=== PATIENT | male | born 1975 | race American Indian/Alaskan Native ===

== ENCOUNTER 2020-06-17 09:53 | Inpatient (IN) | payer OTHER ==
[2020-06-17] MEDS ORDERED: LORazepam 2 MG/ML VIAL ONE (10:26)
[2020-06-17] MEDS ORDERED: SODIUM CHLORIDE 0.9% 1000 ML 1,000 ML IV ONE ×2 (10:27)
[2020-06-17] MEDS ORDERED: LORazepam 2 MG/ML VIAL IV ONE (10:27)
--- NOTE | 2020-06-17 10:35 | Emergency Department Report ---
HPI - General Chief Complaint: Hypoglycemia Time Seen by Provider: 06/17/20 10:19 - HPI HPI: Room 17 The patient is a 44-year-old male present with chief complaint of altered mental status. Per EMS the patient was found lying on the ground outside in the rain. No past medical history was obtained the patient was found to be hyperglycemic. The patient does not answer questions ED Past Medical Hx - Past Medical History Additional medical history: unknown found down in front of home - Surgical History Past Surgical History?: No Additional Surgical History: unknown - Family History Family history: no significant - Social History Smoking Status: Unknown if ever smoked Substance Use Type: Other ED Review of Systems ROS: Stated complaint: UNRESPONSIVE Other details as noted in HPI Comment: Unobtainable due to pts medical conditions Physical Exam - Physical Exam Vital Signs: Vital Signs 06/17/20 10:20 Temperature 97.0 F L Pulse Rate 98 H Respiratory 22 Rate Blood Pressure 96/56 Blood Pressure 96/56 [Right] O2 Sat by Pulse 100 Oximetry Physical Exam: GENERAL: The patient is well-developed well-nourished male lying on stretcher under Aida hugger bilateral upper extremities drawn and similar to decorticate positioning. Patient appears to be shivering HEENT: Normocephalic. Atraumatic. NECK: Supple. Trachea midline CHEST/LUNGS: Clear to auscultation. There is no respiratory distress noted. HEART/CARDIOVASCULAR: Regular. There is no tachycardia. There is no gallop rub or murmur. ABDOMEN: Abdomen is soft, nontender. Patient has normal bowel sounds. There is no abdominal distention. SKIN: There is no rash. There is no edema. There is no diaphoresis. NEURO: The patient does not respond to verbal or tactile stimuli. Patient does not make eye contact MUSCULOSKELETAL: There is no evidence of acute injury. ED Course Vital Signs 06/17/20 10:20 Temperature 97.0 F L Pulse Rate 98 H Respiratory 22 Rate Blood Pressure 96/56 Blood Pressure 96/56 [Right] O2 Sat by Pulse 100 Oximetry ED Medical Decision Making - Lab Data Result diagrams: 06/17/20 11:24 06/17/20 11:24 Laboratory Tests 06/17/20 06/17/20 12 11:24 11:24 11:24 WBC 14.7 H RBC 5.38 H Hgb 14.4 Hct 49.1 H MCV 91 MCH 27 L MCHC 29 L RDW 14.4 Plt Count 265 Lymph % (Auto) 9.9 L Raw[place] % (Auto) 2.8 Eos % (Auto) 0.0 Baso % (Auto) 0.5 Lymph # (Auto) 1.5 [place] # (Auto) 0.4 Eos # (Auto) 0.0 Baso # (Auto) 0.1 Seg Neutrophils % 86.8 H Seg Neutrophils # 12.8 H PT 22.1 H INR 1.92 H APTT 38.9 H VBG pH Sodium 149 H Potassium 3.8 Chloride 100.6 Carbon Dioxide 23 Anion Gap 29 BUN 84 H Creatinine 3.6 H Estimated GFR 19 BUN/Creatinine Ratio 23 Glucose 1394 H* Calcium 9.8 Magnesium Total Bilirubin 0.40 AST 59 H ALT 25 Alkaline Phosphatase 82 Ammonia Total Creatine Kinase 5507 H CK-MB (CK-2) 7.9 H CK-MB (CK-2) Rel Index 0.1 Troponin T Total Protein 9.0 H Albumin 3.7 L Albumin/Globulin Ratio 0.7 TSH Free T4 Plasma/Serum Alcohol 06/17/20 06/17/20 06/17/20 11:24 11:24 11:24 WBC RBC Hgb Hct MCV MCH MCHC RDW Plt Count Lymph % (Auto) Rawlins % (Auto) Eos % (Auto) Baso % (Auto) Lymph # (Auto) [place] # (Auto) Eos # (Auto) Baso # (Auto) Seg Neutrophils % Seg Neutrophils # PT INR APTT VBG pH Sodium Potassium Chloride Carbon Dioxide Anion Gap BUN Creatinine Estimated GFR BUN/Creatinine Ratio Glucose Calcium Magnesium 6.20 H Total Bilirubin AST ALT Alkaline Phosphatase Ammonia 56.0 Total Creatine Kinase CK-MB (CK-2) CK-MB (CK-2) Rel Index Troponin T < 0.010 Total Protein Albumin Albumin/Globulin Ratio TSH 0.914 Free T4 1.65 H Plasma/Serum Alcohol 06/17/20 06/17/20 11:24 11:24 WBC RBC Hgb Hct MCV MCH MCHC RDW Plt Count Lymph % (Auto) [place] % (Auto) Eos % (Auto) Baso % (Auto) Lymph # (Auto) [place] # (Auto) Eos # (Auto) Baso # (Auto) Seg Neutrophils % Seg Neutrophils # PT INR APTT VBG pH 7.123 L* Sodium Potassium Chloride Carbon Dioxide Anion Gap BUN Creatinine Estimated GFR BUN/Creatinine Ratio Glucose Calcium Magnesium Total Bilirubin AST ALT Alkaline Phosphatase Ammonia Total Creatine Kinase CK-MB (CK-2) CK-MB (CK-2) Rel Index Troponin T Total Protein Albumin Albumin/Globulin Ratio TSH Free T4 Plasma/Serum Alcohol < 0.01 - Radiology Data Radiology results: report reviewed (CT head, CT cervical spine), image reviewed (CT head, CT cervical spine) [facility] [address] [place] [address] Cat Scan Report Signed Patient: JERARDO LOPEZ MR #: [id number] : 1975 Acct:[id number] Age/Sex: 44 / M ADM Date: 06/17/20 Loc: ED Attending Dr: Ordering Physician: ANNE MYERS MD Date of Service: 06/17/20 Procedure(s): CT head/brain wo con Accession Number(s): [id number] cc: ANNE MYERS MD CT HEAD WITHOUT CONTRAST INDICATION / CLINICAL INFORMATION: Found lying outside in the rain, AMS. TECHNIQUE: All CT scans at this location are performed using CT dose reduction for ALARA by means of automated exposure control. COMPARISON: None available. FINDINGS: HEMORRHAGE: No evidence of intracranial hemorrhage or extra-axial fluid collection. EXTRA-AXIAL SPACES: Cortical sulci, sylvian fissures and basilar cisterns have an unremarkable appearance. VENTRICULAR SYSTEM: The third and lateral ventricles are of normal size and configuration. CEREBRAL PARENCHYMA: No areas of abnormal brain parenchymal attenuation are identified. There is no indication of recent infarction. MIDLINE SHIFT OR HERNIATION: There is no mass effect. CEREBELLUM / BRAINSTEM: Brainstem and cerebellum have an unremarkable appearance. MIDLINE STRUCTURES:No abnormalities of the pituitary gland or pineal region are identified. INTRACRANIAL VESSELS:No abnormalities are identified on this noncontrast head CT. ORBITS: visualized portions of the orbits have an unremarkable appearance. SOFT TISSUES of HEAD: No significant abnormality. CALVARIUM: Evaluation of bone windows reveals no abnormalities. PARANASAL SINUSES / MASTOID AIR CELLS: Visualized portions of the paranasal sinuses are free from inflammatory mucosal disease. Mastoid air cells are normally pneumatized. IMPRESSION: 1. No acute intracranial abnormality. Signer Name: Donnie Malave MD Signed: 06/17/2020 12:43 PM Workstation Name: [id number] Transcribed By: Dictated By: Donnie Malave MD Electronically Authenticated By: Donnie Malave MD Signed Date/Time: 06/17/20 1243 DD/ 1236 TD/TT: [facility] [address] [place] [address] Cat Scan Report Signed Patient: JERARDO LOPEZ MR #: [id number] : 1975 Acct:[id number] Age/Sex: 44 / M ADM Date: 06/17/20 Loc: ED Attending Dr: Ordering Physician: ANNE MYERS MD Date of Service: 06/17/20 Procedure(s): CT cervical spine wo con Accession Number(s): [id number] cc: ANNE MYERS MD CT CERVICAL SPINE WITHOUT CONTRAST INDICATION / CLINICAL INFORMATION: Found lying outside in the rain, AMS. TECHNIQUE: Axial CT images were obtained through the cervical spine. Sagittal and coronal reformatted images were produced. All CT scans at this location are performed using CT dose reduction for ALARA by means of automated exposure control. COMPARISON: None available. FINDINGS: ALIGNMENT: No significant abnormalities of alignment are identified. There is no indication of traumatic subluxation. VERTEBRAE: No indication of fracture. Incidental note is made of a bone island at the superior endplate of C7 vertebral body. DISC SPACES: Disc height is decreased at the C5-6 level. DEGENERATIVE CHANGES: Anterior osteophyte formation is noted at the C4-5, C5-6 and C6-7 levels. Uncovertebral arthropathy is observed at the C5-6 and C6-7 levels. Multifocal neuroforaminal narrowing is observed. There is no indication of central canal stenosis. CRANIOCERVICAL JUNCTION:No significant abnormality. SPINAL CANAL: Central spinal canal is adequately maintained throughout. PARASPINAL SOFT TISSUES: No significant abnormality. LUNG APICES: Lung apices were entirely excluded from this examination. IMPRESSION: 1. No indication of fracture or traumatic subluxation. 2. Mild cervical spondylosis with multifocal neuroforaminal narrowing. Signer Name: Donnie Malave MD Signed: 06/17/2020 1:03 PM Workstation Name: [id number] Transcribed By: Dictated By: Donnie Malave MD Electronically Authenticated By: Donnie D. Frieda, MD Signed Date/Time: 06/17/20 1303 DD/ 1300 TD/TT: - Differential Diagnosis ICH, substance abuse, intoxication, rhabdomyolysis, seizures Critical care attestation.: If time is entered above; I have spent that time in minutes in the direct care of this critically ill patient, excluding procedure time. ED Disposition Clinical Impression: DKA (diabetic ketoacidoses), Rhabdomyolysis, Altered mental status Disposition: DC-09 OP ADMIT IP TO THIS HOSP Is pt being admited?: Yes Does the pt Need Aspirin: No Condition: Stable Instructions: Diabetic Ketoacidosis (ED) Referrals: PRIMARY CARE, [Primary Care Provider] - 3-5 Days Time of Disposition: 13:46 (Hospitalist notified (Dr. Dent))
[2020-06-17 11:44] LABS: Basophils # (Auto) 0.1 K/mm3 (0.0-0.1); Basophils % (Auto) 0.5 % (0.0-1.8); Lymphocytes # (Auto) 1.5 K/mm3 (1.2-5.4); Lymphocytes % (Auto) 9.9 % (13.4-35.0); Mean Corpuscular HGB Conc 29 % (32-34); Mean Corpuscular Volume 91 fl (84-94); Monocytes # (Auto) 0.4 K/mm3 (0.0-0.8); Monocytes % (Auto) 2.8 % (0.0-7.3); Platelet Count 265 K/mm3 (140-440); Red Blood Count 5.38 M/mm3 (3.65-5.03); Red Cell Distribution Width 14.4 % (13.2-15.2)
[2020-06-17 11:58] LABS: INR 1.92 (0.87-1.13)
[2020-06-17 11:59] LABS: Partial Thromboplastin Time 38.9 Sec. (24.2-36.6)
[2020-06-17 12:10] LABS: Albumin 3.7 g/dL (3.9-5); Calcium 9.8 mg/dL (8.4-10.2); Creatine Kinase MB 7.9 ng/mL (0.0-4.0)
[2020-06-17 12:17] LABS: Hematocrit 49.1 % (35.5-45.6); Hemoglobin 14.4 gm/dl (11.8-15.2)
[2020-06-17 12:20] LABS: Free T4 (Free Thyroxine) 1.65 ng/dL (0.76-1.46)
--- NOTE | 2020-06-17 12:47 | Cat Scan Report ---
CT HEAD WITHOUT CONTRAST INDICATION / CLINICAL INFORMATION: Found lying outside in the [facility], [facility]. TECHNIQUE: All CT scans at this location are performed using CT dose reduction for ALARA by means of automated e xposure control. COMPARISON: None available. FINDINGS: HEMORRHAGE: No evidence of intracranial hemorrhage or extra-axial fluid collection. EXTRA-AXIAL SPACES: Cortical sulci, sylvian fissures and basilar cisterns have an unremarkable appear ance. VENTRICULAR SYSTEM: The third and lateral ventricles are of normal size and configuration. CEREBRAL PARENCHYMA: No areas of abnormal brain parenchymal attenuation are identified. There is no i ndication of recent infarction. MIDLINE SHIFT OR HERNIATION: There is no mass effect. CEREBELLUM / BRAINSTEM: Brainstem and cerebellum have an unremarkable appearance. MIDLINE STRUCTURES:No abnormalities of the pituitary gland or pineal region are identified. INTRACRANIAL VESSELS:No abnormalities are identified on this noncontrast head CT. ORBITS: visualized portions of the orbits have an unremarkable appearance. SOFT TISSUES of HEAD: No significant abnormality. CALVARIUM: Evaluation of bone windows reveals no abnormalities. PARANASAL SINUSES / MASTOID AIR CELLS: Visualized portions of the paranasal sinuses are free from inf lammatory mucosal disease. Mastoid air cells are normally pneumatized. IMPRESSION: 1. No acute intracranial abnormality. Signer Name: Donnie Malave MD Signed: 06/17/2020 12:43 PM Workstation Name: [id number]
--- NOTE | 2020-06-17 13:07 | Cat Scan Report ---
CT CERVICAL SPINE WITHOUT CONTRAST INDICATION / CLINICAL INFORMATION: Found lying outside in the [facility]. TECHNIQUE: Axial CT images were obtained through the cervical spine. Sagittal and coronal reformatted images wer e produced. All CT scans at this location are performed using CT dose reduction for ALARA by means of automated exposure control. COMPARISON: None available. FINDINGS: ALIGNMENT: No significant abnormalities of alignment are identified. There is no indication of trauma tic subluxation. VERTEBRAE: No indication of fracture. Incidental note is made of a bone island at the superior endpla te of C7 vertebral body. DISC SPACES: Disc height is decreased at the C5-6 level. DEGENERATIVE CHANGES: Anterior osteophyte formation is noted at the C4-5, C5-6 and C6-7 levels. Uncov ertebral arthropathy is observed at the C5-6 and C6-7 levels. Multifocal neuroforaminal narrowing is observed. There is no indication of central canal stenosis. CRANIOCERVICAL JUNCTION:No significant abnormality. SPINAL CANAL: Central spinal canal is adequately maintained throughout. PARASPINAL SOFT TISSUES: No significant abnormality. LUNG APICES: Lung apices were entirely excluded from this examination. IMPRESSION: 1. No indication of fracture or traumatic subluxation. 2. Mild cervical spondylosis with multifocal neuroforaminal narrowing. Signer Name: Donnie Malave MD Signed: 06/17/2020 1:03 PM Workstation Name: [id number]
[2020-06-17] MEDS ORDERED: ALBUTEROL 2.5 MG/3 ML NEBU IH PRN (13:40)
[2020-06-17] MEDS ORDERED: HYDROmorphone 1 MG/1 ML INJ IV PRN (13:40)
[2020-06-17] MEDS ORDERED: SODIUM CHLORIDE 0.9% 1000 ML IV SOLN IV ONE (13:40)
--- NOTE | 2020-06-17 13:40 | History and Physical Report ---
History of Present Illness Chief complaint: Unresponsive History of present illness: 44 YO Male with unknown PMH presents to ED for evaluation. The patient is lethargic and unable to provide history at the time of my evaluation. Patient history taken from EMS staff, ED staff. As per staff, the patient was found hay n and unresponsive and lying on the ground outside his home by a neighbor who subsequently notified EMS. Upon arrival the patient was found to be lethargic and in distress and subsequently transported to [facility] for further care and evaluation of the aforementioned symptoms. The patient was seen and evaluated in the emergency department. All lab and imaging studies reviewed. The patient was found to have a body core temperature of 96 F, hypotensive with a blood pressure of 96/56, sepsis, toxic metabolic encephalopathy, acute kidney injury, rhabdomyolysis, as well as concomitant diabetic ketoacidosis. Patient admitted to ICU and initiated on sepsis as well as DKA protocols respectively. No further history obtainable. No prior admission for review. No medication listed for review at time of admission. Patient is confused and lethargic at time of my evaluation but has a positive gag reflex and is able to protect his airway without difficulty. Critical care team consulted in ED. Past History Past Medical History: other (Unknown, unable to obtain) Past Surgical History: Other (Unable to obtain) Social history: single, other (Unable to obtain) Family history: other (Unable to obtain) Medications and Allergies Allergies Allergy/AdvReac Type Severity Reaction Status Date / Time Unable to Assess Allergy Unverified 06/17/20 12:54 Active Meds: Active Medications Insulin Human Regular 100 (units/ Sodium Chloride) 100 mls @ 10 mls/hr IV TITR JERMAINE; Protocol Review of Systems ROS unobtainable: due to mental status Exam - Constitutional Vitals: Temp Pulse Resp BP Pulse Ox 97.0 F L 73 26 H 95/64 97 06/17/20 10:20 06/17/20 12:00 06/17/20 12:00 06/17/20 12:00 06/17/20 12:00 General appearance: Present: severe distress - EENT Eyes: Present: PERRL ENT: clear oral mucosa, hearing decreased - Neck Neck: Present: supple, normal ROM - Respiratory Respiratory: bilateral: CTA - Cardiovascular Rhythm: other (Tachycardia) Peripheral Pulses: abnormal (Capillary refill greater than 3.5 seconds) HEART Score - HEART Score Troponin: Troponin T < 0.010 ng/mL (0.00-0.029) 06/17/20 11:24 Results - Labs CBC & Chem 7: 06/17/20 11:24 06/18/20 11:40 Labs: Abnormal lab results 06/17/20 06/17/20 06/17/20 Range/Units 11:24 11:24 11:24 WBC 14.7 H (4.5-11.0) K/mm3 RBC 5.38 H (3.65-5.03) M/mm3 Hct 49.1 H (35.5-45.6) % MCH 27 L (28-32) pg MCHC 29 L (32-34) % Lymph % (Auto) 9.9 L (13.4-35.0) % Seg Neutrophils % 86.8 H (40.0-70.0) % Seg Neutrophils # 12.8 H (1.8-7.7) K/mm3 PT 22.1 H (12.2-14.9) Sec. INR 1.92 H (0.87-1.13) APTT 38.9 H (24.2-36.6) Sec. VBG pH (7.320-7.420) Sodium 149 H (137-145) mmol/L BUN 84 H (9-20) mg/dL Creatinine 3.6 H (0.8-1.3) mg/dL Glucose 1394 H* (75-100) mg/dL Magnesium (1.7-2.3) mg/dL AST 59 H (5-40) units/L Total Creatine Kinase 5507 H (55-170) units/L CK-MB (CK-2) 7.9 H (0.0-4.0) ng/mL Total Protein 9.0 H (6.3-8.2) g/dL Albumin 3.7 L (3.9-5) g/dL Free T4 (0.76-1.46) ng/dL 06/17/20 06/17/20 06/17/20 Range/Units 11: 11:24 11:24 WBC (4.5-11.0) K/mm3 RBC (3.65-5.03) M/mm3 Hct (35.5-45.6) % MCH (28-32) pg MCHC (32-34) % Lymph % (Auto) (13.4-35.0) % Seg Neutrophils % (40.0-70.0) % Seg Neutrophils # (1.8-7.7) K/mm3 PT (12.2-14.9) Sec. INR (0.87-1.13) APTT (24.2-36.6) Sec. VBG pH 7.123 L* (7.320-7.420) Sodium (137-145) mmol/L BUN (9-20) mg/dL Creatinine (0.8-1.3) mg/dL Glucose (75-100) mg/dL Magnesium 6.20 H (1.7-2.3) mg/dL AST (5-40) units/L Total Creatine Kinase (55-170) units/L CK-MB (CK-2) (0.0-4.0) ng/mL Total Protein (6.3-8.2) g/dL Albumin (3.9-5) g/dL Free T4 1.65 H (0.76-1.46) ng/dL Assessment and Plan - Patient Problems (1) Sepsis Current Visit: Yes Status: Acute Plan to address problem: Sepsis protocol: CBC, CMP, chest x-ray, urinalysis, IV fluid resuscitation therapy, IV antibiotic therapy, serial lactic acid, blood culture, monitor urine output every shift, monitor fluid balance, maintain mean arterial pressure grea ter than or equal to 65, The high probability of a clinically significant, sudden or life threatening deterioration of the [cardiac, neuro, pulmonary, renal, endocrine] system(s) required my full and direct attention, intervention and personal management. The aggregate critical care time was [65] minutes. This time is in addition to time spent performing reported procedures but includes the following: [x] Data Review and interpretation [x] Patient assessment and monitoring of vital signs [x] Documentation [x] Medication orders and management (2) Toxic metabolic encephalopathy Current Visit: Yes Status: Acute Plan to address problem: CT head without contrast, neuro check, seizure precautions, aspiration precautions (3) Rhabdomyolysis Current Visit: Yes Status: Acute Qualifiers: Encounter type: initial encounter Plan to address problem: IV fluid resuscitation therapy, repeat CK level, monitor urine output every shift, monitor fluid balance. (4) YUNI (acute kidney injury) Current Visit: Yes Status: Acute Plan to address problem: IV fluid resuscitation therapy, BMP, repeat BMP in a.m. to monitor serum GFR as well as serum creatinine. (5) DKA (diabetic ketoacidoses) Current Visit: Yes Status: Acute Qualifiers: Diabetes mellitus complication detail: with coma Plan to address problem: DKA protocol: Insulin drip, IV fluid resuscitation therapy, monitor urine output every shift, serial BMP, monitor anion gap, (6) Rhabdomyolysis Current Visit: Yes Status: Acute Qualifiers: Encounter type: initial encounter Plan to address problem: IV fluid resuscitation therapy, monitor urine output every shift, (7) DVT prophylaxis Current Visit: Yes Status: Acute Plan to address problem: SCD to bilateral lower extremities while in bed, prophylactic anticoagulation
[2020-06-17] MEDS ORDERED: SODIUM CHLORIDE 0.9% 1000 ML 1,000 ML IV SCH (14:00)
[2020-06-17] MEDS: INSULIN REGULAR, HUMAN 100 UNITS in SODIUM CHLORIDE 0.9% 99 ML IV SCH ×2 (14:01→22:23)
[2020-06-17 16:25] LABS: Calcium 7.8 mg/dL (8.4-10.2)
[2020-06-17] MEDS ORDERED: SODIUM BICARB 8.4% 50 MEQ/50 ML SYRINGE IV ONE ×2 (17:44→19:53)
[2020-06-17] MEDS ORDERED: SODIUM CHLORIDE 0.9% 1000 ML 3,000 ML IV ONE (17:44)
[2020-06-17 19:35] LABS: Calcium 7.9 mg/dL (8.4-10.2)
[2020-06-17] MEDS ORDERED: SODIUM CHLORIDE 0.45% IV SCH (20:00)
[2020-06-17 21:40] LABS: Bilirubin,Urine NEG (Negative); Blood,Urine LG (Negative); Color,Urine Yellow (Yellow); Mucus,Urine FEW /HPF; Urobilinogen,Urine < 2.0 mg/dL (<2.0)
[2020-06-17 21:48] LABS: Amphetamine Screen,Urine Negative; Benzodiazepines Screen,Urine Negative; Cannabinoid Screen,Urine Negative; Cocaine Screen,Urine Negative; Methadone Screen,Urine Negative; Opiate Screen,Urine Negative
[2020-06-17 21:59] LABS: Calcium 7.8 mg/dL (8.4-10.2)
[2020-06-17] MEDS ORDERED: NACL 0.45%/KCL 20 MEQ 20 MEQ/1,000 ML BAG IV SCH (22:00)
[2020-06-17] MEDS: HEPARIN 5,000 UNIT/1 ML VIAL SUB-Q SCH (22:24)
[2020-06-18 00:45] LABS: Calcium 7.8 mg/dL (8.4-10.2)
[2020-06-18] MEDS ORDERED: D5W/0.45% NACL/KCL 20 MEQ 20 MEQ/1,000 ML BAG IV SCH (07:00)
[2020-06-18 07:35] LABS: Calcium 8.1 mg/dL (8.4-10.2)
[2020-06-18] MEDS: INSULIN REGULAR, HUMAN 100 UNITS in SODIUM CHLORIDE 0.9% 99 ML IV SCH (10:49)
[2020-06-18] MEDS ORDERED: SODIUM BICARB 8.4% 50 MEQ/50 ML SYRINGE IV ONE (11:08)
[2020-06-18] MEDS ORDERED: SODIUM BICARBONATE 150 MEQ in DEXTROSE 5% IN WATER 1,000 ML IV SCH (12:00)
[2020-06-18 12:24] LABS: Calcium 7.8 mg/dL (8.4-10.2)
[2020-06-18] MEDS: HEPARIN 5,000 UNIT/1 ML VIAL SUB-Q SCH ×2 (13:22→21:59)
[2020-06-18] MEDS: INSULIN LISPRO 100 UNIT/ML VIAL 3 mL SUB-Q SCH ×2 (16:34→22:08)
--- NOTE | 2020-06-18 18:07 | Consultation ---
History of Present Illness Consult date: 06/18/20 Requesting physician: RAN VO Reason for consult: other (Severe Sepsis; DKA) History of present illness: PULMONARY/CCM CONSULT NOTE (Full dictation # [id number]) Please see dictated notes for full details Past History Past Medical History: other (Unknown, unable to obtain) Past Surgical History: Other (Unable to obtain) Social history: single, other (Unable to obtain) Family history: other (Unable to obtain) Medications and Allergies Allergies Allergy/AdvReac Type Severity Reaction Status Date / Time Unable to Assess Allergy Unverified 06/17/20 12:54 Active Meds: Active Medications Acetaminophen (Acetaminophen 325 Mg Tab) 650 mg PO Q6H PRN PRN Reason: Pain, Mild (1-3) Albuterol (Albuterol 2.5 Mg/3 Ml Nebu) 2.5 mg IH Q3HRT PRN PRN Reason: Shortness Of Breath Heparin Sodium (Porcine) (Heparin 5,000 Unit/1 Ml Vial) 5,000 unit SUB-Q Q12HR JERMAINE Last Admin: 06/18/20 13:22 Dose: 5,000 unit Documented by: Hydromorphone HCl (Hydromorphone 1 Mg/1 Ml Inj) 0.25 mg IV Q4H PRN PRN Reason: Pain, Moderate (4-6) Insulin Human Regular 100 (units/ Sodium Chloride) 100 mls @ 10 mls/hr IV TITR JERMAINE; Protocol Last Titration: 06/18/20 15:27 Dose: 0 units/hr, 0 mls/hr Documented by: Levofloxacin/Dextrose (Levaquin 750mg/150ml) 750 mg in 150 mls @ 100 mls/hr IV Q48H JERMAINE; Protocol Last Admin: 06/17/20 15:01 Dose: 100 mls/hr Documented by: Sodium Chloride (Nacl 0.9% 1000 Ml) 1,000 mls @ 150 mls/hr IV DIRECT JERMAINE Sodium Chloride (Nacl 0.45% 1000 Ml) 3,000 mls @ 999 mls/hr IV DIRECT JERMAINE Last Admin: 06/17/20 20:08 Dose: 999 mls/hr Documented by: Potassium Chloride/Sodium Chloride (Ns 0.45/Kcl 20meq) 20 meq in 1,000 mls @ 150 mls/hr IV DIRECT JERMAINE Last Admin: 06/17/20 21:56 Dose: 150 mls/hr Documented by: Potassium Chloride/Dextrose/Sod Cl (D5w/0.45% Nacl/Kcl 20 Meq) 20 meq in 1,000 mls @ 150 mls/hr IV DIRECT [facility] Last Admin: 06/18/20 15:24 Dose: 150 mls/hr Documented by: Insulin Human Lispro (Insulin Lispro 100 Unit/Ml Vial 3 Ml) 0 unit SUB-Q Q6H SC H; Protocol Last Admin: 06/18/20 16:34 Dose: 3 unit Documented by: Sodium Chloride (Sodium Chloride 0.9% 10 Ml Flush Syringe) 10 ml IV BID [facility] Last Admin: 06/18/20 13:23 Dose: 10 ml Documented by: Sodium Chloride (Sodium Chloride 0.9% 10 Ml Flush Syringe) 10 ml IV PRN PRN PRN Reason: LINE FLUSH Physical Examination Vital signs: Vital Signs Temp Pulse Resp BP Pulse Ox 97.0 F L 68 22 96/56 100 06/17/20 10:20 06/17/20 10:20 06/17/20 10:20 06/17/20 10:20 06/17/20 10:20 Results - Laboratory Findings CBC and BMP: 06/17/20 11:24 06/18/20 11:40 PT/INR, D-dimer PT 22.1 Sec. (12.2-14.9) H 06/17/20 11:24 INR 1.92 (0.87-1.13) H 06/17/20 11:24 Abnormal lab findings: Abnormal Labs 06/17/20 06/17/20 06/17/20 11:24 11:24 11:24 WBC 14.7 H RBC 5.38 H Hct 49.1 H MCH 27 L MCHC 29 L Lymph % (Auto) 9.9 L Seg Neutrophils % 86.8 H Seg Neutrophils # 12.8 H PT 22.1 H INR 1.92 H APTT 38.9 H VBG pH Sodium 149 H Potassium Chloride Carbon Dioxide BUN 84 H Creatinine 3.6 H Glucose 1394 H* POC Glucose Lactic Acid Calcium Phosphorus Magnesium AST 59 H Total Creatine Kinase 5507 H CK-MB (CK-2) 7.9 H Total Protein 9.0 H Albumin 3.7 L Free T4 Urine WBC (Auto) 12/2406/17/20 06/17/20 11:24 11:24 11:24 WBC RBC Hct MCH MCHC Lymph % (Auto) Seg Neutrophils % Seg Neutrophils # PT INR APTT VBG pH 7.123 L* Sodium Potassium Chloride Carbon Dioxide BUN Creatinine Glucose POC Glucose Lactic Acid Calcium Phosphorus Magnesium 6.20 H AST Total Creatine Kinase CK-MB (CK-2) Total Protein Albumin Free T4 1.65 H Urine WBC (Auto) 06/17/20 06/17/20 06/17/20 15:27 15:33 15:33 WBC RBC Hct MCH MCHC Lymph % (Auto) Seg Neutrophils % Seg Neutrophils # PT INR APTT VBG pH Sodium Potassium Chloride Carbon Dioxide BUN Creatinine Glucose 1086 H* POC Glucose > 600 H Lactic Acid Calcium Phosphorus 9.40 H Magnesium 4.50 H AST Total Creatine Kinase CK-MB (CK-2) Total Protein Albumin Free T4 Urine WBC (Auto) 06/17/20 06/17/20 06/17/20 16:58 18:39 18:41 WBC RBC Hct MCH MCHC Lymph % (Auto) Seg Neutrophils % Seg Neutrophils # PT INR APTT VBG pH Sodium 155 H 154 H Potassium 3.0 L D 2.8 L* Chloride 114.0 H 117.3 H Carbon Dioxide 20 L 19 L BUN 83 H 84 H Creatinine 3.2 H 3.3 H Glucose 1046 H* 830 H* POC Glucose > 600 H Lactic Acid Calcium 7.8 L D 7.9 L Phosphorus Magnesium AST Total Creatine Kinase CK-MB (CK-2) Total Protein Albumin Free T4 Urine WBC (Auto) 06/17/20 06/17/20 06/17/20 21:15 21:15 Unknown WBC RBC Hct MCH MCHC Lymph % (Auto) Seg Neutrophils % Seg Neutrophils # PT INR APTT VBG pH Sodium 157 H Potassium 2.9 L* Chloride 118.8 H Carbon Dioxide 19 L BUN 84 H Creatinine 3.3 H Glucose 666 H* POC Glucose Lactic Acid 2.80 H* Calcium 7.8 L Phosphorus Magnesium AST Total Creatine Kinase CK-MB (CK-2) Total Protein Albumin Free T4 Urine WBC (Auto) 7.0 H 06/18/20 06/18/20 06/18/20 00:10 00:20 03:20 WBC RBC Hct MCH MCHC Lymph % (Auto) Seg Neutrophils % Seg Neutrophils # PT INR APTT VBG pH Sodium 160 H Potassium 3.0 L Chloride 118.8 H Carbon Dioxide BUN 89 H Creatinine 3.8 H Glucose 650 H* POC Glucose 291 H Lactic Acid 2.40 H* Calcium 7.8 L Phosphorus Magnesium AST Total Creatine Kinase CK-MB (CK-2) Total Protein Albumin Free T4 Urine WBC (Auto) 06/18/20 06/18/20 06/18/20 05:19 06:27 06:27 WBC RBC Hct MCH MCHC Lymph % (Auto) Seg Neutrophils % Seg Neutrophils # PT INR APTT VBG pH Sodium 167 H* Potassium 3.4 L Chloride 126.4 H Carbon Dioxide 21 L BUN 99 H Creatinine 4.5 H Glucose 291 H POC Glucose 276 H Lactic Acid 2.80 H* Calcium 8.1 L Phosphorus Magnesium AST Total Creatine Kinase CK-MB (CK-2) Total Protein Albumin Free T4 Urine WBC (Auto) 06/18/20 06/18/20 06/18/20 06:45 08:40 08:49 WBC RBC Hct MCH MCHC Lymph % (Auto) Seg Neutrophils % Seg Neutrophils # PT INR APTT VBG pH Sodium Potassium Chloride Carbon Dioxide BUN Creatinine Glucose POC Glucose 215 H 182 H Lactic Acid 2.20 H* Calcium Phosphorus Magnesium AST Total Creatine Kinase CK-MB (CK-2) Total Protein Albumin Free T4 Urine WBC (Auto) 06/18/20 06/18/20 06/18/20 10:01 10:28 11:40 WBC RBC Hct MCH MCHC Lymph % (Auto) Seg Neutrophils % Seg Neutrophils # PT INR APTT VBG pH Sodium 161 H* Potassium Chloride 125.4 H Carbon Dioxide 21 L BUN 98 H Creatinine 5.0 H Glucose 247 H POC Glucose 217 H Lactic Acid 3.20 H* Calcium 7.8 L Phosphorus Magnesium AST Total Creatine Kinase CK-MB (CK-2) Total Protein Albumin Free T4 Urine WBC (Auto) 06/18/20 06/18/20 06/18/20 11:40 11:40 12:33 WBC RBC Hct MCH MCHC Lymph % (Auto) Seg Neutrophils % Seg Neutrophils # PT INR APTT VBG pH Sodium Potassium Chloride Carbon Dioxide BUN Creatinine Glucose POC Glucose 199 H Lactic Acid 2.40 H* Calcium Phosphorus Magnesium AST Total Creatine Kinase 18253 H CK-MB (CK-2) Total Protein Albumin Free T4 Urine WBC (Auto) 12/25/20 12/25/20 13:57 16:27 WBC RBC Hct MCH MCHC Lymph % (Auto) Seg Neutrophils % Seg Neutrophils # PT INR APTT VBG pH Sodium Potassium Chloride Carbon Dioxide BUN Creatinine Glucose POC Glucose 198 H 185 H Lactic Acid Calcium Phosphorus Magnesium AST Total Creatine Kinase CK-MB (CK-2) Total Protein Albumin Free T4 Urine WBC (Auto)
--- NOTE | 2020-06-18 18:57 | Progress Note ---
Assessment and Plan - Patient Problems (1) Sepsis Current Visit: Yes Status: Acute Plan to address problem: Sepsis protocol: CBC, CMP, chest x-ray, urinalysis, IV fluid resuscitation therapy, IV antibiotic therapy, serial lactic acid, blood culture, monitor urine output every shift, monitor fluid balance, maintain mean arterial pressure greater than or equal to 65, The high probability of a clinically significant, sudden or life threatening deterioration of the [cardiac, neuro, pulmonary, renal, endocrine] system(s) required my full and direct attention, intervention and personal management. The aggregate critical care time was [65] minutes. This time is in addition to time spent performing reported procedures but includes the following: [x] Data Review and interpretation [x] Patient assessment and monitoring of vital signs [x] Documentation [x] Medication orders and management (2) Toxic metabolic encephalopathy Current Visit: Yes Status: Acute Plan to address problem: CT head without contrast reviewed, neuro check, seizure precautions, aspiration precautions (3) Rhabdomyolysis Current Visit: Yes Status: Acute Qualifiers: Encounter type: initial encounter Plan to address problem: IV fluid resuscitation therapy, repeat CK level, monitor urine output every shift, monitor fluid balance. (4) YUNI (acute kidney injury) Current Visit: Yes Status: Acute Plan to address problem: IV fluid resuscitation therapy, BMP, repeat BMP in a.m. to monitor serum GFR as well as serum creatinine. (5) DKA (diabetic ketoacidoses) Current Visit: Yes Status: Acute Qualifiers: Diabetes mellitus complication detail: with coma Plan to address problem: DKA resolved, sliding-scale insulin therapy, Accu-Chek, hypoglycemia protocol (6) Rhabdomyolysis Current Visit: Yes Status: Acute Qualifiers: Encounter type: initial encounter Plan to address problem: IV fluid resuscitation therapy, monitor urine output every shift, CK level improving today. Repeat CK in a.m. (7) DVT prophylaxis Current Visit: Yes Status: Acute Plan to address problem: SCD to bilateral lower extremities while in bed, prophylactic anticoagulation History Interval history: 44 YO Male HD #2 with Sepsis, DKA, Toxic Metabolic Encephalopathy, YUNI, Rhabdomyolysis, Hypothermia. Patient status mildly improved today. Patient is more alert and responsive. Patient DKA has resolved. DKA protocol has been discontinued. Patient remains critically ill. We will continue current care plan. Was encourage oral free water intake as tolerated. No reported nursing events. Hospitalist Physical - Constitutional Vitals: Temp Pulse Resp BP Pulse Ox 98.2 F 116 H 32 H 122/92 96 06/18/20 12:20 06/18/20 13:00 06/18/20 13:00 06/18/20 13:00 06/18/20 13:00 General appearance: Present: severe distress - EENT Eyes: Present: PERRL - Neck Neck: Present: supple - Respiratory Respiratory: bilateral: CTA - Cardiovascular Rhythm: regular Heart Sounds: Present: S1 & S2 - Extremities Extremities: no ischemia Peripheral Pulses: within normal limits - Abdominal General gastrointestinal: soft, non-tender, non-distended - Integumentary Integumentary: Present: clear, dry - Psychiatric Psychiatric: agitated - Neurologic Neurologic: CNII-XII intact, no focal deficits, moves all extremities, no gait normal HEART Score - HEART Score Troponin: Troponin T < 0.010 ng/mL (0.00-0.029) 06/17/20 11:24 Results - Labs CBC & Chem 7: 06/17/20 11:24 06/18/20 11:40 Labs: Laboratory Last Values WBC 14.7 K/mm3 (4.5-11.0) H 06/17/20 11:24 RBC 5.38 M/mm3 (3.65-5.03) H 06/17/20 11:24 Hgb 14.4 gm/dl (11.8-15.2) 06/17/20 11:24 Hct 49.1 % (35.5-45.6) H 06/17/20 11:24 MCV 91 fl (84-94) 06/17/20 11:24 MCH 27 pg (28-32) L 06/17/20 11:24 MCHC 29 % (32-34) L 06/17/20 11:24 RDW 14.4 % (13.2-15.2) 06/17/20 11:24 Plt Count 265 K/mm3 (140-440) 06/17/20 11:24 Lymph % (Auto) 9.9 % (13.4-35.0) L 06/17/20 11:24 King % (Auto) 2.8 % (0.0-7.3) 06/17/20 11:24 Eos % (Auto) 0.0 % (0.0-4.3) 06/17/20 11:24 Baso % (Auto) 0.5 % (0.0-1.8) 06/17/20 11:24 Lymph # (Auto) 1.5 K/mm3 (1.2-5.4) 06/17/20 11:24 King # (Auto) 0.4 K/mm3 (0.0-0.8) 06/17/20 11:24 Eos # (Auto) 0.0 K/mm3 (0.0-0.4) 06/17/20 11:24 Baso # (Auto) 0.1 K/mm3 (0.0-0.1) 06/17/20 11:24 Seg Neutrophils % 86.8 % (40.0-70.0) H 06/17/20 11:24 Seg Neutrophils # 12.8 K/mm3 (1.8-7.7) H 06/17/20 11:24 PT 22.1 Sec. (12.2-14.9) H 06/17/20 11:24 INR 1.92 (0.87-1.13) H 06/17/20 11:24 APTT 38.9 Sec. (24.2-36.6) H 06/17/20 11:24 VBG pH 7.123 (7.320-7.420) L* 06/17/20 11:24 Sodium 161 mmol/L (137-145) H* 06/18/20 11:40 Potassium 3.9 mmol/L (3.6-5.0) 06/18/20 11:40 Chloride 125.4 mmol/L (98-107) H 06/18/20 11:40 Carbon Dioxide 21 mmol/L (22-30) L 06/18/20 11:40 Anion Gap 19 mmol/L 06/18/20 11:40 BUN 98 mg/dL (9-20) H 06/18/20 11:40 Creatinine 5.0 mg/dL (0.8-1.3) H 06/18/20 11:40 Estimated GFR 15 ml/min 06/18/20 11:40 BUN/Creatinine Ratio 20 % 06/18/20 11:40 Glucose 247 mg/dL (75-100) H 06/18/20 11:40 POC Glucose 185 mg/dL (70-105) H 06/18/20 16:27 Lactic Acid 2.40 mmol/L (0.7-2.0) H* 06/18/20 11:40 Calcium 7.8 mg/dL (8.4-10.2) L 06/18/20 11:40 Phosphorus 9.40 mg/dL (2.5-4.5) H 06/17/20 15:33 Magnesium 4.50 mg/dL (1.7-2.3) H 06/17/20 15:33 Total Bilirubin 0.40 mg/dL (0.1-1.2) 06/17/20 11:24 AST 59 units/L (5-40) H 06/17/20 11:24 ALT 25 units/L (7-56) 06/17/20 11:24 Alkaline Phosphatase 82 units/L (35-129) 06/17/20 11:24 Ammonia 56.0 umol/L (25-60) 06/17/20 11:24 Total Creatine Kinase 19824 units/L (55-170) H 06/18/20 11:40 CK-MB (CK-2) 7.9 ng/mL (0.0-4.0) H 06/17/20 11:24 CK-MB (CK-2) Rel Index 0.1 (0-4) 06/17/20 11:24 Troponin T < 0.010 ng/mL (0.00-0.029) 06/17/20 11:24 Total Protein 9.0 g/dL (6.3-8.2) H 06/17/20 11:24 Albumin 3.7 g/dL (3.9-5) L 06/17/20 11:24 Albumin/Globulin Ratio 0.7 % 06/17/20 11:24 TSH 0.914 mlU/mL (0.270-4.200) 06/17/20 11:24 Free T4 1.65 ng/dL (0.76-1.46) H 06/17/20 11:24 Urine Color Yellow (Yellow) 06/17/20 Unknown Urine Turbidity Slightly-cloudy (Clear) 06/17/20 Unknown Urine pH 5.0 (5.0-7.0) 06/17/20 Unknown Ur Specific [place] 1.022 (1.003-1.030) 06/17/20 Unknown Urine Protein 100 mg/dl mg/dL (Negative) 06/17/20 Unknown Urine Glucose (UA) >=500 mg/dL (Negative) 06/17/20 Unknown Urine Ketones Neg mg/dL (Negative) 06/17/20 Unknown Urine Blood Lg (Negative) 06/17/20 Unknown Urine Nitrite Neg (Negative) 06/17/20 Unknown Urine Bilirubin Neg (Negative) 06/17/20 Unknown Urine Urobilinogen < 2.0 mg/dL (<2.0) 06/17/20 Unknown Ur Leukocyte Esterase Neg (Negative) 06/17/20 Unknown Urine WBC (Auto) 7.0 /HPF (0.0-6.0) H 06/17/20 Unknown Urine RBC (Auto) 5.0 /HPF (0.0-6.0) 06/17/20 Unknown U Epithel Cells (Auto) < 1.0 /HPF (0-13.0) 06/17/20 Unknown Urine Mucus Few /HPF 06/17/20 Unknown Urine Opiates Screen Negative 06/17/20 Unknown Urine Methadone Screen Negative 06/17/20 Unknown Ur Barbiturates Screen Negative 06/17/20 Unknown Ur Phencyclidine Scrn Negative 06/17/20 Unknown Ur Amphetamines Screen Negative 06/17/20 Unknown U Benzodiazepines Scrn Negative 06/17/20 Unknown Urine Cocaine Screen Negative 06/17/20 Unknown U Marijuana (THC) Screen Negative 06/17/20 Unknown Drugs of Abuse Note Disclamer 06/17/20 Unknown Plasma/Serum Alcohol < 0.01 % (0-0.07) 06/17/20 11:24 Blood Type B POSITIVE 06/17/20 15:40 Antibody Screen Negative 06/17/20 15:40 Microbiology: Microbiology 06/17/20 15:33 Peripheral/Venous Blood Culture - Preliminary NO GROWTH AFTER 24 HOURS 06/17/20 15:33 Peripheral/Venous Blood Culture - Preliminary NO GROWTH AFTER 24 HOURS Garcia/IV: IV Catheter Type [Left Hand] Peripheral IV IV Catheter Type [Right INT / Saline Lock Antecubital] Active Medications - Current Medications Current Medications: Generic Name Dose Route Start Last Admin Trade Name Freq PRN Reason Stop Dose Admin Acetaminophen 650 mg 06/17/20 13:40 Acetaminophen 325 Mg Tab PO Q6H PRN Pain, Mild (1-3) Albuterol 2.5 mg 06/17/20 13:40 Albuterol 2.5 Mg/3 Ml Nebu IH Q3HRT PRN Shortness Of Breath Heparin Sodium (Porcine) 5,000 unit 06/17/20 22:00 06/18/20 13:22 Heparin 5,000 Unit/1 Ml Vial SUB-Q 5,000 unit Q12HR JERMAINE Administration Heparin Sodium (Porcine) 5,000 unit 06/18/20 22:00 Heparin 5,000 Unit/1 Ml Vial SUB-Q Q12HR JERMAINE Hydromorphone HCl 0.25 mg 06/17/20 13:40 Hydromorphone 1 Mg/1 Ml Inj IV Q4H PRN Pain, Moderate (4-6) Insulin Human Regular 100 100 mls @ 10 mls/hr 06/17/20 13:00 06/18/20 15:27 units/ Sodium Chloride IV 0 units/hr TITR JERMAINE 0 mls/hr Titration Protocol 10 UNITS/HR Levofloxacin/Dextrose 750 mg in 150 mls @ 100 mls/hr 06/17/20 14:00 06/17/20 15:01 Levaquin 750mg/150ml IV 100 mls/hr Q48H JERMAINE Administration Protocol Sodium Chloride 1,000 mls @ 150 mls/hr 06/17/20 14:00 Nacl 0.9% 1000 Ml IV DIRECT JERMAINE Sodium Chloride 3,000 mls @ 999 mls/hr 06/17/20 20:00 06/17/20 20:08 Nacl 0.45% 1000 Ml IV 999 mls/hr DIRECT JERMAINE Administration Potassium Chloride/Sodium Chloride 20 meq in 1,000 mls @ 150 mls/hr 06/17/20 22:00 06/17/20 21:56 Ns 0.45/Kcl 20meq IV 150 mls/hr DIRECT JERMAINE Administration Potassium Chloride/Dextrose/Sod Cl 20 meq in 1,000 mls @ 150 mls/hr 06/18/20 07:00 06/18/20 15:24 D5w/0.45% Nacl/Kcl 20 Meq IV 150 mls/hr DIRECT JERMAINE Administration Insulin Human Lispro 0 unit 06/18/20 16:00 06/18/20 16:34 Insulin Lispro 100 Unit/Ml Vial 3 Ml SUB-Q 3 unit Q6H JREMAINE Administration Protocol Sodium Chloride 10 ml 06/17/20 22:00 06/18/20 13:23 Sodium Chloride 0.9% 10 Ml Flush Syringe IV 10 ml BID JERMAINE Administration Sodium Chloride 10 ml 06/17/20 13:40 Sodium Chloride 0.9% 10 Ml Flush Syringe IV PRN PRN LINE FLUSH
[2020-06-18] MEDS ORDERED: HEPARIN 5,000 UNIT/1 ML VIAL SUB-Q SCH (22:00)
--- NOTE | 2020-06-18 23:38 | Consultation ---
PULMONARY CRITICAL CARE CONSULT NOTE CONSULTING PHYSICIAN: Dr. Pedro Pablo Dent REASON FOR CONSULTATION: Diabetic ketoacidosis, sepsis. CHIEF COMPLAINT AND HISTORY OF PRESENT ILLNESS: The patient is a now 44-year-old male with a past medical history that is still described as being unknown secondary to a large extent to the patient having an acute encephalopathy/psychotic episode and being unable to give me much of the history, came into the Emergency Room, lethargic. According to the records, he was found down unresponsive outside his home by a neighbor. In the ER, he was not hypothermic. He was hypotensive. He had what was felt to be in acute toxic metabolic encephalopathy. He showed signs of an acute kidney injury/rhabdomyolysis and was found to be in diabetic ketoacidosis. He was started on IV insulin drip and Critical Care was asked to assist with management. When I stopped by to see him, he was resting in bed. He was on IV insulin drip that was just about to be stopped. His numbers and gap was getting better. His nurse denied any nausea or vomiting as did the patient. When I asked if he was a tobacco use/abuse, he nodded his head no. When I asked about his father's symptoms if he was having nausea, vomiting at home, if he had any pain, he burst out laughing and really did not tell me much except to say that he was really thirsty. This really is as much of the history of presentation as I have. PAST MEDICAL HISTORY: Unknown, presumed diabetic. PAST SURGICAL HISTORY: Unknown. MEDICATIONS: He was on at the time I stopped by to see him, according to medication physician record included the following: Tylenol 650 mg p.o. q. 6 hours p.r.n. mild pain or fevers, albuterol 2.5 mg nebulized q.3 hours p.r.n. shortness of breath, heparin 5000 units subcutaneous q. 12 hours, Dilaudid 0.25 mg IV q. 4 hours p.r.n. moderate pain. He had been on an insulin drip, I believe at 3 units per hour, Levaquin 750 mg IV q. 48 hours, D5 half NS with 20 mEq of KCl per liter was going at 150 per hour and being adjusted per protocol. ALLERGIES: Unknown. DIET: Thin gentleman, acute weight loss or gain history is unknown. FAMILY AND SOCIAL HISTORY: Apparently brought in from the community. According to the record in front of his house, alcohol, tobacco, or illicit drug use or abuse history is unknown. FAMILY HISTORY: Otherwise, unknown. REVIEW OF SYSTEMS: Unobtainable secondary to patient's medical and mental condition. Since he has been here, no gross hematochezia or melena, no gross hematuria, no hematemesis, no hemoptysis and no witnessed seizures have been reported. Review of systems otherwise unobtainable or as in the body of history above. PHYSICAL EXAMINATION: VITAL SIGNS: On examination at presentation in the Emergency Room and since he has been afebrile, presentation, temperature 97.0 degrees Fahrenheit with a pulse of 68, respiratory rate of 22, blood pressure 96/56, O2 sats 100%, inspired oxygen concentration at that time was not recorded. When I stopped by to see him, he was 98% on room air. GENERAL: He is a middle-aged male, normocephalic, looks atraumatic, resting in bed with normal respiratory effort at rest. HEAD, EYES, EARS, NOSE AND THROAT: Anicteric. No conjunctival erythema. Oropharynx was dry. His lips are parched. No gross jugular venous distention, no thyromegaly. NECK: Grossly, there were no palpable lymph nodes in the supraclavicular or submandibular lymph node chains. LUNGS: Auscultation of both lung morocho unremarkable. Lungs are clear bilaterally with good bilateral air movement. HEART: Heart sounds 1 and 2 are heard, regular rate and rhythm at time of my evaluation without overt rubs or murmurs. ABDOMEN: Soft, flat. Bowel sounds positive, nontender, no palpable hepatosplenomegaly. EXTREMITIES: Without overt digital clubbing, no cyanosis, no pedal edema. Pedal pulses are 2+ bilaterally. NEUROLOGIC: Pupils are equal, round, about 4 mm, reactive to light. Extraocular muscle movements are intact. He moves all 4 extremities spontaneously. SKIN: Poor turgor in the areas examined; however, without overt cellulitis or rash. Please see the wound care nurse's notes for full description of his skin. PSYCHIATRIC: Mood and affect were happy. He appeared to have some element of psychosis and he had a tangential thinking and thoughts. LABORATORY DATA: From my review as follows: Admission white cell count 14,700; hemoglobin 14.4; hematocrit 49.1; platelet count was 265. INR 1.92. Venous blood gas at presentation showed a pH of 7.123. Serum sodium was 149, potassium 3.8, chloride 101, bicarbonate 23, BUN 84, creatinine 0.6, glucose was 1394. AST was up at 59, otherwise liver function tests essentially within normal limits. CPK was up 5507. Troponin within normal limits. TSH within normal limits. Urinalysis was negative for nitrites and leukocyte esterase, essentially bland. Urine drug screen was negative. Blood alcohol level was less than 0.01 mg/dL. Two sets of blood cultures, no growth to date. CT scan of his head was done, it was read as no acute intracranial abnormality. A CT scan of the C-spine was also done. It was read as no indication of fracture or traumatic subluxation. He had some mild cervical spondylosis. ASSESSMENT: 1. Diabetic ketoacidosis. 2. Acute toxic metabolic encephalopathy. 3. Severe sepsis at presentation. 4. Leukocytosis, presumably stress leukocytosis. 5. Hypernatremia. 6. Rhabdomyolysis. 7. Acute kidney injury, but I cannot rule out a chronic component. 8. Acute encephalopathy. PLAN: I will continue the diabetic ketoacidosis protocol. He will be continued on IV insulin and is about to be stopped. He will be transitioned to oral nutrition. Electrolytes will be followed and corrected as necessary. Nephrology consultation has been placed. The serum creatinine level is actually worsening and he may well end up on dialysis. He is making some urine at this point. Inputs and outputs will be strictly monitored. Electrolytes again will be corrected as necessary. We will continue empiric Levaquin monotherapy at this point in time. Cultures will be followed. Anti-infectives will be deescalated based on results of clinical and microbiologic data. I will order a procalcitonin level to also help guide clinical decision making. His lactic acid level has actually headed up. We will continue volume resuscitation. I will repeat a lactic acid level in the morning. He is appropriately on DVT prophylaxis. I will put him on GI prophylaxis with Pepcid. Flu and pneumonia vaccination will be addressed per protocol. Blood pressure is responding to volume. Otherwise, vasopressors will be weaned for target mean arterial pressure greater than about or equal to 65 mmHg. Thank you very much for the consult. We will follow along and make further recommendations as picture progresses/becomes clearer. JOB# [id number] YUKO/TELLO CHRISTIAN
[2020-06-18] MEDS ORDERED: SODIUM CHLORIDE 0.9% 1000 ML 1,000 ML IV SCH (23:45)
[2020-06-19 01:46] LABS: Calcium 7.4 mg/dL (8.4-10.2)
[2020-06-19] MEDS ORDERED: SODIUM CHLORIDE 0.45% 1000 ML IV SOLN IV SCH ×2 (02:00→02:08)
[2020-06-19] MEDS ORDERED: SODIUM CHLORIDE 0.45% 1000 ML 1,000 ML IV SCH (03:00)
[2020-06-19] MEDS: INSULIN LISPRO 100 UNIT/ML VIAL 3 mL SUB-Q SCH ×4 (04:38→22:37)
[2020-06-19] MEDS: FREE WATER PO SCH ×4 (10:00→22:00)
[2020-06-19] MEDS ORDERED: LACTATED RINGERS 1,000 ML IV SCH (12:15)
[2020-06-19] MEDS ORDERED: SODIUM BICARBONATE 150 MEQ in DEXTROSE 5% IN WATER 1,000 ML IV SCH (13:00)
[2020-06-19] MEDS: FAMOTIDINE 20 MG TAB PO SCH (13:29)
[2020-06-19] MEDS: HEPARIN 5,000 UNIT/1 ML VIAL SUB-Q SCH ×2 (13:29→22:00)
[2020-06-19] MEDS ORDERED: DEXTROSE 50% IN WATER (25GM) 50 ML SYRINGE IV PRN (15:28)
--- NOTE | 2020-06-19 18:46 | Progress Note ---
Assessment and Plan Diabetic ketoacidosis. Acute toxic metabolic encephalopathy. Severe sepsis at presentation. Leukocytosis, presumably stress leukocytosis. Hypernatremia. Rhabdomyolysis. Acute kidney injury - nephrology evaluation opngoing - gentle hydration while monitoring electrolytes - supplemental oxygen to keep O2 sats > 90% - prn Bronchodilators (INÉS) with pulm hygiene per RT - continue to avoid nephrotoxins, renally dose all medications - mobility protocols to prevent pressure ulcers - PT/OT as tolerated - prn analgesia per pain score - continue accuchecks with glycemic control per SSI for target blood glucose < 180 mg/dL - GI & VTE prophylaxis - Flu & pneumovax per protocol - continue other care per attending / other consultants ... re-evaluate in am & prn Subjective Date of service: 06/19/20 Principal diagnosis: DKA; Ac encephalopathy; Severe sepsis; Rhabdomyolysis; YUNI. Interval history: Patient is seen today for: Diabetic ketoacidosis; Acute toxic metabolic encephalopathy; Severe sepsis; Rhabdomyolysis; Acute kidney injury Seen and examined at bedside; 24hour events reviewed; nursing and respiratory care staff consulted; no adverse overnight events reported to me; resting in bed; of IV insulin; remains NPO; YUNI is persistent and worse since admission; No N/V/F/C/chest pains or SOB Objective Vital Signs - 12hr 06/19/20 06/19/20 06/19/20 07:01 08:01 08:38 Temperature 98.5 F Pulse Rate 122 H Respiratory 22 Rate Blood Pressure 127/86 127/86 Blood Pressure 135/85 [Left] O2 Sat by Pulse 100 100 100 Oximetry 06/19/20 06/19/20 06/19/20 08:40 09:01 10:00 Temperature Pulse Rate 124 H Respiratory 30 H 25 H Rate Blood Pressure 131/93 134/83 Blood Pressure [Left] O2 Sat by Pulse 100 98 99 Oximetry 06/19/20 06/19/20 06/19/20 11:00 12:01 13:00 Temperature Pulse Rate Respiratory 30 H 25 H Rate Blood Pressure 135/80 134/87 138/90 Blood Pressure [Left] O2 Sat by Pulse 100 100 95 Oximetry 06/19/20 06/19/20 06/19/20 14:00 15:00 15:19 Temperature 98.9 F Pulse Rate 117 H Respiratory 16 Rate Blood Pressure 137/86 156/101 Blood Pressure 156/101 [Left] O2 Sat by Pulse 94 96 98 Oximetry Constitutional: no acute distress, other (middle aged male with normal respiratory effort at rest) Eyes: non-icteric ENT: oropharynx moist Neck: supple, no lymphadenopathy, no JVD Effort: normal Ascultation: Bilateral: clear Percussion: Bilateral: not dull Cardiovascular: regular rate and rhythm Gastrointestinal: normoactive bowel sounds, soft, non-tender, non-distended Integumentary: rash (xeroderma) Extremities: no cyanosis, no edema, pulses normal, no ischemia or petechiae Neurologic: non-focal exam, pupils equal and round, CN II-XII normal, motor stre ngth normal and Psychiatric: mood appropriate, affect normal CBC and BMP: 06/20/20 14:47 06/20/20 14:47 ABG, PT/INR, D-dimer: PT/INR, D-dimer PT 22.1 Sec. (12.2-14.9) H 06/17/20 11:24 INR 1.92 (0.87-1.13) H 06/17/20 11:24 Abnormal lab findings: Abnormal Labs 06/17/20 06/17/20 06/17/20 11:24 11:24 11:24 WBC 14.7 H RBC 5.38 H Hct 49.1 H MCH 27 L MCHC 29 L Lymph % (Auto) 9.9 L Seg Neutrophils % 86.8 H Seg Neutrophils # 12.8 H PT 22.1 H INR 1.92 H APTT 38.9 H VBG pH Sodium 149 H Potassium Chloride Carbon Dioxide BUN 84 H Creatinine 3.6 H Glucose 1394 H* POC Glucose Lactic Acid Calcium Phosphorus Magnesium AST 59 H Total Creatine Kinase 5507 H CK-MB (CK-2) 7.9 H Total Protein 9.0 H Albumin 3.7 L Free T4 Urine WBC (Auto) 06/17/20 06/17/20 06/17/20 11:24 11:24 11:24 WBC RBC Hct MCH MCHC Lymph % (Auto) Seg Neutrophils % Seg Neutrophils # PT INR APTT VBG pH 7.123 L* Sodium Potassium Chloride Carbon Dioxide BUN Creatinine Glucose POC Glucose Lactic Acid Calcium Phosphorus Magnesium 6.20 H AST Total Creatine Kinase CK-MB (CK-2) Total Protein Albumin Free T4 1.65 H Urine WBC (Auto) 06/17/20 06/17/20 06/17/20 15:27 15:33 15:33 WBC RBC Hct MCH MCHC Lymph % (Auto) Seg Neutrophils % Seg Neutrophils # PT INR APTT VBG pH Sodium Potassium Chloride Carbon Dioxide BUN Creatinine Glucose 1086 H* POC Glucose > 600 H Lactic Acid Calcium Phosphorus 9.40 H Magnesium 4.50 H AST Total Creatine Kinase CK-MB (CK-2) Total Protein Albumin Free T4 Urine WBC (Auto) 06/17/20 06/17/20 06/17/20 16:58 18:39 18:41 WBC RBC Hct MCH MCHC Lymph % (Auto) Seg Neutrophils % Seg Neutrophils # PT INR APTT VBG pH Sodium 155 H 154 H Potassium 3.0 L D 2.8 L* Chloride 114.0 H 117.3 H Carbon Dioxide 20 L 19 L BUN 83 H 84 H Creatinine 3.2 H 3.3 H Glucose 1046 H* 830 H* POC Glucose > 600 H Lactic Acid Calcium 7.8 L D 7.9 L Phosphorus Magnesium AST Total Creatine Kinase CK-MB (CK-2) Total Protein Albumin Free T4 Urine WBC (Auto) 06/17/20 06/17/20 06/17/20 21:15 21:15 Unknown WBC RBC Hct MCH MCHC Lymph % (Auto) Seg Neutrophils % Seg Neutrophils # PT INR APTT VBG pH Sodium 157 H Potassium 2.9 L* Chloride 118.8 H Carbon Dioxide 19 L BUN 84 H Creatinine 3.3 H Glucose 666 H* POC Glucose Lactic Acid 2.80 H* Calcium 7.8 L Phosphorus Magnesium AST Total Creatine Kinase CK-MB (CK-2) Total Protein Albumin Free T4 Urine WBC (Auto) 7.0 H 06/18/20 06/18/20 06/18/20 00:10 00:20 03:20 WBC RBC Hct MCH MCHC Lymph % (Auto) Seg Neutrophils % Seg Neutrophils # PT INR APTT VBG pH Sodium 160 H Potassium 3.0 L Chloride 118.8 H Carbon Dioxide BUN 89 H Creatinine 3.8 H Glucose 650 H* POC Glucose 291 H Lactic Acid 2.40 H* Calcium 7.8 L Phosphorus Magnesium AST Total Creatine Kinase CK-MB (CK-2) Total Protein Albumin Free T4 Urine WBC (Auto) 06/18/20 06/18/20 06/18/20 05:19 06:27 06:27 WBC RBC Hct MCH MCHC Lymph % (Auto) Seg Neutrophils % Seg Neutrophils # PT INR APTT VBG pH Sodium 167 H* Potassium 3.4 L Chloride 126.4 H Carbon Dioxide 21 L BUN 99 H Creatinine 4.5 H Glucose 291 H POC Glucose 276 H Lactic Acid 2.80 H* Calcium 8.1 L Phosphorus Magnesium AST Total Creatine Kinase CK-MB (CK-2) Total Protein Albumin Free T4 Urine WBC (Auto) 06/18/20 06/18/20 06/18/20 06:45 08:40 08:49 WBC RBC Hct MCH MCHC Lymph % (Auto) Seg Neutrophils % Seg Neutrophils # PT INR APTT VBG pH Sodium Potassium Chloride Carbon Dioxide BUN Creatinine Glucose POC Glucose 215 H 182 H Lactic Acid 2.20 H* Calcium Phosphorus Magnesium AST Total Creatine Kinase CK-MB (CK-2) Total Protein Albumin Free T4 Urine WBC (Auto) 06/18/20 06/18/20 06/18/20 10:01 10:28 11:40 WBC RBC Hct MCH MCHC Lymph % (Auto) Seg Neutrophils % Seg Neutrophils # PT INR APTT VBG pH Sodium 161 H* Potassium Chloride 125.4 H Carbon Dioxide 21 L BUN 98 H Creatinine 5.0 H Glucose 247 H POC Glucose 217 H Lactic Acid 3.20 H* Calcium 7.8 L Phosphorus Magnesium AST Total Creatine Kinase CK-MB (CK-2) Total Protein Albumin Free T4 Urine WBC (Auto) 06/18/20 06/18/20 06/18/20 11:40 11:40 12:33 WBC RBC Hct MCH MCHC Lymph % (Auto) Seg Neutrophils % Seg Neutrophils # PT INR APTT VBG pH Sodium Potassium Chloride Carbon Dioxide BUN Creatinine Glucose POC Glucose 199 H Lactic Acid 2.40 H* Calcium Phosphorus Magnesium AST Total Creatine Kinase 56631 H CK-MB (CK-2) Total Protein Albumin Free T4 Urine WBC (Auto) 06/18/20 06/18/20 06/18/20 13:57 16:27 21:58 WBC RBC Hct MCH MCHC Lymph % (Auto) Seg Neutrophils % Seg Neutrophils # PT INR APTT VBG pH Sodium Potassium Chloride Carbon Dioxide BUN Creatinine Glucose POC Glucose 198 H 185 H 281 H Lactic Acid Calcium Phosphorus Magnesium AST Total Creatine Kinase CK-MB (CK-2) Total Protein Albumin Free T4 Urine WBC (Auto) 06/19/20 06/19/20 06/19/20 00:55 00:55 04:25 WBC RBC Hct MCH MCHC Lymph % (Auto) Seg Neutrophils % Seg Neutrophils # PT INR APTT VBG pH Sodium 164 H* Potassium Chloride 125.8 H Carbon Dioxide 21 L BUN 100 H Creatinine 6.4 H Glucose 370 H POC Glucose 366 H Lactic Acid 2.30 H* Calcium 7.4 L Phosphorus Magnesium AST Total Creatine Kinase CK-MB (CK-2) Total Protein Albumin Free T4 Urine WBC (Auto) 06/19/20 06/19/20 06/19/20 11:49 14:24 15:44 WBC RBC Hct MCH MCHC Lymph % (Auto) Seg Neutrophils % Seg Neutrophils # PT INR APTT VBG pH Sodium Potassium Chloride Carbon Dioxide BUN Creatinine Glucose POC Glucose 411 H Lactic Acid 2.90 H* Calcium Phosphorus Magnesium AST Total Creatine Kinase 63765 H CK-MB (CK-2) Total Protein Albumin Free T4 Urine WBC (Auto) Allied health notes reviewed: nursing
[2020-06-19] MEDS: LACTATED RINGERS IV SCH (20:28)
--- NOTE | 2020-06-19 21:15 | Consultation ---
History of Present Illness - Reason for Consult Consult date: 06/19/20 acute renal failure, hypernatremia - History of Present Illness This a 44-year-old man with no known past medical history who was brought in by EMS. ER was informed that patient was found down by his neighbors outside his [place]. Upon presentation to the emergency department he was noted to be hypothermic with temperature 96 F, hypotensive, septic and encephalopathic. He was subsequently admitted for further management. His renal function continued to decline during the hospital stay and nephrology was consulted for further management. Patient was confused during my visit and was unable to provide detailed history which was subsequently obtained from the chart. Vitals reviewed. Input/output reviewed. Labs reviewed. Events since hospitalizations reviewed. Consult notes reviewed. Patient examined at bedside. Total critical care time 33 minutes. Past History Past Medical History: other (Unknown, unable to obtain) Past Surgical History: Other (Unable to obtain) Social history: single, other (Unable to obtain) Family history: other (Unable to obtain) Medications and Allergies Allergies Allergy/AdvReac Type Severity Reaction Status Date / Time Unable to Assess Allergy Unverified 06/17/20 12:54 Active Meds: Active Medications Acetaminophen (Acetaminophen 325 Mg Tab) 650 mg PO Q6H PRN PRN Reason: Pain, Mild (1-3) Albuterol (Albuterol 2.5 Mg/3 Ml Nebu) 2.5 mg IH Q3HRT PRN PRN Reason: Shortness Of Breath Dextrose (Dextrose 50% In Water (25gm) 50 Ml Syringe) 50 ml IV Q30MIN PRN; Protocol PRN Reason: Hypoglycemia Famotidine (Famotidine 20 Mg Tab) 20 mg PO QDAY [facility] Last Admin: 06/19/20 13:29 Dose: Not Given Documented by: Heparin Sodium (Porcine) (Heparin 5,000 Unit/1 Ml Vial) 5,000 unit SUB-Q Q12HR JERMAINE Last Admin: 06/19/20 13:29 Dose: 5,000 unit Documented by: Hydromorphone HCl (Hydromorphone 1 Mg/1 Ml Inj) 0.25 mg IV Q4H PRN PRN Reason: Pain, Moderate (4-6) Levofloxacin/Dextrose (Levaquin 750mg/150ml) 750 mg in 150 mls @ 100 mls/hr IV Q48H JERMAINE; Protocol Last Admin: 06/19/20 15:01 Dose: 100 mls/hr Documented by: Lactated Ringer's (Lactated Ringers) 5,000 mls @ 250 mls/hr IV DIRECT JERMAINE Last Admin: 06/19/20 20:28 Dose: 250 mls/hr Documented by: Insulin Human Lispro (Insulin Lispro 100 Unit/Ml Vial 3 Ml) 0 unit SUB-Q Q6H [facility]; Protocol Last Admin: 06/19/20 18:49 Dose: 10 unit Documented by: Sodium Chloride (Sodium Chloride 0.9% 10 Ml Flush Syringe) 10 ml IV BID JERMAINE Last Admin: 06/19/20 13:29 Dose: 10 ml Documented by: Sodium Chloride (Sodium Chloride 0.9% 10 Ml Flush Syringe) 10 ml IV PRN PRN PRN Reason: LINE FLUSH Review of Systems ROS unobtainable: due to mental status Exam - Vital Signs Vital signs: Vital Signs Temp Pulse Resp BP Pulse Ox 97.0 F L 68 22 96/56 100 06/17/20 10:20 06/17/20 10:20 06/17/20 10:20 06/17/20 10:20 06/17/20 10:20 - Physical Exam Narrative exam: Constitutional: No acute distress Head: Normocephalic/atraumatic Neck: Supple Lungs: Clear to auscultation bilaterally Cardiovascular: RRR, no M/R/G Abdomen: Soft, nontender, NABS Back, nontender Extremities: No edema, pulses within normal limits Skin: Intact, no rash Neuro: Alert and oriented only to self and time Results - Lab Results 06/17/20 11:24 06/19/20 00:55 Most recent lab results Calcium 7.4 mg/dL (8.4-10.2) L 06/19/20 00:55 Phosphorus 9.40 mg/dL (2.5-4.5) H 06/17/20 15:33 Magnesium 4.50 mg/dL (1.7-2.3) H 06/17/20 15:33 Assessment and Plan Assessment * Severe hypernatremia * Acute kidney injury * Rhabdomyolysis * Acidosis * Acute encephalopathy * Sepsis * DKA Recommendations * Stop IV bicarb fluids * Start Ringer's lactate at 250 cc/h * Place Jose, domitila I's/O * Check CPK daily * Check renal ultrasound * Check UDS * No immediate need for HD but if no improvement noted or decline in clinical status noted, will need to start renal replacement therapy * Please notify if any change in clinical status noted * DKA protocol per primary * Renally dose medications * Avoid nephrotoxins
[2020-06-19 23:33] LABS: Amphetamine Screen,Urine PRESUMPTIVE NEGATIVE; Benzodiazepines Screen,Urine PRESUMPTIVE NEGATIVE; Cannabinoid Screen,Urine PRESUMPTIVE NEGATIVE; Cocaine Screen,Urine PRESUMPTIVE NEGATIVE; Methadone Screen,Urine PRESUMPTIVE NEGATIVE; Opiate Screen,Urine PRESUMPTIVE NEGATIVE
[2020-06-20] MEDS: FREE WATER PO SCH ×6 (02:00→22:00)
[2020-06-20] MEDS: LACTATED RINGERS IV SCH ×3 (04:03→14:02)
[2020-06-20] MEDS: INSULIN LISPRO 100 UNIT/ML VIAL 3 mL SUB-Q SCH ×4 (04:47→22:10)
[2020-06-20] MEDS: FAMOTIDINE 20 MG TAB PO SCH (11:13)
[2020-06-20] MEDS: HEPARIN 5,000 UNIT/1 ML VIAL SUB-Q SCH ×2 (11:13→22:00)
[2020-06-20 15:20] LABS: Hemoglobin 10.2 gm/dl (11.8-15.2); Mean Corpuscular HGB Conc 32 % (32-34); Mean Corpuscular Volume 85 fl (84-94); Platelet Count 199 K/mm3 (140-440); Red Blood Count 3.78 M/mm3 (3.65-5.03)
[2020-06-20 15:33] LABS: Albumin 2.3 g/dL (3.9-5); Calcium 7.7 mg/dL (8.4-10.2)
[2020-06-20 15:59] LABS: Total Cells Counted 100
[2020-06-20 16:00] LABS: RBC Morphology Normal
--- NOTE | 2020-06-20 18:14 | Progress Note ---
Assessment and Plan - Patient Problems (1) Sepsis Current Visit: Yes Status: Acute Plan to address problem: Sepsis protocol: CBC, CMP, chest x-ray, urinalysis, IV fluid resuscitation therapy, IV antibiotic therapy, serial lactic acid, blood culture, monitor urine output every shift, monitor fluid balance, maintain mean arterial pressure greater than or equal to 65, The high probability of a clinically significant, sudden or life threatening deterioration of the [cardiac, neuro, pulmonary, renal, endocrine] system(s) required my full and direct attention, intervention and personal management. The aggregate critical care time was [65] minutes. This time is in addition to time spent performing reported procedures but includes the following: [x] Data Review and interpretation [x] Patient assessment and monitoring of vital signs [x] Documentation [x] Medication orders and management (2) Toxic metabolic encephalopathy Current Visit: Yes Status: Acute Plan to address problem: CT head without contrast reviewed, neuro check, seizure precautions, aspiration precautions (3) Rhabdomyolysis Current Visit: Yes Status: Acute Qualifiers: Encounter type: initial encounter Plan to address problem: IV fluid resuscitation therapy with lactated Ringer's, nephrology team consulted, supportive care, increase free water intake, repeat CK level. (4) YUNI (acute kidney injury) Current Visit: Yes Status: Acute Plan to address problem: IV fluid resuscitation therapy, BMP, repeat BMP in a.m. to monitor serum GFR as well as serum creatinine. (5) DKA (diabetic ketoacidoses) Current Visit: Yes Status: Acute Qualifiers: Diabetes mellitus complication detail: with coma Plan to address problem: DKA resolved, sliding-scale insulin therapy, Accu-Chek, hypoglycemia protocol (6) Rhabdomyolysis Current Visit: Yes Status: Acute Qualifiers: Encounter type: initial encounter Plan to address problem: IV fluid resuscitation therapy, monitor urine output every shift, CK level improving today. Repeat CK in a.m. (7) DVT prophylaxis Current Visit: Yes Status: Acute Plan to address problem: SCD to bilateral lower extremities while in bed, prophylactic anticoagulation History Interval history: 44 YO Male HD #3 with Sepsis, DKA, Toxic Metabolic Encephalopathy, YUNI, Rhabdomyolysis, Hypothermia. Patient status mildly improved today. Patient is more alert and responsive. Patient DKA has resolved. DKA protocol has been discontinued. Patient remains critically ill. We will continue current care plan. Was encourage oral free water intake as tolerated. No reported nursing events. Hospitalist Physical - Constitutional Vitals: Temp Pulse Resp BP Pulse Ox 98.6 F 111 H 22 137/96 95 06/20/20 08:07 06/20/20 17:00 06/20/20 17:00 06/20/20 17:00 06/20/20 17:00 General appearance: Present: severe distress - EENT Eyes: Present: PERRL ENT: hearing intact - Neck Neck: Present: supple - Respiratory Respiratory effort: normal Respiratory: bilateral: CTA - Cardiovascular Rhythm: regular Heart Sounds: Present: S1 & S2 - Extremities Extremities: no ischemia Peripheral Pulses: within normal limits - Abdominal General gastrointestinal: soft, non-tender, non-distended - Integumentary Integumentary: Present: clear, dry - Psychiatric Psychiatric: no intact judgment & insight, cooperative - Neurologic Neurologic: CNII-XII intact, no focal deficits, moves all extremities, no gait normal HEART Score - HEART Score Troponin: Troponin T < 0.010 ng/mL (0.00-0.029) 06/17/20 11:24 Results - Labs CBC & Chem 7: 06/20/20 14:47 06/20/20 14:47 Labs: Laboratory Last Values WBC 15.1 K/mm3 (4.5-11.0) H 06/20/20 14:47 RBC 3.78 M/mm3 (3.65-5.03) 06/20/20 14:47 Hgb 10.2 gm/dl (11.8-15.2) L 06/20/20 14:47 Hct 32.0 % (35.5-45.6) L 06/20/20 14:47 MCV 85 fl (84-94) 06/20/20 14:47 MCH 27 pg (28-32) L 06/20/20 14:47 MCHC 32 % (32-34) 06/20/20 14:47 RDW 14.0 % (13.2-15.2) 06/20/20 14:47 Plt Count 199 K/mm3 (140-440) 06/20/20 14:47 Lymph % (Auto) 9.9 % (13.4-35.0) L 06/17/20 11:24 [place] % (Auto) 2.8 % (0.0-7.3) 06/17/20 11:24 Eos % (Auto) 0.0 % (0.0-4.3) 06/17/20 11:24 Baso % (Auto) 0.5 % (0.0-1.8) 06/17/20 11:24 Lymph # (Auto) 1.5 K/mm3 (1.2-5.4) 06/17/20 11:24 [place] # (Auto) 0.4 K/mm3 (0.0-0.8) 06/17/20 11:24 Eos # (Auto) 0.0 K/mm3 (0.0-0.4) 06/17/20 11:24 Baso # (Auto) 0.1 K/mm3 (0.0-0.1) 06/17/20 11:24 Add Manual Diff Complete 06/20/20 14:47 Total Counted 100 06/20/20 14:47 Seg Neutrophils % 86.8 % (40.0-70.0) H 06/17/20 11:24 Seg Neuts % (Manual) 79.0 % (40.0-70.0) H 06/20/20 14:47 Lymphocytes % (Manual) 12.0 % (13.4-35.0) L 06/20/20 14:47 Monocytes % (Manual) 7.0 % (0.0-7.3) 06/20/20 14:47 Eosinophils % (Manual) 1.0 % (0.0-4.3) 06/20/20 14:47 Basophils % (Manual) 1.0 % (0.0-1.8) 06/20/20 14:47 Nucleated RBC % Not Reportable 06/20/20 14:47 Seg Neutrophils # 12.8 K/mm3 (1.8-7.7) H 06/17/20 11:24 Seg Neutrophils # Man 11.9 K/mm3 (1.8-7.7) H 06/20/20 14:47 Band Neutrophils # 0.0 K/mm3 06/20/20 14:47 Lymphocytes # (Manual) 1.8 K/mm3 (1.2-5.4) 06/20/20 14:47 Abs React Lymphs (Man) 0.0 K/mm3 06/20/20 14:47 Monocytes # (Manual) 1.1 K/mm3 (0.0-0.8) H 06/20/20 14:47 Eosinophils # (Manual) 0.2 K/mm3 (0.0-0.4) 06/20/20 14:47 Basophils # (Manual) 0.2 K/mm3 (0.0-0.1) H 06/20/20 14:47 Metamyelocytes # 0.0 K/mm3 06/20/20 14:47 Myelocytes # 0.0 K/mm3 06/20/20 14:47 Promyelocytes # 0.0 K/mm3 06/20/20 14:47 Blast Cells # 0.0 K/mm3 06/20/20 14:47 WBC Morphology Not Reportable 06/20/20 14:47 Hypersegmented Neuts Not Reportable 06/20/20 14:47 Hyposegmented Neuts Not Reportable 06/20/20 14:47 Hypogranular Neuts Not Reportable 06/20/20 14:47 Smudge Cells Not Reportable 06/20/20 14:47 Toxic Granulation Not Reportable 06/20/20 14:47 Toxic Vacuolation Not Reportable 06/20/20 14:47 Dohle Bodies Not Reportable 06/20/20 14:47 Pelger-Huet Anomaly Not Reportable 06/20/20 14:47 Seth Rods Not Reportable 06/20/20 14:47 Platelet Estimate Not Reportable 06/20/20 14:47 Clumped Platelets Not Reportable 06/20/20 14:47 Plt Clumps, EDTA Not Reportable 06/20/20 14:47 Large Platelets Not Reportable 06/20/20 14:47 Giant Platelets Not Reportable 06/20/20 14:47 Platelet Satelliting Not Reportable 06/20/20 14:47 Plt Morphology Comment Not Reportable 06/20/20 14:47 RBC Morphology Normal 06/20/20 14:47 Dimorphic RBCs Not Reportable 06/20/20 14:47 Polychromasia Not Reportable 06/20/20 14:47 Hypochromasia Not Reportable 06/20/20 14:47 Poikilocytosis Not Reportable 06/20/20 14:47 Anisocytosis Not Reportable 06/20/20 14:47 Microcytosis Not Reportable 06/20/20 14:47 Macrocytosis Not Reportable 06/20/20 14:47 Spherocytes Not Reportable 06/20/20 14:47 Pappenheimer Bodies Not Reportable 06/20/20 14:47 Sickle Cells Not Reportable 06/20/20 14:47 Target Cells Not Reportable 06/20/20 14:47 Tear Drop Cells Not Reportable 06/20/20 14:47 Ovalocytes Not Reportable 06/20/20 14:47 Helmet Cells Not Reportable 06/20/20 14:47 Yo-[place] Bodies Not Reportable 06/20/20 14:47 [place] Rings Not Reportable 06/20/20 14:47 Jc Cells Not Reportable 06/20/20 14:47 Bite Cells Not Reportable 06/20/20 14:47 Crenated Cell Not Reportable 06/20/20 14:47 Elliptocytes Not Reportable 06/20/20 14:47 Acanthocytes (Spur) Not Reportable 06/20/20 14:47 Rouleaux Not Reportable 06/20/20 14:47 Hemoglobin C Crystals Not Reportable 06/20/20 14:47 Schistocytes Not Reportable 06/20/20 14:47 Malaria parasites Not Reportable 06/20/20 14:47 Mick Bodies Not Reportable 06/20/20 14:47 Hem Pathologist Commnt No 06/20/20 14:47 PT 22.1 Sec. (12.2-14.9) H 06/17/20 11:24 INR 1.92 (0.87-1.13) H 06/17/20 11:24 APTT 38.9 Sec. (24.2-36.6) H 06/17/20 11:24 VBG pH 7.123 (7.320-7.420) L* 06/17/20 11:24 Sodium 156 mmol/L (137-145) H 06/20/20 14:47 Potassium 5.9 mmol/L (3.6-5.0) H D 06/20/20 14:47 Chloride 118.3 mmol/L (98-107) H 06/20/20 14:47 Carbon Dioxide 20 mmol/L (22-30) L 06/20/20 14:47 Anion Gap 24 mmol/L 06/20/20 14:47 BUN 159 mg/dL (9-20) H 06/20/20 14:47 Creatinine 9.4 mg/dL (0.8-1.3) H 06/20/20 14:47 Estimated GFR 7 ml/min 06/20/20 14:47 BUN/Creatinine Ratio 17 % 06/20/20 14:47 Glucose 283 mg/dL (75-100) H 06/20/20 14:47 POC Glucose 248 mg/dL (70-105) H 06/20/20 17:02 Lactic Acid 1.40 mmol/L (0.7-2.0) 06/20/20 05:08 Calcium 7.7 mg/dL (8.4-10.2) L 06/20/20 14:47 Phosphorus 9.40 mg/dL (2.5-4.5) H 06/17/20 15:33 Magnesium 4.50 mg/dL (1.7-2.3) H 06/17/20 15:33 Total Bilirubin 0.60 mg/dL (0.1-1.2) 06/20/20 14:47 AST 149 units/L (5-40) H 06/20/20 14:47 ALT 89 units/L (7-56) H 06/20/20 14:47 Alkaline Phosphatase 60 units/L (35-129) 06/20/20 14:47 Ammonia 56.0 umol/L (25-60) 06/17/20 11:24 Total Creatine Kinase 54562 units/L (55-170) H 06/20/20 05:08 CK-MB (CK-2) 7.9 ng/mL (0.0-4.0) H 06/17/20 11:24 CK-MB (CK-2) Rel Index 0.1 (0-4) 06/17/20 11:24 Troponin T < 0.010 ng/mL (0.00-0.029) 06/17/20 11:24 Total Protein 5.9 g/dL (6.3-8.2) L D 06/20/20 14:47 Albumin 2.3 g/dL (3.9-5) L 06/20/20 14:47 Albumin/Globulin Ratio 0.6 % 06/20/20 14:47 Procalcitonin 8.18 ng/mL (<0.15) 06/18/20 21:36 TSH 0.914 mlU/mL (0.270-4.200) 06/17/20 11:24 Free T4 1.65 ng/dL (0.76-1.46) H 06/17/20 11:24 Urine Color Yellow (Yellow) 06/17/20 Unknown Urine Turbidity Slightly-cloudy (Clear) 06/17/20 Unknown Urine pH 5.0 (5.0-7.0) 06/17/20 Unknown Ur Specific [place] 1.022 (1.003-1.030) 06/17/20 Unknown Urine Protein 100 mg/dl mg/dL (Negative) 06/17/20 Unknown Urine Glucose (UA) >=500 mg/dL (Negative) 06/17/20 Unknown Urine Ketones Neg mg/dL (Negative) 06/17/20 Unknown Urine Blood Lg (Negative) 06/17/20 Unknown Urine Nitrite Neg (Negative) 06/17/20 Unknown Urine Bilirubin Neg (Negative) 06/17/20 Unknown Urine Urobilinogen < 2.0 mg/dL (<2.0) 06/17/20 Unknown Ur Leukocyte Esterase Neg (Negative) 06/17/20 Unknown Urine WBC (Auto) 7.0 /HPF (0.0-6.0) H 06/17/20 Unknown Urine RBC (Auto) 5.0 /HPF (0.0-6.0) 06/17/20 Unknown U Epithel Cells (Auto) < 1.0 /HPF (0-13.0) 06/17/20 Unknown Urine Mucus Few /HPF 06/17/20 Unknown Urine Opiates Screen Presumptive negative 06/19/20 19:00 Urine Methadone Screen Presumptive negative 06/19/20 19:00 Ur Barbiturates Screen Presumptive negative 06/19/20 19:00 Ur Phencyclidine Scrn Presumptive negative 06/19/20 19:00 Ur Amphetamines Screen Presumptive negative 06/19/20 19:00 U Benzodiazepines Scrn Presumptive negative 06/19/20 19:00 Urine Cocaine Screen Presumptive negative 06/19/20 19:00 U Marijuana (THC) Screen Presumptive negative 06/19/20 19:00 Drugs of Abuse Note Disclamer 06/19/20 19:00 Plasma/Serum Alcohol < 0.01 % (0-0.07) 06/17/20 11:24 Blood Type B POSITIVE 06/17/20 15:40 Antibody Screen Negative 06/17/20 15:40 Microbiology: Microbiology 06/17/20 15:33 Peripheral/Venous Blood Culture - Preliminary NO GROWTH AFTER 72 HOURS 06/17/20 15:33 Peripheral/Venous Blood Culture - Preliminary NO GROWTH AFTER 72 HOURS Garcia/IV: IV Catheter Type [Left Hand] Peripheral IV IV Catheter Type [Right INT / Saline Lock Antecubital] Active Medications - Current Medications Current Medications: Generic Name Dose Route Start Last Admin Trade Name Freq PRN Reason Stop Dose Admin Acetaminophen 650 mg 06/17/20 13:40 Acetaminophen 325 Mg Tab PO Q6H PRN Pain, Mild (1-3) Albuterol 2.5 mg 06/17/20 13:40 Albuterol 2.5 Mg/3 Ml Nebu IH Q3HRT PRN Shortness Of Breath Dextrose 50 ml 06/19/20 15:28 Dextrose 50% In Water (25gm) 50 Ml Syringe IV Q30MIN PRN Hypoglycemia Protocol Famotidine 20 mg 06/19/20 10:00 06/20/20 11:13 Famotidine 20 Mg Tab PO 20 mg QDAY JERMAINE Administration Heparin Sodium (Porcine) 5,000 unit 06/17/20 22:00 06/20/20 11:13 Heparin 5,000 Unit/1 Ml Vial SUB-Q 5,000 unit Q12HR JERMAINE Administration Hydromorphone HCl 0.25 mg 06/17/20 13:40 Hydromorphone 1 Mg/1 Ml Inj IV Q4H PRN Pain, Moderate (4-6) Lactated Ringer's 5,000 mls @ 250 mls/hr 06/19/20 15:26 06/20/20 14:02 Lactated Ringers IV 250 mls/hr DIRECT JERMAINE Administration Levofloxacin/Dextrose 500 mg in 100 mls @ 100 mls/hr 06/21/20 15:00 Levaquin 500mg/100ml IV Q48H JERMAINE Insulin Human Lispro 0 unit 06/18/20 16:00 06/20/20 17:09 Insulin Lispro 100 Unit/Ml Vial 3 Ml SUB-Q 6 unit Q6H JERMAINE Administration Protocol Sodium Chloride 10 ml 06/17/20 22:00 06/20/20 11:20 Sodium Chloride 0.9% 10 Ml Flush Syringe IV 10 ml BID JERMAINE Administration Sodium Chloride 10 ml 06/17/20 13:40 Sodium Chloride 0.9% 10 Ml Flush Syringe IV PRN PRN LINE FLUSH
--- NOTE | 2020-06-20 18:17 | Progress Note ---
Assessment and Plan - Patient Problems (1) Sepsis Current Visit: Yes Status: Acute Plan to address problem: Sepsis protocol: CBC, CMP, chest x-ray, urinalysis, IV fluid resuscitation therapy, IV antibiotic therapy, serial lactic acid, blood culture, monitor urine output every shift, monitor fluid balance, maintain mean arterial pressure greater than or equal to 65, The high probability of a clinically significant, sudden or life threatening deterioration of the [cardiac, neuro, pulmonary, renal, endocrine] system(s) required my full and direct attention, intervention and personal management. The aggregate critical care time was [65] minutes. This time is in addition to time spent performing reported procedures but includes the following: [x] Data Review and interpretation [x] Patient assessment and monitoring of vital signs [x] Documentation [x] Medication orders and management (2) Toxic metabolic encephalopathy Current Visit: Yes Status: Acute Plan to address problem: Improved, continue current care, (3) YUNI (acute kidney injury) Current Visit: Yes Status: Acute Plan to address problem: IV fluid resuscitation therapy, BMP, repeat BMP in a.m. to monitor serum GFR as well as serum creatinine. (4) DKA (diabetic ketoacidoses) Current Visit: Yes Status: Acute Qualifiers: Diabetes mellitus complication detail: with coma Plan to address problem: DKA resolved, sliding-scale insulin therapy, Accu-Chek, hypoglycemia protocol (5) Rhabdomyolysis Current Visit: Yes Status: Acute Qualifiers: Encounter type: initial encounter Plan to address problem: IV fluid resuscitation therapy, monitor urine output every shift, CK level improving today. Repeat CK in a.m. (6) DVT prophylaxis Current Visit: Yes Status: Acute Plan to address problem: SCD to bilateral lower extremities while in bed, prophylactic anticoagulation History Interval history: 44 YO Male HD #4 with Sepsis, resolved DKA, improved Toxic Metabolic Encephalopathy, YUNI, Rhabdomyolysis, Hypothermia. Patient status improved today. Patient is more alert and responsive. Was encourage oral free water intake as tolerated. No reported nursing events. Patient denies pain. Hospitalist Physical - Constitutional Vitals: Temp Pulse Resp BP Pulse Ox 98.6 F 111 H 22 137/96 95 06/20/20 08:07 06/20/20 17:00 06/20/20 17:00 06/20/20 17:00 06/20/20 17:00 General appearance: Present: severe distress - EENT Eyes: Present: PERRL, EOM intact ENT: hearing intact - Neck Neck: Present: supple - Respiratory Respiratory: bilateral: CTA - Cardiovascular Rhythm: regular Heart Sounds: Present: S1 & S2 - Extremities Extremities: no ischemia Peripheral Pulses: within normal limits - Abdominal General gastrointestinal: soft, non-tender, non-distended - Integumentary Integumentary: Present: clear, dry - Psychiatric Psychiatric: cooperative - Neurologic Neurologic: CNII-XII intact, no focal deficits, moves all extremities, no gait normal HEART Score - HEART Score Troponin: Troponin T < 0.010 ng/mL (0.00-0.029) 06/17/20 11:24 Results - Labs CBC & Chem 7: 06/20/20 14:47 06/20/20 14:47 Labs: Laboratory Last Values WBC 15.1 K/mm3 (4.5-11.0) H 06/20/20 14:47 RBC 3.78 M/mm3 (3.65-5.03) 06/20/20 14:47 Hgb 10.2 gm/dl (11.8-15.2) L 06/20/20 14:47 Hct 32.0 % (35.5-45.6) L 06/20/20 14:47 MCV 85 fl (84-94) 06/20/20 14:47 MCH 27 pg (28-32) L 06/20/20 14:47 MCHC 32 % (32-34) 06/20/20 14:47 RDW 14.0 % (13.2-15.2) 06/20/20 14:47 Plt Count 199 K/mm3 (140-440) 06/20/20 14:47 Lymph % (Auto) 9.9 % (13.4-35.0) L 06/17/20 11:24 [place] % (Auto) 2.8 % (0.0-7.3) 06/17/20 11:24 Eos % (Auto) 0.0 % (0.0-4.3) 06/17/20 11:24 Baso % (Auto) 0.5 % (0.0-1.8) 06/17/20 11:24 Lymph # (Auto) 1.5 K/mm3 (1.2-5.4) 06/17/20 11:24 [place] # (Auto) 0.4 K/mm3 (0.0-0.8) 06/17/20 11:24 Eos # (Auto) 0.0 K/mm3 (0.0-0.4) 06/17/20 11:24 Baso # (Auto) 0.1 K/mm3 (0.0-0.1) 06/17/20 11:24 Add Manual Diff Complete 06/20/20 14:47 Total Counted 100 06/20/20 14:47 Seg Neutrophils % 86.8 % (40.0-70.0) H 06/17/20 11:24 Seg Neuts % (Manual) 79.0 % (40.0-70.0) H 06/20/20 14:47 Lymphocytes % (Manual) 12.0 % (13.4-35.0) L 06/20/20 14:47 Monocytes % (Manual) 7.0 % (0.0-7.3) 06/20/20 14:47 Eosinophils % (Manual) 1.0 % (0.0-4.3) 06/20/20 14:47 Basophils % (Manual) 1.0 % (0.0-1.8) 06/20/20 14:47 Nucleated RBC % Not Reportable 06/20/20 14:47 Seg Neutrophils # 12.8 K/mm3 (1.8-7.7) H 06/17/20 11:24 Seg Neutrophils # Man 11.9 K/mm3 (1.8-7.7) H 06/20/20 14:47 Band Neutrophils # 0.0 K/mm3 06/20/20 14:47 Lymphocytes # (Manual) 1.8 K/mm3 (1.2-5.4) 06/20/20 14:47 Abs React Lymphs (Man) 0.0 K/mm3 06/20/20 14:47 Monocytes # (Manual) 1.1 K/mm3 (0.0-0.8) H 06/20/20 14:47 Eosinophils # (Manual) 0.2 K/mm3 (0.0-0.4) 06/20/20 14:47 Basophils # (Manual) 0.2 K/mm3 (0.0-0.1) H 06/20/20 14:47 Metamyelocytes # 0.0 K/mm3 06/20/20 14:47 Myelocytes # 0.0 K/mm3 06/20/20 14:47 Promyelocytes # 0.0 K/mm3 06/20/20 14:47 Blast Cells # 0.0 K/mm3 06/20/20 14:47 WBC Morphology Not Reportable 06/20/20 14:47 Hypersegmented Neuts Not Reportable 06/20/20 14:47 Hyposegmented Neuts Not Reportable 06/20/20 14:47 Hypogranular Neuts Not Reportable 06/20/20 14:47 Smudge Cells Not Reportable 06/20/20 14:47 Toxic Granulation Not Reportable 06/20/20 14:47 Toxic Vacuolation Not Reportable 06/20/20 14:47 Dohle Bodies Not Reportable 06/20/20 14:47 Pelger-Huet Anomaly Not Reportable 06/20/20 14:47 Seth Rods Not Reportable 06/20/20 14:47 Platelet Estimate Not Reportable 06/20/20 14:47 Clumped Platelets Not Reportable 06/20/20 14:47 Plt Clumps, EDTA Not Reportable 06/20/20 14:47 Large Platelets Not Reportable 06/20/20 14:47 Giant Platelets Not Reportable 06/20/20 14:47 Platelet Satelliting Not Reportable 06/20/20 14:47 Plt Morphology Comment Not Reportable 06/20/20 14:47 RBC Morphology Normal 06/20/20 14:47 Dimorphic RBCs Not Reportable 06/20/20 14:47 Polychromasia Not Reportable 06/20/20 14:47 Hypochromasia Not Reportable 06/20/20 14:47 Poikilocytosis Not Reportable 06/20/20 14:47 Anisocytosis Not Reportable 06/20/20 14:47 Microcytosis Not Reportable 06/20/20 14:47 Macrocytosis Not Reportable 06/20/20 14:47 Spherocytes Not Reportable 06/20/20 14:47 Pappenheimer Bodies Not Reportable 06/20/20 14:47 Sickle Cells Not Reportable 06/20/20 14:47 Target Cells Not Reportable 06/20/20 14:47 Tear Drop Cells Not Reportable 06/20/20 14:47 Ovalocytes Not Reportable 06/20/20 14:47 Helmet Cells Not Reportable 06/20/20 14:47 [place] Bodies Not Reportable 06/20/20 14:47 [place] Rings Not Reportable 06/20/20 14:47 [place] Cells Not Reportable 06/20/20 14:47 Bite Cells Not Reportable 06/20/20 14:47 Crenated Cell Not Reportable 06/20/20 14:47 Elliptocytes Not Reportable 06/20/20 14:47 Acanthocytes (Spur) Not Reportable 06/20/20 14:47 Rouleaux Not Reportable 06/20/20 14:47 Hemoglobin C Crystals Not Reportable 06/20/20 14:47 Schistocytes Not Reportable 06/20/20 14:47 Malaria parasites Not Reportable 06/20/20 14:47 Mick Bodies Not Reportable 06/20/20 14:47 Hem Pathologist Commnt No 06/20/20 14:47 PT 22.1 Sec. (12.2-14.9) H 06/17/20 11:24 INR 1.92 (0.87-1.13) H 06/17/20 11:24 APTT 38.9 Sec. (24.2-36.6) H 06/17/20 11:24 VBG pH 7.123 (7.320-7.420) L* 06/17/20 11:24 Sodium 156 mmol/L (137-145) H 06/20/20 14:47 Potassium 5.9 mmol/L (3.6-5.0) H D 06/20/20 14:47 Chloride 118.3 mmol/L (98-107) H 06/20/20 14:47 Carbon Dioxide 20 mmol/L (22-30) L 06/20/20 14:47 Anion Gap 24 mmol/L 06/20/20 14:47 BUN 159 mg/dL (9-20) H 06/20/20 14:47 Creatinine 9.4 mg/dL (0.8-1.3) H 06/20/20 14:47 Estimated GFR 7 ml/min 06/20/20 14:47 BUN/Creatinine Ratio 17 % 06/20/20 14:47 Glucose 283 mg/dL (75-100) H 06/20/20 14:47 POC Glucose 248 mg/dL (70-105) H 06/20/20 17:02 Lactic Acid 1.40 mmol/L (0.7-2.0) 06/20/20 05:08 Calcium 7.7 mg/dL (8.4-10.2) L 06/20/20 14:47 Phosphorus 9.40 mg/dL (2.5-4.5) H 06/17/20 15:33 Magnesium 4.50 mg/dL (1.7-2.3) H 06/17/20 15:33 Total Bilirubin 0.60 mg/dL (0.1-1.2) 06/20/20 14:47 AST 149 units/L (5-40) H 06/20/20 14:47 ALT 89 units/L (7-56) H 06/20/20 14:47 Alkaline Phosphatase 60 units/L (35-129) 06/20/20 14:47 Ammonia 56.0 umol/L (25-60) 06/17/20 11:24 Total Creatine Kinase 98323 units/L (55-170) H 06/20/20 05:08 CK-MB (CK-2) 7.9 ng/mL (0.0-4.0) H 06/17/20 11:24 CK-MB (CK-2) Rel Index 0.1 (0-4) 06/17/20 11:24 Troponin T < 0.010 ng/mL (0.00-0.029) 06/17/20 11:24 Total Protein 5.9 g/dL (6.3-8.2) L D 06/20/20 14:47 Albumin 2.3 g/dL (3.9-5) L 06/20/20 14:47 Albumin/Globulin Ratio 0.6 % 06/20/20 14:47 Procalcitonin 8.18 ng/mL (<0.15) 06/18/20 21:36 TSH 0.914 mlU/mL (0.270-4.200) 06/17/20 11:24 Free T4 1.65 ng/dL (0.76-1.46) H 06/17/20 11:24 Urine Color Yellow (Yellow) 06/17/20 Unknown Urine Turbidity Slightly-cloudy (Clear) 06/17/20 Unknown Urine pH 5.0 (5.0-7.0) 06/17/20 Unknown Ur Specific [place] 1.022 (1.003-1.030) 06/17/20 Unknown Urine Protein 100 mg/dl mg/dL (Negative) 06/17/20 Unknown Urine Glucose (UA) >=500 mg/dL (Negative) 06/17/20 Unknown Urine Ketones Neg mg/dL (Negative) 06/17/20 Unknown Urine Blood Lg (Negative) 06/17/20 Unknown Urine Nitrite Neg (Negative) 06/17/20 Unknown Urine Bilirubin Neg (Negative) 06/17/20 Unknown Urine Urobilinogen < 2.0 mg/dL (<2.0) 06/17/20 Unknown Ur Leukocyte Esterase Neg (Negative) 06/17/20 Unknown Urine WBC (Auto) 7.0 /HPF (0.0-6.0) H 06/17/20 Unknown Urine RBC (Auto) 5.0 /HPF (0.0-6.0) 06/17/20 Unknown U Epithel Cells (Auto) < 1.0 /HPF (0-13.0) 06/17/20 Unknown Urine Mucus Few /HPF 06/17/20 Unknown Urine Opiates Screen Presumptive negative 06/19/20 19:00 Urine Methadone Screen Presumptive negative 06/19/20 19:00 Ur Barbiturates Screen Presumptive negative 06/19/20 19:00 Ur Phencyclidine Scrn Presumptive negative 06/19/20 19:00 Ur Amphetamines Screen Presumptive negative 06/19/20 19:00 U Benzodiazepines Scrn Presumptive negative 06/19/20 19:00 Urine Cocaine Screen Presumptive negative 06/19/20 19:00 U Marijuana (THC) Screen Presumptive negative 06/19/20 19:00 Drugs of Abuse Note Disclamer 06/19/20 19:00 Plasma/Serum Alcohol < 0.01 % (0-0.07) 06/17/20 11:24 Blood Type B POSITIVE 06/17/20 15:40 Antibody Screen Negative 06/17/20 15:40 Microbiology: Microbiology 06/17/20 15:33 Peripheral/Venous Blood Culture - Preliminary NO GROWTH AFTER 72 HOURS 06/17/20 15:33 Peripheral/Venous Blood Culture - Preliminary NO GROWTH AFTER 72 HOURS Garcia/IV: IV Catheter Type [Left Hand] Peripheral IV IV Catheter Type [Right INT / Saline Lock Antecubital] Active Medications - Current Medications Current Medications: Generic Name Dose Route Start Last Admin Trade Name Freq PRN Reason Stop Dose Admin Acetaminophen 650 mg 06/17/20 13:40 Acetaminophen 325 Mg Tab PO Q6H PRN Pain, Mild (1-3) Albuterol 2.5 mg 06/17/20 13:40 Albuterol 2.5 Mg/3 Ml Nebu IH Q3HRT PRN Shortness Of Breath Dextrose 50 ml 06/19/20 15:28 Dextrose 50% In Water (25gm) 50 Ml Syringe IV Q30MIN PRN Hypoglycemia Protocol Famotidine 20 mg 06/19/20 10:00 06/20/20 11:13 Famotidine 20 Mg Tab PO 20 mg QDAY JERMAINE Administration Heparin Sodium (Porcine) 5,000 unit 06/17/20 22:00 06/20/20 11:13 Heparin 5,000 Unit/1 Ml Vial SUB-Q 5,000 unit Q12HR JERMAINE Administration Hydromorphone HCl 0.25 mg 06/17/20 13:40 Hydromorphone 1 Mg/1 Ml Inj IV Q4H PRN Pain, Moderate (4-6) Lactated Ringer's 5,000 mls @ 250 mls/hr 06/19/20 15:26 06/20/20 14:02 Lactated Ringers IV 250 mls/hr DIRECT JERMAINE Administration Levofloxacin/Dextrose 500 mg in 100 mls @ 100 mls/hr 06/21/20 15:00 Levaquin 500mg/100ml IV Q48H JERMAINE Insulin Human Lispro 0 unit 06/18/20 16:00 06/20/20 17:09 Insulin Lispro 100 Unit/Ml Vial 3 Ml SUB-Q 6 unit Q6H JERMAINE Administration Protocol Sodium Chloride 10 ml 06/17/20 22:00 06/20/20 11:20 Sodium Chloride 0.9% 10 Ml Flush Syringe IV 10 ml BID JERMAINE Administration Sodium Chloride 10 ml 06/17/20 13:40 Sodium Chloride 0.9% 10 Ml Flush Syringe IV PRN PRN LINE FLUSH
[2020-06-20] MEDS ORDERED: SODIUM CHLORIDE 0.9% 100 ML IV PRN (18:47)
--- NOTE | 2020-06-20 19:19 | Progress Note ---
Assessment and Plan Assessment * Acute kidney injury * Uremia * Severe hypernatremia * Hyperkalemia * Rhabdomyolysis, severe * Acidosis * Acute encephalopathy * Sepsis * DKA Recommendations * Plan for HD today following vasc-cath placement for clearance * Continue Ringer's lactate at 250 cc/h * S/p Garcia, strict I's/O * Trend CPK daily * Check ionized calcium and phosphorus * F/u renal ultrasound * UDS ordered but not collected * DKA protocol per primary * Renally dose medications * Avoid nephrotoxins Subjective Date of service: 06/20/20 Principal diagnosis: DKA; Ac encephalopathy; Severe sepsis; Rhabdomyolysis; YUNI. Interval history: Patient was seen for his renal issues Nursing, interdisciplinary and consult notes were reviewed Vitals, input and output, medications and labs were reviewed Tremulous Objective - Exam Narrative Exam: Constitutional: No acute distress Head: Normocephalic/atraumatic Neck: Supple Lungs: Clear to auscultation bilaterally Cardiovascular: RRR, no M/R/G Abdomen: Soft, nontender, NABS Back, nontender Extremities: No edema, pulses within normal limits Skin: Intact, no rash Neuro: Tremulous, oriented only to self and time - Vital Signs Vital signs: Vital Signs - 12hr 06/20/20 06/20/20 06/20/20 07:57 08:00 08:07 Temperature 98.6 F Pulse Rate 110 H 102 H Respiratory 20 20 22 Rate Blood Pressure 132/93 Blood Pressure 132/93 [Left] O2 Sat by Pulse 96 94 96 Oximetry 06/20/20 06/20/20 06/20/20 09:00 10:00 11:00 Temperature Pulse Rate 106 H 107 H 103 H Respiratory 26 H 20 21 Rate Blood Pressure 135/88 131/89 135/93 Blood Pressure [Left] O2 Sat by Pulse 93 95 95 Oximetry 06/20/20 06/20/20 06/20/20 12:00 13:00 14:00 Temperature Pulse Rate 110 H 112 H 112 H Respiratory 21 24 21 Rate Blood Pressure 130/87 139/91 136/93 Blood Pressure [Left] O2 Sat by Pulse 95 94 95 Oximetry 06/20/20 06/20/20 06/20/20 15:00 16:00 17:00 Temperature Pulse Rate 110 H 108 H 111 H Respiratory 20 25 H 22 Rate Blood Pressure 137/90 133/89 137/96 Blood Pressure [Left] O2 Sat by Pulse 95 94 95 Oximetry - Lab 06/20/20 14:47 06/20/20 14:47 Most recent lab results Calcium 7.7 mg/dL (8.4-10.2) L 06/20/20 14:47 Phosphorus 9.40 mg/dL (2.5-4.5) H 06/17/20 15:33 Magnesium 4.50 mg/dL (1.7-2.3) H 06/17/20 15:33 Medications & Allergies - Medications Allergies/Adverse Reactions: Allergies Unable to Assess Allergy (Unverified 06/17/20 12:54) Pt not verbal at this time Active Medications: Generic Name Dose Route Start Last Admin Trade Name Freq PRN Reason Stop Dose Admin Acetaminophen 650 mg 06/17/20 13:40 Acetaminophen 325 Mg Tab PO Q6H PRN Pain, Mild (1-3) Albuterol 2.5 mg 06/17/20 13:40 Albuterol 2.5 Mg/3 Ml Nebu IH Q3HRT PRN Shortness Of Breath Dextrose 50 ml 06/19/20 15:28 Dextrose 50% In Water (25gm) 50 Ml Syringe IV Q30MIN PRN Hypoglycemia Protocol Famotidine 20 mg 06/19/20 10:00 06/20/20 11:13 Famotidine 20 Mg Tab PO 20 mg QDAY JERMAINE Administration Heparin Sodium (Porcine) 5,000 unit 06/17/20 22:00 06/20/20 11:13 Heparin 5,000 Unit/1 Ml Vial SUB-Q 5,000 unit Q12HR JERMAINE Administration Hydromorphone HCl 0.25 mg 06/17/20 13:40 Hydromorphone 1 Mg/1 Ml Inj IV Q4H PRN Pain, Moderate (4-6) Lactated Ringer's 5,000 mls @ 250 mls/hr 06/19/20 15:26 06/20/20 18:31 Lactated Ringers IV 250 mls/hr DIRECT JERMAINE Infusion Levofloxacin/Dextrose 500 mg in 100 mls @ 100 mls/hr 06/21/20 15:00 Levaquin 500mg/100ml IV Q48H JERMAINE Sodium Chloride 100 mls @ 999 mls/hr 06/20/20 18:47 Nacl 0.9% IV MARIELLE PRN Hypotension Insulin Human Lispro 0 unit 06/18/20 16:00 06/20/20 17:09 Insulin Lispro 100 Unit/Ml Vial 3 Ml SUB-Q 6 unit Q6H JERMAINE Administration Protocol Sodium Chloride 10 ml 06/17/20 22:00 06/20/20 11:20 Sodium Chloride 0.9% 10 Ml Flush Syringe IV 10 ml BID JERMAINE Administration Sodium Chloride 10 ml 06/17/20 13:40 Sodium Chloride 0.9% 10 Ml Flush Syringe IV PRN PRN LINE FLUSH
--- NOTE | 2020-06-20 20:11 | Progress Note ---
Assessment and Plan Diabetic ketoacidosis. Acute toxic metabolic encephalopathy. Severe sepsis at presentation. Leukocytosis, presumably stress leukocytosis. Hypernatremia. Rhabdomyolysis. Acute kidney injury - nephrology evaluation ongoing - gentle hydration while monitoring electrolytes - supplemental oxygen to keep O2 sats > 90% - prn Bronchodilators (INÉS) with pulm hygiene per RT - continue to avoid nephrotoxins, renally dose all medications - mobility protocols to prevent pressure ulcers - PT/OT as tolerated - prn analgesia per pain score - continue accuchecks with glycemic control per SSI for target blood glucose < 180 mg/dL - GI & VTE prophylaxis - Flu & pneumovax per protocol - continue other care per attending / other consultants ... re-evaluate in am & prn Subjective Date of service: 06/20/20 Principal diagnosis: DKA; Ac encephalopathy; Severe sepsis; Rhabdomyolysis; YUNI. Interval history: Patient is seen today for: Diabetic ketoacidosis; Acute toxic metabolic encephalopathy; Severe sepsis; Rhabdomyolysis; Acute kidney injury Seen and examined at bedside; 24hour events reviewed; nursing and respiratory care staff consulted; no adverse overnight events reported to me; resting in bed; off IV insulin; denies N/V/F/C Objective Vital Signs - 12hr 06/20/20 06/20/20 06/20/20 09:00 10:00 11:00 Pulse Rate 106 H 107 H 103 H Respiratory 26 H 20 21 Rate Blood Pressure 135/88 131/89 135/93 O2 Sat by Pulse 93 95 95 Oximetry 06/20/20 06/20/20 06/20/20 12:00 13:00 14:00 Pulse Rate 110 H 112 H 112 H Respiratory 21 24 21 Rate Blood Pressure 130/87 139/91 136/93 O2 Sat by Pulse 95 94 95 Oximetry 06/20/20 06/20/20 06/20/20 15:00 16:00 17:00 Pulse Rate 110 H 108 H 111 H Respiratory 20 25 H 22 Rate Blood Pressure 137/90 133/89 137/96 O2 Sat by Pulse 95 94 95 Oximetry Constitutional: no acute distress, other (middle aged male with normal respiratory effort at rest) Eyes: non-icteric ENT: oropharynx moist Neck: supple, no lymphadenopathy, no JVD Effort: normal Ascultation: Bilateral: clear Percussion: Bilateral: not dull Cardiovascular: regular rate and rhythm Gastrointestinal: normoactive bowel sounds, soft, non-tender, non-distended Integumentary: rash (xeroderma) Extremities: no cyanosis, no edema, pulses normal, no ischemia or petechiae Neurologic: non-focal exam, pupils equal and round, CN II-XII normal, motor strength normal and Psychiatric: mood appropriate, affect normal CBC and BMP: 06/22/20 05:51 06/22/20 05:51 ABG, PT/INR, D-dimer: PT/INR, D-dimer PT 22.1 Sec. (12.2-14.9) H 06/17/20 11:24 INR 1.92 (0.87-1.13) H 06/17/20 11:24 Abnormal lab findings: Abnormal Labs 06/17/20 06/17/20 06/17/20 11:24 11:24 11:24 WBC 14.7 H RBC 5.38 H Hgb Hct 49.1 H MCH 27 L MCHC 29 L Lymph % (Auto) 9.9 L Seg Neutrophils % 86.8 H Seg Neuts % (Manual) Lymphocytes % (Manual) Seg Neutrophils # 12.8 H Seg Neutrophils # Man Monocytes # (Manual) Basophils # (Manual) PT 22.1 H INR 1.92 H APTT 38.9 H VBG pH Sodium 149 H Potassium Chloride Carbon Dioxide BUN 84 H Creatinine 3.6 H Glucose 1394 H* POC Glucose Lactic Acid Calcium Phosphorus Magnesium AST 59 H ALT Total Creatine Kinase 5507 H CK-MB (CK-2) 7.9 H Total Protein 9.0 H Albumin 3.7 L Free T4 Urine WBC (Auto) 06/17/20 06/17/20 06/17/20 11:24 11:24 11:24 WBC RBC Hgb Hct MCH MCHC Lymph % (Auto) Seg Neutrophils % Seg Neuts % (Manual) Lymphocytes % (Manual) Seg Neutrophils # Seg Neutrophils # Man Monocytes # (Manual) Basophils # (Manual) PT INR APTT VBG pH 7.123 L* Sodium Potassium Chloride Carbon Dioxide BUN Creatinine Glucose POC Glucose Lactic Acid Calcium Phosphorus Magnesium 6.20 H AST ALT Total Creatine Kinase CK-MB (CK-2) Total Protein Albumin Free T4 1.65 H Urine WBC (Auto) 06/17/20 06/17/20 06/17/20 15:27 15:33 15:33 WBC RBC Hgb Hct MCH MCHC Lymph % (Auto) Seg Neutrophils % Seg Neuts % (Manual) Lymphocytes % (Manual) Seg Neutrophils # Seg Neutrophils # Man Monocytes # (Manual) Basophils # (Manual) PT INR APTT VBG pH Sodium Potassium Chloride Carbon Dioxide BUN Creatinine Glucose 1086 H* POC Glucose > 600 H Lactic Acid Calcium Phosphorus 9.40 H Magnesium 4.50 H AST ALT Total Creatine Kinase CK-MB (CK-2) Total Protein Albumin Free T4 Urine WBC (Auto) 06/17/20 06/17/20 06/17/20 16:58 18:39 18:41 WBC RBC Hgb Hct MCH MCHC Lymph % (Auto) Seg Neutrophils % Seg Neuts % (Manual) Lymphocytes % (Manual) Seg Neutrophils # Seg Neutrophils # Man Monocytes # (Manual) Basophils # (Manual) PT INR APTT VBG pH Sodium 155 H 154 H Potassium 3.0 L D 2.8 L* Chloride 114.0 H 117.3 H Carbon Dioxide 20 L 19 L BUN 83 H 84 H Creatinine 3.2 H 3.3 H Glucose 1046 H* 830 H* POC Glucose > 600 H Lactic Acid Calcium 7.8 L D 7.9 L Phosphorus Magnesium AST ALT Total Creatine Kinase CK-MB (CK-2) Total Protein Albumin Free T4 Urine WBC (Auto) 06/17/20 06/17/20 06/17/20 21:15 21:15 Unknown WBC RBC Hgb Hct MCH MCHC Lymph % (Auto) Seg Neutrophils % Seg Neuts % (Manual) Lymphocytes % (Manual) Seg Neutrophils # Seg Neutrophils # Man Monocytes # (Manual) Basophils # (Manual) PT INR APTT VBG pH Sodium 157 H Potassium 2.9 L* Chloride 118.8 H Carbon Dioxide 19 L BUN 84 H Creatinine 3.3 H Glucose 666 H* POC Glucose Lactic Acid 2.80 H* Calcium 7.8 L Phosphorus Magnesium AST ALT Total Creatine Kinase CK-MB (CK-2) Total Protein Albumin Free T4 Urine WBC (Auto) 7.0 H 06/18/20 06/18/20 06/18/20 00:10 00:20 03:20 WBC RBC Hgb Hct MCH MCHC Lymph % (Auto) Seg Neutrophils % Seg Neuts % (Manual) Lymphocytes % (Manual) Seg Neutrophils # Seg Neutrophils # Man Monocytes # (Manual) Basophils # (Manual) PT INR APTT VBG pH Sodium 160 H Potassium 3.0 L Chloride 118.8 H Carbon Dioxide BUN 89 H Creatinine 3.8 H Glucose 650 H* POC Glucose 291 H Lactic Acid 2.40 H* Calcium 7.8 L Phosphorus Magnesium AST ALT Total Creatine Kinase CK-MB (CK-2) Total Protein Albumin Free T4 Urine WBC (Auto) 06/18/20 06/18/20 06/18/20 05:19 06:27 06:27 WBC RBC Hgb Hct MCH MCHC Lymph % (Auto) Seg Neutrophils % Seg Neuts % (Manual) Lymphocytes % (Manual) Seg Neutrophils # Seg Neutrophils # Man Monocytes # (Manual) Basophils # (Manual) PT INR APTT VBG pH Sodium 167 H* Potassium 3.4 L Chloride 126.4 H Carbon Dioxide 21 L BUN 99 H Creatinine 4.5 H Glucose 291 H POC Glucose 276 H Lactic Acid 2.80 H* Calcium 8.1 L Phosphorus Magnesium AST ALT Total Creatine Kinase CK-MB (CK-2) Total Protein Albumin Free T4 Urine WBC (Auto) 06/18/20 06/18/20 06/18/20 06:45 08:40 08:49 WBC RBC Hgb Hct MCH MCHC Lymph % (Auto) Seg Neutrophils % Seg Neuts % (Manual) Lymphocytes % (Manual) Seg Neutrophils # Seg Neutrophils # Man Monocytes # (Manual) Basophils # (Manual) PT INR APTT VBG pH Sodium Potassium Chloride Carbon Dioxide BUN Creatinine Glucose POC Glucose 215 H 182 H Lactic Acid 2.20 H* Calcium Phosphorus Magnesium AST ALT Total Creatine Kinase CK-MB (CK-2) Total Protein Albumin Free T4 Urine WBC (Auto) 06/18/20 06/18/20 06/18/20 10:01 10:28 11:40 WBC RBC Hgb Hct MCH MCHC Lymph % (Auto) Seg Neutrophils % Seg Neuts % (Manual) Lymphocytes % (Manual) Seg Neutrophils # Seg Neutrophils # Man Monocytes # (Manual) Basophils # (Manual) PT INR APTT VBG pH Sodium 161 H* Potassium Chloride 125.4 H Carbon Dioxide 21 L BUN 98 H Creatinine 5.0 H Glucose 247 H POC Glucose 217 H Lactic Acid 3.20 H* Calcium 7.8 L Phosphorus Magnesium AST ALT Total Creatine Kinase CK-MB (CK-2) Total Protein Albumin Free T4 Urine WBC (Auto) 06/18/20 06/18/20 06/18/20 11:40 11:40 12:33 WBC RBC Hgb Hct MCH MCHC Lymph % (Auto) Seg Neutrophils % Seg Neuts % (Manual) Lymphocytes % (Manual) Seg Neutrophils # Seg Neutrophils # Man Monocytes # (Manual) Basophils # (Manual) PT INR APTT VBG pH Sodium Potassium Chloride Carbon Dioxide BUN Creatinine Glucose POC Glucose 199 H Lactic Acid 2.40 H* Calcium Phosphorus Magnesium AST ALT Total Creatine Kinase 41914 H CK-MB (CK-2) Total Protein Albumin Free T4 Urine WBC (Auto) 06/18/20 06/18/20 06/18/20 13:57 16:27 21:58 WBC RBC Hgb Hct MCH MCHC Lymph % (Auto) Seg Neutrophils % Seg Neuts % (Manual) Lymphocytes % (Manual) Seg Neutrophils # Seg Neutrophils # Man Monocytes # (Manual) Basophils # (Manual) PT INR APTT VBG pH Sodium Potassium Chloride Carbon Dioxide BUN Creatinine Glucose POC Glucose 198 H 185 H 281 H Lactic Acid Calcium Phosphorus Magnesium AST ALT Total Creatine Kinase CK-MB (CK-2) Total Protein Albumin Free T4 Urine WBC (Auto) 06/19/20 06/19/20 06/19/20 00:55 00:55 04:25 WBC RBC Hgb Hct MCH MCHC Lymph % (Auto) Seg Neutrophils % Seg Neuts % (Manual) Lymphocytes % (Manual) Seg Neutrophils # Seg Neutrophils # Man Monocytes # (Manual) Basophils # (Manual) PT INR APTT VBG pH Sodium 164 H* Potassium Chloride 125.8 H Carbon Dioxide 21 L BUN 100 H Creatinine 6.4 H Glucose 370 H POC Glucose 366 H Lactic Acid 2.30 H* Calcium 7.4 L Phosphorus Magnesium AST ALT Total Creatine Kinase CK-MB (CK-2) Total Protein Albumin Free T4 Urine WBC (Auto) 06/19/20 06/19/20 06/19/20 11:49 14:24 15:44 WBC RBC Hgb Hct MCH MCHC Lymph % (Auto) Seg Neutrophils % Seg Neuts % (Manual) Lymphocytes % (Manual) Seg Neutrophils # Seg Neutrophils # Man Monocytes # (Manual) Basophils # (Manual) PT INR APTT VBG pH Sodium Potassium Chloride Carbon Dioxide BUN Creatinine Glucose POC Glucose 411 H Lactic Acid 2.90 H* Calcium Phosphorus Magnesium AST ALT Total Creatine Kinase 40699 H CK-MB (CK-2) Total Protein Albumin Free T4 Urine WBC (Auto) 06/19/20 06/19/20 06/19/20 18:41 21:44 22:16 WBC RBC Hgb Hct MCH MCHC Lymph % (Auto) Seg Neutrophils % Seg Neuts % (Manual) Lymphocytes % (Manual) Seg Neutrophils # Seg Neutrophils # Man Monocytes # (Manual) Basophils # (Manual) PT INR APTT VBG pH Sodium Potassium Chloride Carbon Dioxide BUN Creatinine Glucose POC Glucose 404 H 333 H Lactic Acid 2.50 H* Calcium Phosphorus Magnesium AST ALT Total Creatine Kinase CK-MB (CK-2) Total Protein Albumin Free T4 Urine WBC (Auto) 06/20/20 06/20/20 06/20/20 00:12 04:37 05:08 WBC RBC Hgb Hct MCH MCHC Lymph % (Auto) Seg Neutrophils % Seg Neuts % (Manual) Lymphocytes % (Manual) Seg Neutrophils # Seg Neutrophils # Man Monocytes # (Manual) Basophils # (Manual) PT INR APTT VBG pH Sodium Potassium Chloride Carbon Dioxide BUN Creatinine Glucose POC Glucose 318 H Lactic Acid 2.10 H* Calcium Phosphorus Magnesium AST ALT Total Creatine Kinase 79082 H CK-MB (CK-2) Total Protein Albumin Free T4 Urine WBC (Auto) 06/20/20 06/20/20 06/20/20 10:19 14:47 14:47 WBC 15.1 H RBC Hgb 10.2 L Hct 32.0 L MCH 27 L MCHC Lymph % (Auto) Seg Neutrophils % Seg Neuts % (Manual) 79.0 H Lymphocytes % (Manual) 12.0 L Seg Neutrophils # Seg Neutrophils # Man 11.9 H Monocytes # (Manual) 1.1 H Basophils # (Manual) 0.2 H PT INR APTT VBG pH Sodium 156 H Potassium 5.9 H D Chloride 118.3 H Carbon Dioxide 20 L BUN 159 H Creatinine 9.4 H Glucose 283 H POC Glucose 220 H Lactic Acid Calcium 7.7 L Phosphorus Magnesium AST 149 H ALT 89 H Total Creatine Kinase CK-MB (CK-2) Total Protein 5.9 L D Albumin 2.3 L Free T4 Urine WBC (Auto) 06/20/20 17:02 WBC RBC Hgb Hct MCH MCHC Lymph % (Auto) Seg Neutrophils % Seg Neuts % (Manual) Lymphocytes % (Manual) Seg Neutrophils # Seg Neutrophils # Man Monocytes # (Manual) Basophils # (Manual) PT INR APTT VBG pH Sodium Potassium Chloride Carbon Dioxide BUN Creatinine Glucose POC Glucose 248 H Lactic Acid Calcium Phosphorus Magnesium AST ALT Total Creatine Kinase CK-MB (CK-2) Total Protein Albumin Free T4 Urine WBC (Auto) Allied health notes reviewed: nursing
[2020-06-20 20:41] LABS: Hepatitis B Surface Antigen Non-Reactive (Negative); Hepatitis C Virus Antibody Non-Reactive (NonReactive)
--- NOTE | 2020-06-20 20:44 | Consultation ---
History of Present Illness - Reason for Consult Consult date: 06/20/20 Vas-Cath Insertion Requesting physician: INÉS STEPHENSON - History of Present Illness The patient is a 44-year-old male with a history of diabetes who was found down outside. He was admitted to the emergency department with DKA and rhabdomyolysis. He has been treated with sodium bicarbonate drip over the past several days however he has progressed to acute kidney injury. His CK levels peaked at 46,000 but have trended down to 22,000. He denies any pain or numbness at this time. He denies fever or chills. He has no additional complaints at this time. Past History Past Medical History: diabetes Past Surgical History: No surgical history, Other Social history: single, other Family history: no significant family history Medications and Allergies Allergies Allergy/AdvReac Type Severity Reaction Status Date / Time Unable to Assess Allergy Unverified 06/17/20 12:54 Active Meds: Active Medications Acetaminophen (Acetaminophen 325 Mg Tab) 650 mg PO Q6H PRN PRN Reason: Pain, Mild (1-3) Albuterol (Albuterol 2.5 Mg/3 Ml Nebu) 2.5 mg IH Q3HRT PRN PRN Reason: Shortness Of Breath Dextrose (Dextrose 50% In Water (25gm) 50 Ml Syringe) 50 ml IV Q30MIN PRN; Protocol PRN Reason: Hypoglycemia Famotidine (Famotidine 20 Mg Tab) 20 mg PO QDAY [facility], [facility] Last Admin: 06/20/20 11:13 Dose: 20 mg Documented by: Heparin Sodium (Porcine) (Heparin 5,000 Unit/1 Ml Vial) 5,000 unit SUB-Q Q12HR [facility] Last Admin: 06/20/20 11:13 Dose: 5,000 unit Documented by: Hydromorphone HCl (Hydromorphone 1 Mg/1 Ml Inj) 0.25 mg IV Q4H PRN PRN Reason: Pain, Moderate (4-6) Lactated Ringer's (Lactated Ringers) 5,000 mls @ 250 mls/hr IV DIRECT [facility], [facility] Last Infusion: 06/20/20 18:31 Dose: 250 mls/hr Documented by: Levofloxacin/Dextrose (Levaquin 500mg/100ml) 500 mg in 100 mls @ 100 mls/hr IV Q48H JERMAINE Sodium Chloride (Nacl 0.9%) 100 mls @ 999 mls/hr IV MARIELLE PRN PRN Reason: Hypotension Insulin Human Lispro (Insulin Lispro 100 Unit/Ml Vial 3 Ml) 0 unit SUB-Q Q6H [facility], [facility]; Protocol Last Admin: 06/20/20 17:09 Dose: 6 unit Documented by: Sodium Chloride (Sodium Chloride 0.9% 10 Ml Flush Syringe) 10 ml IV BID [facility] Last Admin: 06/20/20 11:20 Dose: 10 ml Documented by: Sodium Chloride (Sodium Chloride 0.9% 10 Ml Flush Syringe) 10 ml IV PRN PRN PRN Reason: LINE FLUSH Review of Systems All systems: negative Exam - Constitutional Vitals: Temp Pulse Resp BP Pulse Ox 98.6 F 111 H 22 137/96 95 06/20/20 08:07 06/20/20 17:00 06/20/20 17:00 06/20/20 17:00 06/20/20 17:00 General appearance: Present: no acute distress - Neck Neck: Present: supple - Respiratory Respiratory effort: normal - Cardiovascular Heart rate: 115 Rhythm: other (Tachycardia) - Extremities Extremities: no ischemia, pulses intact (Palpable DP and PT bilateral), pulses symmetrical, No edema, abnormal (All compartments of his lower extremity and upper extremity are soft and nontender) - Abdominal General gastrointestinal: Present: soft, non-tender, non-distended Male genitourinary: Present: deferred - Rectal Rectal Exam: deferred Results - Labs CBC & Chem 7: 06/20/20 14:47 06/20/20 14:47 Labs: Abnormal lab results 06/19/20 06/19/20 06/20/20 Range/Units 21:44 22:16 00:12 WBC (4.5-11.0) K/mm3 Hgb (11.8-15.2) gm/dl Hct (35.5-45.6) % MCH (28-32) pg Seg Neuts % (Manual) (40.0-70.0) % Lymphocytes % (Manual) (13.4-35.0) % Seg Neutrophils # Man (1.8-7.7) K/mm3 Monocytes # (Manual) (0.0-0.8) K/mm3 Basophils # (Manual) (0.0-0.1) K/mm3 Sodium (137-145) mmol/L Potassium (3.6-5.0) mmol/L Chloride (98-107) mmol/L Carbon Dioxide (22-30) mmol/L BUN (9-20) mg/dL Creatinine (0.8-1.3) mg/dL Glucose (75-100) mg/dL POC Glucose 333 H (70-105) mg/dL Lactic Acid 2.50 H* 2.10 H* (0.7-2.0) mmol/L Calcium (8.4-10.2) mg/dL Phosphorus (2.5-4.5) mg/dL AST (5-40) units/L ALT (7-56) units/L Total Creatine Kinase (55-170) units/L Total Protein (6.3-8.2) g/dL Albumin (3.9-5) g/dL 06/20/20 06/20/20 06/20/20 Range/Units 04:37 05:08 10:19 WBC (4.5-11.0) K/mm3 Hgb (11.8-15.2) gm/dl Hct (35.5-45.6) % MCH (28-32) pg Seg Neuts % (Manual) (40.0-70.0) % Lymphocytes % (Manual) (13.4-35.0) % Seg Neutrophils # Man (1.8-7.7) K/mm3 Monocytes # (Manual) (0.0-0.8) K/mm3 Basophils # (Manual) (0.0-0.1) K/mm3 Sodium (137-145) mmol/L Potassium (3.6-5.0) mmol/L Chloride (98-107) mmol/L Carbon Dioxide (22-30) mmol/L BUN (9-20) mg/dL Creatinine (0.8-1.3) mg/dL Glucose (75-100) mg/dL POC Glucose 318 H 220 H (70-105) mg/dL Lactic Acid (0.7-2.0) mmol/L Calcium (8.4-10.2) mg/dL Phosphorus (2.5-4.5) mg/dL AST (5-40) units/L ALT (7-56) units/L Total Creatine Kinase 28163 H (55-170) units/L Total Protein (6.3-8.2) g/dL Albumin (3.9-5) g/dL 06/20/20 06/20/20 06/20/20 Range/Units 14:47 14:47 17:02 WBC 15.1 H (4.5-11.0) K/mm3 Hgb 10.2 L (11.8-15.2) gm/dl Hct 32.0 L (35.5-45.6) % MCH 27 L (28-32) pg Seg Neuts % (Manual) 79.0 H (40.0-70.0) % Lymphocytes % (Manual) 12.0 L (13.4-35.0) % Seg Neutrophils # Man 11.9 H (1.8-7.7) K/mm3 Monocytes # (Manual) 1.1 H (0.0-0.8) K/mm3 Basophils # (Manual) 0.2 H (0.0-0.1) K/mm3 Sodium 156 H (137-145) mmol/L Potassium 5.9 H D (3.6-5.0) mmol/L Chloride 118.3 H (98-107) mmol/L Carbon Dioxide 20 L (22-30) mmol/L BUN 159 H (9-20) mg/dL Creatinine 9.4 H (0.8-1.3) mg/dL Glucose 283 H (75-100) mg/dL POC Glucose 248 H (70-105) mg/dL Lactic Acid (0.7-2.0) mmol/L Calcium 7.7 L (8.4-10.2) mg/dL Phosphorus (2.5-4.5) mg/dL AST 149 H (5-40) units/L ALT 89 H (7-56) units/L Total Creatine Kinase (55-170) units/L Total Protein 5.9 L D (6.3-8.2) g/dL Albumin 2.3 L (3.9-5) g/dL 06/20/20 Range/Units 19:43 WBC (4.5-11.0) K/mm3 Hgb (11.8-15.2) gm/dl Hct (35.5-45.6) % MCH (28-32) pg Seg Neuts % (Manual) (40.0-70.0) % Lymphocytes % (Manual) (13.4-35.0) % Seg Neutrophils # Man (1.8-7.7) K/mm3 Monocytes # (Manual) (0.0-0.8) K/mm3 Basophils # (Manual) (0.0-0.1) K/mm3 Sodium (137-145) mmol/L Potassium (3.6-5.0) mmol/L Chloride (98-107) mmol/L Carbon Dioxide (22-30) mmol/L BUN (9-20) mg/dL Creatinine (0.8-1.3) mg/dL Glucose (75-100) mg/dL POC Glucose (70-105) mg/dL Lactic Acid (0.7-2.0) mmol/L Calcium (8.4-10.2) mg/dL Phosphorus 6.70 H (2.5-4.5) mg/dL AST (5-40) units/L ALT (7-56) units/L Total Creatine Kinase (55-170) units/L Total Protein (6.3-8.2) g/dL Albumin (3.9-5) g/dL Assessment and Plan The patient is a 44-year-old male who was found down and brought into the emerge ncy department with severe DKA and rhabdomyolysis. Despite treatment with fluids including sodium bicarbonate to protect his kidneys he has progressively worsening acute kidney injury with uremia and a potassium of 5.9. I discussed placement of a Vas-Cath for urgent dialysis however the patient states that he is not comfortable with being placed on dialysis at this time. He states that he feels that the medical team should discuss other means of treating his renal failure prior to initiating dialysis. He has declined placement of the Vas-Cath at this time. I will make him n.p.o. after midnight just in case he does change his mind.
[2020-06-21] MEDS: LACTATED RINGERS IV SCH ×2 (00:46→05:04)
[2020-06-21] MEDS: FREE WATER PO SCH ×4 (02:25→13:59)
[2020-06-21] MEDS: INSULIN LISPRO 100 UNIT/ML VIAL 3 mL SUB-Q SCH ×3 (04:41→18:09)
[2020-06-21] MEDS: FAMOTIDINE 20 MG TAB PO SCH (09:49)
[2020-06-21] MEDS: HEPARIN 5,000 UNIT/1 ML VIAL SUB-Q SCH ×2 (09:49→23:28)
--- NOTE | 2020-06-21 10:11 | Progress Note ---
Assessment and Plan Assessment * Acute kidney injury * Uremia * Severe hypernatremia * Hyperkalemia * Rhabdomyolysis, severe * Acidosis * Acute encephalopathy * Sepsis * DKA Recommendations * Plan for HD today following vasc-cath placement for clearance * Continue ivfs * S/p Garcia, strict I's/O * Trend CPK daily * Check ionized calcium and phosphorus * F/u renal ultrasound * add sodium bicarb to alkalize urine in rhabo * refused hd yesterday, vascular to place vasc cath today * DKA protocol per primary * Renally dose medications * Avoid nephrotoxins Subjective Date of service: 06/21/20 Principal diagnosis: DKA; Ac encephalopathy; Severe sepsis; Rhabdomyolysis; YUNI. Interval history: resting in bed today Objective - Exam Narrative Exam: Constitutional: No acute distress Head: Normocephalic/atraumatic Neck: Supple Lungs: Clear to auscultation bilaterally Cardiovascular: RRR, no M/R/G Abdomen: Soft, nontender, NABS Back, nontender Extremities: No edema, pulses within normal limits Skin: Intact, no rash Neuro: Tremulous, oriented only to self and time - Vital Signs Vital signs: Vital Signs - 12hr 06/20/20 06/21/20 06/21/20 23:00 00:00 01:00 Pulse Rate 112 H 115 H 111 H Respiratory 20 24 24 Rate Blood Pressure 134/86 128/89 146/82 O2 Sat by Pulse Oximetry 06/21/20 06/21/20 06/21/20 02:00 03:00 04:00 Pulse Rate 115 H 106 H 109 H Respiratory 23 21 25 H Rate Blood Pressure 134/88 135/81 136/83 O2 Sat by Pulse 93 Oximetry 06/21/20 06/21/20 05:00 06:00 Pulse Rate 110 H 115 H Respiratory 25 H 22 Rate Blood Pressure 136/82 145/93 O2 Sat by Pulse 95 Oximetry - Lab 06/20/20 14:47 06/20/20 14:47 Most recent lab results Calcium 7.7 mg/dL (8.4-10.2) L 06/20/20 14:47 Phosphorus 6.70 mg/dL (2.5-4.5) H 06/20/20 19:43 Magnesium 4.50 mg/dL (1.7-2.3) H 06/17/20 15:33 Medications & Allergies - Medications Allergies/Adverse Reactions: Allergies Unable to Assess Allergy (Unverified 06/17/20 12:54) Pt not verbal at this time Active Medications: Generic Name Dose Route Start Last Admin Trade Name Freq PRN Reason Stop Dose Admin Acetaminophen 650 mg 06/17/20 13:40 Acetaminophen 325 Mg Tab PO Q6H PRN Pain, Mild (1-3) Albuterol 2.5 mg 06/17/20 13:40 Albuterol 2.5 Mg/3 Ml Nebu IH Q3HRT PRN Shortness Of Breath Dextrose 50 ml 06/19/20 15:28 Dextrose 50% In Water (25gm) 50 Ml Syringe IV Q30MIN PRN Hypoglycemia Protocol Famotidine 20 mg 06/19/20 10:00 06/21/20 09:49 Famotidine 20 Mg Tab PO 20 mg QDAY JERMAINE Administration Heparin Sodium (Porcine) 5,000 unit 06/17/20 22:00 06/21/20 09:49 Heparin 5,000 Unit/1 Ml Vial SUB-Q 5,000 unit Q12HR JERMAINE Administration Hydromorphone HCl 0.25 mg 06/17/20 13:40 Hydromorphone 1 Mg/1 Ml Inj IV Q4H PRN Pain, Moderate (4-6) Lactated Ringer's 5,000 mls @ 250 mls/hr 06/19/20 15:26 06/21/20 05:04 Lactated Ringers IV 250 mls/hr DIRECT JERMAINE Administration Levofloxacin/Dextrose 500 mg in 100 mls @ 100 mls/hr 06/21/20 15:00 Levaquin 500mg/100ml IV 06/25/20 15:59 Q48H JERMAINE Sodium Chloride 100 mls @ 999 mls/hr 06/20/20 18:47 Nacl 0.9% IV MARIELLE PRN Hypotension Insulin Human Lispro 0 unit 06/18/20 16:00 06/21/20 09:48 Insulin Lispro 100 Unit/Ml Vial 3 Ml SUB-Q 6 unit Q6H JERMAINE Administration Protocol Sodium Chloride 10 ml 06/17/20 22:00 06/21/20 09:49 Sodium Chloride 0.9% 10 Ml Flush Syringe IV 10 ml BID JERMAINE Administration Sodium Chloride 10 ml 06/17/20 13:40 Sodium Chloride 0.9% 10 Ml Flush Syringe IV PRN PRN LINE FLUSH
[2020-06-21] MEDS: SODIUM BICARBONATE 50 MEQ in DEXTROSE 5% IN WATER 1,000 ML IV SCH ×2 (10:56→20:40)
[2020-06-21] MEDS ORDERED: MIDAZOLAM 2 MG/2 ML INJ ONE (12:32)
[2020-06-21] MEDS ORDERED: fentaNYL 100 MCG/2 ML INJ ONE (12:32)
[2020-06-21] MEDS ORDERED: HEPARIN/NS 5000 UNIT/500ML 500 ML IR ONE (12:34)
[2020-06-21] MEDS ORDERED: LIDOCAINE (2%) 20 MG/1 ML VIAL 20 ML MDV INFILTRATI ONE (12:35)
[2020-06-21] MEDS ORDERED: SODIUM CHLORIDE 0.9% 500 ML 500 ML ONE (12:36)
--- NOTE | 2020-06-21 12:45 | Progress Note ---
Assessment and Plan Diabetic ketoacidosis. Acute toxic metabolic encephalopathy. Severe sepsis at presentation. Leukocytosis, presumably stress leukocytosis. Hypernatremia. Rhabdomyolysis. Acute kidney injury - azotemia per nephrology; for vas-cath - gentle hydration while monitoring electrolytes - supplemental oxygen to keep O2 sats > 90% - prn Bronchodilators (INÉS) with pulm hygiene per RT - continue to avoid nephrotoxins, renally dose all medications - mobility protocols to prevent pressure ulcers - PT/OT as tolerated - prn analgesia per pain score - continue accuchecks with glycemic control per SSI for target blood glucose < 180 mg/dL - GI & VTE prophylaxis - Flu & pneumovax per protocol - continue other care per attending / other consultants ... re-evaluate in am & prn Subjective Date of service: 06/21/20 Principal diagnosis: DKA; Ac encephalopathy; Severe sepsis; Rhabdomyolysis; YUNI. Interval history: Patient is seen today for: Diabetic ketoacidosis; Acute toxic metabolic encephalopathy; Severe sepsis; Rhabdomyolysis; Acute kidney injury Seen and examined at bedside; 24hour events reviewed; nursing and respiratory care staff consulted; no adverse overnight events reported to me; resting in bed; tentatively to begin dialysis; NPO status discontinued; No N/V/F/C Objective Vital Signs - 12hr 06/21/20 06/21/20 06/21/20 01:00 02:00 03:00 Temperature Pulse Rate 111 H 115 H 106 H Respiratory 24 23 21 Rate Blood Pressure 146/82 134/88 135/81 Blood Pressure [Right] O2 Sat by Pulse Oximetry 06/21/20 06/21/20 06/21/20 04:00 05:00 06:00 Temperature Pulse Rate 109 H 110 H 115 H Respiratory 25 H 25 H 22 Rate Blood Pressure 136/83 136/82 145/93 Blood Pressure [Right] O2 Sat by Pulse 93 95 Oximetry 06/21/20 12:19 Temperature 98.6 F Pulse Rate 110 H Respiratory 13 Rate Blood Pressure Blood Pressure 140/88 [Right] O2 Sat by Pulse 94 Oximetry Constitutional: no acute distress, other (middle aged male with normal respiratory effort at rest) Eyes: non-icteric ENT: oropharynx moist Neck: supple, no lymphadenopathy, no JVD Effort: normal Ascultation: Bilateral: clear Percussion: Bilateral: not dull Cardiovascular: regular rate and rhythm Gastrointestinal: normoactive bowel sounds, soft, non-tender, non-distended Integumentary: rash (xeroderma) Extremities: no cyanosis, no edema, pulses normal, no ischemia or petechiae Neurologic: non-focal exam, pupils equal and round, CN II-XII normal, motor strength normal and Psychiatric: mood appropriate, affect normal CBC and BMP: 06/22/20 05:51 06/22/20 05:51 ABG, PT/INR, D-dimer: PT/INR, D-dimer PT 22.1 Sec. (12.2-14.9) H 06/17/20 11:24 INR 1.92 (0.87-1.13) H 06/17/20 11:24 Abnormal lab findings: Abnormal Labs 06/17/20 06/17/20 06/17/20 11:24 11:24 11:24 WBC 14.7 H RBC 5.38 H Hgb Hct 49.1 H MCH 27 L MCHC 29 L Lymph % (Auto) 9.9 L Seg Neutrophils % 86.8 H Seg Neuts % (Manual) Lymphocytes % (Manual) Seg Neutrophils # 12.8 H Seg Neutrophils # Man Monocytes # (Manual) Basophils # (Manual) PT 22.1 H INR 1.92 H APTT 38.9 H VBG pH Sodium 149 H Potassium Chloride Carbon Dioxide BUN 84 H Creatinine 3.6 H Glucose 1394 H* POC Glucose Lactic Acid Calcium Phosphorus Magnesium AST 59 H ALT Total Creatine Kinase 5507 H CK-MB (CK-2) 7.9 H Total Protein 9.0 H Albumin 3.7 L Free T4 Urine WBC (Auto) 06/17/20 06/17/20 06/17/20 11:24 11:24 11:24 WBC RBC Hgb Hct MCH MCHC Lymph % (Auto) Seg Neutrophils % Seg Neuts % (Manual) Lymphocytes % (Manual) Seg Neutrophils # Seg Neutrophils # Man Monocytes # (Manual) Basophils # (Manual) PT INR APTT VBG pH 7.123 L* Sodium Potassium Chloride Carbon Dioxide BUN Creatinine Glucose POC Glucose Lactic Acid Calcium Phosphorus Magnesium 6.20 H AST ALT Total Creatine Kinase CK-MB (CK-2) Total Protein Albumin Free T4 1.65 H Urine WBC (Auto) 06/17/20 06/17/20 06/17/20 15:27 15:33 15:33 WBC RBC Hgb Hct MCH MCHC Lymph % (Auto) Seg Neutrophils % Seg Neuts % (Manual) Lymphocytes % (Manual) Seg Neutrophils # Seg Neutrophils # Man Monocytes # (Manual) Basophils # (Manual) PT INR APTT VBG pH Sodium Potassium Chloride Carbon Dioxide BUN Creatinine Glucose 1086 H* POC Glucose > 600 H Lactic Acid Calcium Phosphorus 9.40 H Magnesium 4.50 H AST ALT Total Creatine Kinase CK-MB (CK-2) Total Protein Albumin Free T4 Urine WBC (Auto) 06/17/20 06/17/20 06/17/20 16:58 18:39 18:41 WBC RBC Hgb Hct MCH MCHC Lymph % (Auto) Seg Neutrophils % Seg Neuts % (Manual) Lymphocytes % (Manual) Seg Neutrophils # Seg Neutrophils # Man Monocytes # (Manual) Basophils # (Manual) PT INR APTT VBG pH Sodium 155 H 154 H Potassium 3.0 L D 2.8 L* Chloride 114.0 H 117.3 H Carbon Dioxide 20 L 19 L BUN 83 H 84 H Creatinine 3.2 H 3.3 H Glucose 1046 H* 830 H* POC Glucose > 600 H Lactic Acid Calcium 7.8 L D 7.9 L Phosphorus Magnesium AST ALT Total Creatine Kinase CK-MB (CK-2) Total Protein Albumin Free T4 Urine WBC (Auto) 06/17/20 06/17/20 06/17/20 21:15 21:15 Unknown WBC RBC Hgb Hct MCH MCHC Lymph % (Auto) Seg Neutrophils % Seg Neuts % (Manual) Lymphocytes % (Manual) Seg Neutrophils # Seg Neutrophils # Man Monocytes # (Manual) Basophils # (Manual) PT INR APTT VBG pH Sodium 157 H Potassium 2.9 L* Chloride 118.8 H Carbon Dioxide 19 L BUN 84 H Creatinine 3.3 H Glucose 666 H* POC Glucose Lactic Acid 2.80 H* Calcium 7.8 L Phosphorus Magnesium AST ALT Total Creatine Kinase CK-MB (CK-2) Total Protein Albumin Free T4 Urine WBC (Auto) 7.0 H 06/18/20 06/18/20 06/18/20 00:10 00:20 03:20 WBC RBC Hgb Hct MCH MCHC Lymph % (Auto) Seg Neutrophils % Seg Neuts % (Manual) Lymphocytes % (Manual) Seg Neutrophils # Seg Neutrophils # Man Monocytes # (Manual) Basophils # (Manual) PT INR APTT VBG pH Sodium 160 H Potassium 3.0 L Chloride 118.8 H Carbon Dioxide BUN 89 H Creatinine 3.8 H Glucose 650 H* POC Glucose 291 H Lactic Acid 2.40 H* Calcium 7.8 L Phosphorus Magnesium AST ALT Total Creatine Kinase CK-MB (CK-2) Total Protein Albumin Free T4 Urine WBC (Auto) 06/18/20 06/18/20 06/18/20 05:19 06:27 06:27 WBC RBC Hgb Hct MCH MCHC Lymph % (Auto) Seg Neutrophils % Seg Neuts % (Manual) Lymphocytes % (Manual) Seg Neutrophils # Seg Neutrophils # Man Monocytes # (Manual) Basophils # (Manual) PT INR APTT VBG pH Sodium 167 H* Potassium 3.4 L Chloride 126.4 H Carbon Dioxide 21 L BUN 99 H Creatinine 4.5 H Glucose 291 H POC Glucose 276 H Lactic Acid 2.80 H* Calcium 8.1 L Phosphorus Magnesium AST ALT Total Creatine Kinase CK-MB (CK-2) Total Protein Albumin Free T4 Urine WBC (Auto) 06/18/20 06/18/20 06/18/20 06:45 08:40 08:49 WBC RBC Hgb Hct MCH MCHC Lymph % (Auto) Seg Neutrophils % Seg Neuts % (Manual) Lymphocytes % (Manual) Seg Neutrophils # Seg Neutrophils # Man Monocytes # (Manual) Basophils # (Manual) PT INR APTT VBG pH Sodium Potassium Chloride Carbon Dioxide BUN Creatinine Glucose POC Glucose 215 H 182 H Lactic Acid 2.20 H* Calcium Phosphorus Magnesium AST ALT Total Creatine Kinase CK-MB (CK-2) Total Protein Albumin Free T4 Urine WBC (Auto) 06/18/20 06/18/20 06/18/20 10:01 10:28 11:40 WBC RBC Hgb Hct MCH MCHC Lymph % (Auto) Seg Neutrophils % Seg Neuts % (Manual) Lymphocytes % (Manual) Seg Neutrophils # Seg Neutrophils # Man Monocytes # (Manual) Basophils # (Manual) PT INR APTT VBG pH Sodium 161 H* Potassium Chloride 125.4 H Carbon Dioxide 21 L BUN 98 H Creatinine 5.0 H Glucose 247 H POC Glucose 217 H Lactic Acid 3.20 H* Calcium 7.8 L Phosphorus Magnesium AST ALT Total Creatine Kinase CK-MB (CK-2) Total Protein Albumin Free T4 Urine WBC (Auto) 06/18/20 06/18/20 06/18/20 11:40 11:40 12:33 WBC RBC Hgb Hct MCH MCHC Lymph % (Auto) Seg Neutrophils % Seg Neuts % (Manual) Lymphocytes % (Manual) Seg Neutrophils # Seg Neutrophils # Man Monocytes # (Manual) Basophils # (Manual) PT INR APTT VBG pH Sodium Potassium Chloride Carbon Dioxide BUN Creatinine Glucose POC Glucose 199 H Lactic Acid 2.40 H* Calcium Phosphorus Magnesium AST ALT Total Creatine Kinase 77716 H CK-MB (CK-2) Total Protein Albumin Free T4 Urine WBC (Auto) 06/18/20 06/18/20 06/18/20 13:57 16:27 21:58 WBC RBC Hgb Hct MCH MCHC Lymph % (Auto) Seg Neutrophils % Seg Neuts % (Manual) Lymphocytes % (Manual) Seg Neutrophils # Seg Neutrophils # Man Monocytes # (Manual) Basophils # (Manual) PT INR APTT VBG pH Sodium Potassium Chloride Carbon Dioxide BUN Creatinine Glucose POC Glucose 198 H 185 H 281 H Lactic Acid Calcium Phosphorus Magnesium AST ALT Total Creatine Kinase CK-MB (CK-2) Total Protein Albumin Free T4 Urine WBC (Auto) 06/19/20 06/19/20 06/19/20 00:55 00:55 04:25 WBC RBC Hgb Hct MCH MCHC Lymph % (Auto) Seg Neutrophils % Seg Neuts % (Manual) Lymphocytes % (Manual) Seg Neutrophils # Seg Neutrophils # Man Monocytes # (Manual) Basophils # (Manual) PT INR APTT VBG pH Sodium 164 H* Potassium Chloride 125.8 H Carbon Dioxide 21 L BUN 100 H Creatinine 6.4 H Glucose 370 H POC Glucose 366 H Lactic Acid 2.30 H* Calcium 7.4 L Phosphorus Magnesium AST ALT Total Creatine Kinase CK-MB (CK-2) Total Protein Albumin Free T4 Urine WBC (Auto) 06/19/20 06/19/20 06/19/20 11:49 14:24 15:44 WBC RBC Hgb Hct MCH MCHC Lymph % (Auto) Seg Neutrophils % Seg Neuts % (Manual) Lymphocytes % (Manual) Seg Neutrophils # Seg Neutrophils # Man Monocytes # (Manual) Basophils # (Manual) PT INR APTT VBG pH Sodium Potassium Chloride Carbon Dioxide BUN Creatinine Glucose POC Glucose 411 H Lactic Acid 2.90 H* Calcium Phosphorus Magnesium AST ALT Total Creatine Kinase 41508 H CK-MB (CK-2) Total Protein Albumin Free T4 Urine WBC (Auto) 06/19/20 06/19/20 06/19/20 18:41 21:44 22:16 WBC RBC Hgb Hct MCH MCHC Lymph % (Auto) Seg Neutrophils % Seg Neuts % (Manual) Lymphocytes % (Manual) Seg Neutrophils # Seg Neutrophils # Man Monocytes # (Manual) Basophils # (Manual) PT INR APTT VBG pH Sodium Potassium Chloride Carbon Dioxide BUN Creatinine Glucose POC Glucose 404 H 333 H Lactic Acid 2.50 H* Calcium Phosphorus Magnesium AST ALT Total Creatine Kinase CK-MB (CK-2) Total Protein Albumin Free T4 Urine WBC (Auto) 06/20/20 06/20/20 06/20/20 00:12 04:37 05:08 WBC RBC Hgb Hct MCH MCHC Lymph % (Auto) Seg Neutrophils % Seg Neuts % (Manual) Lymphocytes % (Manual) Seg Neutrophils # Seg Neutrophils # Man Monocytes # (Manual) Basophils # (Manual) PT INR APTT VBG pH Sodium Potassium Chloride Carbon Dioxide BUN Creatinine Glucose POC Glucose 318 H Lactic Acid 2.10 H* Calcium Phosphorus Magnesium AST ALT Total Creatine Kinase 45376 H CK-MB (CK-2) Total Protein Albumin Free T4 Urine WBC (Auto) 06/20/20 06/20/20 06/20/20 10:19 14:47 14:47 WBC 15.1 H RBC Hgb 10.2 L Hct 32.0 L MCH 27 L MCHC Lymph % (Auto) Seg Neutrophils % Seg Neuts % (Manual) 79.0 H Lymphocytes % (Manual) 12.0 L Seg Neutrophils # Seg Neutrophils # Man 11.9 H Monocytes # (Manual) 1.1 H Basophils # (Manual) 0.2 H PT INR APTT VBG pH Sodium 156 H Potassium 5.9 H D Chloride 118.3 H Carbon Dioxide 20 L BUN 159 H Creatinine 9.4 H Glucose 283 H POC Glucose 220 H Lactic Acid Calcium 7.7 L Phosphorus Magnesium AST 149 H ALT 89 H Total Creatine Kinase CK-MB (CK-2) Total Protein 5.9 L D Albumin 2.3 L Free T4 Urine WBC (Auto) 06/20/20 06/20/20 06/20/20 17:02 19:43 22:01 WBC RBC Hgb Hct MCH MCHC Lymph % (Auto) Seg Neutrophils % Seg Neuts % (Manual) Lymphocytes % (Manual) Seg Neutrophils # Seg Neutrophils # Man Monocytes # (Manual) Basophils # (Manual) PT INR APTT VBG pH Sodium Potassium Chloride Carbon Dioxide BUN Creatinine Glucose POC Glucose 248 H 268 H Lactic Acid Calcium Phosphorus 6.70 H Magnesium AST ALT Total Creatine Kinase CK-MB (CK-2) Total Protein Albumin Free T4 Urine WBC (Auto) 06/21/20 06/21/20 06/21/20 02:22 04:28 09:45 WBC RBC Hgb Hct MCH MCHC Lymph % (Auto) Seg Neutrophils % Seg Neuts % (Manual) Lymphocytes % (Manual) Seg Neutrophils # Seg Neutrophils # Man Monocytes # (Manual) Basophils # (Manual) PT INR APTT VBG pH Sodium Potassium Chloride Carbon Dioxide BUN Creatinine Glucose POC Glucose 248 H 237 H 234 H Lactic Acid Calcium Phosphorus Magnesium AST ALT Total Creatine Kinase CK-MB (CK-2) Total Protein Albumin Free T4 Urine WBC (Auto) Allied health notes reviewed: nursing
[2020-06-21] MEDS: HEPARIN 10,000 UNITS/10 ML VIAL ONE ×3 (13:09→13:18)
--- NOTE | 2020-06-21 13:39 | Operative Report ---
Operative Report Operative Report: EXAM: 1. Ultrasound-guided puncture of the right internal jugular vein 2. Fluoroscopic-guided placement of a right internal jugular nontunneled noncuffed hemodialysis catheter. DATE: 06/21/2020 INDICATION: Acute renal failure requiring hemodialysis. MEDICATIONS: Please see nursing report for full details. DEVICES: 15 cm dual lumen hemodialysis catheter VICE PRESIDENT PAYER: RADHIKA DUNCAN MD CONTRAST: None PROCEDURE: The risks, benefits, and alternatives were discussed and informed consent was obtained. The patient was transported to the angiography suite in satisfactory/stable condition and was transported onto the angiography table. The patient's right internal jugular vein was assessed with ultrasound and determined to be patent prior to procedure. The patient was prepped and draped in a sterile fashion. The puncture site was anesthetized. The right internal jugular vein was patent on ultrasound. Under sonographic guidance, the right internal jugular vein was punctured with a 21-gauge micropuncture needle and a 0.018 inch wire was advanced through the needle. Needle was exchanged for transitional dilator. The inner dilator and wire was removed and a 0.035 inch wire was advanced through the transitional dilator into the inferior vena cava. Over the 0.035 inch wire, serial dilatation was performed. The catheter was advanced over the wire and positioned centrally under fluoroscopic guidance. 2-0 nylon suture was used to secure the catheter. The catheter was charged with heparin 1000 units/mL of space. Sterile dressing and Biopatch applied. The patient was transferred from the angiography suite back to the floor in stable condition. FINDINGS: 1. Excellent flow was obtained through the dialysis catheter with 20 mL syringes. 2. The catheter tip is in the right atrium. IMPRESSION: 1. Successful sonographically and fluoroscopically guided placement of a right internal jugular nontunneled noncuffed hemodialysis catheter.
[2020-06-21] MEDS ORDERED: SODIUM CHLORIDE 0.9% 100 ML IV PRN (14:40)
[2020-06-21 16:12] LABS: Hematocrit 29.8 % (35.5-45.6); Hemoglobin 9.3 gm/dl (11.8-15.2); Mean Corpuscular HGB Conc 31 % (32-34); Mean Corpuscular Volume 85 fl (84-94); Platelet Count 190 K/mm3 (140-440); Red Blood Count 3.51 M/mm3 (3.65-5.03); Red Cell Distribution Width 13.9 % (13.2-15.2)
[2020-06-21 16:28] LABS: Calcium 7.9 mg/dL (8.4-10.2)
[2020-06-21 17:01] LABS: Band Neutrophils # (Manual) 0.1 K/mm3; Total Cells Counted 100
[2020-06-21 17:02] LABS: Anisocytosis 1+; Burr Cells 1+; Large Platelets Few; Platelet Estimate Consistent w Auto; Poikilocytosis 1+
--- NOTE | 2020-06-21 20:40 | Progress Note ---
Assessment and Plan - Patient Problems (1) Sepsis Current Visit: Yes Status: Acute Plan to address problem: Sepsis protocol: CBC, CMP, chest x-ray, urinalysis, IV fluid resuscitation therapy, IV antibiotic therapy, serial lactic acid, blood culture, monitor urine output every shift, monitor fluid balance, maintain mean arterial pressure greater than or equal to 65, The high probability of a clinically significant, sudden or life threatening deterioration of the [cardiac, neuro, pulmonary, renal, endocrine] system(s) required my full and direct attention, intervention and personal management. The aggregate critical care time was [65] minutes. This time is in addition to time spent performing reported procedures but includes the following: [x] Data Review and interpretation [x] Patient assessment and monitoring of vital signs [x] Documentation [x] Medication orders and management (2) Toxic metabolic encephalopathy Current Visit: Yes Status: Acute Plan to address problem: Resolved, continue current care, (3) DKA (diabetic ketoacidoses) Current Visit: Yes Status: Acute Qualifiers: Diabetes mellitus complication detail: with coma Plan to address problem: DKA resolved, sliding-scale insulin therapy, Accu-Chek, hypoglycemia protocol (4) Rhabdomyolysis Current Visit: Yes Status: Acute Qualifiers: Encounter type: initial encounter Plan to address problem: IV fluid resuscitation therapy, monitor urine output every shift, CK level improving today. Repeat CK in a.m. (5) End stage renal disease Current Visit: Yes Status: Acute Plan to address problem: Hemodialysis catheter placed as per vascular surgery team, dialysis as per renal team. Avoid nephrotoxic agents. (6) DVT prophylaxis Current Visit: Yes Status: Acute Plan to address problem: SCD to bilateral lower extremities while in bed, prophylactic anticoagulation History Interval history: 44 YO Male HD #5 with Sepsis, resolved DKA, improved Toxic Metabolic Encephalopathy, ESRD requiring Hemodialysis, Rhabdomyolysis, Hypothermia. Patient status improved today. Patient is alert and oriented x3 and resting comfortably in bed. Patient denies pain. Patient states that he is feeling b janet today. Patient encouraged to increase oral free water intake as tolerated. No reported nursing events. Patient denies pain. Hospitalist Physical - Constitutional Vitals: Temp Pulse Resp BP Pulse Ox 98.6 F 124 H 24 128/92 95 06/21/20 18:45 06/21/20 20:30 06/21/20 18:45 06/21/20 20:30 06/21/20 18:45 General appearance: Present: no acute distress - EENT Eyes: Present: PERRL, EOM intact ENT: hearing intact - Neck Neck: Present: supple - Respiratory Respiratory effort: normal Respiratory: bilateral: CTA - Cardiovascular Rhythm: regular Heart Sounds: Present: S1 & S2 - Extremities Extremities: no ischemia Peripheral Pulses: within normal limits - Abdominal General gastrointestinal: soft, non-tender, non-distended - Integumentary Integumentary: Present: clear, dry - Psychiatric Psychiatric: appropriate mood/affect, cooperative - Neurologic Neurologic: CNII-XII intact HEART Score - HEART Score Troponin: Troponin T < 0.010 ng/mL (0.00-0.029) 06/17/20 11:24 Results - Labs CBC & Chem 7: 06/21/20 15:29 06/21/20 15:29 Labs: Laboratory Last Values WBC 11.8 K/mm3 (4.5-11.0) H 06/21/20 15:29 RBC 3.51 M/mm3 (3.65-5.03) L 06/21/20 15:29 Hgb 9.3 gm/dl (11.8-15.2) L 06/21/20 15:29 Hct 29.8 % (35.5-45.6) L 06/21/20 15:29 MCV 85 fl (84-94) 06/21/20 15:29 MCH 27 pg (28-32) L 06/21/20 15:29 MCHC 31 % (32-34) L 06/21/20 15:29 RDW 13.9 % (13.2-15.2) 06/21/20 15:29 Plt Count 190 K/mm3 (140-440) 06/21/20 15:29 Lymph % (Auto) 9.9 % (13.4-35.0) L 06/17/20 11:24 Cassia % (Auto) 2.8 % (0.0-7.3) 06/17/20 11:24 Eos % (Auto) 0.0 % (0.0-4.3) 06/17/20 11:24 Baso % (Auto) 0.5 % (0.0-1.8) 06/17/20 11:24 Lymph # (Auto) 1.5 K/mm3 (1.2-5.4) 06/17/20 11:24 Cassia # (Auto) 0.4 K/mm3 (0.0-0.8) 06/17/20 11:24 Eos # (Auto) 0.0 K/mm3 (0.0-0.4) 06/17/20 11:24 Baso # (Auto) 0.1 K/mm3 (0.0-0.1) 06/17/20 11:24 Add Manual Diff Complete 06/21/20 15:29 Total Counted 100 06/21/20 15:29 Seg Neutrophils % 86.8 % (40.0-70.0) H 06/17/20 11:24 Seg Neuts % (Manual) 81.0 % (40.0-70.0) H 06/21/20 15:29 Band Neutrophils % 1.0 % 06/21/20 15:29 Lymphocytes % (Manual) 6.0 % (13.4-35.0) L 06/21/20 15:29 Monocytes % (Manual) 10.0 % (0.0-7.3) H 06/21/20 15:29 Eosinophils % (Manual) 1.0 % (0.0-4.3) 06/20/20 14:47 Basophils % (Manual) 1.0 % (0.0-1.8) 06/20/20 14:47 Metamyelocytes % 2.0 % 06/21/20 15:29 Nucleated RBC % Not Reportable 06/21/20 15:29 Seg Neutrophils # 12.8 K/mm3 (1.8-7.7) H 06/17/20 11:24 Seg Neutrophils # Man 9.6 K/mm3 (1.8-7.7) H 06/21/20 15:29 Band Neutrophils # 0.1 K/mm3 06/21/20 15:29 Lymphocytes # (Manual) 0.7 K/mm3 (1.2-5.4) L 06/21/20 15:29 Abs React Lymphs (Man) 0.0 K/mm3 06/21/20 15:29 Monocytes # (Manual) 1.2 K/mm3 (0.0-0.8) H 06/21/20 15:29 Eosinophils # (Manual) 0.0 K/mm3 (0.0-0.4) 06/21/20 15:29 Basophils # (Manual) 0.0 K/mm3 (0.0-0.1) 06/21/20 15:29 Metamyelocytes # 0.2 K/mm3 06/21/20 15:29 Myelocytes # 0.0 K/mm3 06/21/20 15:29 Promyelocytes # 0.0 K/mm3 06/21/20 15:29 Blast Cells # 0.0 K/mm3 06/21/20 15:29 WBC Morphology Not Reportable 06/21/20 15:29 Hypersegmented Neuts Not Reportable 06/21/20 15:29 Hyposegmented Neuts Not Reportable 06/21/20 15:29 Hypogranular Neuts Not Reportable 06/21/20 15:29 Smudge Cells Not Reportable 06/21/20 15:29 Toxic Granulation Not Reportable 06/21/20 15:29 Toxic Vacuolation Not Reportable 06/21/20 15:29 Dohle Bodies Not Reportable 06/21/20 15:29 Pelger-Huet Anomaly Not Reportable 06/21/20 15:29 Seth Rods Not Reportable 06/21/20 15:29 Platelet Estimate Consistent w auto 06/21/20 15:29 Clumped Platelets Not Reportable 06/21/20 15:29 Plt Clumps, EDTA Not Reportable 06/21/20 15:29 Large Platelets Few 06/21/20 15:29 Giant Platelets Not Reportable 06/21/20 15:29 Platelet Satelliting Not Reportable 06/21/20 15:29 Plt Morphology Comment Not Reportable 06/21/20 15:29 RBC Morphology Not Reportable 06/21/20 15:29 Dimorphic RBCs Not Reportable 06/21/20 15:29 Polychromasia Not Reportable 06/21/20 15:29 Hypochromasia Not Reportable 06/21/20 15:29 Poikilocytosis 1+ 06/21/20 15:29 Anisocytosis 1+ 06/21/20 15:29 Microcytosis Not Reportable 06/21/20 15:29 Macrocytosis Not Reportable 06/21/20 15:29 Spherocytes Not Reportable 06/21/20 15:29 Pappenheimer Bodies Not Reportable 06/21/20 15:29 Sickle Cells Not Reportable 06/21/20 15:29 Target Cells Not Reportable 06/21/20 15:29 Tear Drop Cells Not Reportable 06/21/20 15:29 Ovalocytes Not Reportable 06/21/20 15:29 Helmet Cells Not Reportable 06/21/20 15:29 Yo-Marcy Bodies Not Reportable 06/21/20 15:29 [place] Rings Not Reportable 06/21/20 15:29 Sheridan Cells 1+ 06/21/20 15:29 Bite Cells Not Reportable 06/21/20 15:29 Crenated Cell Not Reportable 06/21/20 15:29 Elliptocytes Not Reportable 06/21/20 15:29 Acanthocytes (Spur) Not Reportable 06/21/20 15:29 Rouleaux Not Reportable 06/21/20 15:29 Hemoglobin C Crystals Not Reportable 06/21/20 15:29 Schistocytes Not Reportable 06/21/20 15:29 Malaria parasites Not Reportable 06/21/20 15:29 Mick Bodies Not Reportable 06/21/20 15:29 Hem Pathologist Commnt No 06/21/20 15:29 PT 22.1 Sec. (12.2-14.9) H 06/17/20 11:24 INR 1.92 (0.87-1.13) H 06/17/20 11:24 APTT 38.9 Sec. (24.2-36.6) H 06/17/20 11:24 VBG pH 7.123 (7.320-7.420) L* 06/17/20 11:24 Sodium 152 mmol/L (137-145) H 06/21/20 15:29 Potassium 6.0 mmol/L (3.6-5.0) H 06/21/20 15:29 Chloride 115.0 mmol/L (98-107) H 06/21/20 15:29 Carbon Dioxide 18 mmol/L (22-30) L 06/21/20 15:29 Anion Gap 25 mmol/L 06/21/20 15:29 BUN 161 mg/dL (9-20) H 06/21/20 15:29 Creatinine 9.7 mg/dL (0.8-1.3) H 06/21/20 15:29 Estimated GFR 7 ml/min 06/21/20 15:29 BUN/Creatinine Ratio 17 % 06/21/20 15:29 Glucose 310 mg/dL (75-100) H 06/21/20 15:29 POC Glucose 320 mg/dL (70-105) H 06/21/20 18:07 Lactic Acid 1.40 mmol/L (0.7-2.0) 06/20/20 05:08 Calcium 7.9 mg/dL (8.4-10.2) L 06/21/20 15:29 Phosphorus 6.70 mg/dL (2.5-4.5) H 06/20/20 19:43 Magnesium 4.50 mg/dL (1.7-2.3) H 06/17/20 15:33 Total Bilirubin 0.60 mg/dL (0.1-1.2) 06/20/20 14:47 AST 149 units/L (5-40) H 06/20/20 14:47 ALT 89 units/L (7-56) H 06/20/20 14:47 Alkaline Phosphatase 60 units/L (35-129) 06/20/20 14:47 Ammonia 56.0 umol/L (25-60) 06/17/20 11:24 Total Creatine Kinase 82507 units/L (55-170) H 06/21/20 15:29 CK-MB (CK-2) 7.9 ng/mL (0.0-4.0) H 06/17/20 11:24 CK-MB (CK-2) Rel Index 0.1 (0-4) 06/17/20 11:24 Troponin T < 0.010 ng/mL (0.00-0.029) 06/17/20 11:24 Total Protein 5.9 g/dL (6.3-8.2) L D 06/20/20 14:47 Albumin 2.3 g/dL (3.9-5) L 06/20/20 14:47 Albumin/Globulin Ratio 0.6 % 06/20/20 14:47 Procalcitonin 8.18 ng/mL (<0.15) 06/18/20 21:36 TSH 0.914 mlU/mL (0.270-4.200) 06/17/20 11:24 Free T4 1.65 ng/dL (0.76-1.46) H 06/17/20 11:24 Urine Color Yellow (Yellow) 06/17/20 Unknown Urine Turbidity Slightly-cloudy (Clear) 06/17/20 Unknown Urine pH 5.0 (5.0-7.0) 06/17/20 Unknown Ur Specific [place] 1.022 (1.003-1.030) 06/17/20 Unknown Urine Protein 100 mg/dl mg/dL (Negative) 06/17/20 Unknown Urine Glucose (UA) >=500 mg/dL (Negative) 06/17/20 Unknown Urine Ketones Neg mg/dL (Negative) 06/17/20 Unknown Urine Blood Lg (Negative) 06/17/20 Unknown Urine Nitrite Neg (Negative) 06/17/20 Unknown Urine Bilirubin Neg (Negative) 06/17/20 Unknown Urine Urobilinogen < 2.0 mg/dL (<2.0) 06/17/20 Unknown Ur Leukocyte Esterase Neg (Negative) 06/17/20 Unknown Urine WBC (Auto) 7.0 /HPF (0.0-6.0) H 06/17/20 Unknown Urine RBC (Auto) 5.0 /HPF (0.0-6.0) 06/17/20 Unknown U Epithel Cells (Auto) < 1.0 /HPF (0-13.0) 06/17/20 Unknown Urine Mucus Few /HPF 06/17/20 Unknown Urine Opiates Screen Presumptive negative 06/19/20 19:00 Urine Methadone Screen Presumptive negative 06/19/20 19:00 Ur Barbiturates Screen Presumptive negative 06/19/20 19:00 Ur Phencyclidine Scrn Presumptive negative 06/19/20 19:00 Ur Amphetamines Screen Presumptive negative 06/19/20 19:00 U Benzodiazepines Scrn Presumptive negative 06/19/20 19:00 Urine Cocaine Screen Presumptive negative 06/19/20 19:00 U Marijuana (THC) Screen Presumptive negative 06/19/20 19:00 Drugs of Abuse Note Disclamer 06/19/20 19:00 Plasma/Serum Alcohol < 0.01 % (0-0.07) 06/17/20 11:24 Hepatitis A IgM Ab Non-reactive (NonReactive) 06/20/20 19:43 Hep Bs Antigen Non-reactive (Negative) 06/20/20 19:43 Hep B Core IgM Ab Non-reactive (NonReactive) 06/20/20 19:43 Hepatitis C Antibody Non-reactive (NonReactive) 06/20/20 19:43 Blood Type B POSITIVE 06/17/20 15:40 Antibody Screen Negative 06/17/20 15:40 Microbiology: Microbiology 06/17/20 15:33 Peripheral/Venous Blood Culture - Preliminary NO GROWTH AFTER 4 DAYS 06/17/20 15:33 Peripheral/Venous Blood Culture - Preliminary NO GROWTH AFTER 4 DAYS Garcia/IV: IV Catheter Type [Left Hand] Peripheral IV IV Catheter Type [Right INT / Saline Lock Antecubital] Active Medications - Current Medications Current Medications: Generic Name Dose Route Start Last Admin Trade Name Freq PRN Reason Stop Dose Admin Acetaminophen 650 mg 06/17/20 13:40 Acetaminophen 325 Mg Tab PO Q6H PRN Pain, Mild (1-3) Albuterol 2.5 mg 06/17/20 13:40 Albuterol 2.5 Mg/3 Ml Nebu IH Q3HRT PRN Shortness Of Breath Dextrose 50 ml 06/19/20 15:28 Dextrose 50% In Water (25gm) 50 Ml Syringe IV Q30MIN PRN Hypoglycemia Protocol Famotidine 20 mg 06/19/20 10:00 06/21/20 09:49 Famotidine 20 Mg Tab PO 20 mg QDAY JERMAINE Administration Heparin Sodium (Porcine) 5,000 unit 06/17/20 22:00 06/21/20 09:49 Heparin 5,000 Unit/1 Ml Vial SUB-Q 5,000 unit Q12HR JERMAINE Administration Hydromorphone HCl 0.25 mg 06/17/20 13:40 Hydromorphone 1 Mg/1 Ml Inj IV Q4H PRN Pain, Moderate (4-6) Levofloxacin/Dextrose 500 mg in 100 mls @ 100 mls/hr 06/21/20 15:00 Levaquin 500mg/100ml IV 06/25/20 15:59 Q48H JERMAINE Sodium Chloride 100 mls @ 999 mls/hr 06/20/20 18:47 Nacl 0.9% IV MARIELLE PRN Hypotension Sodium Bicarbonate 50 meq/ 1,050 mls @ 125 mls/hr 06/21/20 11:00 06/21/20 10:56 Dextrose IV 125 mls/hr DIRECT JERMAINE Administration Insulin Human Lispro 0 unit 06/18/20 16:00 06/21/20 18:09 Insulin Lispro 100 Unit/Ml Vial 3 Ml SUB-Q 11 unit Q6H JERMAINE Administration Protocol Sodium Chloride 10 ml 06/17/20 22:00 06/21/20 09:49 Sodium Chloride 0.9% 10 Ml Flush Syringe IV 10 ml BID JERMAINE Administration Sodium Chloride 10 ml 06/17/20 13:40 Sodium Chloride 0.9% 10 Ml Flush Syringe IV PRN PRN LINE FLUSH
[2020-06-22] MEDS: FREE WATER PO SCH ×6 (02:56→23:40)
[2020-06-22] MEDS: INSULIN LISPRO 100 UNIT/ML VIAL 3 mL SUB-Q SCH ×4 (02:58→16:13)
[2020-06-22] MEDS: SODIUM BICARBONATE 50 MEQ in DEXTROSE 5% IN WATER 1,000 ML IV SCH (03:13)
[2020-06-22 06:24] LABS: Basophils % (Auto) 0.1 % (0.0-1.8); Eosinophils % (Auto) 0.3 % (0.0-4.3); Hematocrit 26.7 % (35.5-45.6); Hemoglobin 8.6 gm/dl (11.8-15.2); Lymphocytes # (Auto) 1.5 K/mm3 (1.2-5.4); Lymphocytes % (Auto) 13.2 % (13.4-35.0); Mean Corpuscular HGB Conc 32 % (32-34); Mean Corpuscular Volume 84 fl (84-94); Monocytes # (Auto) 1.2 K/mm3 (0.0-0.8); Monocytes % (Auto) 10.8 % (0.0-7.3); Platelet Count 174 K/mm3 (140-440); Red Blood Count 3.18 M/mm3 (3.65-5.03); Red Cell Distribution Width 14.2 % (13.2-15.2)
[2020-06-22] MEDS: FAMOTIDINE 20 MG TAB PO SCH (10:45)
[2020-06-22] MEDS: HEPARIN 5,000 UNIT/1 ML VIAL SUB-Q SCH (11:17)
--- NOTE | 2020-06-22 12:02 | Progress Note ---
Assessment and Plan Assessment * Acute kidney injury * Uremia * Severe hypernatremia * Hyperkalemia * Rhabdomyolysis, severe * Acidosis * Acute encephalopathy * Sepsis * DKA Recommendations * Plan for HD today again, lytes improving after hd * Continue ivfs * S/p Garcia, strict I's/O * Trend CPK daily * Check ionized calcium and phosphorus * F/u renal ultrasound * add sodium bicarb to alkalize urine in rhabdo * DKA protocol per primary * Renally dose medications * Avoid nephrotoxins Subjective Date of service: 06/22/20 Principal diagnosis: DKA; Ac encephalopathy; Severe sepsis; Rhabdomyolysis; YUNI. Interval history: resting in bed today Objective - Exam Narrative Exam: Constitutional: No acute distress Head: Normocephalic/atraumatic Neck: Supple Lungs: Clear to auscultation bilaterally Cardiovascular: RRR, no M/R/G Abdomen: Soft, nontender, NABS Back, nontender Extremities: No edema, pulses within normal limits Skin: Intact, no rash Neuro: Tremulous, oriented only to self and time - Vital Signs Vital signs: Vital Signs - 12hr 06/22/20 06/22/20 06/22/20 01:00 02:00 03:00 Pulse Rate 121 H 118 H 121 H Respiratory 28 H 16 17 Rate Blood Pressure 119/76 132/80 130/82 O2 Sat by Pulse 93 95 93 Oximetry 06/22/20 06/22/20 06/22/20 04:00 05:00 06:00 Pulse Rate 120 H 124 H 122 H Respiratory 20 27 H 22 Rate Blood Pressure 132/81 114/62 131/84 O2 Sat by Pulse 94 93 94 Oximetry 06/22/20 06/22/20 07:00 08:00 Pulse Rate 122 H 120 H Respiratory 23 18 Rate Blood Pressure 116/70 123/77 O2 Sat by Pulse 93 94 Oximetry - Lab 06/22/20 05:51 06/22/20 05:51 Most recent lab results Calcium 8.0 mg/dL (8.4-10.2) L 06/22/20 05:51 Phosphorus 6.70 mg/dL (2.5-4.5) H 06/20/20 19:43 Magnesium 4.50 mg/dL (1.7-2.3) H 06/17/20 15:33 Medications & Allergies - Medications Allergies/Adverse Reactions: Allergies No Known Allergies Allergy (Unverified 06/21/20 20:38) Active Medications: Generic Name Dose Route Start Last Admin Trade Name Freq PRN Reason Stop Dose Admin Acetaminophen 650 mg 06/17/20 13:40 Acetaminophen 325 Mg Tab PO Q6H PRN Pain, Mild (1-3) Albuterol 2.5 mg 06/17/20 13:40 Albuterol 2.5 Mg/3 Ml Nebu IH Q3HRT PRN Shortness Of Breath Dextrose 50 ml 06/19/20 15:28 Dextrose 50% In Water (25gm) 50 Ml Syringe IV Q30MIN PRN Hypoglycemia Protocol Famotidine 20 mg 06/19/20 10:00 06/22/20 10:45 Famotidine 20 Mg Tab PO 20 mg QDAY JERMAINE Administration Heparin Sodium (Porcine) 5,000 unit 06/17/20 22:00 06/22/20 11:17 Heparin 5,000 Unit/1 Ml Vial SUB-Q 5,000 unit Q12HR JERMAINE Administration Hydromorphone HCl 0.25 mg 06/17/20 13:40 Hydromorphone 1 Mg/1 Ml Inj IV Q4H PRN Pain, Moderate (4-6) Levofloxacin/Dextrose 500 mg in 100 mls @ 100 mls/hr 06/21/20 15:00 06/21/20 22:00 Levaquin 500mg/100ml IV 06/25/20 15:59 100 mls/hr Q48H JERMAINE Administration Sodium Chloride 100 mls @ 999 mls/hr 06/20/20 18:47 Nacl 0.9% IV MARIELLE PRN Hypotension Sodium Bicarbonate 50 meq/ 1,050 mls @ 125 mls/hr 06/21/20 11:00 06/22/20 03:13 Dextrose IV 125 mls/hr DIRECT JERMAINE Administration Insulin Human Lispro 0 unit 06/18/20 16:00 06/22/20 10:45 Insulin Lispro 100 Unit/Ml Vial 3 Ml SUB-Q 15 unit Q6H JERMAINE Administration Protocol Sodium Chloride 10 ml 06/17/20 22:00 06/21/20 23:28 Sodium Chloride 0.9% 10 Ml Flush Syringe IV 10 ml BID JERMAINE Administration Sodium Chloride 10 ml 06/17/20 13:40 Sodium Chloride 0.9% 10 Ml Flush Syringe IV PRN PRN LINE FLUSH
--- NOTE | 2020-06-22 14:52 | Progress Note ---
Assessment and Plan Diabetic ketoacidosis. Acute toxic metabolic encephalopathy. Severe sepsis at presentation. Leukocytosis, presumably stress leukocytosis. Hypernatremia. Rhabdomyolysis. Acute kidney injury - continue HD/UF for toxin and volume control - supplemental oxygen to keep O2 sats > 90% - prn Bronchodilators (INÉS) with pulm hygiene per RT - continue to avoid nephrotoxins, renally dose all medications - mobility protocols to prevent pressure ulcers - PT/OT as tolerated - prn analgesia per pain score - continue accuchecks with glycemic control per SSI for target blood glucose < 180 mg/dL - GI & VTE prophylaxis - Flu & pneumovax per protocol - continue other care per attending / other consultants ... re-evaluate in am & prn Subjective Date of service: 06/22/20 Principal diagnosis: DKA; Ac encephalopathy; Severe sepsis; Rhabdomyolysis; YUNI. Interval history: Patient is seen today for: Diabetic ketoacidosis; Acute toxic metabolic encephalopathy; Severe sepsis; Rhabdomyolysis; Acute kidney injury Seen and examined at bedside; 24hour events reviewed; nursing and respiratory care staff consulted; no adverse overnight events reported to me; resting in bed; tolerated dialysis; No N/V/F/C Objective Vital Signs - 12hr 06/22/20 06/22/20 06/22/20 03:00 04:00 05:00 Temperature Pulse Rate 121 H 120 H 124 H Respiratory 17 20 27 H Rate Blood Pressure 130/82 132/81 114/62 O2 Sat by Pulse 93 94 93 Oximetry O2 Sat by Pulse Oximetry [ Anterior Bilateral Throughout] 06/22/20 06/22/20 06/22/20 06:00 07:00 08:00 Temperature Pulse Rate 122 H 122 H 120 H Respiratory 22 23 18 Rate Blood Pressure 131/84 116/70 123/77 O2 Sat by Pulse 94 93 94 Oximetry O2 Sat by Pulse Oximetry [ Anterior Bilateral Throughout] 06/22/20 06/22/20 06/22/20 13:00 13:10 13:15 Temperature 98.3 F Pulse Rate 128 H 128 H 127 H Respiratory 16 Rate Blood Pressure 111/77 111/77 118/77 O2 Sat by Pulse Oximetry O2 Sat by Pulse 95 Oximetry [ Anterior Bilateral Throughout] 06/22/20 06/22/20 06/22/20 13:30 13:45 14:00 Temperature Pulse Rate 123 H 123 H 123 H Respiratory Rate Blood Pressure 117/78 123/75 120/78 O2 Sat by Pulse Oximetry O2 Sat by Pulse Oximetry [ Anterior Bilateral Throughout] Constitutional: no acute distress, other (middle aged male with normal respiratory effort at rest) Eyes: non-icteric ENT: oropharynx moist Neck: supple, no lymphadenopathy, no JVD Effort: normal Ascultation: Bilateral: clear Percussion: Bilateral: not dull Cardiovascular: regular rate and rhythm Gastrointestinal: normoactive bowel sounds, soft, non-tender, non-distended Integumentary: rash (xeroderma) Extremities: no cyanosis, no edema, pulses normal, no ischemia or petechiae Neurologic: non-focal exam, pupils equal and round, CN II-XII normal, motor strength normal and Psychiatric: mood appropriate, affect normal CBC and BMP: 06/24/20 06:35 06/24/20 06:35 ABG, PT/INR, D-dimer: PT/INR, D-dimer PT 22.1 Sec. (12.2-14.9) H 06/17/20 11:24 INR 1.92 (0.87-1.13) H 06/17/20 11:24 Abnormal lab findings: Abnormal Labs 06/17/20 06/17/20 06/17/20 11:24 11:24 11:24 WBC 14.7 H RBC 5.38 H Hgb Hct 49.1 H MCH 27 L MCHC 29 L Lymph % (Auto) 9.9 L [place] % (Auto) [place] # (Auto) Seg Neutrophils % 86.8 H Seg Neuts % (Manual) Lymphocytes % (Manual) Monocytes % (Manual) Seg Neutrophils # 12.8 H Seg Neutrophils # Man Lymphocytes # (Manual) Monocytes # (Manual) Basophils # (Manual) PT 22.1 H INR 1.92 H APTT 38.9 H VBG pH Sodium 149 H Potassium Chloride Carbon Dioxide BUN 84 H Creatinine 3.6 H Glucose 1394 H* POC Glucose Lactic Acid Calcium Phosphorus Magnesium AST 59 H ALT Total Creatine Kinase 5507 H CK-MB (CK-2) 7.9 H Total Protein 9.0 H Albumin 3.7 L Free T4 Urine WBC (Auto) 06/17/20 06/17/20 06/17/20 11:24 11:24 11:24 WBC RBC Hgb Hct MCH MCHC Lymph % (Auto) [place] % (Auto) [place] # (Auto) Seg Neutrophils % Seg Neuts % (Manual) Lymphocytes % (Manual) Monocytes % (Manual) Seg Neutrophils # Seg Neutrophils # Man Lymphocytes # (Manual) Monocytes # (Manual) Basophils # (Manual) PT INR APTT VBG pH 7.123 L* Sodium Potassium Chloride Carbon Dioxide BUN Creatinine Glucose POC Glucose Lactic Acid Calcium Phosphorus Magnesium 6.20 H AST ALT Total Creatine Kinase CK-MB (CK-2) Total Protein Albumin Free T4 1.65 H Urine WBC (Auto) 06/17/20 06/17/20 06/17/20 15:27 15:33 15:33 WBC RBC Hgb Hct MCH MCHC Lymph % (Auto) [place] % (Auto) [place] # (Auto) Seg Neutrophils % Seg Neuts % (Manual) Lymphocytes % (Manual) Monocytes % (Manual) Seg Neutrophils # Seg Neutrophils # Man Lymphocytes # (Manual) Monocytes # (Manual) Basophils # (Manual) PT INR APTT VBG pH Sodium Potassium Chloride Carbon Dioxide BUN Creatinine Glucose 1086 H* POC Glucose > 600 H Lactic Acid Calcium Phosphorus 9.40 H Magnesium 4.50 H AST ALT Total Creatine Kinase CK-MB (CK-2) Total Protein Albumin Free T4 Urine WBC (Auto) 06/17/20 06/17/20 06/17/20 16:58 18:39 18:41 WBC RBC Hgb Hct MCH MCHC Lymph % (Auto) [place] % (Auto) [place] # (Auto) Seg Neutrophils % Seg Neuts % (Manual) Lymphocytes % (Manual) Monocytes % (Manual) Seg Neutrophils # Seg Neutrophils # Man Lymphocytes # (Manual) Monocytes # (Manual) Basophils # (Manual) PT INR APTT VBG pH Sodium 155 H 154 H Potassium 3.0 L D 2.8 L* Chloride 114.0 H 117.3 H Carbon Dioxide 20 L 19 L BUN 83 H 84 H Creatinine 3.2 H 3.3 H Glucose 1046 H* 830 H* POC Glucose > 600 H Lactic Acid Calcium 7.8 L D 7.9 L Phosphorus Magnesium AST ALT Total Creatine Kinase CK-MB (CK-2) Total Protein Albumin Free T4 Urine WBC (Auto) 06/17/20 06/17/20 06/17/20 21:15 21:15 Unknown WBC RBC Hgb Hct MCH MCHC Lymph % (Auto) [place] % (Auto) [place] # (Auto) Seg Neutrophils % Seg Neuts % (Manual) Lymphocytes % (Manual) Monocytes % (Manual) Seg Neutrophils # Seg Neutrophils # Man Lymphocytes # (Manual) Monocytes # (Manual) Basophils # (Manual) PT INR APTT VBG pH Sodium 157 H Potassium 2.9 L* Chloride 118.8 H Carbon Dioxide 19 L BUN 84 H Creatinine 3.3 H Glucose 666 H* POC Glucose Lactic Acid 2.80 H* Calcium 7.8 L Phosphorus Magnesium AST ALT Total Creatine Kinase CK-MB (CK-2) Total Protein Albumin Free T4 Urine WBC (Auto) 7.0 H 06/18/20 06/18/20 06/18/20 00:10 00:20 03:20 WBC RBC Hgb Hct MCH MCHC Lymph % (Auto) [place] % (Auto) [place] # (Auto) Seg Neutrophils % Seg Neuts % (Manual) Lymphocytes % (Manual) Monocytes % (Manual) Seg Neutrophils # Seg Neutrophils # Man Lymphocytes # (Manual) Monocytes # (Manual) Basophils # (Manual) PT INR APTT VBG pH Sodium 160 H Potassium 3.0 L Chloride 118.8 H Carbon Dioxide BUN 89 H Creatinine 3.8 H Glucose 650 H* POC Glucose 291 H Lactic Acid 2.40 H* Calcium 7.8 L Phosphorus Magnesium AST ALT Total Creatine Kinase CK-MB (CK-2) Total Protein Albumin Free T4 Urine WBC (Auto) 06/18/20 06/18/20 06/18/20 05:19 06:27 06:27 WBC RBC Hgb Hct MCH MCHC Lymph % (Auto) [place] % (Auto) [place] # (Auto) Seg Neutrophils % Seg Neuts % (Manual) Lymphocytes % (Manual) Monocytes % (Manual) Seg Neutrophils # Seg Neutrophils # Man Lymphocytes # (Manual) Monocytes # (Manual) Basophils # (Manual) PT INR APTT VBG pH Sodium 167 H* Potassium 3.4 L Chloride 126.4 H Carbon Dioxide 21 L BUN 99 H Creatinine 4.5 H Glucose 291 H POC Glucose 276 H Lactic Acid 2.80 H* Calcium 8.1 L Phosphorus Magnesium AST ALT Total Creatine Kinase CK-MB (CK-2) Total Protein Albumin Free T4 Urine WBC (Auto) 06/18/20 06/18/20 06/18/20 06:45 08:40 08:49 WBC RBC Hgb Hct MCH MCHC Lymph % (Auto) [place] % (Auto) [place] # (Auto) Seg Neutrophils % Seg Neuts % (Manual) Lymphocytes % (Manual) Monocytes % (Manual) Seg Neutrophils # Seg Neutrophils # Man Lymphocytes # (Manual) Monocytes # (Manual) Basophils # (Manual) PT INR APTT VBG pH Sodium Potassium Chloride Carbon Dioxide BUN Creatinine Glucose POC Glucose 215 H 182 H Lactic Acid 2.20 H* Calcium Phosphorus Magnesium AST ALT Total Creatine Kinase CK-MB (CK-2) Total Protein Albumin Free T4 Urine WBC (Auto) 06/18/20 06/18/20 06/18/20 10:01 10:28 11:40 WBC RBC Hgb Hct MCH MCHC Lymph % (Auto) [place] % (Auto) [place] # (Auto) Seg Neutrophils % Seg Neuts % (Manual) Lymphocytes % (Manual) Monocytes % (Manual) Seg Neutrophils # Seg Neutrophils # Man Lymphocytes # (Manual) Monocytes # (Manual) Basophils # (Manual) PT INR APTT VBG pH Sodium 161 H* Potassium Chloride 125.4 H Carbon Dioxide 21 L BUN 98 H Creatinine 5.0 H Glucose 247 H POC Glucose 217 H Lactic Acid 3.20 H* Calcium 7.8 L Phosphorus Magnesium AST ALT Total Creatine Kinase CK-MB (CK-2) Total Protein Albumin Free T4 Urine WBC (Auto) 06/18/20 06/18/20 06/18/20 11:40 11:40 12:33 WBC RBC Hgb Hct MCH MCHC Lymph % (Auto) [place] % (Auto) [place] # (Auto) Seg Neutrophils % Seg Neuts % (Manual) Lymphocytes % (Manual) Monocytes % (Manual) Seg Neutrophils # Seg Neutrophils # Man Lymphocytes # (Manual) Monocytes # (Manual) Basophils # (Manual) PT INR APTT VBG pH Sodium Potassium Chloride Carbon Dioxide BUN Creatinine Glucose POC Glucose 199 H Lactic Acid 2.40 H* Calcium Phosphorus Magnesium AST ALT Total Creatine Kinase 03271 H CK-MB (CK-2) Total Protein Albumin Free T4 Urine WBC (Auto) 06/18/20 06/18/20 06/18/20 13:57 16:27 21:58 WBC RBC Hgb Hct MCH MCHC Lymph % (Auto) [place] % (Auto) [place] # (Auto) Seg Neutrophils % Seg Neuts % (Manual) Lymphocytes % (Manual) Monocytes % (Manual) Seg Neutrophils # Seg Neutrophils # Man Lymphocytes # (Manual) Monocytes # (Manual) Basophils # (Manual) PT INR APTT VBG pH Sodium Potassium Chloride Carbon Dioxide BUN Creatinine Glucose POC Glucose 198 H 185 H 281 H Lactic Acid Calcium Phosphorus Magnesium AST ALT Total Creatine Kinase CK-MB (CK-2) Total Protein Albumin Free T4 Urine WBC (Auto) 06/19/20 06/19/20 06/19/20 00:55 00:55 04:25 WBC RBC Hgb Hct MCH MCHC Lymph % (Auto) [place] % (Auto) [place] # (Auto) Seg Neutrophils % Seg Neuts % (Manual) Lymphocytes % (Manual) Monocytes % (Manual) Seg Neutrophils # Seg Neutrophils # Man Lymphocytes # (Manual) Monocytes # (Manual) Basophils # (Manual) PT INR APTT VBG pH Sodium 164 H* Potassium Chloride 125.8 H Carbon Dioxide 21 L BUN 100 H Creatinine 6.4 H Glucose 370 H POC Glucose 366 H Lactic Acid 2.30 H* Calcium 7.4 L Phosphorus Magnesium AST ALT Total Creatine Kinase CK-MB (CK-2) Total Protein Albumin Free T4 Urine WBC (Auto) 06/19/20 06/19/20 06/19/20 11:49 14:24 15:44 WBC RBC Hgb Hct MCH MCHC Lymph % (Auto) [place] % (Auto) [place] # (Auto) Seg Neutrophils % Seg Neuts % (Manual) Lymphocytes % (Manual) Monocytes % (Manual) Seg Neutrophils # Seg Neutrophils # Man Lymphocytes # (Manual) Monocytes # (Manual) Basophils # (Manual) PT INR APTT VBG pH Sodium Potassium Chloride Carbon Dioxide BUN Creatinine Glucose POC Glucose 411 H Lactic Acid 2.90 H* Calcium Phosphorus Magnesium AST ALT Total Creatine Kinase 72314 H CK-MB (CK-2) Total Protein Albumin Free T4 Urine WBC (Auto) 06/19/20 06/19/20 06/19/20 18:41 21:44 22:16 WBC RBC Hgb Hct MCH MCHC Lymph % (Auto) [place] % (Auto) [place] # (Auto) Seg Neutrophils % Seg Neuts % (Manual) Lymphocytes % (Manual) Monocytes % (Manual) Seg Neutrophils # Seg Neutrophils # Man Lymphocytes # (Manual) Monocytes # (Manual) Basophils # (Manual) PT INR APTT VBG pH Sodium Potassium Chloride Carbon Dioxide BUN Creatinine Glucose POC Glucose 404 H 333 H Lactic Acid 2.50 H* Calcium Phosphorus Magnesium AST ALT Total Creatine Kinase CK-MB (CK-2) Total Protein Albumin Free T4 Urine WBC (Auto) 06/20/20 06/20/20 06/20/20 00:12 04:37 05:08 WBC RBC Hgb Hct MCH MCHC Lymph % (Auto) [place] % (Auto) [place] # (Auto) Seg Neutrophils % Seg Neuts % (Manual) Lymphocytes % (Manual) Monocytes % (Manual) Seg Neutrophils # Seg Neutrophils # Man Lymphocytes # (Manual) Monocytes # (Manual) Basophils # (Manual) PT INR APTT VBG pH Sodium Potassium Chloride Carbon Dioxide BUN Creatinine Glucose POC Glucose 318 H Lactic Acid 2.10 H* Calcium Phosphorus Magnesium AST ALT Total Creatine Kinase 79738 H CK-MB (CK-2) Total Protein Albumin Free T4 Urine WBC (Auto) 06/20/20 06/20/20 06/20/20 10:19 14:47 14:47 WBC 15.1 H RBC Hgb 10.2 L Hct 32.0 L MCH 27 L MCHC Lymph % (Auto) [place] % (Auto) [place] # (Auto) Seg Neutrophils % Seg Neuts % (Manual) 79.0 H Lymphocytes % (Manual) 12.0 L Monocytes % (Manual) Seg Neutrophils # Seg Neutrophils # Man 11.9 H Lymphocytes # (Manual) Monocytes # (Manual) 1.1 H Basophils # (Manual) 0.2 H PT INR APTT VBG pH Sodium 156 H Potassium 5.9 H D Chloride 118.3 H Carbon Dioxide 20 L BUN 159 H Creatinine 9.4 H Glucose 283 H POC Glucose 220 H Lactic Acid Calcium 7.7 L Phosphorus Magnesium AST 149 H ALT 89 H Total Creatine Kinase CK-MB (CK-2) Total Protein 5.9 L D Albumin 2.3 L Free T4 Urine WBC (Auto) 06/20/20 06/20/20 06/20/20 17:02 19:43 22:01 WBC RBC Hgb Hct MCH MCHC Lymph % (Auto) [place] % (Auto) [place] # (Auto) Seg Neutrophils % Seg Neuts % (Manual) Lymphocytes % (Manual) Monocytes % (Manual) Seg Neutrophils # Seg Neutrophils # Man Lymphocytes # (Manual) Monocytes # (Manual) Basophils # (Manual) PT INR APTT VBG pH Sodium Potassium Chloride Carbon Dioxide BUN Creatinine Glucose POC Glucose 248 H 268 H Lactic Acid Calcium Phosphorus 6.70 H Magnesium AST ALT Total Creatine Kinase CK-MB (CK-2) Total Protein Albumin Free T4 Urine WBC (Auto) 06/21/20 06/21/20 06/21/20 02:22 04:28 09:45 WBC RBC Hgb Hct MCH MCHC Lymph % (Auto) [place] % (Auto) [place] # (Auto) Seg Neutrophils % Seg Neuts % (Manual) Lymphocytes % (Manual) Monocytes % (Manual) Seg Neutrophils # Seg Neutrophils # Man Lymphocytes # (Manual) Monocytes # (Manual) Basophils # (Manual) PT INR APTT VBG pH Sodium Potassium Chloride Carbon Dioxide BUN Creatinine Glucose POC Glucose 248 H 237 H 234 H Lactic Acid Calcium Phosphorus Magnesium AST ALT Total Creatine Kinase CK-MB (CK-2) Total Protein Albumin Free T4 Urine WBC (Auto) 06/21/20 06/21/20 06/21/20 15:29 15:29 15:29 WBC 11.8 H RBC 3.51 L Hgb 9.3 L Hct 29.8 L MCH 27 L MCHC 31 L Lymph % (Auto) [place] % (Auto) [place] # (Auto) Seg Neutrophils % Seg Neuts % (Manual) 81.0 H Lymphocytes % (Manual) 6.0 L Monocytes % (Manual) 10.0 H Seg Neutrophils # Seg Neutrophils # Man 9.6 H Lymphocytes # (Manual) 0.7 L Monocytes # (Manual) 1.2 H Basophils # (Manual) PT INR APTT VBG pH Sodium 152 H Potassium 6.0 H Chloride 115.0 H Carbon Dioxide 18 L BUN 161 H Creatinine 9.7 H Glucose 310 H POC Glucose Lactic Acid Calcium 7.9 L Phosphorus Magnesium AST ALT Total Creatine Kinase 89241 H CK-MB (CK-2) Total Protein Albumin Free T4 Urine WBC (Auto) 06/21/20 06/22/20 06/22/20 18:07 02:33 05:51 WBC 11.3 H RBC 3.18 L Hgb 8.6 L Hct 26.7 L MCH 27 L MCHC Lymph % (Auto) 13.2 L [place] % (Auto) 10.8 H [place] # (Auto) 1.2 H Seg Neutrophils % 75.6 H Seg Neuts % (Manual) Lymphocytes % (Manual) Monocytes % (Manual) Seg Neutrophils # 8.5 H Seg Neutrophils # Man Lymphocytes # (Manual) Monocytes # (Manual) Basophils # (Manual) PT INR APTT VBG pH Sodium Potassium Chloride Carbon Dioxide BUN Creatinine Glucose POC Glucose 320 H 302 H Lactic Acid Calcium Phosphorus Magnesium AST ALT Total Creatine Kinase CK-MB (CK-2) Total Protein Albumin Free T4 Urine WBC (Auto) 06/22/20 06/22/20 06/22/20 05:51 10:57 11:47 WBC RBC Hgb Hct MCH MCHC Lymph % (Auto) [place] % (Auto) [place] # (Auto) Seg Neutrophils % Seg Neuts % (Manual) Lymphocytes % (Manual) Monocytes % (Manual) Seg Neutrophils # Seg Neutrophils # Man Lymphocytes # (Manual) Monocytes # (Manual) Basophils # (Manual) PT INR APTT VBG pH Sodium Potassium Chloride Carbon Dioxide BUN 102 H Creatinine 7.1 H Glucose 357 H POC Glucose 438 H Lactic Acid Calcium 8.0 L Phosphorus Magnesium AST ALT Total Creatine Kinase 8530 H CK-MB (CK-2) Total Protein Albumin Free T4 Urine WBC (Auto) Allied health notes reviewed: nursing
--- NOTE | 2020-06-22 17:01 | Ultrasound Report ---
ULTRASOUND RENAL INDICATION / CLINICAL INFORMATION: YUNI. COMPARISON: None available. FINDINGS: RIGHT KIDNEY: Length = 11.0 cm. - Echogenicity: Normal. - Cortical Thickness: Normal. - Hydronephrosis: None. - Cyst or mass: No significant abnormality. - Stones: None seen. LEFT KIDNEY: Length = 13.6 cm. - Echogenicity: Normal. - Cortical Thickness: Normal. - Hydronephrosis: None. - Cyst or mass: No significant abnormality. - Stones: None seen. URINARY BLADDER: No significant abnormality. FREE FLUID: None. ADDITIONAL FINDINGS: None. IMPRESSION: 1. No significant abnormality. Signer Name: Ross Ervin MD Signed: 06/22/2020 4:57 PM Workstation Name: [id number]
[2020-06-23] MEDS: INSULIN LISPRO 100 UNIT/ML VIAL 3 mL SUB-Q SCH ×5 (02:20→21:27)
[2020-06-23] MEDS: HEPARIN 5,000 UNIT/1 ML VIAL SUB-Q SCH ×3 (02:20→21:27)
[2020-06-23 06:03] LABS: Basophils % (Auto) 0.2 % (0.0-1.8); Eosinophils % (Auto) 0.3 % (0.0-4.3); Hematocrit 24.8 % (35.5-45.6); Lymphocytes # (Auto) 1.3 K/mm3 (1.2-5.4); Mean Corpuscular HGB Conc 32 % (32-34); Mean Corpuscular Volume 85 fl (84-94); Monocytes # (Auto) 1.5 K/mm3 (0.0-0.8); Monocytes % (Auto) 14.1 % (0.0-7.3); Platelet Count 165 K/mm3 (140-440); Red Blood Count 2.93 M/mm3 (3.65-5.03); Red Cell Distribution Width 13.7 % (13.2-15.2)
[2020-06-23 06:14] LABS: Calcium 7.8 mg/dL (8.4-10.2)
[2020-06-23] MEDS ORDERED: INSULIN GLARGINE 100 UNITS/ML SUB-Q SCH (08:00)
--- NOTE | 2020-06-23 08:53 | Progress Note ---
Assessment and Plan Critical care statement The high probability of a clinically significant, sudden or life threatening deterioration of the [cardiac, neuro, pulmonary, renal, endocrine] system(s) required my full and direct attention, intervention and personal management. The aggregate critical care time was [31] minutes. This time is in addition to time spent performing reported procedures but includes the following: [x] Data Review and interpretation [x] Patient assessment and monitoring of vital signs [x] Documentation [x] Medication orders and management - Patient Problems (1) Sepsis Current Visit: Yes Status: Acute Plan to address problem: Sepsis protocol: CBC, CMP, chest x-ray, urinalysis, IV fluid resuscitation therapy, IV antibiotic therapy, serial lactic acid, blood culture, monitor urine output every shift, monitor fluid balance, maintain mean arterial pressure greater than or equal to 65, (2) Toxic metabolic encephalopathy Current Visit: Yes Status: Acute Plan to address problem: Resolved, continue current care, (3) DKA (diabetic ketoacidoses) Current Visit: Yes Status: Acute Qualifiers: Diabetes mellitus complication detail: with coma Plan to address problem: DKA resolved, sliding-scale insulin therapy, Accu-Chek, hypoglycemia protocol (4) Rhabdomyolysis Current Visit: Yes Status: Acute Qualifiers: Encounter type: initial encounter Plan to address problem: IV fluid resuscitation therapy, monitor urine output every shift, CK level improving today. Repeat CK in a.m. (5) End stage renal disease Current Visit: Yes Status: Acute Plan to address problem: Hemodialysis catheter placed as per vascular surgery team, dialysis as per renal team. Avoid nephrotoxic agents. (6) DVT prophylaxis Current Visit: Yes Status: Acute Plan to address problem: SCD to bilateral lower extremities while in bed, prophylactic anticoagulation Subjective Date of service: 06/22/20 Principal diagnosis: DKA; Ac encephalopathy; Severe sepsis; Rhabdomyolysis; YUNI. Interval history: History Interval history: 44 YO Male HD #5 with Sepsis, resolved DKA, improved Toxic Metabolic Encephalopathy, ESRD requiring Hemodialysis, Rhabdomyolysis, Hypothermia. Pat ient status improved today. Patient is alert and oriented x3 and resting comfortably in bed. Patient denies pain. Patient states that he is feeling better today. Patient encouraged to increase oral free water intake as tolerated. No reported nursing events. Patient denies pain. Objective - Constitutional Vitals: Vital Signs - 12hr 06/22/20 06/22/20 06/22/20 21:00 22:00 23:00 Pulse Rate 127 H 129 H 128 H Respiratory 29 H 39 H 25 H Rate Blood Pressure 119/66 118/77 111/69 O2 Sat by Pulse 92 88 91 Oximetry 06/23/20 06/23/20 06/23/20 00:00 01:00 02:00 Pulse Rate 133 H 134 H 133 H Respiratory 22 28 H 27 H Rate Blood Pressure 115/70 102/60 106/71 O2 Sat by Pulse 94 91 93 Oximetry 06/23/20 06/23/20 06/23/20 03:00 07:15 07:30 Pulse Rate 132 H 116 H 119 H Respiratory 26 H 25 H 28 H Rate Blood Pressure 112/68 105/65 102/70 O2 Sat by Pulse 97 94 Oximetry 06/23/20 06/23/20 08:00 08:30 Pulse Rate 114 H 115 H Respiratory 22 24 Rate Blood Pressure 111/68 130/79 O2 Sat by Pulse Oximetry General appearance: Present: no acute distress, well-nourished - EENT Eyes: PERRL, EOM intact ENT: hearing intact, clear oral mucosa Ears: bilateral: normal - Neck Neck: supple, normal ROM - Respiratory Respiratory effort: normal Respiratory: bilateral: CTA - Breasts Breasts: normal - Cardiovascular Heart rate: 78 Rhythm: regular Heart Sounds: Present: S1 & S2. Absent: gallop, rub Extremities: pulses intact, No edema, normal color, Full ROM - Gastrointestinal General gastrointestinal: Present: soft, non-tender, non-distended, normal bowel sounds - Genitourinary Male genitourinary: normal - Integumentary Integumentary: clear, warm, dry - Musculoskeletal Musculoskeletal: 1, strength equal bilaterally - Neurologic Neurologic: moves all extremities - Psychiatric Psychiatric: memory intact, appropriate mood/affect, intact judgment & insight - Labs CBC & Chem 7: 06/23/20 05:13 06/23/20 05:13 Labs: Abnormal lab results 06/22/20 06/22/20 06/23/20 Range/Units 10:57 11:47 02:12 RBC (3.65-5.03) M/mm3 Hgb (11.8-15.2) gm/dl Hct (35.5-45.6) % MCH (28-32) pg Lymph % (Auto) (13.4-35.0) % [place] % (Auto) (0.0-7.3) % [place] # (Auto) (0.0-0.8) K/mm3 Seg Neutrophils % (40.0-70.0) % BUN (9-20) mg/dL Creatinine (0.8-1.3) mg/dL Glucose (75-100) mg/dL POC Glucose 438 H 417 H (70-105) mg/dL Calcium (8.4-10.2) mg/dL Total Creatine Kinase 8530 H (55-170) units/L 06/23/20 06/23/20 06/23/20 Range/Units 04:38 05:13 05:13 RBC 2.93 L (3.65-5.03) M/mm3 Hgb 8.0 L (11.8-15.2) gm/dl Hct 24.8 L (35.5-45.6) % MCH 27 L (28-32) pg Lymph % (Auto) 13.0 L (13.4-35.0) % [place] % (Auto) 14.1 H (0.0-7.3) % [place] # (Auto) 1.5 H (0.0-0.8) K/mm3 Seg Neutrophils % 72.4 H (40.0-70.0) % BUN 90 H (9-20) mg/dL Creatinine 6.2 H (0.8-1.3) mg/dL Glucose 424 H (75-100) mg/dL POC Glucose 390 H (70-105) mg/dL Calcium 7.8 L (8.4-10.2) mg/dL Total Creatine Kinase (55-170) units/L HEART Score - HEART Score Troponin: Troponin T < 0.010 ng/mL (0.00-0.029) 06/17/20 11:24
--- NOTE | 2020-06-23 09:31 | Progress Note ---
Assessment and Plan Assessment * Acute kidney injury * Uremia * Severe hypernatremia * Hyperkalemia * Rhabdomyolysis, severe * Acidosis * Acute encephalopathy * Sepsis * DKA Recommendations * Plan for HD in AM, lytes improving after hd * Continue ivfs to alkalize urine in rhabdo * S/p Garcia, strict I's/O * Trend CPK daily, improving * F/u renal ultrasound * continue sodium bicarb to alkalize urine in rhabdo * DKA protocol per primary * Renally dose medications * Avoid nephrotoxins Subjective Date of service: 06/23/20 Principal diagnosis: DKA; Ac encephalopathy; Severe sepsis; Rhabdomyolysis; YUNI. Interval history: resting in bed today Objective - Exam Narrative Exam: Constitutional: No acute distress Head: Normocephalic/atraumatic Neck: Supple Lungs: Clear to auscultation bilaterally Cardiovascular: RRR, no M/R/G Abdomen: Soft, nontender, NABS Back, nontender Extremities: No edema, pulses within normal limits Skin: Intact, no rash Neuro: Tremulous, oriented only to self and time - Vital Signs Vital signs: Vital Signs - 12hr 06/22/20 06/22/20 06/23/20 22:00 23:00 00:00 Pulse Rate 129 H 128 H 133 H Respiratory 39 H 25 H 22 Rate Blood Pressure 118/77 111/69 115/70 O2 Sat by Pulse 88 91 94 Oximetry 06/23/20 06/23/20 06/23/20 01:00 02:00 03:00 Pulse Rate 134 H 133 H 132 H Respiratory 28 H 27 H 26 H Rate Blood Pressure 102/60 106/71 112/68 O2 Sat by Pulse 91 93 97 Oximetry 06/23/20 06/23/20 06/23/20 07:15 07:30 08:00 Pulse Rate 116 H 119 H 114 H Respiratory 25 H 28 H 22 Rate Blood Pressure 105/65 102/70 111/68 O2 Sat by Pulse 94 Oximetry 06/23/20 06/23/20 08:30 09:00 Pulse Rate 115 H 117 H Respiratory 24 25 H Rate Blood Pressure 130/79 124/77 O2 Sat by Pulse Oximetry - Lab 06/23/20 05:13 06/23/20 05:13 Most recent lab results Calcium 7.8 mg/dL (8.4-10.2) L 06/23/20 05:13 Phosphorus 6.70 mg/dL (2.5-4.5) H 06/20/20 19:43 Magnesium 4.50 mg/dL (1.7-2.3) H 06/17/20 15:33 Medications & Allergies - Medications Allergies/Adverse Reactions: Allergies No Known Allergies Allergy (Unverified 06/21/20 20:38) Active Medications: Generic Name Dose Route Start Last Admin Trade Name Freq PRN Reason Stop Dose Admin Acetaminophen 650 mg 06/17/20 13:40 Acetaminophen 325 Mg Tab PO Q6H PRN Pain, Mild (1-3) Albuterol 2.5 mg 06/17/20 13:40 Albuterol 2.5 Mg/3 Ml Nebu IH Q3HRT PRN Shortness Of Breath Dextrose 50 ml 06/19/20 15:28 Dextrose 50% In Water (25gm) 50 Ml Syringe IV Q30MIN PRN Hypoglycemia Protocol Famotidine 20 mg 06/19/20 10:00 06/22/20 10:45 Famotidine 20 Mg Tab PO 20 mg QDAY JERMAINE Administration Heparin Sodium (Porcine) 5,000 unit 06/17/20 22:00 06/23/20 02:20 Heparin 5,000 Unit/1 Ml Vial SUB-Q 5,000 unit Q12HR JERMAINE Administration Hydromorphone HCl 0.25 mg 06/17/20 13:40 Hydromorphone 1 Mg/1 Ml Inj IV Q4H PRN Pain, Moderate (4-6) Levofloxacin/Dextrose 500 mg in 100 mls @ 100 mls/hr 06/21/20 15:00 06/21/20 22:00 Levaquin 500mg/100ml IV 06/25/20 15:59 100 mls/hr Q48H JERMAINE Administration Sodium Chloride 100 mls @ 999 mls/hr 06/20/20 18:47 Nacl 0.9% IV MARIELLE PRN Hypotension Sodium Bicarbonate 50 meq/ 1,050 mls @ 75 mls/hr 06/21/20 11:00 06/22/20 03:13 Dextrose IV 125 mls/hr DIRECT JERMAINE Administration Insulin Glargine 10 units 06/23/20 08:00 06/23/20 08:25 Insulin Glargine 100 Units/Ml SUB-Q 10 units QAM@0800 JERMAINE Administration Insulin Human Lispro 0 unit 06/18/20 16:00 06/23/20 05:13 Insulin Lispro 100 Unit/Ml Vial 3 Ml SUB-Q 15 unit Q6H JERMAINE Administration Protocol Sodium Chloride 10 ml 06/17/20 22:00 06/22/20 23:40 Sodium Chloride 0.9% 10 Ml Flush Syringe IV 10 ml BID JERMAINE Administration Sodium Chloride 10 ml 06/17/20 13:40 Sodium Chloride 0.9% 10 Ml Flush Syringe IV PRN PRN LINE FLUSH
[2020-06-23] MEDS: FAMOTIDINE 20 MG TAB PO SCH (10:12)
--- NOTE | 2020-06-23 14:05 | Progress Note ---
Assessment and Plan atient alert, awake. Resting on room air. no complaint of chest pain, shortness of breath or cough. Patients O2 saturation 98% on room air. Patient afebrile. No leukocytosis. Obtaining Chest xray and ABGs. - Patient Problems (1) DKA (diabetic ketoacidoses) Current Visit: Yes Status: Acute Qualifiers: Diabetes mellitus complication detail: with coma Plan to address problem: Patients blood sugur 283, Anion gap 19. management as per primary care. (2) YUNI (acute kidney injury) Current Visit: Yes Status: Acute Plan to address problem: Management as per nephrology. (3) Altered mental status Current Visit: Yes Status: Acute Plan to address problem: Improving management as per primary care. (4) End stage renal disease Current Visit: Yes Status: Acute Plan to address problem: Management as per nephrology. (5) Rhabdomyolysis Current Visit: Yes Status: Acute Qualifiers: Encounter type: initial encounter Plan to address problem: Total CPK 8940. patient is on I/V fluids. (6) Sepsis Current Visit: Yes Status: Acute Plan to address problem: Patient is on I/V levaquin. Subjective Date of service: 06/23/20 Principal diagnosis: DKA; Ac encephalopathy; Severe sepsis; Rhabdomyolysis; UYNI. Interval history: Patient alert, awake. Resting on room air. no complaint of chest pain, shortness of breath or cough. Patients O2 saturation 98% on room air. Patient afebrile. No leukocytosis. Obtaining Chest xray and ABGs. Objective Vital Signs - 12hr 06/23/20 06/23/20 06/23/20 03:00 07:15 07:30 Temperature Pulse Rate 132 H 116 H 119 H Respiratory 26 H 25 H 28 H Rate Blood Pressure 112/68 105/65 102/70 O2 Sat by Pulse 97 94 Oximetry 06/23/20 06/23/20 06/23/20 08:00 08:30 09:00 Temperature Pulse Rate 114 H 115 H 117 H Respiratory 22 24 25 H Rate Blood Pressure 111/68 130/79 124/77 O2 Sat by Pulse Oximetry 06/23/20 06/23/20 06/23/20 09:30 10:00 10:30 Temperature Pulse Rate 118 H 118 H 119 H Respiratory 15 23 34 H Rate Blood Pressure 116/76 113/67 109/62 O2 Sat by Pulse 94 95 Oximetry 06/23/20 06/23/20 06/23/20 11:00 11:10 11:38 Temperature Pulse Rate 119 H 116 H 120 H Respiratory 28 H 28 H Rate Blood Pressure 108/74 108/74 O2 Sat by Pulse 91 93 Oximetry 06/23/20 12:51 Temperature 98.4 F Pulse Rate 69 Respiratory 18 Rate Blood Pressure 109/66 O2 Sat by Pulse 98 Oximetry Constitutional: no acute distress, alert, other (middle aged male with normal respiratory effort at rest) Eyes: non-icteric ENT: oropharynx moist Neck: supple, no lymphadenopathy, no JVD Effort: normal Ascultation: Bilateral: clear Percussion: Bilateral: not dull Cardiovascular: regular rate and rhythm Gastrointestinal: normoactive bowel sounds, soft, non-tender, non-distended Integumentary: rash (xeroderma) Extremities: no cyanosis, no edema, pulses normal, no ischemia or petechiae Neurologic: non-focal exam, pupils equal and round, CN II-XII normal, motor strength normal and Psychiatric: mood appropriate, affect normal CBC and BMP: 06/23/20 05:13 06/23/20 05:13 ABG, PT/INR, D-dimer: PT/INR, D-dimer PT 22.1 Sec. (12.2-14.9) H 06/17/20 11:24 INR 1.92 (0.87-1.13) H 06/17/20 11:24 Abnormal lab findings: Abnormal Labs 06/17/20 06/17/20 06/17/20 11:24 11:24 11:24 WBC 14.7 H RBC 5.38 H Hgb Hct 49.1 H MCH 27 L MCHC 29 L Lymph % (Auto) 9.[address] [place] % (Auto) [place] # (Auto) Seg Neutrophils % 86.8 H Seg Neuts % (Manual) Lymphocytes % (Manual) Monocytes % (Manual) Seg Neutrophils # 12.8 H Seg Neutrophils # Man Lymphocytes # (Manual) Monocytes # (Manual) Basophils # (Manual) PT 22.1 H INR 1.92 H APTT 38.9 H VBG pH Sodium 149 H Potassium Chloride Carbon Dioxide BUN 84 H Creatinine 3.6 H Glucose 1394 H* POC Glucose Lactic Acid Calcium Phosphorus Magnesium AST 59 H ALT Total Creatine Kinase 5507 H CK-MB (CK-2) 7.9 H Total Protein 9.0 H Albumin 3.7 L Free T4 Urine WBC (Auto) 06/17/20 06/17/20 06/17/20 11:24 11:24 11:24 WBC RBC Hgb Hct MCH MCHC Lymph % (Auto) [place] % (Auto) [place] # (Auto) Seg Neutrophils % Seg Neuts % (Manual) Lymphocytes % (Manual) Monocytes % (Manual) Seg Neutrophils # Seg Neutrophils # Man Lymphocytes # (Manual) Monocytes # (Manual) Basophils # (Manual) PT INR APTT VBG pH 7.123 L* Sodium Potassium Chloride Carbon Dioxide BUN Creatinine Glucose POC Glucose Lactic Acid Calcium Phosphorus Magnesium 6.20 H AST ALT Total Creatine Kinase CK-MB (CK-2) Total Protein Albumin Free T4 1.65 H Urine WBC (Auto) 06/17/20 06/17/20 06/17/20 15:27 15:33 15:33 WBC RBC Hgb Hct MCH MCHC Lymph % (Auto) [place] % (Auto) [place] # (Auto) Seg Neutrophils % Seg Neuts % (Manual) Lymphocytes % (Manual) Monocytes % (Manual) Seg Neutrophils # Seg Neutrophils # Man Lymphocytes # (Manual) Monocytes # (Manual) Basophils # (Manual) PT INR APTT VBG pH Sodium Potassium Chloride Carbon Dioxide BUN Creatinine Glucose 1086 H* POC Glucose > 600 H Lactic Acid Calcium Phosphorus 9.40 H Magnesium 4.50 H AST ALT Total Creatine Kinase CK-MB (CK-2) Total Protein Albumin Free T4 Urine WBC (Auto) 06/17/20 06/17/20 06/17/20 16:58 18:39 18:41 WBC RBC Hgb Hct MCH MCHC Lymph % (Auto) [place] % (Auto) [place] # (Auto) Seg Neutrophils % Seg Neuts % (Manual) Lymphocytes % (Manual) Monocytes % (Manual) Seg Neutrophils # Seg Neutrophils # Man Lymphocytes # (Manual) Monocytes # (Manual) Basophils # (Manual) PT INR APTT VBG pH Sodium 155 H 154 H Potassium 3.0 L D 2.8 L* Chloride 114.0 H 117.3 H Carbon Dioxide 20 L 19 L BUN 83 H 84 H Creatinine 3.2 H 3.3 H Glucose 1046 H* 830 H* POC Glucose > 600 H Lactic Acid Calcium 7.8 L D 7.9 L Phosphorus Magnesium AST ALT Total Creatine Kinase CK-MB (CK-2) Total Protein Albumin Free T4 Urine WBC (Auto) 06/17/20 06/17/20 06/17/20 21:15 21:15 Unknown WBC RBC Hgb Hct MCH MCHC Lymph % (Auto) [place] % (Auto) [place] # (Auto) Seg Neutrophils % Seg Neuts % (Manual) Lymphocytes % (Manual) Monocytes % (Manual) Seg Neutrophils # Seg Neutrophils # Man Lymphocytes # (Manual) Monocytes # (Manual) Basophils # (Manual) PT INR APTT VBG pH Sodium 157 H Potassium 2.9 L* Chloride 118.8 H Carbon Dioxide 19 L BUN 84 H Creatinine 3.3 H Glucose 666 H* POC Glucose Lactic Acid 2.80 H* Calcium 7.8 L Phosphorus Magnesium AST ALT Total Creatine Kinase CK-MB (CK-2) Total Protein Albumin Free T4 Urine WBC (Auto) 7.0 H 06/18/20 06/18/20 06/18/20 00:10 00:20 03:20 WBC RBC Hgb Hct MCH MCHC Lymph % (Auto) [place] % (Auto) [place] # (Auto) Seg Neutrophils % Seg Neuts % (Manual) Lymphocytes % (Manual) Monocytes % (Manual) Seg Neutrophils # Seg Neutrophils # Man Lymphocytes # (Manual) Monocytes # (Manual) Basophils # (Manual) PT INR APTT VBG pH Sodium 160 H Potassium 3.0 L Chloride 118.8 H Carbon Dioxide BUN 89 H Creatinine 3.8 H Glucose 650 H* POC Glucose 291 H Lactic Acid 2.40 H* Calcium 7.8 L Phosphorus Magnesium AST ALT Total Creatine Kinase CK-MB (CK-2) Total Protein Albumin Free T4 Urine WBC (Auto) 06/18/20 06/18/20 06/18/20 05:19 06:27 06:27 WBC RBC Hgb Hct MCH MCHC Lymph % (Auto) [place] % (Auto) [place] # (Auto) Seg Neutrophils % Seg Neuts % (Manual) Lymphocytes % (Manual) Monocytes % (Manual) Seg Neutrophils # Seg Neutrophils # Man Lymphocytes # (Manual) Monocytes # (Manual) Basophils # (Manual) PT INR APTT VBG pH Sodium 167 H* Potassium 3.4 L Chloride 126.4 H Carbon Dioxide 21 L BUN 99 H Creatinine 4.5 H Glucose 291 H POC Glucose 276 H Lactic Acid 2.80 H* Calcium 8.1 L Phosphorus Magnesium AST ALT Total Creatine Kinase CK-MB (CK-2) Total Protein Albumin Free T4 Urine WBC (Auto) 06/18/20 06/18/20 06/18/20 06:45 08:40 08:49 WBC RBC Hgb Hct MCH MCHC Lymph % (Auto) [place] % (Auto) [place] # (Auto) Seg Neutrophils % Seg Neuts % (Manual) Lymphocytes % (Manual) Monocytes % (Manual) Seg Neutrophils # Seg Neutrophils # Man Lymphocytes # (Manual) Monocytes # (Manual) Basophils # (Manual) PT INR APTT VBG pH Sodium Potassium Chloride Carbon Dioxide BUN Creatinine Glucose POC Glucose 215 H 182 H Lactic Acid 2.20 H* Calcium Phosphorus Magnesium AST ALT Total Creatine Kinase CK-MB (CK-2) Total Protein Albumin Free T4 Urine WBC (Auto) 06/18/20 06/18/20 06/18/20 10:01 10:28 11:40 WBC RBC Hgb Hct MCH MCHC Lymph % (Auto) [place] % (Auto) [place] # (Auto) Seg Neutrophils % Seg Neuts % (Manual) Lymphocytes % (Manual) Monocytes % (Manual) Seg Neutrophils # Seg Neutrophils # Man Lymphocytes # (Manual) Monocytes # (Manual) Basophils # (Manual) PT INR APTT VBG pH Sodium 161 H* Potassium Chloride 125.4 H Carbon Dioxide 21 L BUN 98 H Creatinine 5.0 H Glucose 247 H POC Glucose 217 H Lactic Acid 3.20 H* Calcium 7.8 L Phosphorus Magnesium AST ALT Total Creatine Kinase CK-MB (CK-2) Total Protein Albumin Free T4 Urine WBC (Auto) 06/18/20 06/18/20 06/18/20 11:40 11:40 12:33 WBC RBC Hgb Hct MCH MCHC Lymph % (Auto) [place] % (Auto) [place] # (Auto) Seg Neutrophils % Seg Neuts % (Manual) Lymphocytes % (Manual) Monocytes % (Manual) Seg Neutrophils # Seg Neutrophils # Man Lymphocytes # (Manual) Monocytes # (Manual) Basophils # (Manual) PT INR APTT VBG pH Sodium Potassium Chloride Carbon Dioxide BUN Creatinine Glucose POC Glucose 199 H Lactic Acid 2.40 H* Calcium Phosphorus Magnesium AST ALT Total Creatine Kinase 47573 H CK-MB (CK-2) Total Protein Albumin Free T4 Urine WBC (Auto) 06/18/20 06/18/20 06/18/20 13:57 16:27 21:58 WBC RBC Hgb Hct MCH MCHC Lymph % (Auto) [place] % (Auto) [place] # (Auto) Seg Neutrophils % Seg Neuts % (Manual) Lymphocytes % (Manual) Monocytes % (Manual) Seg Neutrophils # Seg Neutrophils # Man Lymphocytes # (Manual) Monocytes # (Manual) Basophils # (Manual) PT INR APTT VBG pH Sodium Potassium Chloride Carbon Dioxide BUN Creatinine Glucose POC Glucose 198 H 185 H 281 H Lactic Acid Calcium Phosphorus Magnesium AST ALT Total Creatine Kinase CK-MB (CK-2) Total Protein Albumin Free T4 Urine WBC (Auto) 06/19/20 06/19/20 06/19/20 00:55 00:55 04:25 WBC RBC Hgb Hct MCH MCHC Lymph % (Auto) [place] % (Auto) [place] # (Auto) Seg Neutrophils % Seg Neuts % (Manual) Lymphocytes % (Manual) Monocytes % (Manual) Seg Neutrophils # Seg Neutrophils # Man Lymphocytes # (Manual) Monocytes # (Manual) Basophils # (Manual) PT INR APTT VBG pH Sodium 164 H* Potassium Chloride 125.8 H Carbon Dioxide 21 L BUN 100 H Creatinine 6.4 H Glucose 370 H POC Glucose 366 H Lactic Acid 2.30 H* Calcium 7.4 L Phosphorus Magnesium AST ALT Total Creatine Kinase CK-MB (CK-2) Total Protein Albumin Free T4 Urine WBC (Auto) 06/19/20 06/19/20 06/19/20 11:49 14:24 15:44 WBC RBC Hgb Hct MCH MCHC Lymph % (Auto) [place] % (Auto) [place] # (Auto) Seg Neutrophils % Seg Neuts % (Manual) Lymphocytes % (Manual) Monocytes % (Manual) Seg Neutrophils # Seg Neutrophils # Man Lymphocytes # (Manual) Monocytes # (Manual) Basophils # (Manual) PT INR APTT VBG pH Sodium Potassium Chloride Carbon Dioxide BUN Creatinine Glucose POC Glucose 411 H Lactic Acid 2.90 H* Calcium Phosphorus Magnesium AST ALT Total Creatine Kinase 97702 H CK-MB (CK-2) Total Protein Albumin Free T4 Urine WBC (Auto) 06/19/20 06/19/20 06/19/20 18:41 21:44 22:16 WBC RBC Hgb Hct MCH MCHC Lymph % (Auto) [place] % (Auto) [place] # (Auto) Seg Neutrophils % Seg Neuts % (Manual) Lymphocytes % (Manual) Monocytes % (Manual) Seg Neutrophils # Seg Neutrophils # Man Lymphocytes # (Manual) Monocytes # (Manual) Basophils # (Manual) PT INR APTT VBG pH Sodium Potassium Chloride Carbon Dioxide BUN Creatinine Glucose POC Glucose 404 H 333 H Lactic Acid 2.50 H* Calcium Phosphorus Magnesium AST ALT Total Creatine Kinase CK-MB (CK-2) Total Protein Albumin Free T4 Urine WBC (Auto) 06/20/20 06/20/20 06/20/20 00:12 04:37 05:08 WBC RBC Hgb Hct MCH MCHC Lymph % (Auto) [place] % (Auto) [place] # (Auto) Seg Neutrophils % Seg Neuts % (Manual) Lymphocytes % (Manual) Monocytes % (Manual) Seg Neutrophils # Seg Neutrophils # Man Lymphocytes # (Manual) Monocytes # (Manual) Basophils # (Manual) PT INR APTT VBG pH Sodium Potassium Chloride Carbon Dioxide BUN Creatinine Glucose POC Glucose 318 H Lactic Acid 2.10 H* Calcium Phosphorus Magnesium AST ALT Total Creatine Kinase 08094 H CK-MB (CK-2) Total Protein Albumin Free T4 Urine WBC (Auto) 06/20/20 06/20/20 06/20/20 10:19 14:47 14:47 WBC 15.1 H RBC Hgb 10.2 L Hct 32.0 L MCH 27 L MCHC Lymph % (Auto) [place] % (Auto) [place] # (Auto) Seg Neutrophils % Seg Neuts % (Manual) 79.0 H Lymphocytes % (Manual) 12.0 L Monocytes % (Manual) Seg Neutrophils # Seg Neutrophils # Man 11.9 H Lymphocytes # (Manual) Monocytes # (Manual) 1.1 H Basophils # (Manual) 0.2 H PT INR APTT VBG pH Sodium 156 H Potassium 5.9 H D Chloride 118.3 H Carbon Dioxide 20 L BUN 159 H Creatinine 9.4 H Glucose 283 H POC Glucose 220 H Lactic Acid Calcium 7.7 L Phosphorus Magnesium AST 149 H ALT 89 H Total Creatine Kinase CK-MB (CK-2) Total Protein 5.9 L D Albumin 2.3 L Free T4 Urine WBC (Auto) 06/20/20 06/20/20 06/20/20 17:02 19:43 22:01 WBC RBC Hgb Hct MCH MCHC Lymph % (Auto) [place] % (Auto) [place] # (Auto) Seg Neutrophils % Seg Neuts % (Manual) Lymphocytes % (Manual) Monocytes % (Manual) Seg Neutrophils # Seg Neutrophils # Man Lymphocytes # (Manual) Monocytes # (Manual) Basophils # (Manual) PT INR APTT VBG pH Sodium Potassium Chloride Carbon Dioxide BUN Creatinine Glucose POC Glucose 248 H 268 H Lactic Acid Calcium Phosphorus 6.70 H Magnesium AST ALT Total Creatine Kinase CK-MB (CK-2) Total Protein Albumin Free T4 Urine WBC (Auto) 06/21/20 06/21/20 06/21/20 02:22 04:28 09:45 WBC RBC Hgb Hct MCH MCHC Lymph % (Auto) [place] % (Auto) [place] # (Auto) Seg Neutrophils % Seg Neuts % (Manual) Lymphocytes % (Manual) Monocytes % (Manual) Seg Neutrophils # Seg Neutrophils # Man Lymphocytes # (Manual) Monocytes # (Manual) Basophils # (Manual) PT INR APTT VBG pH Sodium Potassium Chloride Carbon Dioxide BUN Creatinine Glucose POC Glucose 248 H 237 H 234 H Lactic Acid Calcium Phosphorus Magnesium AST ALT Total Creatine Kinase CK-MB (CK-2) Total Protein Albumin Free T4 Urine WBC (Auto) 06/21/20 06/21/20 06/21/20 15:29 15:29 15:29 WBC 11.8 H RBC 3.51 L Hgb 9.3 L Hct 29.8 L MCH 27 L MCHC 31 L Lymph % (Auto) [place] % (Auto) [place] # (Auto) Seg Neutrophils % Seg Neuts % (Manual) 81.0 H Lymphocytes % (Manual) 6.0 L Monocytes % (Manual) 10.0 H Seg Neutrophils # Seg Neutrophils # Man 9.6 H Lymphocytes # (Manual) 0.7 L Monocytes # (Manual) 1.2 H Basophils # (Manual) PT INR APTT VBG pH Sodium 152 H Potassium 6.0 H Chloride 115.0 H Carbon Dioxide 18 L BUN 161 H Creatinine 9.7 H Glucose 310 H POC Glucose Lactic Acid Calcium 7.9 L Phosphorus Magnesium AST ALT Total Creatine Kinase 09824 H CK-MB (CK-2) Total Protein Albumin Free T4 Urine WBC (Auto) 06/21/20 06/22/20 06/22/20 18:07 02:33 05:51 WBC 11.3 H RBC 3.18 L Hgb 8.6 L Hct 26.7 L MCH 27 L MCHC Lymph % (Auto) 13.[address] [place] % (Auto) 10.[address] [place] # (Auto) 1.2 H Seg Neutrophils % 75.6 H Seg Neuts % (Manual) Lymphocytes % (Manual) Monocytes % (Manual) Seg Neutrophils # 8.5 H Seg Neutrophils # Man Lymphocytes # (Manual) Monocytes # (Manual) Basophils # (Manual) PT INR APTT VBG pH Sodium Potassium Chloride Carbon Dioxide BUN Creatinine Glucose POC Glucose 320 H 302 H Lactic Acid Calcium Phosphorus Magnesium AST ALT Total Creatine Kinase CK-MB (CK-2) Total Protein Albumin Free T4 Urine WBC (Auto) 06/22/20 06/22/20 06/22/20 05:51 10:57 11:47 WBC RBC Hgb Hct MCH MCHC Lymph % (Auto) [place] % (Auto) [place] # (Auto) Seg Neutrophils % Seg Neuts % (Manual) Lymphocytes % (Manual) Monocytes % (Manual) Seg Neutrophils # Seg Neutrophils # Man Lymphocytes # (Manual) Monocytes # (Manual) Basophils # (Manual) PT INR APTT VBG pH Sodium Potassium Chloride Carbon Dioxide BUN 102 H Creatinine 7.1 H Glucose 357 H POC Glucose 438 H Lactic Acid Calcium 8.0 L Phosphorus Magnesium AST ALT Total Creatine Kinase 8530 H CK-MB (CK-2) Total Protein Albumin Free T4 Urine WBC (Auto) 06/23/20 06/23/20 06/23/20 02:12 04:38 05:13 WBC RBC 2.93 L Hgb 8.0 L Hct 24.8 L MCH 27 L MCHC Lymph % (Auto) 13.[address] % (Auto) 14.[address] [place] # (Auto) 1.5 H Seg Neutrophils % 72.4 H Seg Neuts % (Manual) Lymphocytes % (Manual) Monocytes % (Manual) Seg Neutrophils # Seg Neutrophils # Man Lymphocytes # (Manual) Monocytes # (Manual) Basophils # (Manual) PT INR APTT VBG pH Sodium Potassium Chloride Carbon Dioxide BUN Creatinine Glucose POC Glucose 417 H 390 H Lactic Acid Calcium Phosphorus Magnesium AST ALT Total Creatine Kinase CK-MB (CK-2) Total Protein Albumin Free T4 Urine WBC (Auto) 06/23/20 06/23/20 06/23/20 05:13 05:13 10:06 WBC RBC Hgb Hct MCH MCHC Lymph % (Auto) [place] % (Auto) [place] # (Auto) Seg Neutrophils % Seg Neuts % (Manual) Lymphocytes % (Manual) Monocytes % (Manual) Seg Neutrophils # Seg Neutrophils # Man Lymphocytes # (Manual) Monocytes # (Manual) Basophils # (Manual) PT INR APTT VBG pH Sodium Potassium Chloride Carbon Dioxide BUN 90 H Creatinine 6.2 H Glucose 424 H POC Glucose 248 H Lactic Acid Calcium 7.8 L Phosphorus Magnesium AST ALT Total Creatine Kinase 8540 H CK-MB (CK-2) Total Protein Albumin Free T4 Urine WBC (Auto) 06/23/20 11:44 WBC RBC Hgb Hct MCH MCHC Lymph % (Auto) [place] % (Auto) [place] # (Auto) Seg Neutrophils % Seg Neuts % (Manual) Lymphocytes % (Manual) Monocytes % (Manual) Seg Neutrophils # Seg Neutrophils # Man Lymphocytes # (Manual) Monocytes # (Manual) Basophils # (Manual) PT INR APTT VBG pH Sodium Potassium Chloride Carbon Dioxide BUN Creatinine Glucose POC Glucose 243 H Lactic Acid Calcium Phosphorus Magnesium AST ALT Total Creatine Kinase CK-MB (CK-2) Total Protein Albumin Free T4 Urine WBC (Auto) Allied health notes reviewed: nursing
--- NOTE | 2020-06-23 22:27 | Progress Note ---
Assessment and Plan - Patient Problems (1) Sepsis Current Visit: Yes Status: Acute Plan to address problem: Sepsis protocol: CBC, CMP, chest x-ray, urinalysis, IV fluid resuscitation therapy, IV antibiotic therapy, serial lactic acid, blood culture, monitor urine output every shift, monitor fluid balance, maintain mean arterial pressure greater than or equal to 65, (2) Toxic metabolic encephalopathy Current Visit: Yes Status: Acute Plan to address problem: Resolved, continue current care, (3) DKA (diabetic ketoacidoses) Current Visit: Yes Status: Acute Qualifiers: Diabetes mellitus complication detail: with coma Plan to address problem: DKA resolved, sliding-scale insulin therapy, Accu-Chek, hypoglycemia protocol (4) Rhabdomyolysis Current Visit: Yes Status: Acute Qualifiers: Encounter type: initial encounter Plan to address problem: Improving (5) End stage renal disease Current Visit: Yes Status: Acute Plan to address problem: Patient undergoing hemodialysis Renal team still assessing whether patient needs hemodialysis as outpatient (6) DVT prophylaxis Current Visit: Yes Status: Acute Plan to address problem: SCD to bilateral lower extremities while in bed, prophylactic anticoagulation Subjective Date of service: 06/22/20 Principal diagnosis: DKA; Ac encephalopathy; Severe sepsis; Rhabdomyolysis; YUNI. Interval history: History Interval history: 44 YO Male HD #5 with Sepsis, resolved DKA, improved Toxic Metabolic Encephalopathy, ESRD requiring Hemodialysis, Rhabdomyolysis, Hypothermia. Patient status improved today. Patient is alert and oriented x3 and resting comfortably in bed. Patient denies pain. Patient states that he is feeling better today. Patient encouraged to increase oral free water intake as tolerated. No reported nursing events. Patient denies pain. Objective - Constitutional Vitals: Vital Signs - 12hr 06/23/20 06/23/20 06/23/20 10:30 11:00 11:10 Temperature Pulse Rate 119 H 119 H 116 H Respiratory 34 H 28 H 28 H Rate Blood Pressure 109/62 108/74 108/74 O2 Sat by Pulse 95 91 Oximetry 06/23/20 06/23/20 06/23/20 11:38 12:51 16:59 Temperature 98.4 F 98.3 F Pulse Rate 120 H 69 118 H Respiratory 18 20 Rate Blood Pressure 109/66 108/65 O2 Sat by Pulse 93 98 91 Oximetry 06/23/20 19:53 Temperature 98.6 F Pulse Rate 116 H Respiratory 20 Rate Blood Pressure 120/73 O2 Sat by Pulse 98 Oximetry General appearance: Present: no acute distress, well-nourished - EENT Eyes: PERRL, EOM intact ENT: hearing intact, clear oral mucosa Ears: bilateral: normal - Neck Neck: supple, normal ROM - Respiratory Respiratory effort: normal Respiratory: bilateral: CTA - Breasts Breasts: normal - Cardiovascular Rhythm: regular Heart Sounds: Present: S1 & S2. Absent: gallop, rub Extremities: pulses intact, No edema, normal color, Full ROM - Gastrointestinal General gastrointestinal: Present: soft, non-tender, non-distended, normal bowel sounds - Genitourinary Male genitourinary: normal - Integumentary Integumentary: clear, warm, dry - Musculoskeletal Musculoskeletal: 1, strength equal bilaterally - Neurologic Neurologic: moves all extremities - Psychiatric Psychiatric: memory intact, appropriate mood/affect, intact judgment & insight - Labs CBC & Chem 7: 06/27/20 07:10 06/27/20 07:10 Labs: Abnormal lab results 06/23/20 06/23/20 06/23/20 Range/Units 02:12 04:38 05:13 RBC 2.93 L (3.65-5.03) M/mm3 Hgb 8.0 L (11.8-15.2) gm/dl Hct 24.8 L (35.5-45.6) % MCH 27 L (28-32) pg Lymph % (Auto) 13.0 L (13.4-35.0) % Stafford % (Auto) 14.1 H (0.0-7.3) % Stafford # (Auto) 1.5 H (0.0-0.8) K/mm3 Seg Neutrophils % 72.4 H (40.0-70.0) % BUN (9-20) mg/dL Creatinine (0.8-1.3) mg/dL Glucose (75-100) mg/dL POC Glucose 417 H 390 H (70-105) mg/dL Calcium (8.4-10.2) mg/dL Total Creatine Kinase (55-170) units/L 06/23/20 06/23/20 06/23/20 Range/Units 05:13 05:13 10:06 RBC (3.65-5.03) M/mm3 Hgb (11.8-15.2) gm/dl Hct (35.5-45.6) % MCH (28-32) pg Lymph % (Auto) (13.4-35.0) % Stafford % (Auto) (0.0-7.3) % Stafford # (Auto) (0.0-0.8) K/mm3 Seg Neutrophils % (40.0-70.0) % BUN 90 H (9-20) mg/dL Creatinine 6.2 H (0.8-1.3) mg/dL Glucose 424 H (75-100) mg/dL POC Glucose 248 H (70-105) mg/dL Calcium 7.8 L (8.4-10.2) mg/dL Total Creatine Kinase 8540 H (55-170) units/L 06/23/20 06/23/20 06/23/20 Range/Units 11:44 15:51 20:30 RBC (3.65-5.03) M/mm3 Hgb (11.8-15.2) gm/dl Hct (35.5-45.6) % MCH (28-32) pg Lymph % (Auto) (13.4-35.0) % Stafford % (Auto) (0.0-7.3) % Stafford # (Auto) (0.0-0.8) K/mm3 Seg Neutrophils % (40.0-70.0) % BUN (9-20) mg/dL Creatinine (0.8-1.3) mg/dL Glucose (75-100) mg/dL POC Glucose 243 H 283 H 275 H (70-105) mg/dL Calcium (8.4-10.2) mg/dL Total Creatine Kinase (55-170) units/L HEART Score - HEART Score Troponin: Troponin T < 0.010 ng/mL (0.00-0.029) 06/17/20 11:24
[2020-06-24] MEDS: INSULIN LISPRO 100 UNIT/ML VIAL 3 mL SUB-Q SCH ×3 (05:02→16:53)
[2020-06-24 07:28] LABS: Hematocrit 23.2 % (35.5-45.6); Hemoglobin 7.5 gm/dl (11.8-15.2); Mean Corpuscular HGB Conc 32 % (32-34); Mean Corpuscular Volume 84 fl (84-94); Platelet Count 186 K/mm3 (140-440); Red Blood Count 2.78 M/mm3 (3.65-5.03); Red Cell Distribution Width 13.8 % (13.2-15.2)
[2020-06-24 07:49] LABS: Calcium 8.4 mg/dL (8.4-10.2)
[2020-06-24 09:38] LABS: Myelocytes # (Manual) 0.1 K/mm3; Total Cells Counted 100
[2020-06-24 09:39] LABS: Platelet Estimate Consistent w Auto; RBC Morphology Normal
--- NOTE | 2020-06-24 10:22 | XRay Report ---
CHEST 2 VIEWS INDICATION / CLINICAL INFORMATION: Sepsis, possible aspiration.. COMPARISON: None available. FINDINGS: SUPPORT DEVICES: There is a right jugular CVL with the tip overlying the upper right atrium. HEART / MEDIASTINUM: The heart size and pulmonary vasculature are normal. LUNGS / PLEURA: Lung volumes are mildly decreased with mild bibasilar dependent atelectasis. There is mild patchy parenchymal disease in the right mid-upper lung laterally. No pleural effusion. No pneum othorax. ADDITIONAL FINDINGS: No significant additional findings. IMPRESSION: 1. Mild patchy parenchymal disease in the right upper lobe may be related to pneumonia but is nonspec ific. 2. Mildly decreased lung volumes with mild bibasilar dependent atelectasis. Signer Name: Pablo Bryant MD Signed: 06/24/2020 10:17 AM Workstation Name: [id number]
[2020-06-24] MEDS: FAMOTIDINE 20 MG TAB PO SCH (10:34)
[2020-06-24] MEDS: ACETAMINOPHEN 325 MG TAB PO PRN (10:34)
[2020-06-24] MEDS: HEPARIN 5,000 UNIT/1 ML VIAL SUB-Q SCH ×2 (10:35→23:40)
[2020-06-24] MEDS: INSULIN GLARGINE 100 UNITS/ML SUB-Q SCH ×2 (10:36→10:48)
--- NOTE | 2020-06-24 11:42 | Progress Note ---
Assessment and Plan Assessment * Acute kidney injury * Uremia * Severe hypernatremia * Hyperkalemia * Rhabdomyolysis, severe * Acidosis * Acute encephalopathy * Sepsis * DKA Recommendations * Plan for HD today and q TTHSAT * stop ivfs * S/p Garcia, strict I's/O * Trend CPK daily, improving * F/u renal ultrasoud noted * DKA protocol per primary * Renally dose medications * Avoid nephrotoxins Subjective Date of service: 06/24/20 Principal diagnosis: DKA; Ac encephalopathy; Severe sepsis; Rhabdomyolysis; YUNI. Interval history: resting in bed today Objective - Exam Narrative Exam: Constitutional: No acute distress Head: Normocephalic/atraumatic Neck: Supple Lungs: Clear to auscultation bilaterally Cardiovascular: RRR, no M/R/G Abdomen: Soft, nontender, NABS Back, nontender Extremities: No edema, pulses within normal limits Skin: Intact, no rash Neuro: Tremulous, oriented only to self and time - Vital Signs Vital signs: Vital Signs - 12hr 06/24/20 06/24/20 06/24/20 00:00 04:24 09:09 Temperature 98.5 F 99.5 F Pulse Rate 116 H 118 H 112 H Respiratory 14 18 Rate Blood Pressure 109/54 117/73 O2 Sat by Pulse 94 94 Oximetry - Lab 06/24/20 06:35 06/24/20 06:35 Most recent lab results Calcium 8.4 mg/dL (8.4-10.2) 06/24/20 06:35 Phosphorus 6.70 mg/dL (2.5-4.5) H 06/20/20 19:43 Magnesium 4.50 mg/dL (1.7-2.3) H 06/17/20 15:33 Medications & Allergies - Medications Allergies/Adverse Reactions: Allergies No Known Allergies Allergy (Unverified 06/21/20 20:38) Home Medications: Home Medications Medication Instructions Recorded Confirmed Last Taken Type Atenolol 50 mg PO DAILY 06/23/20 06/23/20 Unknown History Insulin Degludec [Tresiba 52 unit SQ QHS 06/23/20 06/23/20 Unknown History Flextouch U-200] Insulin Lispro [Humalog Kwikpen 15 units SQ AC 06/23/20 06/23/20 Unknown History 200 UNITS/ML] Lisinopril [Zestril] 10 mg PO DAILY 06/23/20 06/23/20 Unknown History Semaglutide [Ozempic] 0.25 mg SQ 1XW 06/23/20 06/23/20 Unknown History Simvastatin 40 mg PO DAILY 06/23/20 06/23/20 Unknown History Active Medications: Generic Name Dose Route Start Last Admin Trade Name Freq PRN Reason Stop Dose Admin Acetaminophen 650 mg 06/17/20 13:40 06/24/20 10:34 Acetaminophen 325 Mg Tab PO 650 mg Q6H PRN Administration Pain, Mild (1-3) Albuterol 2.5 mg 06/17/20 13:40 Albuterol 2.5 Mg/3 Ml Nebu IH Q3HRT PRN Shortness Of Breath Dextrose 50 ml 06/19/20 15:28 Dextrose 50% In Water (25gm) 50 Ml Syringe IV Q30MIN PRN Hypoglycemia Protocol Famotidine 20 mg 06/19/20 10:00 06/24/20 10:34 Famotidine 20 Mg Tab PO 20 mg QDAY JERMAINE Administration Heparin Sodium (Porcine) 5,000 unit 06/17/20 22:00 06/24/20 10:35 Heparin 5,000 Unit/1 Ml Vial SUB-Q 5,000 unit Q12HR JERMAINE Administration Hydromorphone HCl 0.25 mg 06/17/20 13:40 06/22/20 23:58 Hydromorphone 1 Mg/1 Ml Inj IV 0.25 mg Q4H PRN Administration Pain, Moderate (4-6) Levofloxacin/Dextrose 500 mg in 100 mls @ 100 mls/hr 06/21/20 15:00 06/23/20 15:07 Levaquin 500mg/100ml IV 06/25/20 15:59 100 mls/hr Q48H JERMAINE Administration Sodium Chloride 100 mls @ 999 mls/hr 06/20/20 18:47 Nacl 0.9% IV MARIELLE PRN Hypotension Sodium Bicarbonate 50 meq/ 1,050 mls @ 75 mls/hr 06/21/20 11:00 06/22/20 03:13 Dextrose IV 125 mls/hr DIRECT JERMAINE Administration Insulin Glargine 15 units 06/23/20 23:00 06/24/20 10:48 Insulin Glargine 100 Units/Ml SUB-Q 15 units BID JERMAINE Administration Insulin Human Lispro 0 unit 06/18/20 16:00 06/24/20 10:29 Insulin Lispro 100 Unit/Ml Vial 3 Ml SUB-Q 11 unit Q6H JERMAINE Administration Protocol Sodium Chloride 10 ml 06/17/20 22:00 06/24/20 10:46 Sodium Chloride 0.9% 10 Ml Flush Syringe IV 10 ml BID JERMAINE Administration Sodium Chloride 10 ml 06/17/20 13:40 Sodium Chloride 0.9% 10 Ml Flush Syringe IV PRN PRN LINE FLUSH
[2020-06-24] MEDS ORDERED: SODIUM CHLORIDE 0.9% 100 ML IV PRN (12:00)
[2020-06-24] MEDS: SODIUM BICARBONATE 650 MG TAB PO SCH ×2 (12:14→23:39)
--- NOTE | 2020-06-24 14:02 | Progress Note ---
Assessment and Plan Diabetic ketoacidosis. Acute toxic metabolic encephalopathy. Severe sepsis at presentation. Leukocytosis, presumably stress leukocytosis. Hypernatremia. Rhabdomyolysis. Acute kidney injury - ABG reviewed and addressed - continue HD/UF for toxin and volume control - supplemental oxygen to keep O2 sats > 90% - prn Bronchodilators (INÉS) with pulm hygiene per RT - continue to avoid nephrotoxins, renally dose all medications - mobility protocols to prevent pressure ulcers - PT/OT as tolerated - prn analgesia per pain score - continue accuchecks with glycemic control per SSI for target blood glucose < 180 mg/dL - GI & VTE prophylaxis - Flu & pneumovax per protocol - continue other care per attending / other consultants ... re-evaluate in am & prn Subjective Date of service: 06/24/20 Principal diagnosis: DKA; Ac encephalopathy; Severe sepsis; Rhabdomyolysis; YUNI. Interval history: Patient is seen today for: Diabetic ketoacidosis; Acute toxic metabolic encephalopathy; Severe sepsis; Rhabdomyolysis; Acute kidney injury Seen and examined at bedside; 24hour events reviewed; nursing and respiratory care staff consulted; no adverse overnight events reported to me; resting in bed; tolerating BIPAP; No N/V/F/C; off oxygen Objective Vital Signs - 12hr 06/24/20 06/24/20 06/24/20 04:24 09:09 12:15 Temperature 98.5 F 99.5 F 98.8 F Pulse Rate 118 H 112 H 103 H Respiratory 14 18 16 Rate Blood Pressure 109/54 117/73 136/77 O2 Sat by Pulse 94 94 Oximetry 06/24/20 13:30 Temperature Pulse Rate 103 H Respiratory Rate Blood Pressure 136/77 O2 Sat by Pulse Oximetry Constitutional: no acute distress, other (middle aged male with normal respira tory effort at rest) Eyes: non-icteric ENT: oropharynx moist Neck: supple, no lymphadenopathy, no JVD Effort: normal Ascultation: Bilateral: clear Percussion: Bilateral: not dull Cardiovascular: regular rate and rhythm Gastrointestinal: normoactive bowel sounds, soft, non-tender, non-distended Integumentary: rash (xeroderma) Extremities: no cyanosis, no edema, pulses normal, no ischemia or petechiae Neurologic: non-focal exam, pupils equal and round, CN II-XII normal, motor strength normal and Psychiatric: mood appropriate, affect normal CBC and BMP: 06/24/20 06:35 06/24/20 06:35 ABG, PT/INR, D-dimer: PT/INR, D-dimer PT 22.1 Sec. (12.2-14.9) H 06/17/20 11:24 INR 1.92 (0.87-1.13) H 06/17/20 11:24 Abnormal lab findings: Abnormal Labs 06/17/20 06/17/20 06/17/20 11:24 11:24 11:24 WBC 14.7 H RBC 5.38 H Hgb Hct 49.1 H MCH 27 L MCHC 29 L Lymph % (Auto) 9.9 L Bibb % (Auto) Bibb # (Auto) Seg Neutrophils % 86.8 H Seg Neuts % (Manual) Lymphocytes % (Manual) Monocytes % (Manual) Seg Neutrophils # 12.8 H Seg Neutrophils # Man Lymphocytes # (Manual) Monocytes # (Manual) Basophils # (Manual) PT 22.1 H INR 1.92 H APTT 38.9 H VBG pH Sodium 149 H Potassium Chloride Carbon Dioxide BUN 84 H Creatinine 3.6 H Glucose 1394 H* POC Glucose Lactic Acid Calcium Phosphorus Magnesium AST 59 H ALT Total Creatine Kinase 5507 H CK-MB (CK-2) 7.9 H Total Protein 9.0 H Albumin 3.7 L Free T4 Urine WBC (Auto) 06/17/20 06/17/20 06/17/20 11:24 11:24 11:24 WBC RBC Hgb Hct MCH MCHC Lymph % (Auto) Bibb % (Auto) Bibb # (Auto) Seg Neutrophils % Seg Neuts % (Manual) Lymphocytes % (Manual) Monocytes % (Manual) Seg Neutrophils # Seg Neutrophils # Man Lymphocytes # (Manual) Monocytes # (Manual) Basophils # (Manual) PT INR APTT VBG pH 7.123 L* Sodium Potassium Chloride Carbon Dioxide BUN Creatinine Glucose POC Glucose Lactic Acid Calcium Phosphorus Magnesium 6.20 H AST ALT Total Creatine Kinase CK-MB (CK-2) Total Protein Albumin Free T4 1.65 H Urine WBC (Auto) 06/17/20 06/17/20 06/17/20 15:27 15:33 15:33 WBC RBC Hgb Hct MCH MCHC Lymph % (Auto) Bibb % (Auto) Bibb # (Auto) Seg Neutrophils % Seg Neuts % (Manual) Lymphocytes % (Manual) Monocytes % (Manual) Seg Neutrophils # Seg Neutrophils # Man Lymphocytes # (Manual) Monocytes # (Manual) Basophils # (Manual) PT INR APTT VBG pH Sodium Potassium Chloride Carbon Dioxide BUN Creatinine Glucose 1086 H* POC Glucose > 600 H Lactic Acid Calcium Phosphorus 9.40 H Magnesium 4.50 H AST ALT Total Creatine Kinase CK-MB (CK-2) Total Protein Albumin Free T4 Urine WBC (Auto) 06/17/20 06/17/20 06/17/20 16:58 18:39 18:41 WBC RBC Hgb Hct MCH MCHC Lymph % (Auto) Bibb % (Auto) Bibb # (Auto) Seg Neutrophils % Seg Neuts % (Manual) Lymphocytes % (Manual) Monocytes % (Manual) Seg Neutrophils # Seg Neutrophils # Man Lymphocytes # (Manual) Monocytes # (Manual) Basophils # (Manual) PT INR APTT VBG pH Sodium 155 H 154 H Potassium 3.0 L D 2.8 L* Chloride 114.0 H 117.3 H Carbon Dioxide 20 L 19 L BUN 83 H 84 H Creatinine 3.2 H 3.3 H Glucose 1046 H* 830 H* POC Glucose > 600 H Lactic Acid Calcium 7.8 L D 7.9 L Phosphorus Magnesium AST ALT Total Creatine Kinase CK-MB (CK-2) Total Protein Albumin Free T4 Urine WBC (Auto) 06/17/20 06/17/20 06/17/20 21:15 21:15 Unknown WBC RBC Hgb Hct MCH MCHC Lymph % (Auto) Bibb % (Auto) Bibb # (Auto) Seg Neutrophils % Seg Neuts % (Manual) Lymphocytes % (Manual) Monocytes % (Manual) Seg Neutrophils # Seg Neutrophils # Man Lymphocytes # (Manual) Monocytes # (Manual) Basophils # (Manual) PT INR APTT VBG pH Sodium 157 H Potassium 2.9 L* Chloride 118.8 H Carbon Dioxide 19 L BUN 84 H Creatinine 3.3 H Glucose 666 H* POC Glucose Lactic Acid 2.80 H* Calcium 7.8 L Phosphorus Magnesium AST ALT Total Creatine Kinase CK-MB (CK-2) Total Protein Albumin Free T4 Urine WBC (Auto) 7.0 H 06/18/20 06/18/20 06/18/20 00:10 00:20 03:20 WBC RBC Hgb Hct MCH MCHC Lymph % (Auto) Bibb % (Auto) Bibb # (Auto) Seg Neutrophils % Seg Neuts % (Manual) Lymphocytes % (Manual) Monocytes % (Manual) Seg Neutrophils # Seg Neutrophils # Man Lymphocytes # (Manual) Monocytes # (Manual) Basophils # (Manual) PT INR APTT VBG pH Sodium 160 H Potassium 3.0 L Chloride 118.8 H Carbon Dioxide BUN 89 H Creatinine 3.8 H Glucose 650 H* POC Glucose 291 H Lactic Acid 2.40 H* Calcium 7.8 L Phosphorus Magnesium AST ALT Total Creatine Kinase CK-MB (CK-2) Total Protein Albumin Free T4 Urine WBC (Auto) 06/18/20 06/18/20 06/18/20 05:19 06:27 06:27 WBC RBC Hgb Hct MCH MCHC Lymph % (Auto) Bibb % (Auto) Bibb # (Auto) Seg Neutrophils % Seg Neuts % (Manual) Lymphocytes % (Manual) Monocytes % (Manual) Seg Neutrophils # Seg Neutrophils # Man Lymphocytes # (Manual) Monocytes # (Manual) Basophils # (Manual) PT INR APTT VBG pH Sodium 167 H* Potassium 3.4 L Chloride 126.4 H Carbon Dioxide 21 L BUN 99 H Creatinine 4.5 H Glucose 291 H POC Glucose 276 H Lactic Acid 2.80 H* Calcium 8.1 L Phosphorus Magnesium AST ALT Total Creatine Kinase CK-MB (CK-2) Total Protein Albumin Free T4 Urine WBC (Auto) 06/18/20 06/18/20 06/18/20 06:45 08:40 08:49 WBC RBC Hgb Hct MCH MCHC Lymph % (Auto) Bibb % (Auto) Bibb # (Auto) Seg Neutrophils % Seg Neuts % (Manual) Lymphocytes % (Manual) Monocytes % (Manual) Seg Neutrophils # Seg Neutrophils # Man Lymphocytes # (Manual) Monocytes # (Manual) Basophils # (Manual) PT INR APTT VBG pH Sodium Potassium Chloride Carbon Dioxide BUN Creatinine Glucose POC Glucose 215 H 182 H Lactic Acid 2.20 H* Calcium Phosphorus Magnesium AST ALT Total Creatine Kinase CK-MB (CK-2) Total Protein Albumin Free T4 Urine WBC (Auto) 06/18/20 06/18/20 06/18/20 10:01 10:28 11:40 WBC RBC Hgb Hct MCH MCHC Lymph % (Auto) Bibb % (Auto) Bibb # (Auto) Seg Neutrophils % Seg Neuts % (Manual) Lymphocytes % (Manual) Monocytes % (Manual) Seg Neutrophils # Seg Neutrophils # Man Lymphocytes # (Manual) Monocytes # (Manual) Basophils # (Manual) PT INR APTT VBG pH Sodium 161 H* Potassium Chloride 125.4 H Carbon Dioxide 21 L BUN 98 H Creatinine 5.0 H Glucose 247 H POC Glucose 217 H Lactic Acid 3.20 H* Calcium 7.8 L Phosphorus Magnesium AST ALT Total Creatine Kinase CK-MB (CK-2) Total Protein Albumin Free T4 Urine WBC (Auto) 06/18/20 06/18/20 06/18/20 11:40 11:40 12:33 WBC RBC Hgb Hct MCH MCHC Lymph % (Auto) Bibb % (Auto) Bibb # (Auto) Seg Neutrophils % Seg Neuts % (Manual) Lymphocytes % (Manual) Monocytes % (Manual) Seg Neutrophils # Seg Neutrophils # Man Lymphocytes # (Manual) Monocytes # (Manual) Basophils # (Manual) PT INR APTT VBG pH Sodium Potassium Chloride Carbon Dioxide BUN Creatinine Glucose POC Glucose 199 H Lactic Acid 2.40 H* Calcium Phosphorus Magnesium AST ALT Total Creatine Kinase 07331 H CK-MB (CK-2) Total Protein Albumin Free T4 Urine WBC (Auto) 06/18/20 06/18/20 06/18/20 13:57 16:27 21:58 WBC RBC Hgb Hct MCH MCHC Lymph % (Auto) Bibb % (Auto) Bibb # (Auto) Seg Neutrophils % Seg Neuts % (Manual) Lymphocytes % (Manual) Monocytes % (Manual) Seg Neutrophils # Seg Neutrophils # Man Lymphocytes # (Manual) Monocytes # (Manual) Basophils # (Manual) PT INR APTT VBG pH Sodium Potassium Chloride Carbon Dioxide BUN Creatinine Glucose POC Glucose 198 H 185 H 281 H Lactic Acid Calcium Phosphorus Magnesium AST ALT Total Creatine Kinase CK-MB (CK-2) Total Protein Albumin Free T4 Urine WBC (Auto) 06/19/20 06/19/20 06/19/20 00:55 00:55 04:25 WBC RBC Hgb Hct MCH MCHC Lymph % (Auto) Bibb % (Auto) Bibb # (Auto) Seg Neutrophils % Seg Neuts % (Manual) Lymphocytes % (Manual) Monocytes % (Manual) Seg Neutrophils # Seg Neutrophils # Man Lymphocytes # (Manual) Monocytes # (Manual) Basophils # (Manual) PT INR APTT VBG pH Sodium 164 H* Potassium Chloride 125.8 H Carbon Dioxide 21 L BUN 100 H Creatinine 6.4 H Glucose 370 H POC Glucose 366 H Lactic Acid 2.30 H* Calcium 7.4 L Phosphorus Magnesium AST ALT Total Creatine Kinase CK-MB (CK-2) Total Protein Albumin Free T4 Urine WBC (Auto) 06/19/20 06/19/20 06/19/20 11:49 14:24 15:44 WBC RBC Hgb Hct MCH MCHC Lymph % (Auto) Bibb % (Auto) Bibb # (Auto) Seg Neutrophils % Seg Neuts % (Manual) Lymphocytes % (Manual) Monocytes % (Manual) Seg Neutrophils # Seg Neutrophils # Man Lymphocytes # (Manual) Monocytes # (Manual) Basophils # (Manual) PT INR APTT VBG pH Sodium Potassium Chloride Carbon Dioxide BUN Creatinine Glucose POC Glucose 411 H Lactic Acid 2.90 H* Calcium Phosphorus Magnesium AST ALT Total Creatine Kinase 43611 H CK-MB (CK-2) Total Protein Albumin Free T4 Urine WBC (Auto) 06/19/20 06/19/20 06/19/20 18:41 21:44 22:16 WBC RBC Hgb Hct MCH MCHC Lymph % (Auto) Bibb % (Auto) Bibb # (Auto) Seg Neutrophils % Seg Neuts % (Manual) Lymphocytes % (Manual) Monocytes % (Manual) Seg Neutrophils # Seg Neutrophils # Man Lymphocytes # (Manual) Monocytes # (Manual) Basophils # (Manual) PT INR APTT VBG pH Sodium Potassium Chloride Carbon Dioxide BUN Creatinine Glucose POC Glucose 404 H 333 H Lactic Acid 2.50 H* Calcium Phosphorus Magnesium AST ALT Total Creatine Kinase CK-MB (CK-2) Total Protein Albumin Free T4 Urine WBC (Auto) 06/20/20 06/20/20 06/20/20 00:12 04:37 05:08 WBC RBC Hgb Hct MCH MCHC Lymph % (Auto) Bibb % (Auto) Bibb # (Auto) Seg Neutrophils % Seg Neuts % (Manual) Lymphocytes % (Manual) Monocytes % (Manual) Seg Neutrophils # Seg Neutrophils # Man Lymphocytes # (Manual) Monocytes # (Manual) Basophils # (Manual) PT INR APTT VBG pH Sodium Potassium Chloride Carbon Dioxide BUN Creatinine Glucose POC Glucose 318 H Lactic Acid 2.10 H* Calcium Phosphorus Magnesium AST ALT Total Creatine Kinase 90025 H CK-MB (CK-2) Total Protein Albumin Free T4 Urine WBC (Auto) 06/20/20 06/20/20 06/20/20 10:19 14:47 14:47 WBC 15.1 H RBC Hgb 10.2 L Hct 32.0 L MCH 27 L MCHC Lymph % (Auto) Bibb % (Auto) Bibb # (Auto) Seg Neutrophils % Seg Neuts % (Manual) 79.0 H Lymphocytes % (Manual) 12.0 L Monocytes % (Manual) Seg Neutrophils # Seg Neutrophils # Man 11.9 H Lymphocytes # (Manual) Monocytes # (Manual) 1.1 H Basophils # (Manual) 0.2 H PT INR APTT VBG pH Sodium 156 H Potassium 5.9 H D Chloride 118.3 H Carbon Dioxide 20 L BUN 159 H Creatinine 9.4 H Glucose 283 H POC Glucose 220 H Lactic Acid Calcium 7.7 L Phosphorus Magnesium AST 149 H ALT 89 H Total Creatine Kinase CK-MB (CK-2) Total Protein 5.9 L D Albumin 2.3 L Free T4 Urine WBC (Auto) 06/20/20 06/20/20 06/20/20 17:02 19:43 22:01 WBC RBC Hgb Hct MCH MCHC Lymph % (Auto) Bibb % (Auto) Bibb # (Auto) Seg Neutrophils % Seg Neuts % (Manual) Lymphocytes % (Manual) Monocytes % (Manual) Seg Neutrophils # Seg Neutrophils # Man Lymphocytes # (Manual) Monocytes # (Manual) Basophils # (Manual) PT INR APTT VBG pH Sodium Potassium Chloride Carbon Dioxide BUN Creatinine Glucose POC Glucose 248 H 268 H Lactic Acid Calcium Phosphorus 6.70 H Magnesium AST ALT Total Creatine Kinase CK-MB (CK-2) Total Protein Albumin Free T4 Urine WBC (Auto) 06/21/20 06/21/20 06/21/20 02:22 04:28 09:45 WBC RBC Hgb Hct MCH MCHC Lymph % (Auto) Bibb % (Auto) Bibb # (Auto) Seg Neutrophils % Seg Neuts % (Manual) Lymphocytes % (Manual) Monocytes % (Manual) Seg Neutrophils # Seg Neutrophils # Man Lymphocytes # (Manual) Monocytes # (Manual) Basophils # (Manual) PT INR APTT VBG pH Sodium Potassium Chloride Carbon Dioxide BUN Creatinine Glucose POC Glucose 248 H 237 H 234 H Lactic Acid Calcium Phosphorus Magnesium AST ALT Total Creatine Kinase CK-MB (CK-2) Total Protein Albumin Free T4 Urine WBC (Auto) 06/21/20 06/21/20 06/21/20 15:29 15:29 15:29 WBC 11.8 H RBC 3.51 L Hgb 9.3 L Hct 29.8 L MCH 27 L MCHC 31 L Lymph % (Auto) Bibb % (Auto) Bibb # (Auto) Seg Neutrophils % Seg Neuts % (Manual) 81.0 H Lymphocytes % (Manual) 6.0 L Monocytes % (Manual) 10.0 H Seg Neutrophils # Seg Neutrophils # Man 9.6 H Lymphocytes # (Manual) 0.7 L Monocytes # (Manual) 1.2 H Basophils # (Manual) PT INR APTT VBG pH Sodium 152 H Potassium 6.0 H Chloride 115.0 H Carbon Dioxide 18 L BUN 161 H Creatinine 9.7 H Glucose 310 H POC Glucose Lactic Acid Calcium 7.9 L Phosphorus Magnesium AST ALT Total Creatine Kinase 96327 H CK-MB (CK-2) Total Protein Albumin Free T4 Urine WBC (Auto) 06/21/20 06/22/20 06/22/20 18:07 02:33 05:51 WBC 11.3 H RBC 3.18 L Hgb 8.6 L Hct 26.7 L MCH 27 L MCHC Lymph % (Auto) 13.2 L Bibb % (Auto) 10.8 H Bibb # (Auto) 1.2 H Seg Neutrophils % 75.6 H Seg Neuts % (Manual) Lymphocytes % (Manual) Monocytes % (Manual) Seg Neutrophils # 8.5 H Seg Neutrophils # Man Lymphocytes # (Manual) Monocytes # (Manual) Basophils # (Manual) PT INR APTT VBG pH Sodium Potassium Chloride Carbon Dioxide BUN Creatinine Glucose POC Glucose 320 H 302 H Lactic Acid Calcium Phosphorus Magnesium AST ALT Total Creatine Kinase CK-MB (CK-2) Total Protein Albumin Free T4 Urine WBC (Auto) 06/22/20 06/22/20 06/22/20 05:51 10:57 11:47 WBC RBC Hgb Hct MCH MCHC Lymph % (Auto) Bibb % (Auto) Bibb # (Auto) Seg Neutrophils % Seg Neuts % (Manual) Lymphocytes % (Manual) Monocytes % (Manual) Seg Neutrophils # Seg Neutrophils # Man Lymphocytes # (Manual) Monocytes # (Manual) Basophils # (Manual) PT INR APTT VBG pH Sodium Potassium Chloride Carbon Dioxide BUN 102 H Creatinine 7.1 H Glucose 357 H POC Glucose 438 H Lactic Acid Calcium 8.0 L Phosphorus Magnesium AST ALT Total Creatine Kinase 8530 H CK-MB (CK-2) Total Protein Albumin Free T4 Urine WBC (Auto) 06/23/20 06/23/20 06/23/20 02:12 04:38 05:13 WBC RBC 2.93 L Hgb 8.0 L Hct 24.8 L MCH 27 L MCHC Lymph % (Auto) 13.0 L Bibb % (Auto) 14.1 H Bibb # (Auto) 1.5 H Seg Neutrophils % 72.4 H Seg Neuts % (Manual) Lymphocytes % (Manual) Monocytes % (Manual) Seg Neutrophils # Seg Neutrophils # Man Lymphocytes # (Manual) Monocytes # (Manual) Basophils # (Manual) PT INR APTT VBG pH Sodium Potassium Chloride Carbon Dioxide BUN Creatinine Glucose POC Glucose 417 H 390 H Lactic Acid Calcium Phosphorus Magnesium AST ALT Total Creatine Kinase CK-MB (CK-2) Total Protein Albumin Free T4 Urine WBC (Auto) 06/23/20 06/23/20 06/23/20 05:13 05:13 10:06 WBC RBC Hgb Hct MCH MCHC Lymph % (Auto) Bibb % (Auto) Bibb # (Auto) Seg Neutrophils % Seg Neuts % (Manual) Lymphocytes % (Manual) Monocytes % (Manual) Seg Neutrophils # Seg Neutrophils # Man Lymphocytes # (Manual) Monocytes # (Manual) Basophils # (Manual) PT INR APTT VBG pH Sodium Potassium Chloride Carbon Dioxide BUN 90 H Creatinine 6.2 H Glucose 424 H POC Glucose 248 H Lactic Acid Calcium 7.8 L Phosphorus Magnesium AST ALT Total Creatine Kinase 8540 H CK-MB (CK-2) Total Protein Albumin Free T4 Urine WBC (Auto) 06/23/20 06/23/20 06/23/20 11:44 15:51 20:30 WBC RBC Hgb Hct MCH MCHC Lymph % (Auto) Bibb % (Auto) Bibb # (Auto) Seg Neutrophils % Seg Neuts % (Manual) Lymphocytes % (Manual) Monocytes % (Manual) Seg Neutrophils # Seg Neutrophils # Man Lymphocytes # (Manual) Monocytes # (Manual) Basophils # (Manual) PT INR APTT VBG pH Sodium Potassium Chloride Carbon Dioxide BUN Creatinine Glucose POC Glucose 243 H 283 H 275 H Lactic Acid Calcium Phosphorus Magnesium AST ALT Total Creatine Kinase CK-MB (CK-2) Total Protein Albumin Free T4 Urine WBC (Auto) 06/24/20 06/24/20 06/24/20 04:56 06:35 06:35 WBC 12.1 H RBC 2.78 L Hgb 7.5 L Hct 23.2 L MCH 27 L MCHC Lymph % (Auto) Bibb % (Auto) Bibb # (Auto) Seg Neutrophils % Seg Neuts % (Manual) 81.0 H Lymphocytes % (Manual) Monocytes % (Manual) Seg Neutrophils # Seg Neutrophils # Man 9.8 H Lymphocytes # (Manual) Monocytes # (Manual) Basophils # (Manual) PT INR APTT VBG pH Sodium Potassium Chloride Carbon Dioxide BUN 102 H Creatinine 7.1 H Glucose 324 H POC Glucose 269 H Lactic Acid Calcium Phosphorus Magnesium AST ALT Total Creatine Kinase 6347 H CK-MB (CK-2) Total Protein Albumin Free T4 Urine WBC (Auto) 06/24/20 06/24/20 10:22 12:11 WBC RBC Hgb Hct MCH MCHC Lymph % (Auto) Bibb % (Auto) Bibb # (Auto) Seg Neutrophils % Seg Neuts % (Manual) Lymphocytes % (Manual) Monocytes % (Manual) Seg Neutrophils # Seg Neutrophils # Man Lymphocytes # (Manual) Monocytes # (Manual) Basophils # (Manual) PT INR APTT VBG pH Sodium Potassium Chloride Carbon Dioxide BUN Creatinine Glucose POC Glucose 331 H 303 H Lactic Acid Calcium Phosphorus Magnesium AST ALT Total Creatine Kinase CK-MB (CK-2) Total Protein Albumin Free T4 Urine WBC (Auto) Allied health notes reviewed: nursing
--- NOTE | 2020-06-25 00:43 | Progress Note ---
Assessment and Plan - Patient Problems (1) Sepsis Current Visit: Yes Status: Acute Plan to address problem: Sepsis improved (2) Toxic metabolic encephalopathy Current Visit: Yes Status: Acute Plan to address problem: Resolved, continue current care, (3) DKA (diabetic ketoacidoses) Current Visit: Yes Status: Acute Qualifiers: Diabetes mellitus complication detail: with coma Plan to address problem: DKA resolved, sliding-scale insulin therapy, Accu-Chek, hypoglycemia protocol (4) Rhabdomyolysis Current Visit: Yes Status: Acute Qualifiers: Encounter type: initial encounter Plan to address problem: IV fluid resuscitation therapy, monitor urine output every shift, CK level improving today. Repeat CK in a.m. (5) End stage renal disease Current Visit: Yes Status: Acute Plan to address problem: Hemodialysis catheter placed as per vascular surgery team, dialysis as per renal team. Avoid nephrotoxic agents. (6) DVT prophylaxis Current Visit: Yes Status: Acute Plan to address problem: SCD to bilateral lower extremities while in bed, prophylactic anticoagulation Subjective Date of service: 07/25/20 Principal diagnosis: DKA; Ac encephalopathy; Severe sepsis; Rhabdomyolysis; YUNI. Interval history: History Interval history: 44 YO Male HD #5 with Sepsis, resolved DKA, improved Toxic Metabolic Encephalopathy, ESRD requiring Hemodialysis, Rhabdomyolysis, Hypothermia. Pa tient status improved today. Patient is alert and oriented x3 and resting comfortably in bed. Patient denies pain. Patient states that he is feeling better today. Patient encouraged to increase oral free water intake as tolerated. No reported nursing events. Patient denies pain. Symptomatically better Objective - Constitutional Vitals: Vital Signs - 12hr 06/24/20 06/24/20 06/24/20 12:45 13:00 13:15 Temperature Pulse Rate 111 H 110 H 112 H Respiratory Rate Blood Pressure 122/76 108/76 120/70 Blood Pressure [Left] O2 Sat by Pulse Oximetry 06/24/20 06/24/20 06/24/20 13:30 13:45 14:00 Temperature Pulse Rate 110 H 109 H 107 H Respiratory Rate Blood Pressure 112/66 107/73 113/80 Blood Pressure [Left] O2 Sat by Pulse Oximetry 06/24/20 06/24/20 06/24/20 14:15 14:30 14:45 Temperature Pulse Rate 108 H 108 H 106 H Respiratory Rate Blood Pressure 112/78 118/82 108/78 Blood Pressure [Left] O2 Sat by Pulse Oximetry 06/24/20 06/24/20 06/24/20 15:00 15:30 16:04 Temperature 98.8 F Pulse Rate 106 H 106 H 108 H Respiratory 16 Rate Blood Pressure 126/80 125/80 Blood Pressure [Left] O2 Sat by Pulse Oximetry 06/24/20 06/24/20 06/24/20 16:36 17:18 20:04 Temperature 98.5 F 98.5 F Pulse Rate 104 H 104 H 115 H Respiratory 18 20 Rate Blood Pressure 115/82 113/65 Blood Pressure 115/84 [Left] O2 Sat by Pulse 95 95 91 Oximetry 06/24/20 23:46 Temperature 98.0 F Pulse Rate 115 H Respiratory 18 Rate Blood Pressure 127/84 Blood Pressure [Left] O2 Sat by Pulse 94 Oximetry General appearance: Present: no acute distress, well-nourished - EENT Eyes: PERRL, EOM intact ENT: hearing intact, clear oral mucosa Ears: bilateral: normal - Neck Neck: supple, normal ROM - Respiratory Respiratory effort: normal Respiratory: bilateral: CTA - Breasts Breasts: normal - Cardiovascular Heart rate: 78 Rhythm: regular Heart Sounds: Present: S1 & S2. Absent: gallop, rub Extremities: pulses intact, No edema, normal color, Full ROM - Gastrointestinal General gastrointestinal: Present: soft, non-tender, non-distended, normal bowel sounds - Genitourinary Male genitourinary: normal - Integumentary Integumentary: clear, warm, dry - Musculoskeletal Musculoskeletal: 1, strength equal bilaterally - Neurologic Neurologic: moves all extremities - Psychiatric Psychiatric: memory intact, appropriate mood/affect, intact judgment & insight - Labs CBC & Chem 7: 06/27/20 07:10 06/27/20 07:10 Labs: Abnormal lab results 06/24/20 06/24/20 06/24/20 Range/Units 04:56 06:35 06:35 WBC 12.1 H (4.5-11.0) K/mm3 RBC 2.78 L (3.65-5.03) M/mm3 Hgb 7.5 L (11.8-15.2) gm/dl Hct 23.2 L (35.5-45.6) % MCH 27 L (28-32) pg Seg Neuts % (Manual) 81.0 H (40.0-70.0) % Seg Neutrophils # Man 9.8 H (1.8-7.7) K/mm3 ABG pH (7.320-7.450) POC ABG pO2 (83-108) mmHg ABG Hemoglobin (12.0-17.5) ABG Oxyhemoglobin (94-98) ABG Sodium (136.0-145.0) mmol/L ABG Potassium (3.40-4.50) mmol/L ABG Glucose (65-95) mg/dL Carboxyhemoglobin (0.5-1.5) BUN 102 H (9-20) mg/dL Creatinine 7.1 H (0.8-1.3) mg/dL Glucose 324 H (75-100) mg/dL POC Glucose 269 H (70-105) mg/dL Total Creatine Kinase 6347 H (55-170) units/L Arterial Blood Glucose (65-95) mg/dL Arterial Blood Ionized Calcium (4.6-5.3) mg/dL 06/24/20 06/24/20 06/24/20 Range/Units 10:22 12:11 16:17 WBC (4.5-11.0) K/mm3 RBC (3.65-5.03) M/mm3 Hgb (11.8-15.2) gm/dl Hct (35.5-45.6) % MCH (28-32) pg Seg Neuts % (Manual) (40.0-70.0) % Seg Neutrophils # Man (1.8-7.7) K/mm3 ABG pH 7.545 H (7.320-7.450) POC ABG pO2 68.9 L (83-108) mmHg ABG Hemoglobin 6.8 L (12.0-17.5) ABG Oxyhemoglobin 92.4 L (94-98) ABG Sodium 135.1 L (136.0-145.0) mmol/L ABG Potassium 3.0 L (3.40-4.50) mmol/L ABG Glucose 199 H (65-95) mg/dL Carboxyhemoglobin 1.7 H (0.5-1.5) BUN (9-20) mg/dL Creatinine (0.8-1.3) mg/dL Glucose (75-100) mg/dL POC Glucose 331 H 303 H (70-105) mg/dL Total Creatine Kinase (55-170) units/L Arterial Blood Glucose 199 H (65-95) mg/dL Arterial Blood Ionized Calcium 4.3 L (4.6-5.3) mg/dL 06/24/20 Range/Units 16:22 WBC (4.5-11.0) K/mm3 RBC (3.65-5.03) M/mm3 Hgb (11.8-15.2) gm/dl Hct (35.5-45.6) % MCH (28-32) pg Seg Neuts % (Manual) (40.0-70.0) % Seg Neutrophils # Man (1.8-7.7) K/mm3 ABG pH (7.320-7.450) POC ABG pO2 (83-108) mmHg ABG Hemoglobin (12.0-17.5) ABG Oxyhemoglobin (94-98) ABG Sodium (136.0-145.0) mmol/L ABG Potassium (3.40-4.50) mmol/L ABG Glucose (65-95) mg/dL Carboxyhemoglobin (0.5-1.5) BUN (9-20) mg/dL Creatinine (0.8-1.3) mg/dL Glucose (75-100) mg/dL POC Glucose 173 H (70-105) mg/dL Total Creatine Kinase (55-170) units/L Arterial Blood Glucose (65-95) mg/dL Arterial Blood Ionized Calcium (4.6-5.3) mg/dL HEART Score - HEART Score Troponin: Troponin T < 0.010 ng/mL (0.00-0.029) 06/17/20 11:24
[2020-06-25] MEDS: INSULIN LISPRO 100 UNIT/ML VIAL 3 mL SUB-Q SCH ×5 (01:31→22:13)
[2020-06-25] MEDS: INSULIN GLARGINE 100 UNITS/ML SUB-Q SCH ×3 (01:32→22:13)
[2020-06-25 05:43] LABS: Hematocrit 21.2 % (35.5-45.6); Hemoglobin 6.9 gm/dl (11.8-15.2); Mean Corpuscular HGB Conc 33 % (32-34); Mean Corpuscular Volume 83 fl (84-94); Platelet Count 213 K/mm3 (140-440); Red Blood Count 2.56 M/mm3 (3.65-5.03); Red Cell Distribution Width 13.9 % (13.2-15.2)
[2020-06-25 05:55] LABS: Calcium 8.2 mg/dL (8.4-10.2)
[2020-06-25 06:00] LABS: Basophils % (Auto) 0.2 % (0.0-1.8); Eosinophils # (Auto) 0.1 K/mm3 (0.0-0.4); Eosinophils % (Auto) 0.5 % (0.0-4.3); Lymphocytes # (Auto) 1.8 K/mm3 (1.2-5.4); Lymphocytes % (Auto) 15.4 % (13.4-35.0); Monocytes % (Auto) 16.3 % (0.0-7.3)
--- NOTE | 2020-06-25 08:14 | Progress Note ---
Assessment and Plan Assessment * Acute kidney injury vs advanced CKD, unknown previous baseline * Uremia * Severe hypernatremia * Hyperkalemia * Rhabdomyolysis, severe * Acidosis * Acute encephalopathy * Sepsis * DKA Recommendations * Plan for HD q MWF and prn * stopped ivfs * S/p Garcia, strict I's/O * check 24hr crcl * Trend CPK daily, improving * F/u renal ultrasoud noted * DKA protocol per primary * Renally dose medications * Avoid nephrotoxins Subjective Date of service: 06/25/20 Principal diagnosis: DKA; Ac encephalopathy; Severe sepsis; Rhabdomyolysis; YUNI. Interval history: resting in bed today Objective - Exam Narrative Exam: Constitutional: No acute distress Head: Normocephalic/atraumatic Neck: Supple Lungs: Clear to auscultation bilaterally Cardiovascular: RRR, no M/R/G Abdomen: Soft, nontender, NABS Back, nontender Extremities: No edema, pulses within normal limits Skin: Intact, no rash Neuro: Tremulous, oriented only to self and time - Vital Signs Vital signs: Vital Signs - 12hr 06/24/20 06/25/20 23:46 05:20 Temperature 98.0 F 98.0 F Pulse Rate 115 H 106 H Respiratory 18 18 Rate Blood Pressure 127/84 108/58 O2 Sat by Pulse 94 96 Oximetry - Lab 06/25/20 04:44 06/25/20 04:44 Most recent lab results ABG pH 7.545 (7.320-7.450) H 06/24/20 16:17 Calcium 8.2 mg/dL (8.4-10.2) L 06/25/20 04:44 Phosphorus 6.70 mg/dL (2.5-4.5) H 06/20/20 19:43 Magnesium 4.50 mg/dL (1.7-2.3) H 06/17/20 15:33 Medications & Allergies - Medications Allergies/Adverse Reactions: Allergies No Known Allergies Allergy (Unverified 06/21/20 20:38) Home Medications: Home Medications Medication Instructions Recorded Confirmed Last Taken Type Atenolol 50 mg PO DAILY 06/23/20 06/23/20 Unknown History Insulin Degludec [Tresiba 52 unit SQ QHS 06/23/20 06/23/20 Unknown History Flextouch U-200] Insulin Lispro [Humalog Kwikpen 15 units SQ AC 06/23/20 06/23/20 Unknown History 200 UNITS/ML] Lisinopril [Zestril] 10 mg PO DAILY 06/23/20 06/23/20 Unknown History Semaglutide [Ozempic] 0.25 mg SQ 1XW 06/23/20 06/23/20 Unknown History Simvastatin 40 mg PO DAILY 06/23/20 06/23/20 Unknown History Active Medications: Generic Name Dose Route Start Last Admin Trade Name Freq PRN Reason Stop Dose Admin Acetaminophen 650 mg 06/17/20 13:40 06/24/20 10:34 Acetaminophen 325 Mg Tab PO 650 mg Q6H PRN Administration Pain, Mild (1-3) Albuterol 2.5 mg 06/17/20 13:40 Albuterol 2.5 Mg/3 Ml Nebu IH Q3HRT PRN Shortness Of Breath Dextrose 50 ml 06/19/20 15:28 Dextrose 50% In Water (25gm) 50 Ml Syringe IV Q30MIN PRN Hypoglycemia Protocol Famotidine 20 mg 06/19/20 10:00 06/24/20 10:34 Famotidine 20 Mg Tab PO 20 mg QDAY JERMAINE Administration Heparin Sodium (Porcine) 5,000 unit 06/17/20 22:00 06/24/20 23:40 Heparin 5,000 Unit/1 Ml Vial SUB-Q 5,000 unit Q12HR JERMAINE Administration Hydromorphone HCl 0.25 mg 06/17/20 13:40 06/22/20 23:58 Hydromorphone 1 Mg/1 Ml Inj IV 0.25 mg Q4H PRN Administration Pain, Moderate (4-6) Levofloxacin/Dextrose 500 mg in 100 mls @ 100 mls/hr 06/21/20 15:00 06/23/20 15:07 Levaquin 500mg/100ml IV 06/25/20 15:59 100 mls/hr Q48H JERMAINE Administration Sodium Chloride 100 mls @ 999 mls/hr 06/24/20 12:00 Nacl 0.9% IV MARIELLE PRN Hypotension Insulin Glargine 15 units 06/23/20 23:00 06/25/20 01:32 Insulin Glargine 100 Units/Ml SUB-Q 15 units BID JERMAINE Administration Insulin Human Lispro 0 unit 06/18/20 16:00 06/25/20 06:54 Insulin Lispro 100 Unit/Ml Vial 3 Ml SUB-Q 6 unit Q6H JERMAINE Administration Protocol Sodium Bicarbonate 1,300 mg 06/24/20 12:00 06/24/20 23:39 Sodium Bicarbonate 650 Mg Tab PO 1,300 mg BID JERMAINE Administration Sodium Chloride 10 ml 06/17/20 22:00 06/24/20 23:41 Sodium Chloride 0.9% 10 Ml Flush Syringe IV 10 ml BID JERMAINE Administration Sodium Chloride 10 ml 06/17/20 13:40 Sodium Chloride 0.9% 10 Ml Flush Syringe IV PRN PRN LINE FLUSH
[2020-06-25] MEDS ORDERED: EPOETIN ALFA 20,000 UNIT/1 ML INJ IV PRN (08:16)
[2020-06-25] MEDS: SODIUM BICARBONATE 650 MG TAB PO SCH ×2 (11:00→22:31)
[2020-06-25] MEDS: HEPARIN 5,000 UNIT/1 ML VIAL SUB-Q SCH ×2 (11:00→22:14)
[2020-06-25] MEDS: ACETAMINOPHEN 325 MG TAB PO PRN (15:09)
[2020-06-25] MEDS: FAMOTIDINE 20 MG TAB PO SCH (15:13)
--- NOTE | 2020-06-25 15:46 | Progress Note ---
Assessment and Plan Diabetic ketoacidosis. Acute toxic metabolic encephalopathy. Severe sepsis at presentation. Leukocytosis, presumably stress leukocytosis. Hypernatremia. Rhabdomyolysis. Acute kidney injury - no new issues, continue care as below; - continue HD/UF for toxin and volume control - supplemental oxygen to keep O2 sats > 90% - prn Bronchodilators (INÉS) with pulm hygiene per RT - continue to avoid nephrotoxins, renally dose all medications - mobility protocols to prevent pressure ulcers - PT/OT as tolerated - prn analgesia per pain score - continue accuchecks with glycemic control per SSI for target blood glucose < 180 mg/dL - GI & VTE prophylaxis - Flu & pneumovax per protocol - continue other care per attending / other consultants ... re-evaluate in am & prn Subjective Date of service: 06/25/20 Principal diagnosis: DKA; Ac encephalopathy; Severe sepsis; Rhabdomyolysis; YUNI. Interval history: Patient is seen today for: Diabetic ketoacidosis; Acute toxic metabolic encephalopathy; Severe sepsis; Rhabdomyolysis; Acute kidney injury Seen and examined at bedside; 24hour events reviewed; nursing and respiratory care staff consulted; no adverse overnight events reported to me; resting in bed; states he is fine; No N/V/F/C Objective Vital Signs - 12hr 06/25/20 06/25/20 06/25/20 05:20 08:25 11:00 Temperature 98.0 F 99.8 F H 99.7 F H Pulse Rate 106 H 108 H 111 H Respiratory 18 16 16 Rate Blood Pressure 108/58 108/69 122/63 Blood Pressure [Left] O2 Sat by Pulse 96 93 Oximetry 06/25/20 06/25/20 06/25/20 11:15 11:30 11:45 Temperature Pulse Rate 110 H 111 H 116 H Respiratory Rate Blood Pressure 128/74 128/74 112/70 Blood Pressure [Left] O2 Sat by Pulse Oximetry 06/25/20 06/25/20 06/25/20 12:00 12:15 12:30 Temperature Pulse Rate 110 H 108 H 108 H Respiratory Rate Blood Pressure 116/64 117/64 114/68 Blood Pressure [Left] O2 Sat by Pulse Oximetry 06/25/20 06/25/20 06/25/20 12:45 13:00 13:15 Temperature Pulse Rate 104 H 106 H 105 H Respiratory Rate Blood Pressure 121/67 124/72 123/68 Blood Pressure [Left] O2 Sat by Pulse Oximetry 06/25/20 06/25/20 06/25/20 13:30 13:45 14:02 Temperature 98.1 F Pulse Rate 106 H 104 H 106 H Respiratory 16 Rate Blood Pressure 125/74 130/77 126/69 Blood Pressure [Left] O2 Sat by Pulse Oximetry 06/25/20 15:04 Temperature 100.2 F H Pulse Rate 110 H Respiratory 18 Rate Blood Pressure Blood Pressure 114/75 [Left] O2 Sat by Pulse 93 Oximetry Constitutional: no acute distress, other (middle aged male with normal respiratory effort at rest) Eyes: non-icteric ENT: oropharynx moist Neck: supple, no lymphadenopathy, no JVD Effort: normal Ascultation: Bilateral: clear Percussion: Bilateral: not dull Cardiovascular: regular rate and rhythm Gastrointestinal: normoactive bowel sounds, soft, non-tender, non-distended Integumentary: rash (xeroderma) Extremities: no cyanosis, no edema, pulses normal, no ischemia or petechiae Neurologic: non-focal exam, pupils equal and round, CN II-XII normal, motor strength normal and Psychiatric: mood appropriate, affect normal CBC and BMP: 06/26/20 07:18 06/26/20 07:18 ABG, PT/INR, D-dimer: ABG ABG pH 7.545 (7.320-7.450) H 06/24/20 16:17 POC ABG pCO2 34.2 mmHg (32.0-48.0) 06/24/20 16:17 POC ABG pO2 68.9 mmHg (83-108) L 06/24/20 16:17 POC ABG HCO3 28.9 06/24/20 16:17 PT/INR, D-dimer PT 22.1 Sec. (12.2-14.9) H 06/17/20 11:24 INR 1.92 (0.87-1.13) H 06/17/20 11:24 Abnormal lab findings: Abnormal Labs 06/17/20 06/17/20 06/17/20 11:24 11:24 11:24 WBC 14.7 H RBC 5.38 H Hgb Hct 49.1 H MCV MCH 27 L MCHC 29 L Lymph % (Auto) 9.9 L [place] % (Auto) [place] # (Auto) Seg Neutrophils % 86.8 H Seg Neuts % (Manual) Lymphocytes % (Manual) Monocytes % (Manual) Seg Neutrophils # 12.8 H Seg Neutrophils # Man Lymphocytes # (Manual) Monocytes # (Manual) Basophils # (Manual) PT 22.1 H INR 1.92 H APTT 38.9 H ABG pH POC ABG pO2 ABG Hemoglobin ABG Oxyhemoglobin ABG Sodium ABG Potassium ABG Glucose VBG pH Carboxyhemoglobin Sodium 149 H Potassium Chloride Carbon Dioxide BUN 84 H Creatinine 3.6 H Glucose 1394 H* POC Glucose Lactic Acid Calcium Phosphorus Magnesium AST 59 H ALT Total Creatine Kinase 5507 H CK-MB (CK-2) 7.9 H Total Protein 9.0 H Albumin 3.7 L Free T4 Arterial Blood Glucose Arterial Blood Ionized Calcium Urine WBC (Auto) 06/17/20 06/17/20 06/17/20 11:24 11:24 11:24 WBC RBC Hgb Hct MCV MCH MCHC Lymph % (Auto) [place] % (Auto) [place] # (Auto) Seg Neutrophils % Seg Neuts % (Manual) Lymphocytes % (Manual) Monocytes % (Manual) Seg Neutrophils # Seg Neutrophils # Man Lymphocytes # (Manual) Monocytes # (Manual) Basophils # (Manual) PT INR APTT ABG pH POC ABG pO2 ABG Hemoglobin ABG Oxyhemoglobin ABG Sodium ABG Potassium ABG Glucose VBG pH 7.123 L* Carboxyhemoglobin Sodium Potassium Chloride Carbon Dioxide BUN Creatinine Glucose POC Glucose Lactic Acid Calcium Phosphorus Magnesium 6.20 H AST ALT Total Creatine Kinase CK-MB (CK-2) Total Protein Albumin Free T4 1.65 H Arterial Blood Glucose Arterial Blood Ionized Calcium Urine WBC (Auto) 06/17/20 06/17/20 06/17/20 15:27 15:33 15:33 WBC RBC Hgb Hct MCV MCH MCHC Lymph % (Auto) [place] % (Auto) [place] # (Auto) Seg Neutrophils % Seg Neuts % (Manual) Lymphocytes % (Manual) Monocytes % (Manual) Seg Neutrophils # Seg Neutrophils # Man Lymphocytes # (Manual) Monocytes # (Manual) Basophils # (Manual) PT INR APTT ABG pH POC ABG pO2 ABG Hemoglobin ABG Oxyhemoglobin ABG Sodium ABG Potassium ABG Glucose VBG pH Carboxyhemoglobin Sodium Potassium Chloride Carbon Dioxide BUN Creatinine Glucose 1086 H* POC Glucose > 600 H Lactic Acid Calcium Phosphorus 9.40 H Magnesium 4.50 H AST ALT Total Creatine Kinase CK-MB (CK-2) Total Protein Albumin Free T4 Arterial Blood Glucose Arterial Blood Ionized Calcium Urine WBC (Auto) 06/17/20 06/17/20 06/17/20 16:58 18:39 18:41 WBC RBC Hgb Hct MCV MCH MCHC Lymph % (Auto) [place] % (Auto) [place] # (Auto) Seg Neutrophils % Seg Neuts % (Manual) Lymphocytes % (Manual) Monocytes % (Manual) Seg Neutrophils # Seg Neutrophils # Man Lymphocytes # (Manual) Monocytes # (Manual) Basophils # (Manual) PT INR APTT ABG pH POC ABG pO2 ABG Hemoglobin ABG Oxyhemoglobin ABG Sodium ABG Potassium ABG Glucose VBG pH Carboxyhemoglobin Sodium 155 H 154 H Potassium 3.0 L D 2.8 L* Chloride 114.0 H 117.3 H Carbon Dioxide 20 L 19 L BUN 83 H 84 H Creatinine 3.2 H 3.3 H Glucose 1046 H* 830 H* POC Glucose > 600 H Lactic Acid Calcium 7.8 L D 7.9 L Phosphorus Magnesium AST ALT Total Creatine Kinase CK-MB (CK-2) Total Protein Albumin Free T4 Arterial Blood Glucose Arterial Blood Ionized Calcium Urine WBC (Auto) 06/17/20 06/17/20 06/17/20 21:15 21:15 Unknown WBC RBC Hgb Hct MCV MCH MCHC Lymph % (Auto) [place] % (Auto) [place] # (Auto) Seg Neutrophils % Seg Neuts % (Manual) Lymphocytes % (Manual) Monocytes % (Manual) Seg Neutrophils # Seg Neutrophils # Man Lymphocytes # (Manual) Monocytes # (Manual) Basophils # (Manual) PT INR APTT ABG pH POC ABG pO2 ABG Hemoglobin ABG Oxyhemoglobin ABG Sodium ABG Potassium ABG Glucose VBG pH Carboxyhemoglobin Sodium 157 H Potassium 2.9 L* Chloride 118.8 H Carbon Dioxide 19 L BUN 84 H Creatinine 3.3 H Glucose 666 H* POC Glucose Lactic Acid 2.80 H* Calcium 7.8 L Phosphorus Magnesium AST ALT Total Creatine Kinase CK-MB (CK-2) Total Protein Albumin Free T4 Arterial Blood Glucose Arterial Blood Ionized Calcium Urine WBC (Auto) 7.0 H 06/18/20 06/18/20 06/18/20 00:10 00:20 03:20 WBC RBC Hgb Hct MCV MCH MCHC Lymph % (Auto) [place] % (Auto) [place] # (Auto) Seg Neutrophils % Seg Neuts % (Manual) Lymphocytes % (Manual) Monocytes % (Manual) Seg Neutrophils # Seg Neutrophils # Man Lymphocytes # (Manual) Monocytes # (Manual) Basophils # (Manual) PT INR APTT ABG pH POC ABG pO2 ABG Hemoglobin ABG Oxyhemoglobin ABG Sodium ABG Potassium ABG Glucose VBG pH Carboxyhemoglobin Sodium 160 H Potassium 3.0 L Chloride 118.8 H Carbon Dioxide BUN 89 H Creatinine 3.8 H Glucose 650 H* POC Glucose 291 H Lactic Acid 2.40 H* Calcium 7.8 L Phosphorus Magnesium AST ALT Total Creatine Kinase CK-MB (CK-2) Total Protein Albumin Free T4 Arterial Blood Glucose Arterial Blood Ionized Calcium Urine WBC (Auto) 06/18/20 06/18/20 06/18/20 05:19 06:27 06:27 WBC RBC Hgb Hct MCV MCH MCHC Lymph % (Auto) [place] % (Auto) [place] # (Auto) Seg Neutrophils % Seg Neuts % (Manual) Lymphocytes % (Manual) Monocytes % (Manual) Seg Neutrophils # Seg Neutrophils # Man Lymphocytes # (Manual) Monocytes # (Manual) Basophils # (Manual) PT INR APTT ABG pH POC ABG pO2 ABG Hemoglobin ABG Oxyhemoglobin ABG Sodium ABG Potassium ABG Glucose VBG pH Carboxyhemoglobin Sodium 167 H* Potassium 3.4 L Chloride 126.4 H Carbon Dioxide 21 L BUN 99 H Creatinine 4.5 H Glucose 291 H POC Glucose 276 H Lactic Acid 2.80 H* Calcium 8.1 L Phosphorus Magnesium AST ALT Total Creatine Kinase CK-MB (CK-2) Total Protein Albumin Free T4 Arterial Blood Glucose Arterial Blood Ionized Calcium Urine WBC (Auto) 06/18/20 06/18/20 06/18/20 06:45 08:40 08:49 WBC RBC Hgb Hct MCV MCH MCHC Lymph % (Auto) [place] % (Auto) [place] # (Auto) Seg Neutrophils % Seg Neuts % (Manual) Lymphocytes % (Manual) Monocytes % (Manual) Seg Neutrophils # Seg Neutrophils # Man Lymphocytes # (Manual) Monocytes # (Manual) Basophils # (Manual) PT INR APTT ABG pH POC ABG pO2 ABG Hemoglobin ABG Oxyhemoglobin ABG Sodium ABG Potassium ABG Glucose VBG pH Carboxyhemoglobin Sodium Potassium Chloride Carbon Dioxide BUN Creatinine Glucose POC Glucose 215 H 182 H Lactic Acid 2.20 H* Calcium Phosphorus Magnesium AST ALT Total Creatine Kinase CK-MB (CK-2) Total Protein Albumin Free T4 Arterial Blood Glucose Arterial Blood Ionized Calcium Urine WBC (Auto) 06/18/20 06/18/20 06/18/20 10:01 10:28 11:40 WBC RBC Hgb Hct MCV MCH MCHC Lymph % (Auto) [place] % (Auto) [place] # (Auto) Seg Neutrophils % Seg Neuts % (Manual) Lymphocytes % (Manual) Monocytes % (Manual) Seg Neutrophils # Seg Neutrophils # Man Lymphocytes # (Manual) Monocytes # (Manual) Basophils # (Manual) PT INR APTT ABG pH POC ABG pO2 ABG Hemoglobin ABG Oxyhemoglobin ABG Sodium ABG Potassium ABG Glucose VBG pH Carboxyhemoglobin Sodium 161 H* Potassium Chloride 125.4 H Carbon Dioxide 21 L BUN 98 H Creatinine 5.0 H Glucose 247 H POC Glucose 217 H Lactic Acid 3.20 H* Calcium 7.8 L Phosphorus Magnesium AST ALT Total Creatine Kinase CK-MB (CK-2) Total Protein Albumin Free T4 Arterial Blood Glucose Arterial Blood Ionized Calcium Urine WBC (Auto) 06/18/20 06/18/20 06/18/20 11:40 11:40 12:33 WBC RBC Hgb Hct MCV MCH MCHC Lymph % (Auto) [place] % (Auto) [place] # (Auto) Seg Neutrophils % Seg Neuts % (Manual) Lymphocytes % (Manual) Monocytes % (Manual) Seg Neutrophils # Seg Neutrophils # Man Lymphocytes # (Manual) Monocytes # (Manual) Basophils # (Manual) PT INR APTT ABG pH POC ABG pO2 ABG Hemoglobin ABG Oxyhemoglobin ABG Sodium ABG Potassium ABG Glucose VBG pH Carboxyhemoglobin Sodium Potassium Chloride Carbon Dioxide BUN Creatinine Glucose POC Glucose 199 H Lactic Acid 2.40 H* Calcium Phosphorus Magnesium AST ALT Total Creatine Kinase 60406 H CK-MB (CK-2) Total Protein Albumin Free T4 Arterial Blood Glucose Arterial Blood Ionized Calcium Urine WBC (Auto) 06/18/20 06/18/20 06/18/20 13:57 16:27 21:58 WBC RBC Hgb Hct MCV MCH MCHC Lymph % (Auto) [place] % (Auto) [place] # (Auto) Seg Neutrophils % Seg Neuts % (Manual) Lymphocytes % (Manual) Monocytes % (Manual) Seg Neutrophils # Seg Neutrophils # Man Lymphocytes # (Manual) Monocytes # (Manual) Basophils # (Manual) PT INR APTT ABG pH POC ABG pO2 ABG Hemoglobin ABG Oxyhemoglobin ABG Sodium ABG Potassium ABG Glucose VBG pH Carboxyhemoglobin Sodium Potassium Chloride Carbon Dioxide BUN Creatinine Glucose POC Glucose 198 H 185 H 281 H Lactic Acid Calcium Phosphorus Magnesium AST ALT Total Creatine Kinase CK-MB (CK-2) Total Protein Albumin Free T4 Arterial Blood Glucose Arterial Blood Ionized Calcium Urine WBC (Auto) 06/19/20 06/19/20 06/19/20 00:55 00:55 04:25 WBC RBC Hgb Hct MCV MCH MCHC Lymph % (Auto) [place] % (Auto) [place] # (Auto) Seg Neutrophils % Seg Neuts % (Manual) Lymphocytes % (Manual) Monocytes % (Manual) Seg Neutrophils # Seg Neutrophils # Man Lymphocytes # (Manual) Monocytes # (Manual) Basophils # (Manual) PT INR APTT ABG pH POC ABG pO2 ABG Hemoglobin ABG Oxyhemoglobin ABG Sodium ABG Potassium ABG Glucose VBG pH Carboxyhemoglobin Sodium 164 H* Potassium Chloride 125.8 H Carbon Dioxide 21 L BUN 100 H Creatinine 6.4 H Glucose 370 H POC Glucose 366 H Lactic Acid 2.30 H* Calcium 7.4 L Phosphorus Magnesium AST ALT Total Creatine Kinase CK-MB (CK-2) Total Protein Albumin Free T4 Arterial Blood Glucose Arterial Blood Ionized Calcium Urine WBC (Auto) 06/19/20 06/19/20 06/19/20 11:49 14:24 15:44 WBC RBC Hgb Hct MCV MCH MCHC Lymph % (Auto) [place] % (Auto) [place] # (Auto) Seg Neutrophils % Seg Neuts % (Manual) Lymphocytes % (Manual) Monocytes % (Manual) Seg Neutrophils # Seg Neutrophils # Man Lymphocytes # (Manual) Monocytes # (Manual) Basophils # (Manual) PT INR APTT ABG pH POC ABG pO2 ABG Hemoglobin ABG Oxyhemoglobin ABG Sodium ABG Potassium ABG Glucose VBG pH Carboxyhemoglobin Sodium Potassium Chloride Carbon Dioxide BUN Creatinine Glucose POC Glucose 411 H Lactic Acid 2.90 H* Calcium Phosphorus Magnesium AST ALT Total Creatine Kinase 31553 H CK-MB (CK-2) Total Protein Albumin Free T4 Arterial Blood Glucose Arterial Blood Ionized Calcium Urine WBC (Auto) 06/19/20 06/19/20 06/19/20 18:41 21:44 22:16 WBC RBC Hgb Hct MCV MCH MCHC Lymph % (Auto) [place] % (Auto) [place] # (Auto) Seg Neutrophils % Seg Neuts % (Manual) Lymphocytes % (Manual) Monocytes % (Manual) Seg Neutrophils # Seg Neutrophils # Man Lymphocytes # (Manual) Monocytes # (Manual) Basophils # (Manual) PT INR APTT ABG pH POC ABG pO2 ABG Hemoglobin ABG Oxyhemoglobin ABG Sodium ABG Potassium ABG Glucose VBG pH Carboxyhemoglobin Sodium Potassium Chloride Carbon Dioxide BUN Creatinine Glucose POC Glucose 404 H 333 H Lactic Acid 2.50 H* Calcium Phosphorus Magnesium AST ALT Total Creatine Kinase CK-MB (CK-2) Total Protein Albumin Free T4 Arterial Blood Glucose Arterial Blood Ionized Calcium Urine WBC (Auto) 06/20/20 06/20/20 06/20/20 00:12 04:37 05:08 WBC RBC Hgb Hct MCV MCH MCHC Lymph % (Auto) [place] % (Auto) [place] # (Auto) Seg Neutrophils % Seg Neuts % (Manual) Lymphocytes % (Manual) Monocytes % (Manual) Seg Neutrophils # Seg Neutrophils # Man Lymphocytes # (Manual) Monocytes # (Manual) Basophils # (Manual) PT INR APTT ABG pH POC ABG pO2 ABG Hemoglobin ABG Oxyhemoglobin ABG Sodium ABG Potassium ABG Glucose VBG pH Carboxyhemoglobin Sodium Potassium Chloride Carbon Dioxide BUN Creatinine Glucose POC Glucose 318 H Lactic Acid 2.10 H* Calcium Phosphorus Magnesium AST ALT Total Creatine Kinase 11384 H CK-MB (CK-2) Total Protein Albumin Free T4 Arterial Blood Glucose Arterial Blood Ionized Calcium Urine WBC (Auto) 06/20/20 06/20/20 06/20/20 10:19 14:47 14:47 WBC 15.1 H RBC Hgb 10.2 L Hct 32.0 L MCV MCH 27 L MCHC Lymph % (Auto) [place] % (Auto) [place] # (Auto) Seg Neutrophils % Seg Neuts % (Manual) 79.0 H Lymphocytes % (Manual) 12.0 L Monocytes % (Manual) Seg Neutrophils # Seg Neutrophils # Man 11.9 H Lymphocytes # (Manual) Monocytes # (Manual) 1.1 H Basophils # (Manual) 0.2 H PT INR APTT ABG pH POC ABG pO2 ABG Hemoglobin ABG Oxyhemoglobin ABG Sodium ABG Potassium ABG Glucose VBG pH Carboxyhemoglobin Sodium 156 H Potassium 5.9 H D Chloride 118.3 H Carbon Dioxide 20 L BUN 159 H Creatinine 9.4 H Glucose 283 H POC Glucose 220 H Lactic Acid Calcium 7.7 L Phosphorus Magnesium AST 149 H ALT 89 H Total Creatine Kinase CK-MB (CK-2) Total Protein 5.9 L D Albumin 2.3 L Free T4 Arterial Blood Glucose Arterial Blood Ionized Calcium Urine WBC (Auto) 06/20/20 06/20/20 06/20/20 17:02 19:43 22:01 WBC RBC Hgb Hct MCV MCH MCHC Lymph % (Auto) [place] % (Auto) [place] # (Auto) Seg Neutrophils % Seg Neuts % (Manual) Lymphocytes % (Manual) Monocytes % (Manual) Seg Neutrophils # Seg Neutrophils # Man Lymphocytes # (Manual) Monocytes # (Manual) Basophils # (Manual) PT INR APTT ABG pH POC ABG pO2 ABG Hemoglobin ABG Oxyhemoglobin ABG Sodium ABG Potassium ABG Glucose VBG pH Carboxyhemoglobin Sodium Potassium Chloride Carbon Dioxide BUN Creatinine Glucose POC Glucose 248 H 268 H Lactic Acid Calcium Phosphorus 6.70 H Magnesium AST ALT Total Creatine Kinase CK-MB (CK-2) Total Protein Albumin Free T4 Arterial Blood Glucose Arterial Blood Ionized Calcium Urine WBC (Auto) 06/21/20 06/21/20 06/21/20 02:22 04:28 09:45 WBC RBC Hgb Hct MCV MCH MCHC Lymph % (Auto) [place] % (Auto) [place] # (Auto) Seg Neutrophils % Seg Neuts % (Manual) Lymphocytes % (Manual) Monocytes % (Manual) Seg Neutrophils # Seg Neutrophils # Man Lymphocytes # (Manual) Monocytes # (Manual) Basophils # (Manual) PT INR APTT ABG pH POC ABG pO2 ABG Hemoglobin ABG Oxyhemoglobin ABG Sodium ABG Potassium ABG Glucose VBG pH Carboxyhemoglobin Sodium Potassium Chloride Carbon Dioxide BUN Creatinine Glucose POC Glucose 248 H 237 H 234 H Lactic Acid Calcium Phosphorus Magnesium AST ALT Total Creatine Kinase CK-MB (CK-2) Total Protein Albumin Free T4 Arterial Blood Glucose Arterial Blood Ionized Calcium Urine WBC (Auto) 06/21/20 06/21/20 06/21/20 15:29 15:29 15:29 WBC 11.8 H RBC 3.51 L Hgb 9.3 L Hct 29.8 L MCV MCH 27 L MCHC 31 L Lymph % (Auto) [place] % (Auto) [place] # (Auto) Seg Neutrophils % Seg Neuts % (Manual) 81.0 H Lymphocytes % (Manual) 6.0 L Monocytes % (Manual) 10.0 H Seg Neutrophils # Seg Neutrophils # Man 9.6 H Lymphocytes # (Manual) 0.7 L Monocytes # (Manual) 1.2 H Basophils # (Manual) PT INR APTT ABG pH POC ABG pO2 ABG Hemoglobin ABG Oxyhemoglobin ABG Sodium ABG Potassium ABG Glucose VBG pH Carboxyhemoglobin Sodium 152 H Potassium 6.0 H Chloride 115.0 H Carbon Dioxide 18 L BUN 161 H Creatinine 9.7 H Glucose 310 H POC Glucose Lactic Acid Calcium 7.9 L Phosphorus Magnesium AST ALT Total Creatine Kinase 72293 H CK-MB (CK-2) Total Protein Albumin Free T4 Arterial Blood Glucose Arterial Blood Ionized Calcium Urine WBC (Auto) 06/21/20 06/22/20 06/22/20 18:07 02:33 05:51 WBC 11.3 H RBC 3.18 L Hgb 8.6 L Hct 26.7 L MCV MCH 27 L MCHC Lymph % (Auto) 13.2 L [place] % (Auto) 10.8 H [place] # (Auto) 1.2 H Seg Neutrophils % 75.6 H Seg Neuts % (Manual) Lymphocytes % (Manual) Monocytes % (Manual) Seg Neutrophils # 8.5 H Seg Neutrophils # Man Lymphocytes # (Manual) Monocytes # (Manual) Basophils # (Manual) PT INR APTT ABG pH POC ABG pO2 ABG Hemoglobin ABG Oxyhemoglobin ABG Sodium ABG Potassium ABG Glucose VBG pH Carboxyhemoglobin Sodium Potassium Chloride Carbon Dioxide BUN Creatinine Glucose POC Glucose 320 H 302 H Lactic Acid Calcium Phosphorus Magnesium AST ALT Total Creatine Kinase CK-MB (CK-2) Total Protein Albumin Free T4 Arterial Blood Glucose Arterial Blood Ionized Calcium Urine WBC (Auto) 06/22/20 06/22/20 06/22/20 05:51 10:57 11:47 WBC RBC Hgb Hct MCV MCH MCHC Lymph % (Auto) [place] % (Auto) [place] # (Auto) Seg Neutrophils % Seg Neuts % (Manual) Lymphocytes % (Manual) Monocytes % (Manual) Seg Neutrophils # Seg Neutrophils # Man Lymphocytes # (Manual) Monocytes # (Manual) Basophils # (Manual) PT INR APTT ABG pH POC ABG pO2 ABG Hemoglobin ABG Oxyhemoglobin ABG Sodium ABG Potassium ABG Glucose VBG pH Carboxyhemoglobin Sodium Potassium Chloride Carbon Dioxide BUN 102 H Creatinine 7.1 H Glucose 357 H POC Glucose 438 H Lactic Acid Calcium 8.0 L Phosphorus Magnesium AST ALT Total Creatine Kinase 8530 H CK-MB (CK-2) Total Protein Albumin Free T4 Arterial Blood Glucose Arterial Blood Ionized Calcium Urine WBC (Auto) 06/23/20 06/23/20 06/23/20 02:12 04:38 05:13 WBC RBC 2.93 L Hgb 8.0 L Hct 24.8 L MCV MCH 27 L MCHC Lymph % (Auto) 13.0 L [place] % (Auto) 14.1 H [place] # (Auto) 1.5 H Seg Neutrophils % 72.4 H Seg Neuts % (Manual) Lymphocytes % (Manual) Monocytes % (Manual) Seg Neutrophils # Seg Neutrophils # Man Lymphocytes # (Manual) Monocytes # (Manual) Basophils # (Manual) PT INR APTT ABG pH POC ABG pO2 ABG Hemoglobin ABG Oxyhemoglobin ABG Sodium ABG Potassium ABG Glucose VBG pH Carboxyhemoglobin Sodium Potassium Chloride Carbon Dioxide BUN Creatinine Glucose POC Glucose 417 H 390 H Lactic Acid Calcium Phosphorus Magnesium AST ALT Total Creatine Kinase CK-MB (CK-2) Total Protein Albumin Free T4 Arterial Blood Glucose Arterial Blood Ionized Calcium Urine WBC (Auto) 06/23/20 06/23/20 06/23/20 05:13 05:13 10:06 WBC RBC Hgb Hct MCV MCH MCHC Lymph % (Auto) [place] % (Auto) [place] # (Auto) Seg Neutrophils % Seg Neuts % (Manual) Lymphocytes % (Manual) Monocytes % (Manual) Seg Neutrophils # Seg Neutrophils # Man Lymphocytes # (Manual) Monocytes # (Manual) Basophils # (Manual) PT INR APTT ABG pH POC ABG pO2 ABG Hemoglobin ABG Oxyhemoglobin ABG Sodium ABG Potassium ABG Glucose VBG pH Carboxyhemoglobin Sodium Potassium Chloride Carbon Dioxide BUN 90 H Creatinine 6.2 H Glucose 424 H POC Glucose 248 H Lactic Acid Calcium 7.8 L Phosphorus Magnesium AST ALT Total Creatine Kinase 8540 H CK-MB (CK-2) Total Protein Albumin Free T4 Arterial Blood Glucose Arterial Blood Ionized Calcium Urine WBC (Auto) 06/23/20 06/23/20 06/23/20 11:44 15:51 20:30 WBC RBC Hgb Hct MCV MCH MCHC Lymph % (Auto) [place] % (Auto) [place] # (Auto) Seg Neutrophils % Seg Neuts % (Manual) Lymphocytes % (Manual) Monocytes % (Manual) Seg Neutrophils # Seg Neutrophils # Man Lymphocytes # (Manual) Monocytes # (Manual) Basophils # (Manual) PT INR APTT ABG pH POC ABG pO2 ABG Hemoglobin ABG Oxyhemoglobin ABG Sodium ABG Potassium ABG Glucose VBG pH Carboxyhemoglobin Sodium Potassium Chloride Carbon Dioxide BUN Creatinine Glucose POC Glucose 243 H 283 H 275 H Lactic Acid Calcium Phosphorus Magnesium AST ALT Total Creatine Kinase CK-MB (CK-2) Total Protein Albumin Free T4 Arterial Blood Glucose Arterial Blood Ionized Calcium Urine WBC (Auto) 06/24/20 06/24/20 06/24/20 04:56 06:35 06:35 WBC 12.1 H RBC 2.78 L Hgb 7.5 L Hct 23.2 L MCV MCH 27 L MCHC Lymph % (Auto) [place] % (Auto) [place] # (Auto) Seg Neutrophils % Seg Neuts % (Manual) 81.0 H Lymphocytes % (Manual) Monocytes % (Manual) Seg Neutrophils # Seg Neutrophils # Man 9.8 H Lymphocytes # (Manual) Monocytes # (Manual) Basophils # (Manual) PT INR APTT ABG pH POC ABG pO2 ABG Hemoglobin ABG Oxyhemoglobin ABG Sodium ABG Potassium ABG Glucose VBG pH Carboxyhemoglobin Sodium Potassium Chloride Carbon Dioxide BUN 102 H Creatinine 7.1 H Glucose 324 H POC Glucose 269 H Lactic Acid Calcium Phosphorus Magnesium AST ALT Total Creatine Kinase 6347 H CK-MB (CK-2) Total Protein Albumin Free T4 Arterial Blood Glucose Arterial Blood Ionized Calcium Urine WBC (Auto) 06/24/20 06/24/20 06/24/20 10:22 12:11 16:17 WBC RBC Hgb Hct MCV MCH MCHC Lymph % (Auto) [place] % (Auto) [place] # (Auto) Seg Neutrophils % Seg Neuts % (Manual) Lymphocytes % (Manual) Monocytes % (Manual) Seg Neutrophils # Seg Neutrophils # Man Lymphocytes # (Manual) Monocytes # (Manual) Basophils # (Manual) PT INR APTT ABG pH 7.545 H POC ABG pO2 68.9 L ABG Hemoglobin 6.8 L ABG Oxyhemoglobin 92.4 L ABG Sodium 135.1 L ABG Potassium 3.0 L ABG Glucose 199 H VBG pH Carboxyhemoglobin 1.7 H Sodium Potassium Chloride Carbon Dioxide BUN Creatinine Glucose POC Glucose 331 H 303 H Lactic Acid Calcium Phosphorus Magnesium AST ALT Total Creatine Kinase CK-MB (CK-2) Total Protein Albumin Free T4 Arterial Blood Glucose 199 H Arterial Blood Ionized Calcium 4.3 L Urine WBC (Auto) 06/24/20 06/25/20 06/25/20 16:22 00:46 04:44 WBC 12.0 H RBC 2.56 L Hgb 6.9 L Hct 21.2 L MCV 83 L MCH 27 L MCHC Lymph % (Auto) [place] % (Auto) 16.3 H [place] # (Auto) 2.0 H Seg Neutrophils % Seg Neuts % (Manual) Lymphocytes % (Manual) Monocytes % (Manual) Seg Neutrophils # 8.1 H Seg Neutrophils # Man Lymphocytes # (Manual) Monocytes # (Manual) Basophils # (Manual) PT INR APTT ABG pH POC ABG pO2 ABG Hemoglobin ABG Oxyhemoglobin ABG Sodium ABG Potassium ABG Glucose VBG pH Carboxyhemoglobin Sodium Potassium Chloride Carbon Dioxide BUN Creatinine Glucose POC Glucose 173 H 391 H Lactic Acid Calcium Phosphorus Magnesium AST ALT Total Creatine Kinase CK-MB (CK-2) Total Protein Albumin Free T4 Arterial Blood Glucose Arterial Blood Ionized Calcium Urine WBC (Auto) 06/25/20 06/25/20 06/25/20 04:44 04:44 06:20 WBC RBC Hgb Hct MCV MCH MCHC Lymph % (Auto) [place] % (Auto) [place] # (Auto) Seg Neutrophils % Seg Neuts % (Manual) Lymphocytes % (Manual) Monocytes % (Manual) Seg Neutrophils # Seg Neutrophils # Man Lymphocytes # (Manual) Monocytes # (Manual) Basophils # (Manual) PT INR APTT ABG pH POC ABG pO2 ABG Hemoglobin ABG Oxyhemoglobin ABG Sodium ABG Potassium ABG Glucose VBG pH Carboxyhemoglobin Sodium Potassium 3.4 L Chloride Carbon Dioxide BUN 63 H Creatinine 4.7 H Glucose 300 H POC Glucose 240 H Lactic Acid Calcium 8.2 L Phosphorus Magnesium AST ALT Total Creatine Kinase 3017 H CK-MB (CK-2) Total Protein Albumin Free T4 Arterial Blood Glucose Arterial Blood Ionized Calcium Urine WBC (Auto) 06/25/20 08:20 WBC RBC Hgb Hct MCV MCH MCHC Lymph % (Auto) [place] % (Auto) [place] # (Auto) Seg Neutrophils % Seg Neuts % (Manual) Lymphocytes % (Manual) Monocytes % (Manual) Seg Neutrophils # Seg Neutrophils # Man Lymphocytes # (Manual) Monocytes # (Manual) Basophils # (Manual) PT INR APTT ABG pH POC ABG pO2 ABG Hemoglobin ABG Oxyhemoglobin ABG Sodium ABG Potassium ABG Glucose VBG pH Carboxyhemoglobin Sodium Potassium Chloride Carbon Dioxide BUN Creatinine Glucose POC Glucose 207 H Lactic Acid Calcium Phosphorus Magnesium AST ALT Total Creatine Kinase CK-MB (CK-2) Total Protein Albumin Free T4 Arterial Blood Glucose Arterial Blood Ionized Calcium Urine WBC (Auto) Chest x-ray: other (none) Allied health notes reviewed: nursing
--- NOTE | 2020-06-25 21:02 | Progress Note ---
Assessment and Plan - Patient Problems (1) Sepsis Current Visit: Yes Status: Acute Plan to address problem: Sepsis resolved (2) Toxic metabolic encephalopathy Current Visit: Yes Status: Acute Plan to address problem: Resolved, continue current care, (3) DKA (diabetic ketoacidoses) Current Visit: Yes Status: Acute Qualifiers: Diabetes mellitus complication detail: with coma Plan to address problem: DKA resolved, sliding-scale insulin therapy, Accu-Chek, hypoglycemia protocol (4) Rhabdomyolysis Current Visit: Yes Status: Acute Qualifiers: Encounter type: initial encounter Plan to address problem: IV fluid resuscitation therapy, monitor urine output every shift, CK level improving today. Repeat CK in a.m. (5) End stage renal disease Current Visit: Yes Status: Acute Plan to address problem: Hemodialysis catheter placed as per vascular surgery team, dialysis as per renal team. Avoid nephrotoxic agents. (6) DVT prophylaxis Current Visit: Yes Status: Acute Plan to address problem: SCD to bilateral lower extremities while in bed, prophylactic anticoagulation Subjective Date of service: 06/25/20 Principal diagnosis: DKA; Ac encephalopathy; Severe sepsis; Rhabdomyolysis; YUNI. Interval history: History Interval history: 44 YO Male HD #5 with Sepsis, resolved DKA, improved Toxic Metabolic Encephalopathy, ESRD requiring Hemodialysis, Rhabdomyolysis, Hypothermia. Pa tient status improved today. Patient is alert and oriented x3 and resting comfortably in bed. Patient denies pain. Patient states that he is feeling better today. Patient encouraged to increase oral free water intake as tolerated. No reported nursing events. Patient denies pain. Symptomatically better Undergoing dialysis Objective - Constitutional Vitals: Vital Signs - 12hr 06/25/20 06/25/20 06/25/20 10:00 11:00 11:15 Temperature 99.7 F H Pulse Rate 103 H 111 H 110 H Respiratory 16 Rate Blood Pressure 122/63 128/74 Blood Pressure [Left] O2 Sat by Pulse Oximetry 06/25/20 06/25/20 06/25/20 11:30 11:45 12:00 Temperature Pulse Rate 111 H 116 H 110 H Respiratory Rate Blood Pressure 128/74 112/70 116/64 Blood Pressure [Left] O2 Sat by Pulse Oximetry 06/25/20 06/25/20 06/25/20 12:15 12:30 12:45 Temperature Pulse Rate 108 H 108 H 104 H Respiratory Rate Blood Pressure 117/64 114/68 121/67 Blood Pressure [Left] O2 Sat by Pulse Oximetry 06/25/20 06/25/20 06/25/20 13:00 13:15 13:30 Temperature Pulse Rate 106 H 105 H 106 H Respiratory Rate Blood Pressure 124/72 123/68 125/74 Blood Pressure [Left] O2 Sat by Pulse Oximetry 06/25/20 06/25/20 06/25/20 13:45 14:02 15:04 Temperature 98.1 F 100.2 F H Pulse Rate 104 H 106 H 110 H Respiratory 16 18 Rate Blood Pressure 130/77 126/69 Blood Pressure 114/75 [Left] O2 Sat by Pulse 93 Oximetry 06/25/20 06/25/20 16:00 19:19 Temperature 98.6 F Pulse Rate 111 H 111 H Respiratory 14 Rate Blood Pressure 114/75 110/62 Blood Pressure [Left] O2 Sat by Pulse 94 93 Oximetry General appearance: Present: no acute distress, well-nourished - EENT Eyes: PERRL, EOM intact ENT: hearing intact, clear oral mucosa Ears: bilateral: normal - Neck Neck: supple, normal ROM - Respiratory Respiratory effort: normal Respiratory: bilateral: CTA - Breasts Breasts: normal - Cardiovascular Heart rate: 78 Rhythm: regular Heart Sounds: Present: S1 & S2. Absent: gallop, rub Extremities: pulses intact, No edema, normal color, Full ROM - Gastrointestinal General gastrointestinal: Present: soft, non-tender, non-distended, normal bowel sounds - Genitourinary Male genitourinary: normal - Integumentary Integumentary: clear, warm, dry - Musculoskeletal Musculoskeletal: 1, strength equal bilaterally - Neurologic Neurologic: moves all extremities - Psychiatric Psychiatric: memory intact, appropriate mood/affect, intact judgment & insight - Labs CBC & Chem 7: 06/27/20 07:10 06/27/20 07:10 Labs: Abnormal lab results 06/25/20 06/25/20 06/25/20 Range/Units 00:46 04:44 04:44 WBC 12.0 H (4.5-11.0) K/mm3 RBC 2.56 L (3.65-5.03) M/mm3 Hgb 6.9 L (11.8-15.2) gm/dl Hct 21.2 L (35.5-45.6) % MCV 83 L (84-94) fl MCH 27 L (28-32) pg Benzie % (Auto) 16.3 H (0.0-7.3) % Benzie # (Auto) 2.0 H (0.0-0.8) K/mm3 Seg Neutrophils # 8.1 H (1.8-7.7) K/mm3 Potassium 3.4 L (3.6-5.0) mmol/L BUN 63 H (9-20) mg/dL Creatinine 4.7 H (0.8-1.3) mg/dL Glucose 300 H (75-100) mg/dL POC Glucose 391 H (70-105) mg/dL Calcium 8.2 L (8.4-10.2) mg/dL Total Creatine Kinase (55-170) units/L 06/25/20 06/25/20 06/25/20 Range/Units 04:44 06:20 08:20 WBC (4.5-11.0) K/mm3 RBC (3.65-5.03) M/mm3 Hgb (11.8-15.2) gm/dl Hct (35.5-45.6) % MCV (84-94) fl MCH (28-32) pg Benzie % (Auto) (0.0-7.3) % Benzie # (Auto) (0.0-0.8) K/mm3 Seg Neutrophils # (1.8-7.7) K/mm3 Potassium (3.6-5.0) mmol/L BUN (9-20) mg/dL Creatinine (0.8-1.3) mg/dL Glucose (75-100) mg/dL POC Glucose 240 H 207 H (70-105) mg/dL Calcium (8.4-10.2) mg/dL Total Creatine Kinase 3017 H (55-170) units/L 06/25/20 Range/Units 16:57 WBC (4.5-11.0) K/mm3 RBC (3.65-5.03) M/mm3 Hgb (11.8-15.2) gm/dl Hct (35.5-45.6) % MCV (84-94) fl MCH (28-32) pg Benzie % (Auto) (0.0-7.3) % Benzie # (Auto) (0.0-0.8) K/mm3 Seg Neutrophils # (1.8-7.7) K/mm3 Potassium (3.6-5.0) mmol/L BUN (9-20) mg/dL Creatinine (0.8-1.3) mg/dL Glucose (75-100) mg/dL POC Glucose 284 H (70-105) mg/dL Calcium (8.4-10.2) mg/dL Total Creatine Kinase (55-170) units/L HEART Score - HEART Score Troponin: Troponin T < 0.010 ng/mL (0.00-0.029) 06/17/20 11:24
[2020-06-26] MEDS: INSULIN LISPRO 100 UNIT/ML VIAL 3 mL SUB-Q SCH ×4 (06:00→22:07)
--- NOTE | 2020-06-26 07:34 | Progress Note ---
Assessment and Plan Assessment * Acute kidney injury vs advanced CKD, unknown previous baseline * Uremia * Severe hypernatremia * Hyperkalemia * Rhabdomyolysis, severe * Acidosis * Acute encephalopathy * Sepsis * DKA Recommendations * Plan for HD q MWF and prn * stopped ivfs * S/p Garcia, strict I's/O * check 24hr crcl * Trend CPK daily, improving * F/u renal ultrasoud noted * DKA protocol per primary * Renally dose medications * Avoid nephrotoxins Subjective Date of service: 06/26/20 Principal diagnosis: DKA; Ac encephalopathy; Severe sepsis; Rhabdomyolysis; YUNI. Interval history: resting in bed today Objective - Exam Narrative Exam: Constitutional: No acute distress Head: Normocephalic/atraumatic Neck: Supple Lungs: Clear to auscultation bilaterally Cardiovascular: RRR, no M/R/G Abdomen: Soft, nontender, NABS Back, nontender Extremities: No edema, pulses within normal limits Skin: Intact, no rash Neuro: Tremulous, oriented only to self and time - Vital Signs Vital signs: Vital Signs - 12hr 06/25/20 06/25/20 06/26/20 22:00 23:17 04:07 Temperature 98.9 F 98.8 F Pulse Rate 109 H 111 H 104 H Respiratory 18 18 Rate Blood Pressure 112/62 110/64 O2 Sat by Pulse 97 96 Oximetry - Lab 06/25/20 04:44 06/25/20 04:44 Most recent lab results ABG pH 7.545 (7.320-7.450) H 06/24/20 16:17 Calcium 8.2 mg/dL (8.4-10.2) L 06/25/20 04:44 Phosphorus 6.70 mg/dL (2.5-4.5) H 06/20/20 19:43 Magnesium 4.50 mg/dL (1.7-2.3) H 06/17/20 15:33 Medications & Allergies - Medications Allergies/Adverse Reactions: Allergies No Known Allergies Allergy (Unverified 06/21/20 20:38) Home Medications: Home Medications Medication Instructions Recorded Confirmed Last Taken Type Atenolol 50 mg PO DAILY 06/23/20 06/23/20 Unknown History Insulin Degludec [Tresiba 52 unit SQ QHS 06/23/20 06/23/20 Unknown History Flextouch U-200] Insulin Lispro [Humalog Kwikpen 15 units SQ AC 06/23/20 06/23/20 Unknown History 200 UNITS/ML] Lisinopril [Zestril] 10 mg PO DAILY 06/23/20 06/23/20 Unknown History Semaglutide [Ozempic] 0.25 mg SQ 1XW 06/23/20 06/23/20 Unknown History Simvastatin 40 mg PO DAILY 06/23/20 06/23/20 Unknown History Active Medications: Generic Name Dose Route Start Last Admin Trade Name Freq PRN Reason Stop Dose Admin Acetaminophen 650 mg 06/17/20 13:40 06/25/20 15:09 Acetaminophen 325 Mg Tab PO 650 mg Q6H PRN Administration Pain, Mild (1-3) Albuterol 2.5 mg 06/17/20 13:40 Albuterol 2.5 Mg/3 Ml Nebu IH Q3HRT PRN Shortness Of Breath Dextrose 50 ml 06/19/20 15:28 Dextrose 50% In Water (25gm) 50 Ml Syringe IV Q30MIN PRN Hypoglycemia Protocol Epoetin Germán 20,000 unit 06/25/20 08:16 Epoetin Germán 20,000 Unit/1 Ml Inj IV MARIELLE PRN hemodialysis Famotidine 20 mg 06/19/20 10:00 06/25/20 15:13 Famotidine 20 Mg Tab PO 20 mg QDAY JERMAINE Administration Heparin Sodium (Porcine) 5,000 unit 06/17/20 22:00 06/25/20 22:14 Heparin 5,000 Unit/1 Ml Vial SUB-Q 5,000 unit Q12HR JERMAINE Administration Hydromorphone HCl 0.25 mg 06/17/20 13:40 06/22/20 23:58 Hydromorphone 1 Mg/1 Ml Inj IV 0.25 mg Q4H PRN Administration Pain, Moderate (4-6) Sodium Chloride 100 mls @ 999 mls/hr 06/24/20 12:00 Nacl 0.9% IV MARIELLE PRN Hypotension Insulin Glargine 15 units 06/23/20 23:00 06/25/20 22:13 Insulin Glargine 100 Units/Ml SUB-Q 15 units BID JERMAINE Administration Insulin Human Lispro 0 unit 06/18/20 16:00 06/26/20 06:00 Insulin Lispro 100 Unit/Ml Vial 3 Ml SUB-Q 6 unit Q6H JERMAINE Administration Protocol Sodium Bicarbonate 1,300 mg 06/24/20 12:00 06/25/20 22:31 Sodium Bicarbonate 650 Mg Tab PO 1,300 mg BID JERMAINE Administration Sodium Chloride 10 ml 06/17/20 22:00 06/25/20 15:11 Sodium Chloride 0.9% 10 Ml Flush Syringe IV 10 ml BID JERMAINE Administration Sodium Chloride 10 ml 06/17/20 13:40 Sodium Chloride 0.9% 10 Ml Flush Syringe IV PRN PRN LINE FLUSH
[2020-06-26 08:22] LABS: Hemoglobin 6.8 gm/dl (11.8-15.2); Mean Corpuscular HGB Conc 32 % (32-34); Mean Corpuscular Volume 83 fl (84-94); Platelet Count 257 K/mm3 (140-440); Red Blood Count 2.52 M/mm3 (3.65-5.03)
[2020-06-26 08:28] LABS: Calcium 8.2 mg/dL (8.4-10.2)
[2020-06-26 09:47] LABS: Anisocytosis 1+; Band Neutrophils # (Manual) 0.1 K/mm3; Platelet Estimate Consistent w Auto; Total Cells Counted 100
[2020-06-26] MEDS: HEPARIN 5,000 UNIT/1 ML VIAL SUB-Q SCH ×2 (09:48→22:06)
[2020-06-26] MEDS: FAMOTIDINE 20 MG TAB PO SCH ×2 (10:14→14:03)
[2020-06-26] MEDS: SODIUM BICARBONATE 650 MG TAB PO SCH ×3 (10:14→22:06)
[2020-06-26] MEDS: INSULIN GLARGINE 100 UNITS/ML SUB-Q SCH ×3 (10:14→22:07)
--- NOTE | 2020-06-26 12:16 | Progress Note ---
Assessment and Plan Patient sleeping on room air. no Respiratory distress. Patients O2 saturation 98% on room air. Patient afebrile. No leukocytosis. ABG on room air. ABG pH 7.545 (7.320-7.450) H 06/24/20 16:17 POC ABG pCO2 34.2 mmHg (32.0-48.0) 06/24/20 16:17 POC ABG pO2 68.9 mmHg (83-108) L 06/24/20 16:17 POC ABG HCO3 28.9 06/24/20 16:17 Chest xray ordered but not done. - Patient Problems (1) DKA (diabetic ketoacidoses) Current Visit: Yes Status: Acute Qualifiers: Diabetes mellitus complication detail: with coma Plan to address problem: Patients blood sugur 234, Anion gap 11. management as per primary care. (2) YUNI (acute kidney injury) Current Visit: Yes Status: Acute Plan to address problem: Management as per nephrology. (3) Altered mental status Current Visit: Yes Status: Acute Plan to address problem: Improving management as per primary care. (4) End stage renal disease Current Visit: Yes Status: Acute Plan to address problem: Management as per nephrology. (5) Rhabdomyolysis Current Visit: Yes Status: Acute Qualifiers: Encounter type: initial encounter Plan to address problem: Total CPK 1353. patient is on I/V fluids. (6) Sepsis Current Visit: Yes Status: Acute Plan to address problem: Patient treated with I/V levaquin. Subjective Date of service: 06/26/20 Principal diagnosis: DKA; Ac encephalopathy; Severe sepsis; Rhabdomyolysis; YUNI. Interval history: Patient sleeping on room air. no Respiratory distress. Patients O2 saturation 98% on room air. Patient afebrile. No leukocytosis. ABG on room air. ABG pH 7.545 (7.320-7.450) H 06/24/20 16:17 POC ABG pCO2 34.2 mmHg (32.0-48.0) 06/24/20 16:17 POC ABG pO2 68.9 mmHg (83-108) L 06/24/20 16:17 POC ABG HCO3 28.9 06/24/20 16:17 Chest xray ordered but not done. Objective Vital Signs - 12hr 06/26/20 06/26/20 06/26/20 04:07 08:02 09:45 Temperature 98.8 F 98.3 F 98.3 F Pulse Rate 104 H 102 H 100 H Respiratory 18 18 16 Rate Blood Pressure 110/64 109/66 128/73 O2 Sat by Pulse 96 94 Oximetry 06/26/20 06/26/20 06/26/20 10:00 10:15 10:30 Temperature Pulse Rate 100 H 100 H 105 H Respiratory Rate Blood Pressure 128/73 128/73 125/71 O2 Sat by Pulse Oximetry 06/26/20 06/26/20 06/26/20 10:45 11:00 11:15 Temperature Pulse Rate 107 H 107 H 107 H Respiratory Rate Blood Pressure 134/77 122/74 123/78 O2 Sat by Pulse Oximetry 06/26/20 11:30 Temperature Pulse Rate 107 H Respiratory Rate Blood Pressure 122/74 O2 Sat by Pulse Oximetry Constitutional: no acute distress, asleep, other (middle aged male with normal respiratory effort at rest) Eyes: non-icteric ENT: oropharynx moist Neck: supple, no lymphadenopathy, no JVD Effort: normal Ascultation: Bilateral: clear Percussion: Bilateral: not dull Cardiovascular: regular rate and rhythm Gastrointestinal: normoactive bowel sounds, soft, non-tender, non-distended Integumentary: rash (xeroderma) Extremities: no cyanosis, no edema, pulses normal, no ischemia or petechiae Neurologic: non-focal exam, pupils equal and round, CN II-XII normal, motor strength normal and Psychiatric: mood appropriate, affect normal CBC and BMP: 06/26/20 07:18 06/26/20 07:18 ABG, PT/INR, D-dimer: ABG ABG pH 7.545 (7.320-7.450) H 06/24/20 16:17 POC ABG pCO2 34.2 mmHg (32.0-48.0) 06/24/20 16:17 POC ABG pO2 68.9 mmHg (83-108) L 06/24/20 16:17 POC ABG HCO3 28.9 06/24/20 16:17 PT/INR, D-dimer PT 22.1 Sec. (12.2-14.9) H 06/17/20 11:24 INR 1.92 (0.87-1.13) H 06/17/20 11:24 Abnormal lab findings: Abnormal Labs 06/17/20 06/17/20 06/17/20 11:24 11:24 11:24 WBC 14.7 H RBC 5.38 H Hgb Hct 49.1 H MCV MCH 27 L MCHC 29 L Lymph % (Auto) 9.9 L Park % (Auto) Park # (Auto) Seg Neutrophils % 86.8 H Seg Neuts % (Manual) Lymphocytes % (Manual) Monocytes % (Manual) Seg Neutrophils # 12.8 H Seg Neutrophils # Man Lymphocytes # (Manual) Monocytes # (Manual) Basophils # (Manual) PT 22.1 H INR 1.92 H APTT 38.9 H ABG pH POC ABG pO2 ABG Hemoglobin ABG Oxyhemoglobin ABG Sodium ABG Potassium ABG Glucose VBG pH Carboxyhemoglobin Sodium 149 H Potassium Chloride Carbon Dioxide BUN 84 H Creatinine 3.6 H Glucose 1394 H* POC Glucose Lactic Acid Calcium Phosphorus Magnesium AST 59 H ALT Total Creatine Kinase 5507 H CK-MB (CK-2) 7.9 H Total Protein 9.0 H Albumin 3.7 L Free T4 Arterial Blood Glucose Arterial Blood Ionized Calcium Urine WBC (Auto) 06/17/20 06/17/20 06/17/20 11:24 11:24 11:24 WBC RBC Hgb Hct MCV MCH MCHC Lymph % (Auto) Park % (Auto) Park # (Auto) Seg Neutrophils % Seg Neuts % (Manual) Lymphocytes % (Manual) Monocytes % (Manual) Seg Neutrophils # Seg Neutrophils # Man Lymphocytes # (Manual) Monocytes # (Manual) Basophils # (Manual) PT INR APTT ABG pH POC ABG pO2 ABG Hemoglobin ABG Oxyhemoglobin ABG Sodium ABG Potassium ABG Glucose VBG pH 7.123 L* Carboxyhemoglobin Sodium Potassium Chloride Carbon Dioxide BUN Creatinine Glucose POC Glucose Lactic Acid Calcium Phosphorus Magnesium 6.20 H AST ALT Total Creatine Kinase CK-MB (CK-2) Total Protein Albumin Free T4 1.65 H Arterial Blood Glucose Arterial Blood Ionized Calcium Urine WBC (Auto) 06/17/20 06/17/20 06/17/20 15:27 15:33 15:33 WBC RBC Hgb Hct MCV MCH MCHC Lymph % (Auto) Park % (Auto) Park # (Auto) Seg Neutrophils % Seg Neuts % (Manual) Lymphocytes % (Manual) Monocytes % (Manual) Seg Neutrophils # Seg Neutrophils # Man Lymphocytes # (Manual) Monocytes # (Manual) Basophils # (Manual) PT INR APTT ABG pH POC ABG pO2 ABG Hemoglobin ABG Oxyhemoglobin ABG Sodium ABG Potassium ABG Glucose VBG pH Carboxyhemoglobin Sodium Potassium Chloride Carbon Dioxide BUN Creatinine Glucose 1086 H* POC Glucose > 600 H Lactic Acid Calcium Phosphorus 9.40 H Magnesium 4.50 H AST ALT Total Creatine Kinase CK-MB (CK-2) Total Protein Albumin Free T4 Arterial Blood Glucose Arterial Blood Ionized Calcium Urine WBC (Auto) 06/17/20 06/17/20 06/17/20 16:58 18:39 18:41 WBC RBC Hgb Hct MCV MCH MCHC Lymph % (Auto) Park % (Auto) Park # (Auto) Seg Neutrophils % Seg Neuts % (Manual) Lymphocytes % (Manual) Monocytes % (Manual) Seg Neutrophils # Seg Neutrophils # Man Lymphocytes # (Manual) Monocytes # (Manual) Basophils # (Manual) PT INR APTT ABG pH POC ABG pO2 ABG Hemoglobin ABG Oxyhemoglobin ABG Sodium ABG Potassium ABG Glucose VBG pH Carboxyhemoglobin Sodium 155 H 154 H Potassium 3.0 L D 2.8 L* Chloride 114.0 H 117.3 H Carbon Dioxide 20 L 19 L BUN 83 H 84 H Creatinine 3.2 H 3.3 H Glucose 1046 H* 830 H* POC Glucose > 600 H Lactic Acid Calcium 7.8 L D 7.9 L Phosphorus Magnesium AST ALT Total Creatine Kinase CK-MB (CK-2) Total Protein Albumin Free T4 Arterial Blood Glucose Arterial Blood Ionized Calcium Urine WBC (Auto) 06/17/20 06/17/20 06/17/20 21:15 21:15 Unknown WBC RBC Hgb Hct MCV MCH MCHC Lymph % (Auto) Park % (Auto) Park # (Auto) Seg Neutrophils % Seg Neuts % (Manual) Lymphocytes % (Manual) Monocytes % (Manual) Seg Neutrophils # Seg Neutrophils # Man Lymphocytes # (Manual) Monocytes # (Manual) Basophils # (Manual) PT INR APTT ABG pH POC ABG pO2 ABG Hemoglobin ABG Oxyhemoglobin ABG Sodium ABG Potassium ABG Glucose VBG pH Carboxyhemoglobin Sodium 157 H Potassium 2.9 L* Chloride 118.8 H Carbon Dioxide 19 L BUN 84 H Creatinine 3.3 H Glucose 666 H* POC Glucose Lactic Acid 2.80 H* Calcium 7.8 L Phosphorus Magnesium AST ALT Total Creatine Kinase CK-MB (CK-2) Total Protein Albumin Free T4 Arterial Blood Glucose Arterial Blood Ionized Calcium Urine WBC (Auto) 7.0 H 06/18/20 06/18/20 06/18/20 00:10 00:20 03:20 WBC RBC Hgb Hct MCV MCH MCHC Lymph % (Auto) Park % (Auto) Park # (Auto) Seg Neutrophils % Seg Neuts % (Manual) Lymphocytes % (Manual) Monocytes % (Manual) Seg Neutrophils # Seg Neutrophils # Man Lymphocytes # (Manual) Monocytes # (Manual) Basophils # (Manual) PT INR APTT ABG pH POC ABG pO2 ABG Hemoglobin ABG Oxyhemoglobin ABG Sodium ABG Potassium ABG Glucose VBG pH Carboxyhemoglobin Sodium 160 H Potassium 3.0 L Chloride 118.8 H Carbon Dioxide BUN 89 H Creatinine 3.8 H Glucose 650 H* POC Glucose 291 H Lactic Acid 2.40 H* Calcium 7.8 L Phosphorus Magnesium AST ALT Total Creatine Kinase CK-MB (CK-2) Total Protein Albumin Free T4 Arterial Blood Glucose Arterial Blood Ionized Calcium Urine WBC (Auto) 06/18/20 06/18/20 06/18/20 05:19 06:27 06:27 WBC RBC Hgb Hct MCV MCH MCHC Lymph % (Auto) Park % (Auto) Park # (Auto) Seg Neutrophils % Seg Neuts % (Manual) Lymphocytes % (Manual) Monocytes % (Manual) Seg Neutrophils # Seg Neutrophils # Man Lymphocytes # (Manual) Monocytes # (Manual) Basophils # (Manual) PT INR APTT ABG pH POC ABG pO2 ABG Hemoglobin ABG Oxyhemoglobin ABG Sodium ABG Potassium ABG Glucose VBG pH Carboxyhemoglobin Sodium 167 H* Potassium 3.4 L Chloride 126.4 H Carbon Dioxide 21 L BUN 99 H Creatinine 4.5 H Glucose 291 H POC Glucose 276 H Lactic Acid 2.80 H* Calcium 8.1 L Phosphorus Magnesium AST ALT Total Creatine Kinase CK-MB (CK-2) Total Protein Albumin Free T4 Arterial Blood Glucose Arterial Blood Ionized Calcium Urine WBC (Auto) 06/18/20 06/18/20 06/18/20 06:45 08:40 08:49 WBC RBC Hgb Hct MCV MCH MCHC Lymph % (Auto) Park % (Auto) Park # (Auto) Seg Neutrophils % Seg Neuts % (Manual) Lymphocytes % (Manual) Monocytes % (Manual) Seg Neutrophils # Seg Neutrophils # Man Lymphocytes # (Manual) Monocytes # (Manual) Basophils # (Manual) PT INR APTT ABG pH POC ABG pO2 ABG Hemoglobin ABG Oxyhemoglobin ABG Sodium ABG Potassium ABG Glucose VBG pH Carboxyhemoglobin Sodium Potassium Chloride Carbon Dioxide BUN Creatinine Glucose POC Glucose 215 H 182 H Lactic Acid 2.20 H* Calcium Phosphorus Magnesium AST ALT Total Creatine Kinase CK-MB (CK-2) Total Protein Albumin Free T4 Arterial Blood Glucose Arterial Blood Ionized Calcium Urine WBC (Auto) 06/18/20 06/18/20 06/18/20 10:01 10:28 11:40 WBC RBC Hgb Hct MCV MCH MCHC Lymph % (Auto) Park % (Auto) Park # (Auto) Seg Neutrophils % Seg Neuts % (Manual) Lymphocytes % (Manual) Monocytes % (Manual) Seg Neutrophils # Seg Neutrophils # Man Lymphocytes # (Manual) Monocytes # (Manual) Basophils # (Manual) PT INR APTT ABG pH POC ABG pO2 ABG Hemoglobin ABG Oxyhemoglobin ABG Sodium ABG Potassium ABG Glucose VBG pH Carboxyhemoglobin Sodium 161 H* Potassium Chloride 125.4 H Carbon Dioxide 21 L BUN 98 H Creatinine 5.0 H Glucose 247 H POC Glucose 217 H Lactic Acid 3.20 H* Calcium 7.8 L Phosphorus Magnesium AST ALT Total Creatine Kinase CK-MB (CK-2) Total Protein Albumin Free T4 Arterial Blood Glucose Arterial Blood Ionized Calcium Urine WBC (Auto) 06/18/20 06/18/20 06/18/20 11:40 11:40 12:33 WBC RBC Hgb Hct MCV MCH MCHC Lymph % (Auto) Park % (Auto) Park # (Auto) Seg Neutrophils % Seg Neuts % (Manual) Lymphocytes % (Manual) Monocytes % (Manual) Seg Neutrophils # Seg Neutrophils # Man Lymphocytes # (Manual) Monocytes # (Manual) Basophils # (Manual) PT INR APTT ABG pH POC ABG pO2 ABG Hemoglobin ABG Oxyhemoglobin ABG Sodium ABG Potassium ABG Glucose VBG pH Carboxyhemoglobin Sodium Potassium Chloride Carbon Dioxide BUN Creatinine Glucose POC Glucose 199 H Lactic Acid 2.40 H* Calcium Phosphorus Magnesium AST ALT Total Creatine Kinase 89942 H CK-MB (CK-2) Total Protein Albumin Free T4 Arterial Blood Glucose Arterial Blood Ionized Calcium Urine WBC (Auto) 06/18/20 06/18/20 06/18/20 13:57 16:27 21:58 WBC RBC Hgb Hct MCV MCH MCHC Lymph % (Auto) Park % (Auto) Park # (Auto) Seg Neutrophils % Seg Neuts % (Manual) Lymphocytes % (Manual) Monocytes % (Manual) Seg Neutrophils # Seg Neutrophils # Man Lymphocytes # (Manual) Monocytes # (Manual) Basophils # (Manual) PT INR APTT ABG pH POC ABG pO2 ABG Hemoglobin ABG Oxyhemoglobin ABG Sodium ABG Potassium ABG Glucose VBG pH Carboxyhemoglobin Sodium Potassium Chloride Carbon Dioxide BUN Creatinine Glucose POC Glucose 198 H 185 H 281 H Lactic Acid Calcium Phosphorus Magnesium AST ALT Total Creatine Kinase CK-MB (CK-2) Total Protein Albumin Free T4 Arterial Blood Glucose Arterial Blood Ionized Calcium Urine WBC (Auto) 06/19/20 06/19/20 06/19/20 00:55 00:55 04:25 WBC RBC Hgb Hct MCV MCH MCHC Lymph % (Auto) Park % (Auto) Park # (Auto) Seg Neutrophils % Seg Neuts % (Manual) Lymphocytes % (Manual) Monocytes % (Manual) Seg Neutrophils # Seg Neutrophils # Man Lymphocytes # (Manual) Monocytes # (Manual) Basophils # (Manual) PT INR APTT ABG pH POC ABG pO2 ABG Hemoglobin ABG Oxyhemoglobin ABG Sodium ABG Potassium ABG Glucose VBG pH Carboxyhemoglobin Sodium 164 H* Potassium Chloride 125.8 H Carbon Dioxide 21 L BUN 100 H Creatinine 6.4 H Glucose 370 H POC Glucose 366 H Lactic Acid 2.30 H* Calcium 7.4 L Phosphorus Magnesium AST ALT Total Creatine Kinase CK-MB (CK-2) Total Protein Albumin Free T4 Arterial Blood Glucose Arterial Blood Ionized Calcium Urine WBC (Auto) 06/19/20 06/19/20 06/19/20 11:49 14:24 15:44 WBC RBC Hgb Hct MCV MCH MCHC Lymph % (Auto) Park % (Auto) Park # (Auto) Seg Neutrophils % Seg Neuts % (Manual) Lymphocytes % (Manual) Monocytes % (Manual) Seg Neutrophils # Seg Neutrophils # Man Lymphocytes # (Manual) Monocytes # (Manual) Basophils # (Manual) PT INR APTT ABG pH POC ABG pO2 ABG Hemoglobin ABG Oxyhemoglobin ABG Sodium ABG Potassium ABG Glucose VBG pH Carboxyhemoglobin Sodium Potassium Chloride Carbon Dioxide BUN Creatinine Glucose POC Glucose 411 H Lactic Acid 2.90 H* Calcium Phosphorus Magnesium AST ALT Total Creatine Kinase 09977 H CK-MB (CK-2) Total Protein Albumin Free T4 Arterial Blood Glucose Arterial Blood Ionized Calcium Urine WBC (Auto) 06/19/20 06/19/20 06/19/20 18:41 21:44 22:16 WBC RBC Hgb Hct MCV MCH MCHC Lymph % (Auto) Park % (Auto) Park # (Auto) Seg Neutrophils % Seg Neuts % (Manual) Lymphocytes % (Manual) Monocytes % (Manual) Seg Neutrophils # Seg Neutrophils # Man Lymphocytes # (Manual) Monocytes # (Manual) Basophils # (Manual) PT INR APTT ABG pH POC ABG pO2 ABG Hemoglobin ABG Oxyhemoglobin ABG Sodium ABG Potassium ABG Glucose VBG pH Carboxyhemoglobin Sodium Potassium Chloride Carbon Dioxide BUN Creatinine Glucose POC Glucose 404 H 333 H Lactic Acid 2.50 H* Calcium Phosphorus Magnesium AST ALT Total Creatine Kinase CK-MB (CK-2) Total Protein Albumin Free T4 Arterial Blood Glucose Arterial Blood Ionized Calcium Urine WBC (Auto) 06/20/20 06/20/20 06/20/20 00:12 04:37 05:08 WBC RBC Hgb Hct MCV MCH MCHC Lymph % (Auto) Park % (Auto) Park # (Auto) Seg Neutrophils % Seg Neuts % (Manual) Lymphocytes % (Manual) Monocytes % (Manual) Seg Neutrophils # Seg Neutrophils # Man Lymphocytes # (Manual) Monocytes # (Manual) Basophils # (Manual) PT INR APTT ABG pH POC ABG pO2 ABG Hemoglobin ABG Oxyhemoglobin ABG Sodium ABG Potassium ABG Glucose VBG pH Carboxyhemoglobin Sodium Potassium Chloride Carbon Dioxide BUN Creatinine Glucose POC Glucose 318 H Lactic Acid 2.10 H* Calcium Phosphorus Magnesium AST ALT Total Creatine Kinase 40484 H CK-MB (CK-2) Total Protein Albumin Free T4 Arterial Blood Glucose Arterial Blood Ionized Calcium Urine WBC (Auto) 06/20/20 06/20/20 06/20/20 10:19 14:47 14:47 WBC 15.1 H RBC Hgb 10.2 L Hct 32.0 L MCV MCH 27 L MCHC Lymph % (Auto) Park % (Auto) Park # (Auto) Seg Neutrophils % Seg Neuts % (Manual) 79.0 H Lymphocytes % (Manual) 12.0 L Monocytes % (Manual) Seg Neutrophils # Seg Neutrophils # Man 11.9 H Lymphocytes # (Manual) Monocytes # (Manual) 1.1 H Basophils # (Manual) 0.2 H PT INR APTT ABG pH POC ABG pO2 ABG Hemoglobin ABG Oxyhemoglobin ABG Sodium ABG Potassium ABG Glucose VBG pH Carboxyhemoglobin Sodium 156 H Potassium 5.9 H D Chloride 118.3 H Carbon Dioxide 20 L BUN 159 H Creatinine 9.4 H Glucose 283 H POC Glucose 220 H Lactic Acid Calcium 7.7 L Phosphorus Magnesium AST 149 H ALT 89 H Total Creatine Kinase CK-MB (CK-2) Total Protein 5.9 L D Albumin 2.3 L Free T4 Arterial Blood Glucose Arterial Blood Ionized Calcium Urine WBC (Auto) 06/20/20 06/20/20 06/20/20 17:02 19:43 22:01 WBC RBC Hgb Hct MCV MCH MCHC Lymph % (Auto) Park % (Auto) Park # (Auto) Seg Neutrophils % Seg Neuts % (Manual) Lymphocytes % (Manual) Monocytes % (Manual) Seg Neutrophils # Seg Neutrophils # Man Lymphocytes # (Manual) Monocytes # (Manual) Basophils # (Manual) PT INR APTT ABG pH POC ABG pO2 ABG Hemoglobin ABG Oxyhemoglobin ABG Sodium ABG Potassium ABG Glucose VBG pH Carboxyhemoglobin Sodium Potassium Chloride Carbon Dioxide BUN Creatinine Glucose POC Glucose 248 H 268 H Lactic Acid Calcium Phosphorus 6.70 H Magnesium AST ALT Total Creatine Kinase CK-MB (CK-2) Total Protein Albumin Free T4 Arterial Blood Glucose Arterial Blood Ionized Calcium Urine WBC (Auto) 06/21/20 06/21/20 06/21/20 02:22 04:28 09:45 WBC RBC Hgb Hct MCV MCH MCHC Lymph % (Auto) Park % (Auto) Park # (Auto) Seg Neutrophils % Seg Neuts % (Manual) Lymphocytes % (Manual) Monocytes % (Manual) Seg Neutrophils # Seg Neutrophils # Man Lymphocytes # (Manual) Monocytes # (Manual) Basophils # (Manual) PT INR APTT ABG pH POC ABG pO2 ABG Hemoglobin ABG Oxyhemoglobin ABG Sodium ABG Potassium ABG Glucose VBG pH Carboxyhemoglobin Sodium Potassium Chloride Carbon Dioxide BUN Creatinine Glucose POC Glucose 248 H 237 H 234 H Lactic Acid Calcium Phosphorus Magnesium AST ALT Total Creatine Kinase CK-MB (CK-2) Total Protein Albumin Free T4 Arterial Blood Glucose Arterial Blood Ionized Calcium Urine WBC (Auto) 06/21/20 06/21/20 06/21/20 15:29 15:29 15:29 WBC 11.8 H RBC 3.51 L Hgb 9.3 L Hct 29.8 L MCV MCH 27 L MCHC 31 L Lymph % (Auto) Park % (Auto) Park # (Auto) Seg Neutrophils % Seg Neuts % (Manual) 81.0 H Lymphocytes % (Manual) 6.0 L Monocytes % (Manual) 10.0 H Seg Neutrophils # Seg Neutrophils # Man 9.6 H Lymphocytes # (Manual) 0.7 L Monocytes # (Manual) 1.2 H Basophils # (Manual) PT INR APTT ABG pH POC ABG pO2 ABG Hemoglobin ABG Oxyhemoglobin ABG Sodium ABG Potassium ABG Glucose VBG pH Carboxyhemoglobin Sodium 152 H Potassium 6.0 H Chloride 115.0 H Carbon Dioxide 18 L BUN 161 H Creatinine 9.7 H Glucose 310 H POC Glucose Lactic Acid Calcium 7.9 L Phosphorus Magnesium AST ALT Total Creatine Kinase 16614 H CK-MB (CK-2) Total Protein Albumin Free T4 Arterial Blood Glucose Arterial Blood Ionized Calcium Urine WBC (Auto) 06/21/20 06/22/20 06/22/20 18:07 02:33 05:51 WBC 11.3 H RBC 3.18 L Hgb 8.6 L Hct 26.7 L MCV MCH 27 L MCHC Lymph % (Auto) 13.2 L Park % (Auto) 10.8 H Park # (Auto) 1.2 H Seg Neutrophils % 75.6 H Seg Neuts % (Manual) Lymphocytes % (Manual) Monocytes % (Manual) Seg Neutrophils # 8.5 H Seg Neutrophils # Man Lymphocytes # (Manual) Monocytes # (Manual) Basophils # (Manual) PT INR APTT ABG pH POC ABG pO2 ABG Hemoglobin ABG Oxyhemoglobin ABG Sodium ABG Potassium ABG Glucose VBG pH Carboxyhemoglobin Sodium Potassium Chloride Carbon Dioxide BUN Creatinine Glucose POC Glucose 320 H 302 H Lactic Acid Calcium Phosphorus Magnesium AST ALT Total Creatine Kinase CK-MB (CK-2) Total Protein Albumin Free T4 Arterial Blood Glucose Arterial Blood Ionized Calcium Urine WBC (Auto) 06/22/20 06/22/20 06/22/20 05:51 10:57 11:47 WBC RBC Hgb Hct MCV MCH MCHC Lymph % (Auto) Park % (Auto) Park # (Auto) Seg Neutrophils % Seg Neuts % (Manual) Lymphocytes % (Manual) Monocytes % (Manual) Seg Neutrophils # Seg Neutrophils # Man Lymphocytes # (Manual) Monocytes # (Manual) Basophils # (Manual) PT INR APTT ABG pH POC ABG pO2 ABG Hemoglobin ABG Oxyhemoglobin ABG Sodium ABG Potassium ABG Glucose VBG pH Carboxyhemoglobin Sodium Potassium Chloride Carbon Dioxide BUN 102 H Creatinine 7.1 H Glucose 357 H POC Glucose 438 H Lactic Acid Calcium 8.0 L Phosphorus Magnesium AST ALT Total Creatine Kinase 8530 H CK-MB (CK-2) Total Protein Albumin Free T4 Arterial Blood Glucose Arterial Blood Ionized Calcium Urine WBC (Auto) 06/23/20 06/23/20 06/23/20 02:12 04:38 05:13 WBC RBC 2.93 L Hgb 8.0 L Hct 24.8 L MCV MCH 27 L MCHC Lymph % (Auto) 13.0 L Park % (Auto) 14.1 H Park # (Auto) 1.5 H Seg Neutrophils % 72.4 H Seg Neuts % (Manual) Lymphocytes % (Manual) Monocytes % (Manual) Seg Neutrophils # Seg Neutrophils # Man Lymphocytes # (Manual) Monocytes # (Manual) Basophils # (Manual) PT INR APTT ABG pH POC ABG pO2 ABG Hemoglobin ABG Oxyhemoglobin ABG Sodium ABG Potassium ABG Glucose VBG pH Carboxyhemoglobin Sodium Potassium Chloride Carbon Dioxide BUN Creatinine Glucose POC Glucose 417 H 390 H Lactic Acid Calcium Phosphorus Magnesium AST ALT Total Creatine Kinase CK-MB (CK-2) Total Protein Albumin Free T4 Arterial Blood Glucose Arterial Blood Ionized Calcium Urine WBC (Auto) 06/23/20 06/23/20 06/23/20 05:13 05:13 10:06 WBC RBC Hgb Hct MCV MCH MCHC Lymph % (Auto) Park % (Auto) Park # (Auto) Seg Neutrophils % Seg Neuts % (Manual) Lymphocytes % (Manual) Monocytes % (Manual) Seg Neutrophils # Seg Neutrophils # Man Lymphocytes # (Manual) Monocytes # (Manual) Basophils # (Manual) PT INR APTT ABG pH POC ABG pO2 ABG Hemoglobin ABG Oxyhemoglobin ABG Sodium ABG Potassium ABG Glucose VBG pH Carboxyhemoglobin Sodium Potassium Chloride Carbon Dioxide BUN 90 H Creatinine 6.2 H Glucose 424 H POC Glucose 248 H Lactic Acid Calcium 7.8 L Phosphorus Magnesium AST ALT Total Creatine Kinase 8540 H CK-MB (CK-2) Total Protein Albumin Free T4 Arterial Blood Glucose Arterial Blood Ionized Calcium Urine WBC (Auto) 06/23/20 06/23/20 06/23/20 11:44 15:51 20:30 WBC RBC Hgb Hct MCV MCH MCHC Lymph % (Auto) Park % (Auto) Park # (Auto) Seg Neutrophils % Seg Neuts % (Manual) Lymphocytes % (Manual) Monocytes % (Manual) Seg Neutrophils # Seg Neutrophils # Man Lymphocytes # (Manual) Monocytes # (Manual) Basophils # (Manual) PT INR APTT ABG pH POC ABG pO2 ABG Hemoglobin ABG Oxyhemoglobin ABG Sodium ABG Potassium ABG Glucose VBG pH Carboxyhemoglobin Sodium Potassium Chloride Carbon Dioxide BUN Creatinine Glucose POC Glucose 243 H 283 H 275 H Lactic Acid Calcium Phosphorus Magnesium AST ALT Total Creatine Kinase CK-MB (CK-2) Total Protein Albumin Free T4 Arterial Blood Glucose Arterial Blood Ionized Calcium Urine WBC (Auto) 06/24/20 06/24/20 06/24/20 04:56 06:35 06:35 WBC 12.1 H RBC 2.78 L Hgb 7.5 L Hct 23.2 L MCV MCH 27 L MCHC Lymph % (Auto) Park % (Auto) Park # (Auto) Seg Neutrophils % Seg Neuts % (Manual) 81.0 H Lymphocytes % (Manual) Monocytes % (Manual) Seg Neutrophils # Seg Neutrophils # Man 9.8 H Lymphocytes # (Manual) Monocytes # (Manual) Basophils # (Manual) PT INR APTT ABG pH POC ABG pO2 ABG Hemoglobin ABG Oxyhemoglobin ABG Sodium ABG Potassium ABG Glucose VBG pH Carboxyhemoglobin Sodium Potassium Chloride Carbon Dioxide BUN 102 H Creatinine 7.1 H Glucose 324 H POC Glucose 269 H Lactic Acid Calcium Phosphorus Magnesium AST ALT Total Creatine Kinase 6347 H CK-MB (CK-2) Total Protein Albumin Free T4 Arterial Blood Glucose Arterial Blood Ionized Calcium Urine WBC (Auto) 06/24/20 06/24/20 06/24/20 10:22 12:11 16:17 WBC RBC Hgb Hct MCV MCH MCHC Lymph % (Auto) Park % (Auto) Park # (Auto) Seg Neutrophils % Seg Neuts % (Manual) Lymphocytes % (Manual) Monocytes % (Manual) Seg Neutrophils # Seg Neutrophils # Man Lymphocytes # (Manual) Monocytes # (Manual) Basophils # (Manual) PT INR APTT ABG pH 7.545 H POC ABG pO2 68.9 L ABG Hemoglobin 6.8 L ABG Oxyhemoglobin 92.4 L ABG Sodium 135.1 L ABG Potassium 3.0 L ABG Glucose 199 H VBG pH Carboxyhemoglobin 1.7 H Sodium Potassium Chloride Carbon Dioxide BUN Creatinine Glucose POC Glucose 331 H 303 H Lactic Acid Calcium Phosphorus Magnesium AST ALT Total Creatine Kinase CK-MB (CK-2) Total Protein Albumin Free T4 Arterial Blood Glucose 199 H Arterial Blood Ionized Calcium 4.3 L Urine WBC (Auto) 06/24/20 06/25/20 06/25/20 16:22 00:46 04:44 WBC 12.0 H RBC 2.56 L Hgb 6.9 L Hct 21.2 L MCV 83 L MCH 27 L MCHC Lymph % (Auto) Park % (Auto) 16.3 H Park # (Auto) 2.0 H Seg Neutrophils % Seg Neuts % (Manual) Lymphocytes % (Manual) Monocytes % (Manual) Seg Neutrophils # 8.1 H Seg Neutrophils # Man Lymphocytes # (Manual) Monocytes # (Manual) Basophils # (Manual) PT INR APTT ABG pH POC ABG pO2 ABG Hemoglobin ABG Oxyhemoglobin ABG Sodium ABG Potassium ABG Glucose VBG pH Carboxyhemoglobin Sodium Potassium Chloride Carbon Dioxide BUN Creatinine Glucose POC Glucose 173 H 391 H Lactic Acid Calcium Phosphorus Magnesium AST ALT Total Creatine Kinase CK-MB (CK-2) Total Protein Albumin Free T4 Arterial Blood Glucose Arterial Blood Ionized Calcium Urine WBC (Auto) 06/25/20 06/25/20 06/25/20 04:44 04:44 06:20 WBC RBC Hgb Hct MCV MCH MCHC Lymph % (Auto) Park % (Auto) Park # (Auto) Seg Neutrophils % Seg Neuts % (Manual) Lymphocytes % (Manual) Monocytes % (Manual) Seg Neutrophils # Seg Neutrophils # Man Lymphocytes # (Manual) Monocytes # (Manual) Basophils # (Manual) PT INR APTT ABG pH POC ABG pO2 ABG Hemoglobin ABG Oxyhemoglobin ABG Sodium ABG Potassium ABG Glucose VBG pH Carboxyhemoglobin Sodium Potassium 3.4 L Chloride Carbon Dioxide BUN 63 H Creatinine 4.7 H Glucose 300 H POC Glucose 240 H Lactic Acid Calcium 8.2 L Phosphorus Magnesium AST ALT Total Creatine Kinase 3017 H CK-MB (CK-2) Total Protein Albumin Free T4 Arterial Blood Glucose Arterial Blood Ionized Calcium Urine WBC (Auto) 06/25/20 06/25/20 06/25/20 08:20 16:57 21:20 WBC RBC Hgb Hct MCV MCH MCHC Lymph % (Auto) Park % (Auto) Park # (Auto) Seg Neutrophils % Seg Neuts % (Manual) Lymphocytes % (Manual) Monocytes % (Manual) Seg Neutrophils # Seg Neutrophils # Man Lymphocytes # (Manual) Monocytes # (Manual) Basophils # (Manual) PT INR APTT ABG pH POC ABG pO2 ABG Hemoglobin ABG Oxyhemoglobin ABG Sodium ABG Potassium ABG Glucose VBG pH Carboxyhemoglobin Sodium Potassium Chloride Carbon Dioxide BUN Creatinine Glucose POC Glucose 207 H 284 H 259 H Lactic Acid Calcium Phosphorus Magnesium AST ALT Total Creatine Kinase CK-MB (CK-2) Total Protein Albumin Free T4 Arterial Blood Glucose Arterial Blood Ionized Calcium Urine WBC (Auto) 06/26/20 06/26/20 06/26/20 04:06 07:18 07:18 WBC 14.0 H RBC 2.52 L Hgb 6.8 L Hct 21.0 L MCV 83 L MCH 27 L MCHC Lymph % (Auto) Park % (Auto) Park # (Auto) Seg Neutrophils % Seg Neuts % (Manual) 77.0 H Lymphocytes % (Manual) 12.0 L Monocytes % (Manual) Seg Neutrophils # Seg Neutrophils # Man 10.8 H Lymphocytes # (Manual) Monocytes # (Manual) 1.0 H Basophils # (Manual) PT INR APTT ABG pH POC ABG pO2 ABG Hemoglobin ABG Oxyhemoglobin ABG Sodium ABG Potassium ABG Glucose VBG pH Carboxyhemoglobin Sodium Potassium 3.0 L Chloride Carbon Dioxide BUN 46 H Creatinine 3.7 H Glucose 234 H POC Glucose 204 H Lactic Acid Calcium 8.2 L Phosphorus Magnesium AST ALT Total Creatine Kinase CK-MB (CK-2) Total Protein Albumin Free T4 Arterial Blood Glucose Arterial Blood Ionized Calcium Urine WBC (Auto) 06/26/20 06/26/20 07:18 09:18 WBC RBC Hgb Hct MCV MCH MCHC Lymph % (Auto) Park % (Auto) Park # (Auto) Seg Neutrophils % Seg Neuts % (Manual) Lymphocytes % (Manual) Monocytes % (Manual) Seg Neutrophils # Seg Neutrophils # Man Lymphocytes # (Manual) Monocytes # (Manual) Basophils # (Manual) PT INR APTT ABG pH POC ABG pO2 ABG Hemoglobin ABG Oxyhemoglobin ABG Sodium ABG Potassium ABG Glucose VBG pH Carboxyhemoglobin Sodium Potassium Chloride Carbon Dioxide BUN Creatinine Glucose POC Glucose 235 H Lactic Acid Calcium Phosphorus Magnesium AST ALT Total Creatine Kinase 1353 H CK-MB (CK-2) Total Protein Albumin Free T4 Arterial Blood Glucose Arterial Blood Ionized Calcium Urine WBC (Auto) Allied health notes reviewed: nursing
[2020-06-26 17:54] LABS: Creatinine,Urine 73.8 mg/dL (0.1-20.0)
--- NOTE | 2020-06-26 21:37 | Progress Note ---
Assessment and Plan - Patient Problems (1) Sepsis Current Visit: Yes Status: Acute Plan to address problem: Sepsis resolved (2) Toxic metabolic encephalopathy Current Visit: Yes Status: Acute Plan to address problem: Resolved, continue current care, (3) DKA (diabetic ketoacidoses) Current Visit: Yes Status: Acute Qualifiers: Diabetes mellitus complication detail: with coma Plan to address problem: DKA resolved, sliding-scale insulin therapy, Accu-Chek, hypoglycemia protocol (4) Rhabdomyolysis Current Visit: Yes Status: Acute Qualifiers: Encounter type: initial encounter Plan to address problem: IV fluid resuscitation therapy, monitor urine output every shift, CK level improving today. Repeat CK in a.m. (5) End stage renal disease Current Visit: Yes Status: Acute Plan to address problem: Hemodialysis catheter placed as per vascular surgery team, dialysis as per renal team. Avoid nephrotoxic agents. Nephrology to decide about whether the patient needs outpatient hemodialysis. (6) DVT prophylaxis Current Visit: Yes Status: Acute Plan to address problem: SCD to bilateral lower extremities while in bed, prophylactic anticoagulation Subjective Date of service: 06/26/20 Principal diagnosis: DKA; Ac encephalopathy; Severe sepsis; Rhabdomyolysis; YUNI. Interval history: History Interval history: 44 YO Male HD #5 with Sepsis, resolved DKA, improved Toxic Metabolic Encephalopathy, ESRD requiring Hemodialysis, Rhabdomyolysis, Hypothermia. Patient status improved today. Patient is alert and oriented x3 and resting comfortably in bed. Patient denies pain. Patient states that he is feeling better today. Patient encouraged to increase oral free water intake as tolerated. No reported nursing events. Patient denies pain. Symptomatically better Patient undergoing hemodialysis Creatinine around 3.5 Good urine output Objective - Constitutional Vitals: Vital Signs - 12hr 06/26/20 06/26/20 06/26/20 09:45 10:00 10:15 Temperature 98.3 F Pulse Rate 100 H 99 H 100 H Respiratory 16 Rate Blood Pressure 128/73 128/73 128/73 O2 Sat by Pulse Oximetry 06/26/20 06/26/20 06/26/20 10:30 10:45 11:00 Temperature Pulse Rate 105 H 107 H 107 H Respiratory Rate Blood Pressure 125/71 134/77 122/74 O2 Sat by Pulse Oximetry 06/26/20 06/26/20 06/26/20 11:15 11:30 11:45 Temperature Pulse Rate 107 H 107 H 109 H Respiratory Rate Blood Pressure 123/78 122/74 115/72 O2 Sat by Pulse Oximetry 06/26/20 06/26/20 06/26/20 12:00 12:15 12:30 Temperature Pulse Rate 109 H 111 H 108 H Respiratory Rate Blood Pressure 119/79 113/75 120/75 O2 Sat by Pulse Oximetry 06/26/20 06/26/20 17:44 20:09 Temperature 98.0 F 98.9 F Pulse Rate 114 H 111 H Respiratory 18 18 Rate Blood Pressure 107/65 96/56 O2 Sat by Pulse 92 95 Oximetry General appearance: Present: no acute distress, well-nourished - EENT Eyes: PERRL, EOM intact ENT: hearing intact, clear oral mucosa Ears: bilateral: normal - Neck Neck: supple, normal ROM - Respiratory Respiratory effort: normal Respiratory: bilateral: CTA - Breasts Breasts: normal - Cardiovascular Heart rate: 78 Rhythm: regular Heart Sounds: Present: S1 & S2. Absent: gallop, rub Extremities: pulses intact, No edema, normal color, Full ROM - Gastrointestinal General gastrointestinal: Present: soft, non-tender, non-distended, normal bowel sounds - Genitourinary Male genitourinary: normal - Integumentary Integumentary: clear, warm, dry - Musculoskeletal Musculoskeletal: 1, strength equal bilaterally - Neurologic Neurologic: moves all extremities - Psychiatric Psychiatric: memory intact, appropriate mood/affect, intact judgment & insight - Labs CBC & Chem 7: 06/27/20 07:10 06/27/20 07:10 Labs: Abnormal lab results 06/25/20 06/26/20 06/26/20 Range/Units 16:58 04:06 07:18 WBC 14.0 H (4.5-11.0) K/mm3 RBC 2.52 L (3.65-5.03) M/mm3 Hgb 6.8 L (11.8-15.2) gm/dl Hct 21.0 L (35.5-45.6) % MCV 83 L (84-94) fl MCH 27 L (28-32) pg Seg Neuts % (Manual) 77.0 H (40.0-70.0) % Lymphocytes % (Manual) 12.0 L (13.4-35.0) % Seg Neutrophils # Man 10.8 H (1.8-7.7) K/mm3 Monocytes # (Manual) 1.0 H (0.0-0.8) K/mm3 Potassium (3.6-5.0) mmol/L BUN (9-20) mg/dL Creatinine (0.8-1.3) mg/dL Glucose (75-100) mg/dL POC Glucose 204 H (70-105) mg/dL Calcium (8.4-10.2) mg/dL Total Creatine Kinase (55-170) units/L Urine Creatinine 73.8 H (0.1-20.0) mg/dL Ur Total Protein 24 Hr 644.00 H (2-200) mg/dL Urine Total Protein 46 H (5-11.8) mg/dL 06/26/20 06/26/20 06/26/20 Range/Units 07:18 07:18 09:18 WBC (4.5-11.0) K/mm3 RBC (3.65-5.03) M/mm3 Hgb (11.8-15.2) gm/dl Hct (35.5-45.6) % MCV (84-94) fl MCH (28-32) pg Seg Neuts % (Manual) (40.0-70.0) % Lymphocytes % (Manual) (13.4-35.0) % Seg Neutrophils # Man (1.8-7.7) K/mm3 Monocytes # (Manual) (0.0-0.8) K/mm3 Potassium 3.0 L (3.6-5.0) mmol/L BUN 46 H (9-20) mg/dL Creatinine 3.7 H (0.8-1.3) mg/dL Glucose 234 H (75-100) mg/dL POC Glucose 235 H (70-105) mg/dL Calcium 8.2 L (8.4-10.2) mg/dL Total Creatine Kinase 1353 H (55-170) units/L Urine Creatinine (0.1-20.0) mg/dL Ur Total Protein 24 Hr (2-200) mg/dL Urine Total Protein (5-11.8) mg/dL 06/26/20 06/26/20 Range/Units 13:18 16:48 WBC (4.5-11.0) K/mm3 RBC (3.65-5.03) M/mm3 Hgb (11.8-15.2) gm/dl Hct (35.5-45.6) % MCV (84-94) fl MCH (28-32) pg Seg Neuts % (Manual) (40.0-70.0) % Lymphocytes % (Manual) (13.4-35.0) % Seg Neutrophils # Man (1.8-7.7) K/mm3 Monocytes # (Manual) (0.0-0.8) K/mm3 Potassium (3.6-5.0) mmol/L BUN (9-20) mg/dL Creatinine (0.8-1.3) mg/dL Glucose (75-100) mg/dL POC Glucose 175 H 205 H (70-105) mg/dL Calcium (8.4-10.2) mg/dL Total Creatine Kinase (55-170) units/L Urine Creatinine (0.1-20.0) mg/dL Ur Total Protein 24 Hr (2-200) mg/dL Urine Total Protein (5-11.8) mg/dL HEART Score - HEART Score Troponin: Troponin T < 0.010 ng/mL (0.00-0.029) 06/17/20 11:24
[2020-06-27] MEDS: INSULIN LISPRO 100 UNIT/ML VIAL 3 mL SUB-Q SCH ×4 (04:31→22:36)
[2020-06-27 08:52] LABS: Hemoglobin 6.3 gm/dl (11.8-15.2); Mean Corpuscular HGB Conc 33 % (32-34); Mean Corpuscular Volume 84 fl (84-94); Platelet Count 291 K/mm3 (140-440); Red Cell Distribution Width 14.3 % (13.2-15.2)
[2020-06-27 09:04] LABS: Hematocrit 19.4 % (35.5-45.6)
[2020-06-27 09:16] LABS: Calcium 8.5 mg/dL (8.4-10.2)
[2020-06-27] MEDS: FAMOTIDINE 20 MG TAB PO SCH (09:25)
[2020-06-27] MEDS: HEPARIN 5,000 UNIT/1 ML VIAL SUB-Q SCH ×2 (09:26→22:34)
[2020-06-27] MEDS: INSULIN GLARGINE 100 UNITS/ML SUB-Q SCH (09:41)
[2020-06-27 09:44] LABS: Anisocytosis 1+; Band Neutrophils # (Manual) 0.3 K/mm3; Total Cells Counted 100
[2020-06-27 09:45] LABS: Large Platelets Few; Platelet Estimate Consistent w Auto
--- NOTE | 2020-06-27 12:10 | Progress Note ---
Assessment and Plan Assessment * Acute kidney injury vs advanced CKD, unknown previous baseline * Uremia * Severe hypernatremia * Hyperkalemia * Rhabdomyolysis, severe * Acidosis * Acute encephalopathy * Sepsis * DKA Recommendations * Plan for HD q MWF and prn * stopped ivfs * k noted, increase k bath with hd * S/p Garcia, strict I's/O * 24hr [id number] with 1400ml UOP, monitor for renal recovery * Trend CPK daily, improving * F/u renal ultrasoud noted * DKA protocol per primary * Renally dose medications * Avoid nephrotoxins * if no continued improvement, may need outpatient hd clinic Subjective Date of service: 06/27/20 Principal diagnosis: DKA; Ac encephalopathy; Severe sepsis; Rhabdomyolysis; YUNI. Interval history: resting in bed today Objective - Exam Narrative Exam: Constitutional: No acute distress Head: Normocephalic/atraumatic Neck: Supple Lungs: Clear to auscultation bilaterally Cardiovascular: RRR, no M/R/G Abdomen: Soft, nontender, NABS Back, nontender Extremities: No edema, pulses within normal limits Skin: Intact, no rash Neuro: Tremulous, oriented only to self and time - Vital Signs Vital signs: Vital Signs - 12hr 06/27/20 06/27/20 03:54 07:44 Temperature 98.3 F 98.0 F Pulse Rate 104 H 101 H Respiratory 18 18 Rate Blood Pressure 110/70 101/65 O2 Sat by Pulse 94 95 Oximetry - Lab 06/27/20 07:10 06/27/20 07:10 Most recent lab results ABG pH 7.545 (7.320-7.450) H 06/24/20 16:17 Calcium 8.5 mg/dL (8.4-10.2) 06/27/20 07:10 Phosphorus 6.70 mg/dL (2.5-4.5) H 06/20/20 19:43 Magnesium 4.50 mg/dL (1.7-2.3) H 06/17/20 15:33 Urine Creatinine 73.8 mg/dL (0.1-20.0) H 06/25/20 16:58 Ur Total Protein 24 Hr 644.00 mg/dL (2-200) H 06/25/20 16:58 Urine Total Protein 46 mg/dL (5-11.8) H 06/25/20 16:58 Medications & Allergies - Medications Allergies/Adverse Reactions: Allergies No Known Allergies Allergy (Unverified 06/21/20 20:38) Home Medications: Home Medications Medication Instructions Recorded Confirmed Last Taken Type Atenolol 50 mg PO DAILY 06/23/20 06/23/20 Unknown History Insulin Degludec [Tresiba 52 unit SQ QHS 06/23/20 06/23/20 Unknown History Flextouch U-200] Insulin Lispro [Humalog Kwikpen 15 units SQ AC 06/23/20 06/23/20 Unknown History 200 UNITS/ML] Lisinopril [Zestril] 10 mg PO DAILY 06/23/20 06/23/20 Unknown History Semaglutide [Ozempic] 0.25 mg SQ 1XW 06/23/20 06/23/20 Unknown History Simvastatin 40 mg PO DAILY 06/23/20 06/23/20 Unknown History Active Medications: Generic Name Dose Route Start Last Admin Trade Name Freq PRN Reason Stop Dose Admin Acetaminophen 650 mg 06/17/20 13:40 06/25/20 15:09 Acetaminophen 325 Mg Tab PO 650 mg Q6H PRN Administration Pain, Mild (1-3) Albuterol 2.5 mg 06/17/20 13:40 Albuterol 2.5 Mg/3 Ml Nebu IH Q3HRT PRN Shortness Of Breath Dextrose 50 ml 06/19/20 15:28 Dextrose 50% In Water (25gm) 50 Ml Syringe IV Q30MIN PRN Hypoglycemia Protocol Epoetin Germán 20,000 unit 06/25/20 08:16 Epoetin Germán 20,000 Unit/1 Ml Inj IV MARIELLE PRN hemodialysis Famotidine 20 mg 06/19/20 10:00 06/27/20 09:25 Famotidine 20 Mg Tab PO 20 mg QDAY JERMAINE Administration Heparin Sodium (Porcine) 5,000 unit 06/17/20 22:00 06/27/20 09:26 Heparin 5,000 Unit/1 Ml Vial SUB-Q Not Given Q12HR JERMAINE Hydromorphone HCl 0.25 mg 06/17/20 13:40 06/22/20 23:58 Hydromorphone 1 Mg/1 Ml Inj IV 0.25 mg Q4H PRN Administration Pain, Moderate (4-6) Sodium Chloride 100 mls @ 999 mls/hr 06/24/20 12:00 Nacl 0.9% IV MARIELLE PRN Hypotension Insulin Glargine 15 units 06/23/20 23:00 06/26/20 22:07 Insulin Glargine 100 Units/Ml SUB-Q 15 units BID JERMAINE Administration Insulin Human Lispro 0 unit 06/18/20 16:00 06/27/20 04:31 Insulin Lispro 100 Unit/Ml Vial 3 Ml SUB-Q 6 unit Q6H JERMAINE Administration Protocol Sodium Bicarbonate 1,300 mg 06/24/20 12:00 06/26/20 22:06 Sodium Bicarbonate 650 Mg Tab PO 1,300 mg BID JERMAINE Administration Sodium Chloride 10 ml 06/17/20 22:00 06/27/20 09:26 Sodium Chloride 0.9% 10 Ml Flush Syringe IV 10 ml BID JERMAINE Administration Sodium Chloride 10 ml 06/17/20 13:40 Sodium Chloride 0.9% 10 Ml Flush Syringe IV PRN PRN LINE FLUSH
[2020-06-27] MEDS: SODIUM BICARBONATE 650 MG TAB PO SCH ×2 (13:15→22:35)
--- NOTE | 2020-06-27 14:17 | Progress Note ---
Assessment and Plan Patient sleeping on room air. no Respiratory distress. Patients O2 saturation 95% on room air. Patient afebrile. Has leukocytosis. Patients HGB dropped to 6.3. Patient scheduled for blood transfusion. ABG on room air. ABG pH 7.545 (7.320-7.450) H 06/24/20 16:17 POC ABG pCO2 34.2 mmHg (32.0-48.0) 06/24/20 16:17 POC ABG pO2 68.9 mmHg (83-108) L 06/24/20 16:17 POC ABG HCO3 28.9 06/24/20 16:17 Chest xray ordered but not done. - Patient Problems (1) DKA (diabetic ketoacidoses) Current Visit: Yes Status: Acute Qualifiers: Diabetes mellitus complication detail: with coma Plan to address problem: Patients blood sugur 155, Anion gap 12. management as per primary care. (2) YUNI (acute kidney injury) Current Visit: Yes Status: Acute Plan to address problem: Management as per nephrology. (3) Altered mental status Current Visit: Yes Status: Acute Plan to address problem: Improving management as per primary care. (4) End stage renal disease Current Visit: Yes Status: Acute Plan to address problem: Management as per nephrology. (5) Rhabdomyolysis Current Visit: Yes Status: Acute Qualifiers: Encounter type: initial encounter Plan to address problem: Total CPK 1353. patient is on I/V fluids. (6) Sepsis Current Visit: Yes Status: Acute Plan to address problem: Patient treated with I/V levaquin. (7) Anemia Current Visit: Yes Status: Acute Plan to address problem: Patients HGB dropped to 6.3. Patient scheduled for blood transfusion. Subjective Date of service: 06/27/20 Principal diagnosis: DKA; Ac encephalopathy; Severe sepsis; Rhabdomyolysis; YUNI. Interval history: Patient sleeping on room air. no Respiratory distress. Patients O2 saturation 95% on room air. Patient afebrile. Has leukocytosis. Patients HGB dropped to 6 .3. Patient scheduled for blood transfusion. ABG on room air. ABG pH 7.545 (7.320-7.450) H 06/24/20 16:17 POC ABG pCO2 34.2 mmHg (32.0-48.0) 06/24/20 16:17 POC ABG pO2 68.9 mmHg (83-108) L 06/24/20 16:17 POC ABG HCO3 28.9 06/24/20 16:17 Chest xray ordered but not done. Objective Vital Signs - 12hr 06/27/20 06/27/20 06/27/20 03:54 07:44 10:00 Temperature 98.3 F 98.0 F Pulse Rate 104 H 101 H 103 H Respiratory 18 18 Rate Blood Pressure 110/70 101/65 O2 Sat by Pulse 94 95 Oximetry Constitutional: no acute distress, alert, other (middle aged male with normal respiratory effort at rest) Eyes: non-icteric ENT: oropharynx moist Neck: supple, no lymphadenopathy, no JVD Effort: normal Ascultation: Bilateral: clear Percussion: Bilateral: not dull Cardiovascular: regular rate and rhythm Gastrointestinal: normoactive bowel sounds, soft, non-tender, non-distended Integumentary: rash (xeroderma) Extremities: no cyanosis, no edema, pulses normal, no ischemia or petechiae Neurologic: non-focal exam, pupils equal and round, CN II-XII normal, motor strength normal and Psychiatric: mood appropriate, affect normal CBC and BMP: 06/27/20 07:10 06/27/20 07:10 ABG, PT/INR, D-dimer: ABG ABG pH 7.545 (7.320-7.450) H 06/24/20 16:17 POC ABG pCO2 34.2 mmHg (32.0-48.0) 06/24/20 16:17 POC ABG pO2 68.9 mmHg (83-108) L 06/24/20 16:17 POC ABG HCO3 28.9 06/24/20 16:17 PT/INR, D-dimer PT 22.1 Sec. (12.2-14.9) H 06/17/20 11:24 INR 1.92 (0.87-1.13) H 06/17/20 11:24 Abnormal lab findings: Abnormal Labs 06/17/20 06/17/20 06/17/20 11:24 11:24 11:24 WBC 14.7 H RBC 5.38 H Hgb Hct 49.1 H MCV MCH 27 L MCHC 29 L Lymph % (Auto) 9.9 L [place] % (Auto) [place] # (Auto) Seg Neutrophils % 86.8 H Seg Neuts % (Manual) Lymphocytes % (Manual) Monocytes % (Manual) Nucleated RBC % Seg Neutrophils # 12.8 H Seg Neutrophils # Man Lymphocytes # (Manual) Monocytes # (Manual) Basophils # (Manual) PT 22.1 H INR 1.92 H APTT 38.9 H ABG pH POC ABG pO2 ABG Hemoglobin ABG Oxyhemoglobin ABG Sodium ABG Potassium ABG Glucose VBG pH Carboxyhemoglobin Sodium 149 H Potassium Chloride Carbon Dioxide BUN 84 H Creatinine 3.6 H Glucose 1394 H* POC Glucose Lactic Acid Calcium Phosphorus Magnesium AST 59 H ALT Total Creatine Kinase 5507 H CK-MB (CK-2) 7.9 H Total Protein 9.0 H Albumin 3.7 L Free T4 Arterial Blood Glucose Arterial Blood Ionized Calcium Urine WBC (Auto) Urine Creatinine Ur Total Protein 24 Hr Urine Total Protein 06/17/20 06/17/20 06/17/20 11:24 11:24 11:24 WBC RBC Hgb Hct MCV MCH MCHC Lymph % (Auto) [place] % (Auto) [place] # (Auto) Seg Neutrophils % Seg Neuts % (Manual) Lymphocytes % (Manual) Monocytes % (Manual) Nucleated RBC % Seg Neutrophils # Seg Neutrophils # Man Lymphocytes # (Manual) Monocytes # (Manual) Basophils # (Manual) PT INR APTT ABG pH POC ABG pO2 ABG Hemoglobin ABG Oxyhemoglobin ABG Sodium ABG Potassium ABG Glucose VBG pH 7.123 L* Carboxyhemoglobin Sodium Potassium Chloride Carbon Dioxide BUN Creatinine Glucose POC Glucose Lactic Acid Calcium Phosphorus Magnesium 6.20 H AST ALT Total Creatine Kinase CK-MB (CK-2) Total Protein Albumin Free T4 1.65 H Arterial Blood Glucose Arterial Blood Ionized Calcium Urine WBC (Auto) Urine Creatinine Ur Total Protein 24 Hr Urine Total Protein 06/17/20 06/17/20 06/17/20 15:27 15:33 15:33 WBC RBC Hgb Hct MCV MCH MCHC Lymph % (Auto) [place] % (Auto) [place] # (Auto) Seg Neutrophils % Seg Neuts % (Manual) Lymphocytes % (Manual) Monocytes % (Manual) Nucleated RBC % Seg Neutrophils # Seg Neutrophils # Man Lymphocytes # (Manual) Monocytes # (Manual) Basophils # (Manual) PT INR APTT ABG pH POC ABG pO2 ABG Hemoglobin ABG Oxyhemoglobin ABG Sodium ABG Potassium ABG Glucose VBG pH Carboxyhemoglobin Sodium Potassium Chloride Carbon Dioxide BUN Creatinine Glucose 1086 H* POC Glucose > 600 H Lactic Acid Calcium Phosphorus 9.40 H Magnesium 4.50 H AST ALT Total Creatine Kinase CK-MB (CK-2) Total Protein Albumin Free T4 Arterial Blood Glucose Arterial Blood Ionized Calcium Urine WBC (Auto) Urine Creatinine Ur Total Protein 24 Hr Urine Total Protein 06/17/20 06/17/20 06/17/20 16:58 18:39 18:41 WBC RBC Hgb Hct MCV MCH MCHC Lymph % (Auto) [place] % (Auto) [place] # (Auto) Seg Neutrophils % Seg Neuts % (Manual) Lymphocytes % (Manual) Monocytes % (Manual) Nucleated RBC % Seg Neutrophils # Seg Neutrophils # Man Lymphocytes # (Manual) Monocytes # (Manual) Basophils # (Manual) PT INR APTT ABG pH POC ABG pO2 ABG Hemoglobin ABG Oxyhemoglobin ABG Sodium ABG Potassium ABG Glucose VBG pH Carboxyhemoglobin Sodium 155 H 154 H Potassium 3.0 L D 2.8 L* Chloride 114.0 H 117.3 H Carbon Dioxide 20 L 19 L BUN 83 H 84 H Creatinine 3.2 H 3.3 H Glucose 1046 H* 830 H* POC Glucose > 600 H Lactic Acid Calcium 7.8 L D 7.9 L Phosphorus Magnesium AST ALT Total Creatine Kinase CK-MB (CK-2) Total Protein Albumin Free T4 Arterial Blood Glucose Arterial Blood Ionized Calcium Urine WBC (Auto) Urine Creatinine Ur Total Protein 24 Hr Urine Total Protein 06/17/20 06/17/20 06/17/20 21:15 21:15 Unknown WBC RBC Hgb Hct MCV MCH MCHC Lymph % (Auto) [place] % (Auto) [place] # (Auto) Seg Neutrophils % Seg Neuts % (Manual) Lymphocytes % (Manual) Monocytes % (Manual) Nucleated RBC % Seg Neutrophils # Seg Neutrophils # Man Lymphocytes # (Manual) Monocytes # (Manual) Basophils # (Manual) PT INR APTT ABG pH POC ABG pO2 ABG Hemoglobin ABG Oxyhemoglobin ABG Sodium ABG Potassium ABG Glucose VBG pH Carboxyhemoglobin Sodium 157 H Potassium 2.9 L* Chloride 118.8 H Carbon Dioxide 19 L BUN 84 H Creatinine 3.3 H Glucose 666 H* POC Glucose Lactic Acid 2.80 H* Calcium 7.8 L Phosphorus Magnesium AST ALT Total Creatine Kinase CK-MB (CK-2) Total Protein Albumin Free T4 Arterial Blood Glucose Arterial Blood Ionized Calcium Urine WBC (Auto) 7.0 H Urine Creatinine Ur Total Protein 24 Hr Urine Total Protein 06/18/20 06/18/20 06/18/20 00:10 00:20 03:20 WBC RBC Hgb Hct MCV MCH MCHC Lymph % (Auto) [place] % (Auto) [place] # (Auto) Seg Neutrophils % Seg Neuts % (Manual) Lymphocytes % (Manual) Monocytes % (Manual) Nucleated RBC % Seg Neutrophils # Seg Neutrophils # Man Lymphocytes # (Manual) Monocytes # (Manual) Basophils # (Manual) PT INR APTT ABG pH POC ABG pO2 ABG Hemoglobin ABG Oxyhemoglobin ABG Sodium ABG Potassium ABG Glucose VBG pH Carboxyhemoglobin Sodium 160 H Potassium 3.0 L Chloride 118.8 H Carbon Dioxide BUN 89 H Creatinine 3.8 H Glucose 650 H* POC Glucose 291 H Lactic Acid 2.40 H* Calcium 7.8 L Phosphorus Magnesium AST ALT Total Creatine Kinase CK-MB (CK-2) Total Protein Albumin Free T4 Arterial Blood Glucose Arterial Blood Ionized Calcium Urine WBC (Auto) Urine Creatinine Ur Total Protein 24 Hr Urine Total Protein 06/18/20 06/18/20 06/18/20 05:19 06:27 06:27 WBC RBC Hgb Hct MCV MCH MCHC Lymph % (Auto) [place] % (Auto) [place] # (Auto) Seg Neutrophils % Seg Neuts % (Manual) Lymphocytes % (Manual) Monocytes % (Manual) Nucleated RBC % Seg Neutrophils # Seg Neutrophils # Man Lymphocytes # (Manual) Monocytes # (Manual) Basophils # (Manual) PT INR APTT ABG pH POC ABG pO2 ABG Hemoglobin ABG Oxyhemoglobin ABG Sodium ABG Potassium ABG Glucose VBG pH Carboxyhemoglobin Sodium 167 H* Potassium 3.4 L Chloride 126.4 H Carbon Dioxide 21 L BUN 99 H Creatinine 4.5 H Glucose 291 H POC Glucose 276 H Lactic Acid 2.80 H* Calcium 8.1 L Phosphorus Magnesium AST ALT Total Creatine Kinase CK-MB (CK-2) Total Protein Albumin Free T4 Arterial Blood Glucose Arterial Blood Ionized Calcium Urine WBC (Auto) Urine Creatinine Ur Total Protein 24 Hr Urine Total Protein 06/18/20 06/18/20 06/18/20 06:45 08:40 08:49 WBC RBC Hgb Hct MCV MCH MCHC Lymph % (Auto) [place] % (Auto) [place] # (Auto) Seg Neutrophils % Seg Neuts % (Manual) Lymphocytes % (Manual) Monocytes % (Manual) Nucleated RBC % Seg Neutrophils # Seg Neutrophils # Man Lymphocytes # (Manual) Monocytes # (Manual) Basophils # (Manual) PT INR APTT ABG pH POC ABG pO2 ABG Hemoglobin ABG Oxyhemoglobin ABG Sodium ABG Potassium ABG Glucose VBG pH Carboxyhemoglobin Sodium Potassium Chloride Carbon Dioxide BUN Creatinine Glucose POC Glucose 215 H 182 H Lactic Acid 2.20 H* Calcium Phosphorus Magnesium AST ALT Total Creatine Kinase CK-MB (CK-2) Total Protein Albumin Free T4 Arterial Blood Glucose Arterial Blood Ionized Calcium Urine WBC (Auto) Urine Creatinine Ur Total Protein 24 Hr Urine Total Protein 06/18/20 06/18/20 06/18/20 10:01 10:28 11:40 WBC RBC Hgb Hct MCV MCH MCHC Lymph % (Auto) [place] % (Auto) [place] # (Auto) Seg Neutrophils % Seg Neuts % (Manual) Lymphocytes % (Manual) Monocytes % (Manual) Nucleated RBC % Seg Neutrophils # Seg Neutrophils # Man Lymphocytes # (Manual) Monocytes # (Manual) Basophils # (Manual) PT INR APTT ABG pH POC ABG pO2 ABG Hemoglobin ABG Oxyhemoglobin ABG Sodium ABG Potassium ABG Glucose VBG pH Carboxyhemoglobin Sodium 161 H* Potassium Chloride 125.4 H Carbon Dioxide 21 L BUN 98 H Creatinine 5.0 H Glucose 247 H POC Glucose 217 H Lactic Acid 3.20 H* Calcium 7.8 L Phosphorus Magnesium AST ALT Total Creatine Kinase CK-MB (CK-2) Total Protein Albumin Free T4 Arterial Blood Glucose Arterial Blood Ionized Calcium Urine WBC (Auto) Urine Creatinine Ur Total Protein 24 Hr Urine Total Protein 06/18/20 06/18/20 06/18/20 11:40 11:40 12:33 WBC RBC Hgb Hct MCV MCH MCHC Lymph % (Auto) [place] % (Auto) [place] # (Auto) Seg Neutrophils % Seg Neuts % (Manual) Lymphocytes % (Manual) Monocytes % (Manual) Nucleated RBC % Seg Neutrophils # Seg Neutrophils # Man Lymphocytes # (Manual) Monocytes # (Manual) Basophils # (Manual) PT INR APTT ABG pH POC ABG pO2 ABG Hemoglobin ABG Oxyhemoglobin ABG Sodium ABG Potassium ABG Glucose VBG pH Carboxyhemoglobin Sodium Potassium Chloride Carbon Dioxide BUN Creatinine Glucose POC Glucose 199 H Lactic Acid 2.40 H* Calcium Phosphorus Magnesium AST ALT Total Creatine Kinase 69119 H CK-MB (CK-2) Total Protein Albumin Free T4 Arterial Blood Glucose Arterial Blood Ionized Calcium Urine WBC (Auto) Urine Creatinine Ur Total Protein 24 Hr Urine Total Protein 06/18/20 06/18/20 06/18/20 13:57 16:27 21:58 WBC RBC Hgb Hct MCV MCH MCHC Lymph % (Auto) [place] % (Auto) [place] # (Auto) Seg Neutrophils % Seg Neuts % (Manual) Lymphocytes % (Manual) Monocytes % (Manual) Nucleated RBC % Seg Neutrophils # Seg Neutrophils # Man Lymphocytes # (Manual) Monocytes # (Manual) Basophils # (Manual) PT INR APTT ABG pH POC ABG pO2 ABG Hemoglobin ABG Oxyhemoglobin ABG Sodium ABG Potassium ABG Glucose VBG pH Carboxyhemoglobin Sodium Potassium Chloride Carbon Dioxide BUN Creatinine Glucose POC Glucose 198 H 185 H 281 H Lactic Acid Calcium Phosphorus Magnesium AST ALT Total Creatine Kinase CK-MB (CK-2) Total Protein Albumin Free T4 Arterial Blood Glucose Arterial Blood Ionized Calcium Urine WBC (Auto) Urine Creatinine Ur Total Protein 24 Hr Urine Total Protein 06/19/20 06/19/20 06/19/20 00:55 00:55 04:25 WBC RBC Hgb Hct MCV MCH MCHC Lymph % (Auto) [place] % (Auto) [place] # (Auto) Seg Neutrophils % Seg Neuts % (Manual) Lymphocytes % (Manual) Monocytes % (Manual) Nucleated RBC % Seg Neutrophils # Seg Neutrophils # Man Lymphocytes # (Manual) Monocytes # (Manual) Basophils # (Manual) PT INR APTT ABG pH POC ABG pO2 ABG Hemoglobin ABG Oxyhemoglobin ABG Sodium ABG Potassium ABG Glucose VBG pH Carboxyhemoglobin Sodium 164 H* Potassium Chloride 125.8 H Carbon Dioxide 21 L BUN 100 H Creatinine 6.4 H Glucose 370 H POC Glucose 366 H Lactic Acid 2.30 H* Calcium 7.4 L Phosphorus Magnesium AST ALT Total Creatine Kinase CK-MB (CK-2) Total Protein Albumin Free T4 Arterial Blood Glucose Arterial Blood Ionized Calcium Urine WBC (Auto) Urine Creatinine Ur Total Protein 24 Hr Urine Total Protein 06/19/20 06/19/20 06/19/20 11:49 14:24 15:44 WBC RBC Hgb Hct MCV MCH MCHC Lymph % (Auto) [place] % (Auto) [place] # (Auto) Seg Neutrophils % Seg Neuts % (Manual) Lymphocytes % (Manual) Monocytes % (Manual) Nucleated RBC % Seg Neutrophils # Seg Neutrophils # Man Lymphocytes # (Manual) Monocytes # (Manual) Basophils # (Manual) PT INR APTT ABG pH POC ABG pO2 ABG Hemoglobin ABG Oxyhemoglobin ABG Sodium ABG Potassium ABG Glucose VBG pH Carboxyhemoglobin Sodium Potassium Chloride Carbon Dioxide BUN Creatinine Glucose POC Glucose 411 H Lactic Acid 2.90 H* Calcium Phosphorus Magnesium AST ALT Total Creatine Kinase 93816 H CK-MB (CK-2) Total Protein Albumin Free T4 Arterial Blood Glucose Arterial Blood Ionized Calcium Urine WBC (Auto) Urine Creatinine Ur Total Protein 24 Hr Urine Total Protein 06/19/20 06/19/20 06/19/20 18:41 21:44 22:16 WBC RBC Hgb Hct MCV MCH MCHC Lymph % (Auto) [place] % (Auto) [place] # (Auto) Seg Neutrophils % Seg Neuts % (Manual) Lymphocytes % (Manual) Monocytes % (Manual) Nucleated RBC % Seg Neutrophils # Seg Neutrophils # Man Lymphocytes # (Manual) Monocytes # (Manual) Basophils # (Manual) PT INR APTT ABG pH POC ABG pO2 ABG Hemoglobin ABG Oxyhemoglobin ABG Sodium ABG Potassium ABG Glucose VBG pH Carboxyhemoglobin Sodium Potassium Chloride Carbon Dioxide BUN Creatinine Glucose POC Glucose 404 H 333 H Lactic Acid 2.50 H* Calcium Phosphorus Magnesium AST ALT Total Creatine Kinase CK-MB (CK-2) Total Protein Albumin Free T4 Arterial Blood Glucose Arterial Blood Ionized Calcium Urine WBC (Auto) Urine Creatinine Ur Total Protein 24 Hr Urine Total Protein 06/20/20 06/20/20 06/20/20 00:12 04:37 05:08 WBC RBC Hgb Hct MCV MCH MCHC Lymph % (Auto) [place] % (Auto) [place] # (Auto) Seg Neutrophils % Seg Neuts % (Manual) Lymphocytes % (Manual) Monocytes % (Manual) Nucleated RBC % Seg Neutrophils # Seg Neutrophils # Man Lymphocytes # (Manual) Monocytes # (Manual) Basophils # (Manual) PT INR APTT ABG pH POC ABG pO2 ABG Hemoglobin ABG Oxyhemoglobin ABG Sodium ABG Potassium ABG Glucose VBG pH Carboxyhemoglobin Sodium Potassium Chloride Carbon Dioxide BUN Creatinine Glucose POC Glucose 318 H Lactic Acid 2.10 H* Calcium Phosphorus Magnesium AST ALT Total Creatine Kinase 63583 H CK-MB (CK-2) Total Protein Albumin Free T4 Arterial Blood Glucose Arterial Blood Ionized Calcium Urine WBC (Auto) Urine Creatinine Ur Total Protein 24 Hr Urine Total Protein 06/20/20 06/20/20 06/20/20 10:19 14:47 14:47 WBC 15.1 H RBC Hgb 10.2 L Hct 32.0 L MCV MCH 27 L MCHC Lymph % (Auto) [place] % (Auto) [place] # (Auto) Seg Neutrophils % Seg Neuts % (Manual) 79.0 H Lymphocytes % (Manual) 12.0 L Monocytes % (Manual) Nucleated RBC % Seg Neutrophils # Seg Neutrophils # Man 11.9 H Lymphocytes # (Manual) Monocytes # (Manual) 1.1 H Basophils # (Manual) 0.2 H PT INR APTT ABG pH POC ABG pO2 ABG Hemoglobin ABG Oxyhemoglobin ABG Sodium ABG Potassium ABG Glucose VBG pH Carboxyhemoglobin Sodium 156 H Potassium 5.9 H D Chloride 118.3 H Carbon Dioxide 20 L BUN 159 H Creatinine 9.4 H Glucose 283 H POC Glucose 220 H Lactic Acid Calcium 7.7 L Phosphorus Magnesium AST 149 H ALT 89 H Total Creatine Kinase CK-MB (CK-2) Total Protein 5.9 L D Albumin 2.3 L Free T4 Arterial Blood Glucose Arterial Blood Ionized Calcium Urine WBC (Auto) Urine Creatinine Ur Total Protein 24 Hr Urine Total Protein 06/20/20 06/20/20 06/20/20 17:02 19:43 22:01 WBC RBC Hgb Hct MCV MCH MCHC Lymph % (Auto) [place] % (Auto) [place] # (Auto) Seg Neutrophils % Seg Neuts % (Manual) Lymphocytes % (Manual) Monocytes % (Manual) Nucleated RBC % Seg Neutrophils # Seg Neutrophils # Man Lymphocytes # (Manual) Monocytes # (Manual) Basophils # (Manual) PT INR APTT ABG pH POC ABG pO2 ABG Hemoglobin ABG Oxyhemoglobin ABG Sodium ABG Potassium ABG Glucose VBG pH Carboxyhemoglobin Sodium Potassium Chloride Carbon Dioxide BUN Creatinine Glucose POC Glucose 248 H 268 H Lactic Acid Calcium Phosphorus 6.70 H Magnesium AST ALT Total Creatine Kinase CK-MB (CK-2) Total Protein Albumin Free T4 Arterial Blood Glucose Arterial Blood Ionized Calcium Urine WBC (Auto) Urine Creatinine Ur Total Protein 24 Hr Urine Total Protein 06/21/20 06/21/20 06/21/20 02:22 04:28 09:45 WBC RBC Hgb Hct MCV MCH MCHC Lymph % (Auto) [place] % (Auto) [place] # (Auto) Seg Neutrophils % Seg Neuts % (Manual) Lymphocytes % (Manual) Monocytes % (Manual) Nucleated RBC % Seg Neutrophils # Seg Neutrophils # Man Lymphocytes # (Manual) Monocytes # (Manual) Basophils # (Manual) PT INR APTT ABG pH POC ABG pO2 ABG Hemoglobin ABG Oxyhemoglobin ABG Sodium ABG Potassium ABG Glucose VBG pH Carboxyhemoglobin Sodium Potassium Chloride Carbon Dioxide BUN Creatinine Glucose POC Glucose 248 H 237 H 234 H Lactic Acid Calcium Phosphorus Magnesium AST ALT Total Creatine Kinase CK-MB (CK-2) Total Protein Albumin Free T4 Arterial Blood Glucose Arterial Blood Ionized Calcium Urine WBC (Auto) Urine Creatinine Ur Total Protein 24 Hr Urine Total Protein 06/21/20 06/21/20 06/21/20 15:29 15:29 15:29 WBC 11.8 H RBC 3.51 L Hgb 9.3 L Hct 29.8 L MCV MCH 27 L MCHC 31 L Lymph % (Auto) [place] % (Auto) [place] # (Auto) Seg Neutrophils % Seg Neuts % (Manual) 81.0 H Lymphocytes % (Manual) 6.0 L Monocytes % (Manual) 10.0 H Nucleated RBC % Seg Neutrophils # Seg Neutrophils # Man 9.6 H Lymphocytes # (Manual) 0.7 L Monocytes # (Manual) 1.2 H Basophils # (Manual) PT INR APTT ABG pH POC ABG pO2 ABG Hemoglobin ABG Oxyhemoglobin ABG Sodium ABG Potassium ABG Glucose VBG pH Carboxyhemoglobin Sodium 152 H Potassium 6.0 H Chloride 115.0 H Carbon Dioxide 18 L BUN 161 H Creatinine 9.7 H Glucose 310 H POC Glucose Lactic Acid Calcium 7.9 L Phosphorus Magnesium AST ALT Total Creatine Kinase 55349 H CK-MB (CK-2) Total Protein Albumin Free T4 Arterial Blood Glucose Arterial Blood Ionized Calcium Urine WBC (Auto) Urine Creatinine Ur Total Protein 24 Hr Urine Total Protein 06/21/20 06/22/20 06/22/20 18:07 02:33 05:51 WBC 11.3 H RBC 3.18 L Hgb 8.6 L Hct 26.7 L MCV MCH 27 L MCHC Lymph % (Auto) 13.2 L [place] % (Auto) 10.8 H [place] # (Auto) 1.2 H Seg Neutrophils % 75.6 H Seg Neuts % (Manual) Lymphocytes % (Manual) Monocytes % (Manual) Nucleated RBC % Seg Neutrophils # 8.5 H Seg Neutrophils # Man Lymphocytes # (Manual) Monocytes # (Manual) Basophils # (Manual) PT INR APTT ABG pH POC ABG pO2 ABG Hemoglobin ABG Oxyhemoglobin ABG Sodium ABG Potassium ABG Glucose VBG pH Carboxyhemoglobin Sodium Potassium Chloride Carbon Dioxide BUN Creatinine Glucose POC Glucose 320 H 302 H Lactic Acid Calcium Phosphorus Magnesium AST ALT Total Creatine Kinase CK-MB (CK-2) Total Protein Albumin Free T4 Arterial Blood Glucose Arterial Blood Ionized Calcium Urine WBC (Auto) Urine Creatinine Ur Total Protein 24 Hr Urine Total Protein 06/22/20 06/22/20 06/22/20 05:51 10:57 11:47 WBC RBC Hgb Hct MCV MCH MCHC Lymph % (Auto) [place] % (Auto) [place] # (Auto) Seg Neutrophils % Seg Neuts % (Manual) Lymphocytes % (Manual) Monocytes % (Manual) Nucleated RBC % Seg Neutrophils # Seg Neutrophils # Man Lymphocytes # (Manual) Monocytes # (Manual) Basophils # (Manual) PT INR APTT ABG pH POC ABG pO2 ABG Hemoglobin ABG Oxyhemoglobin ABG Sodium ABG Potassium ABG Glucose VBG pH Carboxyhemoglobin Sodium Potassium Chloride Carbon Dioxide BUN 102 H Creatinine 7.1 H Glucose 357 H POC Glucose 438 H Lactic Acid Calcium 8.0 L Phosphorus Magnesium AST ALT Total Creatine Kinase 8530 H CK-MB (CK-2) Total Protein Albumin Free T4 Arterial Blood Glucose Arterial Blood Ionized Calcium Urine WBC (Auto) Urine Creatinine Ur Total Protein 24 Hr Urine Total Protein 06/23/20 06/23/20 06/23/20 02:12 04:38 05:13 WBC RBC 2.93 L Hgb 8.0 L Hct 24.8 L MCV MCH 27 L MCHC Lymph % (Auto) 13.0 L [place] % (Auto) 14.1 H [place] # (Auto) 1.5 H Seg Neutrophils % 72.4 H Seg Neuts % (Manual) Lymphocytes % (Manual) Monocytes % (Manual) Nucleated RBC % Seg Neutrophils # Seg Neutrophils # Man Lymphocytes # (Manual) Monocytes # (Manual) Basophils # (Manual) PT INR APTT ABG pH POC ABG pO2 ABG Hemoglobin ABG Oxyhemoglobin ABG Sodium ABG Potassium ABG Glucose VBG pH Carboxyhemoglobin Sodium Potassium Chloride Carbon Dioxide BUN Creatinine Glucose POC Glucose 417 H 390 H Lactic Acid Calcium Phosphorus Magnesium AST ALT Total Creatine Kinase CK-MB (CK-2) Total Protein Albumin Free T4 Arterial Blood Glucose Arterial Blood Ionized Calcium Urine WBC (Auto) Urine Creatinine Ur Total Protein 24 Hr Urine Total Protein 06/23/20 06/23/20 06/23/20 05:13 05:13 10:06 WBC RBC Hgb Hct MCV MCH MCHC Lymph % (Auto) [place] % (Auto) [place] # (Auto) Seg Neutrophils % Seg Neuts % (Manual) Lymphocytes % (Manual) Monocytes % (Manual) Nucleated RBC % Seg Neutrophils # Seg Neutrophils # Man Lymphocytes # (Manual) Monocytes # (Manual) Basophils # (Manual) PT INR APTT ABG pH POC ABG pO2 ABG Hemoglobin ABG Oxyhemoglobin ABG Sodium ABG Potassium ABG Glucose VBG pH Carboxyhemoglobin Sodium Potassium Chloride Carbon Dioxide BUN 90 H Creatinine 6.2 H Glucose 424 H POC Glucose 248 H Lactic Acid Calcium 7.8 L Phosphorus Magnesium AST ALT Total Creatine Kinase 8540 H CK-MB (CK-2) Total Protein Albumin Free T4 Arterial Blood Glucose Arterial Blood Ionized Calcium Urine WBC (Auto) Urine Creatinine Ur Total Protein 24 Hr Urine Total Protein 06/23/20 06/23/20 06/23/20 11:44 15:51 20:30 WBC RBC Hgb Hct MCV MCH MCHC Lymph % (Auto) [place] % (Auto) [place] # (Auto) Seg Neutrophils % Seg Neuts % (Manual) Lymphocytes % (Manual) Monocytes % (Manual) Nucleated RBC % Seg Neutrophils # Seg Neutrophils # Man Lymphocytes # (Manual) Monocytes # (Manual) Basophils # (Manual) PT INR APTT ABG pH POC ABG pO2 ABG Hemoglobin ABG Oxyhemoglobin ABG Sodium ABG Potassium ABG Glucose VBG pH Carboxyhemoglobin Sodium Potassium Chloride Carbon Dioxide BUN Creatinine Glucose POC Glucose 243 H 283 H 275 H Lactic Acid Calcium Phosphorus Magnesium AST ALT Total Creatine Kinase CK-MB (CK-2) Total Protein Albumin Free T4 Arterial Blood Glucose Arterial Blood Ionized Calcium Urine WBC (Auto) Urine Creatinine Ur Total Protein 24 Hr Urine Total Protein 06/24/20 06/24/20 06/24/20 04:56 06:35 06:35 WBC 12.1 H RBC 2.78 L Hgb 7.5 L Hct 23.2 L MCV MCH 27 L MCHC Lymph % (Auto) [place] % (Auto) [place] # (Auto) Seg Neutrophils % Seg Neuts % (Manual) 81.0 H Lymphocytes % (Manual) Monocytes % (Manual) Nucleated RBC % Seg Neutrophils # Seg Neutrophils # Man 9.8 H Lymphocytes # (Manual) Monocytes # (Manual) Basophils # (Manual) PT INR APTT ABG pH POC ABG pO2 ABG Hemoglobin ABG Oxyhemoglobin ABG Sodium ABG Potassium ABG Glucose VBG pH Carboxyhemoglobin Sodium Potassium Chloride Carbon Dioxide BUN 102 H Creatinine 7.1 H Glucose 324 H POC Glucose 269 H Lactic Acid Calcium Phosphorus Magnesium AST ALT Total Creatine Kinase 6347 H CK-MB (CK-2) Total Protein Albumin Free T4 Arterial Blood Glucose Arterial Blood Ionized Calcium Urine WBC (Auto) Urine Creatinine Ur Total Protein 24 Hr Urine Total Protein 06/24/20 06/24/20 06/24/20 10:22 12:11 16:17 WBC RBC Hgb Hct MCV MCH MCHC Lymph % (Auto) [place] % (Auto) [place] # (Auto) Seg Neutrophils % Seg Neuts % (Manual) Lymphocytes % (Manual) Monocytes % (Manual) Nucleated RBC % Seg Neutrophils # Seg Neutrophils # Man Lymphocytes # (Manual) Monocytes # (Manual) Basophils # (Manual) PT INR APTT ABG pH 7.545 H POC ABG pO2 68.9 L ABG Hemoglobin 6.8 L ABG Oxyhemoglobin 92.4 L ABG Sodium 135.1 L ABG Potassium 3.0 L ABG Glucose 199 H VBG pH Carboxyhemoglobin 1.7 H Sodium Potassium Chloride Carbon Dioxide BUN Creatinine Glucose POC Glucose 331 H 303 H Lactic Acid Calcium Phosphorus Magnesium AST ALT Total Creatine Kinase CK-MB (CK-2) Total Protein Albumin Free T4 Arterial Blood Glucose 199 H Arterial Blood Ionized Calcium 4.3 L Urine WBC (Auto) Urine Creatinine Ur Total Protein 24 Hr Urine Total Protein 06/24/20 06/25/20 06/25/20 16:22 00:46 04:44 WBC 12.0 H RBC 2.56 L Hgb 6.9 L Hct 21.2 L MCV 83 L MCH 27 L MCHC Lymph % (Auto) [place] % (Auto) 16.3 H [place] # (Auto) 2.0 H Seg Neutrophils % Seg Neuts % (Manual) Lymphocytes % (Manual) Monocytes % (Manual) Nucleated RBC % Seg Neutrophils # 8.1 H Seg Neutrophils # Man Lymphocytes # (Manual) Monocytes # (Manual) Basophils # (Manual) PT INR APTT ABG pH POC ABG pO2 ABG Hemoglobin ABG Oxyhemoglobin ABG Sodium ABG Potassium ABG Glucose VBG pH Carboxyhemoglobin Sodium Potassium Chloride Carbon Dioxide BUN Creatinine Glucose POC Glucose 173 H 391 H Lactic Acid Calcium Phosphorus Magnesium AST ALT Total Creatine Kinase CK-MB (CK-2) Total Protein Albumin Free T4 Arterial Blood Glucose Arterial Blood Ionized Calcium Urine WBC (Auto) Urine Creatinine Ur Total Protein 24 Hr Urine Total Protein 06/25/20 06/25/20 06/25/20 04:44 04:44 06:20 WBC RBC Hgb Hct MCV MCH MCHC Lymph % (Auto) [place] % (Auto) [place] # (Auto) Seg Neutrophils % Seg Neuts % (Manual) Lymphocytes % (Manual) Monocytes % (Manual) Nucleated RBC % Seg Neutrophils # Seg Neutrophils # Man Lymphocytes # (Manual) Monocytes # (Manual) Basophils # (Manual) PT INR APTT ABG pH POC ABG pO2 ABG Hemoglobin ABG Oxyhemoglobin ABG Sodium ABG Potassium ABG Glucose VBG pH Carboxyhemoglobin Sodium Potassium 3.4 L Chloride Carbon Dioxide BUN 63 H Creatinine 4.7 H Glucose 300 H POC Glucose 240 H Lactic Acid Calcium 8.2 L Phosphorus Magnesium AST ALT Total Creatine Kinase 3017 H CK-MB (CK-2) Total Protein Albumin Free T4 Arterial Blood Glucose Arterial Blood Ionized Calcium Urine WBC (Auto) Urine Creatinine Ur Total Protein 24 Hr Urine Total Protein 06/25/20 06/25/20 06/25/20 08:20 16:57 16:58 WBC RBC Hgb Hct MCV MCH MCHC Lymph % (Auto) [place] % (Auto) [place] # (Auto) Seg Neutrophils % Seg Neuts % (Manual) Lymphocytes % (Manual) Monocytes % (Manual) Nucleated RBC % Seg Neutrophils # Seg Neutrophils # Man Lymphocytes # (Manual) Monocytes # (Manual) Basophils # (Manual) PT INR APTT ABG pH POC ABG pO2 ABG Hemoglobin ABG Oxyhemoglobin ABG Sodium ABG Potassium ABG Glucose VBG pH Carboxyhemoglobin Sodium Potassium Chloride Carbon Dioxide BUN Creatinine Glucose POC Glucose 207 H 284 H Lactic Acid Calcium Phosphorus Magnesium AST ALT Total Creatine Kinase CK-MB (CK-2) Total Protein Albumin Free T4 Arterial Blood Glucose Arterial Blood Ionized Calcium Urine WBC (Auto) Urine Creatinine 73.8 H Ur Total Protein 24 Hr 644.00 H Urine Total Protein 46 H 06/25/20 06/26/20 06/26/20 21:20 04:06 07:18 WBC 14.0 H RBC 2.52 L Hgb 6.8 L Hct 21.0 L MCV 83 L MCH 27 L MCHC Lymph % (Auto) [place] % (Auto) [place] # (Auto) Seg Neutrophils % Seg Neuts % (Manual) 77.0 H Lymphocytes % (Manual) 12.0 L Monocytes % (Manual) Nucleated RBC % Seg Neutrophils # Seg Neutrophils # Man 10.8 H Lymphocytes # (Manual) Monocytes # (Manual) 1.0 H Basophils # (Manual) PT INR APTT ABG pH POC ABG pO2 ABG Hemoglobin ABG Oxyhemoglobin ABG Sodium ABG Potassium ABG Glucose VBG pH Carboxyhemoglobin Sodium Potassium Chloride Carbon Dioxide BUN Creatinine Glucose POC Glucose 259 H 204 H Lactic Acid Calcium Phosphorus Magnesium AST ALT Total Creatine Kinase CK-MB (CK-2) Total Protein Albumin Free T4 Arterial Blood Glucose Arterial Blood Ionized Calcium Urine WBC (Auto) Urine Creatinine Ur Total Protein 24 Hr Urine Total Protein 06/26/20 06/26/20 06/26/20 07:18 07:18 09:18 WBC RBC Hgb Hct MCV MCH MCHC Lymph % (Auto) [place] % (Auto) [place] # (Auto) Seg Neutrophils % Seg Neuts % (Manual) Lymphocytes % (Manual) Monocytes % (Manual) Nucleated RBC % Seg Neutrophils # Seg Neutrophils # Man Lymphocytes # (Manual) Monocytes # (Manual) Basophils # (Manual) PT INR APTT ABG pH POC ABG pO2 ABG Hemoglobin ABG Oxyhemoglobin ABG Sodium ABG Potassium ABG Glucose VBG pH Carboxyhemoglobin Sodium Potassium 3.0 L Chloride Carbon Dioxide BUN 46 H Creatinine 3.7 H Glucose 234 H POC Glucose 235 H Lactic Acid Calcium 8.2 L Phosphorus Magnesium AST ALT Total Creatine Kinase 1353 H CK-MB (CK-2) Total Protein Albumin Free T4 Arterial Blood Glucose Arterial Blood Ionized Calcium Urine WBC (Auto) Urine Creatinine Ur Total Protein 24 Hr Urine Total Protein 06/26/20 06/26/20 06/26/20 13:18 16:48 21:57 WBC RBC Hgb Hct MCV MCH MCHC Lymph % (Auto) [place] % (Auto) [place] # (Auto) Seg Neutrophils % Seg Neuts % (Manual) Lymphocytes % (Manual) Monocytes % (Manual) Nucleated RBC % Seg Neutrophils # Seg Neutrophils # Man Lymphocytes # (Manual) Monocytes # (Manual) Basophils # (Manual) PT INR APTT ABG pH POC ABG pO2 ABG Hemoglobin ABG Oxyhemoglobin ABG Sodium ABG Potassium ABG Glucose VBG pH Carboxyhemoglobin Sodium Potassium Chloride Carbon Dioxide BUN Creatinine Glucose POC Glucose 175 H 205 H 201 H Lactic Acid Calcium Phosphorus Magnesium AST ALT Total Creatine Kinase CK-MB (CK-2) Total Protein Albumin Free T4 Arterial Blood Glucose Arterial Blood Ionized Calcium Urine WBC (Auto) Urine Creatinine Ur Total Protein 24 Hr Urine Total Protein 06/27/20 06/27/20 06/27/20 03:51 07:10 07:10 WBC 13.3 H RBC 2.30 L Hgb 6.3 L Hct 19.4 L* MCV MCH 27 L MCHC Lymph % (Auto) [place] % (Auto) [place] # (Auto) Seg Neutrophils % Seg Neuts % (Manual) 77.0 H Lymphocytes % (Manual) 13.0 L Monocytes % (Manual) Nucleated RBC % 1.0 H Seg Neutrophils # Seg Neutrophils # Man 10.2 H Lymphocytes # (Manual) Monocytes # (Manual) 0.9 H Basophils # (Manual) PT INR APTT ABG pH POC ABG pO2 ABG Hemoglobin ABG Oxyhemoglobin ABG Sodium ABG Potassium ABG Glucose VBG pH Carboxyhemoglobin Sodium Potassium 3.1 L Chloride Carbon Dioxide 31 H BUN 36 H Creatinine 3.2 H Glucose 176 H POC Glucose 208 H Lactic Acid Calcium Phosphorus Magnesium AST ALT Total Creatine Kinase CK-MB (CK-2) Total Protein Albumin Free T4 Arterial Blood Glucose Arterial Blood Ionized Calcium Urine WBC (Auto) Urine Creatinine Ur Total Protein 24 Hr Urine Total Protein 06/27/20 06/27/20 06/27/20 07:10 07:43 09:41 WBC RBC Hgb Hct MCV MCH MCHC Lymph % (Auto) [place] % (Auto) [place] # (Auto) Seg Neutrophils % Seg Neuts % (Manual) Lymphocytes % (Manual) Monocytes % (Manual) Nucleated RBC % Seg Neutrophils # Seg Neutrophils # Man Lymphocytes # (Manual) Monocytes # (Manual) Basophils # (Manual) PT INR APTT ABG pH POC ABG pO2 ABG Hemoglobin ABG Oxyhemoglobin ABG Sodium ABG Potassium ABG Glucose VBG pH Carboxyhemoglobin Sodium Potassium Chloride Carbon Dioxide BUN Creatinine Glucose POC Glucose 155 H 328 H Lactic Acid Calcium Phosphorus Magnesium AST ALT Total Creatine Kinase 801 H CK-MB (CK-2) Total Protein Albumin Free T4 Arterial Blood Glucose Arterial Blood Ionized Calcium Urine WBC (Auto) Urine Creatinine Ur Total Protein 24 Hr Urine Total Protein Allied health notes reviewed: nursing
[2020-06-27] MEDS ORDERED: SODIUM CHLORIDE 0.9% 500 ML 500 ML IV NR (18:10)
--- NOTE | 2020-06-27 18:37 | Progress Note ---
Assessment and Plan - Patient Problems (1) Sepsis Current Visit: Yes Status: Acute Plan to address problem: Sepsis resolved (2) Toxic metabolic encephalopathy Current Visit: Yes Status: Acute Plan to address problem: Resolved, continue current care, (3) IDDM Current Visit: Yes Status: Acute Qualifiers: Diabetes mellitus complication detail: with coma Plan to address problem: DKA resolved, sliding-scale insulin therapy, Accu-Chek, hypoglycemia protocol Insulin changed to Humulin 70/30 20 units twice a day for better control and compliance (4) Rhabdomyolysis Current Visit: Yes Status: Acute Qualifiers: Encounter type: initial encounter Plan to address problem: IV fluid resuscitation therapy, monitor urine output every shift, CK level improving today. Repeat CK in a.m. Creatinine kinase every 12 hours reordered (5) End stage renal disease Current Visit: Yes Status: Acute Plan to address problem: Hemodialysis catheter placed as per vascular surgery team, dialysis as per renal team. Avoid nephrotoxic agents. Nephrology to decide about whether the patient needs outpatient hemodialysis. (6) DVT prophylaxis Current Visit: Yes Status: Acute Plan to address problem: SCD to bilateral lower extremities while in bed, prophylactic anticoagulation Subjective Date of service: 06/27/20 Principal diagnosis: DKA; Ac encephalopathy; Severe sepsis; Rhabdomyolysis; YUNI. Interval history: History Interval history: 44 YO Male HD #5 with Sepsis, resolved DKA, improved Toxic Metabolic Encephalopathy, ESRD requiring Hemodialysis, Rhabdomyolysis, Hypothermia. Patient status improved today. Patient is alert and oriented x3 and resting comfortably in bed. Patient denies pain. Patient states that he is feeling better today. Patient encouraged to increase oral free water intake as tolerated. No reported nursing events. Patient denies pain. Symptomatically better Patient undergoing hemodialysis Creatinine around 3.5 Good urine output Objective - Constitutional Vitals: Vital Signs - 12hr 06/27/20 06/27/20 06/27/20 07:44 10:00 16:02 Temperature 98.0 F 98.0 F Pulse Rate 101 H 103 H 104 H Respiratory 18 18 Rate Blood Pressure 101/65 116/78 O2 Sat by Pulse 95 94 Oximetry General appearance: Present: no acute distress, well-nourished - EENT Eyes: PERRL, EOM intact ENT: hearing intact, clear oral mucosa Ears: bilateral: normal - Neck Neck: supple, normal ROM - Respiratory Respiratory effort: normal Respiratory: bilateral: CTA - Breasts Breasts: normal - Cardiovascular Heart rate: 78 Rhythm: regular Heart Sounds: Present: S1 & S2. Absent: gallop, rub Extremities: pulses intact, No edema, normal color, Full ROM - Gastrointestinal General gastrointestinal: Present: soft, non-tender, non-distended, normal bowel sounds - Genitourinary Male genitourinary: normal - Integumentary Integumentary: clear, warm, dry - Musculoskeletal Musculoskeletal: 1, strength equal bilaterally - Neurologic Neurologic: moves all extremities - Psychiatric Psychiatric: memory intact, appropriate mood/affect, intact judgment & insight - Labs CBC & Chem 7: 06/27/20 07:10 06/27/20 07:10 Labs: Abnormal lab results 06/26/20 06/27/20 06/27/20 Range/Units 21:57 03:51 07:10 WBC 13.3 H (4.5-11.0) K/mm3 RBC 2.30 L (3.65-5.03) M/mm3 Hgb 6.3 L (11.8-15.2) gm/dl Hct 19.4 L* (35.5-45.6) % MCH 27 L (28-32) pg Seg Neuts % (Manual) 77.0 H (40.0-70.0) % Lymphocytes % (Manual) 13.0 L (13.4-35.0) % Nucleated RBC % 1.0 H (0.0-0.9) % Seg Neutrophils # Man 10.2 H (1.8-7.7) K/mm3 Monocytes # (Manual) 0.9 H (0.0-0.8) K/mm3 Potassium (3.6-5.0) mmol/L Carbon Dioxide (22-30) mmol/L BUN (9-20) mg/dL Creatinine (0.8-1.3) mg/dL Glucose (75-100) mg/dL POC Glucose 201 H 208 H (70-105) mg/dL Total Creatine Kinase (55-170) units/L Crossmatch 06/27/20 06/27/20 06/27/20 Range/Units 07:10 07:10 07:43 WBC (4.5-11.0) K/mm3 RBC (3.65-5.03) M/mm3 Hgb (11.8-15.2) gm/dl Hct (35.5-45.6) % MCH (28-32) pg Seg Neuts % (Manual) (40.0-70.0) % Lymphocytes % (Manual) (13.4-35.0) % Nucleated RBC % (0.0-0.9) % Seg Neutrophils # Man (1.8-7.7) K/mm3 Monocytes # (Manual) (0.0-0.8) K/mm3 Potassium 3.1 L (3.6-5.0) mmol/L Carbon Dioxide 31 H (22-30) mmol/L BUN 36 H (9-20) mg/dL Creatinine 3.2 H (0.8-1.3) mg/dL Glucose 176 H (75-100) mg/dL POC Glucose 155 H (70-105) mg/dL Total Creatine Kinase 801 H (55-170) units/L Crossmatch 06/27/20 06/27/20 06/27/20 Range/Units 09:41 10:54 16:01 WBC (4.5-11.0) K/mm3 RBC (3.65-5.03) M/mm3 Hgb (11.8-15.2) gm/dl Hct (35.5-45.6) % MCH (28-32) pg Seg Neuts % (Manual) (40.0-70.0) % Lymphocytes % (Manual) (13.4-35.0) % Nucleated RBC % (0.0-0.9) % Seg Neutrophils # Man (1.8-7.7) K/mm3 Monocytes # (Manual) (0.0-0.8) K/mm3 Potassium (3.6-5.0) mmol/L Carbon Dioxide (22-30) mmol/L BUN (9-20) mg/dL Creatinine (0.8-1.3) mg/dL Glucose (75-100) mg/dL POC Glucose 328 H 394 H (70-105) mg/dL Total Creatine Kinase (55-170) units/L Crossmatch See Detail HEART Score - HEART Score Troponin: Troponin T < 0.010 ng/mL (0.00-0.029) 06/17/20 11:24
[2020-06-28] MEDS: INSULIN LISPRO 100 UNIT/ML VIAL 3 mL SUB-Q SCH ×4 (04:45→21:43)
[2020-06-28 07:33] LABS: Hematocrit 20.5 % (35.5-45.6); Hemoglobin 6.6 gm/dl (11.8-15.2); Mean Corpuscular HGB Conc 32 % (32-34); Mean Corpuscular Volume 83 fl (84-94); Platelet Count 279 K/mm3 (140-440); Red Blood Count 2.49 M/mm3 (3.65-5.03); Red Cell Distribution Width 15.7 % (13.2-15.2)
[2020-06-28 07:53] LABS: Calcium 8.6 mg/dL (8.4-10.2)
--- NOTE | 2020-06-28 08:29 | XRay Report ---
CHEST 2 VIEWS INDICATION / CLINICAL INFORMATION: sepsis, possible aspiration.. COMPARISON: 06/24/20 FINDINGS: SUPPORT DEVICES: Right central line is unchanged. HEART / MEDIASTINUM: No significant abnormality. LUNGS / PLEURA: Patchy density in the right mid to upper lung is unchanged. No pneumothorax. ADDITIONAL FINDINGS: No significant additional findings. IMPRESSION: 1. No significant change. Signer Name: Domenic Rendon MD Signed: 06/28/2020 8:24 AM Workstation Name: [id number]
[2020-06-28 08:50] LABS: Band Neutrophils # (Manual) 0.5 K/mm3; Hypochromasia 1+; Myelocytes # (Manual) 0.4 K/mm3; Platelet Estimate Consistent w Auto; Total Cells Counted 100
[2020-06-28] MEDS: SODIUM BICARBONATE 650 MG TAB PO SCH ×2 (09:41→21:43)
[2020-06-28] MEDS: HEPARIN 5,000 UNIT/1 ML VIAL SUB-Q SCH ×2 (09:41→21:43)
[2020-06-28] MEDS: FAMOTIDINE 20 MG TAB PO SCH (09:41)
[2020-06-28] MEDS: INSULIN NPH/REGULAR 70/30 INJ SUB-Q SCH ×2 (09:42→17:39)
--- NOTE | 2020-06-28 13:49 | Progress Note ---
Assessment and Plan Assessment * Acute kidney injury vs advanced CKD, unknown previous baseline * Uremia * Severe hypernatremia * Hyperkalemia * Rhabdomyolysis, severe * Acidosis * Acute encephalopathy * Sepsis * DKA Recommendations * Plan for HD q MWF, due today * k noted, increase k bath with hd to 3K * S/p Garcia, strict I's/O * 24hr [id number] with 1600ml UOP over past 24 hours, monitor for renal recovery * Creatinine did increase off HD, continue HD for now * Trend CPK daily * Reviewed prior imaging * DKA protocol per primary * Renally dose medications * Avoid nephrotoxins * if no continued improvement, may need outpatient hd clinic, appreciate case management Subjective Date of service: 06/28/20 Principal diagnosis: DKA; Ac encephalopathy; Severe sepsis; Rhabdomyolysis; YUNI. Interval history: No acute issues noted this AM, notes feeling well. No issues with last HD treatment, no cramping, dizziness Objective - Exam Narrative Exam: Constitutional: No acute distress Head: Normocephalic/atraumatic Neck: Supple Lungs: Clear to auscultation bilaterally Cardiovascular: RRR, no M/R/G Abdomen: Soft, nontender, NABS Back, nontender Extremities: No edema, pulses within normal limits Skin: Intact, no rash Neuro: alert and oriented x3 - Vital Signs Vital signs: Vital Signs - 12hr 06/28/20 06/28/20 06/28/20 01:55 02:25 02:55 Temperature 98.9 F 99.2 F 98.5 F Pulse Rate 105 H 105 H 101 H Pulse Rate [ Apical] Respiratory 18 16 18 Rate Blood Pressure 109/64 112/63 113/73 O2 Sat by Pulse 99 97 96 Oximetry 06/28/20 06/28/20 06/28/20 04:47 08:53 10:00 Temperature 98.0 F 97.9 F Pulse Rate 103 H 105 H Pulse Rate [ 100 H Apical] Respiratory 18 18 Rate Blood Pressure 101/58 120/75 O2 Sat by Pulse 95 97 96 Oximetry 06/28/20 06/28/20 06/28/20 10:20 10:25 10:30 Temperature 98.9 F Pulse Rate 104 H 103 H 110 H Pulse Rate [ Apical] Respiratory 18 Rate Blood Pressure 130/70 126/71 119/70 O2 Sat by Pulse Oximetry 06/28/20 06/28/20 06/28/20 10:45 11:00 11:30 Temperature Pulse Rate 106 H 108 H 108 H Pulse Rate [ Apical] Respiratory Rate Blood Pressure 120/83 115/78 124/75 O2 Sat by Pulse Oximetry 06/28/20 06/28/20 06/28/20 11:45 12:00 12:15 Temperature Pulse Rate 106 H 107 H 107 H Pulse Rate [ Apical] Respiratory Rate Blood Pressure 130/75 122/76 123/74 O2 Sat by Pulse Oximetry 06/28/20 06/28/20 12:30 12:45 Temperature Pulse Rate 107 H 109 H Pulse Rate [ Apical] Respiratory Rate Blood Pressure 120/73 120/74 O2 Sat by Pulse Oximetry - Lab 06/28/20 07:12 06/28/20 07:12 Most recent lab results ABG pH 7.545 (7.320-7.450) H 06/24/20 16:17 Calcium 8.6 mg/dL (8.4-10.2) 06/28/20 07:12 Phosphorus 6.70 mg/dL (2.5-4.5) H 06/20/20 19:43 Magnesium 4.50 mg/dL (1.7-2.3) H 06/17/20 15:33 Urine Creatinine 73.8 mg/dL (0.1-20.0) H 06/25/20 16:58 Ur Total Protein 24 Hr 644.00 mg/dL (2-200) H 06/25/20 16:58 Urine Total Protein 46 mg/dL (5-11.8) H 06/25/20 16:58 Medications & Allergies - Medications Allergies/Adverse Reactions: Allergies No Known Allergies Allergy (Unverified 06/21/20 20:38) Home Medications: Home Medications Medication Instructions Recorded Confirmed Last Taken Type Atenolol 50 mg PO DAILY 06/23/20 06/23/20 Unknown History Insulin Degludec [Tresiba 52 unit SQ QHS 06/23/20 06/23/20 Unknown History Flextouch U-200] Insulin Lispro [Humalog Kwikpen 15 units SQ AC 06/23/20 06/23/20 Unknown History 200 UNITS/ML] Lisinopril [Zestril] 10 mg PO DAILY 06/23/20 06/23/20 Unknown History Semaglutide [Ozempic] 0.25 mg SQ 1XW 06/23/20 06/23/20 Unknown History Simvastatin 40 mg PO DAILY 06/23/20 06/23/20 Unknown History Active Medications: Generic Name Dose Route Start Last Admin Trade Name Freq PRN Reason Stop Dose Admin Acetaminophen 650 mg 06/17/20 13:40 06/25/20 15:09 Acetaminophen 325 Mg Tab PO 650 mg Q6H PRN Administration Pain, Mild (1-3) Albuterol 2.5 mg 06/17/20 13:40 Albuterol 2.5 Mg/3 Ml Nebu IH Q3HRT PRN Shortness Of Breath Dextrose 50 ml 06/19/20 15:28 Dextrose 50% In Water (25gm) 50 Ml Syringe IV Q30MIN PRN Hypoglycemia Protocol Epoetin Germán 20,000 unit 06/25/20 08:16 Epoetin Germán 20,000 Unit/1 Ml Inj IV MARIELLE PRN hemodialysis Famotidine 20 mg 06/19/20 10:00 06/28/20 09:41 Famotidine 20 Mg Tab PO 20 mg QDAY JERMAINE Administration Heparin Sodium (Porcine) 5,000 unit 06/17/20 22:00 06/28/20 09:41 Heparin 5,000 Unit/1 Ml Vial SUB-Q 5,000 unit Q12HR JERMAINE Administration Hydromorphone HCl 0.25 mg 06/17/20 13:40 06/22/20 23:58 Hydromorphone 1 Mg/1 Ml Inj IV 0.25 mg Q4H PRN Administration Pain, Moderate (4-6) Sodium Chloride 100 mls @ 999 mls/hr 06/24/20 12:00 Nacl 0.9% IV MARIELLE PRN Hypotension Insulin Human Isoph/Insulin Regular 20 unit 06/28/20 08:00 06/28/20 09:42 Insulin Nph/Regular 70/30 Inj SUB-Q 20 unit BIDDIAB JERMAINE Administration Insulin Human Lispro 0 unit 06/18/20 16:00 06/28/20 04:45 Insulin Lispro 100 Unit/Ml Vial 3 Ml SUB-Q 6 unit Q6H JERMAINE Administration Protocol Sodium Bicarbonate 1,300 mg 06/24/20 12:00 06/28/20 09:41 Sodium Bicarbonate 650 Mg Tab PO 1,300 mg BID JERMAINE Administration Sodium Chloride 10 ml 06/17/20 22:00 06/27/20 22:36 Sodium Chloride 0.9% 10 Ml Flush Syringe IV 10 ml BID JERMAINE Administration Sodium Chloride 10 ml 06/17/20 13:40 Sodium Chloride 0.9% 10 Ml Flush Syringe IV PRN PRN LINE FLUSH
--- NOTE | 2020-06-28 14:17 | Progress Note ---
Assessment and Plan PPatient just came from dialysis. Patient on room air. no Respiratory distress. Patients O2 saturation 95% on room air. Patient afebrile. Has leukocytosis. Patients HGB dropped to 6.3. Patient received blood transfusion. Repeat HGB 6.6. Recommend other unit of blood transfusion. ABG on room air. ABG pH 7.545 (7.320-7.450) H 06/24/20 16:17 POC ABG pCO2 34.2 mmHg (32.0-48.0) 06/24/20 16:17 POC ABG pO2 68.9 mmHg (83-108) L 06/24/20 16:17 POC ABG HCO3 28.9 06/24/20 16:17 Chest xray done 06/28/19 done reported Patchy density in the right mid to upper lung is unchanged. No pneumothorax. - Patient Problems (1) DKA (diabetic ketoacidoses) Current Visit: Yes Status: Acute Qualifiers: Diabetes mellitus complication detail: with coma Plan to address problem: Patients blood sugur 261, Anion gap 9. management as per primary care. (2) YUNI (acute kidney injury) Current Visit: Yes Status: Acute Plan to address problem: Management as per nephrology. (3) Altered mental status Current Visit: Yes Status: Acute Plan to address problem: Improving management as per primary care. (4) End stage renal disease Current Visit: Yes Status: Acute Plan to address problem: Management as per nephrology. (5) Rhabdomyolysis Current Visit: Yes Status: Acute Qualifiers: Encounter type: initial encounter Plan to address problem: Total CPK came down to 418. patient is on I/V fluids. (6) Sepsis Current Visit: Yes Status: Acute Plan to address problem: Patient treated with I/V levaquin. (7) Anemia Current Visit: Yes Status: Acute Plan to address problem: Patients HGB dropped to 6.3. Patient received blood transfusion. Repeat HGB 6.6. Recommend to transfuse other unit. Subjective Date of service: 06/28/20 Principal diagnosis: DKA; Ac encephalopathy; Severe sepsis; Rhabdomyolysis; YUNI. Interval history: Patient just came from dialysis. Patient on room air. no Respiratory distress. Patients O2 saturation 95% on room air. Patient afebrile. Has leukocytosis. Patients HGB dropped to 6.3. Patient received blood transfusion. Repeat HGB 6.6. Recommend other unit of blood transfusion. ABG on room air. ABG pH 7.545 (7.320-7.450) H 06/24/20 16:17 POC ABG pCO2 34.2 mmHg (32.0-48.0) 06/24/20 16:17 POC ABG pO2 68.9 mmHg (83-108) L 06/24/20 16:17 POC ABG HCO3 28.9 06/24/20 16:17 Chest xray done 06/28/19 done reported Patchy density in the right mid to upper lung is unchanged. No pneumothorax. Objective Vital Signs - 12hr 06/28/20 06/28/20 06/28/20 02:25 02:55 04:47 Temperature 99.2 F 98.5 F 98.0 F Pulse Rate 105 H 101 H 103 H Pulse Rate [ Apical] Respiratory 16 18 18 Rate Blood Pressure 112/63 113/73 101/58 O2 Sat by Pulse 97 96 95 Oximetry 06/28/20 06/28/20 06/28/20 08:53 10:00 10:20 Temperature 97.9 F 98.9 F Pulse Rate 105 H 104 H Pulse Rate [ 100 H Apical] Respiratory 18 18 Rate Blood Pressure 120/75 130/70 O2 Sat by Pulse 97 96 Oximetry 06/28/20 06/28/20 06/28/20 10:25 10:30 10:45 Temperature Pulse Rate 103 H 110 H 106 H Pulse Rate [ Apical] Respiratory Rate Blood Pressure 126/71 119/70 120/83 O2 Sat by Pulse Oximetry 06/28/20 06/28/20 06/28/20 11:00 11:30 11:45 Temperature Pulse Rate 108 H 108 H 106 H Pulse Rate [ Apical] Respiratory Rate Blood Pressure 115/78 124/75 130/75 O2 Sat by Pulse Oximetry 06/28/20 06/28/20 06/28/20 12:00 12:15 12:30 Temperature Pulse Rate 107 H 107 H 107 H Pulse Rate [ Apical] Respiratory Rate Blood Pressure 122/76 123/74 120/73 O2 Sat by Pulse Oximetry 06/28/20 12:45 Temperature Pulse Rate 109 H Pulse Rate [ Apical] Respiratory Rate Blood Pressure 120/74 O2 Sat by Pulse Oximetry Constitutional: no acute distress, alert, other (middle aged male with normal respiratory effort at rest) Eyes: non-icteric ENT: oropharynx moist Neck: supple, no lymphadenopathy, no JVD Effort: normal Ascultation: Bilateral: clear Percussion: Bilateral: not dull Cardiovascular: regular rate and rhythm Gastrointestinal: normoactive bowel sounds, soft, non-tender, non-distended Integumentary: rash (xeroderma) Extremities: no cyanosis, no edema, pulses normal, no ischemia or petechiae Neurologic: non-focal exam, pupils equal and round, CN II-XII normal, motor strength normal and Psychiatric: mood appropriate, affect normal CBC and BMP: 06/28/20 07:12 06/28/20 07:12 ABG, PT/INR, D-dimer: ABG ABG pH 7.545 (7.320-7.450) H 06/24/20 16:17 POC ABG pCO2 34.2 mmHg (32.0-48.0) 06/24/20 16:17 POC ABG pO2 68.9 mmHg (83-108) L 06/24/20 16:17 POC ABG HCO3 28.9 06/24/20 16:17 PT/INR, D-dimer PT 22.1 Sec. (12.2-14.9) H 06/17/20 11:24 INR 1.92 (0.87-1.13) H 06/17/20 11:24 Abnormal lab findings: Abnormal Labs 06/17/20 06/17/20 06/17/20 11:24 11:24 11:24 WBC 14.7 H RBC 5.38 H Hgb Hct 49.1 H MCV MCH 27 L MCHC 29 L RDW Lymph % (Auto) 9.9 L Wilkes % (Auto) Wilkes # (Auto) Seg Neutrophils % 86.8 H Seg Neuts % (Manual) Lymphocytes % (Manual) Monocytes % (Manual) Nucleated RBC % Seg Neutrophils # 12.8 H Seg Neutrophils # Man Lymphocytes # (Manual) Monocytes # (Manual) Basophils # (Manual) PT 22.1 H INR 1.92 H APTT 38.9 H ABG pH POC ABG pO2 ABG Hemoglobin ABG Oxyhemoglobin ABG Sodium ABG Potassium ABG Glucose VBG pH Carboxyhemoglobin Sodium 149 H Potassium Chloride Carbon Dioxide BUN 84 H Creatinine 3.6 H Glucose 1394 H* POC Glucose Lactic Acid Calcium Phosphorus Magnesium AST 59 H ALT Total Creatine Kinase 5507 H CK-MB (CK-2) 7.9 H Total Protein 9.0 H Albumin 3.7 L Free T4 Arterial Blood Glucose Arterial Blood Ionized Calcium Urine WBC (Auto) Urine Creatinine Ur Total Protein 24 Hr Urine Total Protein Crossmatch 06/17/20 06/17/20 06/17/20 11:24 11:24 11:24 WBC RBC Hgb Hct MCV MCH MCHC RDW Lymph % (Auto) Wilkes % (Auto) [place] # (Auto) Seg Neutrophils % Seg Neuts % (Manual) Lymphocytes % (Manual) Monocytes % (Manual) Nucleated RBC % Seg Neutrophils # Seg Neutrophils # Man Lymphocytes # (Manual) Monocytes # (Manual) Basophils # (Manual) PT INR APTT ABG pH POC ABG pO2 ABG Hemoglobin ABG Oxyhemoglobin ABG Sodium ABG Potassium ABG Glucose VBG pH 7.123 L* Carboxyhemoglobin Sodium Potassium Chloride Carbon Dioxide BUN Creatinine Glucose POC Glucose Lactic Acid Calcium Phosphorus Magnesium 6.20 H AST ALT Total Creatine Kinase CK-MB (CK-2) Total Protein Albumin Free T4 1.65 H Arterial Blood Glucose Arterial Blood Ionized Calcium Urine WBC (Auto) Urine Creatinine Ur Total Protein 24 Hr Urine Total Protein Crossmatch 06/17/20 06/17/20 06/17/20 15:27 15:33 15:33 WBC RBC Hgb Hct MCV MCH MCHC RDW Lymph % (Auto) [place]kes % (Auto) [place] # (Auto) Seg Neutrophils % Seg Neuts % (Manual) Lymphocytes % (Manual) Monocytes % (Manual) Nucleated RBC % Seg Neutrophils # Seg Neutrophils # Man Lymphocytes # (Manual) Monocytes # (Manual) Basophils # (Manual) PT INR APTT ABG pH POC ABG pO2 ABG Hemoglobin ABG Oxyhemoglobin ABG Sodium ABG Potassium ABG Glucose VBG pH Carboxyhemoglobin Sodium Potassium Chloride Carbon Dioxide BUN Creatinine Glucose 1086 H* POC Glucose > 600 H Lactic Acid Calcium Phosphorus 9.40 H Magnesium 4.50 H AST ALT Total Creatine Kinase CK-MB (CK-2) Total Protein Albumin Free T4 Arterial Blood Glucose Arterial Blood Ionized Calcium Urine WBC (Auto) Urine Creatinine Ur Total Protein 24 Hr Urine Total Protein Crossmatch 06/17/20 06/17/20 06/17/20 16:58 18:39 18:41 WBC RBC Hgb Hct MCV MCH MCHC RDW Lymph % (Auto) [place] % (Auto) [place] # (Auto) Seg Neutrophils % Seg Neuts % (Manual) Lymphocytes % (Manual) Monocytes % (Manual) Nucleated RBC % Seg Neutrophils # Seg Neutrophils # Man Lymphocytes # (Manual) Monocytes # (Manual) Basophils # (Manual) PT INR APTT ABG pH POC ABG pO2 ABG Hemoglobin ABG Oxyhemoglobin ABG Sodium ABG Potassium ABG Glucose VBG pH Carboxyhemoglobin Sodium 155 H 154 H Potassium 3.0 L D 2.8 L* Chloride 114.0 H 117.3 H Carbon Dioxide 20 L 19 L BUN 83 H 84 H Creatinine 3.2 H 3.3 H Glucose 1046 H* 830 H* POC Glucose > 600 H Lactic Acid Calcium 7.8 L D 7.9 L Phosphorus Magnesium AST ALT Total Creatine Kinase CK-MB (CK-2) Total Protein Albumin Free T4 Arterial Blood Glucose Arterial Blood Ionized Calcium Urine WBC (Auto) Urine Creatinine Ur Total Protein 24 Hr Urine Total Protein Crossmatch 06/17/20 06/17/20 06/17/20 21:15 21:15 Unknown WBC RBC Hgb Hct MCV MCH MCHC RDW Lymph % (Auto) [place]kes % (Auto) [place] # (Auto) Seg Neutrophils % Seg Neuts % (Manual) Lymphocytes % (Manual) Monocytes % (Manual) Nucleated RBC % Seg Neutrophils # Seg Neutrophils # Man Lymphocytes # (Manual) Monocytes # (Manual) Basophils # (Manual) PT INR APTT ABG pH POC ABG pO2 ABG Hemoglobin ABG Oxyhemoglobin ABG Sodium ABG Potassium ABG Glucose VBG pH Carboxyhemoglobin Sodium 157 H Potassium 2.9 L* Chloride 118.8 H Carbon Dioxide 19 L BUN 84 H Creatinine 3.3 H Glucose 666 H* POC Glucose Lactic Acid 2.80 H* Calcium 7.8 L Phosphorus Magnesium AST ALT Total Creatine Kinase CK-MB (CK-2) Total Protein Albumin Free T4 Arterial Blood Glucose Arterial Blood Ionized Calcium Urine WBC (Auto) 7.0 H Urine Creatinine Ur Total Protein 24 Hr Urine Total Protein Crossmatch 06/18/20 06/18/20 06/18/20 00:10 00:20 03:20 WBC RBC Hgb Hct MCV MCH MCHC RDW Lymph % (Auto) [place]kes % (Auto) [place] # (Auto) Seg Neutrophils % Seg Neuts % (Manual) Lymphocytes % (Manual) Monocytes % (Manual) Nucleated RBC % Seg Neutrophils # Seg Neutrophils # Man Lymphocytes # (Manual) Monocytes # (Manual) Basophils # (Manual) PT INR APTT ABG pH POC ABG pO2 ABG Hemoglobin ABG Oxyhemoglobin ABG Sodium ABG Potassium ABG Glucose VBG pH Carboxyhemoglobin Sodium 160 H Potassium 3.0 L Chloride 118.8 H Carbon Dioxide BUN 89 H Creatinine 3.8 H Glucose 650 H* POC Glucose 291 H Lactic Acid 2.40 H* Calcium 7.8 L Phosphorus Magnesium AST ALT Total Creatine Kinase CK-MB (CK-2) Total Protein Albumin Free T4 Arterial Blood Glucose Arterial Blood Ionized Calcium Urine WBC (Auto) Urine Creatinine Ur Total Protein 24 Hr Urine Total Protein Crossmatch 06/18/20 06/18/20 06/18/20 05:19 06:27 06:27 WBC RBC Hgb Hct MCV MCH MCHC RDW Lymph % (Auto) [place]kes % (Auto) [place] # (Auto) Seg Neutrophils % Seg Neuts % (Manual) Lymphocytes % (Manual) Monocytes % (Manual) Nucleated RBC % Seg Neutrophils # Seg Neutrophils # Man Lymphocytes # (Manual) Monocytes # (Manual) Basophils # (Manual) PT INR APTT ABG pH POC ABG pO2 ABG Hemoglobin ABG Oxyhemoglobin ABG Sodium ABG Potassium ABG Glucose VBG pH Carboxyhemoglobin Sodium 167 H* Potassium 3.4 L Chloride 126.4 H Carbon Dioxide 21 L BUN 99 H Creatinine 4.5 H Glucose 291 H POC Glucose 276 H Lactic Acid 2.80 H* Calcium 8.1 L Phosphorus Magnesium AST ALT Total Creatine Kinase CK-MB (CK-2) Total Protein Albumin Free T4 Arterial Blood Glucose Arterial Blood Ionized Calcium Urine WBC (Auto) Urine Creatinine Ur Total Protein 24 Hr Urine Total Protein Crossmatch 06/18/20 06/18/20 06/18/20 06:45 08:40 08:49 WBC RBC Hgb Hct MCV MCH MCHC RDW Lymph % (Auto) [place] % (Auto) [place] # (Auto) Seg Neutrophils % Seg Neuts % (Manual) Lymphocytes % (Manual) Monocytes % (Manual) Nucleated RBC % Seg Neutrophils # Seg Neutrophils # Man Lymphocytes # (Manual) Monocytes # (Manual) Basophils # (Manual) PT INR APTT ABG pH POC ABG pO2 ABG Hemoglobin ABG Oxyhemoglobin ABG Sodium ABG Potassium ABG Glucose VBG pH Carboxyhemoglobin Sodium Potassium Chloride Carbon Dioxide BUN Creatinine Glucose POC Glucose 215 H 182 H Lactic Acid 2.20 H* Calcium Phosphorus Magnesium AST ALT Total Creatine Kinase CK-MB (CK-2) Total Protein Albumin Free T4 Arterial Blood Glucose Arterial Blood Ionized Calcium Urine WBC (Auto) Urine Creatinine Ur Total Protein 24 Hr Urine Total Protein Crossmatch 06/18/20 06/18/20 06/18/20 10:01 10:28 11:40 WBC RBC Hgb Hct MCV MCH MCHC RDW Lymph % (Auto) [place] % (Auto) [place] # (Auto) Seg Neutrophils % Seg Neuts % (Manual) Lymphocytes % (Manual) Monocytes % (Manual) Nucleated RBC % Seg Neutrophils # Seg Neutrophils # Man Lymphocytes # (Manual) Monocytes # (Manual) Basophils # (Manual) PT INR APTT ABG pH POC ABG pO2 ABG Hemoglobin ABG Oxyhemoglobin ABG Sodium ABG Potassium ABG Glucose VBG pH Carboxyhemoglobin Sodium 161 H* Potassium Chloride 125.4 H Carbon Dioxide 21 L BUN 98 H Creatinine 5.0 H Glucose 247 H POC Glucose 217 H Lactic Acid 3.20 H* Calcium 7.8 L Phosphorus Magnesium AST ALT Total Creatine Kinase CK-MB (CK-2) Total Protein Albumin Free T4 Arterial Blood Glucose Arterial Blood Ionized Calcium Urine WBC (Auto) Urine Creatinine Ur Total Protein 24 Hr Urine Total Protein Crossmatch 06/18/20 06/18/20 06/18/20 11:40 11:40 12:33 WBC RBC Hgb Hct MCV MCH MCHC RDW Lymph % (Auto) [place]kes % (Auto) [place] # (Auto) Seg Neutrophils % Seg Neuts % (Manual) Lymphocytes % (Manual) Monocytes % (Manual) Nucleated RBC % Seg Neutrophils # Seg Neutrophils # Man Lymphocytes # (Manual) Monocytes # (Manual) Basophils # (Manual) PT INR APTT ABG pH POC ABG pO2 ABG Hemoglobin ABG Oxyhemoglobin ABG Sodium ABG Potassium ABG Glucose VBG pH Carboxyhemoglobin Sodium Potassium Chloride Carbon Dioxide BUN Creatinine Glucose POC Glucose 199 H Lactic Acid 2.40 H* Calcium Phosphorus Magnesium AST ALT Total Creatine Kinase 03680 H CK-MB (CK-2) Total Protein Albumin Free T4 Arterial Blood Glucose Arterial Blood Ionized Calcium Urine WBC (Auto) Urine Creatinine Ur Total Protein 24 Hr Urine Total Protein Crossmatch 06/18/20 06/18/20 06/18/20 13:57 16:27 21:58 WBC RBC Hgb Hct MCV MCH MCHC RDW Lymph % (Auto) [place]kes % (Auto) [place] # (Auto) Seg Neutrophils % Seg Neuts % (Manual) Lymphocytes % (Manual) Monocytes % (Manual) Nucleated RBC % Seg Neutrophils # Seg Neutrophils # Man Lymphocytes # (Manual) Monocytes # (Manual) Basophils # (Manual) PT INR APTT ABG pH POC ABG pO2 ABG Hemoglobin ABG Oxyhemoglobin ABG Sodium ABG Potassium ABG Glucose VBG pH Carboxyhemoglobin Sodium Potassium Chloride Carbon Dioxide BUN Creatinine Glucose POC Glucose 198 H 185 H 281 H Lactic Acid Calcium Phosphorus Magnesium AST ALT Total Creatine Kinase CK-MB (CK-2) Total Protein Albumin Free T4 Arterial Blood Glucose Arterial Blood Ionized Calcium Urine WBC (Auto) Urine Creatinine Ur Total Protein 24 Hr Urine Total Protein Crossmatch 06/19/20 06/19/20 06/19/20 00:55 00:55 04:25 WBC RBC Hgb Hct MCV MCH MCHC RDW Lymph % (Auto) [place] % (Auto) [place] # (Auto) Seg Neutrophils % Seg Neuts % (Manual) Lymphocytes % (Manual) Monocytes % (Manual) Nucleated RBC % Seg Neutrophils # Seg Neutrophils # Man Lymphocytes # (Manual) Monocytes # (Manual) Basophils # (Manual) PT INR APTT ABG pH POC ABG pO2 ABG Hemoglobin ABG Oxyhemoglobin ABG Sodium ABG Potassium ABG Glucose VBG pH Carboxyhemoglobin Sodium 164 H* Potassium Chloride 125.8 H Carbon Dioxide 21 L BUN 100 H Creatinine 6.4 H Glucose 370 H POC Glucose 366 H Lactic Acid 2.30 H* Calcium 7.4 L Phosphorus Magnesium AST ALT Total Creatine Kinase CK-MB (CK-2) Total Protein Albumin Free T4 Arterial Blood Glucose Arterial Blood Ionized Calcium Urine WBC (Auto) Urine Creatinine Ur Total Protein 24 Hr Urine Total Protein Crossmatch 06/19/20 06/19/20 06/19/20 11:49 14:24 15:44 WBC RBC Hgb Hct MCV MCH MCHC RDW Lymph % (Auto) [place] % (Auto) [place] # (Auto) Seg Neutrophils % Seg Neuts % (Manual) Lymphocytes % (Manual) Monocytes % (Manual) Nucleated RBC % Seg Neutrophils # Seg Neutrophils # Man Lymphocytes # (Manual) Monocytes # (Manual) Basophils # (Manual) PT INR APTT ABG pH POC ABG pO2 ABG Hemoglobin ABG Oxyhemoglobin ABG Sodium ABG Potassium ABG Glucose VBG pH Carboxyhemoglobin Sodium Potassium Chloride Carbon Dioxide BUN Creatinine Glucose POC Glucose 411 H Lactic Acid 2.90 H* Calcium Phosphorus Magnesium AST ALT Total Creatine Kinase 37896 H CK-MB (CK-2) Total Protein Albumin Free T4 Arterial Blood Glucose Arterial Blood Ionized Calcium Urine WBC (Auto) Urine Creatinine Ur Total Protein 24 Hr Urine Total Protein Crossmatch 06/19/20 06/19/20 06/19/20 18:41 21:44 22:16 WBC RBC Hgb Hct MCV MCH MCHC RDW Lymph % (Auto) [place] % (Auto) [place] # (Auto) Seg Neutrophils % Seg Neuts % (Manual) Lymphocytes % (Manual) Monocytes % (Manual) Nucleated RBC % Seg Neutrophils # Seg Neutrophils # Man Lymphocytes # (Manual) Monocytes # (Manual) Basophils # (Manual) PT INR APTT ABG pH POC ABG pO2 ABG Hemoglobin ABG Oxyhemoglobin ABG Sodium ABG Potassium ABG Glucose VBG pH Carboxyhemoglobin Sodium Potassium Chloride Carbon Dioxide BUN Creatinine Glucose POC Glucose 404 H 333 H Lactic Acid 2.50 H* Calcium Phosphorus Magnesium AST ALT Total Creatine Kinase CK-MB (CK-2) Total Protein Albumin Free T4 Arterial Blood Glucose Arterial Blood Ionized Calcium Urine WBC (Auto) Urine Creatinine Ur Total Protein 24 Hr Urine Total Protein Crossmatch 06/20/20 06/20/20 06/20/20 00:12 04:37 05:08 WBC RBC Hgb Hct MCV MCH MCHC RDW Lymph % (Auto) [place] % (Auto) [place] # (Auto) Seg Neutrophils % Seg Neuts % (Manual) Lymphocytes % (Manual) Monocytes % (Manual) Nucleated RBC % Seg Neutrophils # Seg Neutrophils # Man Lymphocytes # (Manual) Monocytes # (Manual) Basophils # (Manual) PT INR APTT ABG pH POC ABG pO2 ABG Hemoglobin ABG Oxyhemoglobin ABG Sodium ABG Potassium ABG Glucose VBG pH Carboxyhemoglobin Sodium Potassium Chloride Carbon Dioxide BUN Creatinine Glucose POC Glucose 318 H Lactic Acid 2.10 H* Calcium Phosphorus Magnesium AST ALT Total Creatine Kinase 14005 H CK-MB (CK-2) Total Protein Albumin Free T4 Arterial Blood Glucose Arterial Blood Ionized Calcium Urine WBC (Auto) Urine Creatinine Ur Total Protein 24 Hr Urine Total Protein Crossmatch 06/20/20 06/20/20 06/20/20 10:19 14:47 14:47 WBC 15.1 H RBC Hgb 10.2 L Hct 32.0 L MCV MCH 27 L MCHC RDW Lymph % (Auto) [place]kes % (Auto) [place] # (Auto) Seg Neutrophils % Seg Neuts % (Manual) 79.0 H Lymphocytes % (Manual) 12.0 L Monocytes % (Manual) Nucleated RBC % Seg Neutrophils # Seg Neutrophils # Man 11.9 H Lymphocytes # (Manual) Monocytes # (Manual) 1.1 H Basophils # (Manual) 0.2 H PT INR APTT ABG pH POC ABG pO2 ABG Hemoglobin ABG Oxyhemoglobin ABG Sodium ABG Potassium ABG Glucose VBG pH Carboxyhemoglobin Sodium 156 H Potassium 5.9 H D Chloride 118.3 H Carbon Dioxide 20 L BUN 159 H Creatinine 9.4 H Glucose 283 H POC Glucose 220 H Lactic Acid Calcium 7.7 L Phosphorus Magnesium AST 149 H ALT 89 H Total Creatine Kinase CK-MB (CK-2) Total Protein 5.9 L D Albumin 2.3 L Free T4 Arterial Blood Glucose Arterial Blood Ionized Calcium Urine WBC (Auto) Urine Creatinine Ur Total Protein 24 Hr Urine Total Protein Crossmatch 06/20/20 06/20/20 06/20/20 17:02 19:43 22:01 WBC RBC Hgb Hct MCV MCH MCHC RDW Lymph % (Auto) [place] % (Auto) [place] # (Auto) Seg Neutrophils % Seg Neuts % (Manual) Lymphocytes % (Manual) Monocytes % (Manual) Nucleated RBC % Seg Neutrophils # Seg Neutrophils # Man Lymphocytes # (Manual) Monocytes # (Manual) Basophils # (Manual) PT INR APTT ABG pH POC ABG pO2 ABG Hemoglobin ABG Oxyhemoglobin ABG Sodium ABG Potassium ABG Glucose VBG pH Carboxyhemoglobin Sodium Potassium Chloride Carbon Dioxide BUN Creatinine Glucose POC Glucose 248 H 268 H Lactic Acid Calcium Phosphorus 6.70 H Magnesium AST ALT Total Creatine Kinase CK-MB (CK-2) Total Protein Albumin Free T4 Arterial Blood Glucose Arterial Blood Ionized Calcium Urine WBC (Auto) Urine Creatinine Ur Total Protein 24 Hr Urine Total Protein Crossmatch 06/21/20 06/21/20 06/21/20 02:22 04:28 09:45 WBC RBC Hgb Hct MCV MCH MCHC RDW Lymph % (Auto) [place] % (Auto) [place] # (Auto) Seg Neutrophils % Seg Neuts % (Manual) Lymphocytes % (Manual) Monocytes % (Manual) Nucleated RBC % Seg Neutrophils # Seg Neutrophils # Man Lymphocytes # (Manual) Monocytes # (Manual) Basophils # (Manual) PT INR APTT ABG pH POC ABG pO2 ABG Hemoglobin ABG Oxyhemoglobin ABG Sodium ABG Potassium ABG Glucose VBG pH Carboxyhemoglobin Sodium Potassium Chloride Carbon Dioxide BUN Creatinine Glucose POC Glucose 248 H 237 H 234 H Lactic Acid Calcium Phosphorus Magnesium AST ALT Total Creatine Kinase CK-MB (CK-2) Total Protein Albumin Free T4 Arterial Blood Glucose Arterial Blood Ionized Calcium Urine WBC (Auto) Urine Creatinine Ur Total Protein 24 Hr Urine Total Protein Crossmatch 06/21/20 06/21/20 06/21/20 15:29 15:29 15:29 WBC 11.8 H RBC 3.51 L Hgb 9.3 L Hct 29.8 L MCV MCH 27 L MCHC 31 L RDW Lymph % (Auto) [place] % (Auto) [place] # (Auto) Seg Neutrophils % Seg Neuts % (Manual) 81.0 H Lymphocytes % (Manual) 6.0 L Monocytes % (Manual) 10.0 H Nucleated RBC % Seg Neutrophils # Seg Neutrophils # Man 9.6 H Lymphocytes # (Manual) 0.7 L Monocytes # (Manual) 1.2 H Basophils # (Manual) PT INR APTT ABG pH POC ABG pO2 ABG Hemoglobin ABG Oxyhemoglobin ABG Sodium ABG Potassium ABG Glucose VBG pH Carboxyhemoglobin Sodium 152 H Potassium 6.0 H Chloride 115.0 H Carbon Dioxide 18 L BUN 161 H Creatinine 9.7 H Glucose 310 H POC Glucose Lactic Acid Calcium 7.9 L Phosphorus Magnesium AST ALT Total Creatine Kinase 44317 H CK-MB (CK-2) Total Protein Albumin Free T4 Arterial Blood Glucose Arterial Blood Ionized Calcium Urine WBC (Auto) Urine Creatinine Ur Total Protein 24 Hr Urine Total Protein Crossmatch 06/21/20 06/22/20 06/22/20 18:07 02:33 05:51 WBC 11.3 H RBC 3.18 L Hgb 8.6 L Hct 26.7 L MCV MCH 27 L MCHC RDW Lymph % (Auto) 13.2 L [place]kes % (Auto) 10.8 H [place] # (Auto) 1.2 H Seg Neutrophils % 75.6 H Seg Neuts % (Manual) Lymphocytes % (Manual) Monocytes % (Manual) Nucleated RBC % Seg Neutrophils # 8.5 H Seg Neutrophils # Man Lymphocytes # (Manual) Monocytes # (Manual) Basophils # (Manual) PT INR APTT ABG pH POC ABG pO2 ABG Hemoglobin ABG Oxyhemoglobin ABG Sodium ABG Potassium ABG Glucose VBG pH Carboxyhemoglobin Sodium Potassium Chloride Carbon Dioxide BUN Creatinine Glucose POC Glucose 320 H 302 H Lactic Acid Calcium Phosphorus Magnesium AST ALT Total Creatine Kinase CK-MB (CK-2) Total Protein Albumin Free T4 Arterial Blood Glucose Arterial Blood Ionized Calcium Urine WBC (Auto) Urine Creatinine Ur Total Protein 24 Hr Urine Total Protein Crossmatch 06/22/20 06/22/20 06/22/20 05:51 10:57 11:47 WBC RBC Hgb Hct MCV MCH MCHC RDW Lymph % (Auto) [place] % (Auto) [place] # (Auto) Seg Neutrophils % Seg Neuts % (Manual) Lymphocytes % (Manual) Monocytes % (Manual) Nucleated RBC % Seg Neutrophils # Seg Neutrophils # Man Lymphocytes # (Manual) Monocytes # (Manual) Basophils # (Manual) PT INR APTT ABG pH POC ABG pO2 ABG Hemoglobin ABG Oxyhemoglobin ABG Sodium ABG Potassium ABG Glucose VBG pH Carboxyhemoglobin Sodium Potassium Chloride Carbon Dioxide BUN 102 H Creatinine 7.1 H Glucose 357 H POC Glucose 438 H Lactic Acid Calcium 8.0 L Phosphorus Magnesium AST ALT Total Creatine Kinase 8530 H CK-MB (CK-2) Total Protein Albumin Free T4 Arterial Blood Glucose Arterial Blood Ionized Calcium Urine WBC (Auto) Urine Creatinine Ur Total Protein 24 Hr Urine Total Protein Crossmatch 06/23/20 06/23/20 06/23/20 02:12 04:38 05:13 WBC RBC 2.93 L Hgb 8.0 L Hct 24.8 L MCV MCH 27 L MCHC RDW Lymph % (Auto) 13.0 L [place] % (Auto) 14.1 H [place] # (Auto) 1.5 H Seg Neutrophils % 72.4 H Seg Neuts % (Manual) Lymphocytes % (Manual) Monocytes % (Manual) Nucleated RBC % Seg Neutrophils # Seg Neutrophils # Man Lymphocytes # (Manual) Monocytes # (Manual) Basophils # (Manual) PT INR APTT ABG pH POC ABG pO2 ABG Hemoglobin ABG Oxyhemoglobin ABG Sodium ABG Potassium ABG Glucose VBG pH Carboxyhemoglobin Sodium Potassium Chloride Carbon Dioxide BUN Creatinine Glucose POC Glucose 417 H 390 H Lactic Acid Calcium Phosphorus Magnesium AST ALT Total Creatine Kinase CK-MB (CK-2) Total Protein Albumin Free T4 Arterial Blood Glucose Arterial Blood Ionized Calcium Urine WBC (Auto) Urine Creatinine Ur Total Protein 24 Hr Urine Total Protein Crossmatch 06/23/20 06/23/20 06/23/20 05:13 05:13 10:06 WBC RBC Hgb Hct MCV MCH MCHC RDW Lymph % (Auto) [place] % (Auto) [place] # (Auto) Seg Neutrophils % Seg Neuts % (Manual) Lymphocytes % (Manual) Monocytes % (Manual) Nucleated RBC % Seg Neutrophils # Seg Neutrophils # Man Lymphocytes # (Manual) Monocytes # (Manual) Basophils # (Manual) PT INR APTT ABG pH POC ABG pO2 ABG Hemoglobin ABG Oxyhemoglobin ABG Sodium ABG Potassium ABG Glucose VBG pH Carboxyhemoglobin Sodium Potassium Chloride Carbon Dioxide BUN 90 H Creatinine 6.2 H Glucose 424 H POC Glucose 248 H Lactic Acid Calcium 7.8 L Phosphorus Magnesium AST ALT Total Creatine Kinase 8540 H CK-MB (CK-2) Total Protein Albumin Free T4 Arterial Blood Glucose Arterial Blood Ionized Calcium Urine WBC (Auto) Urine Creatinine Ur Total Protein 24 Hr Urine Total Protein Crossmatch 06/23/20 06/23/20 06/23/20 11:44 15:51 20:30 WBC RBC Hgb Hct MCV MCH MCHC RDW Lymph % (Auto) [place] % (Auto) [place] # (Auto) Seg Neutrophils % Seg Neuts % (Manual) Lymphocytes % (Manual) Monocytes % (Manual) Nucleated RBC % Seg Neutrophils # Seg Neutrophils # Man Lymphocytes # (Manual) Monocytes # (Manual) Basophils # (Manual) PT INR APTT ABG pH POC ABG pO2 ABG Hemoglobin ABG Oxyhemoglobin ABG Sodium ABG Potassium ABG Glucose VBG pH Carboxyhemoglobin Sodium Potassium Chloride Carbon Dioxide BUN Creatinine Glucose POC Glucose 243 H 283 H 275 H Lactic Acid Calcium Phosphorus Magnesium AST ALT Total Creatine Kinase CK-MB (CK-2) Total Protein Albumin Free T4 Arterial Blood Glucose Arterial Blood Ionized Calcium Urine WBC (Auto) Urine Creatinine Ur Total Protein 24 Hr Urine Total Protein Crossmatch 06/24/20 06/24/20 06/24/20 04:56 06:35 06:35 WBC 12.1 H RBC 2.78 L Hgb 7.5 L Hct 23.2 L MCV MCH 27 L MCHC RDW Lymph % (Auto) [place] % (Auto) [place] # (Auto) Seg Neutrophils % Seg Neuts % (Manual) 81.0 H Lymphocytes % (Manual) Monocytes % (Manual) Nucleated RBC % Seg Neutrophils # Seg Neutrophils # Man 9.8 H Lymphocytes # (Manual) Monocytes # (Manual) Basophils # (Manual) PT INR APTT ABG pH POC ABG pO2 ABG Hemoglobin ABG Oxyhemoglobin ABG Sodium ABG Potassium ABG Glucose VBG pH Carboxyhemoglobin Sodium Potassium Chloride Carbon Dioxide BUN 102 H Creatinine 7.1 H Glucose 324 H POC Glucose 269 H Lactic Acid Calcium Phosphorus Magnesium AST ALT Total Creatine Kinase 6347 H CK-MB (CK-2) Total Protein Albumin Free T4 Arterial Blood Glucose Arterial Blood Ionized Calcium Urine WBC (Auto) Urine Creatinine Ur Total Protein 24 Hr Urine Total Protein Crossmatch 06/24/20 06/24/20 06/24/20 10:22 12:11 16:17 WBC RBC Hgb Hct MCV MCH MCHC RDW Lymph % (Auto) [place] % (Auto) [place] # (Auto) Seg Neutrophils % Seg Neuts % (Manual) Lymphocytes % (Manual) Monocytes % (Manual) Nucleated RBC % Seg Neutrophils # Seg Neutrophils # Man Lymphocytes # (Manual) Monocytes # (Manual) Basophils # (Manual) PT INR APTT ABG pH 7.545 H POC ABG pO2 68.9 L ABG Hemoglobin 6.8 L ABG Oxyhemoglobin 92.4 L ABG Sodium 135.1 L ABG Potassium 3.0 L ABG Glucose 199 H VBG pH Carboxyhemoglobin 1.7 H Sodium Potassium Chloride Carbon Dioxide BUN Creatinine Glucose POC Glucose 331 H 303 H Lactic Acid Calcium Phosphorus Magnesium AST ALT Total Creatine Kinase CK-MB (CK-2) Total Protein Albumin Free T4 Arterial Blood Glucose 199 H Arterial Blood Ionized Calcium 4.3 L Urine WBC (Auto) Urine Creatinine Ur Total Protein 24 Hr Urine Total Protein Crossmatch 06/24/20 06/25/20 06/25/20 16:22 00:46 04:44 WBC 12.0 H RBC 2.56 L Hgb 6.9 L Hct 21.2 L MCV 83 L MCH 27 L MCHC RDW Lymph % (Auto) [place] % (Auto) 16.3 H [place] # (Auto) 2.0 H Seg Neutrophils % Seg Neuts % (Manual) Lymphocytes % (Manual) Monocytes % (Manual) Nucleated RBC % Seg Neutrophils # 8.1 H Seg Neutrophils # Man Lymphocytes # (Manual) Monocytes # (Manual) Basophils # (Manual) PT INR APTT ABG pH POC ABG pO2 ABG Hemoglobin ABG Oxyhemoglobin ABG Sodium ABG Potassium ABG Glucose VBG pH Carboxyhemoglobin Sodium Potassium Chloride Carbon Dioxide BUN Creatinine Glucose POC Glucose 173 H 391 H Lactic Acid Calcium Phosphorus Magnesium AST ALT Total Creatine Kinase CK-MB (CK-2) Total Protein Albumin Free T4 Arterial Blood Glucose Arterial Blood Ionized Calcium Urine WBC (Auto) Urine Creatinine Ur Total Protein 24 Hr Urine Total Protein Crossmatch 06/25/20 06/25/20 06/25/20 04:44 04:44 06:20 WBC RBC Hgb Hct MCV MCH MCHC RDW Lymph % (Auto) [place] % (Auto) [place] # (Auto) Seg Neutrophils % Seg Neuts % (Manual) Lymphocytes % (Manual) Monocytes % (Manual) Nucleated RBC % Seg Neutrophils # Seg Neutrophils # Man Lymphocytes # (Manual) Monocytes # (Manual) Basophils # (Manual) PT INR APTT ABG pH POC ABG pO2 ABG Hemoglobin ABG Oxyhemoglobin ABG Sodium ABG Potassium ABG Glucose VBG pH Carboxyhemoglobin Sodium Potassium 3.4 L Chloride Carbon Dioxide BUN 63 H Creatinine 4.7 H Glucose 300 H POC Glucose 240 H Lactic Acid Calcium 8.2 L Phosphorus Magnesium AST ALT Total Creatine Kinase 3017 H CK-MB (CK-2) Total Protein Albumin Free T4 Arterial Blood Glucose Arterial Blood Ionized Calcium Urine WBC (Auto) Urine Creatinine Ur Total Protein 24 Hr Urine Total Protein Crossmatch 06/25/20 06/25/20 06/25/20 08:20 16:57 16:58 WBC RBC Hgb Hct MCV MCH MCHC RDW Lymph % (Auto) [place] % (Auto) [place] # (Auto) Seg Neutrophils % Seg Neuts % (Manual) Lymphocytes % (Manual) Monocytes % (Manual) Nucleated RBC % Seg Neutrophils # Seg Neutrophils # Man Lymphocytes # (Manual) Monocytes # (Manual) Basophils # (Manual) PT INR APTT ABG pH POC ABG pO2 ABG Hemoglobin ABG Oxyhemoglobin ABG Sodium ABG Potassium ABG Glucose VBG pH Carboxyhemoglobin Sodium Potassium Chloride Carbon Dioxide BUN Creatinine Glucose POC Glucose 207 H 284 H Lactic Acid Calcium Phosphorus Magnesium AST ALT Total Creatine Kinase CK-MB (CK-2) Total Protein Albumin Free T4 Arterial Blood Glucose Arterial Blood Ionized Calcium Urine WBC (Auto) Urine Creatinine 73.8 H Ur Total Protein 24 Hr 644.00 H Urine Total Protein 46 H Crossmatch 06/25/20 06/26/20 06/26/20 21:20 04:06 07:18 WBC 14.0 H RBC 2.52 L Hgb 6.8 L Hct 21.0 L MCV 83 L MCH 27 L MCHC RDW Lymph % (Auto) [place] % (Auto) [place] # (Auto) Seg Neutrophils % Seg Neuts % (Manual) 77.0 H Lymphocytes % (Manual) 12.0 L Monocytes % (Manual) Nucleated RBC % Seg Neutrophils # Seg Neutrophils # Man 10.8 H Lymphocytes # (Manual) Monocytes # (Manual) 1.0 H Basophils # (Manual) PT INR APTT ABG pH POC ABG pO2 ABG Hemoglobin ABG Oxyhemoglobin ABG Sodium ABG Potassium ABG Glucose VBG pH Carboxyhemoglobin Sodium Potassium Chloride Carbon Dioxide BUN Creatinine Glucose POC Glucose 259 H 204 H Lactic Acid Calcium Phosphorus Magnesium AST ALT Total Creatine Kinase CK-MB (CK-2) Total Protein Albumin Free T4 Arterial Blood Glucose Arterial Blood Ionized Calcium Urine WBC (Auto) Urine Creatinine Ur Total Protein 24 Hr Urine Total Protein Crossmatch 06/26/20 06/26/20 06/26/20 07:18 07:18 09:18 WBC RBC Hgb Hct MCV MCH MCHC RDW Lymph % (Auto) [place] % (Auto) [place] # (Auto) Seg Neutrophils % Seg Neuts % (Manual) Lymphocytes % (Manual) Monocytes % (Manual) Nucleated RBC % Seg Neutrophils # Seg Neutrophils # Man Lymphocytes # (Manual) Monocytes # (Manual) Basophils # (Manual) PT INR APTT ABG pH POC ABG pO2 ABG Hemoglobin ABG Oxyhemoglobin ABG Sodium ABG Potassium ABG Glucose VBG pH Carboxyhemoglobin Sodium Potassium 3.0 L Chloride Carbon Dioxide BUN 46 H Creatinine 3.7 H Glucose 234 H POC Glucose 235 H Lactic Acid Calcium 8.2 L Phosphorus Magnesium AST ALT Total Creatine Kinase 1353 H CK-MB (CK-2) Total Protein Albumin Free T4 Arterial Blood Glucose Arterial Blood Ionized Calcium Urine WBC (Auto) Urine Creatinine Ur Total Protein 24 Hr Urine Total Protein Crossmatch 06/26/20 06/26/20 06/26/20 13:18 16:48 21:57 WBC RBC Hgb Hct MCV MCH MCHC RDW Lymph % (Auto) [place] % (Auto) [place] # (Auto) Seg Neutrophils % Seg Neuts % (Manual) Lymphocytes % (Manual) Monocytes % (Manual) Nucleated RBC % Seg Neutrophils # Seg Neutrophils # Man Lymphocytes # (Manual) Monocytes # (Manual) Basophils # (Manual) PT INR APTT ABG pH POC ABG pO2 ABG Hemoglobin ABG Oxyhemoglobin ABG Sodium ABG Potassium ABG Glucose VBG pH Carboxyhemoglobin Sodium Potassium Chloride Carbon Dioxide BUN Creatinine Glucose POC Glucose 175 H 205 H 201 H Lactic Acid Calcium Phosphorus Magnesium AST ALT Total Creatine Kinase CK-MB (CK-2) Total Protein Albumin Free T4 Arterial Blood Glucose Arterial Blood Ionized Calcium Urine WBC (Auto) Urine Creatinine Ur Total Protein 24 Hr Urine Total Protein Crossmatch 06/27/20 06/27/20 06/27/20 03:51 07:10 07:10 WBC 13.3 H RBC 2.30 L Hgb 6.3 L Hct 19.4 L* MCV MCH 27 L MCHC RDW Lymph % (Auto) [place] % (Auto) [place] # (Auto) Seg Neutrophils % Seg Neuts % (Manual) 77.0 H Lymphocytes % (Manual) 13.0 L Monocytes % (Manual) Nucleated RBC % 1.0 H Seg Neutrophils # Seg Neutrophils # Man 10.2 H Lymphocytes # (Manual) Monocytes # (Manual) 0.9 H Basophils # (Manual) PT INR APTT ABG pH POC ABG pO2 ABG Hemoglobin ABG Oxyhemoglobin ABG Sodium ABG Potassium ABG Glucose VBG pH Carboxyhemoglobin Sodium Potassium 3.1 L Chloride Carbon Dioxide 31 H BUN 36 H Creatinine 3.2 H Glucose 176 H POC Glucose 208 H Lactic Acid Calcium Phosphorus Magnesium AST ALT Total Creatine Kinase CK-MB (CK-2) Total Protein Albumin Free T4 Arterial Blood Glucose Arterial Blood Ionized Calcium Urine WBC (Auto) Urine Creatinine Ur Total Protein 24 Hr Urine Total Protein Crossmatch 06/27/20 06/27/20 06/27/20 07:10 07:43 09:41 WBC RBC Hgb Hct MCV MCH MCHC RDW Lymph % (Auto) [place] % (Auto) [place] # (Auto) Seg Neutrophils % Seg Neuts % (Manual) Lymphocytes % (Manual) Monocytes % (Manual) Nucleated RBC % Seg Neutrophils # Seg Neutrophils # Man Lymphocytes # (Manual) Monocytes # (Manual) Basophils # (Manual) PT INR APTT ABG pH POC ABG pO2 ABG Hemoglobin ABG Oxyhemoglobin ABG Sodium ABG Potassium ABG Glucose VBG pH Carboxyhemoglobin Sodium Potassium Chloride Carbon Dioxide BUN Creatinine Glucose POC Glucose 155 H 328 H Lactic Acid Calcium Phosphorus Magnesium AST ALT Total Creatine Kinase 801 H CK-MB (CK-2) Total Protein Albumin Free T4 Arterial Blood Glucose Arterial Blood Ionized Calcium Urine WBC (Auto) Urine Creatinine Ur Total Protein 24 Hr Urine Total Protein Crossmatch 06/27/20 06/27/20 06/27/20 10:54 16:01 20:13 WBC RBC Hgb Hct MCV MCH MCHC RDW Lymph % (Auto) [place] % (Auto) [place] # (Auto) Seg Neutrophils % Seg Neuts % (Manual) Lymphocytes % (Manual) Monocytes % (Manual) Nucleated RBC % Seg Neutrophils # Seg Neutrophils # Man Lymphocytes # (Manual) Monocytes # (Manual) Basophils # (Manual) PT INR APTT ABG pH POC ABG pO2 ABG Hemoglobin ABG Oxyhemoglobin ABG Sodium ABG Potassium ABG Glucose VBG pH Carboxyhemoglobin Sodium Potassium Chloride Carbon Dioxide BUN Creatinine Glucose POC Glucose 394 H Lactic Acid Calcium Phosphorus Magnesium AST ALT Total Creatine Kinase 580 H CK-MB (CK-2) Total Protein Albumin Free T4 Arterial Blood Glucose Arterial Blood Ionized Calcium Urine WBC (Auto) Urine Creatinine Ur Total Protein 24 Hr Urine Total Protein Crossmatch See Detail 06/27/20 06/28/20 06/28/20 21:49 04:17 07:12 WBC 13.4 H RBC 2.49 L Hgb 6.6 L Hct 20.5 L MCV 83 L MCH 27 L MCHC RDW 15.7 H Lymph % (Auto) [place] % (Auto) [place] # (Auto) Seg Neutrophils % Seg Neuts % (Manual) 71.0 H Lymphocytes % (Manual) Monocytes % (Manual) Nucleated RBC % Seg Neutrophils # Seg Neutrophils # Man 9.5 H Lymphocytes # (Manual) Monocytes # (Manual) Basophils # (Manual) PT INR APTT ABG pH POC ABG pO2 ABG Hemoglobin ABG Oxyhemoglobin ABG Sodium ABG Potassium ABG Glucose VBG pH Carboxyhemoglobin Sodium Potassium Chloride Carbon Dioxide BUN Creatinine Glucose POC Glucose 227 H 201 H Lactic Acid Calcium Phosphorus Magnesium AST ALT Total Creatine Kinase CK-MB (CK-2) Total Protein Albumin Free T4 Arterial Blood Glucose Arterial Blood Ionized Calcium Urine WBC (Auto) Urine Creatinine Ur Total Protein 24 Hr Urine Total Protein Crossmatch 06/28/20 06/28/20 07:12 07:12 WBC RBC Hgb Hct MCV MCH MCHC RDW Lymph % (Auto) [place] % (Auto) [place] # (Auto) Seg Neutrophils % Seg Neuts % (Manual) Lymphocytes % (Manual) Monocytes % (Manual) Nucleated RBC % Seg Neutrophils # Seg Neutrophils # Man Lymphocytes # (Manual) Monocytes # (Manual) Basophils # (Manual) PT INR APTT ABG pH POC ABG pO2 ABG Hemoglobin ABG Oxyhemoglobin ABG Sodium ABG Potassium ABG Glucose VBG pH Carboxyhemoglobin Sodium Potassium 3.1 L Chloride Carbon Dioxide 33 H BUN 43 H Creatinine 3.4 H Glucose 261 H POC Glucose Lactic Acid Calcium Phosphorus Magnesium AST ALT Total Creatine Kinase 418 H CK-MB (CK-2) Total Protein Albumin Free T4 Arterial Blood Glucose Arterial Blood Ionized Calcium Urine WBC (Auto) Urine Creatinine Ur Total Protein 24 Hr Urine Total Protein Crossmatch Chest x-ray: report reviewed, image reviewed Additional Studies: CHEST 2 VIEWS 06/28/19 INDICATION / CLINICAL INFORMATION: sepsis, possible aspiration.. COMPARISON: 06/24/20 FINDINGS: SUPPORT DEVICES: Right central line is unchanged. HEART / MEDIASTINUM: No significant abnormality. LUNGS / PLEURA: Patchy density in the right mid to upper lung is unchanged. No pneumothorax. ADDITIONAL FINDINGS: No significant additional findings. IMPRESSION: 1. No significant change. Allied health notes reviewed: nursing
[2020-06-29 00:24] LABS: Basophils # (Auto) 0.1 K/mm3 (0.0-0.1); Basophils % (Auto) 0.4 % (0.0-1.8); Eosinophils # (Auto) 0.1 K/mm3 (0.0-0.4); Eosinophils % (Auto) 0.6 % (0.0-4.3); Hemoglobin 6.6 gm/dl (11.8-15.2); Lymphocytes # (Auto) 2.5 K/mm3 (1.2-5.4); Lymphocytes % (Auto) 20.1 % (13.4-35.0); Mean Corpuscular HGB Conc 33 % (32-34); Mean Corpuscular Volume 83 fl (84-94); Monocytes # (Auto) 1.2 K/mm3 (0.0-0.8); Monocytes % (Auto) 9.7 % (0.0-7.3); Platelet Count 273 K/mm3 (140-440); Red Blood Count 2.41 M/mm3 (3.65-5.03)
--- NOTE | 2020-06-29 04:28 | Progress Note ---
Assessment and Plan - Patient Problems (1) Sepsis Current Visit: Yes Status: Acute Plan to address problem: Sepsis resolved (2) Toxic metabolic encephalopathy Current Visit: Yes Status: Acute Plan to address problem: Resolved, continue current care, (3) IDDM Current Visit: Yes Status: Acute Qualifiers: Diabetes mellitus complication detail: with coma Plan to address problem: DKA resolved, sliding-scale insulin therapy, Accu-Chek, hypoglycemia protocol Insulin changed to Humulin 70/30 20 units twice a day for better control and compliance (4) Rhabdomyolysis Current Visit: Yes Status: Acute Qualifiers: Encounter type: initial encounter Plan to address problem: IV fluid resuscitation therapy, monitor urine output every shift, CK level improving today. Repeat CK in a.m. Creatinine kinase every 12 hours reordered Improved (5) End stage renal disease Current Visit: Yes Status: Acute Plan to address problem: Hemodialysis catheter placed as per vascular surgery team, dialysis as per renal team. Avoid nephrotoxic agents. Nephrology to decide about whether the patient needs outpatient hemodialysis. Patient has a hemodialysis chair and patient to get hemodialysis as outpatient Covid test ordered so that he can be discharged home and attend hemodialysis center (6) DVT prophylaxis Current Visit: Yes Status: Acute Plan to address problem: SCD to bilateral lower extremities while in bed, prophylactic anticoagulation Discharge planning issues patient may be discharged tomorrow Was waiting for hemodialysis chair COVID-19 positive test (U07.1, COVID-19) with Acute Respiratory Distress Syndrome (ARDS) (J80, ARDS) (If respiratory failure or sepsis present, add as separate assessment) Covid test to be done before his discharge Subjective Date of service: 06/28/20 Principal diagnosis: DKA; Ac encephalopathy; Severe sepsis; Rhabdomyolysis; YUNI. Interval history: History Interval history: 44 YO Male HD #5 with Sepsis, resolved DKA, improved Toxic Metabolic Encephalopathy, ESRD requiring Hemodialysis, Rhabdomyolysis, Hypothermia. Patient status improved today. Patient is alert and oriented x3 and resting comfortably in bed. Patient denies pain. Patient states that he is feeling better today. Patient encouraged to increase oral free water intake as tolerated. No reported nursing events. Patient denies pain. Symptomatically better Patient undergoing hemodialysis Creatinine around 3.5 Good urine output Covid test ordered today Has hemodialysis chair arranged from tomorrow Possible discharge tomorrow after the Covid test Objective - Constitutional Vitals: Vital Signs - 12hr 06/28/20 06/28/20 06/28/20 19:34 22:00 23:06 Temperature 98.0 F 98.0 F Pulse Rate 110 H 118 H Pulse Rate [ 102 H Apical] Respiratory 18 18 18 Rate Blood Pressure 109/66 92/53 O2 Sat by Pulse 93 98 98 Oximetry General appearance: Present: no acute distress, well-nourished - EENT Eyes: PERRL, EOM intact ENT: hearing intact, clear oral mucosa Ears: bilateral: normal - Neck Neck: supple, normal ROM - Respiratory Respiratory effort: normal Respiratory: bilateral: CTA - Breasts Breasts: normal - Cardiovascular Heart rate: 78 Rhythm: regular Heart Sounds: Present: S1 & S2. Absent: gallop, rub Extremities: pulses intact, No edema, normal color, Full ROM - Gastrointestinal General gastrointestinal: Present: soft, non-tender, non-distended, normal bowel sounds - Genitourinary Male genitourinary: normal - Integumentary Integumentary: clear, warm, dry - Musculoskeletal Musculoskeletal: 1, strength equal bilaterally - Neurologic Neurologic: moves all extremities - Psychiatric Psychiatric: memory intact, appropriate mood/affect, intact judgment & insight - Labs CBC & Chem 7: 06/28/20 23:22 06/28/20 07:12 Labs: Abnormal lab results 06/28/20 06/28/20 06/28/20 Range/Units 04:17 07:12 07:12 WBC 13.4 H (4.5-11.0) K/mm3 RBC 2.49 L (3.65-5.03) M/mm3 Hgb 6.6 L (11.8-15.2) gm/dl Hct 20.5 L (35.5-45.6) % MCV 83 L (84-94) fl MCH 27 L (28-32) pg RDW 15.7 H (13.2-15.2) % [place] % (Auto) (0.0-7.3) % [place] # (Auto) (0.0-0.8) K/mm3 Seg Neuts % (Manual) 71.0 H (40.0-70.0) % Seg Neutrophils # (1.8-7.7) K/mm3 Seg Neutrophils # Man 9.5 H (1.8-7.7) K/mm3 Potassium 3.1 L (3.6-5.0) mmol/L Carbon Dioxide 33 H (22-30) mmol/L BUN 43 H (9-20) mg/dL Creatinine 3.4 H (0.8-1.3) mg/dL Glucose 261 H (75-100) mg/dL POC Glucose 201 H (70-105) mg/dL Total Creatine Kinase (55-170) units/L 06/28/20 06/28/20 06/28/20 Range/Units 07:12 16:12 20:48 WBC (4.5-11.0) K/mm3 RBC (3.65-5.03) M/mm3 Hgb (11.8-15.2) gm/dl Hct (35.5-45.6) % MCV (84-94) fl MCH (28-32) pg RDW (13.2-15.2) % [place] % (Auto) (0.0-7.3) % [place] # (Auto) (0.0-0.8) K/mm3 Seg Neuts % (Manual) (40.0-70.0) % Seg Neutrophils # (1.8-7.7) K/mm3 Seg Neutrophils # Man (1.8-7.7) K/mm3 Potassium (3.6-5.0) mmol/L Carbon Dioxide (22-30) mmol/L BUN (9-20) mg/dL Creatinine (0.8-1.3) mg/dL Glucose (75-100) mg/dL POC Glucose 143 H 300 H (70-105) mg/dL Total Creatine Kinase 418 H (55-170) units/L 06/28/20 06/28/20 Range/Units 23:22 23:22 WBC 12.7 H (4.5-11.0) K/mm3 RBC 2.41 L (3.65-5.03) M/mm3 Hgb 6.6 L (11.8-15.2) gm/dl Hct 20.0 L (35.5-45.6) % MCV 83 L (84-94) fl MCH 27 L (28-32) pg RDW 16.0 H (13.2-15.2) % [place] % (Auto) 9.7 H (0.0-7.3) % [place] # (Auto) 1.2 H (0.0-0.8) K/mm3 Seg Neuts % (Manual) (40.0-70.0) % Seg Neutrophils # 8.8 H (1.8-7.7) K/mm3 Seg Neutrophils # Man (1.8-7.7) K/mm3 Potassium (3.6-5.0) mmol/L Carbon Dioxide (22-30) mmol/L BUN (9-20) mg/dL Creatinine (0.8-1.3) mg/dL Glucose (75-100) mg/dL POC Glucose (70-105) mg/dL Total Creatine Kinase 341 H (55-170) units/L HEART Score - HEART Score Troponin: Troponin T < 0.010 ng/mL (0.00-0.029) 06/17/20 11:24
[2020-06-29] MEDS: INSULIN LISPRO 100 UNIT/ML VIAL 3 mL SUB-Q SCH ×5 (06:15→22:39)
[2020-06-29 08:47] LABS: Basophils % (Auto) 0.3 % (0.0-1.8); Eosinophils # (Auto) 0.1 K/mm3 (0.0-0.4); Eosinophils % (Auto) 0.6 % (0.0-4.3); Hemoglobin 6.4 gm/dl (11.8-15.2); Lymphocytes # (Auto) 2.2 K/mm3 (1.2-5.4); Lymphocytes % (Auto) 18.4 % (13.4-35.0); Mean Corpuscular HGB Conc 33 % (32-34); Mean Corpuscular Volume 82 fl (84-94); Monocytes # (Auto) 1.4 K/mm3 (0.0-0.8); Monocytes % (Auto) 11.4 % (0.0-7.3); Platelet Count 272 K/mm3 (140-440); Red Blood Count 2.39 M/mm3 (3.65-5.03); Red Cell Distribution Width 15.9 % (13.2-15.2)
[2020-06-29 09:07] LABS: Calcium 8.4 mg/dL (8.4-10.2)
[2020-06-29 09:59] LABS: Hematocrit 19.7 % (35.5-45.6)
[2020-06-29] MEDS: INSULIN NPH/REGULAR 70/30 INJ SUB-Q SCH ×2 (10:07→17:23)
[2020-06-29] MEDS: SODIUM BICARBONATE 650 MG TAB PO SCH ×2 (10:08→22:39)
[2020-06-29] MEDS: FAMOTIDINE 20 MG TAB PO SCH (10:08)
[2020-06-29] MEDS: HEPARIN 5,000 UNIT/1 ML VIAL SUB-Q SCH ×2 (10:10→22:39)
--- NOTE | 2020-06-29 10:17 | Discharge Summary ---
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 ER was informed that patient was found down by his neighbors outside his home. Upon presentation to the emergency department he was noted to be hypothermic with temperature 96 F, hypotensive, septic and encephalopathic. He was subsequently admitted with diagnosis of sepsis, toxic metabolic encephalopathy, rhabdomyolysis, DKA and acute kidney injury on CKD secondary to ATN/sepsis. Patient's baseline creatinine was unknown. His renal function continued to decline during the hospital stay and nephrology was consulted for further management. Hemodialysis catheter was placed on 06/21/2020 and patient underwent hemodialysis. The patient had resolution of the sepsis and DKA with IV fluids, IV antibiotics and IV insulin. Case management was consulted for arrangements of a hemodialysis chair outpatient. Covid test screening was completed and if negative patient will be discharged today. Dedicated discharge time 35 minutes Disposition: [id number] TO HOME OR SELFCARE Time spent for discharge: 35 - Discharge Diagnoses (1) YUNI (acute kidney injury) Status: Acute (2) DKA (diabetic ketoacidoses) Status: Acute Qualifiers: Diabetes mellitus complication detail: with coma (3) End stage renal disease Status: Acute (4) Rhabdomyolysis Status: Acute Qualifiers: Encounter type: initial encounter (5) Sepsis Status: Acute (6) Toxic metabolic encephalopathy Status: Acute Core Measure Documentation - Palliative Care Palliative Care/ Comfort Measures: Not Applicable - Core Measures Any of the following diagnoses?: none Exam - Constitutional Vitals: Temp Pulse Resp BP Pulse Ox 98.3 F 109 H 18 97/55 92 06/29/20 08:22 06/29/20 08:22 06/29/20 08:22 06/29/20 08:22 06/29/20 08:22 General appearance: Present: no acute distress, well-nourished - EENT Eyes: Present: PERRL ENT: hearing intact, clear oral mucosa - Neck Neck: Present: supple, normal ROM - Respiratory Respiratory effort: normal Respiratory: bilateral: CTA - Cardiovascular Heart Sounds: Present: S1 & S2. Absent: rub, click - Extremities Extremities: pulses symmetrical, No edema Peripheral Pulses: within normal limits - Abdominal General gastrointestinal: Present: soft, non-tender, non-distended, normal bowel sounds Male genitourinary: Present: normal - Integumentary Integumentary: Present: clear, warm, dry - Musculoskeletal Musculoskeletal: gait normal, strength equal bilaterally - Psychiatric Psychiatric: appropriate mood/affect, intact judgment & insight - Neurologic Neurologic: CNII-XII intact, moves all extremities Plan Activity: advance as tolerated Weight Bearing Status: Weight Bear as Tolerated Diet: renal Follow up with: PRIMARY MD GILMAR [Primary Care Provider] - 3-5 Days STEVEN JUAREZ MD [Staff Physician] - 7 Days Prescriptions: Atenolol 50 mg PO DAILY #30 Insulin Lispro [Humalog Kwikpen 200 UNITS/ML] 15 units SQ AC 30 Days Insulin NPH/Regular [NovoLIN 70/30] 20 unit SUB-Q BIDDIAB 30 Days units Semaglutide [Ozempic] 0.25 mg SQ 1XW 30 Days Simvastatin 40 mg PO DAILY #30 Sodium Bicarbonate 1,300 mg PO BID #60 tablet Insulin Degludec [Tresiba Flextouch U-200] 52 unit SQ QHS 30 Days Lisinopril [Zestril] 10 mg PO DAILY #30
[2020-06-29] MEDS ORDERED: SODIUM CHLORIDE 0.9% 500 ML 500 ML IV ONE ×3 (10:24→20:29)
--- NOTE | 2020-06-29 11:08 | Progress Note ---
Assessment and Plan Patient alert, awake. Patient resting on room air. no Respiratory distress. Patients O2 saturation 92% on room air. Patient afebrile. Has leukocytosis. Patients HGB dropped to 6.3. Patient received blood transfusion. Patients to days HGB 6.4. blood transfusion. ABG on room air. ABG pH 7.545 (7.320-7.450) H 06/24/20 16:17 POC ABG pCO2 34.2 mmHg (32.0-48.0) 06/24/20 16:17 POC ABG pO2 68.9 mmHg (83-108) L 06/24/20 16:17 POC ABG HCO3 28.9 06/24/20 16:17 Chest xray done 06/28/19 done reported Patchy density in the right mid to upper lung is unchanged. No pneumothorax. - Patient Problems (1) DKA (diabetic ketoacidoses) Current Visit: Yes Status: Acute Qualifiers: Diabetes mellitus complication detail: with coma Plan to address problem: Patients blood sugur 204, Anion gap 10. management as per primary care. (2) YUNI (acute kidney injury) Current Visit: Yes Status: Acute Plan to address problem: Management as per nephrology. (3) Altered mental status Current Visit: Yes Status: Acute Plan to address problem: Improving management as per primary care. (4) End stage renal disease Current Visit: Yes Status: Acute Plan to address problem: Management as per nephrology. (5) Rhabdomyolysis Current Visit: Yes Status: Acute Qualifiers: Encounter type: initial encounter Plan to address problem: Total CPK came down to 418. patient is on I/V fluids. (6) Sepsis Current Visit: Yes Status: Acute Plan to address problem: Patient treated with I/V levaquin. (7) Anemia Current Visit: Yes Status: Acute Plan to address problem: Patients HGB dropped to 6.3. Patient received blood transfusion. Repeat HGB 6.6. Recommend to transfuse other unit. Subjective Date of service: 06/29/20 Principal diagnosis: DKA; Ac encephalopathy; Severe sepsis; Rhabdomyolysis; YUNI. Interval history: Patient alert, awake. Patient resting on room air. no Respiratory distress. Patients O2 saturation 92% on room air. Patient afebrile. Has leukocytosis. P atients HGB dropped to 6.3. Patient received blood transfusion. Patients to days HGB 6.4. blood transfusion. ABG on room air. ABG pH 7.545 (7.320-7.450) H 06/24/20 16:17 POC ABG pCO2 34.2 mmHg (32.0-48.0) 06/24/20 16:17 POC ABG pO2 68.9 mmHg (83-108) L 06/24/20 16:17 POC ABG HCO3 28.9 06/24/20 16:17 Chest xray done 06/28/19 done reported Patchy density in the right mid to upper lung is unchanged. No pneumothorax. Objective Vital Signs - 12hr 06/29/20 06/29/20 06/29/20 05:05 08:22 10:24 Temperature 98.0 F 98.3 F Pulse Rate 107 H 109 H 109 H Respiratory 18 18 Rate Blood Pressure 108/58 97/55 O2 Sat by Pulse 93 92 Oximetry Constitutional: no acute distress, alert, other (middle aged male with normal respiratory effort at rest) Eyes: non-icteric ENT: oropharynx moist Neck: supple, no lymphadenopathy, no JVD Effort: normal Ascultation: Bilateral: clear Percussion: Bilateral: not dull Cardiovascular: regular rate and rhythm Gastrointestinal: normoactive bowel sounds, soft, non-tender, non-distended Integumentary: rash (xeroderma) Extremities: no cyanosis, no edema, pulses normal, no ischemia or petechiae Neurologic: non-focal exam, pupils equal and round, CN II-XII normal, motor strength normal and Psychiatric: mood appropriate, affect normal CBC and BMP: 06/29/20 07:33 06/29/20 07:33 ABG, PT/INR, D-dimer: ABG ABG pH 7.545 (7.320-7.450) H 06/24/20 16:17 POC ABG pCO2 34.2 mmHg (32.0-48.0) 06/24/20 16:17 POC ABG pO2 68.9 mmHg (83-108) L 06/24/20 16:17 POC ABG HCO3 28.9 06/24/20 16:17 PT/INR, D-dimer PT 22.1 Sec. (12.2-14.9) H 06/17/20 11:24 INR 1.92 (0.87-1.13) H 06/17/20 11:24 Abnormal lab findings: Abnormal Labs 06/17/20 06/17/20 06/17/20 11:24 11:24 11:24 WBC 14.7 H RBC 5.38 H Hgb Hct 49.1 H MCV MCH 27 L MCHC 29 L RDW Lymph % (Auto) 9.9 L [place] % (Auto) [place] # (Auto) Seg Neutrophils % 86.8 H Seg Neuts % (Manual) Lymphocytes % (Manual) Monocytes % (Manual) Nucleated RBC % Seg Neutrophils # 12.8 H Seg Neutrophils # Man Lymphocytes # (Manual) Monocytes # (Manual) Basophils # (Manual) PT 22.1 H INR 1.92 H APTT 38.9 H ABG pH POC ABG pO2 ABG Hemoglobin ABG Oxyhemoglobin ABG Sodium ABG Potassium ABG Glucose VBG pH Carboxyhemoglobin Sodium 149 H Potassium Chloride Carbon Dioxide BUN 84 H Creatinine 3.6 H Glucose 1394 H* POC Glucose Lactic Acid Calcium Phosphorus Magnesium AST 59 H ALT Total Creatine Kinase 5507 H CK-MB (CK-2) 7.9 H Total Protein 9.0 H Albumin 3.7 L Free T4 Arterial Blood Glucose Arterial Blood Ionized Calcium Urine WBC (Auto) Urine Creatinine Ur Total Protein 24 Hr Urine Total Protein Crossmatch 06/17/20 06/17/20 06/17/20 11:24 11:24 11:24 WBC RBC Hgb Hct MCV MCH MCHC RDW Lymph % (Auto) [place] % (Auto) [place] # (Auto) Seg Neutrophils % Seg Neuts % (Manual) Lymphocytes % (Manual) Monocytes % (Manual) Nucleated RBC % Seg Neutrophils # Seg Neutrophils # Man Lymphocytes # (Manual) Monocytes # (Manual) Basophils # (Manual) PT INR APTT ABG pH POC ABG pO2 ABG Hemoglobin ABG Oxyhemoglobin ABG Sodium ABG Potassium ABG Glucose VBG pH 7.123 L* Carboxyhemoglobin Sodium Potassium Chloride Carbon Dioxide BUN Creatinine Glucose POC Glucose Lactic Acid Calcium Phosphorus Magnesium 6.20 H AST ALT Total Creatine Kinase CK-MB (CK-2) Total Protein Albumin Free T4 1.65 H Arterial Blood Glucose Arterial Blood Ionized Calcium Urine WBC (Auto) Urine Creatinine Ur Total Protein 24 Hr Urine Total Protein Crossmatch 06/17/20 06/17/20 06/17/20 15:27 15:33 15:33 WBC RBC Hgb Hct MCV MCH MCHC RDW Lymph % (Auto) [place] % (Auto) [place] # (Auto) Seg Neutrophils % Seg Neuts % (Manual) Lymphocytes % (Manual) Monocytes % (Manual) Nucleated RBC % Seg Neutrophils # Seg Neutrophils # Man Lymphocytes # (Manual) Monocytes # (Manual) Basophils # (Manual) PT INR APTT ABG pH POC ABG pO2 ABG Hemoglobin ABG Oxyhemoglobin ABG Sodium ABG Potassium ABG Glucose VBG pH Carboxyhemoglobin Sodium Potassium Chloride Carbon Dioxide BUN Creatinine Glucose 1086 H* POC Glucose > 600 H Lactic Acid Calcium Phosphorus 9.40 H Magnesium 4.50 H AST ALT Total Creatine Kinase CK-MB (CK-2) Total Protein Albumin Free T4 Arterial Blood Glucose Arterial Blood Ionized Calcium Urine WBC (Auto) Urine Creatinine Ur Total Protein 24 Hr Urine Total Protein Crossmatch 06/17/20 06/17/20 06/17/20 16:58 18:39 18:41 WBC RBC Hgb Hct MCV MCH MCHC RDW Lymph % (Auto) [place] % (Auto) [place] # (Auto) Seg Neutrophils % Seg Neuts % (Manual) Lymphocytes % (Manual) Monocytes % (Manual) Nucleated RBC % Seg Neutrophils # Seg Neutrophils # Man Lymphocytes # (Manual) Monocytes # (Manual) Basophils # (Manual) PT INR APTT ABG pH POC ABG pO2 ABG Hemoglobin ABG Oxyhemoglobin ABG Sodium ABG Potassium ABG Glucose VBG pH Carboxyhemoglobin Sodium 155 H 154 H Potassium 3.0 L D 2.8 L* Chloride 114.0 H 117.3 H Carbon Dioxide 20 L 19 L BUN 83 H 84 H Creatinine 3.2 H 3.3 H Glucose 1046 H* 830 H* POC Glucose > 600 H Lactic Acid Calcium 7.8 L D 7.9 L Phosphorus Magnesium AST ALT Total Creatine Kinase CK-MB (CK-2) Total Protein Albumin Free T4 Arterial Blood Glucose Arterial Blood Ionized Calcium Urine WBC (Auto) Urine Creatinine Ur Total Protein 24 Hr Urine Total Protein Crossmatch 06/17/20 06/17/20 06/17/20 21:15 21:15 Unknown WBC RBC Hgb Hct MCV MCH MCHC RDW Lymph % (Auto) [place] % (Auto) [place] # (Auto) Seg Neutrophils % Seg Neuts % (Manual) Lymphocytes % (Manual) Monocytes % (Manual) Nucleated RBC % Seg Neutrophils # Seg Neutrophils # Man Lymphocytes # (Manual) Monocytes # (Manual) Basophils # (Manual) PT INR APTT ABG pH POC ABG pO2 ABG Hemoglobin ABG Oxyhemoglobin ABG Sodium ABG Potassium ABG Glucose VBG pH Carboxyhemoglobin Sodium 157 H Potassium 2.9 L* Chloride 118.8 H Carbon Dioxide 19 L BUN 84 H Creatinine 3.3 H Glucose 666 H* POC Glucose Lactic Acid 2.80 H* Calcium 7.8 L Phosphorus Magnesium AST ALT Total Creatine Kinase CK-MB (CK-2) Total Protein Albumin Free T4 Arterial Blood Glucose Arterial Blood Ionized Calcium Urine WBC (Auto) 7.0 H Urine Creatinine Ur Total Protein 24 Hr Urine Total Protein Crossmatch 06/18/20 06/18/20 06/18/20 00:10 00:20 03:20 WBC RBC Hgb Hct MCV MCH MCHC RDW Lymph % (Auto) [place] % (Auto) [place] # (Auto) Seg Neutrophils % Seg Neuts % (Manual) Lymphocytes % (Manual) Monocytes % (Manual) Nucleated RBC % Seg Neutrophils # Seg Neutrophils # Man Lymphocytes # (Manual) Monocytes # (Manual) Basophils # (Manual) PT INR APTT ABG pH POC ABG pO2 ABG Hemoglobin ABG Oxyhemoglobin ABG Sodium ABG Potassium ABG Glucose VBG pH Carboxyhemoglobin Sodium 160 H Potassium 3.0 L Chloride 118.8 H Carbon Dioxide BUN 89 H Creatinine 3.8 H Glucose 650 H* POC Glucose 291 H Lactic Acid 2.40 H* Calcium 7.8 L Phosphorus Magnesium AST ALT Total Creatine Kinase CK-MB (CK-2) Total Protein Albumin Free T4 Arterial Blood Glucose Arterial Blood Ionized Calcium Urine WBC (Auto) Urine Creatinine Ur Total Protein 24 Hr Urine Total Protein Crossmatch 06/18/20 06/18/20 06/18/20 05:19 06:27 06:27 WBC RBC Hgb Hct MCV MCH MCHC RDW Lymph % (Auto) [place] % (Auto) [place] # (Auto) Seg Neutrophils % Seg Neuts % (Manual) Lymphocytes % (Manual) Monocytes % (Manual) Nucleated RBC % Seg Neutrophils # Seg Neutrophils # Man Lymphocytes # (Manual) Monocytes # (Manual) Basophils # (Manual) PT INR APTT ABG pH POC ABG pO2 ABG Hemoglobin ABG Oxyhemoglobin ABG Sodium ABG Potassium ABG Glucose VBG pH Carboxyhemoglobin Sodium 167 H* Potassium 3.4 L Chloride 126.4 H Carbon Dioxide 21 L BUN 99 H Creatinine 4.5 H Glucose 291 H POC Glucose 276 H Lactic Acid 2.80 H* Calcium 8.1 L Phosphorus Magnesium AST ALT Total Creatine Kinase CK-MB (CK-2) Total Protein Albumin Free T4 Arterial Blood Glucose Arterial Blood Ionized Calcium Urine WBC (Auto) Urine Creatinine Ur Total Protein 24 Hr Urine Total Protein Crossmatch 06/18/20 06/18/20 06/18/20 06:45 08:40 08:49 WBC RBC Hgb Hct MCV MCH MCHC RDW Lymph % (Auto) [place] % (Auto) [place] # (Auto) Seg Neutrophils % Seg Neuts % (Manual) Lymphocytes % (Manual) Monocytes % (Manual) Nucleated RBC % Seg Neutrophils # Seg Neutrophils # Man Lymphocytes # (Manual) Monocytes # (Manual) Basophils # (Manual) PT INR APTT ABG pH POC ABG pO2 ABG Hemoglobin ABG Oxyhemoglobin ABG Sodium ABG Potassium ABG Glucose VBG pH Carboxyhemoglobin Sodium Potassium Chloride Carbon Dioxide BUN Creatinine Glucose POC Glucose 215 H 182 H Lactic Acid 2.20 H* Calcium Phosphorus Magnesium AST ALT Total Creatine Kinase CK-MB (CK-2) Total Protein Albumin Free T4 Arterial Blood Glucose Arterial Blood Ionized Calcium Urine WBC (Auto) Urine Creatinine Ur Total Protein 24 Hr Urine Total Protein Crossmatch 06/18/20 06/18/20 06/18/20 10:01 10:28 11:40 WBC RBC Hgb Hct MCV MCH MCHC RDW Lymph % (Auto) [place] % (Auto) [place] # (Auto) Seg Neutrophils % Seg Neuts % (Manual) Lymphocytes % (Manual) Monocytes % (Manual) Nucleated RBC % Seg Neutrophils # Seg Neutrophils # Man Lymphocytes # (Manual) Monocytes # (Manual) Basophils # (Manual) PT INR APTT ABG pH POC ABG pO2 ABG Hemoglobin ABG Oxyhemoglobin ABG Sodium ABG Potassium ABG Glucose VBG pH Carboxyhemoglobin Sodium 161 H* Potassium Chloride 125.4 H Carbon Dioxide 21 L BUN 98 H Creatinine 5.0 H Glucose 247 H POC Glucose 217 H Lactic Acid 3.20 H* Calcium 7.8 L Phosphorus Magnesium AST ALT Total Creatine Kinase CK-MB (CK-2) Total Protein Albumin Free T4 Arterial Blood Glucose Arterial Blood Ionized Calcium Urine WBC (Auto) Urine Creatinine Ur Total Protein 24 Hr Urine Total Protein Crossmatch 06/18/20 06/18/20 06/18/20 11:40 11:40 12:33 WBC RBC Hgb Hct MCV MCH MCHC RDW Lymph % (Auto) [place] % (Auto) [place] # (Auto) Seg Neutrophils % Seg Neuts % (Manual) Lymphocytes % (Manual) Monocytes % (Manual) Nucleated RBC % Seg Neutrophils # Seg Neutrophils # Man Lymphocytes # (Manual) Monocytes # (Manual) Basophils # (Manual) PT INR APTT ABG pH POC ABG pO2 ABG Hemoglobin ABG Oxyhemoglobin ABG Sodium ABG Potassium ABG Glucose VBG pH Carboxyhemoglobin Sodium Potassium Chloride Carbon Dioxide BUN Creatinine Glucose POC Glucose 199 H Lactic Acid 2.40 H* Calcium Phosphorus Magnesium AST ALT Total Creatine Kinase 06378 H CK-MB (CK-2) Total Protein Albumin Free T4 Arterial Blood Glucose Arterial Blood Ionized Calcium Urine WBC (Auto) Urine Creatinine Ur Total Protein 24 Hr Urine Total Protein Crossmatch 06/18/20 06/18/20 06/18/20 13:57 16:27 21:58 WBC RBC Hgb Hct MCV MCH MCHC RDW Lymph % (Auto) [place] % (Auto) [place] # (Auto) Seg Neutrophils % Seg Neuts % (Manual) Lymphocytes % (Manual) Monocytes % (Manual) Nucleated RBC % Seg Neutrophils # Seg Neutrophils # Man Lymphocytes # (Manual) Monocytes # (Manual) Basophils # (Manual) PT INR APTT ABG pH POC ABG pO2 ABG Hemoglobin ABG Oxyhemoglobin ABG Sodium ABG Potassium ABG Glucose VBG pH Carboxyhemoglobin Sodium Potassium Chloride Carbon Dioxide BUN Creatinine Glucose POC Glucose 198 H 185 H 281 H Lactic Acid Calcium Phosphorus Magnesium AST ALT Total Creatine Kinase CK-MB (CK-2) Total Protein Albumin Free T4 Arterial Blood Glucose Arterial Blood Ionized Calcium Urine WBC (Auto) Urine Creatinine Ur Total Protein 24 Hr Urine Total Protein Crossmatch 06/19/20 06/19/20 06/19/20 00:55 00:55 04:25 WBC RBC Hgb Hct MCV MCH MCHC RDW Lymph % (Auto) [place] % (Auto) [place] # (Auto) Seg Neutrophils % Seg Neuts % (Manual) Lymphocytes % (Manual) Monocytes % (Manual) Nucleated RBC % Seg Neutrophils # Seg Neutrophils # Man Lymphocytes # (Manual) Monocytes # (Manual) Basophils # (Manual) PT INR APTT ABG pH POC ABG pO2 ABG Hemoglobin ABG Oxyhemoglobin ABG Sodium ABG Potassium ABG Glucose VBG pH Carboxyhemoglobin Sodium 164 H* Potassium Chloride 125.8 H Carbon Dioxide 21 L BUN 100 H Creatinine 6.4 H Glucose 370 H POC Glucose 366 H Lactic Acid 2.30 H* Calcium 7.4 L Phosphorus Magnesium AST ALT Total Creatine Kinase CK-MB (CK-2) Total Protein Albumin Free T4 Arterial Blood Glucose Arterial Blood Ionized Calcium Urine WBC (Auto) Urine Creatinine Ur Total Protein 24 Hr Urine Total Protein Crossmatch 06/19/20 06/19/20 06/19/20 11:49 14:24 15:44 WBC RBC Hgb Hct MCV MCH MCHC RDW Lymph % (Auto) [place] % (Auto) [place] # (Auto) Seg Neutrophils % Seg Neuts % (Manual) Lymphocytes % (Manual) Monocytes % (Manual) Nucleated RBC % Seg Neutrophils # Seg Neutrophils # Man Lymphocytes # (Manual) Monocytes # (Manual) Basophils # (Manual) PT INR APTT ABG pH POC ABG pO2 ABG Hemoglobin ABG Oxyhemoglobin ABG Sodium ABG Potassium ABG Glucose VBG pH Carboxyhemoglobin Sodium Potassium Chloride Carbon Dioxide BUN Creatinine Glucose POC Glucose 411 H Lactic Acid 2.90 H* Calcium Phosphorus Magnesium AST ALT Total Creatine Kinase 80430 H CK-MB (CK-2) Total Protein Albumin Free T4 Arterial Blood Glucose Arterial Blood Ionized Calcium Urine WBC (Auto) Urine Creatinine Ur Total Protein 24 Hr Urine Total Protein Crossmatch 06/19/20 06/19/20 06/19/20 18:41 21:44 22:16 WBC RBC Hgb Hct MCV MCH MCHC RDW Lymph % (Auto) [place] % (Auto) [place] # (Auto) Seg Neutrophils % Seg Neuts % (Manual) Lymphocytes % (Manual) Monocytes % (Manual) Nucleated RBC % Seg Neutrophils # Seg Neutrophils # Man Lymphocytes # (Manual) Monocytes # (Manual) Basophils # (Manual) PT INR APTT ABG pH POC ABG pO2 ABG Hemoglobin ABG Oxyhemoglobin ABG Sodium ABG Potassium ABG Glucose VBG pH Carboxyhemoglobin Sodium Potassium Chloride Carbon Dioxide BUN Creatinine Glucose POC Glucose 404 H 333 H Lactic Acid 2.50 H* Calcium Phosphorus Magnesium AST ALT Total Creatine Kinase CK-MB (CK-2) Total Protein Albumin Free T4 Arterial Blood Glucose Arterial Blood Ionized Calcium Urine WBC (Auto) Urine Creatinine Ur Total Protein 24 Hr Urine Total Protein Crossmatch 06/20/20 06/20/20 06/20/20 00:12 04:37 05:08 WBC RBC Hgb Hct MCV MCH MCHC RDW Lymph % (Auto) [place] % (Auto) [place] # (Auto) Seg Neutrophils % Seg Neuts % (Manual) Lymphocytes % (Manual) Monocytes % (Manual) Nucleated RBC % Seg Neutrophils # Seg Neutrophils # Man Lymphocytes # (Manual) Monocytes # (Manual) Basophils # (Manual) PT INR APTT ABG pH POC ABG pO2 ABG Hemoglobin ABG Oxyhemoglobin ABG Sodium ABG Potassium ABG Glucose VBG pH Carboxyhemoglobin Sodium Potassium Chloride Carbon Dioxide BUN Creatinine Glucose POC Glucose 318 H Lactic Acid 2.10 H* Calcium Phosphorus Magnesium AST ALT Total Creatine Kinase 06471 H CK-MB (CK-2) Total Protein Albumin Free T4 Arterial Blood Glucose Arterial Blood Ionized Calcium Urine WBC (Auto) Urine Creatinine Ur Total Protein 24 Hr Urine Total Protein Crossmatch 06/20/20 06/20/20 06/20/20 10:19 14:47 14:47 WBC 15.1 H RBC Hgb 10.2 L Hct 32.0 L MCV MCH 27 L MCHC RDW Lymph % (Auto) [place] % (Auto) [place] # (Auto) Seg Neutrophils % Seg Neuts % (Manual) 79.0 H Lymphocytes % (Manual) 12.0 L Monocytes % (Manual) Nucleated RBC % Seg Neutrophils # Seg Neutrophils # Man 11.9 H Lymphocytes # (Manual) Monocytes # (Manual) 1.1 H Basophils # (Manual) 0.2 H PT INR APTT ABG pH POC ABG pO2 ABG Hemoglobin ABG Oxyhemoglobin ABG Sodium ABG Potassium ABG Glucose VBG pH Carboxyhemoglobin Sodium 156 H Potassium 5.9 H D Chloride 118.3 H Carbon Dioxide 20 L BUN 159 H Creatinine 9.4 H Glucose 283 H POC Glucose 220 H Lactic Acid Calcium 7.7 L Phosphorus Magnesium AST 149 H ALT 89 H Total Creatine Kinase CK-MB (CK-2) Total Protein 5.9 L D Albumin 2.3 L Free T4 Arterial Blood Glucose Arterial Blood Ionized Calcium Urine WBC (Auto) Urine Creatinine Ur Total Protein 24 Hr Urine Total Protein Crossmatch 06/20/20 06/20/20 06/20/20 17:02 19:43 22:01 WBC RBC Hgb Hct MCV MCH MCHC RDW Lymph % (Auto) [place] % (Auto) [place] # (Auto) Seg Neutrophils % Seg Neuts % (Manual) Lymphocytes % (Manual) Monocytes % (Manual) Nucleated RBC % Seg Neutrophils # Seg Neutrophils # Man Lymphocytes # (Manual) Monocytes # (Manual) Basophils # (Manual) PT INR APTT ABG pH POC ABG pO2 ABG Hemoglobin ABG Oxyhemoglobin ABG Sodium ABG Potassium ABG Glucose VBG pH Carboxyhemoglobin Sodium Potassium Chloride Carbon Dioxide BUN Creatinine Glucose POC Glucose 248 H 268 H Lactic Acid Calcium Phosphorus 6.70 H Magnesium AST ALT Total Creatine Kinase CK-MB (CK-2) Total Protein Albumin Free T4 Arterial Blood Glucose Arterial Blood Ionized Calcium Urine WBC (Auto) Urine Creatinine Ur Total Protein 24 Hr Urine Total Protein Crossmatch 06/21/20 06/21/20 06/21/20 02:22 04:28 09:45 WBC RBC Hgb Hct MCV MCH MCHC RDW Lymph % (Auto) [place] % (Auto) [place] # (Auto) Seg Neutrophils % Seg Neuts % (Manual) Lymphocytes % (Manual) Monocytes % (Manual) Nucleated RBC % Seg Neutrophils # Seg Neutrophils # Man Lymphocytes # (Manual) Monocytes # (Manual) Basophils # (Manual) PT INR APTT ABG pH POC ABG pO2 ABG Hemoglobin ABG Oxyhemoglobin ABG Sodium ABG Potassium ABG Glucose VBG pH Carboxyhemoglobin Sodium Potassium Chloride Carbon Dioxide BUN Creatinine Glucose POC Glucose 248 H 237 H 234 H Lactic Acid Calcium Phosphorus Magnesium AST ALT Total Creatine Kinase CK-MB (CK-2) Total Protein Albumin Free T4 Arterial Blood Glucose Arterial Blood Ionized Calcium Urine WBC (Auto) Urine Creatinine Ur Total Protein 24 Hr Urine Total Protein Crossmatch 06/21/20 06/21/20 06/21/20 15:29 15:29 15:29 WBC 11.8 H RBC 3.51 L Hgb 9.3 L Hct 29.8 L MCV MCH 27 L MCHC 31 L RDW Lymph % (Auto) [place] % (Auto) [place] # (Auto) Seg Neutrophils % Seg Neuts % (Manual) 81.0 H Lymphocytes % (Manual) 6.0 L Monocytes % (Manual) 10.0 H Nucleated RBC % Seg Neutrophils # Seg Neutrophils # Man 9.6 H Lymphocytes # (Manual) 0.7 L Monocytes # (Manual) 1.2 H Basophils # (Manual) PT INR APTT ABG pH POC ABG pO2 ABG Hemoglobin ABG Oxyhemoglobin ABG Sodium ABG Potassium ABG Glucose VBG pH Carboxyhemoglobin Sodium 152 H Potassium 6.0 H Chloride 115.0 H Carbon Dioxide 18 L BUN 161 H Creatinine 9.7 H Glucose 310 H POC Glucose Lactic Acid Calcium 7.9 L Phosphorus Magnesium AST ALT Total Creatine Kinase 18683 H CK-MB (CK-2) Total Protein Albumin Free T4 Arterial Blood Glucose Arterial Blood Ionized Calcium Urine WBC (Auto) Urine Creatinine Ur Total Protein 24 Hr Urine Total Protein Crossmatch 06/21/20 06/22/20 06/22/20 18:07 02:33 05:51 WBC 11.3 H RBC 3.18 L Hgb 8.6 L Hct 26.7 L MCV MCH 27 L MCHC RDW Lymph % (Auto) 13.2 L [place] % (Auto) 10.8 H [place] # (Auto) 1.2 H Seg Neutrophils % 75.6 H Seg Neuts % (Manual) Lymphocytes % (Manual) Monocytes % (Manual) Nucleated RBC % Seg Neutrophils # 8.5 H Seg Neutrophils # Man Lymphocytes # (Manual) Monocytes # (Manual) Basophils # (Manual) PT INR APTT ABG pH POC ABG pO2 ABG Hemoglobin ABG Oxyhemoglobin ABG Sodium ABG Potassium ABG Glucose VBG pH Carboxyhemoglobin Sodium Potassium Chloride Carbon Dioxide BUN Creatinine Glucose POC Glucose 320 H 302 H Lactic Acid Calcium Phosphorus Magnesium AST ALT Total Creatine Kinase CK-MB (CK-2) Total Protein Albumin Free T4 Arterial Blood Glucose Arterial Blood Ionized Calcium Urine WBC (Auto) Urine Creatinine Ur Total Protein 24 Hr Urine Total Protein Crossmatch 06/22/20 06/22/20 06/22/20 05:51 10:57 11:47 WBC RBC Hgb Hct MCV MCH MCHC RDW Lymph % (Auto) [place] % (Auto) [place] # (Auto) Seg Neutrophils % Seg Neuts % (Manual) Lymphocytes % (Manual) Monocytes % (Manual) Nucleated RBC % Seg Neutrophils # Seg Neutrophils # Man Lymphocytes # (Manual) Monocytes # (Manual) Basophils # (Manual) PT INR APTT ABG pH POC ABG pO2 ABG Hemoglobin ABG Oxyhemoglobin ABG Sodium ABG Potassium ABG Glucose VBG pH Carboxyhemoglobin Sodium Potassium Chloride Carbon Dioxide BUN 102 H Creatinine 7.1 H Glucose 357 H POC Glucose 438 H Lactic Acid Calcium 8.0 L Phosphorus Magnesium AST ALT Total Creatine Kinase 8530 H CK-MB (CK-2) Total Protein Albumin Free T4 Arterial Blood Glucose Arterial Blood Ionized Calcium Urine WBC (Auto) Urine Creatinine Ur Total Protein 24 Hr Urine Total Protein Crossmatch 06/23/20 06/23/20 06/23/20 02:12 04:38 05:13 WBC RBC 2.93 L Hgb 8.0 L Hct 24.8 L MCV MCH 27 L MCHC RDW Lymph % (Auto) 13.0 L [place] % (Auto) 14.1 H [place] # (Auto) 1.5 H Seg Neutrophils % 72.4 H Seg Neuts % (Manual) Lymphocytes % (Manual) Monocytes % (Manual) Nucleated RBC % Seg Neutrophils # Seg Neutrophils # Man Lymphocytes # (Manual) Monocytes # (Manual) Basophils # (Manual) PT INR APTT ABG pH POC ABG pO2 ABG Hemoglobin ABG Oxyhemoglobin ABG Sodium ABG Potassium ABG Glucose VBG pH Carboxyhemoglobin Sodium Potassium Chloride Carbon Dioxide BUN Creatinine Glucose POC Glucose 417 H 390 H Lactic Acid Calcium Phosphorus Magnesium AST ALT Total Creatine Kinase CK-MB (CK-2) Total Protein Albumin Free T4 Arterial Blood Glucose Arterial Blood Ionized Calcium Urine WBC (Auto) Urine Creatinine Ur Total Protein 24 Hr Urine Total Protein Crossmatch 06/23/20 06/23/20 06/23/20 05:13 05:13 10:06 WBC RBC Hgb Hct MCV MCH MCHC RDW Lymph % (Auto) [place] % (Auto) [place] # (Auto) Seg Neutrophils % Seg Neuts % (Manual) Lymphocytes % (Manual) Monocytes % (Manual) Nucleated RBC % Seg Neutrophils # Seg Neutrophils # Man Lymphocytes # (Manual) Monocytes # (Manual) Basophils # (Manual) PT INR APTT ABG pH POC ABG pO2 ABG Hemoglobin ABG Oxyhemoglobin ABG Sodium ABG Potassium ABG Glucose VBG pH Carboxyhemoglobin Sodium Potassium Chloride Carbon Dioxide BUN 90 H Creatinine 6.2 H Glucose 424 H POC Glucose 248 H Lactic Acid Calcium 7.8 L Phosphorus Magnesium AST ALT Total Creatine Kinase 8540 H CK-MB (CK-2) Total Protein Albumin Free T4 Arterial Blood Glucose Arterial Blood Ionized Calcium Urine WBC (Auto) Urine Creatinine Ur Total Protein 24 Hr Urine Total Protein Crossmatch 06/23/20 06/23/20 06/23/20 11:44 15:51 20:30 WBC RBC Hgb Hct MCV MCH MCHC RDW Lymph % (Auto) [place] % (Auto) [place] # (Auto) Seg Neutrophils % Seg Neuts % (Manual) Lymphocytes % (Manual) Monocytes % (Manual) Nucleated RBC % Seg Neutrophils # Seg Neutrophils # Man Lymphocytes # (Manual) Monocytes # (Manual) Basophils # (Manual) PT INR APTT ABG pH POC ABG pO2 ABG Hemoglobin ABG Oxyhemoglobin ABG Sodium ABG Potassium ABG Glucose VBG pH Carboxyhemoglobin Sodium Potassium Chloride Carbon Dioxide BUN Creatinine Glucose POC Glucose 243 H 283 H 275 H Lactic Acid Calcium Phosphorus Magnesium AST ALT Total Creatine Kinase CK-MB (CK-2) Total Protein Albumin Free T4 Arterial Blood Glucose Arterial Blood Ionized Calcium Urine WBC (Auto) Urine Creatinine Ur Total Protein 24 Hr Urine Total Protein Crossmatch 06/24/20 06/24/20 06/24/20 04:56 06:35 06:35 WBC 12.1 H RBC 2.78 L Hgb 7.5 L Hct 23.2 L MCV MCH 27 L MCHC RDW Lymph % (Auto) [place] % (Auto) [place] # (Auto) Seg Neutrophils % Seg Neuts % (Manual) 81.0 H Lymphocytes % (Manual) Monocytes % (Manual) Nucleated RBC % Seg Neutrophils # Seg Neutrophils # Man 9.8 H Lymphocytes # (Manual) Monocytes # (Manual) Basophils # (Manual) PT INR APTT ABG pH POC ABG pO2 ABG Hemoglobin ABG Oxyhemoglobin ABG Sodium ABG Potassium ABG Glucose VBG pH Carboxyhemoglobin Sodium Potassium Chloride Carbon Dioxide BUN 102 H Creatinine 7.1 H Glucose 324 H POC Glucose 269 H Lactic Acid Calcium Phosphorus Magnesium AST ALT Total Creatine Kinase 6347 H CK-MB (CK-2) Total Protein Albumin Free T4 Arterial Blood Glucose Arterial Blood Ionized Calcium Urine WBC (Auto) Urine Creatinine Ur Total Protein 24 Hr Urine Total Protein Crossmatch 06/24/20 06/24/20 06/24/20 10:22 12:11 16:17 WBC RBC Hgb Hct MCV MCH MCHC RDW Lymph % (Auto) [place] % (Auto) [place] # (Auto) Seg Neutrophils % Seg Neuts % (Manual) Lymphocytes % (Manual) Monocytes % (Manual) Nucleated RBC % Seg Neutrophils # Seg Neutrophils # Man Lymphocytes # (Manual) Monocytes # (Manual) Basophils # (Manual) PT INR APTT ABG pH 7.545 H POC ABG pO2 68.9 L ABG Hemoglobin 6.8 L ABG Oxyhemoglobin 92.4 L ABG Sodium 135.1 L ABG Potassium 3.0 L ABG Glucose 199 H VBG pH Carboxyhemoglobin 1.7 H Sodium Potassium Chloride Carbon Dioxide BUN Creatinine Glucose POC Glucose 331 H 303 H Lactic Acid Calcium Phosphorus Magnesium AST ALT Total Creatine Kinase CK-MB (CK-2) Total Protein Albumin Free T4 Arterial Blood Glucose 199 H Arterial Blood Ionized Calcium 4.3 L Urine WBC (Auto) Urine Creatinine Ur Total Protein 24 Hr Urine Total Protein Crossmatch 06/24/20 06/25/20 06/25/20 16:22 00:46 04:44 WBC 12.0 H RBC 2.56 L Hgb 6.9 L Hct 21.2 L MCV 83 L MCH 27 L MCHC RDW Lymph % (Auto) [place] % (Auto) 16.3 H [place] # (Auto) 2.0 H Seg Neutrophils % Seg Neuts % (Manual) Lymphocytes % (Manual) Monocytes % (Manual) Nucleated RBC % Seg Neutrophils # 8.1 H Seg Neutrophils # Man Lymphocytes # (Manual) Monocytes # (Manual) Basophils # (Manual) PT INR APTT ABG pH POC ABG pO2 ABG Hemoglobin ABG Oxyhemoglobin ABG Sodium ABG Potassium ABG Glucose VBG pH Carboxyhemoglobin Sodium Potassium Chloride Carbon Dioxide BUN Creatinine Glucose POC Glucose 173 H 391 H Lactic Acid Calcium Phosphorus Magnesium AST ALT Total Creatine Kinase CK-MB (CK-2) Total Protein Albumin Free T4 Arterial Blood Glucose Arterial Blood Ionized Calcium Urine WBC (Auto) Urine Creatinine Ur Total Protein 24 Hr Urine Total Protein Crossmatch 06/25/20 06/25/20 06/25/20 04:44 04:44 06:20 WBC RBC Hgb Hct MCV MCH MCHC RDW Lymph % (Auto) [place] % (Auto) [place] # (Auto) Seg Neutrophils % Seg Neuts % (Manual) Lymphocytes % (Manual) Monocytes % (Manual) Nucleated RBC % Seg Neutrophils # Seg Neutrophils # Man Lymphocytes # (Manual) Monocytes # (Manual) Basophils # (Manual) PT INR APTT ABG pH POC ABG pO2 ABG Hemoglobin ABG Oxyhemoglobin ABG Sodium ABG Potassium ABG Glucose VBG pH Carboxyhemoglobin Sodium Potassium 3.4 L Chloride Carbon Dioxide BUN 63 H Creatinine 4.7 H Glucose 300 H POC Glucose 240 H Lactic Acid Calcium 8.2 L Phosphorus Magnesium AST ALT Total Creatine Kinase 3017 H CK-MB (CK-2) Total Protein Albumin Free T4 Arterial Blood Glucose Arterial Blood Ionized Calcium Urine WBC (Auto) Urine Creatinine Ur Total Protein 24 Hr Urine Total Protein Crossmatch 06/25/20 06/25/20 06/25/20 08:20 16:57 16:58 WBC RBC Hgb Hct MCV MCH MCHC RDW Lymph % (Auto) [place] % (Auto) [place] # (Auto) Seg Neutrophils % Seg Neuts % (Manual) Lymphocytes % (Manual) Monocytes % (Manual) Nucleated RBC % Seg Neutrophils # Seg Neutrophils # Man Lymphocytes # (Manual) Monocytes # (Manual) Basophils # (Manual) PT INR APTT ABG pH POC ABG pO2 ABG Hemoglobin ABG Oxyhemoglobin ABG Sodium ABG Potassium ABG Glucose VBG pH Carboxyhemoglobin Sodium Potassium Chloride Carbon Dioxide BUN Creatinine Glucose POC Glucose 207 H 284 H Lactic Acid Calcium Phosphorus Magnesium AST ALT Total Creatine Kinase CK-MB (CK-2) Total Protein Albumin Free T4 Arterial Blood Glucose Arterial Blood Ionized Calcium Urine WBC (Auto) Urine Creatinine 73.8 H Ur Total Protein 24 Hr 644.00 H Urine Total Protein 46 H Crossmatch 06/25/20 06/26/20 06/26/20 21:20 04:06 07:18 WBC 14.0 H RBC 2.52 L Hgb 6.8 L Hct 21.0 L MCV 83 L MCH 27 L MCHC RDW Lymph % (Auto) [place] % (Auto) [place] # (Auto) Seg Neutrophils % Seg Neuts % (Manual) 77.0 H Lymphocytes % (Manual) 12.0 L Monocytes % (Manual) Nucleated RBC % Seg Neutrophils # Seg Neutrophils # Man 10.8 H Lymphocytes # (Manual) Monocytes # (Manual) 1.0 H Basophils # (Manual) PT INR APTT ABG pH POC ABG pO2 ABG Hemoglobin ABG Oxyhemoglobin ABG Sodium ABG Potassium ABG Glucose VBG pH Carboxyhemoglobin Sodium Potassium Chloride Carbon Dioxide BUN Creatinine Glucose POC Glucose 259 H 204 H Lactic Acid Calcium Phosphorus Magnesium AST ALT Total Creatine Kinase CK-MB (CK-2) Total Protein Albumin Free T4 Arterial Blood Glucose Arterial Blood Ionized Calcium Urine WBC (Auto) Urine Creatinine Ur Total Protein 24 Hr Urine Total Protein Crossmatch 06/26/20 06/26/20 06/26/20 07:18 07:18 09:18 WBC RBC Hgb Hct MCV MCH MCHC RDW Lymph % (Auto) [place] % (Auto) [place] # (Auto) Seg Neutrophils % Seg Neuts % (Manual) Lymphocytes % (Manual) Monocytes % (Manual) Nucleated RBC % Seg Neutrophils # Seg Neutrophils # Man Lymphocytes # (Manual) Monocytes # (Manual) Basophils # (Manual) PT INR APTT ABG pH POC ABG pO2 ABG Hemoglobin ABG Oxyhemoglobin ABG Sodium ABG Potassium ABG Glucose VBG pH Carboxyhemoglobin Sodium Potassium 3.0 L Chloride Carbon Dioxide BUN 46 H Creatinine 3.7 H Glucose 234 H POC Glucose 235 H Lactic Acid Calcium 8.2 L Phosphorus Magnesium AST ALT Total Creatine Kinase 1353 H CK-MB (CK-2) Total Protein Albumin Free T4 Arterial Blood Glucose Arterial Blood Ionized Calcium Urine WBC (Auto) Urine Creatinine Ur Total Protein 24 Hr Urine Total Protein Crossmatch 06/26/20 06/26/20 06/26/20 13:18 16:48 21:57 WBC RBC Hgb Hct MCV MCH MCHC RDW Lymph % (Auto) [place] % (Auto) [place] # (Auto) Seg Neutrophils % Seg Neuts % (Manual) Lymphocytes % (Manual) Monocytes % (Manual) Nucleated RBC % Seg Neutrophils # Seg Neutrophils # Man Lymphocytes # (Manual) Monocytes # (Manual) Basophils # (Manual) PT INR APTT ABG pH POC ABG pO2 ABG Hemoglobin ABG Oxyhemoglobin ABG Sodium ABG Potassium ABG Glucose VBG pH Carboxyhemoglobin Sodium Potassium Chloride Carbon Dioxide BUN Creatinine Glucose POC Glucose 175 H 205 H 201 H Lactic Acid Calcium Phosphorus Magnesium AST ALT Total Creatine Kinase CK-MB (CK-2) Total Protein Albumin Free T4 Arterial Blood Glucose Arterial Blood Ionized Calcium Urine WBC (Auto) Urine Creatinine Ur Total Protein 24 Hr Urine Total Protein Crossmatch 06/27/20 06/27/20 06/27/20 03:51 07:10 07:10 WBC 13.3 H RBC 2.30 L Hgb 6.3 L Hct 19.4 L* MCV MCH 27 L MCHC RDW Lymph % (Auto) [place] % (Auto) [place] # (Auto) Seg Neutrophils % Seg Neuts % (Manual) 77.0 H Lymphocytes % (Manual) 13.0 L Monocytes % (Manual) Nucleated RBC % 1.0 H Seg Neutrophils # Seg Neutrophils # Man 10.2 H Lymphocytes # (Manual) Monocytes # (Manual) 0.9 H Basophils # (Manual) PT INR APTT ABG pH POC ABG pO2 ABG Hemoglobin ABG Oxyhemoglobin ABG Sodium ABG Potassium ABG Glucose VBG pH Carboxyhemoglobin Sodium Potassium 3.1 L Chloride Carbon Dioxide 31 H BUN 36 H Creatinine 3.2 H Glucose 176 H POC Glucose 208 H Lactic Acid Calcium Phosphorus Magnesium AST ALT Total Creatine Kinase CK-MB (CK-2) Total Protein Albumin Free T4 Arterial Blood Glucose Arterial Blood Ionized Calcium Urine WBC (Auto) Urine Creatinine Ur Total Protein 24 Hr Urine Total Protein Crossmatch 06/27/20 06/27/20 06/27/20 07:10 07:43 09:41 WBC RBC Hgb Hct MCV MCH MCHC RDW Lymph % (Auto) [place] % (Auto) [place] # (Auto) Seg Neutrophils % Seg Neuts % (Manual) Lymphocytes % (Manual) Monocytes % (Manual) Nucleated RBC % Seg Neutrophils # Seg Neutrophils # Man Lymphocytes # (Manual) Monocytes # (Manual) Basophils # (Manual) PT INR APTT ABG pH POC ABG pO2 ABG Hemoglobin ABG Oxyhemoglobin ABG Sodium ABG Potassium ABG Glucose VBG pH Carboxyhemoglobin Sodium Potassium Chloride Carbon Dioxide BUN Creatinine Glucose POC Glucose 155 H 328 H Lactic Acid Calcium Phosphorus Magnesium AST ALT Total Creatine Kinase 801 H CK-MB (CK-2) Total Protein Albumin Free T4 Arterial Blood Glucose Arterial Blood Ionized Calcium Urine WBC (Auto) Urine Creatinine Ur Total Protein 24 Hr Urine Total Protein Crossmatch 06/27/20 06/27/20 06/27/20 10:54 16:01 20:13 WBC RBC Hgb Hct MCV MCH MCHC RDW Lymph % (Auto) [place] % (Auto) [place] # (Auto) Seg Neutrophils % Seg Neuts % (Manual) Lymphocytes % (Manual) Monocytes % (Manual) Nucleated RBC % Seg Neutrophils # Seg Neutrophils # Man Lymphocytes # (Manual) Monocytes # (Manual) Basophils # (Manual) PT INR APTT ABG pH POC ABG pO2 ABG Hemoglobin ABG Oxyhemoglobin ABG Sodium ABG Potassium ABG Glucose VBG pH Carboxyhemoglobin Sodium Potassium Chloride Carbon Dioxide BUN Creatinine Glucose POC Glucose 394 H Lactic Acid Calcium Phosphorus Magnesium AST ALT Total Creatine Kinase 580 H CK-MB (CK-2) Total Protein Albumin Free T4 Arterial Blood Glucose Arterial Blood Ionized Calcium Urine WBC (Auto) Urine Creatinine Ur Total Protein 24 Hr Urine Total Protein Crossmatch See Detail 06/27/20 06/28/20 06/28/20 21:49 04:17 07:12 WBC 13.4 H RBC 2.49 L Hgb 6.6 L Hct 20.5 L MCV 83 L MCH 27 L MCHC RDW 15.7 H Lymph % (Auto) [place] % (Auto) [place] # (Auto) Seg Neutrophils % Seg Neuts % (Manual) 71.0 H Lymphocytes % (Manual) Monocytes % (Manual) Nucleated RBC % Seg Neutrophils # Seg Neutrophils # Man 9.5 H Lymphocytes # (Manual) Monocytes # (Manual) Basophils # (Manual) PT INR APTT ABG pH POC ABG pO2 ABG Hemoglobin ABG Oxyhemoglobin ABG Sodium ABG Potassium ABG Glucose VBG pH Carboxyhemoglobin Sodium Potassium Chloride Carbon Dioxide BUN Creatinine Glucose POC Glucose 227 H 201 H Lactic Acid Calcium Phosphorus Magnesium AST ALT Total Creatine Kinase CK-MB (CK-2) Total Protein Albumin Free T4 Arterial Blood Glucose Arterial Blood Ionized Calcium Urine WBC (Auto) Urine Creatinine Ur Total Protein 24 Hr Urine Total Protein Crossmatch 06/28/20 06/28/20 06/28/20 07:12 07:12 16:12 WBC RBC Hgb Hct MCV MCH MCHC RDW Lymph % (Auto) [place] % (Auto) [place] # (Auto) Seg Neutrophils % Seg Neuts % (Manual) Lymphocytes % (Manual) Monocytes % (Manual) Nucleated RBC % Seg Neutrophils # Seg Neutrophils # Man Lymphocytes # (Manual) Monocytes # (Manual) Basophils # (Manual) PT INR APTT ABG pH POC ABG pO2 ABG Hemoglobin ABG Oxyhemoglobin ABG Sodium ABG Potassium ABG Glucose VBG pH Carboxyhemoglobin Sodium Potassium 3.1 L Chloride Carbon Dioxide 33 H BUN 43 H Creatinine 3.4 H Glucose 261 H POC Glucose 143 H Lactic Acid Calcium Phosphorus Magnesium AST ALT Total Creatine Kinase 418 H CK-MB (CK-2) Total Protein Albumin Free T4 Arterial Blood Glucose Arterial Blood Ionized Calcium Urine WBC (Auto) Urine Creatinine Ur Total Protein 24 Hr Urine Total Protein Crossmatch 06/28/20 06/28/20 06/28/20 20:48 23:22 23:22 WBC 12.7 H RBC 2.41 L Hgb 6.6 L Hct 20.0 L MCV 83 L MCH 27 L MCHC RDW 16.0 H Lymph % (Auto) [place] % (Auto) 9.7 H [place] # (Auto) 1.2 H Seg Neutrophils % Seg Neuts % (Manual) Lymphocytes % (Manual) Monocytes % (Manual) Nucleated RBC % Seg Neutrophils # 8.8 H Seg Neutrophils # Man Lymphocytes # (Manual) Monocytes # (Manual) Basophils # (Manual) PT INR APTT ABG pH POC ABG pO2 ABG Hemoglobin ABG Oxyhemoglobin ABG Sodium ABG Potassium ABG Glucose VBG pH Carboxyhemoglobin Sodium Potassium Chloride Carbon Dioxide BUN Creatinine Glucose POC Glucose 300 H Lactic Acid Calcium Phosphorus Magnesium AST ALT Total Creatine Kinase 341 H CK-MB (CK-2) Total Protein Albumin Free T4 Arterial Blood Glucose Arterial Blood Ionized Calcium Urine WBC (Auto) Urine Creatinine Ur Total Protein 24 Hr Urine Total Protein Crossmatch 06/29/20 06/29/20 06/29/20 05:09 07:33 07:33 WBC 11.8 H RBC 2.39 L Hgb 6.4 L Hct 19.7 L* MCV 82 L MCH 27 L MCHC RDW 15.9 H Lymph % (Auto) [place] % (Auto) 11.4 H [place] # (Auto) 1.4 H Seg Neutrophils % Seg Neuts % (Manual) Lymphocytes % (Manual) Monocytes % (Manual) Nucleated RBC % Seg Neutrophils # 8.2 H Seg Neutrophils # Man Lymphocytes # (Manual) Monocytes # (Manual) Basophils # (Manual) PT INR APTT ABG pH POC ABG pO2 ABG Hemoglobin ABG Oxyhemoglobin ABG Sodium ABG Potassium ABG Glucose VBG pH Carboxyhemoglobin Sodium Potassium 3.1 L Chloride Carbon Dioxide 31 H BUN 30 H Creatinine 2.6 H Glucose 204 H POC Glucose 193 H Lactic Acid Calcium Phosphorus Magnesium AST ALT Total Creatine Kinase CK-MB (CK-2) Total Protein Albumin Free T4 Arterial Blood Glucose Arterial Blood Ionized Calcium Urine WBC (Auto) Urine Creatinine Ur Total Protein 24 Hr Urine Total Protein Crossmatch 06/29/20 07:33 WBC RBC Hgb Hct MCV MCH MCHC RDW Lymph % (Auto) [place] % (Auto) [place] # (Auto) Seg Neutrophils % Seg Neuts % (Manual) Lymphocytes % (Manual) Monocytes % (Manual) Nucleated RBC % Seg Neutrophils # Seg Neutrophils # Man Lymphocytes # (Manual) Monocytes # (Manual) Basophils # (Manual) PT INR APTT ABG pH POC ABG pO2 ABG Hemoglobin ABG Oxyhemoglobin ABG Sodium ABG Potassium ABG Glucose VBG pH Carboxyhemoglobin Sodium Potassium Chloride Carbon Dioxide BUN Creatinine Glucose POC Glucose Lactic Acid Calcium Phosphorus Magnesium AST ALT Total Creatine Kinase 290 H CK-MB (CK-2) Total Protein Albumin Free T4 Arterial Blood Glucose Arterial Blood Ionized Calcium Urine WBC (Auto) Urine Creatinine Ur Total Protein 24 Hr Urine Total Protein Crossmatch Allied health notes reviewed: nursing
--- NOTE | 2020-06-29 12:10 | Progress Note ---
Assessment and Plan Assessment * Acute kidney injury vs advanced CKD, unknown previous baseline * Uremia * Severe hypernatremia * Hyperkalemia * Rhabdomyolysis, severe * Acidosis * Acute encephalopathy * Sepsis * DKA * Anemia Recommendations * Plan for HD q MWF; given unclear renal recovery, will plan to hold HD tomorrow, will plan for next HD based on creatinine trend and urine output * k noted, increase k bath with hd to 3K * S/p Garcia, strict I's/O * 24hr [id number] with 1300ml UOP over past 24 hours, monitor for renal recovery * Remains anemic, transfuse PRBCs per primary, start ESAs with HD prn * Trend CPK daily * Reviewed prior imaging * DKA protocol per primary * Renally dose medications * Avoid nephrotoxins * if no continued improvement, will need outpatient hd clinic, appreciate case management, does have placement at [facility] Date of service: 06/29/20 Principal diagnosis: DKA; Ac encephalopathy; Severe sepsis; Rhabdomyolysis; YUNI. Interval history: No acute issues noted this AM, notes feeling well. No issues with last HD treatment yesterday, no cramping, dizziness Objective - Exam Narrative Exam: Constitutional: No acute distress Head: Normocephalic/atraumatic Neck: Supple Lungs: Clear to auscultation bilaterally Cardiovascular: RRR, no M/R/G Abdomen: Soft, nontender, NABS Back, nontender Extremities: No edema, pulses within normal limits Skin: Intact, no rash Neuro: alert and oriented x3 - Vital Signs Vital signs: Vital Signs - 12hr 06/29/20 06/29/20 06/29/20 05:05 08:22 10:24 Temperature 98.0 F 98.3 F Pulse Rate 107 H 109 H 109 H Respiratory 18 18 Rate Blood Pressure 108/58 97/55 O2 Sat by Pulse 93 92 Oximetry - Lab 06/29/20 07:33 06/29/20 07:33 Most recent lab results ABG pH 7.545 (7.320-7.450) H 06/24/20 16:17 Calcium 8.4 mg/dL (8.4-10.2) 06/29/20 07:33 Phosphorus 6.70 mg/dL (2.5-4.5) H 06/20/20 19:43 Magnesium 4.50 mg/dL (1.7-2.3) H 06/17/20 15:33 Urine Creatinine 73.8 mg/dL (0.1-20.0) H 06/25/20 16:58 Ur Total Protein 24 Hr 644.00 mg/dL (2-200) H 06/25/20 16:58 Urine Total Protein 46 mg/dL (5-11.8) H 06/25/20 16:58 Medications & Allergies - Medications Allergies/Adverse Reactions: Allergies No Known Allergies Allergy (Unverified 06/21/20 20:38) Home Medications: Home Medications Medication Instructions Recorded Confirmed Last Taken Type Atenolol 50 mg PO DAILY #30 06/29/20 Unknown Rx Epoetin Germán 20,000 Unit [Procrit] 20,000 unit IV MARIELLE PRN vial 06/29/20 Unknown Rx Insulin Degludec [Tresiba 52 unit SQ QHS 30 Days 06/29/20 Unknown Rx Flextouch U-200] Insulin Lispro [Humalog Kwikpen 15 units SQ AC 30 Days 06/29/20 Unknown Rx 200 UNITS/ML] Insulin NPH/Regular [NovoLIN 70/30] 20 unit SUB-Q BIDDIAB 30 Days 06/29/20 Un known Rx units Lisinopril [Zestril] 10 mg PO DAILY #30 06/29/20 Unknown Rx Semaglutide [Ozempic] 0.25 mg SQ 1XW 30 Days 06/29/20 Unknown Rx Simvastatin 40 mg PO DAILY #30 06/29/20 Unknown Rx Sodium Bicarbonate 1,300 mg PO BID #60 tablet 06/29/20 Unknown Rx Active Medications: Generic Name Dose Route Start Last Admin Trade Name Freq PRN Reason Stop Dose Admin Acetaminophen 650 mg 06/17/20 13:40 06/25/20 15:09 Acetaminophen 325 Mg Tab PO 650 mg Q6H PRN Administration Pain, Mild (1-3) Albuterol 2.5 mg 06/17/20 13:40 Albuterol 2.5 Mg/3 Ml Nebu IH Q3HRT PRN Shortness Of Breath Dextrose 50 ml 06/19/20 15:28 Dextrose 50% In Water (25gm) 50 Ml Syringe IV Q30MIN PRN Hypoglycemia Protocol Epoetin Germán 20,000 unit 06/25/20 08:16 Epoetin Germán 20,000 Unit/1 Ml Inj IV MARIELLE PRN hemodialysis Famotidine 20 mg 06/19/20 10:00 06/29/20 10:08 Famotidine 20 Mg Tab PO 20 mg QDAY JERMAINE Administration Heparin Sodium (Porcine) 5,000 unit 06/17/20 22:00 06/29/20 10:10 Heparin 5,000 Unit/1 Ml Vial SUB-Q 5,000 unit Q12HR JERMAINE Administration Hydromorphone HCl 0.25 mg 06/17/20 13:40 06/22/20 23:58 Hydromorphone 1 Mg/1 Ml Inj IV 0.25 mg Q4H PRN Administration Pain, Moderate (4-6) Sodium Chloride 100 mls @ 999 mls/hr 06/24/20 12:00 Nacl 0.9% IV MARIELLE PRN Hypotension Insulin Human Isoph/Insulin Regular 20 unit 06/28/20 08:00 06/29/20 10:07 Insulin Nph/Regular 70/30 Inj SUB-Q 20 unit BIDDIAB JERMAINE Administration Insulin Human Lispro 0 unit 06/29/20 11:30 06/29/20 11:47 Insulin Lispro 100 Unit/Ml Vial 3 Ml SUB-Q 8 unit ACHS JERMAINE Administration Protocol Sodium Bicarbonate 650 mg 06/29/20 22:00 Sodium Bicarbonate 650 Mg Tab PO BID JERMAINE Sodium Chloride 10 ml 06/17/20 22:00 06/29/20 10:08 Sodium Chloride 0.9% 10 Ml Flush Syringe IV 10 ml BID JERMAINE Administration Sodium Chloride 10 ml 06/17/20 13:40 Sodium Chloride 0.9% 10 Ml Flush Syringe IV PRN PRN LINE FLUSH
[2020-06-30] MEDS: INSULIN LISPRO 100 UNIT/ML VIAL 3 mL SUB-Q SCH ×4 (08:15→22:11)
[2020-06-30] MEDS: INSULIN NPH/REGULAR 70/30 INJ SUB-Q SCH ×2 (08:16→17:47)
--- NOTE | 2020-06-30 08:50 | Progress Note ---
Assessment and Plan Assessment and plan: Sepsis Sepsis resolved Toxic metabolic encephalopathy Resolved, continue current care, IDDM DKA resolved, sliding-scale insulin therapy, Accu-Chek, hypoglycemia protocol Insulin changed to Humulin 70/30 20 units twice a day for better control and compliance Rhabdomyolysis IV fluid resuscitation therapy, monitor urine output every shift, CK level improving today. Repeat CK in a.m. Creatinine kinase every 12 hours reordered Improved End stage renal disease Hemodialysis catheter placed as per vascular surgery team, dialysis as per renal team. Avoid nephrotoxic agents. Nephrology to decide about whether the patient needs outpatient hemodialysis. Patient has a hemodialysis chair and patient to get hemodialysis as outpatient Covid test ordered so that he can be discharged home and attend hemodialysis center Anemia of ESRD Patient has received 2 units PRBCs DVT prophylaxis SCD to bilateral lower extremities while in bed, prophylactic anticoagulation Disposition. Anticipate discharge in a.m. - Patient Problems (1) YUNI (acute kidney injury) Current Visit: Yes Status: Acute (2) DKA (diabetic ketoacidoses) Current Visit: Yes Status: Acute Qualifiers: Diabetes mellitus complication detail: with coma (3) End stage renal disease Current Visit: Yes Status: Acute (4) Rhabdomyolysis Current Visit: Yes Status: Acute Qualifiers: Encounter type: initial encounter (5) Sepsis Current Visit: Yes Status: Acute (6) Toxic metabolic encephalopathy Current Visit: Yes Status: Acute History Interval history: No new issues overnight Hospitalist Physical - Constitutional Vitals: Temp Pulse Resp BP Pulse Ox 98.1 F 95 H 18 124/73 96 06/30/20 04:43 06/30/20 04:43 06/30/20 04:43 06/30/20 04:43 06/30/20 04:43 General appearance: Present: no acute distress, well-nourished - EENT Eyes: Present: PERRL, EOM intact ENT: hearing intact, clear oral mucosa, dentition normal - Neck Neck: Present: supple, normal ROM - Respiratory Respiratory effort: normal Respiratory: bilateral: CTA - Cardiovascular Rhythm: regular Heart Sounds: Present: S1 & S2. Absent: gallop, rub - Extremities Extremities: no ischemia, No edema, Full ROM - Abdominal General gastrointestinal: soft, non-tender, non-distended, normal bowel sounds - Integumentary Integumentary: Present: clear, warm, dry - Neurologic Neurologic: CNII-XII intact, moves all extremities HEART Score - HEART Score Troponin: Troponin T < 0.010 ng/mL (0.00-0.029) 06/17/20 11:24 Results - Labs CBC & Chem 7: 06/29/20 07:33 06/29/20 07:33 Labs: Laboratory Last Values WBC 11.8 K/mm3 (4.5-11.0) H 06/29/20 07:33 RBC 2.39 M/mm3 (3.65-5.03) L 06/29/20 07:33 Hgb 6.4 gm/dl (11.8-15.2) L 06/29/20 07:33 Hct 19.7 % (35.5-45.6) L* 06/29/20 07:33 MCV 82 fl (84-94) L 06/29/20 07:33 MCH 27 pg (28-32) L 06/29/20 07:33 MCHC 33 % (32-34) 06/29/20 07:33 RDW 15.9 % (13.2-15.2) H 06/29/20 07:33 Plt Count 272 K/mm3 (140-440) 06/29/20 07:33 Lymph % (Auto) 18.4 % (13.4-35.0) 06/29/20 07:33 [place] % (Auto) 11.4 % (0.0-7.3) H 06/29/20 07:33 Eos % (Auto) 0.6 % (0.0-4.3) 06/29/20 07:33 Baso % (Auto) 0.3 % (0.0-1.8) 06/29/20 07:33 Lymph # (Auto) 2.2 K/mm3 (1.2-5.4) 06/29/20 07:33 [place] # (Auto) 1.4 K/mm3 (0.0-0.8) H 06/29/20 07:33 Eos # (Auto) 0.1 K/mm3 (0.0-0.4) 06/29/20 07:33 Baso # (Auto) 0.0 K/mm3 (0.0-0.1) 06/29/20 07:33 Add Manual Diff Complete 06/28/20 07:12 Total Counted 100 06/28/20 07:12 Seg Neutrophils % 69.3 % (40.0-70.0) 06/29/20 07:33 Seg Neuts % (Manual) 71.0 % (40.0-70.0) H 06/28/20 07:12 Band Neutrophils % 4.0 % 06/28/20 07:12 Lymphocytes % (Manual) 17.0 % (13.4-35.0) 06/28/20 07:12 Monocytes % (Manual) 4.0 % (0.0-7.3) 06/28/20 07:12 Eosinophils % (Manual) 1.0 % (0.0-4.3) 06/28/20 07:12 Basophils % (Manual) 1.0 % (0.0-1.8) 06/27/20 07:10 Metamyelocytes % 1.0 % 06/26/20 07:18 Myelocytes % 3.0 % 06/28/20 07:12 Nucleated RBC % Not Reportable 06/28/20 07:12 Seg Neutrophils # 8.2 K/mm3 (1.8-7.7) H 06/29/20 07:33 Seg Neutrophils # Man 9.5 K/mm3 (1.8-7.7) H 06/28/20 07:12 Band Neutrophils # 0.5 K/mm3 06/28/20 07:12 Lymphocytes # (Manual) 2.3 K/mm3 (1.2-5.4) 06/28/20 07:12 Abs React Lymphs (Man) 0.0 K/mm3 06/28/20 07:12 Monocytes # (Manual) 0.5 K/mm3 (0.0-0.8) 06/28/20 07:12 Eosinophils # (Manual) 0.1 K/mm3 (0.0-0.4) 06/28/20 07:12 Basophils # (Manual) 0.0 K/mm3 (0.0-0.1) 06/28/20 07:12 Metamyelocytes # 0.0 K/mm3 06/28/20 07:12 Myelocytes # 0.4 K/mm3 06/28/20 07:12 Promyelocytes # 0.0 K/mm3 06/28/20 07:12 Blast Cells # 0.0 K/mm3 06/28/20 07:12 WBC Morphology Not Reportable 06/28/20 07:12 Hypersegmented Neuts Not Reportable 06/28/20 07:12 Hyposegmented Neuts Not Reportable 06/28/20 07:12 Hypogranular Neuts Not Reportable 06/28/20 07:12 Smudge Cells Not Reportable 06/28/20 07:12 Toxic Granulation Not Reportable 06/28/20 07:12 Toxic Vacuolation Not Reportable 06/28/20 07:12 Dohle Bodies Not Reportable 06/28/20 07:12 Pelger-Huet Anomaly Not Reportable 06/28/20 07:12 Seth Rods Not Reportable 06/28/20 07:12 Platelet Estimate Consistent w auto 06/28/20 07:12 Clumped Platelets Not Reportable 06/28/20 07:12 Plt Clumps, EDTA Not Reportable 06/28/20 07:12 Large Platelets Not Reportable 06/28/20 07:12 Giant Platelets Not Reportable 06/28/20 07:12 Platelet Satelliting Not Reportable 06/28/20 07:12 Plt Morphology Comment Not Reportable 06/28/20 07:12 RBC Morphology Not Reportable 06/28/20 07:12 Dimorphic RBCs Not Reportable 06/28/20 07:12 Polychromasia Few 06/28/20 07:12 Hypochromasia 1+ 06/28/20 07:12 Poikilocytosis Not Reportable 06/28/20 07:12 Anisocytosis Not Reportable 06/28/20 07:12 Microcytosis Not Reportable 06/28/20 07:12 Macrocytosis Not Reportable 06/28/20 07:12 Spherocytes Not Reportable 06/28/20 07:12 Pappenheimer Bodies Not Reportable 06/28/20 07:12 Sickle Cells Not Reportable 06/28/20 07:12 Target Cells Not Reportable 06/28/20 07:12 Tear Drop Cells Not Reportable 06/28/20 07:12 Ovalocytes Not Reportable 06/28/20 07:12 Helmet Cells Not Reportable 06/28/20 07:12 [place] Bodies Not Reportable 06/28/20 07:12 [place] Rings Not Reportable 06/28/20 07:12 [place] Cells Not Reportable 06/28/20 07:12 Bite Cells Not Reportable 06/28/20 07:12 Crenated Cell Not Reportable 06/28/20 07:12 Elliptocytes Not Reportable 06/28/20 07:12 Acanthocytes (Spur) Not Reportable 06/28/20 07:12 Rouleaux Not Reportable 06/28/20 07:12 Hemoglobin C Crystals Not Reportable 06/28/20 07:12 Schistocytes Not Reportable 06/28/20 07:12 Malaria parasites Not Reportable 06/28/20 07:12 Mick Bodies Not Reportable 06/28/20 07:12 Hem Pathologist Commnt No 06/28/20 07:12 PT 22.1 Sec. (12.2-14.9) H 06/17/20 11:24 INR 1.92 (0.87-1.13) H 06/17/20 11:24 APTT 38.9 Sec. (24.2-36.6) H 06/17/20 11:24 ABG pH 7.545 (7.320-7.450) H 06/24/20 16:17 POC ABG pCO2 34.2 mmHg (32.0-48.0) 06/24/20 16:17 POC ABG pO2 68.9 mmHg (83-108) L 06/24/20 16:17 POC ABG HCO3 28.9 06/24/20 16:17 POC ABG Base Excess 6.0 06/24/20 16:17 ABG Hemoglobin 6.8 (12.0-17.5) L 06/24/20 16:17 ABG Oxyhemoglobin 92.4 (94-98) L 06/24/20 16:17 ABG Methemoglobin 0.3 (0.0-1.5) 06/24/20 16:17 ABG Sodium 135.1 mmol/L (136.0-145.0) L 06/24/20 16:17 ABG Potassium 3.0 mmol/L (3.40-4.50) L 06/24/20 16:17 ABG Chloride 101.0 mmol/L (98-107) 06/24/20 16:17 ABG Glucose 199 mg/dL (65-95) H 06/24/20 16:17 VBG pH 7.123 (7.320-7.420) L* 06/17/20 11:24 Carboxyhemoglobin 1.7 (0.5-1.5) H 06/24/20 16:17 FiO2 21 06/24/20 16:17 Sodium 141 mmol/L (137-145) 06/29/20 07:33 Potassium 3.1 mmol/L (3.6-5.0) L 06/29/20 07:33 Chloride 102.8 mmol/L (98-107) 06/29/20 07:33 Carbon Dioxide 31 mmol/L (22-30) H 06/29/20 07:33 Anion Gap 10 mmol/L 06/29/20 07:33 BUN 30 mg/dL (9-20) H 06/29/20 07:33 Creatinine 2.6 mg/dL (0.8-1.3) H 06/29/20 07:33 Estimated GFR 32 ml/min 06/29/20 07:33 BUN/Creatinine Ratio 12 % 06/29/20 07:33 Glucose 204 mg/dL (75-100) H 06/29/20 07:33 POC Glucose 226 mg/dL (70-105) H 06/30/20 07:42 Lactic Acid 1.40 mmol/L (0.7-2.0) 06/20/20 05:08 Calcium 8.4 mg/dL (8.4-10.2) 06/29/20 07:33 Phosphorus 6.70 mg/dL (2.5-4.5) H 06/20/20 19:43 Magnesium 4.50 mg/dL (1.7-2.3) H 06/17/20 15:33 Total Bilirubin 0.60 mg/dL (0.1-1.2) 06/20/20 14:47 AST 149 units/L (5-40) H 06/20/20 14:47 ALT 89 units/L (7-56) H 06/20/20 14:47 Alkaline Phosphatase 60 units/L (35-129) 06/20/20 14:47 Ammonia 56.0 umol/L (25-60) 06/17/20 11:24 Total Creatine Kinase 290 units/L (55-170) H 06/29/20 07:33 CK-MB (CK-2) 7.9 ng/mL (0.0-4.0) H 06/17/20 11:24 CK-MB (CK-2) Rel Index 0.1 (0-4) 06/17/20 11:24 Troponin T < 0.010 ng/mL (0.00-0.029) 06/17/20 11:24 Total Protein 5.9 g/dL (6.3-8.2) L D 06/20/20 14:47 Albumin 2.3 g/dL (3.9-5) L 06/20/20 14:47 Albumin/Globulin Ratio 0.6 % 06/20/20 14:47 Procalcitonin 8.18 ng/mL (<0.15) 06/18/20 21:36 TSH 0.914 mlU/mL (0.270-4.200) 06/17/20 11:24 Free T4 1.65 ng/dL (0.76-1.46) H 06/17/20 11:24 PTH Intact 25.17 pg/mL (15-65) 06/25/20 08:30 Arterial Blood Glucose 199 mg/dL (65-95) H 06/24/20 16:17 Arterial Blood Ionized Calcium 4.3 mg/dL (4.6-5.3) L 06/24/20 16:17 Urine Color Yellow (Yellow) 06/17/20 Unknown Urine Turbidity Slightly-cloudy (Clear) 06/17/20 Unknown Urine pH 5.0 (5.0-7.0) 06/17/20 Unknown Ur Specific [place] 1.022 (1.003-1.030) 06/17/20 Unknown Urine Protein 100 mg/dl mg/dL (Negative) 06/17/20 Unknown Urine Glucose (UA) >=500 mg/dL (Negative) 06/17/20 Unknown Urine Ketones Neg mg/dL (Negative) 06/17/20 Unknown Urine Blood Lg (Negative) 06/17/20 Unknown Urine Nitrite Neg (Negative) 06/17/20 Unknown Urine Bilirubin Neg (Negative) 06/17/20 Unknown Urine Urobilinogen < 2.0 mg/dL (<2.0) 06/17/20 Unknown Ur Leukocyte Esterase Neg (Negative) 06/17/20 Unknown Urine WBC (Auto) 7.0 /HPF (0.0-6.0) H 06/17/20 Unknown Urine RBC (Auto) 5.0 /HPF (0.0-6.0) 06/17/20 Unknown U Epithel Cells (Auto) < 1.0 /HPF (0-13.0) 06/17/20 Unknown Urine Mucus Few /HPF 06/17/20 Unknown Urine Total Volume 1400 ml 06/25/20 16:58 Urine Creatinine 73.8 mg/dL (0.1-20.0) H 06/25/20 16:58 Ur Creatinine 24 Hour 1.0 (0.8-2.8) 06/25/20 16:58 Ur Total Protein 24 Hr 644.00 mg/dL (2-200) H 06/25/20 16:58 Urine Total Protein 46 mg/dL (5-11.8) H 06/25/20 16:58 Urine Opiates Screen Presumptive negative 06/19/20 19:00 Urine Methadone Screen Presumptive negative 06/19/20 19:00 Ur Barbiturates Screen Presumptive negative 06/19/20 19:00 Ur Phencyclidine Scrn Presumptive negative 06/19/20 19:00 Ur Amphetamines Screen Presumptive negative 06/19/20 19:00 U Benzodiazepines Scrn Presumptive negative 06/19/20 19:00 Urine Cocaine Screen Presumptive negative 06/19/20 19:00 U Marijuana (THC) Screen Presumptive negative 06/19/20 19:00 Drugs of Abuse Note Disclamer 06/19/20 19:00 Plasma/Serum Alcohol < 0.01 % (0-0.07) 06/17/20 11:24 Coronavirus (PCR) Positive (Negative) A 06/29/20 10:43 Hepatitis A IgM Ab Non-reactive (NonReactive) 06/20/20 19:43 Hep Bs Antigen Non-reactive (Negative) 06/20/20 19:43 Hep B Core IgM Ab Non-reactive (NonReactive) 06/20/20 19:43 Hepatitis C Antibody Non-reactive (NonReactive) 06/20/20 19:43 Blood Type B POSITIVE 06/27/20 10:54 Antibody Screen Negative 06/27/20 10:54 Crossmatch See Detail 06/27/20 10:54 Garcia/IV: Voiding Method Urinal IV Catheter Type [Left Forearm INT / Saline Lock ] IV Catheter Type [Left Peripheral IV Antecubital] IV Catheter Type [Right VAS Cath Internal Jugular] IV Catheter Type [Left Hand] INT / Saline Lock IV Catheter Type [Right INT / Saline Lock Antecubital] Active Medications - Current Medications Current Medications: Generic Name Dose Route Start Last Admin Trade Name Freq PRN Reason Stop Dose Admin Acetaminophen 650 mg 06/17/20 13:40 06/25/20 15:09 Acetaminophen 325 Mg Tab PO 650 mg Q6H PRN Administration Pain, Mild (1-3) Albuterol 2.5 mg 06/17/20 13:40 Albuterol 2.5 Mg/3 Ml Nebu IH Q3HRT PRN Shortness Of Breath Dextrose 50 ml 06/19/20 15:28 Dextrose 50% In Water (25gm) 50 Ml Syringe IV Q30MIN PRN Hypoglycemia Protocol Epoetin Germán 20,000 unit 06/25/20 08:16 Epoetin Germán 20,000 Unit/1 Ml Inj IV MARIELLE PRN hemodialysis Famotidine 20 mg 06/19/20 10:00 06/29/20 10:08 Famotidine 20 Mg Tab PO 20 mg QDAY JERMAINE Administration Heparin Sodium (Porcine) 5,000 unit 06/17/20 22:00 06/29/20 22:39 Heparin 5,000 Unit/1 Ml Vial SUB-Q 5,000 unit Q12HR JERMAINE Administration Hydromorphone HCl 0.25 mg 06/17/20 13:40 06/22/20 23:58 Hydromorphone 1 Mg/1 Ml Inj IV 0.25 mg Q4H PRN Administration Pain, Moderate (4-6) Sodium Chloride 100 mls @ 999 mls/hr 06/24/20 12:00 Nacl 0.9% IV MARIELLE PRN Hypotension Insulin Human Isoph/Insulin Regular 20 unit 06/28/20 08:00 06/29/20 17:23 Insulin Nph/Regular 70/30 Inj SUB-Q 20 unit BIDDIAB JERMAINE Administration Insulin Human Lispro 0 unit 06/29/20 11:30 06/29/20 22:39 Insulin Lispro 100 Unit/Ml Vial 3 Ml SUB-Q 8 unit ACHS JERMAINE Administration Protocol Sodium Bicarbonate 650 mg 06/29/20 22:00 06/29/20 22:39 Sodium Bicarbonate 650 Mg Tab PO 650 mg BID JERMAINE Administration Sodium Chloride 10 ml 06/17/20 22:00 06/29/20 22:40 Sodium Chloride 0.9% 10 Ml Flush Syringe IV 10 ml BID JERMAINE Administration Sodium Chloride 10 ml 06/17/20 13:40 Sodium Chloride 0.9% 10 Ml Flush Syringe IV PRN PRN LINE FLUSH Nutrition/Malnutrition Assess - Dietary Evaluation Nutrition/Malnutrition Findings: Nutrition Notes Start: 06/24/20 12:21 Freq: Status: Active Protocol: Document 06/24/20 12:21 LM (Rec: 06/24/20 12:24 LM [id number]) Nutrition Notes Current Diagnosis Acute Kidney Injury,CKD (stage V CKD),Diabetes,Sepsis Other Pertinent Diagnosis Rhabdomyolysis Current Diet Renal Labs/Tests BUN 102 Cr 7.1 BG 324 Pertinent Medications Humalog Height 5 ft 10 in Weight 82.6 kg [place] Body Weight (kg) 75.45 BMI 26.1 Weight Status Overweight Subjective/Other Information Screen for LOS. Pt ate 75% of breakfast this AM and reports eating well [facility] with no wt loss. Nutrition Intervention Revisit per MD consult or patient Sign Off request:
[2020-06-30] MEDS: FAMOTIDINE 20 MG TAB PO SCH (09:16)
[2020-06-30] MEDS: HEPARIN 5,000 UNIT/1 ML VIAL SUB-Q SCH ×2 (09:17→21:07)
[2020-06-30] MEDS: SODIUM BICARBONATE 650 MG TAB PO SCH ×2 (09:17→21:07)
[2020-06-30 10:04] LABS: Hematocrit 31.7 % (35.5-45.6); Hemoglobin 10.6 gm/dl (11.8-15.2); Mean Corpuscular HGB Conc 34 % (32-34); Mean Corpuscular Volume 84 fl (84-94); Platelet Count 266 K/mm3 (140-440); Red Blood Count 3.76 M/mm3 (3.65-5.03); Red Cell Distribution Width 15.4 % (13.2-15.2)
[2020-06-30 10:17] LABS: Calcium 8.7 mg/dL (8.4-10.2)
[2020-06-30 11:03] LABS: Anisocytosis 1+; Band Neutrophils # (Manual) 0.2 K/mm3; Total Cells Counted 100
[2020-06-30 11:04] LABS: Platelet Estimate Consistent w Auto
--- NOTE | 2020-06-30 13:29 | Progress Note ---
Assessment and Plan Assessment * Acute kidney injury vs advanced CKD, unknown previous baseline * Uremia * Severe hypernatremia * Hyperkalemia * Rhabdomyolysis, severe * Acidosis * Acute encephalopathy * Sepsis * DKA * Anemia Recommendations * Creatinine 2.6->2.4 off HD; will hold HD today with potential improvement in renal function. Plan for next HD based on creatinine trend, volume, urine output * Appreciate outpatient HD placement; while hopeful for renal recovery, would continue to plan for outpatient HD, can be dialyzed at [facility] if needed * S/p Garcia, strict I's/O * 24hr [id number] with 1300ml UOP over past 24 hours, continue to monitor for renal recovery * anemia improved s/p PRBCs * Reviewed prior imaging * DKA protocol per primary * Renally dose medications * Avoid nephrotoxins Subjective Date of service: 06/30/20 Principal diagnosis: DKA; Ac encephalopathy; Severe sepsis; Rhabdomyolysis; YUNI. Interval history: No acute issues noted this AM, notes feeling well. COVID-19 positive Objective - Exam Narrative Exam: Direct examination not done due to COVID-19, exam of primary team reviewed to limit PPE use - Vital Signs Vital signs: Vital Signs - 12hr 06/30/20 06/30/20 06/30/20 04:43 08:30 10:00 Temperature 98.1 F 98.0 F Pulse Rate 95 H 100 H Respiratory 18 18 18 Rate Blood Pressure 124/73 124/84 O2 Sat by Pulse 96 96 98 Oximetry 06/30/20 12:29 Temperature 98.9 F Pulse Rate 94 H Respiratory 20 Rate Blood Pressure 127/82 O2 Sat by Pulse 97 Oximetry - Lab 06/30/20 08:16 06/30/20 08:16 Most recent lab results ABG pH 7.545 (7.320-7.450) H 06/24/20 16:17 Calcium 8.7 mg/dL (8.4-10.2) 06/30/20 08:16 Phosphorus 6.70 mg/dL (2.5-4.5) H 06/20/20 19:43 Magnesium 4.50 mg/dL (1.7-2.3) H 06/17/20 15:33 Urine Creatinine 73.8 mg/dL (0.1-20.0) H 06/25/20 16:58 Ur Total Protein 24 Hr 644.00 mg/dL (2-200) H 06/25/20 16:58 Urine Total Protein 46 mg/dL (5-11.8) H 06/25/20 16:58 Medications & Allergies - Medications Allergies/Adverse Reactions: Allergies No Known Allergies Allergy (Unverified 06/21/20 20:38) Home Medications: Home Medications Medication Instructions Recorded Confirmed Last Taken Type Atenolol 50 mg PO DAILY #30 06/29/20 Unknown Rx Epoetin Germán 20,000 Unit [Procrit] 20,000 unit IV MARIELLE PRN vial 06/29/20 Unknown Rx Insulin Degludec [Tresiba 52 unit SQ QHS 30 Days 06/29/20 Unknown Rx Flextouch U-200] Insulin Lispro [Humalog Kwikpen 15 units SQ AC 30 Days 06/29/20 Unknown Rx 200 UNITS/ML] Insulin NPH/Regular [NovoLIN 70/30] 20 unit SUB-Q BIDDIAB 30 Days 06/29/20 Unknown Rx units Lisinopril [Zestril] 10 mg PO DAILY #30 06/29/20 Unknown Rx Semaglutide [Ozempic] 0.25 mg SQ 1XW 30 Days 06/29/20 Unknown Rx Simvastatin 40 mg PO DAILY #30 06/29/20 Unknown Rx Sodium Bicarbonate 1,300 mg PO BID #60 tablet 06/29/20 Unknown Rx Active Medications: Generic Name Dose Route Start Last Admin Trade Name Freq PRN Reason Stop Dose Admin Acetaminophen 650 mg 06/17/20 13:40 06/25/20 15:09 Acetaminophen 325 Mg Tab PO 650 mg Q6H PRN Administration Pain, Mild (1-3) Albuterol 2.5 mg 06/17/20 13:40 Albuterol 2.5 Mg/3 Ml Nebu IH Q3HRT PRN Shortness Of Breath Dextrose 50 ml 06/19/20 15:28 Dextrose 50% In Water (25gm) 50 Ml Syringe IV Q30MIN PRN Hypoglycemia Protocol Epoetin Germán 20,000 unit 06/25/20 08:16 Epoetin Germán 20,000 Unit/1 Ml Inj IV MARIELLE PRN hemodialysis Famotidine 20 mg 06/19/20 10:00 06/30/20 09:16 Famotidine 20 Mg Tab PO 20 mg QDAY JERMAINE Administration Heparin Sodium (Porcine) 5,000 unit 06/17/20 22:00 06/30/20 09:17 Heparin 5,000 Unit/1 Ml Vial SUB-Q 5,000 unit Q12HR JERMAINE Administration Hydromorphone HCl 0.25 mg 06/17/20 13:40 06/22/20 23:58 Hydromorphone 1 Mg/1 Ml Inj IV 0.25 mg Q4H PRN Administration Pain, Moderate (4-6) Sodium Chloride 100 mls @ 999 mls/hr 06/24/20 12:00 Nacl 0.9% IV MARIELLE PRN Hypotension Insulin Human Isoph/Insulin Regular 20 unit 06/28/20 08:00 06/30/20 08:16 Insulin Nph/Regular 70/30 Inj SUB-Q 20 unit BIDDIAB JERMAINE Administration Insulin Human Lispro 0 unit 06/29/20 11:30 06/30/20 12:55 Insulin Lispro 100 Unit/Ml Vial 3 Ml SUB-Q 4 unit ACHS JERMAINE Administration Protocol Sodium Bicarbonate 650 mg 06/29/20 22:00 06/30/20 09:17 Sodium Bicarbonate 650 Mg Tab PO 650 mg BID JERMAINE Administration Sodium Chloride 10 ml 06/17/20 22:00 06/30/20 09:18 Sodium Chloride 0.9% 10 Ml Flush Syringe IV 10 ml BID JERMAINE Administration Sodium Chloride 10 ml 06/17/20 13:40 Sodium Chloride 0.9% 10 Ml Flush Syringe IV PRN PRN LINE FLUSH
--- NOTE | 2020-06-30 21:11 | Progress Note ---
Assessment and Plan Patient alert, awake. Patient resting on room air. no Respiratory distress. Patients O2 saturation 95% on room air. Patient afebrile. Has leukocytosis. Patients HGB dropped to 6.3. Patient received blood transfusion. Patients to days HGB 10.6. ABG on room air. ABG pH 7.545 (7.320-7.450) H 06/24/20 16:17 POC ABG pCO2 34.2 mmHg (32.0-48.0) 06/24/20 16:17 POC ABG pO2 68.9 mmHg (83-108) L 06/24/20 16:17 POC ABG HCO3 28.9 06/24/20 16:17 Chest xray done 06/28/19 done reported Patchy density in the right mid to upper lung is unchanged. No pneumothorax. - Patient Problems (1) DKA (diabetic ketoacidoses) Current Visit: Yes Status: Acute Qualifiers: Diabetes mellitus complication detail: with coma Plan to address problem: Patients blood sugur 150, Anion gap 14. management as per primary care. (2) YUNI (acute kidney injury) Current Visit: Yes Status: Acute Plan to address problem: Management as per nephrology. (3) Altered mental status Current Visit: Yes Status: Acute Plan to address problem: Improving management as per primary care. (4) End stage renal disease Current Visit: Yes Status: Acute Plan to address problem: Management as per nephrology. (5) Rhabdomyolysis Current Visit: Yes Status: Acute Qualifiers: Encounter type: initial encounter Plan to address problem: Total CPK came down to 418. patient is on I/V fluids. (6) Sepsis Current Visit: Yes Status: Acute Plan to address problem: Patient treated with I/V levaquin. (7) Anemia Current Visit: Yes Status: Acute Plan to address problem: Patients HGB dropped to 6.3. Patient received blood transfusion. Repeat HGB 10.6 Subjective Date of service: 06/30/20 Principal diagnosis: DKA; Ac encephalopathy; Severe sepsis; Rhabdomyolysis; YUNI. Interval history: Patient alert, awake. Patient resting on room air. no Respiratory distress. Patients O2 saturation 95% on room air. Patient afebrile. Has leukocytosis. Patients HGB dropped to 6.3. Patient received blood transfusion. Patients to days HGB 10.6. ABG on room air. ABG pH 7.545 (7.320-7.450) H 06/24/20 16:17 POC ABG pCO2 34.2 mmHg (32.0-48.0) 06/24/20 16:17 POC ABG pO2 68.9 mmHg (83-108) L 06/24/20 16:17 POC ABG HCO3 28.9 06/24/20 16:17 Chest xray done 06/28/19 done reported Patchy density in the right mid to upper lung is unchanged. No pneumothorax. Objective Vital Signs - 12hr 06/30/20 06/30/20 06/30/20 10:00 12:29 17:31 Temperature 98.9 F 98.1 F Pulse Rate 94 H 99 H Respiratory 18 20 20 Rate Blood Pressure 127/82 127/82 O2 Sat by Pulse 98 97 97 Oximetry Constitutional: no acute distress, alert, other (middle aged male with normal respiratory effort at rest) Eyes: non-icteric ENT: oropharynx moist Neck: supple, no lymphadenopathy, no JVD Effort: normal Ascultation: Bilateral: clear Percussion: Bilateral: not dull Cardiovascular: regular rate and rhythm Gastrointestinal: normoactive bowel sounds, soft, non-tender, non-distended Integumentary: rash (xeroderma) Extremities: no cyanosis, no edema, pulses normal, no ischemia or petechiae Neurologic: non-focal exam, pupils equal and round, CN II-XII normal, motor strength normal and Psychiatric: mood appropriate, affect normal CBC and BMP: 06/30/20 08:16 06/30/20 08:16 ABG, PT/INR, D-dimer: ABG ABG pH 7.545 (7.320-7.450) H 06/24/20 16:17 POC ABG pCO2 34.2 mmHg (32.0-48.0) 06/24/20 16:17 POC ABG pO2 68.9 mmHg (83-108) L 06/24/20 16:17 POC ABG HCO3 28.9 06/24/20 16:17 PT/INR, D-dimer PT 22.1 Sec. (12.2-14.9) H 06/17/20 11:24 INR 1.92 (0.87-1.13) H 06/17/20 11:24 Abnormal lab findings: Abnormal Labs 06/17/20 06/17/20 06/17/20 11:24 11:24 11:24 WBC 14.7 H RBC 5.38 H Hgb Hct 49.1 H MCV MCH 27 L MCHC 29 L RDW Lymph % (Auto) 9.9 L [place] % (Auto) [place] # (Auto) Seg Neutrophils % 86.8 H Seg Neuts % (Manual) Lymphocytes % (Manual) Monocytes % (Manual) Nucleated RBC % Seg Neutrophils # 12.8 H Seg Neutrophils # Man Lymphocytes # (Manual) Monocytes # (Manual) Basophils # (Manual) PT 22.1 H INR 1.92 H APTT 38.9 H ABG pH POC ABG pO2 ABG Hemoglobin ABG Oxyhemoglobin ABG Sodium ABG Potassium ABG Glucose VBG pH Carboxyhemoglobin Sodium 149 H Potassium Chloride Carbon Dioxide BUN 84 H Creatinine 3.6 H Glucose 1394 H* POC Glucose Lactic Acid Calcium Phosphorus Magnesium AST 59 H ALT Total Creatine Kinase 5507 H CK-MB (CK-2) 7.9 H Total Protein 9.0 H Albumin 3.7 L Free T4 Arterial Blood Glucose Arterial Blood Ionized Calcium Urine WBC (Auto) Urine Creatinine Ur Total Protein 24 Hr Urine Total Protein Coronavirus (PCR) Crossmatch 06/17/20 06/17/20 06/17/20 11:24 11:24 11:24 WBC RBC Hgb Hct MCV MCH MCHC RDW Lymph % (Auto) [place] % (Auto) [place] # (Auto) Seg Neutrophils % Seg Neuts % (Manual) Lymphocytes % (Manual) Monocytes % (Manual) Nucleated RBC % Seg Neutrophils # Seg Neutrophils # Man Lymphocytes # (Manual) Monocytes # (Manual) Basophils # (Manual) PT INR APTT ABG pH POC ABG pO2 ABG Hemoglobin ABG Oxyhemoglobin ABG Sodium ABG Potassium ABG Glucose VBG pH 7.123 L* Carboxyhemoglobin Sodium Potassium Chloride Carbon Dioxide BUN Creatinine Glucose POC Glucose Lactic Acid Calcium Phosphorus Magnesium 6.20 H AST ALT Total Creatine Kinase CK-MB (CK-2) Total Protein Albumin Free T4 1.65 H Arterial Blood Glucose Arterial Blood Ionized Calcium Urine WBC (Auto) Urine Creatinine Ur Total Protein 24 Hr Urine Total Protein Coronavirus (PCR) Crossmatch 06/17/20 06/17/20 06/17/20 15:27 15:33 15:33 WBC RBC Hgb Hct MCV MCH MCHC RDW Lymph % (Auto) [place] % (Auto) [place] # (Auto) Seg Neutrophils % Seg Neuts % (Manual) Lymphocytes % (Manual) Monocytes % (Manual) Nucleated RBC % Seg Neutrophils # Seg Neutrophils # Man Lymphocytes # (Manual) Monocytes # (Manual) Basophils # (Manual) PT INR APTT ABG pH POC ABG pO2 ABG Hemoglobin ABG Oxyhemoglobin ABG Sodium ABG Potassium ABG Glucose VBG pH Carboxyhemoglobin Sodium Potassium Chloride Carbon Dioxide BUN Creatinine Glucose 1086 H* POC Glucose > 600 H Lactic Acid Calcium Phosphorus 9.40 H Magnesium 4.50 H AST ALT Total Creatine Kinase CK-MB (CK-2) Total Protein Albumin Free T4 Arterial Blood Glucose Arterial Blood Ionized Calcium Urine WBC (Auto) Urine Creatinine Ur Total Protein 24 Hr Urine Total Protein Coronavirus (PCR) Crossmatch 06/17/20 06/17/20 06/17/20 16:58 18:39 18:41 WBC RBC Hgb Hct MCV MCH MCHC RDW Lymph % (Auto) [place] % (Auto) [place] # (Auto) Seg Neutrophils % Seg Neuts % (Manual) Lymphocytes % (Manual) Monocytes % (Manual) Nucleated RBC % Seg Neutrophils # Seg Neutrophils # Man Lymphocytes # (Manual) Monocytes # (Manual) Basophils # (Manual) PT INR APTT ABG pH POC ABG pO2 ABG Hemoglobin ABG Oxyhemoglobin ABG Sodium ABG Potassium ABG Glucose VBG pH Carboxyhemoglobin Sodium 155 H 154 H Potassium 3.0 L D 2.8 L* Chloride 114.0 H 117.3 H Carbon Dioxide 20 L 19 L BUN 83 H 84 H Creatinine 3.2 H 3.3 H Glucose 1046 H* 830 H* POC Glucose > 600 H Lactic Acid Calcium 7.8 L D 7.9 L Phosphorus Magnesium AST ALT Total Creatine Kinase CK-MB (CK-2) Total Protein Albumin Free T4 Arterial Blood Glucose Arterial Blood Ionized Calcium Urine WBC (Auto) Urine Creatinine Ur Total Protein 24 Hr Urine Total Protein Coronavirus (PCR) Crossmatch 06/17/20 06/17/20 06/17/20 21:15 21:15 Unknown WBC RBC Hgb Hct MCV MCH MCHC RDW Lymph % (Auto) [place] % (Auto) [place] # (Auto) Seg Neutrophils % Seg Neuts % (Manual) Lymphocytes % (Manual) Monocytes % (Manual) Nucleated RBC % Seg Neutrophils # Seg Neutrophils # Man Lymphocytes # (Manual) Monocytes # (Manual) Basophils # (Manual) PT INR APTT ABG pH POC ABG pO2 ABG Hemoglobin ABG Oxyhemoglobin ABG Sodium ABG Potassium ABG Glucose VBG pH Carboxyhemoglobin Sodium 157 H Potassium 2.9 L* Chloride 118.8 H Carbon Dioxide 19 L BUN 84 H Creatinine 3.3 H Glucose 666 H* POC Glucose Lactic Acid 2.80 H* Calcium 7.8 L Phosphorus Magnesium AST ALT Total Creatine Kinase CK-MB (CK-2) Total Protein Albumin Free T4 Arterial Blood Glucose Arterial Blood Ionized Calcium Urine WBC (Auto) 7.0 H Urine Creatinine Ur Total Protein 24 Hr Urine Total Protein Coronavirus (PCR) Crossmatch 06/18/20 06/18/20 06/18/20 00:10 00:20 03:20 WBC RBC Hgb Hct MCV MCH MCHC RDW Lymph % (Auto) [place] % (Auto) [place] # (Auto) Seg Neutrophils % Seg Neuts % (Manual) Lymphocytes % (Manual) Monocytes % (Manual) Nucleated RBC % Seg Neutrophils # Seg Neutrophils # Man Lymphocytes # (Manual) Monocytes # (Manual) Basophils # (Manual) PT INR APTT ABG pH POC ABG pO2 ABG Hemoglobin ABG Oxyhemoglobin ABG Sodium ABG Potassium ABG Glucose VBG pH Carboxyhemoglobin Sodium 160 H Potassium 3.0 L Chloride 118.8 H Carbon Dioxide BUN 89 H Creatinine 3.8 H Glucose 650 H* POC Glucose 291 H Lactic Acid 2.40 H* Calcium 7.8 L Phosphorus Magnesium AST ALT Total Creatine Kinase CK-MB (CK-2) Total Protein Albumin Free T4 Arterial Blood Glucose Arterial Blood Ionized Calcium Urine WBC (Auto) Urine Creatinine Ur Total Protein 24 Hr Urine Total Protein Coronavirus (PCR) Crossmatch 06/18/20 06/18/20 06/18/20 05:19 06:27 06:27 WBC RBC Hgb Hct MCV MCH MCHC RDW Lymph % (Auto) [place] % (Auto) [place] # (Auto) Seg Neutrophils % Seg Neuts % (Manual) Lymphocytes % (Manual) Monocytes % (Manual) Nucleated RBC % Seg Neutrophils # Seg Neutrophils # Man Lymphocytes # (Manual) Monocytes # (Manual) Basophils # (Manual) PT INR APTT ABG pH POC ABG pO2 ABG Hemoglobin ABG Oxyhemoglobin ABG Sodium ABG Potassium ABG Glucose VBG pH Carboxyhemoglobin Sodium 167 H* Potassium 3.4 L Chloride 126.4 H Carbon Dioxide 21 L BUN 99 H Creatinine 4.5 H Glucose 291 H POC Glucose 276 H Lactic Acid 2.80 H* Calcium 8.1 L Phosphorus Magnesium AST ALT Total Creatine Kinase CK-MB (CK-2) Total Protein Albumin Free T4 Arterial Blood Glucose Arterial Blood Ionized Calcium Urine WBC (Auto) Urine Creatinine Ur Total Protein 24 Hr Urine Total Protein Coronavirus (PCR) Crossmatch 06/18/20 06/18/20 06/18/20 06:45 08:40 08:49 WBC RBC Hgb Hct MCV MCH MCHC RDW Lymph % (Auto) [place] % (Auto) [place] # (Auto) Seg Neutrophils % Seg Neuts % (Manual) Lymphocytes % (Manual) Monocytes % (Manual) Nucleated RBC % Seg Neutrophils # Seg Neutrophils # Man Lymphocytes # (Manual) Monocytes # (Manual) Basophils # (Manual) PT INR APTT ABG pH POC ABG pO2 ABG Hemoglobin ABG Oxyhemoglobin ABG Sodium ABG Potassium ABG Glucose VBG pH Carboxyhemoglobin Sodium Potassium Chloride Carbon Dioxide BUN Creatinine Glucose POC Glucose 215 H 182 H Lactic Acid 2.20 H* Calcium Phosphorus Magnesium AST ALT Total Creatine Kinase CK-MB (CK-2) Total Protein Albumin Free T4 Arterial Blood Glucose Arterial Blood Ionized Calcium Urine WBC (Auto) Urine Creatinine Ur Total Protein 24 Hr Urine Total Protein Coronavirus (PCR) Crossmatch 06/18/20 06/18/20 06/18/20 10:01 10:28 11:40 WBC RBC Hgb Hct MCV MCH MCHC RDW Lymph % (Auto) [place] % (Auto) [place] # (Auto) Seg Neutrophils % Seg Neuts % (Manual) Lymphocytes % (Manual) Monocytes % (Manual) Nucleated RBC % Seg Neutrophils # Seg Neutrophils # Man Lymphocytes # (Manual) Monocytes # (Manual) Basophils # (Manual) PT INR APTT ABG pH POC ABG pO2 ABG Hemoglobin ABG Oxyhemoglobin ABG Sodium ABG Potassium ABG Glucose VBG pH Carboxyhemoglobin Sodium 161 H* Potassium Chloride 125.4 H Carbon Dioxide 21 L BUN 98 H Creatinine 5.0 H Glucose 247 H POC Glucose 217 H Lactic Acid 3.20 H* Calcium 7.8 L Phosphorus Magnesium AST ALT Total Creatine Kinase CK-MB (CK-2) Total Protein Albumin Free T4 Arterial Blood Glucose Arterial Blood Ionized Calcium Urine WBC (Auto) Urine Creatinine Ur Total Protein 24 Hr Urine Total Protein Coronavirus (PCR) Crossmatch 06/18/20 06/18/20 06/18/20 11:40 11:40 12:33 WBC RBC Hgb Hct MCV MCH MCHC RDW Lymph % (Auto) [place] % (Auto) [place] # (Auto) Seg Neutrophils % Seg Neuts % (Manual) Lymphocytes % (Manual) Monocytes % (Manual) Nucleated RBC % Seg Neutrophils # Seg Neutrophils # Man Lymphocytes # (Manual) Monocytes # (Manual) Basophils # (Manual) PT INR APTT ABG pH POC ABG pO2 ABG Hemoglobin ABG Oxyhemoglobin ABG Sodium ABG Potassium ABG Glucose VBG pH Carboxyhemoglobin Sodium Potassium Chloride Carbon Dioxide BUN Creatinine Glucose POC Glucose 199 H Lactic Acid 2.40 H* Calcium Phosphorus Magnesium AST ALT Total Creatine Kinase 90006 H CK-MB (CK-2) Total Protein Albumin Free T4 Arterial Blood Glucose Arterial Blood Ionized Calcium Urine WBC (Auto) Urine Creatinine Ur Total Protein 24 Hr Urine Total Protein Coronavirus (PCR) Crossmatch 06/18/20 06/18/20 06/18/20 13:57 16:27 21:58 WBC RBC Hgb Hct MCV MCH MCHC RDW Lymph % (Auto) [place] % (Auto) [place] # (Auto) Seg Neutrophils % Seg Neuts % (Manual) Lymphocytes % (Manual) Monocytes % (Manual) Nucleated RBC % Seg Neutrophils # Seg Neutrophils # Man Lymphocytes # (Manual) Monocytes # (Manual) Basophils # (Manual) PT INR APTT ABG pH POC ABG pO2 ABG Hemoglobin ABG Oxyhemoglobin ABG Sodium ABG Potassium ABG Glucose VBG pH Carboxyhemoglobin Sodium Potassium Chloride Carbon Dioxide BUN Creatinine Glucose POC Glucose 198 H 185 H 281 H Lactic Acid Calcium Phosphorus Magnesium AST ALT Total Creatine Kinase CK-MB (CK-2) Total Protein Albumin Free T4 Arterial Blood Glucose Arterial Blood Ionized Calcium Urine WBC (Auto) Urine Creatinine Ur Total Protein 24 Hr Urine Total Protein Coronavirus (PCR) Crossmatch 06/19/20 06/19/20 06/19/20 00:55 00:55 04:25 WBC RBC Hgb Hct MCV MCH MCHC RDW Lymph % (Auto) [place] % (Auto) [place] # (Auto) Seg Neutrophils % Seg Neuts % (Manual) Lymphocytes % (Manual) Monocytes % (Manual) Nucleated RBC % Seg Neutrophils # Seg Neutrophils # Man Lymphocytes # (Manual) Monocytes # (Manual) Basophils # (Manual) PT INR APTT ABG pH POC ABG pO2 ABG Hemoglobin ABG Oxyhemoglobin ABG Sodium ABG Potassium ABG Glucose VBG pH Carboxyhemoglobin Sodium 164 H* Potassium Chloride 125.8 H Carbon Dioxide 21 L BUN 100 H Creatinine 6.4 H Glucose 370 H POC Glucose 366 H Lactic Acid 2.30 H* Calcium 7.4 L Phosphorus Magnesium AST ALT Total Creatine Kinase CK-MB (CK-2) Total Protein Albumin Free T4 Arterial Blood Glucose Arterial Blood Ionized Calcium Urine WBC (Auto) Urine Creatinine Ur Total Protein 24 Hr Urine Total Protein Coronavirus (PCR) Crossmatch 06/19/20 06/19/20 06/19/20 11:49 14:24 15:44 WBC RBC Hgb Hct MCV MCH MCHC RDW Lymph % (Auto) [place] % (Auto) [place] # (Auto) Seg Neutrophils % Seg Neuts % (Manual) Lymphocytes % (Manual) Monocytes % (Manual) Nucleated RBC % Seg Neutrophils # Seg Neutrophils # Man Lymphocytes # (Manual) Monocytes # (Manual) Basophils # (Manual) PT INR APTT ABG pH POC ABG pO2 ABG Hemoglobin ABG Oxyhemoglobin ABG Sodium ABG Potassium ABG Glucose VBG pH Carboxyhemoglobin Sodium Potassium Chloride Carbon Dioxide BUN Creatinine Glucose POC Glucose 411 H Lactic Acid 2.90 H* Calcium Phosphorus Magnesium AST ALT Total Creatine Kinase 17271 H CK-MB (CK-2) Total Protein Albumin Free T4 Arterial Blood Glucose Arterial Blood Ionized Calcium Urine WBC (Auto) Urine Creatinine Ur Total Protein 24 Hr Urine Total Protein Coronavirus (PCR) Crossmatch 06/19/20 06/19/20 06/19/20 18:41 21:44 22:16 WBC RBC Hgb Hct MCV MCH MCHC RDW Lymph % (Auto) [place] % (Auto) [place] # (Auto) Seg Neutrophils % Seg Neuts % (Manual) Lymphocytes % (Manual) Monocytes % (Manual) Nucleated RBC % Seg Neutrophils # Seg Neutrophils # Man Lymphocytes # (Manual) Monocytes # (Manual) Basophils # (Manual) PT INR APTT ABG pH POC ABG pO2 ABG Hemoglobin ABG Oxyhemoglobin ABG Sodium ABG Potassium ABG Glucose VBG pH Carboxyhemoglobin Sodium Potassium Chloride Carbon Dioxide BUN Creatinine Glucose POC Glucose 404 H 333 H Lactic Acid 2.50 H* Calcium Phosphorus Magnesium AST ALT Total Creatine Kinase CK-MB (CK-2) Total Protein Albumin Free T4 Arterial Blood Glucose Arterial Blood Ionized Calcium Urine WBC (Auto) Urine Creatinine Ur Total Protein 24 Hr Urine Total Protein Coronavirus (PCR) Crossmatch 06/20/20 06/20/20 06/20/20 00:12 04:37 05:08 WBC RBC Hgb Hct MCV MCH MCHC RDW Lymph % (Auto) [place] % (Auto) [place] # (Auto) Seg Neutrophils % Seg Neuts % (Manual) Lymphocytes % (Manual) Monocytes % (Manual) Nucleated RBC % Seg Neutrophils # Seg Neutrophils # Man Lymphocytes # (Manual) Monocytes # (Manual) Basophils # (Manual) PT INR APTT ABG pH POC ABG pO2 ABG Hemoglobin ABG Oxyhemoglobin ABG Sodium ABG Potassium ABG Glucose VBG pH Carboxyhemoglobin Sodium Potassium Chloride Carbon Dioxide BUN Creatinine Glucose POC Glucose 318 H Lactic Acid 2.10 H* Calcium Phosphorus Magnesium AST ALT Total Creatine Kinase 79139 H CK-MB (CK-2) Total Protein Albumin Free T4 Arterial Blood Glucose Arterial Blood Ionized Calcium Urine WBC (Auto) Urine Creatinine Ur Total Protein 24 Hr Urine Total Protein Coronavirus (PCR) Crossmatch 06/20/20 06/20/20 06/20/20 10:19 14:47 14:47 WBC 15.1 H RBC Hgb 10.2 L Hct 32.0 L MCV MCH 27 L MCHC RDW Lymph % (Auto) [place] % (Auto) [place] # (Auto) Seg Neutrophils % Seg Neuts % (Manual) 79.0 H Lymphocytes % (Manual) 12.0 L Monocytes % (Manual) Nucleated RBC % Seg Neutrophils # Seg Neutrophils # Man 11.9 H Lymphocytes # (Manual) Monocytes # (Manual) 1.1 H Basophils # (Manual) 0.2 H PT INR APTT ABG pH POC ABG pO2 ABG Hemoglobin ABG Oxyhemoglobin ABG Sodium ABG Potassium ABG Glucose VBG pH Carboxyhemoglobin Sodium 156 H Potassium 5.9 H D Chloride 118.3 H Carbon Dioxide 20 L BUN 159 H Creatinine 9.4 H Glucose 283 H POC Glucose 220 H Lactic Acid Calcium 7.7 L Phosphorus Magnesium AST 149 H ALT 89 H Total Creatine Kinase CK-MB (CK-2) Total Protein 5.9 L D Albumin 2.3 L Free T4 Arterial Blood Glucose Arterial Blood Ionized Calcium Urine WBC (Auto) Urine Creatinine Ur Total Protein 24 Hr Urine Total Protein Coronavirus (PCR) Crossmatch 06/20/20 06/20/20 06/20/20 17:02 19:43 22:01 WBC RBC Hgb Hct MCV MCH MCHC RDW Lymph % (Auto) [place] % (Auto) [place] # (Auto) Seg Neutrophils % Seg Neuts % (Manual) Lymphocytes % (Manual) Monocytes % (Manual) Nucleated RBC % Seg Neutrophils # Seg Neutrophils # Man Lymphocytes # (Manual) Monocytes # (Manual) Basophils # (Manual) PT INR APTT ABG pH POC ABG pO2 ABG Hemoglobin ABG Oxyhemoglobin ABG Sodium ABG Potassium ABG Glucose VBG pH Carboxyhemoglobin Sodium Potassium Chloride Carbon Dioxide BUN Creatinine Glucose POC Glucose 248 H 268 H Lactic Acid Calcium Phosphorus 6.70 H Magnesium AST ALT Total Creatine Kinase CK-MB (CK-2) Total Protein Albumin Free T4 Arterial Blood Glucose Arterial Blood Ionized Calcium Urine WBC (Auto) Urine Creatinine Ur Total Protein 24 Hr Urine Total Protein Coronavirus (PCR) Crossmatch 06/21/20 06/21/20 06/21/20 02:22 04:28 09:45 WBC RBC Hgb Hct MCV MCH MCHC RDW Lymph % (Auto) [place] % (Auto) [place] # (Auto) Seg Neutrophils % Seg Neuts % (Manual) Lymphocytes % (Manual) Monocytes % (Manual) Nucleated RBC % Seg Neutrophils # Seg Neutrophils # Man Lymphocytes # (Manual) Monocytes # (Manual) Basophils # (Manual) PT INR APTT ABG pH POC ABG pO2 ABG Hemoglobin ABG Oxyhemoglobin ABG Sodium ABG Potassium ABG Glucose VBG pH Carboxyhemoglobin Sodium Potassium Chloride Carbon Dioxide BUN Creatinine Glucose POC Glucose 248 H 237 H 234 H Lactic Acid Calcium Phosphorus Magnesium AST ALT Total Creatine Kinase CK-MB (CK-2) Total Protein Albumin Free T4 Arterial Blood Glucose Arterial Blood Ionized Calcium Urine WBC (Auto) Urine Creatinine Ur Total Protein 24 Hr Urine Total Protein Coronavirus (PCR) Crossmatch 06/21/20 06/21/20 06/21/20 15:29 15:29 15:29 WBC 11.8 H RBC 3.51 L Hgb 9.3 L Hct 29.8 L MCV MCH 27 L MCHC 31 L RDW Lymph % (Auto) [place] % (Auto) [place] # (Auto) Seg Neutrophils % Seg Neuts % (Manual) 81.0 H Lymphocytes % (Manual) 6.0 L Monocytes % (Manual) 10.0 H Nucleated RBC % Seg Neutrophils # Seg Neutrophils # Man 9.6 H Lymphocytes # (Manual) 0.7 L Monocytes # (Manual) 1.2 H Basophils # (Manual) PT INR APTT ABG pH POC ABG pO2 ABG Hemoglobin ABG Oxyhemoglobin ABG Sodium ABG Potassium ABG Glucose VBG pH Carboxyhemoglobin Sodium 152 H Potassium 6.0 H Chloride 115.0 H Carbon Dioxide 18 L BUN 161 H Creatinine 9.7 H Glucose 310 H POC Glucose Lactic Acid Calcium 7.9 L Phosphorus Magnesium AST ALT Total Creatine Kinase 63530 H CK-MB (CK-2) Total Protein Albumin Free T4 Arterial Blood Glucose Arterial Blood Ionized Calcium Urine WBC (Auto) Urine Creatinine Ur Total Protein 24 Hr Urine Total Protein Coronavirus (PCR) Crossmatch 06/21/20 06/22/20 06/22/20 18:07 02:33 05:51 WBC 11.3 H RBC 3.18 L Hgb 8.6 L Hct 26.7 L MCV MCH 27 L MCHC RDW Lymph % (Auto) 13.2 L [place] % (Auto) 10.8 H [place] # (Auto) 1.2 H Seg Neutrophils % 75.6 H Seg Neuts % (Manual) Lymphocytes % (Manual) Monocytes % (Manual) Nucleated RBC % Seg Neutrophils # 8.5 H Seg Neutrophils # Man Lymphocytes # (Manual) Monocytes # (Manual) Basophils # (Manual) PT INR APTT ABG pH POC ABG pO2 ABG Hemoglobin ABG Oxyhemoglobin ABG Sodium ABG Potassium ABG Glucose VBG pH Carboxyhemoglobin Sodium Potassium Chloride Carbon Dioxide BUN Creatinine Glucose POC Glucose 320 H 302 H Lactic Acid Calcium Phosphorus Magnesium AST ALT Total Creatine Kinase CK-MB (CK-2) Total Protein Albumin Free T4 Arterial Blood Glucose Arterial Blood Ionized Calcium Urine WBC (Auto) Urine Creatinine Ur Total Protein 24 Hr Urine Total Protein Coronavirus (PCR) Crossmatch 06/22/20 06/22/20 06/22/20 05:51 10:57 11:47 WBC RBC Hgb Hct MCV MCH MCHC RDW Lymph % (Auto) [place] % (Auto) [place] # (Auto) Seg Neutrophils % Seg Neuts % (Manual) Lymphocytes % (Manual) Monocytes % (Manual) Nucleated RBC % Seg Neutrophils # Seg Neutrophils # Man Lymphocytes # (Manual) Monocytes # (Manual) Basophils # (Manual) PT INR APTT ABG pH POC ABG pO2 ABG Hemoglobin ABG Oxyhemoglobin ABG Sodium ABG Potassium ABG Glucose VBG pH Carboxyhemoglobin Sodium Potassium Chloride Carbon Dioxide BUN 102 H Creatinine 7.1 H Glucose 357 H POC Glucose 438 H Lactic Acid Calcium 8.0 L Phosphorus Magnesium AST ALT Total Creatine Kinase 8530 H CK-MB (CK-2) Total Protein Albumin Free T4 Arterial Blood Glucose Arterial Blood Ionized Calcium Urine WBC (Auto) Urine Creatinine Ur Total Protein 24 Hr Urine Total Protein Coronavirus (PCR) Crossmatch 06/23/20 06/23/20 06/23/20 02:12 04:38 05:13 WBC RBC 2.93 L Hgb 8.0 L Hct 24.8 L MCV MCH 27 L MCHC RDW Lymph % (Auto) 13.0 L [place] % (Auto) 14.1 H [place] # (Auto) 1.5 H Seg Neutrophils % 72.4 H Seg Neuts % (Manual) Lymphocytes % (Manual) Monocytes % (Manual) Nucleated RBC % Seg Neutrophils # Seg Neutrophils # Man Lymphocytes # (Manual) Monocytes # (Manual) Basophils # (Manual) PT INR APTT ABG pH POC ABG pO2 ABG Hemoglobin ABG Oxyhemoglobin ABG Sodium ABG Potassium ABG Glucose VBG pH Carboxyhemoglobin Sodium Potassium Chloride Carbon Dioxide BUN Creatinine Glucose POC Glucose 417 H 390 H Lactic Acid Calcium Phosphorus Magnesium AST ALT Total Creatine Kinase CK-MB (CK-2) Total Protein Albumin Free T4 Arterial Blood Glucose Arterial Blood Ionized Calcium Urine WBC (Auto) Urine Creatinine Ur Total Protein 24 Hr Urine Total Protein Coronavirus (PCR) Crossmatch 06/23/20 06/23/20 06/23/20 05:13 05:13 10:06 WBC RBC Hgb Hct MCV MCH MCHC RDW Lymph % (Auto) [place] % (Auto) [place] # (Auto) Seg Neutrophils % Seg Neuts % (Manual) Lymphocytes % (Manual) Monocytes % (Manual) Nucleated RBC % Seg Neutrophils # Seg Neutrophils # Man Lymphocytes # (Manual) Monocytes # (Manual) Basophils # (Manual) PT INR APTT ABG pH POC ABG pO2 ABG Hemoglobin ABG Oxyhemoglobin ABG Sodium ABG Potassium ABG Glucose VBG pH Carboxyhemoglobin Sodium Potassium Chloride Carbon Dioxide BUN 90 H Creatinine 6.2 H Glucose 424 H POC Glucose 248 H Lactic Acid Calcium 7.8 L Phosphorus Magnesium AST ALT Total Creatine Kinase 8540 H CK-MB (CK-2) Total Protein Albumin Free T4 Arterial Blood Glucose Arterial Blood Ionized Calcium Urine WBC (Auto) Urine Creatinine Ur Total Protein 24 Hr Urine Total Protein Coronavirus (PCR) Crossmatch 06/23/20 06/23/20 06/23/20 11:44 15:51 20:30 WBC RBC Hgb Hct MCV MCH MCHC RDW Lymph % (Auto) [place] % (Auto) [place] # (Auto) Seg Neutrophils % Seg Neuts % (Manual) Lymphocytes % (Manual) Monocytes % (Manual) Nucleated RBC % Seg Neutrophils # Seg Neutrophils # Man Lymphocytes # (Manual) Monocytes # (Manual) Basophils # (Manual) PT INR APTT ABG pH POC ABG pO2 ABG Hemoglobin ABG Oxyhemoglobin ABG Sodium ABG Potassium ABG Glucose VBG pH Carboxyhemoglobin Sodium Potassium Chloride Carbon Dioxide BUN Creatinine Glucose POC Glucose 243 H 283 H 275 H Lactic Acid Calcium Phosphorus Magnesium AST ALT Total Creatine Kinase CK-MB (CK-2) Total Protein Albumin Free T4 Arterial Blood Glucose Arterial Blood Ionized Calcium Urine WBC (Auto) Urine Creatinine Ur Total Protein 24 Hr Urine Total Protein Coronavirus (PCR) Crossmatch 06/24/20 06/24/20 06/24/20 04:56 06:35 06:35 WBC 12.1 H RBC 2.78 L Hgb 7.5 L Hct 23.2 L MCV MCH 27 L MCHC RDW Lymph % (Auto) [place] % (Auto) [place] # (Auto) Seg Neutrophils % Seg Neuts % (Manual) 81.0 H Lymphocytes % (Manual) Monocytes % (Manual) Nucleated RBC % Seg Neutrophils # Seg Neutrophils # Man 9.8 H Lymphocytes # (Manual) Monocytes # (Manual) Basophils # (Manual) PT INR APTT ABG pH POC ABG pO2 ABG Hemoglobin ABG Oxyhemoglobin ABG Sodium ABG Potassium ABG Glucose VBG pH Carboxyhemoglobin Sodium Potassium Chloride Carbon Dioxide BUN 102 H Creatinine 7.1 H Glucose 324 H POC Glucose 269 H Lactic Acid Calcium Phosphorus Magnesium AST ALT Total Creatine Kinase 6347 H CK-MB (CK-2) Total Protein Albumin Free T4 Arterial Blood Glucose Arterial Blood Ionized Calcium Urine WBC (Auto) Urine Creatinine Ur Total Protein 24 Hr Urine Total Protein Coronavirus (PCR) Crossmatch 06/24/20 06/24/20 06/24/20 10:22 12:11 16:17 WBC RBC Hgb Hct MCV MCH MCHC RDW Lymph % (Auto) [place] % (Auto) [place] # (Auto) Seg Neutrophils % Seg Neuts % (Manual) Lymphocytes % (Manual) Monocytes % (Manual) Nucleated RBC % Seg Neutrophils # Seg Neutrophils # Man Lymphocytes # (Manual) Monocytes # (Manual) Basophils # (Manual) PT INR APTT ABG pH 7.545 H POC ABG pO2 68.9 L ABG Hemoglobin 6.8 L ABG Oxyhemoglobin 92.4 L ABG Sodium 135.1 L ABG Potassium 3.0 L ABG Glucose 199 H VBG pH Carboxyhemoglobin 1.7 H Sodium Potassium Chloride Carbon Dioxide BUN Creatinine Glucose POC Glucose 331 H 303 H Lactic Acid Calcium Phosphorus Magnesium AST ALT Total Creatine Kinase CK-MB (CK-2) Total Protein Albumin Free T4 Arterial Blood Glucose 199 H Arterial Blood Ionized Calcium 4.3 L Urine WBC (Auto) Urine Creatinine Ur Total Protein 24 Hr Urine Total Protein Coronavirus (PCR) Crossmatch 06/24/20 06/25/20 06/25/20 16:22 00:46 04:44 WBC 12.0 H RBC 2.56 L Hgb 6.9 L Hct 21.2 L MCV 83 L MCH 27 L MCHC RDW Lymph % (Auto) [place] % (Auto) 16.3 H [place] # (Auto) 2.0 H Seg Neutrophils % Seg Neuts % (Manual) Lymphocytes % (Manual) Monocytes % (Manual) Nucleated RBC % Seg Neutrophils # 8.1 H Seg Neutrophils # Man Lymphocytes # (Manual) Monocytes # (Manual) Basophils # (Manual) PT INR APTT ABG pH POC ABG pO2 ABG Hemoglobin ABG Oxyhemoglobin ABG Sodium ABG Potassium ABG Glucose VBG pH Carboxyhemoglobin Sodium Potassium Chloride Carbon Dioxide BUN Creatinine Glucose POC Glucose 173 H 391 H Lactic Acid Calcium Phosphorus Magnesium AST ALT Total Creatine Kinase CK-MB (CK-2) Total Protein Albumin Free T4 Arterial Blood Glucose Arterial Blood Ionized Calcium Urine WBC (Auto) Urine Creatinine Ur Total Protein 24 Hr Urine Total Protein Coronavirus (PCR) Crossmatch 06/25/20 06/25/20 06/25/20 04:44 04:44 06:20 WBC RBC Hgb Hct MCV MCH MCHC RDW Lymph % (Auto) [place] % (Auto) [place] # (Auto) Seg Neutrophils % Seg Neuts % (Manual) Lymphocytes % (Manual) Monocytes % (Manual) Nucleated RBC % Seg Neutrophils # Seg Neutrophils # Man Lymphocytes # (Manual) Monocytes # (Manual) Basophils # (Manual) PT INR APTT ABG pH POC ABG pO2 ABG Hemoglobin ABG Oxyhemoglobin ABG Sodium ABG Potassium ABG Glucose VBG pH Carboxyhemoglobin Sodium Potassium 3.4 L Chloride Carbon Dioxide BUN 63 H Creatinine 4.7 H Glucose 300 H POC Glucose 240 H Lactic Acid Calcium 8.2 L Phosphorus Magnesium AST ALT Total Creatine Kinase 3017 H CK-MB (CK-2) Total Protein Albumin Free T4 Arterial Blood Glucose Arterial Blood Ionized Calcium Urine WBC (Auto) Urine Creatinine Ur Total Protein 24 Hr Urine Total Protein Coronavirus (PCR) Crossmatch 06/25/20 06/25/20 06/25/20 08:20 16:57 16:58 WBC RBC Hgb Hct MCV MCH MCHC RDW Lymph % (Auto) [place] % (Auto) [place] # (Auto) Seg Neutrophils % Seg Neuts % (Manual) Lymphocytes % (Manual) Monocytes % (Manual) Nucleated RBC % Seg Neutrophils # Seg Neutrophils # Man Lymphocytes # (Manual) Monocytes # (Manual) Basophils # (Manual) PT INR APTT ABG pH POC ABG pO2 ABG Hemoglobin ABG Oxyhemoglobin ABG Sodium ABG Potassium ABG Glucose VBG pH Carboxyhemoglobin Sodium Potassium Chloride Carbon Dioxide BUN Creatinine Glucose POC Glucose 207 H 284 H Lactic Acid Calcium Phosphorus Magnesium AST ALT Total Creatine Kinase CK-MB (CK-2) Total Protein Albumin Free T4 Arterial Blood Glucose Arterial Blood Ionized Calcium Urine WBC (Auto) Urine Creatinine 73.8 H Ur Total Protein 24 Hr 644.00 H Urine Total Protein 46 H Coronavirus (PCR) Crossmatch 06/25/20 06/26/20 06/26/20 21:20 04:06 07:18 WBC 14.0 H RBC 2.52 L Hgb 6.8 L Hct 21.0 L MCV 83 L MCH 27 L MCHC RDW Lymph % (Auto) [place] % (Auto) [place] # (Auto) Seg Neutrophils % Seg Neuts % (Manual) 77.0 H Lymphocytes % (Manual) 12.0 L Monocytes % (Manual) Nucleated RBC % Seg Neutrophils # Seg Neutrophils # Man 10.8 H Lymphocytes # (Manual) Monocytes # (Manual) 1.0 H Basophils # (Manual) PT INR APTT ABG pH POC ABG pO2 ABG Hemoglobin ABG Oxyhemoglobin ABG Sodium ABG Potassium ABG Glucose VBG pH Carboxyhemoglobin Sodium Potassium Chloride Carbon Dioxide BUN Creatinine Glucose POC Glucose 259 H 204 H Lactic Acid Calcium Phosphorus Magnesium AST ALT Total Creatine Kinase CK-MB (CK-2) Total Protein Albumin Free T4 Arterial Blood Glucose Arterial Blood Ionized Calcium Urine WBC (Auto) Urine Creatinine Ur Total Protein 24 Hr Urine Total Protein Coronavirus (PCR) Crossmatch 06/26/20 06/26/20 06/26/20 07:18 07:18 09:18 WBC RBC Hgb Hct MCV MCH MCHC RDW Lymph % (Auto) [place] % (Auto) [place] # (Auto) Seg Neutrophils % Seg Neuts % (Manual) Lymphocytes % (Manual) Monocytes % (Manual) Nucleated RBC % Seg Neutrophils # Seg Neutrophils # Man Lymphocytes # (Manual) Monocytes # (Manual) Basophils # (Manual) PT INR APTT ABG pH POC ABG pO2 ABG Hemoglobin ABG Oxyhemoglobin ABG Sodium ABG Potassium ABG Glucose VBG pH Carboxyhemoglobin Sodium Potassium 3.0 L Chloride Carbon Dioxide BUN 46 H Creatinine 3.7 H Glucose 234 H POC Glucose 235 H Lactic Acid Calcium 8.2 L Phosphorus Magnesium AST ALT Total Creatine Kinase 1353 H CK-MB (CK-2) Total Protein Albumin Free T4 Arterial Blood Glucose Arterial Blood Ionized Calcium Urine WBC (Auto) Urine Creatinine Ur Total Protein 24 Hr Urine Total Protein Coronavirus (PCR) Crossmatch 06/26/20 06/26/20 06/26/20 13:18 16:48 21:57 WBC RBC Hgb Hct MCV MCH MCHC RDW Lymph % (Auto) [place] % (Auto) [place] # (Auto) Seg Neutrophils % Seg Neuts % (Manual) Lymphocytes % (Manual) Monocytes % (Manual) Nucleated RBC % Seg Neutrophils # Seg Neutrophils # Man Lymphocytes # (Manual) Monocytes # (Manual) Basophils # (Manual) PT INR APTT ABG pH POC ABG pO2 ABG Hemoglobin ABG Oxyhemoglobin ABG Sodium ABG Potassium ABG Glucose VBG pH Carboxyhemoglobin Sodium Potassium Chloride Carbon Dioxide BUN Creatinine Glucose POC Glucose 175 H 205 H 201 H Lactic Acid Calcium Phosphorus Magnesium AST ALT Total Creatine Kinase CK-MB (CK-2) Total Protein Albumin Free T4 Arterial Blood Glucose Arterial Blood Ionized Calcium Urine WBC (Auto) Urine Creatinine Ur Total Protein 24 Hr Urine Total Protein Coronavirus (PCR) Crossmatch 06/27/20 06/27/20 06/27/20 03:51 07:10 07:10 WBC 13.3 H RBC 2.30 L Hgb 6.3 L Hct 19.4 L* MCV MCH 27 L MCHC RDW Lymph % (Auto) [place] % (Auto) [place] # (Auto) Seg Neutrophils % Seg Neuts % (Manual) 77.0 H Lymphocytes % (Manual) 13.0 L Monocytes % (Manual) Nucleated RBC % 1.0 H Seg Neutrophils # Seg Neutrophils # Man 10.2 H Lymphocytes # (Manual) Monocytes # (Manual) 0.9 H Basophils # (Manual) PT INR APTT ABG pH POC ABG pO2 ABG Hemoglobin ABG Oxyhemoglobin ABG Sodium ABG Potassium ABG Glucose VBG pH Carboxyhemoglobin Sodium Potassium 3.1 L Chloride Carbon Dioxide 31 H BUN 36 H Creatinine 3.2 H Glucose 176 H POC Glucose 208 H Lactic Acid Calcium Phosphorus Magnesium AST ALT Total Creatine Kinase CK-MB (CK-2) Total Protein Albumin Free T4 Arterial Blood Glucose Arterial Blood Ionized Calcium Urine WBC (Auto) Urine Creatinine Ur Total Protein 24 Hr Urine Total Protein Coronavirus (PCR) Crossmatch 06/27/20 06/27/20 06/27/20 07:10 07:43 09:41 WBC RBC Hgb Hct MCV MCH MCHC RDW Lymph % (Auto) [place] % (Auto) [place] # (Auto) Seg Neutrophils % Seg Neuts % (Manual) Lymphocytes % (Manual) Monocytes % (Manual) Nucleated RBC % Seg Neutrophils # Seg Neutrophils # Man Lymphocytes # (Manual) Monocytes # (Manual) Basophils # (Manual) PT INR APTT ABG pH POC ABG pO2 ABG Hemoglobin ABG Oxyhemoglobin ABG Sodium ABG Potassium ABG Glucose VBG pH Carboxyhemoglobin Sodium Potassium Chloride Carbon Dioxide BUN Creatinine Glucose POC Glucose 155 H 328 H Lactic Acid Calcium Phosphorus Magnesium AST ALT Total Creatine Kinase 801 H CK-MB (CK-2) Total Protein Albumin Free T4 Arterial Blood Glucose Arterial Blood Ionized Calcium Urine WBC (Auto) Urine Creatinine Ur Total Protein 24 Hr Urine Total Protein Coronavirus (PCR) Crossmatch 06/27/20 06/27/20 06/27/20 10:54 16:01 20:13 WBC RBC Hgb Hct MCV MCH MCHC RDW Lymph % (Auto) [place] % (Auto) [place] # (Auto) Seg Neutrophils % Seg Neuts % (Manual) Lymphocytes % (Manual) Monocytes % (Manual) Nucleated RBC % Seg Neutrophils # Seg Neutrophils # Man Lymphocytes # (Manual) Monocytes # (Manual) Basophils # (Manual) PT INR APTT ABG pH POC ABG pO2 ABG Hemoglobin ABG Oxyhemoglobin ABG Sodium ABG Potassium ABG Glucose VBG pH Carboxyhemoglobin Sodium Potassium Chloride Carbon Dioxide BUN Creatinine Glucose POC Glucose 394 H Lactic Acid Calcium Phosphorus Magnesium AST ALT Total Creatine Kinase 580 H CK-MB (CK-2) Total Protein Albumin Free T4 Arterial Blood Glucose Arterial Blood Ionized Calcium Urine WBC (Auto) Urine Creatinine Ur Total Protein 24 Hr Urine Total Protein Coronavirus (PCR) Crossmatch See Detail 06/27/20 06/28/20 06/28/20 21:49 04:17 07:12 WBC 13.4 H RBC 2.49 L Hgb 6.6 L Hct 20.5 L MCV 83 L MCH 27 L MCHC RDW 15.7 H Lymph % (Auto) [place] % (Auto) [place] # (Auto) Seg Neutrophils % Seg Neuts % (Manual) 71.0 H Lymphocytes % (Manual) Monocytes % (Manual) Nucleated RBC % Seg Neutrophils # Seg Neutrophils # Man 9.5 H Lymphocytes # (Manual) Monocytes # (Manual) Basophils # (Manual) PT INR APTT ABG pH POC ABG pO2 ABG Hemoglobin ABG Oxyhemoglobin ABG Sodium ABG Potassium ABG Glucose VBG pH Carboxyhemoglobin Sodium Potassium Chloride Carbon Dioxide BUN Creatinine Glucose POC Glucose 227 H 201 H Lactic Acid Calcium Phosphorus Magnesium AST ALT Total Creatine Kinase CK-MB (CK-2) Total Protein Albumin Free T4 Arterial Blood Glucose Arterial Blood Ionized Calcium Urine WBC (Auto) Urine Creatinine Ur Total Protein 24 Hr Urine Total Protein Coronavirus (PCR) Crossmatch 06/28/20 06/28/20 06/28/20 07:12 07:12 16:12 WBC RBC Hgb Hct MCV MCH MCHC RDW Lymph % (Auto) [place] % (Auto) [place] # (Auto) Seg Neutrophils % Seg Neuts % (Manual) Lymphocytes % (Manual) Monocytes % (Manual) Nucleated RBC % Seg Neutrophils # Seg Neutrophils # Man Lymphocytes # (Manual) Monocytes # (Manual) Basophils # (Manual) PT INR APTT ABG pH POC ABG pO2 ABG Hemoglobin ABG Oxyhemoglobin ABG Sodium ABG Potassium ABG Glucose VBG pH Carboxyhemoglobin Sodium Potassium 3.1 L Chloride Carbon Dioxide 33 H BUN 43 H Creatinine 3.4 H Glucose 261 H POC Glucose 143 H Lactic Acid Calcium Phosphorus Magnesium AST ALT Total Creatine Kinase 418 H CK-MB (CK-2) Total Protein Albumin Free T4 Arterial Blood Glucose Arterial Blood Ionized Calcium Urine WBC (Auto) Urine Creatinine Ur Total Protein 24 Hr Urine Total Protein Coronavirus (PCR) Crossmatch 06/28/20 06/28/20 06/28/20 20:48 23:22 23:22 WBC 12.7 H RBC 2.41 L Hgb 6.6 L Hct 20.0 L MCV 83 L MCH 27 L MCHC RDW 16.0 H Lymph % (Auto) [place] % (Auto) 9.7 H [place] # (Auto) 1.2 H Seg Neutrophils % Seg Neuts % (Manual) Lymphocytes % (Manual) Monocytes % (Manual) Nucleated RBC % Seg Neutrophils # 8.8 H Seg Neutrophils # Man Lymphocytes # (Manual) Monocytes # (Manual) Basophils # (Manual) PT INR APTT ABG pH POC ABG pO2 ABG Hemoglobin ABG Oxyhemoglobin ABG Sodium ABG Potassium ABG Glucose VBG pH Carboxyhemoglobin Sodium Potassium Chloride Carbon Dioxide BUN Creatinine Glucose POC Glucose 300 H Lactic Acid Calcium Phosphorus Magnesium AST ALT Total Creatine Kinase 341 H CK-MB (CK-2) Total Protein Albumin Free T4 Arterial Blood Glucose Arterial Blood Ionized Calcium Urine WBC (Auto) Urine Creatinine Ur Total Protein 24 Hr Urine Total Protein Coronavirus (PCR) Crossmatch 06/29/20 06/29/20 06/29/20 05:09 07:33 07:33 WBC 11.8 H RBC 2.39 L Hgb 6.4 L Hct 19.7 L* MCV 82 L MCH 27 L MCHC RDW 15.9 H Lymph % (Auto) [place] % (Auto) 11.4 H [place] # (Auto) 1.4 H Seg Neutrophils % Seg Neuts % (Manual) Lymphocytes % (Manual) Monocytes % (Manual) Nucleated RBC % Seg Neutrophils # 8.2 H Seg Neutrophils # Man Lymphocytes # (Manual) Monocytes # (Manual) Basophils # (Manual) PT INR APTT ABG pH POC ABG pO2 ABG Hemoglobin ABG Oxyhemoglobin ABG Sodium ABG Potassium ABG Glucose VBG pH Carboxyhemoglobin Sodium Potassium 3.1 L Chloride Carbon Dioxide 31 H BUN 30 H Creatinine 2.6 H Glucose 204 H POC Glucose 193 H Lactic Acid Calcium Phosphorus Magnesium AST ALT Total Creatine Kinase CK-MB (CK-2) Total Protein Albumin Free T4 Arterial Blood Glucose Arterial Blood Ionized Calcium Urine WBC (Auto) Urine Creatinine Ur Total Protein 24 Hr Urine Total Protein Coronavirus (PCR) Crossmatch 06/29/20 06/29/20 06/29/20 07:33 10:43 11:14 WBC RBC Hgb Hct MCV MCH MCHC RDW Lymph % (Auto) [place] % (Auto) [place] # (Auto) Seg Neutrophils % Seg Neuts % (Manual) Lymphocytes % (Manual) Monocytes % (Manual) Nucleated RBC % Seg Neutrophils # Seg Neutrophils # Man Lymphocytes # (Manual) Monocytes # (Manual) Basophils # (Manual) PT INR APTT ABG pH POC ABG pO2 ABG Hemoglobin ABG Oxyhemoglobin ABG Sodium ABG Potassium ABG Glucose VBG pH Carboxyhemoglobin Sodium Potassium Chloride Carbon Dioxide BUN Creatinine Glucose POC Glucose 324 H Lactic Acid Calcium Phosphorus Magnesium AST ALT Total Creatine Kinase 290 H CK-MB (CK-2) Total Protein Albumin Free T4 Arterial Blood Glucose Arterial Blood Ionized Calcium Urine WBC (Auto) Urine Creatinine Ur Total Protein 24 Hr Urine Total Protein Coronavirus (PCR) Positive A Crossmatch 06/29/20 06/29/20 06/30/20 17:07 22:36 07:42 WBC RBC Hgb Hct MCV MCH MCHC RDW Lymph % (Auto) [place] % (Auto) [place] # (Auto) Seg Neutrophils % Seg Neuts % (Manual) Lymphocytes % (Manual) Monocytes % (Manual) Nucleated RBC % Seg Neutrophils # Seg Neutrophils # Man Lymphocytes # (Manual) Monocytes # (Manual) Basophils # (Manual) PT INR APTT ABG pH POC ABG pO2 ABG Hemoglobin ABG Oxyhemoglobin ABG Sodium ABG Potassium ABG Glucose VBG pH Carboxyhemoglobin Sodium Potassium Chloride Carbon Dioxide BUN Creatinine Glucose POC Glucose 262 H 316 H 226 H Lactic Acid Calcium Phosphorus Magnesium AST ALT Total Creatine Kinase CK-MB (CK-2) Total Protein Albumin Free T4 Arterial Blood Glucose Arterial Blood Ionized Calcium Urine WBC (Auto) Urine Creatinine Ur Total Protein 24 Hr Urine Total Protein Coronavirus (PCR) Crossmatch 06/30/20 06/30/20 06/30/20 08:16 08:16 11:59 WBC RBC Hgb 10.6 L D Hct 31.7 L D MCV MCH MCHC RDW 15.4 H Lymph % (Auto) [place] % (Auto) [place] # (Auto) Seg Neutrophils % Seg Neuts % (Manual) Lymphocytes % (Manual) Monocytes % (Manual) 10.0 H Nucleated RBC % 1.0 H Seg Neutrophils # Seg Neutrophils # Man Lymphocytes # (Manual) Monocytes # (Manual) 1.0 H Basophils # (Manual) PT INR APTT ABG pH POC ABG pO2 ABG Hemoglobin ABG Oxyhemoglobin ABG Sodium ABG Potassium ABG Glucose VBG pH Carboxyhemoglobin Sodium Potassium 3.3 L Chloride Carbon Dioxide BUN 34 H Creatinine 2.4 H Glucose 238 H POC Glucose 220 H Lactic Acid Calcium Phosphorus Magnesium AST ALT Total Creatine Kinase CK-MB (CK-2) Total Protein Albumin Free T4 Arterial Blood Glucose Arterial Blood Ionized Calcium Urine WBC (Auto) Urine Creatinine Ur Total Protein 24 Hr Urine Total Protein Coronavirus (PCR) Crossmatch 06/30/20 17:31 WBC RBC Hgb Hct MCV MCH MCHC RDW Lymph % (Auto) [place] % (Auto) [place] # (Auto) Seg Neutrophils % Seg Neuts % (Manual) Lymphocytes % (Manual) Monocytes % (Manual) Nucleated RBC % Seg Neutrophils # Seg Neutrophils # Man Lymphocytes # (Manual) Monocytes # (Manual) Basophils # (Manual) PT INR APTT ABG pH POC ABG pO2 ABG Hemoglobin ABG Oxyhemoglobin ABG Sodium ABG Potassium ABG Glucose VBG pH Carboxyhemoglobin Sodium Potassium Chloride Carbon Dioxide BUN Creatinine Glucose POC Glucose 211 H Lactic Acid Calcium Phosphorus Magnesium AST ALT Total Creatine Kinase CK-MB (CK-2) Total Protein Albumin Free T4 Arterial Blood Glucose Arterial Blood Ionized Calcium Urine WBC (Auto) Urine Creatinine Ur Total Protein 24 Hr Urine Total Protein Coronavirus (PCR) Crossmatch Allied health notes reviewed: nursing
[2020-07-01 05:19] LABS: Basophils % (Auto) 0.3 % (0.0-1.8); Eosinophils # (Auto) 0.1 K/mm3 (0.0-0.4); Eosinophils % (Auto) 0.7 % (0.0-4.3); Hematocrit 28.7 % (35.5-45.6); Hemoglobin 9.6 gm/dl (11.8-15.2); Lymphocytes # (Auto) 2.2 K/mm3 (1.2-5.4); Lymphocytes % (Auto) 21.2 % (13.4-35.0); Mean Corpuscular HGB Conc 34 % (32-34); Mean Corpuscular Volume 84 fl (84-94); Monocytes # (Auto) 1.3 K/mm3 (0.0-0.8); Monocytes % (Auto) 11.9 % (0.0-7.3); Platelet Count 257 K/mm3 (140-440); Red Blood Count 3.41 M/mm3 (3.65-5.03); Red Cell Distribution Width 15.4 % (13.2-15.2)
[2020-07-01 05:37] LABS: Calcium 8.9 mg/dL (8.4-10.2)
--- NOTE | 2020-07-01 08:16 | Progress Note ---
Assessment and Plan Assessment and plan: Sepsis Sepsis resolved COVID-19 infection toxic metabolic encephalopathy Resolved, continue current care, IDDM DKA resolved, sliding-scale insulin therapy, Accu-Chek, hypoglycemia protocol Insulin changed to Humulin 70/30 20 units twice a day for better control and compliance Rhabdomyolysis IV fluid resuscitation therapy, monitor urine output every shift, CK level improving today. Repeat CK in a.m. Creatinine kinase every 12 hours reordered Improved End stage renal disease Hemodialysis catheter placed as per vascular surgery team, dialysis as per renal team. Avoid nephrotoxic agents. Nephrology recommends outpatient hemodialysis. Covid screening was positive Anemia of ESRD Patient has received 2 units PRBCs DVT prophylaxis SCD to bilateral lower extremities while in bed, prophylactic anticoagulation 07/01/2020. Awaiting for outpatient hemodialysis arrangements. Problematic placement because patient tested Covid positive. Case management following closely. - Patient Problems (1) YUNI (acute kidney injury) Current Visit: Yes Status: Acute (2) DKA (diabetic ketoacidoses) Current Visit: Yes Status: Acute Qualifiers: Diabetes mellitus complication detail: with coma (3) End stage renal disease Current Visit: Yes Status: Acute (4) Rhabdomyolysis Current Visit: Yes Status: Acute Qualifiers: Encounter type: initial encounter (5) Sepsis Current Visit: Yes Status: Acute (6) Toxic metabolic encephalopathy Current Visit: Yes Status: Acute History Interval history: No new issues overnight Hospitalist Physical - Constitutional Vitals: Temp Pulse Resp BP Pulse Ox 98.3 F 98 H 18 114/76 91 07/01/20 04:04 07/01/20 04:04 07/01/20 04:04 07/01/20 04:04 07/01/20 04:04 General appearance: Present: no acute distress, well-nourished - EENT Eyes: Present: PERRL, EOM intact ENT: hearing intact, clear oral mucosa, dentition normal - Neck Neck: Present: supple, normal ROM - Respiratory Respiratory effort: normal Respiratory: bilateral: CTA - Cardiovascular Rhythm: regular Heart Sounds: Present: S1 & S2. Absent: gallop, rub - Extremities Extremities: no ischemia, No edema, Full ROM - Abdominal General gastrointestinal: soft, non-tender, non-distended, normal bowel sounds - Integumentary Integumentary: Present: clear, warm, dry - Neurologic Neurologic: CNII-XII intact, moves all extremities HEART Score - HEART Score Troponin: Troponin T < 0.010 ng/mL (0.00-0.029) 06/17/20 11:24 Results - Labs CBC & Chem 7: 07/01/20 04:45 07/01/20 04:45 Labs: Laboratory Last Values WBC 10.6 K/mm3 (4.5-11.0) 07/01/20 04:45 RBC 3.41 M/mm3 (3.65-5.03) L 07/01/20 04:45 Hgb 9.6 gm/dl (11.8-15.2) L 07/01/20 04:45 Hct 28.7 % (35.5-45.6) L 07/01/20 04:45 MCV 84 fl (84-94) 07/01/20 04:45 MCH 28 pg (28-32) 07/01/20 04:45 MCHC 34 % (32-34) 07/01/20 04:45 RDW 15.4 % (13.2-15.2) H 07/01/20 04:45 Plt Count 257 K/mm3 (140-440) 07/01/20 04:45 Lymph % (Auto) 21.2 % (13.4-35.0) 07/01/20 04:45 [place] % (Auto) 11.9 % (0.0-7.3) H 07/01/20 04:45 Eos % (Auto) 0.7 % (0.0-4.3) 07/01/20 04:45 Baso % (Auto) 0.3 % (0.0-1.8) 07/01/20 04:45 Lymph # (Auto) 2.2 K/mm3 (1.2-5.4) 07/01/20 04:45 [place] # (Auto) 1.3 K/mm3 (0.0-0.8) H 07/01/20 04:45 Eos # (Auto) 0.1 K/mm3 (0.0-0.4) 07/01/20 04:45 Baso # (Auto) 0.0 K/mm3 (0.0-0.1) 07/01/20 04:45 Add Manual Diff Complete 06/30/20 08:16 Total Counted 100 06/30/20 08:16 Seg Neutrophils % 65.9 % (40.0-70.0) 07/01/20 04:45 Seg Neuts % (Manual) 69.0 % (40.0-70.0) 06/30/20 08:16 Band Neutrophils % 2.0 % 06/30/20 08:16 Lymphocytes % (Manual) 16.0 % (13.4-35.0) 06/30/20 08:16 Monocytes % (Manual) 10.0 % (0.0-7.3) H 06/30/20 08:16 Eosinophils % (Manual) 1.0 % (0.0-4.3) 06/28/20 07:12 Basophils % (Manual) 1.0 % (0.0-1.8) 06/27/20 07:10 Metamyelocytes % 3.0 % 06/30/20 08:16 Myelocytes % 3.0 % 06/28/20 07:12 Nucleated RBC % 1.0 % (0.0-0.9) H 06/30/20 08:16 Seg Neutrophils # 6.9 K/mm3 (1.8-7.7) 07/01/20 04:45 Seg Neutrophils # Man 7.0 K/mm3 (1.8-7.7) 06/30/20 08:16 Band Neutrophils # 0.2 K/mm3 06/30/20 08:16 Lymphocytes # (Manual) 1.6 K/mm3 (1.2-5.4) 06/30/20 08:16 Abs React Lymphs (Man) 0.0 K/mm3 06/30/20 08:16 Monocytes # (Manual) 1.0 K/mm3 (0.0-0.8) H 06/30/20 08:16 Eosinophils # (Manual) 0.0 K/mm3 (0.0-0.4) 06/30/20 08:16 Basophils # (Manual) 0.0 K/mm3 (0.0-0.1) 06/30/20 08:16 Metamyelocytes # 0.3 K/mm3 06/30/20 08:16 Myelocytes # 0.0 K/mm3 06/30/20 08:16 Promyelocytes # 0.0 K/mm3 06/30/20 08:16 Blast Cells # 0.0 K/mm3 06/30/20 08:16 WBC Morphology Not Reportable 06/30/20 08:16 Hypersegmented Neuts Not Reportable 06/30/20 08:16 Hyposegmented Neuts Not Reportable 06/30/20 08:16 Hypogranular Neuts Not Reportable 06/30/20 08:16 Smudge Cells Not Reportable 06/30/20 08:16 Toxic Granulation Not Reportable 06/30/20 08:16 Toxic Vacuolation Not Reportable 06/30/20 08:16 Dohle Bodies Not Reportable 06/30/20 08:16 Pelger-Huet Anomaly Not Reportable 06/30/20 08:16 Seth Rods Not Reportable 06/30/20 08:16 Platelet Estimate Consistent w auto 06/30/20 08:16 Clumped Platelets Not Reportable 06/30/20 08:16 Plt Clumps, EDTA Not Reportable 06/30/20 08:16 Large Platelets Not Reportable 06/30/20 08:16 Giant Platelets Not Reportable 06/30/20 08:16 Platelet Satelliting Not Reportable 06/30/20 08:16 Plt Morphology Comment Not Reportable 06/30/20 08:16 RBC Morphology Not Reportable 06/30/20 08:16 Dimorphic RBCs Not Reportable 06/30/20 08:16 Polychromasia Few 06/30/20 08:16 Hypochromasia Not Reportable 06/30/20 08:16 Poikilocytosis Not Reportable 06/30/20 08:16 Anisocytosis 1+ 06/30/20 08:16 Microcytosis Not Reportable 06/30/20 08:16 Macrocytosis Not Reportable 06/30/20 08:16 Spherocytes Not Reportable 06/30/20 08:16 Pappenheimer Bodies Not Reportable 06/30/20 08:16 Sickle Cells Not Reportable 06/30/20 08:16 Target Cells Not Reportable 06/30/20 08:16 Tear Drop Cells Not Reportable 06/30/20 08:16 Ovalocytes Not Reportable 06/30/20 08:16 Helmet Cells Not Reportable 06/30/20 08:16 [place] Bodies Not Reportable 06/30/20 08:16 [place] Rings Not Reportable 06/30/20 08:16 [place] Cells Not Reportable 06/30/20 08:16 Bite Cells Not Reportable 06/30/20 08:16 Crenated Cell Not Reportable 06/30/20 08:16 Elliptocytes Not Reportable 06/30/20 08:16 Acanthocytes (Spur) Not Reportable 06/30/20 08:16 Rouleaux Not Reportable 06/30/20 08:16 Hemoglobin C Crystals Not Reportable 06/30/20 08:16 Schistocytes Not Reportable 06/30/20 08:16 Malaria parasites Not Reportable 06/30/20 08:16 Mick Bodies Not Reportable 06/30/20 08:16 Hem Pathologist Commnt No 06/30/20 08:16 PT 22.1 Sec. (12.2-14.9) H 06/17/20 11:24 INR 1.92 (0.87-1.13) H 06/17/20 11:24 APTT 38.9 Sec. (24.2-36.6) H 06/17/20 11:24 ABG pH 7.545 (7.320-7.450) H 06/24/20 16:17 POC ABG pCO2 34.2 mmHg (32.0-48.0) 06/24/20 16:17 POC ABG pO2 68.9 mmHg (83-108) L 06/24/20 16:17 POC ABG HCO3 28.9 06/24/20 16:17 POC ABG Base Excess 6.0 06/24/20 16:17 ABG Hemoglobin 6.8 (12.0-17.5) L 06/24/20 16:17 ABG Oxyhemoglobin 92.4 (94-98) L 06/24/20 16:17 ABG Methemoglobin 0.3 (0.0-1.5) 06/24/20 16:17 ABG Sodium 135.1 mmol/L (136.0-145.0) L 06/24/20 16:17 ABG Potassium 3.0 mmol/L (3.40-4.50) L 06/24/20 16:17 ABG Chloride 101.0 mmol/L (98-107) 06/24/20 16:17 ABG Glucose 199 mg/dL (65-95) H 06/24/20 16:17 VBG pH 7.123 (7.320-7.420) L* 06/17/20 11:24 Carboxyhemoglobin 1.7 (0.5-1.5) H 06/24/20 16:17 FiO2 21 06/24/20 16:17 Sodium 145 mmol/L (137-145) 07/01/20 04:45 Potassium 3.1 mmol/L (3.6-5.0) L 07/01/20 04:45 Chloride 104.7 mmol/L (98-107) 07/01/20 04:45 Carbon Dioxide 28 mmol/L (22-30) 07/01/20 04:45 Anion Gap 15 mmol/L 07/01/20 04:45 BUN 32 mg/dL (9-20) H 07/01/20 04:45 Creatinine 2.5 mg/dL (0.8-1.3) H 07/01/20 04:45 Estimated GFR 34 ml/min 07/01/20 04:45 BUN/Creatinine Ratio 13 % 07/01/20 04:45 Glucose 127 mg/dL (75-100) H 07/01/20 04:45 POC Glucose 142 mg/dL (70-105) H 07/01/20 07:37 Lactic Acid 1.40 mmol/L (0.7-2.0) 06/20/20 05:08 Calcium 8.9 mg/dL (8.4-10.2) 07/01/20 04:45 Phosphorus 6.70 mg/dL (2.5-4.5) H 06/20/20 19:43 Magnesium 4.50 mg/dL (1.7-2.3) H 06/17/20 15:33 Total Bilirubin 0.60 mg/dL (0.1-1.2) 06/20/20 14:47 AST 149 units/L (5-40) H 06/20/20 14:47 ALT 89 units/L (7-56) H 06/20/20 14:47 Alkaline Phosphatase 60 units/L (35-129) 06/20/20 14:47 Ammonia 56.0 umol/L (25-60) 06/17/20 11:24 Total Creatine Kinase 290 units/L (55-170) H 06/29/20 07:33 CK-MB (CK-2) 7.9 ng/mL (0.0-4.0) H 06/17/20 11:24 CK-MB (CK-2) Rel Index 0.1 (0-4) 06/17/20 11:24 Troponin T < 0.010 ng/mL (0.00-0.029) 06/17/20 11:24 Total Protein 5.9 g/dL (6.3-8.2) L D 06/20/20 14:47 Albumin 2.3 g/dL (3.9-5) L 06/20/20 14:47 Albumin/Globulin Ratio 0.6 % 06/20/20 14:47 Procalcitonin 8.18 ng/mL (<0.15) 06/18/20 21:36 TSH 0.914 mlU/mL (0.270-4.200) 06/17/20 11:24 Free T4 1.65 ng/dL (0.76-1.46) H 06/17/20 11:24 PTH Intact 25.17 pg/mL (15-65) 06/25/20 08:30 Arterial Blood Glucose 199 mg/dL (65-95) H 06/24/20 16:17 Arterial Blood Ionized Calcium 4.3 mg/dL (4.6-5.3) L 06/24/20 16:17 Urine Color Yellow (Yellow) 06/17/20 Unknown Urine Turbidity Slightly-cloudy (Clear) 06/17/20 Unknown Urine pH 5.0 (5.0-7.0) 06/17/20 Unknown Ur Specific [place] 1.022 (1.003-1.030) 06/17/20 Unknown Urine Protein 100 mg/dl mg/dL (Negative) 06/17/20 Unknown Urine Glucose (UA) >=500 mg/dL (Negative) 06/17/20 Unknown Urine Ketones Neg mg/dL (Negative) 06/17/20 Unknown Urine Blood Lg (Negative) 06/17/20 Unknown Urine Nitrite Neg (Negative) 06/17/20 Unknown Urine Bilirubin Neg (Negative) 06/17/20 Unknown Urine Urobilinogen < 2.0 mg/dL (<2.0) 06/17/20 Unknown Ur Leukocyte Esterase Neg (Negative) 06/17/20 Unknown Urine WBC (Auto) 7.0 /HPF (0.0-6.0) H 06/17/20 Unknown Urine RBC (Auto) 5.0 /HPF (0.0-6.0) 06/17/20 Unknown U Epithel Cells (Auto) < 1.0 /HPF (0-13.0) 06/17/20 Unknown Urine Mucus Few /HPF 06/17/20 Unknown Urine Total Volume 1400 ml 06/25/20 16:58 Urine Creatinine 73.8 mg/dL (0.1-20.0) H 06/25/20 16:58 Ur Creatinine 24 Hour 1.0 (0.8-2.8) 06/25/20 16:58 Ur Total Protein 24 Hr 644.00 mg/dL (2-200) H 06/25/20 16:58 Urine Total Protein 46 mg/dL (5-11.8) H 06/25/20 16:58 Urine Opiates Screen Presumptive negative 06/19/20 19:00 Urine Methadone Screen Presumptive negative 06/19/20 19:00 Ur Barbiturates Screen Presumptive negative 06/19/20 19:00 Ur Phencyclidine Scrn Presumptive negative 06/19/20 19:00 Ur Amphetamines Screen Presumptive negative 06/19/20 19:00 U Benzodiazepines Scrn Presumptive negative 06/19/20 19:00 Urine Cocaine Screen Presumptive negative 06/19/20 19:00 U Marijuana (THC) Screen Presumptive negative 06/19/20 19:00 Drugs of Abuse Note Disclamer 06/19/20 19:00 Plasma/Serum Alcohol < 0.01 % (0-0.07) 06/17/20 11:24 Coronavirus (PCR) Positive (Negative) A 06/29/20 10:43 Hepatitis A IgM Ab Non-reactive (NonReactive) 06/20/20 19:43 Hep Bs Antigen Non-reactive (Negative) 06/20/20 19:43 Hep B Core IgM Ab Non-reactive (NonReactive) 06/20/20 19:43 Hepatitis C Antibody Non-reactive (NonReactive) 06/20/20 19:43 Blood Type B POSITIVE 06/27/20 10:54 Antibody Screen Negative 06/27/20 10:54 Crossmatch See Detail 06/27/20 10:54 Garcia/IV: Voiding Method Urinal IV Catheter Type [Left Forearm INT / Saline Lock ] IV Catheter Type [Left Peripheral IV Antecubital] IV Catheter Type [Right VAS Cath Internal Jugular] IV Catheter Type [Left Hand] INT / Saline Lock IV Catheter Type [Right INT / Saline Lock Antecubital] Active Medications - Current Medications Current Medications: Generic Name Dose Route Start Last Admin Trade Name Freq PRN Reason Stop Dose Admin Acetaminophen 650 mg 06/17/20 13:40 06/25/20 15:09 Acetaminophen 325 Mg Tab PO 650 mg Q6H PRN Administration Pain, Mild (1-3) Albuterol 2.5 mg 06/17/20 13:40 Albuterol 2.5 Mg/3 Ml Nebu IH Q3HRT PRN Shortness Of Breath Dextrose 50 ml 06/19/20 15:28 Dextrose 50% In Water (25gm) 50 Ml Syringe IV Q30MIN PRN Hypoglycemia Protocol Epoetin Germán 20,000 unit 06/25/20 08:16 Epoetin Germán 20,000 Unit/1 Ml Inj IV MARIELLE PRN hemodialysis Famotidine 20 mg 06/19/20 10:00 06/30/20 09:16 Famotidine 20 Mg Tab PO 20 mg QDAY JERMAINE Administration Heparin Sodium (Porcine) 5,000 unit 06/17/20 22:00 06/30/20 21:07 Heparin 5,000 Unit/1 Ml Vial SUB-Q 5,000 unit Q12HR JERMAINE Administration Hydromorphone HCl 0.25 mg 06/17/20 13:40 06/22/20 23:58 Hydromorphone 1 Mg/1 Ml Inj IV 0.25 mg Q4H PRN Administration Pain, Moderate (4-6) Sodium Chloride 100 mls @ 999 mls/hr 06/24/20 12:00 Nacl 0.9% IV MARIELLE PRN Hypotension Insulin Human Isoph/Insulin Regular 20 unit 06/28/20 08:00 06/30/20 17:47 Insulin Nph/Regular 70/30 Inj SUB-Q 20 unit BIDDIAB JERMAINE Administration Insulin Human Lispro 0 unit 06/29/20 11:30 06/30/20 22:11 Insulin Lispro 100 Unit/Ml Vial 3 Ml SUB-Q 3 unit ACHS JERMAINE Administration Protocol Sodium Bicarbonate 650 mg 06/29/20 22:00 06/30/20 21:07 Sodium Bicarbonate 650 Mg Tab PO 650 mg BID JERMAINE Administration Sodium Chloride 10 ml 06/17/20 22:00 06/30/20 21:07 Sodium Chloride 0.9% 10 Ml Flush Syringe IV 10 ml BID JERMAINE Administration Sodium Chloride 10 ml 06/17/20 13:40 Sodium Chloride 0.9% 10 Ml Flush Syringe IV PRN PRN LINE FLUSH Nutrition/Malnutrition Assess - Dietary Evaluation Nutrition/Malnutrition Findings: Nutrition Notes Start: 06/24/20 12:21 Freq: Status: Active Protocol: Document 06/24/20 12:21 LM (Rec: 06/24/20 12:24 LM [id number]) Nutrition Notes Current Diagnosis Acute Kidney Injury,CKD (stage V CKD),Diabetes,Sepsis Other Pertinent Diagnosis Rhabdomyolysis Current Diet Renal Labs/Tests BUN 102 Cr 7.1 BG 324 Pertinent Medications Humalog Height 5 ft 10 in Weight 82.6 kg [place] Body Weight (kg) 75.45 BMI 26.1 Weight Status Overweight Subjective/Other Information Screen for LOS. Pt ate 75% of breakfast this AM and reports eating well INTAKE MAN with no wt loss. Nutrition Intervention Revisit per MD consult or patient Sign Off request:
[2020-07-01] MEDS: INSULIN LISPRO 100 UNIT/ML VIAL 3 mL SUB-Q SCH ×4 (08:53→22:17)
[2020-07-01] MEDS: INSULIN NPH/REGULAR 70/30 INJ SUB-Q SCH ×2 (09:00→17:09)
[2020-07-01] MEDS: FAMOTIDINE 20 MG TAB PO SCH (10:24)
[2020-07-01] MEDS: SODIUM BICARBONATE 650 MG TAB PO SCH ×2 (10:24→22:14)
[2020-07-01] MEDS: HEPARIN 5,000 UNIT/1 ML VIAL SUB-Q SCH ×2 (10:25→22:15)
--- NOTE | 2020-07-01 13:19 | Progress Note ---
Subjective Principal diagnosis: DKA; Ac encephalopathy; Severe sepsis; Rhabdomyolysis; YUNI. Interval history: Time of evaluation 8:45 in the morning Patient was seen today for follow-up of multiple renal related issues, has been initiated on renal replacement therapy due to acute kidney injury in the setting of sepsis as well as rhabdomyolysis Events of 24 hours vitals labs intake output medications were reviewed Past medical history: Reviewed Family history: Reviewed Social history: Reviewed Allergies: Reviewed Physical examination: Vitals: Reviewed HEENT: No pallor or icterus oral mucosa moist Neck: Supple no JVD no thyromegaly Chest: Bilateral clear to auscultation anteriorly Heart: Regular rate and rhythm S1-S2 heard no S3-S4 Abdomen: Soft nontender no voluntary guarding rigidity rebound Extremity: Dry skin less than 1+ peripheral edema Psychiatric: No evidence of agitation and aggression noted Dermatology: No petechial rashes Labs and x-rays: Reviewed from today Assessment and plan Acute kidney injury: Patient's creatinine appears to be relatively stable continue to monitor intake and output #As of today creatinine is 2.5 potassium 3.1, hemoglobin currently 9.6, creatinine was 2.6 as of 06/29/2020 Renal ultrasonogram shows no significant abnormality There is no acute emergent indication for renal phase 1 therapy at this time,, discussed with dialysis nurse Admitted with uremia, hypernatremia, hyperkalemia, severe rhabdomyolysis as well as encephalopathy in the setting of DKA and sepsis Avoid any nephrotoxic medication continue to monitor renal function periodically We'll continue to follow and make recommendation for renal standpoint Objective - Vital Signs Vital signs: Vital Signs - 12hr 07/01/20 07/01/20 04:04 10:00 Temperature 98.3 F Pulse Rate 98 H Respiratory 18 18 Rate Blood Pressure 114/76 O2 Sat by Pulse 91 95 Oximetry - Lab 07/01/20 04:45 07/01/20 04:45 Most recent lab results ABG pH 7.545 (7.320-7.450) H 06/24/20 16:17 Calcium 8.9 mg/dL (8.4-10.2) 07/01/20 04:45 Phosphorus 6.70 mg/dL (2.5-4.5) H 06/20/20 19:43 Magnesium 4.50 mg/dL (1.7-2.3) H 06/17/20 15:33 Urine Creatinine 73.8 mg/dL (0.1-20.0) H 06/25/20 16:58 Ur Total Protein 24 Hr 644.00 mg/dL (2-200) H 06/25/20 16:58 Urine Total Protein 46 mg/dL (5-11.8) H 06/25/20 16:58 Medications & Allergies - Medications Allergies/Adverse Reactions: Allergies No Known Allergies Allergy (Unverified 06/21/20 20:38) Home Medications: Home Medications Medication Instructions Recorded Confirmed Last Taken Type Atenolol 50 mg PO DAILY #30 06/29/20 Unknown Rx Epoetin Germán 20,000 Unit [Procrit] 20,000 unit IV MARIELLE PRN vial 06/29/20 Unknown Rx Insulin Degludec [Tresiba 52 unit SQ QHS 30 Days 06/29/20 Unknown Rx Flextouch U-200] Insulin Lispro [Humalog Kwikpen 15 units SQ AC 30 Days 06/29/20 Unknown Rx 200 UNITS/ML] Insulin NPH/Regular [NovoLIN 70/30] 20 unit SUB-Q BIDDIAB 30 Days 06/29/20 Unknown Rx units Lisinopril [Zestril] 10 mg PO DAILY #30 06/29/20 Unknown Rx Semaglutide [Ozempic] 0.25 mg SQ 1XW 30 Days 06/29/20 Unknown Rx Simvastatin 40 mg PO DAILY #30 06/29/20 Unknown Rx Sodium Bicarbonate 1,300 mg PO BID #60 tablet 06/29/20 Unknown Rx Active Medications: Generic Name Dose Route Start Last Admin Trade Name Freq PRN Reason Stop Dose Admin Acetaminophen 650 mg 06/17/20 13:40 06/25/20 15:09 Acetaminophen 325 Mg Tab PO 650 mg Q6H PRN Administration Pain, Mild (1-3) Albuterol 2.5 mg 06/17/20 13:40 Albuterol 2.5 Mg/3 Ml Nebu IH Q3HRT PRN Shortness Of Breath Dextrose 50 ml 06/19/20 15:28 Dextrose 50% In Water (25gm) 50 Ml Syringe IV Q30MIN PRN Hypoglycemia Protocol Epoetin Germán 20,000 unit 06/25/20 08:16 Epoetin Germán 20,000 Unit/1 Ml Inj IV MARIELLE PRN hemodialysis Famotidine 20 mg 06/19/20 10:00 07/01/20 10:24 Famotidine 20 Mg Tab PO 20 mg QDAY JERMAINE Administration Heparin Sodium (Porcine) 5,000 unit 06/17/20 22:00 07/01/20 10:25 Heparin 5,000 Unit/1 Ml Vial SUB-Q 5,000 unit Q12HR JERMAINE Administration Hydromorphone HCl 0.25 mg 06/17/20 13:40 06/22/20 23:58 Hydromorphone 1 Mg/1 Ml Inj IV 0.25 mg Q4H PRN Administration Pain, Moderate (4-6) Sodium Chloride 100 mls @ 999 mls/hr 06/24/20 12:00 Nacl 0.9% IV MARIELLE PRN Hypotension Insulin Human Isoph/Insulin Regular 20 unit 06/28/20 08:00 07/01/20 09:00 Insulin Nph/Regular 70/30 Inj SUB-Q 20 unit BIDDIAB JERMAINE Administration Insulin Human Lispro 0 unit 06/29/20 11:30 07/01/20 13:10 Insulin Lispro 100 Unit/Ml Vial 3 Ml SUB-Q 4 unit ACHS JERMAINE Administration Protocol Sodium Bicarbonate 650 mg 06/29/20 22:00 07/01/20 10:24 Sodium Bicarbonate 650 Mg Tab PO 650 mg BID JERMAINE Administration Sodium Chloride 10 ml 06/17/20 22:00 07/01/20 10:25 Sodium Chloride 0.9% 10 Ml Flush Syringe IV 10 ml BID JERMAINE Administration Sodium Chloride 10 ml 06/17/20 13:40 Sodium Chloride 0.9% 10 Ml Flush Syringe IV PRN PRN LINE FLUSH
[2020-07-01] MEDS ORDERED: POTASSIUM CHLORIDE ER 20 MEQ TAB PO ONE (20:30)
[2020-07-02 06:23] LABS: Basophils % (Auto) 0.4 % (0.0-1.8); Eosinophils # (Auto) 0.1 K/mm3 (0.0-0.4); Eosinophils % (Auto) 0.8 % (0.0-4.3); Hematocrit 26.8 % (35.5-45.6); Lymphocytes # (Auto) 2.4 K/mm3 (1.2-5.4); Lymphocytes % (Auto) 22.4 % (13.4-35.0); Mean Corpuscular HGB Conc 34 % (32-34); Mean Corpuscular Volume 84 fl (84-94); Monocytes # (Auto) 1.2 K/mm3 (0.0-0.8); Monocytes % (Auto) 11.7 % (0.0-7.3); Platelet Count 249 K/mm3 (140-440); Red Blood Count 3.18 M/mm3 (3.65-5.03); Red Cell Distribution Width 15.6 % (13.2-15.2)
[2020-07-02 06:44] LABS: Calcium 8.7 mg/dL (8.4-10.2)
[2020-07-02] MEDS: INSULIN LISPRO 100 UNIT/ML VIAL 3 mL SUB-Q SCH ×4 (07:30→23:40)
[2020-07-02] MEDS: INSULIN NPH/REGULAR 70/30 INJ SUB-Q SCH ×2 (08:00→16:35)
--- NOTE | 2020-07-02 08:53 | Progress Note ---
Subjective Principal diagnosis: DKA; Ac encephalopathy; Severe sepsis; Rhabdomyolysis; YUNI. Interval history: Time of evaluation 11:30 AM Patient was evaluated today from renal standpoint but not physically examined due to patient tested positive for Covid 19 Urine output has not been documented for past 36 or more hours Events of 24 hours vitals labs intake output medications were reviewed Past medical history: Reviewed Family history: Reviewed Social history: Reviewed Allergies: Reviewed Physical examination: Vitals: Reviewed due to limited availability of PPE, and consideration strategy due to ongoing pandemic physical examination portion was reviewed from hospital medicine service Labs and x-rays: Reviewed from today Assessment and plan Acute kidney injury: Patient's creatinine appears to be relatively stable continue to monitor intake and output creatinine appears to be at 2.3 today which was 2.5 yesterday potassium borderline low consider replacement Patient will need strict intake and output monitoring, if patient is nonoliguric and renal function remains stable dialysis can be stopped altogether As of today there is no acute indication for renal replacement therapy we will continue to hold dialysis and monitor renal function, please replace the potassium level Case was also discussed with hospital medicine service attending physician If stable tomorrow without dialysis and urine output is satisfactory he can be discharged he does not need any outpatient dialysis at this time Admitted with uremia, hypernatremia, hyperkalemia, severe rhabdomyolysis as well as encephalopathy in the setting of DKA and sepsis Avoid any nephrotoxic medication continue to monitor renal function periodically We'll continue to follow and make recommendation for renal standpoint Objective - Vital Signs Vital signs: Vital Signs - 12hr 07/01/20 07/01/20 07/02/20 21:02 22:00 03:52 Temperature 98.8 F 98.5 F Pulse Rate 104 H 95 H Respiratory 18 18 18 Rate Blood Pressure 116/74 115/78 O2 Sat by Pulse 94 94 93 Oximetry - Lab 07/02/20 04:22 07/02/20 04:22 Most recent lab results ABG pH 7.545 (7.320-7.450) H 06/24/20 16:17 Calcium 8.7 mg/dL (8.4-10.2) 07/02/20 04:22 Phosphorus 6.70 mg/dL (2.5-4.5) H 06/20/20 19:43 Magnesium 4.50 mg/dL (1.7-2.3) H 06/17/20 15:33 Urine Creatinine 73.8 mg/dL (0.1-20.0) H 06/25/20 16:58 Ur Total Protein 24 Hr 644.00 mg/dL (2-200) H 06/25/20 16:58 Urine Total Protein 46 mg/dL (5-11.8) H 06/25/20 16:58 Medications & Allergies - Medications Allergies/Adverse Reactions: Allergies No Known Allergies Allergy (Unverified 06/21/20 20:38) Home Medications: Home Medications Medication Instructions Recorded Confirmed Last Taken Type Atenolol 50 mg PO DAILY #30 06/29/20 Unknown Rx Epoetin Germán 20,000 Unit [Procrit] 20,000 unit IV MARIELLE PRN vial 06/29/20 Unknown Rx Insulin Degludec [Tresiba 52 unit SQ QHS 30 Days 06/29/20 Unknown Rx Flextouch U-200] Insulin Lispro [Humalog Kwikpen 15 units SQ AC 30 Days 06/29/20 Unknown Rx 200 UNITS/ML] Insulin NPH/Regular [NovoLIN 70/30] 20 unit SUB-Q BIDDIAB 30 Days 06/29/20 Unknown Rx units Lisinopril [Zestril] 10 mg PO DAILY #30 06/29/20 Unknown Rx Semaglutide [Ozempic] 0.25 mg SQ 1XW 30 Days 06/29/20 Unknown Rx Simvastatin 40 mg PO DAILY #30 06/29/20 Unknown Rx Sodium Bicarbonate 1,300 mg PO BID #60 tablet 06/29/20 Unknown Rx Active Medications: Generic Name Dose Route Start Last Admin Trade Name Peterq PRN Reason Stop Dose Admin Acetaminophen 650 mg 06/17/20 13:40 06/25/20 15:09 Acetaminophen 325 Mg Tab PO 650 mg Q6H PRN Administration Pain, Mild (1-3) Albuterol 2.5 mg 06/17/20 13:40 Albuterol 2.5 Mg/3 Ml Nebu IH Q3HRT PRN Shortness Of Breath Dextrose 50 ml 06/19/20 15:28 Dextrose 50% In Water (25gm) 50 Ml Syringe IV Q30MIN PRN Hypoglycemia Protocol Epoetin Germán 20,000 unit 06/25/20 08:16 Epoetin Germán 20,000 Unit/1 Ml Inj IV MARIELLE PRN hemodialysis Famotidine 20 mg 06/19/20 10:00 07/01/20 10:24 Famotidine 20 Mg Tab PO 20 mg QDAY JERMAINE Administration Heparin Sodium (Porcine) 5,000 unit 06/17/20 22:00 07/01/20 22:15 Heparin 5,000 Unit/1 Ml Vial SUB-Q 5,000 unit Q12HR JERMAINE Administration Hydromorphone HCl 0.25 mg 06/17/20 13:40 06/22/20 23:58 Hydromorphone 1 Mg/1 Ml Inj IV 0.25 mg Q4H PRN Administration Pain, Moderate (4-6) Sodium Chloride 100 mls @ 999 mls/hr 06/24/20 12:00 Nacl 0.9% IV MARIELLE PRN Hypotension Insulin Human Isoph/Insulin Regular 20 unit 06/28/20 08:00 07/01/20 17:09 Insulin Nph/Regular 70/30 Inj SUB-Q 20 unit BIDDIAB JERMAINE Administration Insulin Human Lispro 0 unit 06/29/20 11:30 07/01/20 22:17 Insulin Lispro 100 Unit/Ml Vial 3 Ml SUB-Q 4 unit ACHS JERMAINE Administration Protocol Sodium Bicarbonate 650 mg 06/29/20 22:00 07/01/20 22:14 Sodium Bicarbonate 650 Mg Tab PO 650 mg BID JERMAINE Administration Sodium Chloride 10 ml 06/17/20 22:00 07/01/20 22:15 Sodium Chloride 0.9% 10 Ml Flush Syringe IV 10 ml BID JERMAINE Administration Sodium Chloride 10 ml 06/17/20 13:40 Sodium Chloride 0.9% 10 Ml Flush Syringe IV PRN PRN LINE FLUSH
--- NOTE | 2020-07-02 09:26 | Progress Note ---
Assessment and Plan Assessment and plan: Sepsis Sepsis resolved COVID-19 infection toxic metabolic encephalopathy Resolved, continue current care, IDDM DKA resolved, sliding-scale insulin therapy, Accu-Chek, hypoglycemia protocol Insulin changed to Humulin 70/30 20 units twice a day for better control and compliance Rhabdomyolysis IV fluid resuscitation therapy, monitor urine output every shift, CK level improving today. Repeat CK in a.m. Creatinine kinase every 12 hours reordered Improved End stage renal disease Hemodialysis catheter placed as per vascular surgery team, dialysis as per renal team. Avoid nephrotoxic agents. Nephrology recommends outpatient hemodialysis. Covid screening was positive Anemia of ESRD Patient has received 2 units PRBCs DVT prophylaxis SCD to bilateral lower extremities while in bed, prophylactic anticoagulation 06/30/2020. Awaiting for outpatient hemodialysis arrangements. Problematic placement because patient tested Covid positive. Case management following closely. - Patient Problems (1) YUNI (acute kidney injury) Current Visit: Yes Status: Acute (2) DKA (diabetic ketoacidoses) Current Visit: Yes Status: Acute Qualifiers: Diabetes mellitus complication detail: with coma (3) End stage renal disease Current Visit: Yes Status: Acute (4) Rhabdomyolysis Current Visit: Yes Status: Acute Qualifiers: Encounter type: initial encounter (5) Sepsis Current Visit: Yes Status: Acute (6) Toxic metabolic encephalopathy Current Visit: Yes Status: Acute History Interval history: No new issues overnight Hospitalist Physical - Constitutional Vitals: Temp Pulse Resp BP Pulse Ox 98.5 F 95 H 18 115/78 93 07/02/20 03:52 07/02/20 03:52 07/02/20 03:52 07/02/20 03:52 07/02/20 03:52 General appearance: Present: no acute distress, well-nourished - EENT Eyes: Present: PERRL, EOM intact ENT: hearing intact, clear oral mucosa, dentition normal - Neck Neck: Present: supple, normal ROM - Respiratory Respiratory effort: normal Respiratory: bilateral: CTA - Cardiovascular Rhythm: regular Heart Sounds: Present: S1 & S2. Absent: gallop, rub - Extremities Extremities: no ischemia, No edema, Full ROM - Abdominal General gastrointestinal: soft, non-tender, non-distended, normal bowel sounds - Integumentary Integumentary: Present: clear, warm, dry - Neurologic Neurologic: CNII-XII intact, moves all extremities HEART Score - HEART Score Troponin: Troponin T < 0.010 ng/mL (0.00-0.029) 06/17/20 11:24 Results - Labs CBC & Chem 7: 07/02/20 04:22 07/02/20 04:22 Labs: Laboratory Last Values WBC 10.6 K/mm3 (4.5-11.0) 07/02/20 04:22 RBC 3.18 M/mm3 (3.65-5.03) L 07/02/20 04:22 Hgb 9.0 gm/dl (11.8-15.2) L 07/02/20 04:22 Hct 26.8 % (35.5-45.6) L 07/02/20 04:22 MCV 84 fl (84-94) 07/02/20 04:22 MCH 28 pg (28-32) 07/02/20 04:22 MCHC 34 % (32-34) 07/02/20 04:22 RDW 15.6 % (13.2-15.2) H 07/02/20 04:22 Plt Count 249 K/mm3 (140-440) 07/02/20 04:22 Lymph % (Auto) 22.4 % (13.4-35.0) 07/02/20 04:22 [place] % (Auto) 11.7 % (0.0-7.3) H 07/02/20 04:22 Eos % (Auto) 0.8 % (0.0-4.3) 07/02/20 04:22 Baso % (Auto) 0.4 % (0.0-1.8) 07/02/20 04:22 Lymph # (Auto) 2.4 K/mm3 (1.2-5.4) 07/02/20 04:22 [place] # (Auto) 1.2 K/mm3 (0.0-0.8) H 07/02/20 04:22 Eos # (Auto) 0.1 K/mm3 (0.0-0.4) 07/02/20 04:22 Baso # (Auto) 0.0 K/mm3 (0.0-0.1) 07/02/20 04:22 Add Manual Diff Complete 06/30/20 08:16 Total Counted 100 06/30/20 08:16 Seg Neutrophils % 64.7 % (40.0-70.0) 07/02/20 04:22 Seg Neuts % (Manual) 69.0 % (40.0-70.0) 06/30/20 08:16 Band Neutrophils % 2.0 % 06/30/20 08:16 Lymphocytes % (Manual) 16.0 % (13.4-35.0) 06/30/20 08:16 Monocytes % (Manual) 10.0 % (0.0-7.3) H 06/30/20 08:16 Eosinophils % (Manual) 1.0 % (0.0-4.3) 06/28/20 07:12 Basophils % (Manual) 1.0 % (0.0-1.8) 06/27/20 07:10 Metamyelocytes % 3.0 % 06/30/20 08:16 Myelocytes % 3.0 % 06/28/20 07:12 Nucleated RBC % 1.0 % (0.0-0.9) H 06/30/20 08:16 Seg Neutrophils # 6.9 K/mm3 (1.8-7.7) 07/02/20 04:22 Seg Neutrophils # Man 7.0 K/mm3 (1.8-7.7) 06/30/20 08:16 Band Neutrophils # 0.2 K/mm3 06/30/20 08:16 Lymphocytes # (Manual) 1.6 K/mm3 (1.2-5.4) 06/30/20 08:16 Abs React Lymphs (Man) 0.0 K/mm3 06/30/20 08:16 Monocytes # (Manual) 1.0 K/mm3 (0.0-0.8) H 06/30/20 08:16 Eosinophils # (Manual) 0.0 K/mm3 (0.0-0.4) 06/30/20 08:16 Basophils # (Manual) 0.0 K/mm3 (0.0-0.1) 06/30/20 08:16 Metamyelocytes # 0.3 K/mm3 06/30/20 08:16 Myelocytes # 0.0 K/mm3 06/30/20 08:16 Promyelocytes # 0.0 K/mm3 06/30/20 08:16 Blast Cells # 0.0 K/mm3 06/30/20 08:16 WBC Morphology Not Reportable 06/30/20 08:16 Hypersegmented Neuts Not Reportable 06/30/20 08:16 Hyposegmented Neuts Not Reportable 06/30/20 08:16 Hypogranular Neuts Not Reportable 06/30/20 08:16 Smudge Cells Not Reportable 06/30/20 08:16 Toxic Granulation Not Reportable 06/30/20 08:16 Toxic Vacuolation Not Reportable 06/30/20 08:16 Dohle Bodies Not Reportable 06/30/20 08:16 Pelger-Huet Anomaly Not Reportable 06/30/20 08:16 Seth Rods Not Reportable 06/30/20 08:16 Platelet Estimate Consistent w auto 06/30/20 08:16 Clumped Platelets Not Reportable 06/30/20 08:16 Plt Clumps, EDTA Not Reportable 06/30/20 08:16 Large Platelets Not Reportable 06/30/20 08:16 Giant Platelets Not Reportable 06/30/20 08:16 Platelet Satelliting Not Reportable 06/30/20 08:16 Plt Morphology Comment Not Reportable 06/30/20 08:16 RBC Morphology Not Reportable 06/30/20 08:16 Dimorphic RBCs Not Reportable 06/30/20 08:16 Polychromasia Few 06/30/20 08:16 Hypochromasia Not Reportable 06/30/20 08:16 Poikilocytosis Not Reportable 06/30/20 08:16 Anisocytosis 1+ 06/30/20 08:16 Microcytosis Not Reportable 06/30/20 08:16 Macrocytosis Not Reportable 06/30/20 08:16 Spherocytes Not Reportable 06/30/20 08:16 Pappenheimer Bodies Not Reportable 06/30/20 08:16 Sickle Cells Not Reportable 06/30/20 08:16 Target Cells Not Reportable 06/30/20 08:16 Tear Drop Cells Not Reportable 06/30/20 08:16 Ovalocytes Not Reportable 06/30/20 08:16 Helmet Cells Not Reportable 06/30/20 08:16 Yo-[place] Bodies Not Reportable 06/30/20 08:16 [place] Rings Not Reportable 06/30/20 08:16 [place] Cells Not Reportable 06/30/20 08:16 Bite Cells Not Reportable 06/30/20 08:16 Crenated Cell Not Reportable 06/30/20 08:16 Elliptocytes Not Reportable 06/30/20 08:16 Acanthocytes (Spur) Not Reportable 06/30/20 08:16 Rouleaux Not Reportable 06/30/20 08:16 Hemoglobin C Crystals Not Reportable 06/30/20 08:16 Schistocytes Not Reportable 06/30/20 08:16 Malaria parasites Not Reportable 06/30/20 08:16 Mick Bodies Not Reportable 06/30/20 08:16 Hem Pathologist Commnt No 06/30/20 08:16 PT 22.1 Sec. (12.2-14.9) H 06/17/20 11:24 INR 1.92 (0.87-1.13) H 06/17/20 11:24 APTT 38.9 Sec. (24.2-36.6) H 06/17/20 11:24 ABG pH 7.545 (7.320-7.450) H 06/24/20 16:17 POC ABG pCO2 34.2 mmHg (32.0-48.0) 06/24/20 16:17 POC ABG pO2 68.9 mmHg (83-108) L 06/24/20 16:17 POC ABG HCO3 28.9 06/24/20 16:17 POC ABG Base Excess 6.0 06/24/20 16:17 ABG Hemoglobin 6.8 (12.0-17.5) L 06/24/20 16:17 ABG Oxyhemoglobin 92.4 (94-98) L 06/24/20 16:17 ABG Methemoglobin 0.3 (0.0-1.5) 06/24/20 16:17 ABG Sodium 135.1 mmol/L (136.0-145.0) L 06/24/20 16:17 ABG Potassium 3.0 mmol/L (3.40-4.50) L 06/24/20 16:17 ABG Chloride 101.0 mmol/L (98-107) 06/24/20 16:17 ABG Glucose 199 mg/dL (65-95) H 06/24/20 16:17 VBG pH 7.123 (7.320-7.420) L* 06/17/20 11:24 Carboxyhemoglobin 1.7 (0.5-1.5) H 06/24/20 16:17 FiO2 21 06/24/20 16:17 Sodium 143 mmol/L (137-145) 07/02/20 04:22 Potassium 3.2 mmol/L (3.6-5.0) L 07/02/20 04:22 Chloride 104.4 mmol/L (98-107) 07/02/20 04:22 Carbon Dioxide 30 mmol/L (22-30) 07/02/20 04:22 Anion Gap 12 mmol/L 07/02/20 04:22 BUN 26 mg/dL (9-20) H 07/02/20 04:22 Creatinine 2.3 mg/dL (0.8-1.3) H 07/02/20 04:22 Estimated GFR 37 ml/min 07/02/20 04:22 BUN/Creatinine Ratio 11 % 07/02/20 04:22 Glucose 101 mg/dL (75-100) H 07/02/20 04:22 POC Glucose 122 mg/dL (70-105) H 07/02/20 07:42 Lactic Acid 1.40 mmol/L (0.7-2.0) 06/20/20 05:08 Calcium 8.7 mg/dL (8.4-10.2) 07/02/20 04:22 Phosphorus 6.70 mg/dL (2.5-4.5) H 06/20/20 19:43 Magnesium 4.50 mg/dL (1.7-2.3) H 06/17/20 15:33 Total Bilirubin 0.60 mg/dL (0.1-1.2) 06/20/20 14:47 AST 149 units/L (5-40) H 06/20/20 14:47 ALT 89 units/L (7-56) H 06/20/20 14:47 Alkaline Phosphatase 60 units/L (35-129) 06/20/20 14:47 Ammonia 56.0 umol/L (25-60) 06/17/20 11:24 Total Creatine Kinase 290 units/L (55-170) H 06/29/20 07:33 CK-MB (CK-2) 7.9 ng/mL (0.0-4.0) H 06/17/20 11:24 CK-MB (CK-2) Rel Index 0.1 (0-4) 06/17/20 11:24 Troponin T < 0.010 ng/mL (0.00-0.029) 06/17/20 11:24 Total Protein 5.9 g/dL (6.3-8.2) L D 06/20/20 14:47 Albumin 2.3 g/dL (3.9-5) L 06/20/20 14:47 Albumin/Globulin Ratio 0.6 % 06/20/20 14:47 Procalcitonin 8.18 ng/mL (<0.15) 06/18/20 21:36 TSH 0.914 mlU/mL (0.270-4.200) 06/17/20 11:24 Free T4 1.65 ng/dL (0.76-1.46) H 06/17/20 11:24 PTH Intact 25.17 pg/mL (15-65) 06/25/20 08:30 Arterial Blood Glucose 199 mg/dL (65-95) H 06/24/20 16:17 Arterial Blood Ionized Calcium 4.3 mg/dL (4.6-5.3) L 06/24/20 16:17 Urine Color Yellow (Yellow) 06/17/20 Unknown Urine Turbidity Slightly-cloudy (Clear) 06/17/20 Unknown Urine pH 5.0 (5.0-7.0) 06/17/20 Unknown Ur Specific [place] 1.022 (1.003-1.030) 06/17/20 Unknown Urine Protein 100 mg/dl mg/dL (Negative) 06/17/20 Unknown Urine Glucose (UA) >=500 mg/dL (Negative) 06/17/20 Unknown Urine Ketones Neg mg/dL (Negative) 06/17/20 Unknown Urine Blood Lg (Negative) 06/17/20 Unknown Urine Nitrite Neg (Negative) 06/17/20 Unknown Urine Bilirubin Neg (Negative) 06/17/20 Unknown Urine Urobilinogen < 2.0 mg/dL (<2.0) 06/17/20 Unknown Ur Leukocyte Esterase Neg (Negative) 06/17/20 Unknown Urine WBC (Auto) 7.0 /HPF (0.0-6.0) H 06/17/20 Unknown Urine RBC (Auto) 5.0 /HPF (0.0-6.0) 06/17/20 Unknown U Epithel Cells (Auto) < 1.0 /HPF (0-13.0) 06/17/20 Unknown Urine Mucus Few /HPF 06/17/20 Unknown Urine Total Volume 1400 ml 06/25/20 16:58 Urine Creatinine 73.8 mg/dL (0.1-20.0) H 06/25/20 16:58 Ur Creatinine 24 Hour 1.0 (0.8-2.8) 06/25/20 16:58 Ur Total Protein 24 Hr 644.00 mg/dL (2-200) H 06/25/20 16:58 Urine Total Protein 46 mg/dL (5-11.8) H 06/25/20 16:58 Urine Opiates Screen Presumptive negative 06/19/20 19:00 Urine Methadone Screen Presumptive negative 06/19/20 19:00 Ur Barbiturates Screen Presumptive negative 06/19/20 19:00 Ur Phencyclidine Scrn Presumptive negative 06/19/20 19:00 Ur Amphetamines Screen Presumptive negative 06/19/20 19:00 U Benzodiazepines Scrn Presumptive negative 06/19/20 19:00 Urine Cocaine Screen Presumptive negative 06/19/20 19:00 U Marijuana (THC) Screen Presumptive negative 06/19/20 19:00 Drugs of Abuse Note Disclamer 06/19/20 19:00 Plasma/Serum Alcohol < 0.01 % (0-0.07) 06/17/20 11:24 Coronavirus (PCR) Positive (Negative) A 06/29/20 10:43 Hepatitis A IgM Ab Non-reactive (NonReactive) 06/20/20 19:43 Hep Bs Antigen Non-reactive (Negative) 06/20/20 19:43 Hep B Core IgM Ab Non-reactive (NonReactive) 06/20/20 19:43 Hepatitis C Antibody Non-reactive (NonReactive) 06/20/20 19:43 Blood Type B POSITIVE 06/27/20 10:54 Antibody Screen Negative 06/27/20 10:54 Crossmatch See Detail 06/27/20 10:54 Garcia/IV: Voiding Method Urinal IV Catheter Type [Left Forearm INT / Saline Lock ] IV Catheter Type [Left Peripheral IV Antecubital] IV Catheter Type [Right VAS Cath Internal Jugular] IV Catheter Type [Left Hand] INT / Saline Lock IV Catheter Type [Right INT / Saline Lock Antecubital] Active Medications - Current Medications Current Medications: Generic Name Dose Route Start Last Admin Trade Name Freq PRN Reason Stop Dose Admin Acetaminophen 650 mg 06/17/20 13:40 06/25/20 15:09 Acetaminophen 325 Mg Tab PO 650 mg Q6H PRN Administration Pain, Mild (1-3) Albuterol 2.5 mg 06/17/20 13:40 Albuterol 2.5 Mg/3 Ml Nebu IH Q3HRT PRN Shortness Of Breath Dextrose 50 ml 06/19/20 15:28 Dextrose 50% In Water (25gm) 50 Ml Syringe IV Q30MIN PRN Hypoglycemia Protocol Epoetin Germán 20,000 unit 06/25/20 08:16 Epoetin Germán 20,000 Unit/1 Ml Inj IV MARIELLE PRN hemodialysis Famotidine 20 mg 06/19/20 10:00 07/01/20 10:24 Famotidine 20 Mg Tab PO 20 mg QDAY JERMAINE Administration Heparin Sodium (Porcine) 5,000 unit 06/17/20 22:00 07/01/20 22:15 Heparin 5,000 Unit/1 Ml Vial SUB-Q 5,000 unit Q12HR JERMAINE Administration Hydromorphone HCl 0.25 mg 06/17/20 13:40 06/22/20 23:58 Hydromorphone 1 Mg/1 Ml Inj IV 0.25 mg Q4H PRN Administration Pain, Moderate (4-6) Sodium Chloride 100 mls @ 999 mls/hr 06/24/20 12:00 Nacl 0.9% IV MARIELLE PRN Hypotension Insulin Human Isoph/Insulin Regular 20 unit 06/28/20 08:00 07/01/20 17:09 Insulin Nph/Regular 70/30 Inj SUB-Q 20 unit BIDDIAB JERMAINE Administration Insulin Human Lispro 0 unit 06/29/20 11:30 07/01/20 22:17 Insulin Lispro 100 Unit/Ml Vial 3 Ml SUB-Q 4 unit ACHS JERMAINE Administration Protocol Sodium Bicarbonate 650 mg 06/29/20 22:00 07/01/20 22:14 Sodium Bicarbonate 650 Mg Tab PO 650 mg BID JERMAINE Administration Sodium Chloride 10 ml 06/17/20 22:00 07/01/20 22:15 Sodium Chloride 0.9% 10 Ml Flush Syringe IV 10 ml BID JERMAINE Administration Sodium Chloride 10 ml 06/17/20 13:40 Sodium Chloride 0.9% 10 Ml Flush Syringe IV PRN PRN LINE FLUSH Nutrition/Malnutrition Assess - Dietary Evaluation Nutrition/Malnutrition Findings: Nutrition Notes Start: 06/24/20 12:21 Freq: Status: Active Protocol: Document 06/24/20 12:21 LM (Rec: 06/24/20 12:24 LM [id number]) Nutrition Notes Current Diagnosis Acute Kidney Injury,CKD (stage V CKD),Diabetes,Sepsis Other Pertinent Diagnosis Rhabdomyolysis Current Diet Renal Labs/Tests BUN 102 Cr 7.1 BG 324 Pertinent Medications Humalog Height 5 ft 10 in Weight 82.6 kg [place] Body Weight (kg) 75.45 BMI 26.1 Weight Status Overweight Subjective/Other Information Screen for LOS. Pt ate 75% of breakfast this AM and reports eating well [employer] with no wt loss. Nutrition Intervention Revisit per MD consult or patient Sign Off request:
[2020-07-02] MEDS: SODIUM BICARBONATE 650 MG TAB PO SCH ×2 (09:45→21:01)
[2020-07-02] MEDS: FAMOTIDINE 20 MG TAB PO SCH (09:45)
--- NOTE | 2020-07-02 12:26 | Progress Note ---
Assessment and Plan Diabetic ketoacidosis. Acute toxic metabolic encephalopathy. Severe sepsis at presentation. Leukocytosis, presumably stress leukocytosis. Hypernatremia. Rhabdomyolysis. Acute kidney injury - awaiting outpatient dialysis placement - no new issues otherwise, continue care as below; - continue HD/UF for toxin and volume control - supplemental oxygen to keep O2 sats > 90% - prn Bronchodilators (INÉS) with pulm hygiene per RT - continue to avoid nephrotoxins, renally dose all medications - mobility protocols to prevent pressure ulcers - PT/OT as tolerated - prn analgesia per pain score - continue accuchecks with glycemic control per SSI for target blood glucose < 180 mg/dL - GI & VTE prophylaxis - Flu & pneumovax per protocol - continue other care per attending / other consultants ... re-evaluate in am & prn Subjective Date of service: 07/02/20 Principal diagnosis: DKA; Ac encephalopathy; Severe sepsis; Rhabdomyolysis; YUNI. Interval history: Patient is seen today for: Diabetic ketoacidosis; Acute toxic metabolic encephalopathy; Severe sepsis; Rhabdomyolysis; Acute kidney injury Seen and examined at bedside; 24hour events reviewed; nursing and respiratory care staff consulted; no adverse overnight events reported to me; resting in bed; tolerating HD/UF well so far; glycemic control improved; denies N/V/F/C Objective Vital Signs - 12hr 07/02/20 07/02/20 03:52 09:56 Temperature 98.5 F Pulse Rate 95 H Respiratory 18 20 Rate Blood Pressure 115/78 O2 Sat by Pulse 93 93 Oximetry Constitutional: no acute distress, alert, other (middle aged male with normal respiratory effort at rest) Eyes: non-icteric ENT: oropharynx moist Neck: supple, no lymphadenopathy, no JVD Effort: normal Ascultation: Bilateral: clear Percussion: Bilateral: not dull Cardiovascular: regular rate and rhythm Gastrointestinal: normoactive bowel sounds, soft, non-tender, non-distended Integumentary: rash (xeroderma) Extremities: no cyanosis, no edema, pulses normal, no ischemia or petechiae Neurologic: non-focal exam, pupils equal and round, CN II-XII normal, motor strength normal and Psychiatric: mood appropriate, affect normal CBC and BMP: 07/03/20 05:29 07/03/20 05:29 ABG, PT/INR, D-dimer: ABG ABG pH 7.545 (7.320-7.450) H 06/24/20 16:17 POC ABG pCO2 34.2 mmHg (32.0-48.0) 06/24/20 16:17 POC ABG pO2 68.9 mmHg (83-108) L 06/24/20 16:17 POC ABG HCO3 28.9 06/24/20 16:17 PT/INR, D-dimer PT 22.1 Sec. (12.2-14.9) H 06/17/20 11:24 INR 1.92 (0.87-1.13) H 06/17/20 11:24 Abnormal lab findings: Abnormal Labs 06/17/20 06/17/20 06/17/20 11:24 11:24 11:24 WBC 14.7 H RBC 5.38 H Hgb Hct 49.1 H MCV MCH 27 L MCHC 29 L RDW Lymph % (Auto) 9.9 L [place] % (Auto) [place] # (Auto) Seg Neutrophils % 86.8 H Seg Neuts % (Manual) Lymphocytes % (Manual) Monocytes % (Manual) Nucleated RBC % Seg Neutrophils # 12.8 H Seg Neutrophils # Man Lymphocytes # (Manual) Monocytes # (Manual) Basophils # (Manual) PT 22.1 H INR 1.92 H APTT 38.9 H ABG pH POC ABG pO2 ABG Hemoglobin ABG Oxyhemoglobin ABG Sodium ABG Potassium ABG Glucose VBG pH Carboxyhemoglobin Sodium 149 H Potassium Chloride Carbon Dioxide BUN 84 H Creatinine 3.6 H Glucose 1394 H* POC Glucose Lactic Acid Calcium Phosphorus Magnesium AST 59 H ALT Total Creatine Kinase 5507 H CK-MB (CK-2) 7.9 H Total Protein 9.0 H Albumin 3.7 L Free T4 Arterial Blood Glucose Arterial Blood Ionized Calcium Urine WBC (Auto) Urine Creatinine Ur Total Protein 24 Hr Urine Total Protein Coronavirus (PCR) Crossmatch 06/17/20 06/17/20 06/17/20 11:24 11:24 11:24 WBC RBC Hgb Hct MCV MCH MCHC RDW Lymph % (Auto) [place] % (Auto) [place] # (Auto) Seg Neutrophils % Seg Neuts % (Manual) Lymphocytes % (Manual) Monocytes % (Manual) Nucleated RBC % Seg Neutrophils # Seg Neutrophils # Man Lymphocytes # (Manual) Monocytes # (Manual) Basophils # (Manual) PT INR APTT ABG pH POC ABG pO2 ABG Hemoglobin ABG Oxyhemoglobin ABG Sodium ABG Potassium ABG Glucose VBG pH 7.123 L* Carboxyhemoglobin Sodium Potassium Chloride Carbon Dioxide BUN Creatinine Glucose POC Glucose Lactic Acid Calcium Phosphorus Magnesium 6.20 H AST ALT Total Creatine Kinase CK-MB (CK-2) Total Protein Albumin Free T4 1.65 H Arterial Blood Glucose Arterial Blood Ionized Calcium Urine WBC (Auto) Urine Creatinine Ur Total Protein 24 Hr Urine Total Protein Coronavirus (PCR) Crossmatch 06/17/20 06/17/20 06/17/20 15:27 15:33 15:33 WBC RBC Hgb Hct MCV MCH MCHC RDW Lymph % (Auto) [place] % (Auto) [place] # (Auto) Seg Neutrophils % Seg Neuts % (Manual) Lymphocytes % (Manual) Monocytes % (Manual) Nucleated RBC % Seg Neutrophils # Seg Neutrophils # Man Lymphocytes # (Manual) Monocytes # (Manual) Basophils # (Manual) PT INR APTT ABG pH POC ABG pO2 ABG Hemoglobin ABG Oxyhemoglobin ABG Sodium ABG Potassium ABG Glucose VBG pH Carboxyhemoglobin Sodium Potassium Chloride Carbon Dioxide BUN Creatinine Glucose 1086 H* POC Glucose > 600 H Lactic Acid Calcium Phosphorus 9.40 H Magnesium 4.50 H AST ALT Total Creatine Kinase CK-MB (CK-2) Total Protein Albumin Free T4 Arterial Blood Glucose Arterial Blood Ionized Calcium Urine WBC (Auto) Urine Creatinine Ur Total Protein 24 Hr Urine Total Protein Coronavirus (PCR) Crossmatch 06/17/20 06/17/20 06/17/20 16:58 18:39 18:41 WBC RBC Hgb Hct MCV MCH MCHC RDW Lymph % (Auto) [place] % (Auto) [place] # (Auto) Seg Neutrophils % Seg Neuts % (Manual) Lymphocytes % (Manual) Monocytes % (Manual) Nucleated RBC % Seg Neutrophils # Seg Neutrophils # Man Lymphocytes # (Manual) Monocytes # (Manual) Basophils # (Manual) PT INR APTT ABG pH POC ABG pO2 ABG Hemoglobin ABG Oxyhemoglobin ABG Sodium ABG Potassium ABG Glucose VBG pH Carboxyhemoglobin Sodium 155 H 154 H Potassium 3.0 L D 2.8 L* Chloride 114.0 H 117.3 H Carbon Dioxide 20 L 19 L BUN 83 H 84 H Creatinine 3.2 H 3.3 H Glucose 1046 H* 830 H* POC Glucose > 600 H Lactic Acid Calcium 7.8 L D 7.9 L Phosphorus Magnesium AST ALT Total Creatine Kinase CK-MB (CK-2) Total Protein Albumin Free T4 Arterial Blood Glucose Arterial Blood Ionized Calcium Urine WBC (Auto) Urine Creatinine Ur Total Protein 24 Hr Urine Total Protein Coronavirus (PCR) Crossmatch 06/17/20 06/17/20 06/17/20 21:15 21:15 Unknown WBC RBC Hgb Hct MCV MCH MCHC RDW Lymph % (Auto) [place] % (Auto) [place] # (Auto) Seg Neutrophils % Seg Neuts % (Manual) Lymphocytes % (Manual) Monocytes % (Manual) Nucleated RBC % Seg Neutrophils # Seg Neutrophils # Man Lymphocytes # (Manual) Monocytes # (Manual) Basophils # (Manual) PT INR APTT ABG pH POC ABG pO2 ABG Hemoglobin ABG Oxyhemoglobin ABG Sodium ABG Potassium ABG Glucose VBG pH Carboxyhemoglobin Sodium 157 H Potassium 2.9 L* Chloride 118.8 H Carbon Dioxide 19 L BUN 84 H Creatinine 3.3 H Glucose 666 H* POC Glucose Lactic Acid 2.80 H* Calcium 7.8 L Phosphorus Magnesium AST ALT Total Creatine Kinase CK-MB (CK-2) Total Protein Albumin Free T4 Arterial Blood Glucose Arterial Blood Ionized Calcium Urine WBC (Auto) 7.0 H Urine Creatinine Ur Total Protein 24 Hr Urine Total Protein Coronavirus (PCR) Crossmatch 06/18/20 06/18/20 06/18/20 00:10 00:20 03:20 WBC RBC Hgb Hct MCV MCH MCHC RDW Lymph % (Auto) [place] % (Auto) [place] # (Auto) Seg Neutrophils % Seg Neuts % (Manual) Lymphocytes % (Manual) Monocytes % (Manual) Nucleated RBC % Seg Neutrophils # Seg Neutrophils # Man Lymphocytes # (Manual) Monocytes # (Manual) Basophils # (Manual) PT INR APTT ABG pH POC ABG pO2 ABG Hemoglobin ABG Oxyhemoglobin ABG Sodium ABG Potassium ABG Glucose VBG pH Carboxyhemoglobin Sodium 160 H Potassium 3.0 L Chloride 118.8 H Carbon Dioxide BUN 89 H Creatinine 3.8 H Glucose 650 H* POC Glucose 291 H Lactic Acid 2.40 H* Calcium 7.8 L Phosphorus Magnesium AST ALT Total Creatine Kinase CK-MB (CK-2) Total Protein Albumin Free T4 Arterial Blood Glucose Arterial Blood Ionized Calcium Urine WBC (Auto) Urine Creatinine Ur Total Protein 24 Hr Urine Total Protein Coronavirus (PCR) Crossmatch 06/18/20 06/18/20 06/18/20 05:19 06:27 06:27 WBC RBC Hgb Hct MCV MCH MCHC RDW Lymph % (Auto) [place] % (Auto) [place] # (Auto) Seg Neutrophils % Seg Neuts % (Manual) Lymphocytes % (Manual) Monocytes % (Manual) Nucleated RBC % Seg Neutrophils # Seg Neutrophils # Man Lymphocytes # (Manual) Monocytes # (Manual) Basophils # (Manual) PT INR APTT ABG pH POC ABG pO2 ABG Hemoglobin ABG Oxyhemoglobin ABG Sodium ABG Potassium ABG Glucose VBG pH Carboxyhemoglobin Sodium 167 H* Potassium 3.4 L Chloride 126.4 H Carbon Dioxide 21 L BUN 99 H Creatinine 4.5 H Glucose 291 H POC Glucose 276 H Lactic Acid 2.80 H* Calcium 8.1 L Phosphorus Magnesium AST ALT Total Creatine Kinase CK-MB (CK-2) Total Protein Albumin Free T4 Arterial Blood Glucose Arterial Blood Ionized Calcium Urine WBC (Auto) Urine Creatinine Ur Total Protein 24 Hr Urine Total Protein Coronavirus (PCR) Crossmatch 06/18/20 06/18/20 06/18/20 06:45 08:40 08:49 WBC RBC Hgb Hct MCV MCH MCHC RDW Lymph % (Auto) [place] % (Auto) [place] # (Auto) Seg Neutrophils % Seg Neuts % (Manual) Lymphocytes % (Manual) Monocytes % (Manual) Nucleated RBC % Seg Neutrophils # Seg Neutrophils # Man Lymphocytes # (Manual) Monocytes # (Manual) Basophils # (Manual) PT INR APTT ABG pH POC ABG pO2 ABG Hemoglobin ABG Oxyhemoglobin ABG Sodium ABG Potassium ABG Glucose VBG pH Carboxyhemoglobin Sodium Potassium Chloride Carbon Dioxide BUN Creatinine Glucose POC Glucose 215 H 182 H Lactic Acid 2.20 H* Calcium Phosphorus Magnesium AST ALT Total Creatine Kinase CK-MB (CK-2) Total Protein Albumin Free T4 Arterial Blood Glucose Arterial Blood Ionized Calcium Urine WBC (Auto) Urine Creatinine Ur Total Protein 24 Hr Urine Total Protein Coronavirus (PCR) Crossmatch 06/18/20 06/18/20 06/18/20 10:01 10:28 11:40 WBC RBC Hgb Hct MCV MCH MCHC RDW Lymph % (Auto) [place] % (Auto) [place] # (Auto) Seg Neutrophils % Seg Neuts % (Manual) Lymphocytes % (Manual) Monocytes % (Manual) Nucleated RBC % Seg Neutrophils # Seg Neutrophils # Man Lymphocytes # (Manual) Monocytes # (Manual) Basophils # (Manual) PT INR APTT ABG pH POC ABG pO2 ABG Hemoglobin ABG Oxyhemoglobin ABG Sodium ABG Potassium ABG Glucose VBG pH Carboxyhemoglobin Sodium 161 H* Potassium Chloride 125.4 H Carbon Dioxide 21 L BUN 98 H Creatinine 5.0 H Glucose 247 H POC Glucose 217 H Lactic Acid 3.20 H* Calcium 7.8 L Phosphorus Magnesium AST ALT Total Creatine Kinase CK-MB (CK-2) Total Protein Albumin Free T4 Arterial Blood Glucose Arterial Blood Ionized Calcium Urine WBC (Auto) Urine Creatinine Ur Total Protein 24 Hr Urine Total Protein Coronavirus (PCR) Crossmatch 06/18/20 06/18/20 06/18/20 11:40 11:40 12:33 WBC RBC Hgb Hct MCV MCH MCHC RDW Lymph % (Auto) [place] % (Auto) [place] # (Auto) Seg Neutrophils % Seg Neuts % (Manual) Lymphocytes % (Manual) Monocytes % (Manual) Nucleated RBC % Seg Neutrophils # Seg Neutrophils # Man Lymphocytes # (Manual) Monocytes # (Manual) Basophils # (Manual) PT INR APTT ABG pH POC ABG pO2 ABG Hemoglobin ABG Oxyhemoglobin ABG Sodium ABG Potassium ABG Glucose VBG pH Carboxyhemoglobin Sodium Potassium Chloride Carbon Dioxide BUN Creatinine Glucose POC Glucose 199 H Lactic Acid 2.40 H* Calcium Phosphorus Magnesium AST ALT Total Creatine Kinase 76978 H CK-MB (CK-2) Total Protein Albumin Free T4 Arterial Blood Glucose Arterial Blood Ionized Calcium Urine WBC (Auto) Urine Creatinine Ur Total Protein 24 Hr Urine Total Protein Coronavirus (PCR) Crossmatch 06/18/20 06/18/20 06/18/20 13:57 16:27 21:58 WBC RBC Hgb Hct MCV MCH MCHC RDW Lymph % (Auto) [place] % (Auto) [place] # (Auto) Seg Neutrophils % Seg Neuts % (Manual) Lymphocytes % (Manual) Monocytes % (Manual) Nucleated RBC % Seg Neutrophils # Seg Neutrophils # Man Lymphocytes # (Manual) Monocytes # (Manual) Basophils # (Manual) PT INR APTT ABG pH POC ABG pO2 ABG Hemoglobin ABG Oxyhemoglobin ABG Sodium ABG Potassium ABG Glucose VBG pH Carboxyhemoglobin Sodium Potassium Chloride Carbon Dioxide BUN Creatinine Glucose POC Glucose 198 H 185 H 281 H Lactic Acid Calcium Phosphorus Magnesium AST ALT Total Creatine Kinase CK-MB (CK-2) Total Protein Albumin Free T4 Arterial Blood Glucose Arterial Blood Ionized Calcium Urine WBC (Auto) Urine Creatinine Ur Total Protein 24 Hr Urine Total Protein Coronavirus (PCR) Crossmatch 06/19/20 06/19/20 06/19/20 00:55 00:55 04:25 WBC RBC Hgb Hct MCV MCH MCHC RDW Lymph % (Auto) [place] % (Auto) [place] # (Auto) Seg Neutrophils % Seg Neuts % (Manual) Lymphocytes % (Manual) Monocytes % (Manual) Nucleated RBC % Seg Neutrophils # Seg Neutrophils # Man Lymphocytes # (Manual) Monocytes # (Manual) Basophils # (Manual) PT INR APTT ABG pH POC ABG pO2 ABG Hemoglobin ABG Oxyhemoglobin ABG Sodium ABG Potassium ABG Glucose VBG pH Carboxyhemoglobin Sodium 164 H* Potassium Chloride 125.8 H Carbon Dioxide 21 L BUN 100 H Creatinine 6.4 H Glucose 370 H POC Glucose 366 H Lactic Acid 2.30 H* Calcium 7.4 L Phosphorus Magnesium AST ALT Total Creatine Kinase CK-MB (CK-2) Total Protein Albumin Free T4 Arterial Blood Glucose Arterial Blood Ionized Calcium Urine WBC (Auto) Urine Creatinine Ur Total Protein 24 Hr Urine Total Protein Coronavirus (PCR) Crossmatch 06/19/20 06/19/20 06/19/20 11:49 14:24 15:44 WBC RBC Hgb Hct MCV MCH MCHC RDW Lymph % (Auto) [place] % (Auto) [place] # (Auto) Seg Neutrophils % Seg Neuts % (Manual) Lymphocytes % (Manual) Monocytes % (Manual) Nucleated RBC % Seg Neutrophils # Seg Neutrophils # Man Lymphocytes # (Manual) Monocytes # (Manual) Basophils # (Manual) PT INR APTT ABG pH POC ABG pO2 ABG Hemoglobin ABG Oxyhemoglobin ABG Sodium ABG Potassium ABG Glucose VBG pH Carboxyhemoglobin Sodium Potassium Chloride Carbon Dioxide BUN Creatinine Glucose POC Glucose 411 H Lactic Acid 2.90 H* Calcium Phosphorus Magnesium AST ALT Total Creatine Kinase 63809 H CK-MB (CK-2) Total Protein Albumin Free T4 Arterial Blood Glucose Arterial Blood Ionized Calcium Urine WBC (Auto) Urine Creatinine Ur Total Protein 24 Hr Urine Total Protein Coronavirus (PCR) Crossmatch 06/19/20 06/19/20 06/19/20 18:41 21:44 22:16 WBC RBC Hgb Hct MCV MCH MCHC RDW Lymph % (Auto) [place] % (Auto) [place] # (Auto) Seg Neutrophils % Seg Neuts % (Manual) Lymphocytes % (Manual) Monocytes % (Manual) Nucleated RBC % Seg Neutrophils # Seg Neutrophils # Man Lymphocytes # (Manual) Monocytes # (Manual) Basophils # (Manual) PT INR APTT ABG pH POC ABG pO2 ABG Hemoglobin ABG Oxyhemoglobin ABG Sodium ABG Potassium ABG Glucose VBG pH Carboxyhemoglobin Sodium Potassium Chloride Carbon Dioxide BUN Creatinine Glucose POC Glucose 404 H 333 H Lactic Acid 2.50 H* Calcium Phosphorus Magnesium AST ALT Total Creatine Kinase CK-MB (CK-2) Total Protein Albumin Free T4 Arterial Blood Glucose Arterial Blood Ionized Calcium Urine WBC (Auto) Urine Creatinine Ur Total Protein 24 Hr Urine Total Protein Coronavirus (PCR) Crossmatch 06/20/20 06/20/20 06/20/20 00:12 04:37 05:08 WBC RBC Hgb Hct MCV MCH MCHC RDW Lymph % (Auto) [place] % (Auto) [place] # (Auto) Seg Neutrophils % Seg Neuts % (Manual) Lymphocytes % (Manual) Monocytes % (Manual) Nucleated RBC % Seg Neutrophils # Seg Neutrophils # Man Lymphocytes # (Manual) Monocytes # (Manual) Basophils # (Manual) PT INR APTT ABG pH POC ABG pO2 ABG Hemoglobin ABG Oxyhemoglobin ABG Sodium ABG Potassium ABG Glucose VBG pH Carboxyhemoglobin Sodium Potassium Chloride Carbon Dioxide BUN Creatinine Glucose POC Glucose 318 H Lactic Acid 2.10 H* Calcium Phosphorus Magnesium AST ALT Total Creatine Kinase 36225 H CK-MB (CK-2) Total Protein Albumin Free T4 Arterial Blood Glucose Arterial Blood Ionized Calcium Urine WBC (Auto) Urine Creatinine Ur Total Protein 24 Hr Urine Total Protein Coronavirus (PCR) Crossmatch 06/20/20 06/20/20 06/20/20 10:19 14:47 14:47 WBC 15.1 H RBC Hgb 10.2 L Hct 32.0 L MCV MCH 27 L MCHC RDW Lymph % (Auto) [place] % (Auto) [place] # (Auto) Seg Neutrophils % Seg Neuts % (Manual) 79.0 H Lymphocytes % (Manual) 12.0 L Monocytes % (Manual) Nucleated RBC % Seg Neutrophils # Seg Neutrophils # Man 11.9 H Lymphocytes # (Manual) Monocytes # (Manual) 1.1 H Basophils # (Manual) 0.2 H PT INR APTT ABG pH POC ABG pO2 ABG Hemoglobin ABG Oxyhemoglobin ABG Sodium ABG Potassium ABG Glucose VBG pH Carboxyhemoglobin Sodium 156 H Potassium 5.9 H D Chloride 118.3 H Carbon Dioxide 20 L BUN 159 H Creatinine 9.4 H Glucose 283 H POC Glucose 220 H Lactic Acid Calcium 7.7 L Phosphorus Magnesium AST 149 H ALT 89 H Total Creatine Kinase CK-MB (CK-2) Total Protein 5.9 L D Albumin 2.3 L Free T4 Arterial Blood Glucose Arterial Blood Ionized Calcium Urine WBC (Auto) Urine Creatinine Ur Total Protein 24 Hr Urine Total Protein Coronavirus (PCR) Crossmatch 06/20/20 06/20/20 06/20/20 17:02 19:43 22:01 WBC RBC Hgb Hct MCV MCH MCHC RDW Lymph % (Auto) [place] % (Auto) [place] # (Auto) Seg Neutrophils % Seg Neuts % (Manual) Lymphocytes % (Manual) Monocytes % (Manual) Nucleated RBC % Seg Neutrophils # Seg Neutrophils # Man Lymphocytes # (Manual) Monocytes # (Manual) Basophils # (Manual) PT INR APTT ABG pH POC ABG pO2 ABG Hemoglobin ABG Oxyhemoglobin ABG Sodium ABG Potassium ABG Glucose VBG pH Carboxyhemoglobin Sodium Potassium Chloride Carbon Dioxide BUN Creatinine Glucose POC Glucose 248 H 268 H Lactic Acid Calcium Phosphorus 6.70 H Magnesium AST ALT Total Creatine Kinase CK-MB (CK-2) Total Protein Albumin Free T4 Arterial Blood Glucose Arterial Blood Ionized Calcium Urine WBC (Auto) Urine Creatinine Ur Total Protein 24 Hr Urine Total Protein Coronavirus (PCR) Crossmatch 06/21/20 06/21/20 06/21/20 02:22 04:28 09:45 WBC RBC Hgb Hct MCV MCH MCHC RDW Lymph % (Auto) [place] % (Auto) [place] # (Auto) Seg Neutrophils % Seg Neuts % (Manual) Lymphocytes % (Manual) Monocytes % (Manual) Nucleated RBC % Seg Neutrophils # Seg Neutrophils # Man Lymphocytes # (Manual) Monocytes # (Manual) Basophils # (Manual) PT INR APTT ABG pH POC ABG pO2 ABG Hemoglobin ABG Oxyhemoglobin ABG Sodium ABG Potassium ABG Glucose VBG pH Carboxyhemoglobin Sodium Potassium Chloride Carbon Dioxide BUN Creatinine Glucose POC Glucose 248 H 237 H 234 H Lactic Acid Calcium Phosphorus Magnesium AST ALT Total Creatine Kinase CK-MB (CK-2) Total Protein Albumin Free T4 Arterial Blood Glucose Arterial Blood Ionized Calcium Urine WBC (Auto) Urine Creatinine Ur Total Protein 24 Hr Urine Total Protein Coronavirus (PCR) Crossmatch 06/21/20 06/21/20 06/21/20 15:29 15:29 15:29 WBC 11.8 H RBC 3.51 L Hgb 9.3 L Hct 29.8 L MCV MCH 27 L MCHC 31 L RDW Lymph % (Auto) [place] % (Auto) [place] # (Auto) Seg Neutrophils % Seg Neuts % (Manual) 81.0 H Lymphocytes % (Manual) 6.0 L Monocytes % (Manual) 10.0 H Nucleated RBC % Seg Neutrophils # Seg Neutrophils # Man 9.6 H Lymphocytes # (Manual) 0.7 L Monocytes # (Manual) 1.2 H Basophils # (Manual) PT INR APTT ABG pH POC ABG pO2 ABG Hemoglobin ABG Oxyhemoglobin ABG Sodium ABG Potassium ABG Glucose VBG pH Carboxyhemoglobin Sodium 152 H Potassium 6.0 H Chloride 115.0 H Carbon Dioxide 18 L BUN 161 H Creatinine 9.7 H Glucose 310 H POC Glucose Lactic Acid Calcium 7.9 L Phosphorus Magnesium AST ALT Total Creatine Kinase 20072 H CK-MB (CK-2) Total Protein Albumin Free T4 Arterial Blood Glucose Arterial Blood Ionized Calcium Urine WBC (Auto) Urine Creatinine Ur Total Protein 24 Hr Urine Total Protein Coronavirus (PCR) Crossmatch 06/21/20 06/22/20 06/22/20 18:07 02:33 05:51 WBC 11.3 H RBC 3.18 L Hgb 8.6 L Hct 26.7 L MCV MCH 27 L MCHC RDW Lymph % (Auto) 13.2 L [place] % (Auto) 10.8 H [place] # (Auto) 1.2 H Seg Neutrophils % 75.6 H Seg Neuts % (Manual) Lymphocytes % (Manual) Monocytes % (Manual) Nucleated RBC % Seg Neutrophils # 8.5 H Seg Neutrophils # Man Lymphocytes # (Manual) Monocytes # (Manual) Basophils # (Manual) PT INR APTT ABG pH POC ABG pO2 ABG Hemoglobin ABG Oxyhemoglobin ABG Sodium ABG Potassium ABG Glucose VBG pH Carboxyhemoglobin Sodium Potassium Chloride Carbon Dioxide BUN Creatinine Glucose POC Glucose 320 H 302 H Lactic Acid Calcium Phosphorus Magnesium AST ALT Total Creatine Kinase CK-MB (CK-2) Total Protein Albumin Free T4 Arterial Blood Glucose Arterial Blood Ionized Calcium Urine WBC (Auto) Urine Creatinine Ur Total Protein 24 Hr Urine Total Protein Coronavirus (PCR) Crossmatch 06/22/20 06/22/20 06/22/20 05:51 10:57 11:47 WBC RBC Hgb Hct MCV MCH MCHC RDW Lymph % (Auto) [place] % (Auto) [place] # (Auto) Seg Neutrophils % Seg Neuts % (Manual) Lymphocytes % (Manual) Monocytes % (Manual) Nucleated RBC % Seg Neutrophils # Seg Neutrophils # Man Lymphocytes # (Manual) Monocytes # (Manual) Basophils # (Manual) PT INR APTT ABG pH POC ABG pO2 ABG Hemoglobin ABG Oxyhemoglobin ABG Sodium ABG Potassium ABG Glucose VBG pH Carboxyhemoglobin Sodium Potassium Chloride Carbon Dioxide BUN 102 H Creatinine 7.1 H Glucose 357 H POC Glucose 438 H Lactic Acid Calcium 8.0 L Phosphorus Magnesium AST ALT Total Creatine Kinase 8530 H CK-MB (CK-2) Total Protein Albumin Free T4 Arterial Blood Glucose Arterial Blood Ionized Calcium Urine WBC (Auto) Urine Creatinine Ur Total Protein 24 Hr Urine Total Protein Coronavirus (PCR) Crossmatch 06/23/20 06/23/20 06/23/20 02:12 04:38 05:13 WBC RBC 2.93 L Hgb 8.0 L Hct 24.8 L MCV MCH 27 L MCHC RDW Lymph % (Auto) 13.0 L [place] % (Auto) 14.1 H [place] # (Auto) 1.5 H Seg Neutrophils % 72.4 H Seg Neuts % (Manual) Lymphocytes % (Manual) Monocytes % (Manual) Nucleated RBC % Seg Neutrophils # Seg Neutrophils # Man Lymphocytes # (Manual) Monocytes # (Manual) Basophils # (Manual) PT INR APTT ABG pH POC ABG pO2 ABG Hemoglobin ABG Oxyhemoglobin ABG Sodium ABG Potassium ABG Glucose VBG pH Carboxyhemoglobin Sodium Potassium Chloride Carbon Dioxide BUN Creatinine Glucose POC Glucose 417 H 390 H Lactic Acid Calcium Phosphorus Magnesium AST ALT Total Creatine Kinase CK-MB (CK-2) Total Protein Albumin Free T4 Arterial Blood Glucose Arterial Blood Ionized Calcium Urine WBC (Auto) Urine Creatinine Ur Total Protein 24 Hr Urine Total Protein Coronavirus (PCR) Crossmatch 06/23/20 06/23/20 06/23/20 05:13 05:13 10:06 WBC RBC Hgb Hct MCV MCH MCHC RDW Lymph % (Auto) [place] % (Auto) [place] # (Auto) Seg Neutrophils % Seg Neuts % (Manual) Lymphocytes % (Manual) Monocytes % (Manual) Nucleated RBC % Seg Neutrophils # Seg Neutrophils # Man Lymphocytes # (Manual) Monocytes # (Manual) Basophils # (Manual) PT INR APTT ABG pH POC ABG pO2 ABG Hemoglobin ABG Oxyhemoglobin ABG Sodium ABG Potassium ABG Glucose VBG pH Carboxyhemoglobin Sodium Potassium Chloride Carbon Dioxide BUN 90 H Creatinine 6.2 H Glucose 424 H POC Glucose 248 H Lactic Acid Calcium 7.8 L Phosphorus Magnesium AST ALT Total Creatine Kinase 8540 H CK-MB (CK-2) Total Protein Albumin Free T4 Arterial Blood Glucose Arterial Blood Ionized Calcium Urine WBC (Auto) Urine Creatinine Ur Total Protein 24 Hr Urine Total Protein Coronavirus (PCR) Crossmatch 06/23/20 06/23/20 06/23/20 11:44 15:51 20:30 WBC RBC Hgb Hct MCV MCH MCHC RDW Lymph % (Auto) [place] % (Auto) [place] # (Auto) Seg Neutrophils % Seg Neuts % (Manual) Lymphocytes % (Manual) Monocytes % (Manual) Nucleated RBC % Seg Neutrophils # Seg Neutrophils # Man Lymphocytes # (Manual) Monocytes # (Manual) Basophils # (Manual) PT INR APTT ABG pH POC ABG pO2 ABG Hemoglobin ABG Oxyhemoglobin ABG Sodium ABG Potassium ABG Glucose VBG pH Carboxyhemoglobin Sodium Potassium Chloride Carbon Dioxide BUN Creatinine Glucose POC Glucose 243 H 283 H 275 H Lactic Acid Calcium Phosphorus Magnesium AST ALT Total Creatine Kinase CK-MB (CK-2) Total Protein Albumin Free T4 Arterial Blood Glucose Arterial Blood Ionized Calcium Urine WBC (Auto) Urine Creatinine Ur Total Protein 24 Hr Urine Total Protein Coronavirus (PCR) Crossmatch 06/24/20 06/24/20 06/24/20 04:56 06:35 06:35 WBC 12.1 H RBC 2.78 L Hgb 7.5 L Hct 23.2 L MCV MCH 27 L MCHC RDW Lymph % (Auto) [place] % (Auto) [place] # (Auto) Seg Neutrophils % Seg Neuts % (Manual) 81.0 H Lymphocytes % (Manual) Monocytes % (Manual) Nucleated RBC % Seg Neutrophils # Seg Neutrophils # Man 9.8 H Lymphocytes # (Manual) Monocytes # (Manual) Basophils # (Manual) PT INR APTT ABG pH POC ABG pO2 ABG Hemoglobin ABG Oxyhemoglobin ABG Sodium ABG Potassium ABG Glucose VBG pH Carboxyhemoglobin Sodium Potassium Chloride Carbon Dioxide BUN 102 H Creatinine 7.1 H Glucose 324 H POC Glucose 269 H Lactic Acid Calcium Phosphorus Magnesium AST ALT Total Creatine Kinase 6347 H CK-MB (CK-2) Total Protein Albumin Free T4 Arterial Blood Glucose Arterial Blood Ionized Calcium Urine WBC (Auto) Urine Creatinine Ur Total Protein 24 Hr Urine Total Protein Coronavirus (PCR) Crossmatch 06/24/20 06/24/20 06/24/20 10:22 12:11 16:17 WBC RBC Hgb Hct MCV MCH MCHC RDW Lymph % (Auto) [place] % (Auto) [place] # (Auto) Seg Neutrophils % Seg Neuts % (Manual) Lymphocytes % (Manual) Monocytes % (Manual) Nucleated RBC % Seg Neutrophils # Seg Neutrophils # Man Lymphocytes # (Manual) Monocytes # (Manual) Basophils # (Manual) PT INR APTT ABG pH 7.545 H POC ABG pO2 68.9 L ABG Hemoglobin 6.8 L ABG Oxyhemoglobin 92.4 L ABG Sodium 135.1 L ABG Potassium 3.0 L ABG Glucose 199 H VBG pH Carboxyhemoglobin 1.7 H Sodium Potassium Chloride Carbon Dioxide BUN Creatinine Glucose POC Glucose 331 H 303 H Lactic Acid Calcium Phosphorus Magnesium AST ALT Total Creatine Kinase CK-MB (CK-2) Total Protein Albumin Free T4 Arterial Blood Glucose 199 H Arterial Blood Ionized Calcium 4.3 L Urine WBC (Auto) Urine Creatinine Ur Total Protein 24 Hr Urine Total Protein Coronavirus (PCR) Crossmatch 06/24/20 06/25/20 06/25/20 16:22 00:46 04:44 WBC 12.0 H RBC 2.56 L Hgb 6.9 L Hct 21.2 L MCV 83 L MCH 27 L MCHC RDW Lymph % (Auto) [place] % (Auto) 16.3 H [place] # (Auto) 2.0 H Seg Neutrophils % Seg Neuts % (Manual) Lymphocytes % (Manual) Monocytes % (Manual) Nucleated RBC % Seg Neutrophils # 8.1 H Seg Neutrophils # Man Lymphocytes # (Manual) Monocytes # (Manual) Basophils # (Manual) PT INR APTT ABG pH POC ABG pO2 ABG Hemoglobin ABG Oxyhemoglobin ABG Sodium ABG Potassium ABG Glucose VBG pH Carboxyhemoglobin Sodium Potassium Chloride Carbon Dioxide BUN Creatinine Glucose POC Glucose 173 H 391 H Lactic Acid Calcium Phosphorus Magnesium AST ALT Total Creatine Kinase CK-MB (CK-2) Total Protein Albumin Free T4 Arterial Blood Glucose Arterial Blood Ionized Calcium Urine WBC (Auto) Urine Creatinine Ur Total Protein 24 Hr Urine Total Protein Coronavirus (PCR) Crossmatch 06/25/20 06/25/20 06/25/20 04:44 04:44 06:20 WBC RBC Hgb Hct MCV MCH MCHC RDW Lymph % (Auto) [place] % (Auto) [place] # (Auto) Seg Neutrophils % Seg Neuts % (Manual) Lymphocytes % (Manual) Monocytes % (Manual) Nucleated RBC % Seg Neutrophils # Seg Neutrophils # Man Lymphocytes # (Manual) Monocytes # (Manual) Basophils # (Manual) PT INR APTT ABG pH POC ABG pO2 ABG Hemoglobin ABG Oxyhemoglobin ABG Sodium ABG Potassium ABG Glucose VBG pH Carboxyhemoglobin Sodium Potassium 3.4 L Chloride Carbon Dioxide BUN 63 H Creatinine 4.7 H Glucose 300 H POC Glucose 240 H Lactic Acid Calcium 8.2 L Phosphorus Magnesium AST ALT Total Creatine Kinase 3017 H CK-MB (CK-2) Total Protein Albumin Free T4 Arterial Blood Glucose Arterial Blood Ionized Calcium Urine WBC (Auto) Urine Creatinine Ur Total Protein 24 Hr Urine Total Protein Coronavirus (PCR) Crossmatch 06/25/20 06/25/20 06/25/20 08:20 16:57 16:58 WBC RBC Hgb Hct MCV MCH MCHC RDW Lymph % (Auto) [place] % (Auto) [place] # (Auto) Seg Neutrophils % Seg Neuts % (Manual) Lymphocytes % (Manual) Monocytes % (Manual) Nucleated RBC % Seg Neutrophils # Seg Neutrophils # Man Lymphocytes # (Manual) Monocytes # (Manual) Basophils # (Manual) PT INR APTT ABG pH POC ABG pO2 ABG Hemoglobin ABG Oxyhemoglobin ABG Sodium ABG Potassium ABG Glucose VBG pH Carboxyhemoglobin Sodium Potassium Chloride Carbon Dioxide BUN Creatinine Glucose POC Glucose 207 H 284 H Lactic Acid Calcium Phosphorus Magnesium AST ALT Total Creatine Kinase CK-MB (CK-2) Total Protein Albumin Free T4 Arterial Blood Glucose Arterial Blood Ionized Calcium Urine WBC (Auto) Urine Creatinine 73.8 H Ur Total Protein 24 Hr 644.00 H Urine Total Protein 46 H Coronavirus (PCR) Crossmatch 06/25/20 06/26/20 06/26/20 21:20 04:06 07:18 WBC 14.0 H RBC 2.52 L Hgb 6.8 L Hct 21.0 L MCV 83 L MCH 27 L MCHC RDW Lymph % (Auto) [place] % (Auto) [place] # (Auto) Seg Neutrophils % Seg Neuts % (Manual) 77.0 H Lymphocytes % (Manual) 12.0 L Monocytes % (Manual) Nucleated RBC % Seg Neutrophils # Seg Neutrophils # Man 10.8 H Lymphocytes # (Manual) Monocytes # (Manual) 1.0 H Basophils # (Manual) PT INR APTT ABG pH POC ABG pO2 ABG Hemoglobin ABG Oxyhemoglobin ABG Sodium ABG Potassium ABG Glucose VBG pH Carboxyhemoglobin Sodium Potassium Chloride Carbon Dioxide BUN Creatinine Glucose POC Glucose 259 H 204 H Lactic Acid Calcium Phosphorus Magnesium AST ALT Total Creatine Kinase CK-MB (CK-2) Total Protein Albumin Free T4 Arterial Blood Glucose Arterial Blood Ionized Calcium Urine WBC (Auto) Urine Creatinine Ur Total Protein 24 Hr Urine Total Protein Coronavirus (PCR) Crossmatch 06/26/20 06/26/20 06/26/20 07:18 07:18 09:18 WBC RBC Hgb Hct MCV MCH MCHC RDW Lymph % (Auto) [place] % (Auto) [place] # (Auto) Seg Neutrophils % Seg Neuts % (Manual) Lymphocytes % (Manual) Monocytes % (Manual) Nucleated RBC % Seg Neutrophils # Seg Neutrophils # Man Lymphocytes # (Manual) Monocytes # (Manual) Basophils # (Manual) PT INR APTT ABG pH POC ABG pO2 ABG Hemoglobin ABG Oxyhemoglobin ABG Sodium ABG Potassium ABG Glucose VBG pH Carboxyhemoglobin Sodium Potassium 3.0 L Chloride Carbon Dioxide BUN 46 H Creatinine 3.7 H Glucose 234 H POC Glucose 235 H Lactic Acid Calcium 8.2 L Phosphorus Magnesium AST ALT Total Creatine Kinase 1353 H CK-MB (CK-2) Total Protein Albumin Free T4 Arterial Blood Glucose Arterial Blood Ionized Calcium Urine WBC (Auto) Urine Creatinine Ur Total Protein 24 Hr Urine Total Protein Coronavirus (PCR) Crossmatch 06/26/20 06/26/20 06/26/20 13:18 16:48 21:57 WBC RBC Hgb Hct MCV MCH MCHC RDW Lymph % (Auto) [place] % (Auto) [place] # (Auto) Seg Neutrophils % Seg Neuts % (Manual) Lymphocytes % (Manual) Monocytes % (Manual) Nucleated RBC % Seg Neutrophils # Seg Neutrophils # Man Lymphocytes # (Manual) Monocytes # (Manual) Basophils # (Manual) PT INR APTT ABG pH POC ABG pO2 ABG Hemoglobin ABG Oxyhemoglobin ABG Sodium ABG Potassium ABG Glucose VBG pH Carboxyhemoglobin Sodium Potassium Chloride Carbon Dioxide BUN Creatinine Glucose POC Glucose 175 H 205 H 201 H Lactic Acid Calcium Phosphorus Magnesium AST ALT Total Creatine Kinase CK-MB (CK-2) Total Protein Albumin Free T4 Arterial Blood Glucose Arterial Blood Ionized Calcium Urine WBC (Auto) Urine Creatinine Ur Total Protein 24 Hr Urine Total Protein Coronavirus (PCR) Crossmatch 06/27/20 06/27/20 06/27/20 03:51 07:10 07:10 WBC 13.3 H RBC 2.30 L Hgb 6.3 L Hct 19.4 L* MCV MCH 27 L MCHC RDW Lymph % (Auto) [place] % (Auto) [place] # (Auto) Seg Neutrophils % Seg Neuts % (Manual) 77.0 H Lymphocytes % (Manual) 13.0 L Monocytes % (Manual) Nucleated RBC % 1.0 H Seg Neutrophils # Seg Neutrophils # Man 10.2 H Lymphocytes # (Manual) Monocytes # (Manual) 0.9 H Basophils # (Manual) PT INR APTT ABG pH POC ABG pO2 ABG Hemoglobin ABG Oxyhemoglobin ABG Sodium ABG Potassium ABG Glucose VBG pH Carboxyhemoglobin Sodium Potassium 3.1 L Chloride Carbon Dioxide 31 H BUN 36 H Creatinine 3.2 H Glucose 176 H POC Glucose 208 H Lactic Acid Calcium Phosphorus Magnesium AST ALT Total Creatine Kinase CK-MB (CK-2) Total Protein Albumin Free T4 Arterial Blood Glucose Arterial Blood Ionized Calcium Urine WBC (Auto) Urine Creatinine Ur Total Protein 24 Hr Urine Total Protein Coronavirus (PCR) Crossmatch 06/27/20 06/27/20 06/27/20 07:10 07:43 09:41 WBC RBC Hgb Hct MCV MCH MCHC RDW Lymph % (Auto) [place] % (Auto) [place] # (Auto) Seg Neutrophils % Seg Neuts % (Manual) Lymphocytes % (Manual) Monocytes % (Manual) Nucleated RBC % Seg Neutrophils # Seg Neutrophils # Man Lymphocytes # (Manual) Monocytes # (Manual) Basophils # (Manual) PT INR APTT ABG pH POC ABG pO2 ABG Hemoglobin ABG Oxyhemoglobin ABG Sodium ABG Potassium ABG Glucose VBG pH Carboxyhemoglobin Sodium Potassium Chloride Carbon Dioxide BUN Creatinine Glucose POC Glucose 155 H 328 H Lactic Acid Calcium Phosphorus Magnesium AST ALT Total Creatine Kinase 801 H CK-MB (CK-2) Total Protein Albumin Free T4 Arterial Blood Glucose Arterial Blood Ionized Calcium Urine WBC (Auto) Urine Creatinine Ur Total Protein 24 Hr Urine Total Protein Coronavirus (PCR) Crossmatch 06/27/20 06/27/20 06/27/20 10:54 16:01 20:13 WBC RBC Hgb Hct MCV MCH MCHC RDW Lymph % (Auto) [place] % (Auto) [place] # (Auto) Seg Neutrophils % Seg Neuts % (Manual) Lymphocytes % (Manual) Monocytes % (Manual) Nucleated RBC % Seg Neutrophils # Seg Neutrophils # Man Lymphocytes # (Manual) Monocytes # (Manual) Basophils # (Manual) PT INR APTT ABG pH POC ABG pO2 ABG Hemoglobin ABG Oxyhemoglobin ABG Sodium ABG Potassium ABG Glucose VBG pH Carboxyhemoglobin Sodium Potassium Chloride Carbon Dioxide BUN Creatinine Glucose POC Glucose 394 H Lactic Acid Calcium Phosphorus Magnesium AST ALT Total Creatine Kinase 580 H CK-MB (CK-2) Total Protein Albumin Free T4 Arterial Blood Glucose Arterial Blood Ionized Calcium Urine WBC (Auto) Urine Creatinine Ur Total Protein 24 Hr Urine Total Protein Coronavirus (PCR) Crossmatch See Detail 06/27/20 06/28/20 06/28/20 21:49 04:17 07:12 WBC 13.4 H RBC 2.49 L Hgb 6.6 L Hct 20.5 L MCV 83 L MCH 27 L MCHC RDW 15.7 H Lymph % (Auto) [place] % (Auto) [place] # (Auto) Seg Neutrophils % Seg Neuts % (Manual) 71.0 H Lymphocytes % (Manual) Monocytes % (Manual) Nucleated RBC % Seg Neutrophils # Seg Neutrophils # Man 9.5 H Lymphocytes # (Manual) Monocytes # (Manual) Basophils # (Manual) PT INR APTT ABG pH POC ABG pO2 ABG Hemoglobin ABG Oxyhemoglobin ABG Sodium ABG Potassium ABG Glucose VBG pH Carboxyhemoglobin Sodium Potassium Chloride Carbon Dioxide BUN Creatinine Glucose POC Glucose 227 H 201 H Lactic Acid Calcium Phosphorus Magnesium AST ALT Total Creatine Kinase CK-MB (CK-2) Total Protein Albumin Free T4 Arterial Blood Glucose Arterial Blood Ionized Calcium Urine WBC (Auto) Urine Creatinine Ur Total Protein 24 Hr Urine Total Protein Coronavirus (PCR) Crossmatch 06/28/20 06/28/20 06/28/20 07:12 07:12 16:12 WBC RBC Hgb Hct MCV MCH MCHC RDW Lymph % (Auto) [place] % (Auto) [place] # (Auto) Seg Neutrophils % Seg Neuts % (Manual) Lymphocytes % (Manual) Monocytes % (Manual) Nucleated RBC % Seg Neutrophils # Seg Neutrophils # Man Lymphocytes # (Manual) Monocytes # (Manual) Basophils # (Manual) PT INR APTT ABG pH POC ABG pO2 ABG Hemoglobin ABG Oxyhemoglobin ABG Sodium ABG Potassium ABG Glucose VBG pH Carboxyhemoglobin Sodium Potassium 3.1 L Chloride Carbon Dioxide 33 H BUN 43 H Creatinine 3.4 H Glucose 261 H POC Glucose 143 H Lactic Acid Calcium Phosphorus Magnesium AST ALT Total Creatine Kinase 418 H CK-MB (CK-2) Total Protein Albumin Free T4 Arterial Blood Glucose Arterial Blood Ionized Calcium Urine WBC (Auto) Urine Creatinine Ur Total Protein 24 Hr Urine Total Protein Coronavirus (PCR) Crossmatch 06/28/20 06/28/20 06/28/20 20:48 23:22 23:22 WBC 12.7 H RBC 2.41 L Hgb 6.6 L Hct 20.0 L MCV 83 L MCH 27 L MCHC RDW 16.0 H Lymph % (Auto) [place] % (Auto) 9.7 H [place] # (Auto) 1.2 H Seg Neutrophils % Seg Neuts % (Manual) Lymphocytes % (Manual) Monocytes % (Manual) Nucleated RBC % Seg Neutrophils # 8.8 H Seg Neutrophils # Man Lymphocytes # (Manual) Monocytes # (Manual) Basophils # (Manual) PT INR APTT ABG pH POC ABG pO2 ABG Hemoglobin ABG Oxyhemoglobin ABG Sodium ABG Potassium ABG Glucose VBG pH Carboxyhemoglobin Sodium Potassium Chloride Carbon Dioxide BUN Creatinine Glucose POC Glucose 300 H Lactic Acid Calcium Phosphorus Magnesium AST ALT Total Creatine Kinase 341 H CK-MB (CK-2) Total Protein Albumin Free T4 Arterial Blood Glucose Arterial Blood Ionized Calcium Urine WBC (Auto) Urine Creatinine Ur Total Protein 24 Hr Urine Total Protein Coronavirus (PCR) Crossmatch 06/29/20 06/29/20 06/29/20 05:09 07:33 07:33 WBC 11.8 H RBC 2.39 L Hgb 6.4 L Hct 19.7 L* MCV 82 L MCH 27 L MCHC RDW 15.9 H Lymph % (Auto) [place] % (Auto) 11.4 H [place] # (Auto) 1.4 H Seg Neutrophils % Seg Neuts % (Manual) Lymphocytes % (Manual) Monocytes % (Manual) Nucleated RBC % Seg Neutrophils # 8.2 H Seg Neutrophils # Man Lymphocytes # (Manual) Monocytes # (Manual) Basophils # (Manual) PT INR APTT ABG pH POC ABG pO2 ABG Hemoglobin ABG Oxyhemoglobin ABG Sodium ABG Potassium ABG Glucose VBG pH Carboxyhemoglobin Sodium Potassium 3.1 L Chloride Carbon Dioxide 31 H BUN 30 H Creatinine 2.6 H Glucose 204 H POC Glucose 193 H Lactic Acid Calcium Phosphorus Magnesium AST ALT Total Creatine Kinase CK-MB (CK-2) Total Protein Albumin Free T4 Arterial Blood Glucose Arterial Blood Ionized Calcium Urine WBC (Auto) Urine Creatinine Ur Total Protein 24 Hr Urine Total Protein Coronavirus (PCR) Crossmatch 06/29/20 06/29/20 06/29/20 07:33 10:43 11:14 WBC RBC Hgb Hct MCV MCH MCHC RDW Lymph % (Auto) [place] % (Auto) [place] # (Auto) Seg Neutrophils % Seg Neuts % (Manual) Lymphocytes % (Manual) Monocytes % (Manual) Nucleated RBC % Seg Neutrophils # Seg Neutrophils # Man Lymphocytes # (Manual) Monocytes # (Manual) Basophils # (Manual) PT INR APTT ABG pH POC ABG pO2 ABG Hemoglobin ABG Oxyhemoglobin ABG Sodium ABG Potassium ABG Glucose VBG pH Carboxyhemoglobin Sodium Potassium Chloride Carbon Dioxide BUN Creatinine Glucose POC Glucose 324 H Lactic Acid Calcium Phosphorus Magnesium AST ALT Total Creatine Kinase 290 H CK-MB (CK-2) Total Protein Albumin Free T4 Arterial Blood Glucose Arterial Blood Ionized Calcium Urine WBC (Auto) Urine Creatinine Ur Total Protein 24 Hr Urine Total Protein Coronavirus (PCR) Positive A Crossmatch 06/29/20 06/29/20 06/30/20 17:07 22:36 07:42 WBC RBC Hgb Hct MCV MCH MCHC RDW Lymph % (Auto) [place] % (Auto) [place] # (Auto) Seg Neutrophils % Seg Neuts % (Manual) Lymphocytes % (Manual) Monocytes % (Manual) Nucleated RBC % Seg Neutrophils # Seg Neutrophils # Man Lymphocytes # (Manual) Monocytes # (Manual) Basophils # (Manual) PT INR APTT ABG pH POC ABG pO2 ABG Hemoglobin ABG Oxyhemoglobin ABG Sodium ABG Potassium ABG Glucose VBG pH Carboxyhemoglobin Sodium Potassium Chloride Carbon Dioxide BUN Creatinine Glucose POC Glucose 262 H 316 H 226 H Lactic Acid Calcium Phosphorus Magnesium AST ALT Total Creatine Kinase CK-MB (CK-2) Total Protein Albumin Free T4 Arterial Blood Glucose Arterial Blood Ionized Calcium Urine WBC (Auto) Urine Creatinine Ur Total Protein 24 Hr Urine Total Protein Coronavirus (PCR) Crossmatch 06/30/20 06/30/20 06/30/20 08:16 08:16 11:59 WBC RBC Hgb 10.6 L D Hct 31.7 L D MCV MCH MCHC RDW 15.4 H Lymph % (Auto) [place] % (Auto) [place] # (Auto) Seg Neutrophils % Seg Neuts % (Manual) Lymphocytes % (Manual) Monocytes % (Manual) 10.0 H Nucleated RBC % 1.0 H Seg Neutrophils # Seg Neutrophils # Man Lymphocytes # (Manual) Monocytes # (Manual) 1.0 H Basophils # (Manual) PT INR APTT ABG pH POC ABG pO2 ABG Hemoglobin ABG Oxyhemoglobin ABG Sodium ABG Potassium ABG Glucose VBG pH Carboxyhemoglobin Sodium Potassium 3.3 L Chloride Carbon Dioxide BUN 34 H Creatinine 2.4 H Glucose 238 H POC Glucose 220 H Lactic Acid Calcium Phosphorus Magnesium AST ALT Total Creatine Kinase CK-MB (CK-2) Total Protein Albumin Free T4 Arterial Blood Glucose Arterial Blood Ionized Calcium Urine WBC (Auto) Urine Creatinine Ur Total Protein 24 Hr Urine Total Protein Coronavirus (PCR) Crossmatch 06/30/20 06/30/20 07/01/20 17:31 21:25 04:45 WBC RBC 3.41 L Hgb 9.6 L Hct 28.7 L MCV MCH MCHC RDW 15.4 H Lymph % (Auto) [place] % (Auto) 11.9 H [place] # (Auto) 1.3 H Seg Neutrophils % Seg Neuts % (Manual) Lymphocytes % (Manual) Monocytes % (Manual) Nucleated RBC % Seg Neutrophils # Seg Neutrophils # Man Lymphocytes # (Manual) Monocytes # (Manual) Basophils # (Manual) PT INR APTT ABG pH POC ABG pO2 ABG Hemoglobin ABG Oxyhemoglobin ABG Sodium ABG Potassium ABG Glucose VBG pH Carboxyhemoglobin Sodium Potassium Chloride Carbon Dioxide BUN Creatinine Glucose POC Glucose 211 H 150 H Lactic Acid Calcium Phosphorus Magnesium AST ALT Total Creatine Kinase CK-MB (CK-2) Total Protein Albumin Free T4 Arterial Blood Glucose Arterial Blood Ionized Calcium Urine WBC (Auto) Urine Creatinine Ur Total Protein 24 Hr Urine Total Protein Coronavirus (PCR) Crossmatch 07/01/20 07/01/20 07/01/20 04:45 07:37 11:14 WBC RBC Hgb Hct MCV MCH MCHC RDW Lymph % (Auto) [place] % (Auto) [place] # (Auto) Seg Neutrophils % Seg Neuts % (Manual) Lymphocytes % (Manual) Monocytes % (Manual) Nucleated RBC % Seg Neutrophils # Seg Neutrophils # Man Lymphocytes # (Manual) Monocytes # (Manual) Basophils # (Manual) PT INR APTT ABG pH POC ABG pO2 ABG Hemoglobin ABG Oxyhemoglobin ABG Sodium ABG Potassium ABG Glucose VBG pH Carboxyhemoglobin Sodium Potassium 3.1 L Chloride Carbon Dioxide BUN 32 H Creatinine 2.5 H Glucose 127 H POC Glucose 142 H 229 H Lactic Acid Calcium Phosphorus Magnesium AST ALT Total Creatine Kinase CK-MB (CK-2) Total Protein Albumin Free T4 Arterial Blood Glucose Arterial Blood Ionized Calcium Urine WBC (Auto) Urine Creatinine Ur Total Protein 24 Hr Urine Total Protein Coronavirus (PCR) Crossmatch 07/01/20 07/01/20 07/02/20 15:52 21:05 04:22 WBC RBC 3.18 L Hgb 9.0 L Hct 26.8 L MCV MCH MCHC RDW 15.6 H Lymph % (Auto) [place] % (Auto) 11.7 H [place] # (Auto) 1.2 H Seg Neutrophils % Seg Neuts % (Manual) Lymphocytes % (Manual) Monocytes % (Manual) Nucleated RBC % Seg Neutrophils # Seg Neutrophils # Man Lymphocytes # (Manual) Monocytes # (Manual) Basophils # (Manual) PT INR APTT ABG pH POC ABG pO2 ABG Hemoglobin ABG Oxyhemoglobin ABG Sodium ABG Potassium ABG Glucose VBG pH Carboxyhemoglobin Sodium Potassium Chloride Carbon Dioxide BUN Creatinine Glucose POC Glucose 183 H 219 H Lactic Acid Calcium Phosphorus Magnesium AST ALT Total Creatine Kinase CK-MB (CK-2) Total Protein Albumin Free T4 Arterial Blood Glucose Arterial Blood Ionized Calcium Urine WBC (Auto) Urine Creatinine Ur Total Protein 24 Hr Urine Total Protein Coronavirus (PCR) Crossmatch 01/08/21 01/08/21 01/08/21 04:22 07:42 11:19 WBC RBC Hgb Hct MCV MCH MCHC RDW Lymph % (Auto) [place] % (Auto) [place] # (Auto) Seg Neutrophils % Seg Neuts % (Manual) Lymphocytes % (Manual) Monocytes % (Manual) Nucleated RBC % Seg Neutrophils # Seg Neutrophils # Man Lymphocytes # (Manual) Monocytes # (Manual) Basophils # (Manual) PT INR APTT ABG pH POC ABG pO2 ABG Hemoglobin ABG Oxyhemoglobin ABG Sodium ABG Potassium ABG Glucose VBG pH Carboxyhemoglobin Sodium Potassium 3.2 L Chloride Carbon Dioxide BUN 26 H Creatinine 2.3 H Glucose 101 H POC Glucose 122 H 203 H Lactic Acid Calcium Phosphorus Magnesium AST ALT Total Creatine Kinase CK-MB (CK-2) Total Protein Albumin Free T4 Arterial Blood Glucose Arterial Blood Ionized Calcium Urine WBC (Auto) Urine Creatinine Ur Total Protein 24 Hr Urine Total Protein Coronavirus (PCR) Crossmatch Allied health notes reviewed: nursing
[2020-07-02] MEDS ORDERED: POTASSIUM CHLORIDE ER 20 MEQ TAB PO SCH (16:00)
[2020-07-02] MEDS: HEPARIN 5,000 UNIT/1 ML VIAL SUB-Q SCH ×2 (16:36→21:09)
[2020-07-03 04:44] VITALS: BP 105/65
[2020-07-03 06:32] LABS: Basophils % (Auto) 0.4 % (0.0-1.8); Eosinophils # (Auto) 0.1 K/mm3 (0.0-0.4); Eosinophils % (Auto) 1.2 % (0.0-4.3); Hematocrit 26.9 % (35.5-45.6); Hemoglobin 9.1 gm/dl (11.8-15.2); Lymphocytes # (Auto) 2.2 K/mm3 (1.2-5.4); Lymphocytes % (Auto) 22.2 % (13.4-35.0); Mean Corpuscular HGB Conc 34 % (32-34); Mean Corpuscular Volume 84 fl (84-94); Monocytes # (Auto) 1.3 K/mm3 (0.0-0.8); Platelet Count 228 K/mm3 (140-440); Red Cell Distribution Width 15.1 % (13.2-15.2)
[2020-07-03 06:51] LABS: Calcium 8.5 mg/dL (8.4-10.2)
[2020-07-03] MEDS: INSULIN LISPRO 100 UNIT/ML VIAL 3 mL SUB-Q SCH ×2 (07:30→11:30)
[2020-07-03] MEDS: INSULIN NPH/REGULAR 70/30 INJ SUB-Q SCH (07:30)
--- NOTE | 2020-07-03 08:44 | Progress Note ---
Assessment and Plan Assessment and plan: Sepsis Sepsis resolved COVID-19 infection toxic metabolic encephalopathy Resolved, continue current care, IDDM DKA resolved, sliding-scale insulin therapy, Accu-Chek, hypoglycemia protocol Insulin changed to Humulin 70/30 20 units twice a day for better control and compliance Rhabdomyolysis IV fluid resuscitation therapy, monitor urine output every shift, CK level improving today. Repeat CK in a.m. Creatinine kinase every 12 hours reordered Improved End stage renal disease Hemodialysis catheter placed as per vascular surgery team, dialysis as per renal team. Avoid nephrotoxic agents. Nephrology recommends outpatient hemodialysis. Covid screening was positive Anemia of ESRD Patient has received 2 units PRBCs DVT prophylaxis SCD to bilateral lower extremities while in bed, prophylactic anticoagulation 06/30/2020. Awaiting for outpatient hemodialysis arrangements. Problematic placement because patient tested Covid positive. Case management following closely. 07/01/2020. Awaiting for outpatient hemodialysis arrangements. Problematic placement because patient tested Covid positive. Case management following closely. 07/02/2020. Nephrology reports if patient is nonoliguric and renal function re elsa stable dialysis can be stopped altogether. As of today there is no acute indication for renal replacement therapy. We will continue to hold dialysis and monitor renal function. Replace the potassium level - Patient Problems (1) YUNI (acute kidney injury) Current Visit: Yes Status: Acute (2) DKA (diabetic ketoacidoses) Current Visit: Yes Status: Acute Qualifiers: Diabetes mellitus complication detail: with coma (3) End stage renal disease Current Visit: Yes Status: Acute (4) Rhabdomyolysis Current Visit: Yes Status: Acute Qualifiers: Encounter type: initial encounter (5) Sepsis Current Visit: Yes Status: Acute (6) Toxic metabolic encephalopathy Current Visit: Yes Status: Acute History Interval history: No new issues overnight Hospitalist Physical - Constitutional Vitals: Temp Pulse Resp BP Pulse Ox 99.0 F 95 H 20 105/65 95 07/03/20 04:42 07/03/20 04:42 07/03/20 04:42 07/03/20 04:42 07/03/20 04:42 General appearance: Present: no acute distress, well-nourished - EENT Eyes: Present: PERRL, EOM intact ENT: hearing intact, clear oral mucosa, dentition normal - Neck Neck: Present: supple, normal ROM - Respiratory Respiratory effort: normal Respiratory: bilateral: CTA - Cardiovascular Rhythm: regular Heart Sounds: Present: S1 & S2. Absent: gallop, rub - Extremities Extremities: no ischemia, No edema, Full ROM - Abdominal General gastrointestinal: soft, non-tender, non-distended, normal bowel sounds - Integumentary Integumentary: Present: clear, warm, dry - Neurologic Neurologic: CNII-XII intact, moves all extremities HEART Score - HEART Score Troponin: Troponin T < 0.010 ng/mL (0.00-0.029) 06/17/20 11:24 Results - Labs CBC & Chem 7: 07/03/20 05:29 07/03/20 05:29 Labs: Laboratory Last Values WBC 9.7 K/mm3 (4.5-11.0) 07/03/20 05:29 RBC 3.20 M/mm3 (3.65-5.03) L 07/03/20 05:29 Hgb 9.1 gm/dl (11.8-15.2) L 07/03/20 05:29 Hct 26.9 % (35.5-45.6) L 07/03/20 05:29 MCV 84 fl (84-94) 07/03/20 05:29 MCH 28 pg (28-32) 07/03/20 05:29 MCHC 34 % (32-34) 07/03/20 05:29 RDW 15.1 % (13.2-15.2) 07/03/20 05:29 Plt Count 228 K/mm3 (140-440) 07/03/20 05:29 Lymph % (Auto) 22.2 % (13.4-35.0) 07/03/20 05:29 Williams % (Auto) 13.0 % (0.0-7.3) H 07/03/20 05:29 Eos % (Auto) 1.2 % (0.0-4.3) 07/03/20 05:29 Baso % (Auto) 0.4 % (0.0-1.8) 07/03/20 05:29 Lymph # (Auto) 2.2 K/mm3 (1.2-5.4) 07/03/20 05:29 Williams # (Auto) 1.3 K/mm3 (0.0-0.8) H 07/03/20 05:29 Eos # (Auto) 0.1 K/mm3 (0.0-0.4) 07/03/20 05:29 Baso # (Auto) 0.0 K/mm3 (0.0-0.1) 07/03/20 05:29 Add Manual Diff Complete 06/30/20 08:16 Total Counted 100 06/30/20 08:16 Seg Neutrophils % 63.2 % (40.0-70.0) 07/03/20 05:29 Seg Neuts % (Manual) 69.0 % (40.0-70.0) 06/30/20 08:16 Band Neutrophils % 2.0 % 06/30/20 08:16 Lymphocytes % (Manual) 16.0 % (13.4-35.0) 06/30/20 08:16 Monocytes % (Manual) 10.0 % (0.0-7.3) H 06/30/20 08:16 Eosinophils % (Manual) 1.0 % (0.0-4.3) 06/28/20 07:12 Basophils % (Manual) 1.0 % (0.0-1.8) 06/27/20 07:10 Metamyelocytes % 3.0 % 06/30/20 08:16 Myelocytes % 3.0 % 06/28/20 07:12 Nucleated RBC % 1.0 % (0.0-0.9) H 06/30/20 08:16 Seg Neutrophils # 6.1 K/mm3 (1.8-7.7) 07/03/20 05:29 Seg Neutrophils # Man 7.0 K/mm3 (1.8-7.7) 06/30/20 08:16 Band Neutrophils # 0.2 K/mm3 06/30/20 08:16 Lymphocytes # (Manual) 1.6 K/mm3 (1.2-5.4) 06/30/20 08:16 Abs React Lymphs (Man) 0.0 K/mm3 06/30/20 08:16 Monocytes # (Manual) 1.0 K/mm3 (0.0-0.8) H 06/30/20 08:16 Eosinophils # (Manual) 0.0 K/mm3 (0.0-0.4) 06/30/20 08:16 Basophils # (Manual) 0.0 K/mm3 (0.0-0.1) 06/30/20 08:16 Metamyelocytes # 0.3 K/mm3 06/30/20 08:16 Myelocytes # 0.0 K/mm3 06/30/20 08:16 Promyelocytes # 0.0 K/mm3 06/30/20 08:16 Blast Cells # 0.0 K/mm3 06/30/20 08:16 WBC Morphology Not Reportable 06/30/20 08:16 Hypersegmented Neuts Not Reportable 06/30/20 08:16 Hyposegmented Neuts Not Reportable 06/30/20 08:16 Hypogranular Neuts Not Reportable 06/30/20 08:16 Smudge Cells Not Reportable 06/30/20 08:16 Toxic Granulation Not Reportable 06/30/20 08:16 Toxic Vacuolation Not Reportable 06/30/20 08:16 Dohle Bodies Not Reportable 06/30/20 08:16 Pelger-Huet Anomaly Not Reportable 06/30/20 08:16 Seth Rods Not Reportable 06/30/20 08:16 Platelet Estimate Consistent w auto 06/30/20 08:16 Clumped Platelets Not Reportable 06/30/20 08:16 Plt Clumps, EDTA Not Reportable 06/30/20 08:16 Large Platelets Not Reportable 06/30/20 08:16 Giant Platelets Not Reportable 06/30/20 08:16 Platelet Satelliting Not Reportable 06/30/20 08:16 Plt Morphology Comment Not Reportable 06/30/20 08:16 RBC Morphology Not Reportable 06/30/20 08:16 Dimorphic RBCs Not Reportable 06/30/20 08:16 Polychromasia Few 06/30/20 08:16 Hypochromasia Not Reportable 06/30/20 08:16 Poikilocytosis Not Reportable 06/30/20 08:16 Anisocytosis 1+ 06/30/20 08:16 Microcytosis Not Reportable 06/30/20 08:16 Macrocytosis Not Reportable 06/30/20 08:16 Spherocytes Not Reportable 06/30/20 08:16 Pappenheimer Bodies Not Reportable 06/30/20 08:16 Sickle Cells Not Reportable 06/30/20 08:16 Target Cells Not Reportable 06/30/20 08:16 Tear Drop Cells Not Reportable 06/30/20 08:16 Ovalocytes Not Reportable 06/30/20 08:16 Helmet Cells Not Reportable 06/30/20 08:16 Yo-Casas Bodies Not Reportable 06/30/20 08:16 [place] Rings Not Reportable 06/30/20 08:16 [place] Cells Not Reportable 06/30/20 08:16 Bite Cells Not Reportable 06/30/20 08:16 Crenated Cell Not Reportable 06/30/20 08:16 Elliptocytes Not Reportable 06/30/20 08:16 Acanthocytes (Spur) Not Reportable 06/30/20 08:16 Rouleaux Not Reportable 06/30/20 08:16 Hemoglobin C Crystals Not Reportable 06/30/20 08:16 Schistocytes Not Reportable 06/30/20 08:16 Malaria parasites Not Reportable 06/30/20 08:16 Mick Bodies Not Reportable 06/30/20 08:16 Hem Pathologist Commnt No 06/30/20 08:16 PT 22.1 Sec. (12.2-14.9) H 06/17/20 11:24 INR 1.92 (0.87-1.13) H 06/17/20 11:24 APTT 38.9 Sec. (24.2-36.6) H 06/17/20 11:24 ABG pH 7.545 (7.320-7.450) H 06/24/20 16:17 POC ABG pCO2 34.2 mmHg (32.0-48.0) 06/24/20 16:17 POC ABG pO2 68.9 mmHg (83-108) L 06/24/20 16:17 POC ABG HCO3 28.9 06/24/20 16:17 POC ABG Base Excess 6.0 06/24/20 16:17 ABG Hemoglobin 6.8 (12.0-17.5) L 06/24/20 16:17 ABG Oxyhemoglobin 92.4 (94-98) L 06/24/20 16:17 ABG Methemoglobin 0.3 (0.0-1.5) 06/24/20 16:17 ABG Sodium 135.1 mmol/L (136.0-145.0) L 06/24/20 16:17 ABG Potassium 3.0 mmol/L (3.40-4.50) L 06/24/20 16:17 ABG Chloride 101.0 mmol/L (98-107) 06/24/20 16:17 ABG Glucose 199 mg/dL (65-95) H 06/24/20 16:17 VBG pH 7.123 (7.320-7.420) L* 06/17/20 11:24 Carboxyhemoglobin 1.7 (0.5-1.5) H 06/24/20 16:17 FiO2 21 06/24/20 16:17 Sodium 144 mmol/L (137-145) 07/03/20 05:29 Potassium 3.5 mmol/L (3.6-5.0) L 07/03/20 05:29 Chloride 107.5 mmol/L (98-107) H 07/03/20 05:29 Carbon Dioxide 29 mmol/L (22-30) 07/03/20 05:29 Anion Gap 11 mmol/L 07/03/20 05:29 BUN 23 mg/dL (9-20) H 07/03/20 05:29 Creatinine 2.0 mg/dL (0.8-1.3) H 07/03/20 05:29 Estimated GFR 44 ml/min 07/03/20 05:29 BUN/Creatinine Ratio 12 % 07/03/20 05:29 Glucose 112 mg/dL (75-100) H 07/03/20 05:29 POC Glucose 122 mg/dL (70-105) H 07/03/20 07:34 Lactic Acid 1.40 mmol/L (0.7-2.0) 06/20/20 05:08 Calcium 8.5 mg/dL (8.4-10.2) 07/03/20 05:29 Phosphorus 6.70 mg/dL (2.5-4.5) H 06/20/20 19:43 Magnesium 4.50 mg/dL (1.7-2.3) H 06/17/20 15:33 Total Bilirubin 0.60 mg/dL (0.1-1.2) 06/20/20 14:47 AST 149 units/L (5-40) H 06/20/20 14:47 ALT 89 units/L (7-56) H 06/20/20 14:47 Alkaline Phosphatase 60 units/L (35-129) 06/20/20 14:47 Ammonia 56.0 umol/L (25-60) 06/17/20 11:24 Total Creatine Kinase 290 units/L (55-170) H 06/29/20 07:33 CK-MB (CK-2) 7.9 ng/mL (0.0-4.0) H 06/17/20 11:24 CK-MB (CK-2) Rel Index 0.1 (0-4) 06/17/20 11:24 Troponin T < 0.010 ng/mL (0.00-0.029) 06/17/20 11:24 Total Protein 5.9 g/dL (6.3-8.2) L D 06/20/20 14:47 Albumin 2.3 g/dL (3.9-5) L 06/20/20 14:47 Albumin/Globulin Ratio 0.6 % 06/20/20 14:47 Procalcitonin 8.18 ng/mL (<0.15) 06/18/20 21:36 TSH 0.914 mlU/mL (0.270-4.200) 06/17/20 11:24 Free T4 1.65 ng/dL (0.76-1.46) H 06/17/20 11:24 PTH Intact 25.17 pg/mL (15-65) 06/25/20 08:30 Arterial Blood Glucose 199 mg/dL (65-95) H 06/24/20 16:17 Arterial Blood Ionized Calcium 4.3 mg/dL (4.6-5.3) L 06/24/20 16:17 Urine Color Yellow (Yellow) 06/17/20 Unknown Urine Turbidity Slightly-cloudy (Clear) 06/17/20 Unknown Urine pH 5.0 (5.0-7.0) 06/17/20 Unknown Ur Specific [place] 1.022 (1.003-1.030) 06/17/20 Unknown Urine Protein 100 mg/dl mg/dL (Negative) 06/17/20 Unknown Urine Glucose (UA) >=500 mg/dL (Negative) 06/17/20 Unknown Urine Ketones Neg mg/dL (Negative) 06/17/20 Unknown Urine Blood Lg (Negative) 06/17/20 Unknown Urine Nitrite Neg (Negative) 06/17/20 Unknown Urine Bilirubin Neg (Negative) 06/17/20 Unknown Urine Urobilinogen < 2.0 mg/dL (<2.0) 06/17/20 Unknown Ur Leukocyte Esterase Neg (Negative) 06/17/20 Unknown Urine WBC (Auto) 7.0 /HPF (0.0-6.0) H 06/17/20 Unknown Urine RBC (Auto) 5.0 /HPF (0.0-6.0) 06/17/20 Unknown U Epithel Cells (Auto) < 1.0 /HPF (0-13.0) 06/17/20 Unknown Urine Mucus Few /HPF 06/17/20 Unknown Urine Total Volume 1400 ml 06/25/20 16:58 Urine Creatinine 73.8 mg/dL (0.1-20.0) H 06/25/20 16:58 Ur Creatinine 24 Hour 1.0 (0.8-2.8) 06/25/20 16:58 Ur Total Protein 24 Hr 644.00 mg/dL (2-200) H 06/25/20 16:58 Urine Total Protein 46 mg/dL (5-11.8) H 06/25/20 16:58 Urine Opiates Screen Presumptive negative 06/19/20 19:00 Urine Methadone Screen Presumptive negative 06/19/20 19:00 Ur Barbiturates Screen Presumptive negative 06/19/20 19:00 Ur Phencyclidine Scrn Presumptive negative 06/19/20 19:00 Ur Amphetamines Screen Presumptive negative 06/19/20 19:00 U Benzodiazepines Scrn Presumptive negative 06/19/20 19:00 Urine Cocaine Screen Presumptive negative 06/19/20 19:00 U Marijuana (THC) Screen Presumptive negative 06/19/20 19:00 Drugs of Abuse Note Disclamer 06/19/20 19:00 Plasma/Serum Alcohol < 0.01 % (0-0.07) 06/17/20 11:24 Coronavirus (PCR) Positive (Negative) A 06/29/20 10:43 Hepatitis A IgM Ab Non-reactive (NonReactive) 06/20/20 19:43 Hep Bs Antigen Non-reactive (Negative) 06/20/20 19:43 Hep B Core IgM Ab Non-reactive (NonReactive) 06/20/20 19:43 Hepatitis C Antibody Non-reactive (NonReactive) 06/20/20 19:43 Blood Type B POSITIVE 06/27/20 10:54 Antibody Screen Negative 06/27/20 10:54 Crossmatch See Detail 06/27/20 10:54 Garcia/IV: Voiding Method Urinal IV Catheter Type [Left Forearm INT / Saline Lock ] IV Catheter Type [Left Peripheral IV Antecubital] IV Catheter Type [Right VAS Cath Internal Jugular] IV Catheter Type [Left Hand] INT / Saline Lock IV Catheter Type [Right INT / Saline Lock Antecubital] Active Medications - Current Medications Current Medications: Generic Name Dose Route Start Last Admin Trade Name Freq PRN Reason Stop Dose Admin Acetaminophen 650 mg 06/17/20 13:40 06/25/20 15:09 Acetaminophen 325 Mg Tab PO 650 mg Q6H PRN Administration Pain, Mild (1-3) Albuterol 2.5 mg 06/17/20 13:40 Albuterol 2.5 Mg/3 Ml Nebu IH Q3HRT PRN Shortness Of Breath Dextrose 50 ml 06/19/20 15:28 Dextrose 50% In Water (25gm) 50 Ml Syringe IV Q30MIN PRN Hypoglycemia Protocol Epoetin Germán 20,000 unit 06/25/20 08:16 Epoetin Germán 20,000 Unit/1 Ml Inj IV MARIELLE PRN hemodialysis Famotidine 20 mg 06/19/20 10:00 07/02/20 09:45 Famotidine 20 Mg Tab PO 20 mg QDAY JERMAINE Administration Heparin Sodium (Porcine) 5,000 unit 06/17/20 22:00 07/02/20 21:09 Heparin 5,000 Unit/1 Ml Vial SUB-Q 5,000 unit Q12HR JERMAINE Administration Hydromorphone HCl 0.25 mg 06/17/20 13:40 06/22/20 23:58 Hydromorphone 1 Mg/1 Ml Inj IV 0.25 mg Q4H PRN Administration Pain, Moderate (4-6) Sodium Chloride 100 mls @ 999 mls/hr 06/24/20 12:00 Nacl 0.9% IV MARIELLE PRN Hypotension Insulin Human Isoph/Insulin Regular 20 unit 06/28/20 08:00 07/03/20 07:30 Insulin Nph/Regular 70/30 Inj SUB-Q 20 unit BIDDIAB JERMAINE Administration Insulin Human Lispro 0 unit 06/29/20 11:30 07/03/20 07:30 Insulin Lispro 100 Unit/Ml Vial 3 Ml SUB-Q Not Given ACHS JERMAINE Protocol Sodium Bicarbonate 650 mg 06/29/20 22:00 07/02/20 21:01 Sodium Bicarbonate 650 Mg Tab PO 650 mg BID JERMAINE Administration Sodium Chloride 10 ml 06/17/20 22:00 07/02/20 21:12 Sodium Chloride 0.9% 10 Ml Flush Syringe IV 10 ml BID JERMAINE Administration Sodium Chloride 10 ml 06/17/20 13:40 Sodium Chloride 0.9% 10 Ml Flush Syringe IV PRN PRN LINE FLUSH Nutrition/Malnutrition Assess - Dietary Evaluation Nutrition/Malnutrition Findings: Nutrition Notes Start: 06/24/20 12:21 Freq: Status: Active Protocol: Document 06/24/20 12:21 LM (Rec: 06/24/20 12:24 LM [id number]) Nutrition Notes Current Diagnosis Acute Kidney Injury,CKD (stage V CKD),Diabetes,Sepsis Other Pertinent Diagnosis Rhabdomyolysis Current Diet Renal Labs/Tests BUN 102 Cr 7.1 BG 324 Pertinent Medications Humalog Height 5 ft 10 in Weight 82.6 kg [place] Body Weight (kg) 75.45 BMI 26.1 Weight Status Overweight Subjective/Other Information Screen for LOS. 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 Nutrition Intervention Revisit per MD consult or patient Sign Off request:
[2020-07-03] MEDS ORDERED: POTASSIUM CHLORIDE ER 20 MEQ TAB PO SCH (10:00)
[2020-07-03] MEDS: HEPARIN 5,000 UNIT/1 ML VIAL SUB-Q SCH (10:22)
[2020-07-03] MEDS: SODIUM BICARBONATE 650 MG TAB PO SCH (10:23)
[2020-07-03] MEDS: FAMOTIDINE 20 MG TAB PO SCH (10:23)
--- NOTE | 2020-07-03 11:34 | Progress Note ---
Assessment and Plan Assessment * Acute kidney injury vs advanced CKD, unknown previous baseline * Uremia * Severe hypernatremia * Hyperkalemia * Rhabdomyolysis, severe * Acidosis * Acute encephalopathy * Sepsis * DKA * Anemia * COVID-19 positive Recommendations * Creatinine 2.6->2.4> 2.0 off HD; last dialysis was on 06/28/2020. * S/p Garcia, strict I's/O * 24hr [id number] with 1300ml UOP over past 24 hours, continue to monitor for renal recovery * anemia improved s/p PRBCs * Reviewed prior imaging * DKA protocol per primary * Renally dose medications * Avoid nephrotoxins * Patient is currently nonoliguric and her serum creatinine is trending down. Do not anticipate need for any further dialysis at this time. Last dialysis treatment was on 06/28/2020. No objection to discharge from renal standpoint. His Vas-Cath will need to be removed prior to discharge. Discussed with patient's nurse Subjective Date of service: 07/03/20 Principal diagnosis: DKA; Ac encephalopathy; Severe sepsis; Rhabdomyolysis; YUNI. Interval history: Patient is comfortable this morning. Denies any shortness of breath. No nausea vomiting or diarrhea. Patient states that he is putting good amount of urine Objective - Vital Signs Vital signs: Vital Signs - 12hr 07/03/20 04:42 Temperature 99.0 F Pulse Rate 95 H Respiratory 20 Rate Blood Pressure 105/65 O2 Sat by Pulse 95 Oximetry - General Appearance General appearance: well-developed, well-nourished, appears stated age EENT: PERRL, mucous membranes moist Neck: no JVD, no thyromegaly, no carotid bruit, supple, other (Right IJ Vas-Cath in place) Respiratory: Present: Clear to Ascultation Cardiology: regular, normal heart rate, S1S2, no murmurs Gastrointestinal: normal, normoactive bowel sounds Integumentary: no rash, other (No edema) - Lab 07/03/20 05:29 07/03/20 05:29 Most recent lab results ABG pH 7.545 (7.320-7.450) H 06/24/20 16:17 Calcium 8.5 mg/dL (8.4-10.2) 07/03/20 05:29 Phosphorus 6.70 mg/dL (2.5-4.5) H 06/20/20 19:43 Magnesium 4.50 mg/dL (1.7-2.3) H 06/17/20 15:33 Urine Creatinine 73.8 mg/dL (0.1-20.0) H 06/25/20 16:58 Ur Total Protein 24 Hr 644.00 mg/dL (2-200) H 06/25/20 16:58 Urine Total Protein 46 mg/dL (5-11.8) H 06/25/20 16:58 Medications & Allergies - Medications Allergies/Adverse Reactions: Allergies No Known Allergies Allergy (Unverified 06/21/20 20:38) Home Medications: Home Medications Medication Instructions Recorded Confirmed Last Taken Type Atenolol 50 mg PO DAILY #30 06/29/20 Unknown Rx Epoetin Germán 20,000 Unit [Procrit] 20,000 unit IV MARIELLE PRN vial 06/29/20 Unknown Rx Insulin Degludec [Tresiba 52 unit SQ QHS 30 Days 06/29/20 Unknown Rx Flextouch U-200] Insulin Lispro [Humalog Kwikpen 15 units SQ AC 30 Days 06/29/20 Unknown Rx 200 UNITS/ML] Insulin NPH/Regular [NovoLIN 70/30] 20 unit SUB-Q BIDDIAB 30 Days 06/29/20 Unknown Rx units Lisinopril [Zestril] 10 mg PO DAILY #30 06/29/20 Unknown Rx Semaglutide [Ozempic] 0.25 mg SQ 1XW 30 Days 06/29/20 Unknown Rx Simvastatin 40 mg PO DAILY #30 06/29/20 Unknown Rx Sodium Bicarbonate 1,300 mg PO BID #60 tablet 06/29/20 Unknown Rx Active Medications: Generic Name Dose Route Start Last Admin Trade Name Freq PRN Reason Stop Dose Admin Acetaminophen 650 mg 06/17/20 13:40 06/25/20 15:09 Acetaminophen 325 Mg Tab PO 650 mg Q6H PRN Administration Pain, Mild (1-3) Albuterol 2.5 mg 06/17/20 13:40 Albuterol 2.5 Mg/3 Ml Nebu IH Q3HRT PRN Shortness Of Breath Dextrose 50 ml 06/19/20 15:28 Dextrose 50% In Water (25gm) 50 Ml Syringe IV Q30MIN PRN Hypoglycemia Protocol Epoetin Germán 20,000 unit 06/25/20 08:16 Epoetin Germán 20,000 Unit/1 Ml Inj IV MARIELLE PRN hemodialysis Famotidine 20 mg 06/19/20 10:00 07/03/20 10:23 Famotidine 20 Mg Tab PO 20 mg QDAY JERMAINE Administration Heparin Sodium (Porcine) 5,000 unit 06/17/20 22:00 07/03/20 10:22 Heparin 5,000 Unit/1 Ml Vial SUB-Q 5,000 unit Q12HR JERMAINE Administration Hydromorphone HCl 0.25 mg 06/17/20 13:40 06/22/20 23:58 Hydromorphone 1 Mg/1 Ml Inj IV 0.25 mg Q4H PRN Administration Pain, Moderate (4-6) Sodium Chloride 100 mls @ 999 mls/hr 06/24/20 12:00 Nacl 0.9% IV MARIELLE PRN Hypotension Insulin Human Isoph/Insulin Regular 20 unit 06/28/20 08:00 07/03/20 07:30 Insulin Nph/Regular 70/30 Inj SUB-Q 20 unit BIDDIAB JERMAINE Administration Insulin Human Lispro 0 unit 06/29/20 11:30 07/03/20 07:30 Insulin Lispro 100 Unit/Ml Vial 3 Ml SUB-Q Not Given ACHS [facility] Protocol Potassium Chloride 20 meq 07/03/20 10:00 07/03/20 10:22 Potassium Chloride Er 20 Meq Tab PO 20 meq QDAY JERMAINE Administration Sodium Bicarbonate 650 mg 06/29/20 22:00 07/03/20 10:23 Sodium Bicarbonate 650 Mg Tab PO 650 mg BID JERMAINE Administration Sodium Chloride 10 ml 06/17/20 22:00 07/03/20 10:31 Sodium Chloride 0.9% 10 Ml Flush Syringe IV 10 ml BID JERMAINE Administration Sodium Chloride 10 ml 06/17/20 13:40 Sodium Chloride 0.9% 10 Ml Flush Syringe IV PRN PRN LINE FLUSH
--- NOTE | 2020-07-03 13:19 | Progress Note ---
Assessment and Plan Diabetic ketoacidosis. Acute toxic metabolic encephalopathy. Severe sepsis at presentation. Leukocytosis, presumably stress leukocytosis. Hypernatremia. Rhabdomyolysis. Acute kidney injury - HD/UF for toxin and volume control per nephrology prescription (on hold now) - awaiting outpatient dialysis placement - no new issues otherwise, continue care as below; - supplemental oxygen to keep O2 sats > 90% - prn Bronchodilators (INÉS) with pulm hygiene per RT - continue to avoid nephrotoxins, renally dose all medications - mobility protocols to prevent pressure ulcers - PT/OT as tolerated - prn analgesia per pain score - continue accuchecks with glycemic control per SSI for target blood glucose < 180 mg/dL - GI & VTE prophylaxis - Flu & pneumovax per protocol - continue other care per attending / other consultants ... re-evaluate in am & prn Subjective Date of service: 07/03/20 Principal diagnosis: DKA; Ac encephalopathy; Severe sepsis; Rhabdomyolysis; YUNI. Interval history: Patient is seen today for: Diabetic ketoacidosis; Acute toxic metabolic encephalopathy; Severe sepsis; Rhabdomyolysis; Acute kidney injury Seen and examined at bedside; 24hour events reviewed; nursing and respiratory care staff consulted; no adverse overnight events reported to me; resting in bed; apparently last dialysis was 06/28/2020 and he is making urine; Objective Vital Signs - 12hr 07/03/20 04:42 Temperature 99.0 F Pulse Rate 95 H Respiratory 20 Rate Blood Pressure 105/65 O2 Sat by Pulse 95 Oximetry Constitutional: no acute distress, alert, other (middle aged male with normal respiratory effort at rest) Eyes: non-icteric ENT: oropharynx moist Neck: supple, no lymphadenopathy, no JVD Effort: normal Ascultation: Bilateral: clear Percussion: Bilateral: not dull Cardiovascular: regular rate and rhythm Gastrointestinal: normoactive bowel sounds, soft, non-tender, non-distended Integumentary: rash (xeroderma) Extremities: no cyanosis, no edema, pulses normal, no ischemia or petechiae Neurologic: non-focal exam, pupils equal and round, CN II-XII normal, motor strength normal and Psychiatric: mood appropriate, affect normal CBC and BMP: 07/03/20 05:29 07/03/20 05:29 ABG, PT/INR, D-dimer: ABG ABG pH 7.545 (7.320-7.450) H 06/24/20 16:17 POC ABG pCO2 34.2 mmHg (32.0-48.0) 06/24/20 16:17 POC ABG pO2 68.9 mmHg (83-108) L 06/24/20 16:17 POC ABG HCO3 28.9 06/24/20 16:17 PT/INR, D-dimer PT 22.1 Sec. (12.2-14.9) H 06/17/20 11:24 INR 1.92 (0.87-1.13) H 06/17/20 11:24 Abnormal lab findings: Abnormal Labs 06/17/20 06/17/20 06/17/20 11:24 11:24 11:24 WBC 14.7 H RBC 5.38 H Hgb Hct 49.1 H MCV MCH 27 L MCHC 29 L RDW Lymph % (Auto) 9.9 L [place] % (Auto) [place] # (Auto) Seg Neutrophils % 86.8 H Seg Neuts % (Manual) Lymphocytes % (Manual) Monocytes % (Manual) Nucleated RBC % Seg Neutrophils # 12.8 H Seg Neutrophils # Man Lymphocytes # (Manual) Monocytes # (Manual) Basophils # (Manual) PT 22.1 H INR 1.92 H APTT 38.9 H ABG pH POC ABG pO2 ABG Hemoglobin ABG Oxyhemoglobin ABG Sodium ABG Potassium ABG Glucose VBG pH Carboxyhemoglobin Sodium 149 H Potassium Chloride Carbon Dioxide BUN 84 H Creatinine 3.6 H Glucose 1394 H* POC Glucose Lactic Acid Calcium Phosphorus Magnesium AST 59 H ALT Total Creatine Kinase 5507 H CK-MB (CK-2) 7.9 H Total Protein 9.0 H Albumin 3.7 L Free T4 Arterial Blood Glucose Arterial Blood Ionized Calcium Urine WBC (Auto) Urine Creatinine Ur Total Protein 24 Hr Urine Total Protein Coronavirus (PCR) Crossmatch 06/17/20 06/17/20 06/17/20 11:24 11:24 11:24 WBC RBC Hgb Hct MCV MCH MCHC RDW Lymph % (Auto) [place] % (Auto) [place] # (Auto) Seg Neutrophils % Seg Neuts % (Manual) Lymphocytes % (Manual) Monocytes % (Manual) Nucleated RBC % Seg Neutrophils # Seg Neutrophils # Man Lymphocytes # (Manual) Monocytes # (Manual) Basophils # (Manual) PT INR APTT ABG pH POC ABG pO2 ABG Hemoglobin ABG Oxyhemoglobin ABG Sodium ABG Potassium ABG Glucose VBG pH 7.123 L* Carboxyhemoglobin Sodium Potassium Chloride Carbon Dioxide BUN Creatinine Glucose POC Glucose Lactic Acid Calcium Phosphorus Magnesium 6.20 H AST ALT Total Creatine Kinase CK-MB (CK-2) Total Protein Albumin Free T4 1.65 H Arterial Blood Glucose Arterial Blood Ionized Calcium Urine WBC (Auto) Urine Creatinine Ur Total Protein 24 Hr Urine Total Protein Coronavirus (PCR) Crossmatch 06/17/20 06/17/20 06/17/20 15:27 15:33 15:33 WBC RBC Hgb Hct MCV MCH MCHC RDW Lymph % (Auto) [place] % (Auto) [place] # (Auto) Seg Neutrophils % Seg Neuts % (Manual) Lymphocytes % (Manual) Monocytes % (Manual) Nucleated RBC % Seg Neutrophils # Seg Neutrophils # Man Lymphocytes # (Manual) Monocytes # (Manual) Basophils # (Manual) PT INR APTT ABG pH POC ABG pO2 ABG Hemoglobin ABG Oxyhemoglobin ABG Sodium ABG Potassium ABG Glucose VBG pH Carboxyhemoglobin Sodium Potassium Chloride Carbon Dioxide BUN Creatinine Glucose 1086 H* POC Glucose > 600 H Lactic Acid Calcium Phosphorus 9.40 H Magnesium 4.50 H AST ALT Total Creatine Kinase CK-MB (CK-2) Total Protein Albumin Free T4 Arterial Blood Glucose Arterial Blood Ionized Calcium Urine WBC (Auto) Urine Creatinine Ur Total Protein 24 Hr Urine Total Protein Coronavirus (PCR) Crossmatch 06/17/20 06/17/20 06/17/20 16:58 18:39 18:41 WBC RBC Hgb Hct MCV MCH MCHC RDW Lymph % (Auto) [place] % (Auto) [place] # (Auto) Seg Neutrophils % Seg Neuts % (Manual) Lymphocytes % (Manual) Monocytes % (Manual) Nucleated RBC % Seg Neutrophils # Seg Neutrophils # Man Lymphocytes # (Manual) Monocytes # (Manual) Basophils # (Manual) PT INR APTT ABG pH POC ABG pO2 ABG Hemoglobin ABG Oxyhemoglobin ABG Sodium ABG Potassium ABG Glucose VBG pH Carboxyhemoglobin Sodium 155 H 154 H Potassium 3.0 L D 2.8 L* Chloride 114.0 H 117.3 H Carbon Dioxide 20 L 19 L BUN 83 H 84 H Creatinine 3.2 H 3.3 H Glucose 1046 H* 830 H* POC Glucose > 600 H Lactic Acid Calcium 7.8 L D 7.9 L Phosphorus Magnesium AST ALT Total Creatine Kinase CK-MB (CK-2) Total Protein Albumin Free T4 Arterial Blood Glucose Arterial Blood Ionized Calcium Urine WBC (Auto) Urine Creatinine Ur Total Protein 24 Hr Urine Total Protein Coronavirus (PCR) Crossmatch 06/17/20 06/17/20 06/17/20 21:15 21:15 Unknown WBC RBC Hgb Hct MCV MCH MCHC RDW Lymph % (Auto) [place] % (Auto) [place] # (Auto) Seg Neutrophils % Seg Neuts % (Manual) Lymphocytes % (Manual) Monocytes % (Manual) Nucleated RBC % Seg Neutrophils # Seg Neutrophils # Man Lymphocytes # (Manual) Monocytes # (Manual) Basophils # (Manual) PT INR APTT ABG pH POC ABG pO2 ABG Hemoglobin ABG Oxyhemoglobin ABG Sodium ABG Potassium ABG Glucose VBG pH Carboxyhemoglobin Sodium 157 H Potassium 2.9 L* Chloride 118.8 H Carbon Dioxide 19 L BUN 84 H Creatinine 3.3 H Glucose 666 H* POC Glucose Lactic Acid 2.80 H* Calcium 7.8 L Phosphorus Magnesium AST ALT Total Creatine Kinase CK-MB (CK-2) Total Protein Albumin Free T4 Arterial Blood Glucose Arterial Blood Ionized Calcium Urine WBC (Auto) 7.0 H Urine Creatinine Ur Total Protein 24 Hr Urine Total Protein Coronavirus (PCR) Crossmatch 06/18/20 06/18/20 06/18/20 00:10 00:20 03:20 WBC RBC Hgb Hct MCV MCH MCHC RDW Lymph % (Auto) [place] % (Auto) [place] # (Auto) Seg Neutrophils % Seg Neuts % (Manual) Lymphocytes % (Manual) Monocytes % (Manual) Nucleated RBC % Seg Neutrophils # Seg Neutrophils # Man Lymphocytes # (Manual) Monocytes # (Manual) Basophils # (Manual) PT INR APTT ABG pH POC ABG pO2 ABG Hemoglobin ABG Oxyhemoglobin ABG Sodium ABG Potassium ABG Glucose VBG pH Carboxyhemoglobin Sodium 160 H Potassium 3.0 L Chloride 118.8 H Carbon Dioxide BUN 89 H Creatinine 3.8 H Glucose 650 H* POC Glucose 291 H Lactic Acid 2.40 H* Calcium 7.8 L Phosphorus Magnesium AST ALT Total Creatine Kinase CK-MB (CK-2) Total Protein Albumin Free T4 Arterial Blood Glucose Arterial Blood Ionized Calcium Urine WBC (Auto) Urine Creatinine Ur Total Protein 24 Hr Urine Total Protein Coronavirus (PCR) Crossmatch 06/18/20 06/18/20 06/18/20 05:19 06:27 06:27 WBC RBC Hgb Hct MCV MCH MCHC RDW Lymph % (Auto) [place] % (Auto) [place] # (Auto) Seg Neutrophils % Seg Neuts % (Manual) Lymphocytes % (Manual) Monocytes % (Manual) Nucleated RBC % Seg Neutrophils # Seg Neutrophils # Man Lymphocytes # (Manual) Monocytes # (Manual) Basophils # (Manual) PT INR APTT ABG pH POC ABG pO2 ABG Hemoglobin ABG Oxyhemoglobin ABG Sodium ABG Potassium ABG Glucose VBG pH Carboxyhemoglobin Sodium 167 H* Potassium 3.4 L Chloride 126.4 H Carbon Dioxide 21 L BUN 99 H Creatinine 4.5 H Glucose 291 H POC Glucose 276 H Lactic Acid 2.80 H* Calcium 8.1 L Phosphorus Magnesium AST ALT Total Creatine Kinase CK-MB (CK-2) Total Protein Albumin Free T4 Arterial Blood Glucose Arterial Blood Ionized Calcium Urine WBC (Auto) Urine Creatinine Ur Total Protein 24 Hr Urine Total Protein Coronavirus (PCR) Crossmatch 06/18/20 06/18/20 06/18/20 06:45 08:40 08:49 WBC RBC Hgb Hct MCV MCH MCHC RDW Lymph % (Auto) [place] % (Auto) [place] # (Auto) Seg Neutrophils % Seg Neuts % (Manual) Lymphocytes % (Manual) Monocytes % (Manual) Nucleated RBC % Seg Neutrophils # Seg Neutrophils # Man Lymphocytes # (Manual) Monocytes # (Manual) Basophils # (Manual) PT INR APTT ABG pH POC ABG pO2 ABG Hemoglobin ABG Oxyhemoglobin ABG Sodium ABG Potassium ABG Glucose VBG pH Carboxyhemoglobin Sodium Potassium Chloride Carbon Dioxide BUN Creatinine Glucose POC Glucose 215 H 182 H Lactic Acid 2.20 H* Calcium Phosphorus Magnesium AST ALT Total Creatine Kinase CK-MB (CK-2) Total Protein Albumin Free T4 Arterial Blood Glucose Arterial Blood Ionized Calcium Urine WBC (Auto) Urine Creatinine Ur Total Protein 24 Hr Urine Total Protein Coronavirus (PCR) Crossmatch 06/18/20 06/18/20 06/18/20 10:01 10:28 11:40 WBC RBC Hgb Hct MCV MCH MCHC RDW Lymph % (Auto) [place] % (Auto) [place] # (Auto) Seg Neutrophils % Seg Neuts % (Manual) Lymphocytes % (Manual) Monocytes % (Manual) Nucleated RBC % Seg Neutrophils # Seg Neutrophils # Man Lymphocytes # (Manual) Monocytes # (Manual) Basophils # (Manual) PT INR APTT ABG pH POC ABG pO2 ABG Hemoglobin ABG Oxyhemoglobin ABG Sodium ABG Potassium ABG Glucose VBG pH Carboxyhemoglobin Sodium 161 H* Potassium Chloride 125.4 H Carbon Dioxide 21 L BUN 98 H Creatinine 5.0 H Glucose 247 H POC Glucose 217 H Lactic Acid 3.20 H* Calcium 7.8 L Phosphorus Magnesium AST ALT Total Creatine Kinase CK-MB (CK-2) Total Protein Albumin Free T4 Arterial Blood Glucose Arterial Blood Ionized Calcium Urine WBC (Auto) Urine Creatinine Ur Total Protein 24 Hr Urine Total Protein Coronavirus (PCR) Crossmatch 06/18/20 06/18/20 06/18/20 11:40 11:40 12:33 WBC RBC Hgb Hct MCV MCH MCHC RDW Lymph % (Auto) [place] % (Auto) [place] # (Auto) Seg Neutrophils % Seg Neuts % (Manual) Lymphocytes % (Manual) Monocytes % (Manual) Nucleated RBC % Seg Neutrophils # Seg Neutrophils # Man Lymphocytes # (Manual) Monocytes # (Manual) Basophils # (Manual) PT INR APTT ABG pH POC ABG pO2 ABG Hemoglobin ABG Oxyhemoglobin ABG Sodium ABG Potassium ABG Glucose VBG pH Carboxyhemoglobin Sodium Potassium Chloride Carbon Dioxide BUN Creatinine Glucose POC Glucose 199 H Lactic Acid 2.40 H* Calcium Phosphorus Magnesium AST ALT Total Creatine Kinase 93720 H CK-MB (CK-2) Total Protein Albumin Free T4 Arterial Blood Glucose Arterial Blood Ionized Calcium Urine WBC (Auto) Urine Creatinine Ur Total Protein 24 Hr Urine Total Protein Coronavirus (PCR) Crossmatch 06/18/20 06/18/20 06/18/20 13:57 16:27 21:58 WBC RBC Hgb Hct MCV MCH MCHC RDW Lymph % (Auto) [place] % (Auto) [place] # (Auto) Seg Neutrophils % Seg Neuts % (Manual) Lymphocytes % (Manual) Monocytes % (Manual) Nucleated RBC % Seg Neutrophils # Seg Neutrophils # Man Lymphocytes # (Manual) Monocytes # (Manual) Basophils # (Manual) PT INR APTT ABG pH POC ABG pO2 ABG Hemoglobin ABG Oxyhemoglobin ABG Sodium ABG Potassium ABG Glucose VBG pH Carboxyhemoglobin Sodium Potassium Chloride Carbon Dioxide BUN Creatinine Glucose POC Glucose 198 H 185 H 281 H Lactic Acid Calcium Phosphorus Magnesium AST ALT Total Creatine Kinase CK-MB (CK-2) Total Protein Albumin Free T4 Arterial Blood Glucose Arterial Blood Ionized Calcium Urine WBC (Auto) Urine Creatinine Ur Total Protein 24 Hr Urine Total Protein Coronavirus (PCR) Crossmatch 06/19/20 06/19/20 06/19/20 00:55 00:55 04:25 WBC RBC Hgb Hct MCV MCH MCHC RDW Lymph % (Auto) [place] % (Auto) [place] # (Auto) Seg Neutrophils % Seg Neuts % (Manual) Lymphocytes % (Manual) Monocytes % (Manual) Nucleated RBC % Seg Neutrophils # Seg Neutrophils # Man Lymphocytes # (Manual) Monocytes # (Manual) Basophils # (Manual) PT INR APTT ABG pH POC ABG pO2 ABG Hemoglobin ABG Oxyhemoglobin ABG Sodium ABG Potassium ABG Glucose VBG pH Carboxyhemoglobin Sodium 164 H* Potassium Chloride 125.8 H Carbon Dioxide 21 L BUN 100 H Creatinine 6.4 H Glucose 370 H POC Glucose 366 H Lactic Acid 2.30 H* Calcium 7.4 L Phosphorus Magnesium AST ALT Total Creatine Kinase CK-MB (CK-2) Total Protein Albumin Free T4 Arterial Blood Glucose Arterial Blood Ionized Calcium Urine WBC (Auto) Urine Creatinine Ur Total Protein 24 Hr Urine Total Protein Coronavirus (PCR) Crossmatch 06/19/20 06/19/20 06/19/20 11:49 14:24 15:44 WBC RBC Hgb Hct MCV MCH MCHC RDW Lymph % (Auto) [place] % (Auto) [place] # (Auto) Seg Neutrophils % Seg Neuts % (Manual) Lymphocytes % (Manual) Monocytes % (Manual) Nucleated RBC % Seg Neutrophils # Seg Neutrophils # Man Lymphocytes # (Manual) Monocytes # (Manual) Basophils # (Manual) PT INR APTT ABG pH POC ABG pO2 ABG Hemoglobin ABG Oxyhemoglobin ABG Sodium ABG Potassium ABG Glucose VBG pH Carboxyhemoglobin Sodium Potassium Chloride Carbon Dioxide BUN Creatinine Glucose POC Glucose 411 H Lactic Acid 2.90 H* Calcium Phosphorus Magnesium AST ALT Total Creatine Kinase 68183 H CK-MB (CK-2) Total Protein Albumin Free T4 Arterial Blood Glucose Arterial Blood Ionized Calcium Urine WBC (Auto) Urine Creatinine Ur Total Protein 24 Hr Urine Total Protein Coronavirus (PCR) Crossmatch 06/19/20 06/19/20 06/19/20 18:41 21:44 22:16 WBC RBC Hgb Hct MCV MCH MCHC RDW Lymph % (Auto) [place] % (Auto) [place] # (Auto) Seg Neutrophils % Seg Neuts % (Manual) Lymphocytes % (Manual) Monocytes % (Manual) Nucleated RBC % Seg Neutrophils # Seg Neutrophils # Man Lymphocytes # (Manual) Monocytes # (Manual) Basophils # (Manual) PT INR APTT ABG pH POC ABG pO2 ABG Hemoglobin ABG Oxyhemoglobin ABG Sodium ABG Potassium ABG Glucose VBG pH Carboxyhemoglobin Sodium Potassium Chloride Carbon Dioxide BUN Creatinine Glucose POC Glucose 404 H 333 H Lactic Acid 2.50 H* Calcium Phosphorus Magnesium AST ALT Total Creatine Kinase CK-MB (CK-2) Total Protein Albumin Free T4 Arterial Blood Glucose Arterial Blood Ionized Calcium Urine WBC (Auto) Urine Creatinine Ur Total Protein 24 Hr Urine Total Protein Coronavirus (PCR) Crossmatch 06/20/20 06/20/20 06/20/20 00:12 04:37 05:08 WBC RBC Hgb Hct MCV MCH MCHC RDW Lymph % (Auto) [place] % (Auto) [place] # (Auto) Seg Neutrophils % Seg Neuts % (Manual) Lymphocytes % (Manual) Monocytes % (Manual) Nucleated RBC % Seg Neutrophils # Seg Neutrophils # Man Lymphocytes # (Manual) Monocytes # (Manual) Basophils # (Manual) PT INR APTT ABG pH POC ABG pO2 ABG Hemoglobin ABG Oxyhemoglobin ABG Sodium ABG Potassium ABG Glucose VBG pH Carboxyhemoglobin Sodium Potassium Chloride Carbon Dioxide BUN Creatinine Glucose POC Glucose 318 H Lactic Acid 2.10 H* Calcium Phosphorus Magnesium AST ALT Total Creatine Kinase 62341 H CK-MB (CK-2) Total Protein Albumin Free T4 Arterial Blood Glucose Arterial Blood Ionized Calcium Urine WBC (Auto) Urine Creatinine Ur Total Protein 24 Hr Urine Total Protein Coronavirus (PCR) Crossmatch 06/20/20 06/20/20 06/20/20 10:19 14:47 14:47 WBC 15.1 H RBC Hgb 10.2 L Hct 32.0 L MCV MCH 27 L MCHC RDW Lymph % (Auto) [place] % (Auto) [place] # (Auto) Seg Neutrophils % Seg Neuts % (Manual) 79.0 H Lymphocytes % (Manual) 12.0 L Monocytes % (Manual) Nucleated RBC % Seg Neutrophils # Seg Neutrophils # Man 11.9 H Lymphocytes # (Manual) Monocytes # (Manual) 1.1 H Basophils # (Manual) 0.2 H PT INR APTT ABG pH POC ABG pO2 ABG Hemoglobin ABG Oxyhemoglobin ABG Sodium ABG Potassium ABG Glucose VBG pH Carboxyhemoglobin Sodium 156 H Potassium 5.9 H D Chloride 118.3 H Carbon Dioxide 20 L BUN 159 H Creatinine 9.4 H Glucose 283 H POC Glucose 220 H Lactic Acid Calcium 7.7 L Phosphorus Magnesium AST 149 H ALT 89 H Total Creatine Kinase CK-MB (CK-2) Total Protein 5.9 L D Albumin 2.3 L Free T4 Arterial Blood Glucose Arterial Blood Ionized Calcium Urine WBC (Auto) Urine Creatinine Ur Total Protein 24 Hr Urine Total Protein Coronavirus (PCR) Crossmatch 06/20/20 06/20/20 06/20/20 17:02 19:43 22:01 WBC RBC Hgb Hct MCV MCH MCHC RDW Lymph % (Auto) [place] % (Auto) [place] # (Auto) Seg Neutrophils % Seg Neuts % (Manual) Lymphocytes % (Manual) Monocytes % (Manual) Nucleated RBC % Seg Neutrophils # Seg Neutrophils # Man Lymphocytes # (Manual) Monocytes # (Manual) Basophils # (Manual) PT INR APTT ABG pH POC ABG pO2 ABG Hemoglobin ABG Oxyhemoglobin ABG Sodium ABG Potassium ABG Glucose VBG pH Carboxyhemoglobin Sodium Potassium Chloride Carbon Dioxide BUN Creatinine Glucose POC Glucose 248 H 268 H Lactic Acid Calcium Phosphorus 6.70 H Magnesium AST ALT Total Creatine Kinase CK-MB (CK-2) Total Protein Albumin Free T4 Arterial Blood Glucose Arterial Blood Ionized Calcium Urine WBC (Auto) Urine Creatinine Ur Total Protein 24 Hr Urine Total Protein Coronavirus (PCR) Crossmatch 06/21/20 06/21/20 06/21/20 02:22 04:28 09:45 WBC RBC Hgb Hct MCV MCH MCHC RDW Lymph % (Auto) [place] % (Auto) [place] # (Auto) Seg Neutrophils % Seg Neuts % (Manual) Lymphocytes % (Manual) Monocytes % (Manual) Nucleated RBC % Seg Neutrophils # Seg Neutrophils # Man Lymphocytes # (Manual) Monocytes # (Manual) Basophils # (Manual) PT INR APTT ABG pH POC ABG pO2 ABG Hemoglobin ABG Oxyhemoglobin ABG Sodium ABG Potassium ABG Glucose VBG pH Carboxyhemoglobin Sodium Potassium Chloride Carbon Dioxide BUN Creatinine Glucose POC Glucose 248 H 237 H 234 H Lactic Acid Calcium Phosphorus Magnesium AST ALT Total Creatine Kinase CK-MB (CK-2) Total Protein Albumin Free T4 Arterial Blood Glucose Arterial Blood Ionized Calcium Urine WBC (Auto) Urine Creatinine Ur Total Protein 24 Hr Urine Total Protein Coronavirus (PCR) Crossmatch 06/21/20 06/21/20 06/21/20 15:29 15:29 15:29 WBC 11.8 H RBC 3.51 L Hgb 9.3 L Hct 29.8 L MCV MCH 27 L MCHC 31 L RDW Lymph % (Auto) [place] % (Auto) [place] # (Auto) Seg Neutrophils % Seg Neuts % (Manual) 81.0 H Lymphocytes % (Manual) 6.0 L Monocytes % (Manual) 10.0 H Nucleated RBC % Seg Neutrophils # Seg Neutrophils # Man 9.6 H Lymphocytes # (Manual) 0.7 L Monocytes # (Manual) 1.2 H Basophils # (Manual) PT INR APTT ABG pH POC ABG pO2 ABG Hemoglobin ABG Oxyhemoglobin ABG Sodium ABG Potassium ABG Glucose VBG pH Carboxyhemoglobin Sodium 152 H Potassium 6.0 H Chloride 115.0 H Carbon Dioxide 18 L BUN 161 H Creatinine 9.7 H Glucose 310 H POC Glucose Lactic Acid Calcium 7.9 L Phosphorus Magnesium AST ALT Total Creatine Kinase 58458 H CK-MB (CK-2) Total Protein Albumin Free T4 Arterial Blood Glucose Arterial Blood Ionized Calcium Urine WBC (Auto) Urine Creatinine Ur Total Protein 24 Hr Urine Total Protein Coronavirus (PCR) Crossmatch 06/21/20 06/22/20 06/22/20 18:07 02:33 05:51 WBC 11.3 H RBC 3.18 L Hgb 8.6 L Hct 26.7 L MCV MCH 27 L MCHC RDW Lymph % (Auto) 13.2 L [place] % (Auto) 10.8 H [place] # (Auto) 1.2 H Seg Neutrophils % 75.6 H Seg Neuts % (Manual) Lymphocytes % (Manual) Monocytes % (Manual) Nucleated RBC % Seg Neutrophils # 8.5 H Seg Neutrophils # Man Lymphocytes # (Manual) Monocytes # (Manual) Basophils # (Manual) PT INR APTT ABG pH POC ABG pO2 ABG Hemoglobin ABG Oxyhemoglobin ABG Sodium ABG Potassium ABG Glucose VBG pH Carboxyhemoglobin Sodium Potassium Chloride Carbon Dioxide BUN Creatinine Glucose POC Glucose 320 H 302 H Lactic Acid Calcium Phosphorus Magnesium AST ALT Total Creatine Kinase CK-MB (CK-2) Total Protein Albumin Free T4 Arterial Blood Glucose Arterial Blood Ionized Calcium Urine WBC (Auto) Urine Creatinine Ur Total Protein 24 Hr Urine Total Protein Coronavirus (PCR) Crossmatch 06/22/20 06/22/20 06/22/20 05:51 10:57 11:47 WBC RBC Hgb Hct MCV MCH MCHC RDW Lymph % (Auto) [place] % (Auto) [place] # (Auto) Seg Neutrophils % Seg Neuts % (Manual) Lymphocytes % (Manual) Monocytes % (Manual) Nucleated RBC % Seg Neutrophils # Seg Neutrophils # Man Lymphocytes # (Manual) Monocytes # (Manual) Basophils # (Manual) PT INR APTT ABG pH POC ABG pO2 ABG Hemoglobin ABG Oxyhemoglobin ABG Sodium ABG Potassium ABG Glucose VBG pH Carboxyhemoglobin Sodium Potassium Chloride Carbon Dioxide BUN 102 H Creatinine 7.1 H Glucose 357 H POC Glucose 438 H Lactic Acid Calcium 8.0 L Phosphorus Magnesium AST ALT Total Creatine Kinase 8530 H CK-MB (CK-2) Total Protein Albumin Free T4 Arterial Blood Glucose Arterial Blood Ionized Calcium Urine WBC (Auto) Urine Creatinine Ur Total Protein 24 Hr Urine Total Protein Coronavirus (PCR) Crossmatch 06/23/20 06/23/20 06/23/20 02:12 04:38 05:13 WBC RBC 2.93 L Hgb 8.0 L Hct 24.8 L MCV MCH 27 L MCHC RDW Lymph % (Auto) 13.0 L [place] % (Auto) 14.1 H [place] # (Auto) 1.5 H Seg Neutrophils % 72.4 H Seg Neuts % (Manual) Lymphocytes % (Manual) Monocytes % (Manual) Nucleated RBC % Seg Neutrophils # Seg Neutrophils # Man Lymphocytes # (Manual) Monocytes # (Manual) Basophils # (Manual) PT INR APTT ABG pH POC ABG pO2 ABG Hemoglobin ABG Oxyhemoglobin ABG Sodium ABG Potassium ABG Glucose VBG pH Carboxyhemoglobin Sodium Potassium Chloride Carbon Dioxide BUN Creatinine Glucose POC Glucose 417 H 390 H Lactic Acid Calcium Phosphorus Magnesium AST ALT Total Creatine Kinase CK-MB (CK-2) Total Protein Albumin Free T4 Arterial Blood Glucose Arterial Blood Ionized Calcium Urine WBC (Auto) Urine Creatinine Ur Total Protein 24 Hr Urine Total Protein Coronavirus (PCR) Crossmatch 06/23/20 06/23/20 06/23/20 05:13 05:13 10:06 WBC RBC Hgb Hct MCV MCH MCHC RDW Lymph % (Auto) [place] % (Auto) [place] # (Auto) Seg Neutrophils % Seg Neuts % (Manual) Lymphocytes % (Manual) Monocytes % (Manual) Nucleated RBC % Seg Neutrophils # Seg Neutrophils # Man Lymphocytes # (Manual) Monocytes # (Manual) Basophils # (Manual) PT INR APTT ABG pH POC ABG pO2 ABG Hemoglobin ABG Oxyhemoglobin ABG Sodium ABG Potassium ABG Glucose VBG pH Carboxyhemoglobin Sodium Potassium Chloride Carbon Dioxide BUN 90 H Creatinine 6.2 H Glucose 424 H POC Glucose 248 H Lactic Acid Calcium 7.8 L Phosphorus Magnesium AST ALT Total Creatine Kinase 8540 H CK-MB (CK-2) Total Protein Albumin Free T4 Arterial Blood Glucose Arterial Blood Ionized Calcium Urine WBC (Auto) Urine Creatinine Ur Total Protein 24 Hr Urine Total Protein Coronavirus (PCR) Crossmatch 06/23/20 06/23/20 06/23/20 11:44 15:51 20:30 WBC RBC Hgb Hct MCV MCH MCHC RDW Lymph % (Auto) [place] % (Auto) [place] # (Auto) Seg Neutrophils % Seg Neuts % (Manual) Lymphocytes % (Manual) Monocytes % (Manual) Nucleated RBC % Seg Neutrophils # Seg Neutrophils # Man Lymphocytes # (Manual) Monocytes # (Manual) Basophils # (Manual) PT INR APTT ABG pH POC ABG pO2 ABG Hemoglobin ABG Oxyhemoglobin ABG Sodium ABG Potassium ABG Glucose VBG pH Carboxyhemoglobin Sodium Potassium Chloride Carbon Dioxide BUN Creatinine Glucose POC Glucose 243 H 283 H 275 H Lactic Acid Calcium Phosphorus Magnesium AST ALT Total Creatine Kinase CK-MB (CK-2) Total Protein Albumin Free T4 Arterial Blood Glucose Arterial Blood Ionized Calcium Urine WBC (Auto) Urine Creatinine Ur Total Protein 24 Hr Urine Total Protein Coronavirus (PCR) Crossmatch 06/24/20 06/24/20 06/24/20 04:56 06:35 06:35 WBC 12.1 H RBC 2.78 L Hgb 7.5 L Hct 23.2 L MCV MCH 27 L MCHC RDW Lymph % (Auto) [place] % (Auto) [place] # (Auto) Seg Neutrophils % Seg Neuts % (Manual) 81.0 H Lymphocytes % (Manual) Monocytes % (Manual) Nucleated RBC % Seg Neutrophils # Seg Neutrophils # Man 9.8 H Lymphocytes # (Manual) Monocytes # (Manual) Basophils # (Manual) PT INR APTT ABG pH POC ABG pO2 ABG Hemoglobin ABG Oxyhemoglobin ABG Sodium ABG Potassium ABG Glucose VBG pH Carboxyhemoglobin Sodium Potassium Chloride Carbon Dioxide BUN 102 H Creatinine 7.1 H Glucose 324 H POC Glucose 269 H Lactic Acid Calcium Phosphorus Magnesium AST ALT Total Creatine Kinase 6347 H CK-MB (CK-2) Total Protein Albumin Free T4 Arterial Blood Glucose Arterial Blood Ionized Calcium Urine WBC (Auto) Urine Creatinine Ur Total Protein 24 Hr Urine Total Protein Coronavirus (PCR) Crossmatch 06/24/20 06/24/20 06/24/20 10:22 12:11 16:17 WBC RBC Hgb Hct MCV MCH MCHC RDW Lymph % (Auto) [place] % (Auto) [place] # (Auto) Seg Neutrophils % Seg Neuts % (Manual) Lymphocytes % (Manual) Monocytes % (Manual) Nucleated RBC % Seg Neutrophils # Seg Neutrophils # Man Lymphocytes # (Manual) Monocytes # (Manual) Basophils # (Manual) PT INR APTT ABG pH 7.545 H POC ABG pO2 68.9 L ABG Hemoglobin 6.8 L ABG Oxyhemoglobin 92.4 L ABG Sodium 135.1 L ABG Potassium 3.0 L ABG Glucose 199 H VBG pH Carboxyhemoglobin 1.7 H Sodium Potassium Chloride Carbon Dioxide BUN Creatinine Glucose POC Glucose 331 H 303 H Lactic Acid Calcium Phosphorus Magnesium AST ALT Total Creatine Kinase CK-MB (CK-2) Total Protein Albumin Free T4 Arterial Blood Glucose 199 H Arterial Blood Ionized Calcium 4.3 L Urine WBC (Auto) Urine Creatinine Ur Total Protein 24 Hr Urine Total Protein Coronavirus (PCR) Crossmatch 06/24/20 06/25/20 06/25/20 16:22 00:46 04:44 WBC 12.0 H RBC 2.56 L Hgb 6.9 L Hct 21.2 L MCV 83 L MCH 27 L MCHC RDW Lymph % (Auto) [place] % (Auto) 16.3 H [place] # (Auto) 2.0 H Seg Neutrophils % Seg Neuts % (Manual) Lymphocytes % (Manual) Monocytes % (Manual) Nucleated RBC % Seg Neutrophils # 8.1 H Seg Neutrophils # Man Lymphocytes # (Manual) Monocytes # (Manual) Basophils # (Manual) PT INR APTT ABG pH POC ABG pO2 ABG Hemoglobin ABG Oxyhemoglobin ABG Sodium ABG Potassium ABG Glucose VBG pH Carboxyhemoglobin Sodium Potassium Chloride Carbon Dioxide BUN Creatinine Glucose POC Glucose 173 H 391 H Lactic Acid Calcium Phosphorus Magnesium AST ALT Total Creatine Kinase CK-MB (CK-2) Total Protein Albumin Free T4 Arterial Blood Glucose Arterial Blood Ionized Calcium Urine WBC (Auto) Urine Creatinine Ur Total Protein 24 Hr Urine Total Protein Coronavirus (PCR) Crossmatch 06/25/20 06/25/20 06/25/20 04:44 04:44 06:20 WBC RBC Hgb Hct MCV MCH MCHC RDW Lymph % (Auto) [place] % (Auto) [place] # (Auto) Seg Neutrophils % Seg Neuts % (Manual) Lymphocytes % (Manual) Monocytes % (Manual) Nucleated RBC % Seg Neutrophils # Seg Neutrophils # Man Lymphocytes # (Manual) Monocytes # (Manual) Basophils # (Manual) PT INR APTT ABG pH POC ABG pO2 ABG Hemoglobin ABG Oxyhemoglobin ABG Sodium ABG Potassium ABG Glucose VBG pH Carboxyhemoglobin Sodium Potassium 3.4 L Chloride Carbon Dioxide BUN 63 H Creatinine 4.7 H Glucose 300 H POC Glucose 240 H Lactic Acid Calcium 8.2 L Phosphorus Magnesium AST ALT Total Creatine Kinase 3017 H CK-MB (CK-2) Total Protein Albumin Free T4 Arterial Blood Glucose Arterial Blood Ionized Calcium Urine WBC (Auto) Urine Creatinine Ur Total Protein 24 Hr Urine Total Protein Coronavirus (PCR) Crossmatch 06/25/20 06/25/20 06/25/20 08:20 16:57 16:58 WBC RBC Hgb Hct MCV MCH MCHC RDW Lymph % (Auto) [place] % (Auto) [place] # (Auto) Seg Neutrophils % Seg Neuts % (Manual) Lymphocytes % (Manual) Monocytes % (Manual) Nucleated RBC % Seg Neutrophils # Seg Neutrophils # Man Lymphocytes # (Manual) Monocytes # (Manual) Basophils # (Manual) PT INR APTT ABG pH POC ABG pO2 ABG Hemoglobin ABG Oxyhemoglobin ABG Sodium ABG Potassium ABG Glucose VBG pH Carboxyhemoglobin Sodium Potassium Chloride Carbon Dioxide BUN Creatinine Glucose POC Glucose 207 H 284 H Lactic Acid Calcium Phosphorus Magnesium AST ALT Total Creatine Kinase CK-MB (CK-2) Total Protein Albumin Free T4 Arterial Blood Glucose Arterial Blood Ionized Calcium Urine WBC (Auto) Urine Creatinine 73.8 H Ur Total Protein 24 Hr 644.00 H Urine Total Protein 46 H Coronavirus (PCR) Crossmatch 06/25/20 06/26/20 06/26/20 21:20 04:06 07:18 WBC 14.0 H RBC 2.52 L Hgb 6.8 L Hct 21.0 L MCV 83 L MCH 27 L MCHC RDW Lymph % (Auto) [place] % (Auto) [place] # (Auto) Seg Neutrophils % Seg Neuts % (Manual) 77.0 H Lymphocytes % (Manual) 12.0 L Monocytes % (Manual) Nucleated RBC % Seg Neutrophils # Seg Neutrophils # Man 10.8 H Lymphocytes # (Manual) Monocytes # (Manual) 1.0 H Basophils # (Manual) PT INR APTT ABG pH POC ABG pO2 ABG Hemoglobin ABG Oxyhemoglobin ABG Sodium ABG Potassium ABG Glucose VBG pH Carboxyhemoglobin Sodium Potassium Chloride Carbon Dioxide BUN Creatinine Glucose POC Glucose 259 H 204 H Lactic Acid Calcium Phosphorus Magnesium AST ALT Total Creatine Kinase CK-MB (CK-2) Total Protein Albumin Free T4 Arterial Blood Glucose Arterial Blood Ionized Calcium Urine WBC (Auto) Urine Creatinine Ur Total Protein 24 Hr Urine Total Protein Coronavirus (PCR) Crossmatch 06/26/20 06/26/20 06/26/20 07:18 07:18 09:18 WBC RBC Hgb Hct MCV MCH MCHC RDW Lymph % (Auto) [place] % (Auto) [place] # (Auto) Seg Neutrophils % Seg Neuts % (Manual) Lymphocytes % (Manual) Monocytes % (Manual) Nucleated RBC % Seg Neutrophils # Seg Neutrophils # Man Lymphocytes # (Manual) Monocytes # (Manual) Basophils # (Manual) PT INR APTT ABG pH POC ABG pO2 ABG Hemoglobin ABG Oxyhemoglobin ABG Sodium ABG Potassium ABG Glucose VBG pH Carboxyhemoglobin Sodium Potassium 3.0 L Chloride Carbon Dioxide BUN 46 H Creatinine 3.7 H Glucose 234 H POC Glucose 235 H Lactic Acid Calcium 8.2 L Phosphorus Magnesium AST ALT Total Creatine Kinase 1353 H CK-MB (CK-2) Total Protein Albumin Free T4 Arterial Blood Glucose Arterial Blood Ionized Calcium Urine WBC (Auto) Urine Creatinine Ur Total Protein 24 Hr Urine Total Protein Coronavirus (PCR) Crossmatch 06/26/20 06/26/20 06/26/20 13:18 16:48 21:57 WBC RBC Hgb Hct MCV MCH MCHC RDW Lymph % (Auto) [place] % (Auto) [place] # (Auto) Seg Neutrophils % Seg Neuts % (Manual) Lymphocytes % (Manual) Monocytes % (Manual) Nucleated RBC % Seg Neutrophils # Seg Neutrophils # Man Lymphocytes # (Manual) Monocytes # (Manual) Basophils # (Manual) PT INR APTT ABG pH POC ABG pO2 ABG Hemoglobin ABG Oxyhemoglobin ABG Sodium ABG Potassium ABG Glucose VBG pH Carboxyhemoglobin Sodium Potassium Chloride Carbon Dioxide BUN Creatinine Glucose POC Glucose 175 H 205 H 201 H Lactic Acid Calcium Phosphorus Magnesium AST ALT Total Creatine Kinase CK-MB (CK-2) Total Protein Albumin Free T4 Arterial Blood Glucose Arterial Blood Ionized Calcium Urine WBC (Auto) Urine Creatinine Ur Total Protein 24 Hr Urine Total Protein Coronavirus (PCR) Crossmatch 06/27/20 06/27/20 06/27/20 03:51 07:10 07:10 WBC 13.3 H RBC 2.30 L Hgb 6.3 L Hct 19.4 L* MCV MCH 27 L MCHC RDW Lymph % (Auto) [place] % (Auto) [place] # (Auto) Seg Neutrophils % Seg Neuts % (Manual) 77.0 H Lymphocytes % (Manual) 13.0 L Monocytes % (Manual) Nucleated RBC % 1.0 H Seg Neutrophils # Seg Neutrophils # Man 10.2 H Lymphocytes # (Manual) Monocytes # (Manual) 0.9 H Basophils # (Manual) PT INR APTT ABG pH POC ABG pO2 ABG Hemoglobin ABG Oxyhemoglobin ABG Sodium ABG Potassium ABG Glucose VBG pH Carboxyhemoglobin Sodium Potassium 3.1 L Chloride Carbon Dioxide 31 H BUN 36 H Creatinine 3.2 H Glucose 176 H POC Glucose 208 H Lactic Acid Calcium Phosphorus Magnesium AST ALT Total Creatine Kinase CK-MB (CK-2) Total Protein Albumin Free T4 Arterial Blood Glucose Arterial Blood Ionized Calcium Urine WBC (Auto) Urine Creatinine Ur Total Protein 24 Hr Urine Total Protein Coronavirus (PCR) Crossmatch 06/27/20 06/27/20 06/27/20 07:10 07:43 09:41 WBC RBC Hgb Hct MCV MCH MCHC RDW Lymph % (Auto) [place] % (Auto) [place] # (Auto) Seg Neutrophils % Seg Neuts % (Manual) Lymphocytes % (Manual) Monocytes % (Manual) Nucleated RBC % Seg Neutrophils # Seg Neutrophils # Man Lymphocytes # (Manual) Monocytes # (Manual) Basophils # (Manual) PT INR APTT ABG pH POC ABG pO2 ABG Hemoglobin ABG Oxyhemoglobin ABG Sodium ABG Potassium ABG Glucose VBG pH Carboxyhemoglobin Sodium Potassium Chloride Carbon Dioxide BUN Creatinine Glucose POC Glucose 155 H 328 H Lactic Acid Calcium Phosphorus Magnesium AST ALT Total Creatine Kinase 801 H CK-MB (CK-2) Total Protein Albumin Free T4 Arterial Blood Glucose Arterial Blood Ionized Calcium Urine WBC (Auto) Urine Creatinine Ur Total Protein 24 Hr Urine Total Protein Coronavirus (PCR) Crossmatch 06/27/20 06/27/20 06/27/20 10:54 16:01 20:13 WBC RBC Hgb Hct MCV MCH MCHC RDW Lymph % (Auto) [place] % (Auto) [place] # (Auto) Seg Neutrophils % Seg Neuts % (Manual) Lymphocytes % (Manual) Monocytes % (Manual) Nucleated RBC % Seg Neutrophils # Seg Neutrophils # Man Lymphocytes # (Manual) Monocytes # (Manual) Basophils # (Manual) PT INR APTT ABG pH POC ABG pO2 ABG Hemoglobin ABG Oxyhemoglobin ABG Sodium ABG Potassium ABG Glucose VBG pH Carboxyhemoglobin Sodium Potassium Chloride Carbon Dioxide BUN Creatinine Glucose POC Glucose 394 H Lactic Acid Calcium Phosphorus Magnesium AST ALT Total Creatine Kinase 580 H CK-MB (CK-2) Total Protein Albumin Free T4 Arterial Blood Glucose Arterial Blood Ionized Calcium Urine WBC (Auto) Urine Creatinine Ur Total Protein 24 Hr Urine Total Protein Coronavirus (PCR) Crossmatch See Detail 06/27/20 06/28/20 06/28/20 21:49 04:17 07:12 WBC 13.4 H RBC 2.49 L Hgb 6.6 L Hct 20.5 L MCV 83 L MCH 27 L MCHC RDW 15.7 H Lymph % (Auto) [place] % (Auto) [place] # (Auto) Seg Neutrophils % Seg Neuts % (Manual) 71.0 H Lymphocytes % (Manual) Monocytes % (Manual) Nucleated RBC % Seg Neutrophils # Seg Neutrophils # Man 9.5 H Lymphocytes # (Manual) Monocytes # (Manual) Basophils # (Manual) PT INR APTT ABG pH POC ABG pO2 ABG Hemoglobin ABG Oxyhemoglobin ABG Sodium ABG Potassium ABG Glucose VBG pH Carboxyhemoglobin Sodium Potassium Chloride Carbon Dioxide BUN Creatinine Glucose POC Glucose 227 H 201 H Lactic Acid Calcium Phosphorus Magnesium AST ALT Total Creatine Kinase CK-MB (CK-2) Total Protein Albumin Free T4 Arterial Blood Glucose Arterial Blood Ionized Calcium Urine WBC (Auto) Urine Creatinine Ur Total Protein 24 Hr Urine Total Protein Coronavirus (PCR) Crossmatch 06/28/20 06/28/20 06/28/20 07:12 07:12 16:12 WBC RBC Hgb Hct MCV MCH MCHC RDW Lymph % (Auto) [place] % (Auto) [place] # (Auto) Seg Neutrophils % Seg Neuts % (Manual) Lymphocytes % (Manual) Monocytes % (Manual) Nucleated RBC % Seg Neutrophils # Seg Neutrophils # Man Lymphocytes # (Manual) Monocytes # (Manual) Basophils # (Manual) PT INR APTT ABG pH POC ABG pO2 ABG Hemoglobin ABG Oxyhemoglobin ABG Sodium ABG Potassium ABG Glucose VBG pH Carboxyhemoglobin Sodium Potassium 3.1 L Chloride Carbon Dioxide 33 H BUN 43 H Creatinine 3.4 H Glucose 261 H POC Glucose 143 H Lactic Acid Calcium Phosphorus Magnesium AST ALT Total Creatine Kinase 418 H CK-MB (CK-2) Total Protein Albumin Free T4 Arterial Blood Glucose Arterial Blood Ionized Calcium Urine WBC (Auto) Urine Creatinine Ur Total Protein 24 Hr Urine Total Protein Coronavirus (PCR) Crossmatch 06/28/20 06/28/20 06/28/20 20:48 23:22 23:22 WBC 12.7 H RBC 2.41 L Hgb 6.6 L Hct 20.0 L MCV 83 L MCH 27 L MCHC RDW 16.0 H Lymph % (Auto) [place] % (Auto) 9.7 H [place] # (Auto) 1.2 H Seg Neutrophils % Seg Neuts % (Manual) Lymphocytes % (Manual) Monocytes % (Manual) Nucleated RBC % Seg Neutrophils # 8.8 H Seg Neutrophils # Man Lymphocytes # (Manual) Monocytes # (Manual) Basophils # (Manual) PT INR APTT ABG pH POC ABG pO2 ABG Hemoglobin ABG Oxyhemoglobin ABG Sodium ABG Potassium ABG Glucose VBG pH Carboxyhemoglobin Sodium Potassium Chloride Carbon Dioxide BUN Creatinine Glucose POC Glucose 300 H Lactic Acid Calcium Phosphorus Magnesium AST ALT Total Creatine Kinase 341 H CK-MB (CK-2) Total Protein Albumin Free T4 Arterial Blood Glucose Arterial Blood Ionized Calcium Urine WBC (Auto) Urine Creatinine Ur Total Protein 24 Hr Urine Total Protein Coronavirus (PCR) Crossmatch 06/29/20 06/29/20 06/29/20 05:09 07:33 07:33 WBC 11.8 H RBC 2.39 L Hgb 6.4 L Hct 19.7 L* MCV 82 L MCH 27 L MCHC RDW 15.9 H Lymph % (Auto) [place] % (Auto) 11.4 H [place] # (Auto) 1.4 H Seg Neutrophils % Seg Neuts % (Manual) Lymphocytes % (Manual) Monocytes % (Manual) Nucleated RBC % Seg Neutrophils # 8.2 H Seg Neutrophils # Man Lymphocytes # (Manual) Monocytes # (Manual) Basophils # (Manual) PT INR APTT ABG pH POC ABG pO2 ABG Hemoglobin ABG Oxyhemoglobin ABG Sodium ABG Potassium ABG Glucose VBG pH Carboxyhemoglobin Sodium Potassium 3.1 L Chloride Carbon Dioxide 31 H BUN 30 H Creatinine 2.6 H Glucose 204 H POC Glucose 193 H Lactic Acid Calcium Phosphorus Magnesium AST ALT Total Creatine Kinase CK-MB (CK-2) Total Protein Albumin Free T4 Arterial Blood Glucose Arterial Blood Ionized Calcium Urine WBC (Auto) Urine Creatinine Ur Total Protein 24 Hr Urine Total Protein Coronavirus (PCR) Crossmatch 06/29/20 06/29/20 06/29/20 07:33 10:43 11:14 WBC RBC Hgb Hct MCV MCH MCHC RDW Lymph % (Auto) [place] % (Auto) [place] # (Auto) Seg Neutrophils % Seg Neuts % (Manual) Lymphocytes % (Manual) Monocytes % (Manual) Nucleated RBC % Seg Neutrophils # Seg Neutrophils # Man Lymphocytes # (Manual) Monocytes # (Manual) Basophils # (Manual) PT INR APTT ABG pH POC ABG pO2 ABG Hemoglobin ABG Oxyhemoglobin ABG Sodium ABG Potassium ABG Glucose VBG pH Carboxyhemoglobin Sodium Potassium Chloride Carbon Dioxide BUN Creatinine Glucose POC Glucose 324 H Lactic Acid Calcium Phosphorus Magnesium AST ALT Total Creatine Kinase 290 H CK-MB (CK-2) Total Protein Albumin Free T4 Arterial Blood Glucose Arterial Blood Ionized Calcium Urine WBC (Auto) Urine Creatinine Ur Total Protein 24 Hr Urine Total Protein Coronavirus (PCR) Positive A Crossmatch 06/29/20 06/29/20 06/30/20 17:07 22:36 07:42 WBC RBC Hgb Hct MCV MCH MCHC RDW Lymph % (Auto) [place] % (Auto) [place] # (Auto) Seg Neutrophils % Seg Neuts % (Manual) Lymphocytes % (Manual) Monocytes % (Manual) Nucleated RBC % Seg Neutrophils # Seg Neutrophils # Man Lymphocytes # (Manual) Monocytes # (Manual) Basophils # (Manual) PT INR APTT ABG pH POC ABG pO2 ABG Hemoglobin ABG Oxyhemoglobin ABG Sodium ABG Potassium ABG Glucose VBG pH Carboxyhemoglobin Sodium Potassium Chloride Carbon Dioxide BUN Creatinine Glucose POC Glucose 262 H 316 H 226 H Lactic Acid Calcium Phosphorus Magnesium AST ALT Total Creatine Kinase CK-MB (CK-2) Total Protein Albumin Free T4 Arterial Blood Glucose Arterial Blood Ionized Calcium Urine WBC (Auto) Urine Creatinine Ur Total Protein 24 Hr Urine Total Protein Coronavirus (PCR) Crossmatch 06/30/20 06/30/20 06/30/20 08:16 08:16 11:59 WBC RBC Hgb 10.6 L D Hct 31.7 L D MCV MCH MCHC RDW 15.4 H Lymph % (Auto) [place] % (Auto) [place] # (Auto) Seg Neutrophils % Seg Neuts % (Manual) Lymphocytes % (Manual) Monocytes % (Manual) 10.0 H Nucleated RBC % 1.0 H Seg Neutrophils # Seg Neutrophils # Man Lymphocytes # (Manual) Monocytes # (Manual) 1.0 H Basophils # (Manual) PT INR APTT ABG pH POC ABG pO2 ABG Hemoglobin ABG Oxyhemoglobin ABG Sodium ABG Potassium ABG Glucose VBG pH Carboxyhemoglobin Sodium Potassium 3.3 L Chloride Carbon Dioxide BUN 34 H Creatinine 2.4 H Glucose 238 H POC Glucose 220 H Lactic Acid Calcium Phosphorus Magnesium AST ALT Total Creatine Kinase CK-MB (CK-2) Total Protein Albumin Free T4 Arterial Blood Glucose Arterial Blood Ionized Calcium Urine WBC (Auto) Urine Creatinine Ur Total Protein 24 Hr Urine Total Protein Coronavirus (PCR) Crossmatch 06/30/20 06/30/20 07/01/20 17:31 21:25 04:45 WBC RBC 3.41 L Hgb 9.6 L Hct 28.7 L MCV MCH MCHC RDW 15.4 H Lymph % (Auto) [place] % (Auto) 11.9 H [place] # (Auto) 1.3 H Seg Neutrophils % Seg Neuts % (Manual) Lymphocytes % (Manual) Monocytes % (Manual) Nucleated RBC % Seg Neutrophils # Seg Neutrophils # Man Lymphocytes # (Manual) Monocytes # (Manual) Basophils # (Manual) PT INR APTT ABG pH POC ABG pO2 ABG Hemoglobin ABG Oxyhemoglobin ABG Sodium ABG Potassium ABG Glucose VBG pH Carboxyhemoglobin Sodium Potassium Chloride Carbon Dioxide BUN Creatinine Glucose POC Glucose 211 H 150 H Lactic Acid Calcium Phosphorus Magnesium AST ALT Total Creatine Kinase CK-MB (CK-2) Total Protein Albumin Free T4 Arterial Blood Glucose Arterial Blood Ionized Calcium Urine WBC (Auto) Urine Creatinine Ur Total Protein 24 Hr Urine Total Protein Coronavirus (PCR) Crossmatch 07/01/20 07/01/20 07/01/20 04:45 07:37 11:14 WBC RBC Hgb Hct MCV MCH MCHC RDW Lymph % (Auto) [place] % (Auto) [place] # (Auto) Seg Neutrophils % Seg Neuts % (Manual) Lymphocytes % (Manual) Monocytes % (Manual) Nucleated RBC % Seg Neutrophils # Seg Neutrophils # Man Lymphocytes # (Manual) Monocytes # (Manual) Basophils # (Manual) PT INR APTT ABG pH POC ABG pO2 ABG Hemoglobin ABG Oxyhemoglobin ABG Sodium ABG Potassium ABG Glucose VBG pH Carboxyhemoglobin Sodium Potassium 3.1 L Chloride Carbon Dioxide BUN 32 H Creatinine 2.5 H Glucose 127 H POC Glucose 142 H 229 H Lactic Acid Calcium Phosphorus Magnesium AST ALT Total Creatine Kinase CK-MB (CK-2) Total Protein Albumin Free T4 Arterial Blood Glucose Arterial Blood Ionized Calcium Urine WBC (Auto) Urine Creatinine Ur Total Protein 24 Hr Urine Total Protein Coronavirus (PCR) Crossmatch 07/01/20 07/01/20 07/02/20 15:52 21:05 04:22 WBC RBC 3.18 L Hgb 9.0 L Hct 26.8 L MCV MCH MCHC RDW 15.6 H Lymph % (Auto) [place] % (Auto) 11.7 H [place] # (Auto) 1.2 H Seg Neutrophils % Seg Neuts % (Manual) Lymphocytes % (Manual) Monocytes % (Manual) Nucleated RBC % Seg Neutrophils # Seg Neutrophils # Man Lymphocytes # (Manual) Monocytes # (Manual) Basophils # (Manual) PT INR APTT ABG pH POC ABG pO2 ABG Hemoglobin ABG Oxyhemoglobin ABG Sodium ABG Potassium ABG Glucose VBG pH Carboxyhemoglobin Sodium Potassium Chloride Carbon Dioxide BUN Creatinine Glucose POC Glucose 183 H 219 H Lactic Acid Calcium Phosphorus Magnesium AST ALT Total Creatine Kinase CK-MB (CK-2) Total Protein Albumin Free T4 Arterial Blood Glucose Arterial Blood Ionized Calcium Urine WBC (Auto) Urine Creatinine Ur Total Protein 24 Hr Urine Total Protein Coronavirus (PCR) Crossmatch 07/02/20 07/02/20 07/02/20 04:22 07:42 11:19 WBC RBC Hgb Hct MCV MCH MCHC RDW Lymph % (Auto) [place] % (Auto) [place] # (Auto) Seg Neutrophils % Seg Neuts % (Manual) Lymphocytes % (Manual) Monocytes % (Manual) Nucleated RBC % Seg Neutrophils # Seg Neutrophils # Man Lymphocytes # (Manual) Monocytes # (Manual) Basophils # (Manual) PT INR APTT ABG pH POC ABG pO2 ABG Hemoglobin ABG Oxyhemoglobin ABG Sodium ABG Potassium ABG Glucose VBG pH Carboxyhemoglobin Sodium Potassium 3.2 L Chloride Carbon Dioxide BUN 26 H Creatinine 2.3 H Glucose 101 H POC Glucose 122 H 203 H Lactic Acid Calcium Phosphorus Magnesium AST ALT Total Creatine Kinase CK-MB (CK-2) Total Protein Albumin Free T4 Arterial Blood Glucose Arterial Blood Ionized Calcium Urine WBC (Auto) Urine Creatinine Ur Total Protein 24 Hr Urine Total Protein Coronavirus (PCR) Crossmatch 07/02/20 07/02/20 07/03/20 16:22 22:21 05:29 WBC RBC 3.20 L Hgb 9.1 L Hct 26.9 L MCV MCH MCHC RDW Lymph % (Auto) [place] % (Auto) 13.0 H [place] # (Auto) 1.3 H Seg Neutrophils % Seg Neuts % (Manual) Lymphocytes % (Manual) Monocytes % (Manual) Nucleated RBC % Seg Neutrophils # Seg Neutrophils # Man Lymphocytes # (Manual) Monocytes # (Manual) Basophils # (Manual) PT INR APTT ABG pH POC ABG pO2 ABG Hemoglobin ABG Oxyhemoglobin ABG Sodium ABG Potassium ABG Glucose VBG pH Carboxyhemoglobin Sodium Potassium Chloride Carbon Dioxide BUN Creatinine Glucose POC Glucose 225 H 219 H Lactic Acid Calcium Phosphorus Magnesium AST ALT Total Creatine Kinase CK-MB (CK-2) Total Protein Albumin Free T4 Arterial Blood Glucose Arterial Blood Ionized Calcium Urine WBC (Auto) Urine Creatinine Ur Total Protein 24 Hr Urine Total Protein Coronavirus (PCR) Crossmatch 07/03/20 07/03/20 07/03/20 05:29 05:40 07:34 WBC RBC Hgb Hct MCV MCH MCHC RDW Lymph % (Auto) [place] % (Auto) [place] # (Auto) Seg Neutrophils % Seg Neuts % (Manual) Lymphocytes % (Manual) Monocytes % (Manual) Nucleated RBC % Seg Neutrophils # Seg Neutrophils # Man Lymphocytes # (Manual) Monocytes # (Manual) Basophils # (Manual) PT INR APTT ABG pH POC ABG pO2 ABG Hemoglobin ABG Oxyhemoglobin ABG Sodium ABG Potassium ABG Glucose VBG pH Carboxyhemoglobin Sodium Potassium 3.5 L Chloride 107.5 H Carbon Dioxide BUN 23 H Creatinine 2.0 H Glucose 112 H POC Glucose 106 H 122 H Lactic Acid Calcium Phosphorus Magnesium AST ALT Total Creatine Kinase CK-MB (CK-2) Total Protein Albumin Free T4 Arterial Blood Glucose Arterial Blood Ionized Calcium Urine WBC (Auto) Urine Creatinine Ur Total Protein 24 Hr Urine Total Protein Coronavirus (PCR) Crossmatch 07/03/20 12:27 WBC RBC Hgb Hct MCV MCH MCHC RDW Lymph % (Auto) [place] % (Auto) [place] # (Auto) Seg Neutrophils % Seg Neuts % (Manual) Lymphocytes % (Manual) Monocytes % (Manual) Nucleated RBC % Seg Neutrophils # Seg Neutrophils # Man Lymphocytes # (Manual) Monocytes # (Manual) Basophils # (Manual) PT INR APTT ABG pH POC ABG pO2 ABG Hemoglobin ABG Oxyhemoglobin ABG Sodium ABG Potassium ABG Glucose VBG pH Carboxyhemoglobin Sodium Potassium Chloride Carbon Dioxide BUN Creatinine Glucose POC Glucose 154 H Lactic Acid Calcium Phosphorus Magnesium AST ALT Total Creatine Kinase CK-MB (CK-2) Total Protein Albumin Free T4 Arterial Blood Glucose Arterial Blood Ionized Calcium Urine WBC (Auto) Urine Creatinine Ur Total Protein 24 Hr Urine Total Protein Coronavirus (PCR) Crossmatch Allied health notes reviewed: nursing
== END 2020-07-03 18:00 | disposition home health service (06) | DRG 871 ==
LOC: ED 09:53 → CC1 13:40 → 4A 06-23 09:38 → 3A 06-30 11:14
PROVIDERS: ADMIT Internal Medicine; ATTEND Hospitalist
PROC: B513ZZA Fluoroscopy of Right Jugular Veins, Guidance (ICD-10-PCS; principal; 2020-06-21)
PROC: 05HM33Z Insertion of Infusion Device into Right Internal Jugular Vein, Percutaneous Approach (ICD-10-PCS; 2020-06-21)
PROC: B543ZZA Ultrasonography of Right Jugular Veins, Guidance (ICD-10-PCS; 2020-06-21)
PROC: 30230N1 Transfusion of Nonautologous Red Blood Cells into Peripheral Vein, Open Approach (ICD-10-PCS; 2020-06-27)
PROC: 02HV33Z Insertion of Infusion Device into Superior Vena Cava, Percutaneous Approach (ICD-10-PCS; 2020-06-27)
PROC: 5A1D70Z Performance of Urinary Filtration, Intermittent, Less than 6 Hours Per Day (ICD-10-PCS; 2020-06-28)
DX: A41.9 Sepsis, unspecified organism (principal); U07.1 COVID-19; J80 Acute respiratory distress syndrome; E11.11 Type 2 diabetes mellitus with ketoacidosis with coma; G92 Toxic encephalopathy; N18.6 End stage renal disease; N17.0 Acute kidney failure with tubular necrosis; M62.82 Rhabdomyolysis; E87.1 Hypo-osmolality and hyponatremia; D72.829 Elevated white blood cell count, unspecified; I95.9 Hypotension, unspecified; E11.649 Type 2 diabetes mellitus with hypoglycemia without coma; E11.22 Type 2 diabetes mellitus with diabetic chronic kidney disease; T68.XXXA Hypothermia, initial encounter; D63.1 Anemia in chronic kidney disease; Z99.2 Dependence on renal dialysis; Z79.899 Other long term (current) drug therapy; Z79.891 Long term (current) use of opiate analgesic; Z79.01 Long term (current) use of anticoagulants; Z79.84 Long term (current) use of oral hypoglycemic drugs
CPT/HCPCS: 36415; 36556; 36600; 70450; 71046; 72125; 76770; 80048; 80053; 80074; 80307; 80320; 81001; 82140; 82330; 82550; 82553; 82570; 82805; 82947; 82962; 83735; 83970; 84100; 84145; 84156; 84439; 84443; 84484; 85007; 85025; 85610; 85730; 86850; 86900; 86901; 86920; 87040; 90471; 93005; 96374; 96375; G0378; C1752; G0480; J1170; J1644; J1815; J1956; J2060; J2250; J3010; J7030; J7040; J7070; J7120; P9016; U0003